=== PATIENT | male | born 1950 | race Caucasian/White ===

== ENCOUNTER 2021-08-17 13:42 | Inpatient (IN) | payer BC, MEDICARE ==
[2021-08-17] MEDS ORDERED: SODIUM CHLORIDE 0.9% 1,000 ML IV STA (14:05)
[2021-08-17 14:36] LABS: Anisocytosis Slight; Basophils % (A) 0 %; Eosinophils # (A) 0.1 k/uL (0-0.7); Eosinophils % (A) 0 %; HCT 33.4 % (39.0-53.0); Hypochromasia Marked; Lymphocytes # (A) 0.6 k/uL (1.0-4.8); Lymphocytes % (A) 4 %; MCH 29.4 pg (25.0-35.0); MCHC 29.9 g/dL (31.0-37.0); MCV 98.3 fL (80.0-100.0); Macrocytosis Slight; Monocytes # (A) 0.6 k/uL (0-1.0); Monocytes % (A) 3 %; Neutrophils # (A) 16.4 k/uL (1.3-7.7); Neutrophils % (A) 92 %; Platelet Count 285 k/uL (150-450); RBC 3.39 m/uL (4.30-5.90); RDW 18.2 % (11.5-15.5); WBC 17.7 k/uL (3.8-10.6)
[2021-08-17 14:46] LABS: ALT 25 U/L (4-49); AST 18 U/L (17-59); African American GFR (CKD) >90 (>60 ml/min/1.73 sqM); Albumin 2.9 g/dL (3.5-5.0); Alkaline Phosphatase 53 U/L (38-126); Anion Gap 7 mmol/L; Blood Urea Nitrogen 32 mg/dL (9-20); Calcium 8.5 mg/dL (8.4-10.2); Carbon Dioxide 27 mmol/L (22-30); Chloride 110 mmol/L (98-107); Glucose 54 mg/dL (74-99); Magnesium 1.8 mg/dL (1.6-2.3); Non-African American GFR(CKD) >90 (>60 ml/min/1.73 sqM); Potassium 5.1 mmol/L (3.5-5.1); Sodium 144 mmol/L (137-145); Total Bilirubin 0.5 mg/dL (0.2-1.3); Total Protein 5.6 g/dL (6.3-8.2)
[2021-08-17 14:53] LABS: INR 0.9 (<1.2); Prothrombin Time 10.2 sec (9.0-12.0)
[2021-08-17 14:56] LABS: Appearance,Urine Clear (Clear); Bacteria,Urine Rare /hpf; Bilirubin,Urine Negative (Negative); Blood,Urine Negative (Negative); Color,Urine Yellow; Glucose,Urine (UA) Negative (Negative); Ketones,Urine Trace (Negative); Leukocyte Esterase,Urine Negative (Negative); Nitrite,Urine Negative (Negative); PH, Urine 5.5 (5.0-8.0); Protein,Urine 1+ (Negative); RBC,Urine 1 /hpf (0-5); Specific Gravity,Urine 1.016 (1.001-1.035); Urobilinogen,Urine <2.0 mg/dL (<2.0); WBC,Urine 1 /hpf (0-5)
--- NOTE | 2021-08-17 14:57 | XR ---
EXAMINATION TYPE: XR chest 2V DATE OF EXAM: 08/17/2021 COMPARISON: 11/01/2013 INDICATION: Weakness TECHNIQUE: Frontal and lateral views of the chest are obtained. FINDINGS: The heart size is normal. The pulmonary vasculature is normal. Hyperinflation flattening the diaphragms compatible with COPD. Posterior pleural effusions are presen t. Minimal subsegmental atelectasis likely present at the left base. IMPRESSION: 1. Small bilateral pleural effusions with minimal subsegmental atelectasis left base.
[2021-08-17 14:58] LABS: Partial Thromboplastin Time 19.5 sec (22.0-30.0)
[2021-08-17 15:19] LABS: Glucose,Whole Blood 57 mg/dL (75-99)
[2021-08-17] MEDS ORDERED: cefTRIAXone IN SWFI 1,000 MG/10 ML SYRINGE IVP STA (15:19)
[2021-08-17] MEDS ORDERED: methylPREDNISolone SOD SUCCI 125 MG/2 ML VIAL IV STA (15:19)
[2021-08-17] MEDS: IPRATROPIUM-ALBUTEROL 3 ML NEB INHALATION STA (15:33)
[2021-08-17 15:36] LABS: Glucose,Whole Blood 81 mg/dL (75-99)
--- NOTE | 2021-08-17 15:43 | ED ---
General Adult HPI - General Chief complaint: Weakness Stated complaint: Weakness Time Seen by Provider: 08/17/21 13:45 Source: patient, EMS, RN notes reviewed, old records reviewed Mode of arrival: EMS Limitations: altered mental status - History of Present Illness Initial comments: This is a 71-year-old male who presents emergency Department from a retirement. Patient was sent in because of weakness and fatigue. According to EMS when they gave him a little bit of fluid he did seem to become more awake. Patient himself tells me he came in because he was having chest pain this morning and though the chest pain is currently gone it was pretty significant earlier today. Patient is a COPD as it is on oxygen at the retirement. Patient denies any recent fever chills. There is no report of any fever chills. Patient denies any abdominal pain. Patient denies any other complaints and at this time there is no further history available secondary to the fact that there is no family or caregiver with the patient - Related Data Home Medications Medication Instructions Recorded Confirmed Acetaminophen Tab [Tylenol] 650 mg PO Q4H PRN 08/17/21 08/17/21 Albuterol Inhaler [Ventolin Hfa 2 puff INHALATION RT-Q6H PRN 08/17/21 08/17/21 Inhaler] Budesonide [Pulmicort] 0.5 mg INHALATION RT-BID 08/17/21 08/17/21 Cephalexin [Keflex] 500 mg PO QID 08/17/21 08/17/21 Levothyroxine Sodium [Synthroid] 50 mcg PO DAILY@0500 08/17/21 08/17/21 Metoprolol Tartrate [Lopressor] 25 mg PO TID@0700,1300,1900 08/17/21 08/17/21 amLODIPine [Norvasc] 10 mg PO DAILY 08/17/21 08/17/21 hydrALAZINE HCL [Apresoline] 100 mg PO TID@0500,1300,2100 08/17/21 08/17/21 traMADol HCL 50 mg PO Q6H PRN 08/17/21 08/17/21 Allergies Allergy/AdvReac Type Severity Reaction Status Date / Time No Known Allergies Allergy Verified 08/17/21 14:21 Review of Systems ROS Statement: Those systems with pertinent positive or pertinent negative responses have been documented in the HPI. ROS Other: All systems not noted in ROS Statement are negative. Past Medical History Past Medical History: COPD, Hypertension History of Any Multi-Drug Resistant Organisms: None Reported Past Surgical History: No Surgical Hx Reported Additional Past Surgical History / Comment(s): colonoscopy Past Anesthesia/Blood Transfusion Reactions: No Reported Reaction Past Psychological History: No Psychological Hx Reported Smoking Status: Former smoker Past Alcohol Use History: Occasional Past Drug Use History: None Reported General Exam - General Exam Comments Initial Comments: GENERAL: Patient is well-developed and well-nourished. Patient is nontoxic and well- hydrated and is in mild distress. ENT: Neck is soft and supple. No significant lymphadenopathy is noted. Oropharynx is clear. Moist mucous membranes. Neck has full range of motion without eliciting any pain. EYES: The sclera were anicteric and conjunctiva were pink and moist. Extraocular movements were intact and pupils were equal round and reactive to light. Eyelids were unremarkable. PULMONARY: Unlabored respirations. Good breath sounds bilaterally. No audible rales rhonchi or wheezing was noted. CARDIOVASCULAR: There is a regular rate and rhythm without any murmurs gallops or rubs. ABDOMEN: Soft and nontender with normal bowel sounds. SKIN: Skin is clear with no lesions or rashes and otherwise unremarkable. NEUROLOGIC: Patient is alert and oriented 2. Cranial nerves II through XII are grossly intact. Motor and sensory are also intact. Normal speech, volume and content. Symmetrical smile. MUSCULOSKELETAL: Normal extremities with adequate strength and full range of motion. LYMPHATICS: No significant lymphadenopathy is noted PSYCHIATRIC: Normal psychiatric evaluation. Limitations: altered mental status Course Vital Signs 08/17/21 08/17/21 08/17/21 13:47 15:33 15:42 Temperature 98.4 F Pulse Rate 84 82 84 Respiratory 20 Rate Blood Pressure 141/64 O2 Sat by Pulse 97 Oximetry Medical Decision Making - Medical Decision Making Patient's chest x-ray shows no acute normalities. Patient received antibiotics in the emergency department a breathing treatment as well as steroids. EKG shows sinus rhythm at 87 bpm [place] interval is on a 48 QRS is 94 QT interval 342 QTC is 387. Patient's EKG shows no ST segment elevation or depression. - Lab Data Result diagrams: 08/17/21 14:19 08/17/21 14:19 Lab Results 08/17/21 08/17/21 08/17/21 Range/Units 14:19 14:19 14:19 WBC 17.7 H (3.8-10.6) k/uL RBC 3.39 L (4.30-5.90) m/uL Hgb 10.0 L (13.0-17.5) gm/dL Hct 33.4 L (39.0-53.0) % MCV 98.3 (80.0-100.0) fL MCH 29.4 (25.0-35.0) pg MCHC 29.9 L (31.0-37.0) g/dL RDW 18.2 H (11.5-15.5) % Plt Count 285 (150-450) k/uL MPV 10.0 Neutrophils % 92 % Lymphocytes % 4 % Monocytes % 3 % Eosinophils % 0 % Basophils % 0 % Neutrophils # 16.4 H (1.3-7.7) k/uL Lymphocytes # 0.6 L (1.0-4.8) k/uL Monocytes # 0.6 (0-1.0) k/uL Eosinophils # 0.1 (0-0.7) k/uL Basophils # 0.0 (0-0.2) k/uL Hypochromasia Marked Anisocytosis Slight Macrocytosis Slight PT 10.2 (9.0-12.0) sec INR 0.9 (<1.2) APTT 19.5 L (22.0-30.0) sec Sodium (137-145) mmol/L Potassium (3.5-5.1) mmol/L Chloride (98-107) mmol/L Carbon Dioxide (22-30) mmol/L Anion Gap mmol/L BUN (9-20) mg/dL Creatinine (0.66-1.25) mg/dL Est GFR (CKD-EPI)AfAm (>60 ml/min/1.73 sqM) Est GFR (CKD-EPI)NonAf (>60 ml/min/1.73 sqM) Glucose (74-99) mg/dL POC Glucose (mg/dL) (75-99) mg/dL POC Glu Electrical Panel Builder ID Plasma Lactic Acid Samir (0.7-2.0) mmol/L Calcium (8.4-10.2) mg/dL Magnesium (1.6-2.3) mg/dL Total Bilirubin (0.2-1.3) mg/dL AST (17-59) U/L ALT (4-49) U/L Alkaline Phosphatase (38-126) U/L Troponin I (0.000-0.034) ng/mL Total Protein (6.3-8.2) g/dL Albumin (3.5-5.0) g/dL Urine Color Yellow Urine Appearance Clear (Clear) Urine pH 5.5 (5.0-8.0) Ur Specific [place] 1.016 (1.001-1.035) Urine Protein 1+ H (Negative) Urine Glucose (UA) Negative (Negative) Urine Ketones Trace H (Negative) Urine Blood Negative (Negative) Urine Nitrite Negative (Negative) Urine Bilirubin Negative (Negative) Urine Urobilinogen <2.0 (<2.0) mg/dL Ur Leukocyte Esterase Negative (Negative) Urine RBC 1 (0-5) /hpf Urine WBC 1 (0-5) /hpf Urine Bacteria Rare H (None) /hpf 08/17/21 08/17/21 08/17/21 Range/Units 14:19 14:19 14:19 WBC (3.8-10.6) k/uL RBC (4.30-5.90) m/uL Hgb (13.0-17.5) gm/dL Hct (39.0-53.0) % MCV (80.0-100.0) fL MCH (25.0-35.0) pg MCHC (31.0-37.0) g/dL RDW (11.5-15.5) % Plt Count (150-450) k/uL MPV Neutrophils % % Lymphocytes % % Monocytes % % Eosinophils % % Basophils % % Neutrophils # (1.3-7.7) k/uL Lymphocytes # (1.0-4.8) k/uL Monocytes # (0-1.0) k/uL Eosinophils # (0-0.7) k/uL Basophils # (0-0.2) k/uL Hypochromasia Anisocytosis Macrocytosis PT (9.0-12.0) sec INR (<1.2) APTT (22.0-30.0) sec Sodium 144 (137-145) mmol/L Potassium 5.1 (3.5-5.1) mmol/L Chloride 110 H (98-107) mmol/L Carbon Dioxide 27 (22-30) mmol/L Anion Gap 7 mmol/L BUN 32 H (9-20) mg/dL Creatinine 0.69 (0.66-1.25) mg/dL Est GFR (CKD-EPI)AfAm >90 (>60 ml/min/1.73 sqM) Est GFR (CKD-EPI)NonAf >90 (>60 ml/min/1.73 sqM) Glucose 54 L (74-99) mg/dL POC Glucose (mg/dL) (75-99) mg/dL POC Glu Electrical Panel Builder ID Plasma Lactic Acid Samir 1.0 (0.7-2.0) mmol/L Calcium 8.5 (8.4-10.2) mg/dL Magnesium 1.8 (1.6-2.3) mg/dL Total Bilirubin 0.5 (0.2-1.3) mg/dL AST 18 (17-59) U/L ALT 25 (4-49) U/L Alkaline Phosphatase 53 (38-126) U/L Troponin I 0.020 (0.000-0.034) ng/mL Total Protein 5.6 L (6.3-8.2) g/dL Albumin 2.9 L (3.5-5.0) g/dL Urine Color Urine Appearance (Clear) Urine pH (5.0-8.0) Ur Specific [place] (1.001-1.035) Urine Protein (Negative) Urine Glucose (UA) (Negative) Urine Ketones (Negative) Urine Blood (Negative) Urine Nitrite (Negative) Urine Bilirubin (Negative) Urine Urobilinogen (<2.0) mg/dL Ur Leukocyte Esterase (Negative) Urine RBC (0-5) /hpf Urine WBC (0-5) /hpf Urine Bacteria (None) /hpf 08/17/21 08/17/21 Range/Units 15:09 15:34 WBC (3.8-10.6) k/uL RBC (4.30-5.90) m/uL Hgb (13.0-17.5) gm/dL Hct (39.0-53.0) % MCV (80.0-100.0) fL MCH (25.0-35.0) pg MCHC (31.0-37.0) g/dL RDW (11.5-15.5) % Plt Count (150-450) k/uL MPV Neutrophils % % Lymphocytes % % Monocytes % % Eosinophils % % Basophils % % Neutrophils # (1.3-7.7) k/uL Lymphocytes # (1.0-4.8) k/uL Monocytes # (0-1.0) k/uL Eosinophils # (0-0.7) k/uL Basophils # (0-0.2) k/uL Hypochromasia Anisocytosis Macrocytosis PT (9.0-12.0) sec INR (<1.2) APTT (22.0-30.0) sec Sodium (137-145) mmol/L Potassium (3.5-5.1) mmol/L Chloride (98-107) mmol/L Carbon Dioxide (22-30) mmol/L Anion Gap mmol/L BUN (9-20) mg/dL Creatinine (0.66-1.25) mg/dL Est GFR (CKD-EPI)AfAm (>60 ml/min/1.73 sqM) Est GFR (CKD-EPI)NonAf (>60 ml/min/1.73 sqM) Glucose (74-99) mg/dL POC Glucose (mg/dL) 57 L 81 (75-99) mg/dL POC Glu Electrical Panel Builder ID Jin, Ivis Jin, Ivis Plasma Lactic Acid Samir (0.7-2.0) mmol/L Calcium (8.4-10.2) mg/dL Magnesium (1.6-2.3) mg/dL Total Bilirubin (0.2-1.3) mg/dL AST (17-59) U/L ALT (4-49) U/L Alkaline Phosphatase (38-126) U/L Troponin I (0.000-0.034) ng/mL Total Protein (6.3-8.2) g/dL Albumin (3.5-5.0) g/dL Urine Color Urine Appearance (Clear) Urine pH (5.0-8.0) Ur Specific [place] (1.001-1.035) Urine Protein (Negative) Urine Glucose (UA) (Negative) Urine Ketones (Negative) Urine Blood (Negative) Urine Nitrite (Negative) Urine Bilirubin (Negative) Urine Urobilinogen (<2.0) mg/dL Ur Leukocyte Esterase (Negative) Urine RBC (0-5) /hpf Urine WBC (0-5) /hpf Urine Bacteria (None) /hpf Disposition Clinical Impression: COPD exacerbation, Weakness, Chest pain, Pneumonia Disposition: ADMITTED IP TO THIS HOSP Referrals: Nonstaff,Physician [Primary Care Provider] - 1-2 days Time of Disposition: 15:44
[2021-08-17] MEDS ORDERED: IPRATROPIUM-ALBUTEROL 3 ML NEB INHALATION PRN (16:55)
[2021-08-17] MEDS ORDERED: ALBUTEROL HFA INHALER INHALATION PRN (17:59)
[2021-08-17] MEDS ORDERED: METOPROLOL TARTRATE 25 MG TAB PO SCH (19:00)
[2021-08-17] MEDS: methylPREDNISolone SOD SUCCI 125 MG/2 ML VIAL IV SCH (19:42)
[2021-08-17] MEDS: BUDESONIDE 0.5 MG/2 ML NEBU INHALATION SCH ×2 (20:26→20:29)
[2021-08-17] MEDS ORDERED: CEFDINIR 300 MG CAP PO SCH (21:00)
[2021-08-17] MEDS ORDERED: HEPARIN SODIUM,PORCINE/PF 5,000 UNIT/0.5 ML SYRINGE SQ SCH (21:00)
[2021-08-17] MEDS ORDERED: FAMOTIDINE 20 MG/2 ML VIAL IV SCH (21:00)
[2021-08-17] MEDS ORDERED: METOPROLOL TARTRATE 25 MG TAB PO STA (23:26)
[2021-08-17] MEDS ORDERED: SODIUM CHLORIDE 0.9% 500 ML 500 ML IV ONE (23:27)
[2021-08-18] MEDS: methylPREDNISolone SOD SUCCI 125 MG/2 ML VIAL IV SCH ×4 (00:09→17:22)
[2021-08-18] MEDS ORDERED: DILTIAZEM DRIP BOLUS FROM BAG 1 MG SOLN IV ONE (02:28)
[2021-08-18] MEDS ORDERED: DILTIAZEM 125 MG in SODIUM CHLORIDE 0.9% 100 ML IV SCH (02:30)
[2021-08-18 02:54] LABS: Glucose,Whole Blood 191 mg/dL (75-99)
[2021-08-18] MEDS ORDERED: DEXTROSE 5% IN WATER 100 ML with AMIODARONE 150 MG IV ONE (04:00)
[2021-08-18] MEDS ORDERED: ENOXAPARIN 40 MG/0.4 ML SYRINGE SQ SCH (04:00)
[2021-08-18] MEDS ORDERED: AMIODARONE 450 MG in DEXTROSE 5% IN WATER 250 ML IV SCH ×2 (04:09)
[2021-08-18] MEDS ORDERED: AMIODARONE 360 MG in DEXTROSE 5% IN WATER 200 ML IV ONE ×2 (04:10)
[2021-08-18 06:11] LABS: Glucose,Whole Blood 201 mg/dL (75-99)
[2021-08-18] MEDS: INSULIN ASPART (NovoLOG) 100 UNIT/ML VIAL SQ SCH ×4 (06:41→20:52)
[2021-08-18] MEDS: LEVOTHYROXINE 50 MCG TAB PO SCH (06:47)
[2021-08-18] MEDS ORDERED: SODIUM CHLORIDE 0.9% 500 ML 500 ML IV ONE (07:04)
[2021-08-18] MEDS: BUDESONIDE 0.5 MG/2 ML NEBU INHALATION SCH ×2 (07:20→20:20)
--- NOTE | 2021-08-18 07:56 | CT ---
EXAMINATION TYPE: CT brain wo con DATE OF EXAM: 08/18/2021 HISTORY: Confusion, High D-dimer CT DLP: 1158.4 mGycm. Automated Exposure Control for Dose Reduction was Utilized. TECHNIQUE: CT scan of the head is performed without contrast. COMPARISON: None. FINDINGS: There is no acute intracranial hemorrhage or midline shift identified. There is mild diff use ventricular and sulcal prominence consistent with diffuse age-related cerebral atrophy. There is more severe low-attenuation in the deep and periventricular white matter, nonspecific finding favore d product of proximal vessel ischemic change in patient of this age. Dependent opacification suspecte d fluid in the left sphenoid sinus and maxillary sinus. IMPRESSION: No acute intracranial hemorrhage or midline shift. There is mild diffuse cerebral atrop hy and severe nonspecific white matter changes favored product of chronic small vessel ischemic carmona e in patient of this age.
--- NOTE | 2021-08-18 08:01 | CT ---
EXAMINATION TYPE: CT chest angio for PE DATE OF EXAM: 08/18/2021 COMPARISON: Chest CT June 05, 2013. Chest x-ray earlier today HISTORY: Shortness of breath, High D-dimer CT DLP: 255.6 mGycm. Automated Exposure Control for Dose Reduction was Utilized. CONTRAST: CTA scan of the thorax is performed without and with IV Contrast, patient injected with 100 ml mL of Isovue 370, pulmonary embolism protocol. MIP Images are created on CT scanner and reviewed. FINDINGS: LUNGS: Moderate underlying emphysematous changes present. There are small right greater than left ple ural effusions confirmed with associated compressive atelectasis. There is central peribronchial wall thickening bilaterally. There is additional 3.3 x 1.4 cm posterior right upper lung scar or less lik dinesh spiculated nodule axial image 24 extending towards right superhilar level with linear scarring th ought present. MEDIASTINUM: There is satisfactory enhancement of the pulmonary artery and its branches, there is no CT evidence for pulmonary embolism. Enlarged main pulmonary artery consistent with underlying pulmona ry artery hypertension . There are no greater than 1 cm hilar or mediastinal lymph nodes. No cardio megaly or pericardial effusion is seen. Moderate mixed plaque in the thoracic aorta without aneurysm or dissection. OTHER: Slight scoliotic curvature or positioning. IMPRESSION: No CT evidence for acute pulmonary embolism. Moderate emphysematous change with small siz e right greater than left pleural effusions. Focal scarring versus spiculated nodule posterior right upper lobe new from [address] follow-up to further evaluate.
--- NOTE | 2021-08-18 08:44 | P.HPIM ---
History of Present Illness This is a pleasant 71 years old male with past medical history of COPD, Hyperlipidemia, Hypertension, Osteoarthritis , Metabolic Encaphalopathy, Acute kidney failure with tubular necrosis, Cachexia, Chronic non-pressure ulcer of back, Rhabdomylosis was sent from [facility] with increased weakness and lethargy over the last 2-3days Patient is poor historian but as per staff with his he has been a retirement for the last 1-2 months and his been confused. pt looks cachectic and very frail, he is oriented to time ,place and person , but has no denture, his voice is muffled because of that he is been complaining from dyspnea and chest pain which is mild in the middle nonradiating and associated with very little cough. He says his shortness of breath was worse over the last 1 day and a half. Denies any abdominal pain or vomiting or diarrhea but he has low appetite. He denies any choking or swallow problem but he has no denture so we'll check for swallow evaluation Patient looks tachypneic with bilateral chest with some limited air entry but no ricardo wheezing. Patient states that he quit smoking about 10 years ago, used to smoke for more than 10 years. No alcohol or illicit drugs. He has multiple pressure ulcers he has one large pressure ulcers on the right leg laterally with drying scab Or any dressing . Also has multiple pressure ulcers with black eschar on both heels and left foot. The surrounding skin looks intact with no redness or swelling. On admission he was slightly tachypneic on 20, afebrile and heart rate was 84 and blood pressure 141/64, however overnight his blood pressure dropped with systolic 90s to 100, currently his blood pressure 104/68, also became tachycardic with heart rate 04/17/2049. He was saturating 9920% on 2-3 L oxygen via nasal cannula. He is mildly hypothermic at 97.2 His WBC is elevated at 17.7. Hemoglobin is 10.0. Platelet count 258. INR 0.9. BUN is 32 and creatinine 0.9. Troponin is 0.02 and less than 0.01. Glucose was on the low side 57 on admission and currently is 201. Urinalysis showed 1+ protein with no evidence of infection. Patient started on steroids and got a breathing treatment, IV fluids and started on amiodarone drips and Lovenox in the emergency room. D-dimer was elevated, therefore CTA of the chest was done which showed negative for pulmonary embolism, emphysematous changes with small pleural effusion. Also there is focal scattered versus speculated nodule in the right upper lobe we ordered stat CT of the brain and CT of the chest to rule out pulmonary embolism given his hypotension, tachycardia and tachypnea with elevated d-dimer. Also with mild hypoxia suspected. However patient confused per staff when he came in and could not be started on heparin drip before we rule out intracranial bleed before CT of the brain is also ordered with CT of the chest. Both tests came back negative Review of Systems CONSTITUTIONAL: No fever, no malaise, no fatigue. HEENT: No recent visual problems or hearing problems. Denied any sore throat. CARDIOVASCULAR: No orthopnea, PND, no palpitations, no syncope. PULMONARY: No shortness of breath, no cough, no hemoptysis. GASTROINTESTINAL: No diarrhea, no nausea, no vomiting, no abdominal pain. Normoactive bowel sounds. NEUROLOGICAL: No headaches, no weakness, no numbness. HEMATOLOGICAL: Denies any bleeding or petechiae. GENITOURINARY: Denies any burning micturition, frequency, or urgency. MUSCULOSKELETAL/RHEUMATOLOGICAL: Denies any joint pain, swelling, or any muscle pain. ENDOCRINE: Denies any polyuria or polydipsia. Past Medical History Past Medical History: COPD, Hyperlipidemia, Hypertension, Osteoarthritis (OA) Additional Past Medical History / Comment(s): Anemia, Metabolic Encaphalopathy, Acute kidney failure with tubular necrosis, Cachexia, Chronic non-pressure ulcer of back, Rhabdomylosis, History of Any Multi-Drug Resistant Organisms: None Reported Past Surgical History: No Surgical Hx Reported Additional Past Surgical History / Comment(s): colonoscopy Past Anesthesia/Blood Transfusion Reactions: No Reported Reaction Past Psychological History: No Psychological Hx Reported Smoking Status: Former smoker Past Alcohol Use History: Unable to Obtain Past Drug Use History: None Reported Medications and Allergies Home Medications Medication Instructions Recorded Confirmed Type Acetaminophen Tab [Tylenol] 650 mg PO Q4H PRN 08/17/21 08/17/21 History Albuterol Inhaler [Ventolin Hfa 2 puff INHALATION RT-Q6H PRN 08/17/21 08/17/21 History Inhaler] Budesonide [Pulmicort] 0.5 mg INHALATION RT-BID 08/17/21 08/17/21 History Cephalexin [Keflex] 500 mg PO QID 08/17/21 08/17/21 History Levothyroxine Sodium [Synthroid] 50 mcg PO DAILY@0500 08/17/21 08/17/21 History Metoprolol Tartrate [Lopressor] 25 mg PO TID@0700,1300,1900 08/17/21 08/17/21 History amLODIPine [Norvasc] 10 mg PO DAILY 08/17/21 08/17/21 History hydrALAZINE HCL [Apresoline] 100 mg PO TID@0500,1300,2100 08/17/21 08/17/21 History traMADol HCL 50 mg PO Q6H PRN 08/17/21 08/17/21 History Allergies Allergy/AdvReac Type Severity Reaction Status Date / Time No Known Allergies Allergy Verified 08/17/21 14:21 Physical Exam Vitals: Vital Signs Temp Pulse Pulse Resp BP BP Pulse Ox 08/18/21 04:26 138 H 28 H 102/64 100 08/18/21 03:57 146 H 32 H 100/61 100 08/18/21 03:23 147 H 30 H 95/63 99 08/18/21 01:01 97.2 F L 150 H 17 111/71 100 08/17/21 22:42 153 H 18 97/66 98 08/17/21 20:33 08/17/21 19:33 97.8 F 121 H 18 115/62 98 08/17/21 18:10 98.6 F 78 18 121/64 95 08/17/21 17:42 84 18 131/69 99 08/17/21 16:00 76 18 135/64 99 08/17/21 15:42 84 08/17/21 15:33 82 08/17/21 13:47 98.4 F 84 20 141/64 97 FiO2 08/18/21 04:26 08/18/21 03:57 08/18/21 03:23 08/18/21 01:01 08/17/21 22:42 08/17/21 20:33 3 08/17/21 19:33 08/17/21 18:10 08/17/21 17:42 08/17/21 16:00 08/17/21 15:42 08/17/21 15:33 08/17/21 13:47 Intake and Output 08/17/21 08/17/21 08/18/21 14:59 22:59 06:59 Intake Total 1.125 Output Total 200 600 Balance -200 -598.875 Intake: Intake, IV Titration 1.125 Amount Diltiazem 125 mg In 1.125 Sodium Chloride 0.9% 100 ml @ 7.5 MG/HR 7.5 mls/hr IV .[id number] [facility] Rx#: [id number] Output: Urine 200 600 Other: Voiding Method Indwelling Catheter # Bowel Movements 0 Weight 54.431 kg 54.431 kg GENERAL: The patient is alert and oriented x3, not in any acute distress. Cachectic HEENT: Pupils are round and equally reacting to light. EOMI. No scleral icterus. No conjunctival pallor. Normocephalic, atraumatic. No pharyngeal erythema. No thyromegaly. CARDIOVASCULAR: S1 and S2 present. No murmurs, rubs, or gallops. -PULMONARY: Chest is clear to auscultation, no wheezing or crackles. Barrel chest with limited air entry ABDOMEN: Soft, nontender, nondistended, normoactive bowel sounds. No palpable organomegaly. MUSCULOSKELETAL: No joint swelling or deformity. -EXTREMITIES: No cyanosis, clubbing, or pedal edema. multiple leg wounds , including both heels and large one on the right leg laterally with right area on the top of the wound NEUROLOGICAL: Gross neurological examination did not reveal any focal deficits. SKIN: No rashes. No petechiae Results CBC & Chem 7: 08/17/21 14:19 08/17/21 14:19 Labs: Abnormal Lab Results - Last 24 Hours (Table) 08/17/21 08/17/21 08/17/21 Range/Units 14:19 14:19 14:19 WBC 17.7 H (3.8-10.6) k/uL RBC 3.39 L (4.30-5.90) m/uL Hgb 10.0 L (13.0-17.5) gm/dL Hct 33.4 L (39.0-53.0) % MCHC 29.9 L (31.0-37.0) g/dL RDW 18.2 H (11.5-15.5) % Neutrophils # 16.4 H (1.3-7.7) k/uL Lymphocytes # 0.6 L (1.0-4.8) k/uL APTT 19.5 L (22.0-30.0) sec D-Dimer (<0.60) mg/L FEU Chloride (98-107) mmol/L BUN (9-20) mg/dL Glucose (74-99) mg/dL POC Glucose (mg/dL) (75-99) mg/dL Total Protein (6.3-8.2) g/dL Albumin (3.5-5.0) g/dL Urine Protein 1+ H (Negative) Urine Ketones Trace H (Negative) Urine Bacteria Rare H (None) /hpf 08/17/21 08/17/21 08/18/21 Range/Units 14:19 15:09 02:52 WBC (3.8-10.6) k/uL RBC (4.30-5.90) m/uL Hgb (13.0-17.5) gm/dL Hct (39.0-53.0) % MCHC (31.0-37.0) g/dL RDW (11.5-15.5) % Neutrophils # (1.3-7.7) k/uL Lymphocytes # (1.0-4.8) k/uL APTT (22.0-30.0) sec D-Dimer (<0.60) mg/L FEU Chloride 110 H (98-107) mmol/L BUN 32 H (9-20) mg/dL Glucose 54 L (74-99) mg/dL POC Glucose (mg/dL) 57 L 191 H (75-99) mg/dL Total Protein 5.6 L (6.3-8.2) g/dL Albumin 2.9 L (3.5-5.0) g/dL Urine Protein (Negative) Urine Ketones (Negative) Urine Bacteria (None) /hpf 08/18/21 08/18/21 Range/Units 06:02 06:05 WBC (3.8-10.6) k/uL RBC (4.30-5.90) m/uL Hgb (13.0-17.5) gm/dL Hct (39.0-53.0) % MCHC (31.0-37.0) g/dL RDW (11.5-15.5) % Neutrophils # (1.3-7.7) k/uL Lymphocytes # (1.0-4.8) k/uL APTT (22.0-30.0) sec D-Dimer 0.97 H (<0.60) mg/L FEU Chloride (98-107) mmol/L BUN (9-20) mg/dL Glucose (74-99) mg/dL POC Glucose (mg/dL) 201 H (75-99) mg/dL Total Protein (6.3-8.2) g/dL Albumin (3.5-5.0) g/dL Urine Protein (Negative) Urine Ketones (Negative) Urine Bacteria (None) /hpf Thrombosis Risk Factor Assmnt - Choose All That Apply Any of the Below Risk Factors Present?: Yes Each Factor Represents 1 point: Abnormal pulmonary function (COPD) Other Risk Factors: Yes Each Risk Factor Represents 2 Points: Age 61-74 years Thrombosis Risk Factor Assessment Total Risk Factor Score: 3 Thrombosis Risk Factor Assessment Level: Moderate Risk Assessment and Plan Assessment: Multiple pressure ulcers with suspected infection Possible Severe sepsis COPD with exacerbation Hypotension and tachycardia Moderate to severe calories and protein malnutrition multiple leg wounds elevated d-dimer, rule out PE ruled out focal scattered versus speculated nodule in the right upper lobe History of hypertension, currently he is hypotensive Hyperlipidemia Dehydration Chronic altered mental status with some elements of acute related to metabolic encephalopathy. Possible dementia History of osteoarthritis History of chronic nonpressure ulcer of the back Plan: This is a pleasant 71 years old male who presents with COPD and possible infect ed pressure ulcers and hypotension Continue with steroids Continue with antibiotics . We will start the patient on clindamycin Continue with normal saline hydration check pro-calcitonin and infectious disease consult Check thyroid function, hemoglobin A1c and potential started the nursery. cardiology consult for the chest pain and tachycardia Pulmonary consult for COPD check leg ultrasound to rule out DVT in view of elevated d-dimer and leg wounds Labs and medication were reviewed.. Continue same treatment. Continue with symptomatic treatment. Resume home medication. Monitor lytes and vitals. DVT and GI prophylaxis. Further recommendations depends on the clinical course of the patient DVT prophylaxis: Subcutaneous LovenoxGI Prophylaxis: Pepcid PT/OT: Pending Prognosis is guarded CODE STATUS Full code per per staff
[2021-08-18 09:14] LABS: African American GFR (CKD) 87.4 (60.0-200.0); Calcium 8.6 mg/dL (8.7-10.3); Carbon Dioxide 23.2 mmol/L (20.0-27.5); Chloride 107 mmol/L (96-109); Glucose 197 mg/dL (70-110); Non-African American GFR(CKD) 75.4 (60.0-200.0); Potassium 5.6 mmol/L (3.5-5.5); Sodium 143 mmol/L (135-145)
[2021-08-18 09:55] LABS: Basophils # (A) 0 X 10*3/uL (0.00-0.10); Basophils % (A) 0 %; Eosinophils # (A) 0.07 X 10*3/uL (0.04-0.35); Eosinophils % (A) 0.7 %; HCT 28.2 % (39.6-50.0); HGB 8.4 g/dL (13.0-17.0); Immature Grans, Automated 0.5 %; Lymphocytes # (A) 0.35 X 10*3/uL (0.90-5.00); Lymphocytes % (A) 3.4 %; MCH 28.8 pg (27.0-32.0); MCHC 29.8 g/dL (32.0-37.0); MCV 96.6 fL (80.0-97.0); Monocytes # (A) 0.07 X 10*3/uL (0.20-1.00); Monocytes % (A) 0.7 %; NRBC Per 100 WBC 0.2 /100 WBCS (0.0-0.0); Neutrophils # (A) 9.69 X 10*3/uL (1.80-7.70); Neutrophils % (A) 94.7 %; Platelet Count 240 X 10*3/uL (140-440); RBC 2.92 X 10*6/uL (4.40-5.60); RDW 21.4 % (11.5-14.5); WBC 10.23 X 10*3/uL (4.50-10.00)
[2021-08-18] MEDS: CLINDAMYCIN 300 MG in DEXTROSE 5% IN WATER 50 ML IVPB SCH ×4 (10:00→17:52)
[2021-08-18] MEDS: FAMOTIDINE 20 MG TAB PO SCH ×2 (10:00→21:10)
[2021-08-18] MEDS: SODIUM CHLORIDE 0.9% 1,000 ML IV SCH ×2 (10:03→21:09)
[2021-08-18] MEDS: METOPROLOL TARTRATE 25 MG TAB PO SCH ×2 (10:04→21:10)
--- NOTE | 2021-08-18 11:13 | P.CRDCN ---
History of Present Illness History of present illness: HISTORY OF PRESENTING ILLNESS This is a pleasant 71-year-old male past medical history significant for COPD, former smoker, hypertension, hyperlipidemia, hypothyroidism, pressure ulcers. He does not follow with a pump technician. We have been asked to see in consultation for SVT. Patient presents from a long-term with generalized weakness, cough, shortness of breath. He states he had some chest discomfort across his anterior chest. Non-radiating. Non-exertional, it has resolved. Patient is alert, oriented to person and knows he is in the hospital. He denies any chest pain. He does endorse some shortness of breath. He denies any fever, chills, lightheadedness, dizziness, syncope. He denies any history of LA, Stroke, Diabetes, or CAD. He does have multiple wounds on bilateral lower extremities. On admission, he initially was in sinus rhythm. However, went into SVT vs atrial flutter with rapid ventricular response, HR 150s. Patient hypotensive. Started on IV amiodarone and IV fluids DIAGNOSTICS EKG on admission, Sinus rhythm heart rate 87, minimal ST depression in inferior leads, T wave inversion in lead aVL, LVH. Prior EKG in 2013 with similar findings Repeat EKG SVT vs Aflutter with RVR HR 150s-160s Telemetry tracings indicate atrial flutter with HR 130s-140s Chest xray COPD, small bilateral pleural effusions CTA- no PE, moderate emphysematous change with small right greater than left pleural effusion. Focal scarring vs nodule posterior right upper lobe CT Brain- no acute intracranial abnormality, mild diffuse cerebral atrophy, severe non-specific white matter changes Laboratory reviewed, WBC 17.7, hemoglobin 10, platelets 285, sodium 144, potassium 5.1, BUN 32, serum creatinine 0.6, troponin negative 2. Current home medications include hydralazine 100 mg 3 times a day, amlodipine 10 mg daily, metoprolol titrate 25 mg 3 times a day REVIEW OF SYSTEMS At the time of my exam: CONSTITUTIONAL: Denies fever or chills. CARDIOVASCULAR: Denies chest pain, Reports shortness of breath, Denies orthopnea, PND or palpitations. RESPIRATORY: Denies cough. GASTROINTESTINAL: Denies abdominal pain, diarrhea, constipation, nausea or vomiting. MUSCULOSKELETAL: Denies myalgias. NEUROLOGIC: Denies numbness, tingling, headache or weakness. ENDOCRINE: Denies fatigue, weight change, polydipsia or polyurina. GENITOURINARY: Denies burning, hematuria or urgency with micturation. HEMATOLOGIC: +history of anemia Denies bleeding. PHYSICAL EXAMINATION VItals reviewed CONSTITUTIONAL: No apparent distress. HEENT: Head is normocephalic. Pupils are equal, round. Sclerae anicteric. Mucous membranes of the mouth are dry. No JVD. No carotid bruit. CHEST EXAMINATION: Lungs are diminished bilaterally to auscultation. No chest wall tenderness is noted on palpation or with deep breathing. HEART EXAMINATION: Regular tachycardic rate and rhythm. S1, S2 heard. Systolic murmur noted at apex and base. ABDOMEN: Soft, nontender. Positive bowel sounds. EXTREMITIES: 1+ dorsal pedis peripheral pulses, no lower extremity edema and no calf tenderness. SKIN: multiple pressure ulcer wounds on bilateral lower extremities NEUROLOGIC EXAMINATION: Patient is awake, alert and oriented x2 ASSESSMENT SVT vs atypical atrial flutter with RVR COPD Hypotension Leukocytosis Anemia History of hypertension History of dyslipidemia Anemia PLAN Continue IV amiodarone Metoprolol tartrate 25mg BID Hold hydralazine Continue Lovenox at this time Obtain 2D echocardiogram and doppler study to assess cardiac structure and function. Check TSH Prognosis guarded Further recommendations based on clinical course Thank you kindly for this consultation. Nurse practitioner note has been reviewed by physician. Signing provider agrees with the documented findings, assessment, and plan of care. Past Medical History Past Medical History: COPD, Hyperlipidemia, Hypertension, Osteoarthritis (OA) Additional Past Medical History / Comment(s): Anemia, Metabolic Encaphalopathy, Acute kidney failure with tubular necrosis, Cachexia, Chronic non-pressure ulcer of back, Rhabdomylosis, History of Any Multi-Drug Resistant Organisms: None Reported Past Surgical History: No Surgical Hx Reported Additional Past Surgical History / Comment(s): colonoscopy Past Anesthesia/Blood Transfusion Reactions: No Reported Reaction Past Psychological History: No Psychological Hx Reported Smoking Status: Former smoker Past Alcohol Use History: Unable to Obtain Past Drug Use History: None Reported Medications and Allergies Home Medications Medication Instructions Recorded Confirmed Type Acetaminophen Tab [Tylenol] 650 mg PO Q4H PRN 08/17/21 08/17/21 History Albuterol Inhaler [Ventolin Hfa 2 puff INHALATION RT-Q6H PRN 08/17/21 08/17/21 History Inhaler] Budesonide [Pulmicort] 0.5 mg INHALATION RT-BID 08/17/21 08/17/21 History Cephalexin [Keflex] 500 mg PO QID 08/17/21 08/17/21 History Levothyroxine Sodium [Synthroid] 50 mcg PO DAILY@0500 08/17/21 08/17/21 History Metoprolol Tartrate [Lopressor] 25 mg PO TID@0700,1300,1900 08/17/21 08/17/21 History amLODIPine [Norvasc] 10 mg PO DAILY 08/17/21 08/17/21 History hydrALAZINE HCL [Apresoline] 100 mg PO TID@0500,1300,2100 08/17/21 08/17/21 History traMADol HCL 50 mg PO Q6H PRN 08/17/21 08/17/21 History Allergies Allergy/AdvReac Type Severity Reaction Status Date / Time No Known Allergies Allergy Verified 08/17/21 14:21 Physical Exam Vitals: Vital Signs Temp Pulse Pulse Resp BP BP Pulse Ox 08/18/21 04:26 138 H 28 H 102/64 100 08/18/21 03:57 146 H 32 H 100/61 100 08/18/21 03:23 147 H 30 H 95/63 99 08/18/21 01:01 97.2 F L 150 H 17 111/71 100 08/17/21 22:42 153 H 18 97/66 98 08/17/21 20:33 08/17/21 19:33 97.8 F 121 H 18 115/62 98 08/17/21 18:10 98.6 F 78 18 121/64 95 08/17/21 17:42 84 18 131/69 99 08/17/21 16:00 76 18 135/64 99 08/17/21 15:42 84 08/17/21 15:33 82 08/17/21 13:47 98.4 F 84 20 141/64 97 FiO2 08/18/21 04:26 08/18/21 03:57 08/18/21 03:23 08/18/21 01:01 08/17/21 22:42 08/17/21 20:33 3 08/17/21 19:33 08/17/21 18:10 08/17/21 17:42 08/17/21 16:00 08/17/21 15:42 08/17/21 15:33 08/17/21 13:47 Intake and Output 08/17/21 08/18/21 08/18/21 22:59 06:59 14:59 Intake Total 1.125 Output Total 200 600 Balance -200 -598.875 Intake: Intake, IV Titration 1.125 Amount Diltiazem 125 mg In 1.125 Sodium Chloride 0.9% 100 ml @ 7.5 MG/HR 7.5 mls/hr IV .[id number] [facility] Rx#: [id number] Output: Urine 200 600 Other: Voiding Method Indwelling Catheter # Bowel Movements 0 Weight 54.431 kg Results 08/18/21 06:04 08/18/21 06:04 Cardiac Enzymes 08/17/21 08/17/21 08/18/21 Range/Units 14:19 14:19 06:04 AST 18 (17-59) U/L Troponin I 0.020 <0.012 (0.000-0.034) ng/mL Coagulation 08/17/21 Range/Units 14:19 PT 10.2 (9.0-12.0) sec APTT 19.5 L (22.0-30.0) sec CBC 08/17/21 Range/Units 14:19 WBC 17.7 H (3.8-10.6) k/uL RBC 3.39 L (4.30-5.90) m/uL Hgb 10.0 L (13.0-17.5) gm/dL Hct 33.4 L (39.0-53.0) % Plt Count 285 (150-450) k/uL Comprehensive Metabolic Panel 08/17/21 Range/Units 14:19 Sodium 144 (137-145) mmol/L Potassium 5.1 (3.5-5.1) mmol/L Chloride 110 H (98-107) mmol/L Carbon Dioxide 27 (22-30) mmol/L BUN 32 H (9-20) mg/dL Creatinine 0.69 (0.66-1.25) mg/dL Glucose 54 L (74-99) mg/dL Calcium 8.5 (8.4-10.2) mg/dL AST 18 (17-59) U/L ALT 25 (4-49) U/L Alkaline Phosphatase 53 (38-126) U/L Total Protein 5.6 L (6.3-8.2) g/dL Albumin 2.9 L (3.5-5.0) g/dL Current Medications Generic Name Dose Route Start Last Admin Trade Name Freq PRN Reason Stop Dose Admin Acetaminophen 650 mg 08/17/21 17:59 Acetaminophen Tab 325 Mg Tab PO Q4H PRN Pain or Fever > 100.5 Albuterol/Ipratropium 3 ml 08/17/21 16:55 Ipratropium-Albuterol 3 Ml Neb INHALATION RT-Q4H PRN Shortness Of Breath Or Wheezing Budesonide 0.5 mg 08/17/21 20:00 08/18/21 07:20 Budesonide 0.5 Mg/2 Ml Nebu INHALATION Not Given RT-BID GRACIE Cefdinir 300 mg 08/17/21 21:00 08/17/21 21:31 Cefdinir 300 Mg Cap PO 08/27/21 21:01 300 mg BID GRACIE Administration Protocol Enoxaparin Sodium 40 mg 08/18/21 04:00 08/18/21 03:54 Enoxaparin 40 Mg/0.4 Ml Syringe SQ 40 mg Q12H GRACIE Administration Famotidine 20 mg 08/18/21 09:00 Famotidine 20 Mg Tab PO BID GRACIE Amiodarone HCl 360 mg/ 200 mls @ 33.333 mls/hr 08/18/21 04:10 08/18/21 04:16 Dextrose/Water IV 08/18/21 10:09 1 mg/min .Q6H ONE 33.333 mls/hr Administration Protocol 1 MG/MIN Amiodarone HCl 450 mg/ 250 mls @ 16.667 mls/hr 08/18/21 10:09 Dextrose/Water IV 08/19/21 04:08 .Q15H GRACIE Protocol 0.5 MG/MIN Sodium Chloride 1,000 mls @ 100 mls/hr 08/18/21 07:15 Saline 0.9% IV .Q10H GRACIE Sodium Chloride 500 mls @ 999 mls/hr 08/18/21 07:04 Saline 0.9% IV 08/18/21 07:34 .Q31M ONE Insulin Aspart 0 unit 08/18/21 07:30 08/18/21 06:41 Insulin Aspart (Novolog) 100 Unit/Ml Vial SQ 2 unit ACHS GRACIE Administration Protocol Levothyroxine Sodium 50 mcg 08/18/21 05:00 08/18/21 06:47 Levothyroxine 50 Mcg Tab PO 50 mcg DAILY@0500 GRACIE Administration Methylprednisolone Sodium Succinate 60 mg 08/17/21 18:00 08/18/21 06:46 Methylprednisolone Sod Succi 125 Mg/2 Ml Vial IV 60 mg Q6HR GRACIE Administration Tramadol HCl 50 mg 08/17/21 17:59 Tramadol 50 Mg Tab PO Q6H PRN Pain Intake and Output 08/17/21 08/18/21 08/18/21 22:59 06:59 14:59 Intake Total 1.125 Output Total 200 600 Balance -200 -598.875 Intake: Intake, IV Titration 1.125 Amount Diltiazem 125 mg In 1.125 Sodium Chloride 0.9% 100 ml @ 7.5 MG/HR 7.5 mls/hr IV .[id number] [facility] Rx#: [id number] Output: Urine 200 600 Other: Voiding Method Indwelling Catheter # Bowel Movements 0 Weight 54.431 kg 08/17/21 14:19 08/17/21 14:19
[2021-08-18 12:08] LABS: Glucose,Whole Blood 154 mg/dL (75-99)
--- NOTE | 2021-08-18 12:26 | CA ---
Transthoracic Echo Report Name: Dani Jimenes Age: 71 Gender: M : 1950 Exam Date: 08/18/2021 11:30 Exam Location: [facility] Ht (in): 66 Wt (lb): 120 Ordering Physician: Lucille Decker Attending/Referring Phys: Plate Washer Nkechi Cueva RDCS Procedure CPT: Indications: atrial flutter Cardiac Hx: Technical Quality: Fair Contrast 1: Total Dose (mL): Contrast 2: Total Dose (mL): MEASUREMENTS (Male / Female) Normal Values 2D ECHO LV Diastolic Diameter PLAX 3.9 cm 4.2 - 5.9 / 3.9 - 5.3 cm LV Systolic Diameter PLAX 2.3 cm IVS Diastolic Thickness 0.9 cm 0.6 - 1.0 / 0.6 - 0.9 cm LVPW Diastolic Thickness 1.1 cm 0.6 - 1.0 / 0.6 - 0.9 cm LV Relative Wall Thickness 0.5 LA Volume 105.1 cm??? 18 - 58 / 22 - 52 cm??? DOPPLER AV Peak Velocity 350.8 cm/s AV Peak Gradient 49.2 mmHg AV Mean Velocity 262.0 cm/s AV Mean Gradient 30.1 mmHg AV Velocity Time Integral 86.7 cm AI Peak Velocity 452.4 cm/s AI Peak Gradient 81.8 mmHg AI Pressure Half Time 270.2 ms LVOT Peak Velocity 82.3 cm/s LVOT Peak Gradient 2.7 mmHg MV Area PHT 5.3 cm??? Mitral E Point Velocity 135.4 cm/s Mitral A Point Velocity 69.4 cm/s Mitral E to A Ratio 2.0 MV Deceleration Time 144.2 ms TR Peak Velocity 306.3 cm/s TR Peak Gradient 37.5 mmHg Right Ventricular Systolic Press 42.4 mmHg FINDINGS Left Ventricle Left ventricular cavity size normal. Left ventricular wall thickness normal. No obvious regional wall motion abnormalities. Left ventricular ejection fraction is estimated at 50 %. Abnormal left ventricular diastolic filling pattern. Right Ventricle Mild pulmonary hypertension. Normal right ventricular size. Right Atrium Normal right atrial size. Left Atrium Severely increased left atrial volume. No evidence for an atrial septal defect. Mitral Valve Mild mitral annular calcification. Moderate mitral regurgitation. Aortic Valve Moderate aortic stenosis with a peak gradient of 49 mmHg and a mean gradient of 30 mmHg. [id number] aortic regurgitation. Tricuspid Valve Mild tricuspid regurgitation. Pulmonic Valve Pulmonic valve not well visualized. Pericardium No pericardial effusion. Aorta Normal size aortic root and proximal ascending aorta. CONCLUSIONS Left ventricular ejection fraction borderline at 50% Severely dilated left atrium Moderate mitral regurgitation Moderate aortic stenosis with mean gradient of 30 mmHg Mild to moderate aortic regurgitation Mild tricuspid regurgitation Previewed by: Dr. Alex Corbett DO (Electronically Signed) Final Date: 18 August 2021 12:25
--- NOTE | 2021-08-18 12:27 | P.CNPUL ---
History of Present Illness Consult date: 08/18/21 Requesting physician: Kenny Acuna Reason for consult: dyspnea Chief complaint: Shortness of breath History of present illness: 71-year-old male patient with known history of severe end-stage COPD, with a baseline FEV1 of 0.67 L or 25% predicted as November 2020 PFT, on home oxygen patient usually wears 3 L of oxygen on a regular basis, ex-smoker, chronic dyspnea, hypertension, hyperlipidemia, osteoarthritis, cachexia, chronic nonhealing ulcers involving bilateral feet. Patient was recently required hospitalization in the last several weeks at the [facility] when he required mechanical ventilator support. Patient follows with Dr. Hall in the pulmonary clinic. On 08/17/2021 patient presents to the emergency department from a assisted because of weakness and fatigue. Patient was also complaining of some chest discomfort in the morning, and shortness of breath. Denied any recent fever or chills. No worsening cough wheezing or phlegm production. No hemoptysis. Chest x-ray showed small bilateral pleural effusions with minimal subsegmental atelectasis at the left base. EKG showed sinus rhythm, with minimal ST depression in inferior leads, and T-wave inversion in aVL and LVH. Laboratory evaluation showed elevated white count of 17.7, hemoglobin of 10.0, platelet count of 285, d-dimer was mildly elevated to 0.97, sodium is 144, potassium is 5.1, BUN of 32, creatinine 0.69, 2 sets of troponins were negative at 0.020, less than 0.012, pro-calcitonin level was elevated to 0.50, TSH was within normal limits, LFTs were within normal limits, plasma lact ic acid was 1.3 urinalysis without sign of infection. CT angiogram of the chest showed no evidence of acute pulmonary embolism, and moderate emphysematous change with small size right greater than left pleural effusions. There was focal scarring versus spiculated nodule in the posterior right upper lobe which is new from 2014 study with recommendation of follow-up PET scan. Patient is currently on 3 L of oxygen pulse ox is 99%, he is very short of breath at rest, but appears to be in no acute distress, he is able to answer some simple questions, but he does have conversational dyspnea as well. Afebrile, he is tachycardic, cardiology has been consulted for SVT. Patient is on amiodarone i nfusion at 1 mg/m for rate control, he is on empiric antibiotics and breathing treatments and IV steroids. Review of Systems All systems: negative Constitutional: Denies chills, Denies fever Eyes: denies blurred vision, denies pain Ears, nose, mouth and throat: Denies headache, Denies sore throat Cardiovascular: Reports chest pain, Denies shortness of breath Respiratory: Reports dyspnea, Denies cough Gastrointestinal: Denies abdominal pain, Denies diarrhea, Denies nausea, Denies vomiting Musculoskeletal: Denies myalgias Integumentary: Denies pruritus, Denies rash Neurological: Denies numbness, Denies weakness Psychiatric: Denies anxiety, Denies depression Endocrine: Denies fatigue, Denies weight change Past Medical History Past Medical History: COPD, Hyperlipidemia, Hypertension, Osteoarthritis (OA) Additional Past Medical History / Comment(s): Anemia, Metabolic Encaphalopathy, Acute kidney failure with tubular necrosis, Cachexia, Chronic non-pressure ulcer of back, Rhabdomylosis, History of Any Multi-Drug Resistant Organisms: None Reported Past Surgical History: No Surgical Hx Reported Additional Past Surgical History / Comment(s): colonoscopy Past Anesthesia/Blood Transfusion Reactions: No Reported Reaction Past Psychological History: No Psychological Hx Reported Smoking Status: Former smoker Past Alcohol Use History: Unable to Obtain Past Drug Use History: None Reported Medications and Allergies Home Medications Medication Instructions Recorded Confirmed Type Acetaminophen Tab [Tylenol] 650 mg PO Q4H PRN 08/17/21 08/17/21 History Albuterol Inhaler [Ventolin Hfa 2 puff INHALATION RT-Q6H PRN 08/17/21 08/17/21 History Inhaler] Budesonide [Pulmicort] 0.5 mg INHALATION RT-BID 08/17/21 08/17/21 History Cephalexin [Keflex] 500 mg PO QID 08/17/21 08/17/21 History Levothyroxine Sodium [Synthroid] 50 mcg PO DAILY@0500 08/17/21 08/17/21 History Metoprolol Tartrate [Lopressor] 25 mg PO TID@0700,1300,1900 08/17/21 08/17/21 History amLODIPine [Norvasc] 10 mg PO DAILY 08/17/21 08/17/21 History hydrALAZINE HCL [Apresoline] 100 mg PO TID@0500,1300,2100 08/17/21 08/17/21 History traMADol HCL 50 mg PO Q6H PRN 08/17/21 08/17/21 History Allergies Allergy/AdvReac Type Severity Reaction Status Date / Time No Known Allergies Allergy Verified 08/17/21 14:21 Physical Exam Vitals: Vital Signs Temp Pulse Pulse Resp BP BP Pulse Ox 08/18/21 08:00 97.7 F 138 H 22 110/65 99 08/18/21 04:26 138 H 28 H 102/64 100 08/18/21 03:57 146 H 32 H 100/61 100 08/18/21 03:23 147 H 30 H 95/63 99 08/18/21 01:01 97.2 F L 150 H 17 111/71 100 08/17/21 22:42 153 H 18 97/66 98 08/17/21 20:33 08/17/21 19:33 97.8 F 121 H 18 115/62 98 08/17/21 18:10 98.6 F 78 18 121/64 95 08/17/21 17:42 84 18 131/69 99 08/17/21 16:00 76 18 135/64 99 08/17/21 15:42 84 08/17/21 15:33 82 08/17/21 13:47 98.4 F 84 20 141/64 97 FiO2 08/18/21 08:00 08/18/21 04:26 08/18/21 03:57 08/18/21 03:23 08/18/21 01:01 08/17/21 22:42 08/17/21 20:33 3 08/17/21 19:33 08/17/21 18:10 08/17/21 17:42 08/17/21 16:00 08/17/21 15:42 08/17/21 15:33 08/17/21 13:47 Intake and Output 08/17/21 08/18/21 08/18/21 22:59 06:59 14:59 Intake Total 1.125 Output Total 200 600 Balance -200 -598.875 Intake: Intake, IV Titration 1.125 Amount Diltiazem 125 mg In 1.125 Sodium Chloride 0.9% 100 ml @ 7.5 MG/HR 7.5 mls/hr IV .[id number] [facility] Rx#: [id number] Output: Urine 200 600 Other: Voiding Method Indwelling Catheter Indwelling Catheter # Bowel Movements 0 Weight 54.431 kg GENERAL EXAM: Alert, pleasant, cachectic-looking 71-year-old white male, on 3 L of oxygen pulse ox is 99%, comfortable in no apparent distress. HEAD: Normocephalic/atraumatic. EYES: Normal reaction of pupils, equal size. Conjunctiva pink, sclera white. NOSE: Clear with pink turbinates. THROAT: No erythema or exudates. NECK: No masses, no JVD, no thyroid enlargement, no adenopathy. CHEST: No chest wall deformity. Symmetrical expansion. LUNGS: Equal air entry with diffuse crackles, diminished breath sounds CVS: Regular rate and rhythm, normal S1 and S2, no gallops, no murmurs, no rubs ABDOMEN: Soft, nontender. No hepatosplenomegaly, normal bowel sounds, no guarding or rigidity. EXTREMITIES: No clubbing, no edema, no cyanosis, 2+ pulses and upper and lower extremities. MUSCULOSKELETAL: Muscle strength and tone normal. SPINE: No scoliosis or deformity SKIN: No rashes CENTRAL NERVOUS SYSTEM: Alert and oriented -3. No focal deficits, tone is normal in all 4 extremities. PSYCHIATRIC: Alert and oriented -3. Appropriate affect. Intact judgment and insight. Results - Laboratory Findings CBC and BMP: 08/18/21 06:04 08/18/21 06:04 PT/INR, D-dimer PT 10.2 sec (9.0-12.0) 08/17/21 14:19 INR 0.9 (<1.2) 08/17/21 14:19 D-Dimer 0.97 mg/L FEU (<0.60) H 08/18/21 06:05 Abnormal lab findings: Abnormal Labs 08/17/21 08/17/21 08/17/21 14:19 14:19 14:19 WBC 17.7 H RBC 3.39 L Hgb 10.0 L Hct 33.4 L MCHC 29.9 L RDW 18.2 H MPV Absolute Nucleated RBC Immature Gran # Neutrophils # 16.4 H Lymphocytes # 0.6 L Monocytes # NRBC/100 WBC Diff APTT 19.5 L D-Dimer Potassium Chloride BUN BUN/Creatinine Ratio Glucose POC Glucose (mg/dL) Calcium Total Protein Albumin Procalcitonin Urine Protein 1+ H Urine Ketones Trace H Urine Bacteria Rare H 08/17/21 08/17/21 08/18/21 14:19 15:09 02:52 WBC RBC Hgb Hct MCHC RDW MPV Absolute Nucleated RBC Immature Gran # Neutrophils # Lymphocytes # Monocytes # NRBC/100 WBC Diff APTT D-Dimer Potassium Chloride 110 H BUN 32 H BUN/Creatinine Ratio Glucose 54 L POC Glucose (mg/dL) 57 L 191 H Calcium Total Protein 5.6 L Albumin 2.9 L Procalcitonin Urine Protein Urine Ketones Urine Bacteria 08/18/21 08/18/21 08/18/21 06:02 06:04 06:04 WBC 10.23 H RBC 2.92 L Hgb 8.4 L Hct 28.2 L MCHC 29.8 L RDW 21.4 H MPV 13.0 H Absolute Nucleated RBC 0.02 H Immature Gran # 0.05 H Neutrophils # 9.69 H Lymphocytes # 0.35 L Monocytes # 0.07 L NRBC/100 WBC Diff 0.2 H APTT D-Dimer Potassium Chloride BUN BUN/Creatinine Ratio Glucose POC Glucose (mg/dL) 201 H Calcium Total Protein Albumin Procalcitonin 0.50 H Urine Protein Urine Ketones Urine Bacteria 08/18/21 08/18/21 06:04 06:05 WBC RBC Hgb Hct MCHC RDW MPV Absolute Nucleated RBC Immature Gran # Neutrophils # Lymphocytes # Monocytes # NRBC/100 WBC Diff APTT D-Dimer 0.97 H Potassium 5.6 H Chloride BUN 32.0 H BUN/Creatinine Ratio 32.00 H Glucose 197 H POC Glucose (mg/dL) Calcium 8.6 L Total Protein Albumin Procalcitonin Urine Protein Urine Ketones Urine Bacteria - Diagnostic Findings Chest x-ray: report reviewed, image reviewed CT scan - chest: report reviewed, image reviewed Assessment and Plan Plan: Assessment: #1. Acute exacerbation of COPD #2. A flutter with RVR, currently on amiodarone infusion #3. History of severe end-stage COPD with baseline FEV1 of 0.5% of predicted #4. Chronic hypoxic respiratory failure related to the above #5. Former smoker #6. Nonhealing bilateral lower extremity ulcers #7. Elevated pro-calcitonin level, rule out possibility of infection #8. Mildly elevated d-dimer, with no CT evidence of pulmonary embolism #9. Focal scarring versus spiculated nodule in the right upper lobe, will need outpatient follow-up, and possible PET scan #10. Chronic cachexia #11. Hypertension #12. Hyperlipidemia #13. Hypothyroidism #14. Osteoarthritis Plan: Continue IV steroids Continue nebulized bronchodilators Continue antibiotics Obtain blood cultures Rate control and anticoagulation per cardiology We'll continue to follow I have personally seen and examined the patient, performed the documentation and the assessment and plan as written. Number of minutes spent on the visit: 15 Time with Patient: Greater than 30
[2021-08-18] MEDS: AMIODARONE 450 MG in DEXTROSE 5% IN WATER 250 ML IV SCH ×2 (12:28)
--- NOTE | 2021-08-18 12:31 | US ---
EXAMINATION TYPE: US venous doppler duplex LE DATE OF EXAM: 08/18/2021 12:09 PM COMPARISON: NONE CLINICAL HISTORY: 71-year-old male Leg swelling. SIDE PERFORMED: Bilateral TECHNIQUE: The lower extremity deep venous system is examined utilizing real time linear array sonog jeremie with graded compression, doppler sonography and color-flow sonography. VESSELS IMAGED: Common Femoral Vein Deep Femoral Vein Greater Saphenous Vein * Femoral Vein Popliteal Vein Small Saphenous Vein * Proximal Calf Veins (* superficial vessels) Dice Dealer notes: Limited due to edema and patient positioning. Right Leg: Color flow seen in all veins imaged. Vein coats appear thick. CFV and prox femoral vein a ppear to compress incompletely. Possible chronic internal echoes along wall. Unable to visualize calf veins at the ankle. Left Leg: Color flow seen in all veins imaged. Vein coats appear thick. CFV and popliteal vein appea r to compress incompletely. Possible chronic internal echoes along wall. Unable to visualize calf vei ns at the ankle. IMPRESSION: 1. No occlusive, acute lower extreme DVT seen on either side. Very limited exam due to soft tissue ed agustin and patient positioning. 2. However, there is incomplete compressibility on the right of the CFV and upper femoral vein. Incom plete compressibility on the left of the CFV and popliteal vein. There is also venous wall thickening and some peripheral echoes. Some underlying chronic mural-based DVT is suggested.
[2021-08-18 16:30] LABS: Estimated Average Glucose UNC
[2021-08-18 16:37] LABS: Glucose,Whole Blood 112 mg/dL (75-99)
[2021-08-18] MEDS: FORMOTEROL FUMARATE 20 MCG/2 ML NEBU INHALATION SCH (20:20)
[2021-08-18] MEDS: BUDESONIDE 1 MG/2 ML NEBU INHALATION SCH (20:31)
[2021-08-18 20:38] LABS: Glucose,Whole Blood 130 mg/dL (75-99)
[2021-08-18] MEDS: ENOXAPARIN 60 MG/0.6 ML SYRINGE SQ SCH (21:10)
--- NOTE | 2021-08-18 22:19 | P.CONS ---
History of Present Illness - Reason for Consult Consult date: 08/18/21 Leg wounds Requesting physician: Bubba E Sheet - Chief Complaint Weakness x days - History of Present Illness Patient is a 71-year-old male with past medical he significant for COPD hypertension hyperlipidemia recurrent aspiration pneumonia, a recent multiple admission at [facility] for aspiration pneumonia at the patient also have a multiple pressure ulcer patient was subsequently transferred to the local shelter patient has been brought to the ER from the shelter with concern for weakness and fatigue, patient was complaining of some shortness of breath mild chest but no vomiting patient on presentation to the hospital was afebrile and no fever have been recorded subsequently patient did have a white count of 17 which came down to 10.23 D-dimer was mildly elevated creatinine was normal procalcitonin was mildly elevated patient did have a chest x-ray small bilateral effusion with minimal subsegmental atelectasis left base patient did have a CT angiogram of the chest that was negative for PE did shows emphysematous changes and some evidence of fluid overload did not mention any consolidation, the patient was started on clindamycin the patient did have multiple pressure ulcers of the lower extremity infectious disease was consulted for further management of antibiotic most information has been reviewed from review the chart and talking nursing staff as the patient himself not a very good historian Review of Systems Positive point has been mentioned in the HPI rest of the systems are negative Past Medical History Past Medical History: COPD, Hyperlipidemia, Hypertension, Osteoarthritis (OA) Additional Past Medical History / Comment(s): Anemia, Metabolic Encaphalopathy, Acute kidney failure with tubular necrosis, Cachexia, Chronic non-pressure ulcer of back, Rhabdomylosis, History of Any Multi-Drug Resistant Organisms: None Reported Past Surgical History: No Surgical Hx Reported Additional Past Surgical History / Comment(s): colonoscopy Past Anesthesia/Blood Transfusion Reactions: No Reported Reaction Past Psychological History: No Psychological Hx Reported Smoking Status: Former smoker Past Alcohol Use History: Unable to Obtain Past Drug Use History: None Reported Medications and Allergies Home Medications Medication Instructions Recorded Confirmed Type Acetaminophen Tab [Tylenol] 650 mg PO Q4H PRN 08/17/21 08/17/21 History Albuterol Inhaler [Ventolin Hfa 2 puff INHALATION RT-Q6H PRN 08/17/21 08/17/21 History Inhaler] Budesonide [Pulmicort] 0.5 mg INHALATION RT-BID 08/17/21 08/17/21 History Levothyroxine Sodium [Synthroid] 50 mcg PO DAILY@0500 08/17/21 08/17/21 History amLODIPine [Norvasc] 10 mg PO DAILY 08/17/21 08/17/21 History Amiodarone [Cordarone] 200 mg PO BID tab 09/07/21 Rx Docusate [Colace] 100 mg PO BID PRN cap 09/07/21 Rx Famotidine [Pepcid] 20 mg PO DAILY tab 09/07/21 Rx Ipratropium-Albuterol Nebulize 3 ml INHALATION RT-Q4H PRN each 09/07/21 Rx [Duoneb 0.5 mg-3 mg/3 ml Soln] Metoprolol Tartrate [Lopressor] 100 mg PO BID tab 09/07/21 Rx predniSONE 10 mg PO DIRECTED #25 tab 09/07/21 Rx Allergies Allergy/AdvReac Type Severity Reaction Status Date / Time No Known Allergies Allergy Verified 08/17/21 14:21 Physical Exam Vitals: Vital Signs Temp Pulse Pulse Resp BP BP Pulse Ox 08/18/21 13:14 97.3 F L 77 19 134/68 97 08/18/21 08:00 97.7 F 138 H 22 110/65 99 08/18/21 04:26 138 H 28 H 102/64 100 08/18/21 03:57 146 H 32 H 100/61 100 08/18/21 03:23 147 H 30 H 95/63 99 08/18/21 01:01 97.2 F L 150 H 17 111/71 100 08/17/21 22:42 153 H 18 97/66 98 08/17/21 20:33 08/17/21 19:33 97.8 F 121 H 18 115/62 98 08/17/21 18:10 98.6 F 78 18 121/64 95 08/17/21 17:42 84 18 131/69 99 08/17/21 16:00 76 18 135/64 99 08/17/21 15:42 84 08/17/21 15:33 82 08/17/21 13:47 98.4 F 84 20 141/64 97 FiO2 08/18/21 13:14 08/18/21 08:00 08/18/21 04:26 08/18/21 03:57 08/18/21 03:23 08/18/21 01:01 08/17/21 22:42 08/17/21 20:33 3 08/17/21 19:33 08/17/21 18:10 08/17/21 17:42 08/17/21 16:00 08/17/21 15:42 08/17/21 15:33 08/17/21 13:47 Intake and Output 08/17/21 08/18/21 08/18/21 22:59 06:59 14:59 Intake Total 1.125 Output Total 200 600 Balance -200 -598.875 Intake: Intake, IV Titration 1.125 Amount Diltiazem 125 mg In 1.125 Sodium Chloride 0.9% 100 ml @ 7.5 MG/HR 7.5 mls/hr IV .[id number] [facility] Rx#: [id number] Output: Urine 200 600 Other: Voiding Method Indwelling Catheter Indwelling Catheter # Bowel Movements 0 Weight 54.431 kg GENERAL DESCRIPTION: Elderly male lying in bed, no distress. No tachypnea or accessory muscle of respiration use. HEENT: Shows Pallor , no scleral icterus. Oral mucous membrane is dry. No pharyngeal erythema or thrush NECK: Trachea central, no thyromegaly. LUNGS: Unlabored breathing. Decreased breath sound the bases No wheeze or crackle. HEART: S1, S2, regular rate and rhythm. No loud murmur ABDOMEN: Soft, no tenderness , guarding or rigidity, no organomegaly EXTREMITIES: No edema of feet. SKIN: Multiple wounds which are drying out with some slough tissue to the left thigh wound no surrounding redness. NEUROLOGICAL: The patient is awake, alert, oriented x3, mood and affect normal. Results CBC & Chem 7: 09/05/21 08:16 09/05/21 08:16 Labs: Abnormal Lab Results - Last 24 Hours (Table) 08/17/21 08/17/21 08/17/21 Range/Units 14:19 14:19 14:19 WBC 17.7 H (3.8-10.6) k/uL RBC 3.39 L (4.30-5.90) m/uL Hgb 10.0 L (13.0-17.5) gm/dL Hct 33.4 L (39.0-53.0) % MCHC 29.9 L (31.0-37.0) g/dL RDW 18.2 H (11.5-15.5) % MPV (9.5-12.2) fL Absolute Nucleated RBC (0.00-0.00) X 10*3/uL Immature Gran # (0.00-0.04) X 10*3/uL Neutrophils # 16.4 H (1.3-7.7) k/uL Lymphocytes # 0.6 L (1.0-4.8) k/uL Monocytes # (0.20-1.00) X 10*3/uL NRBC/100 WBC Diff (0.0-0.0) /100 WBCS APTT 19.5 L (22.0-30.0) sec D-Dimer (<0.60) mg/L FEU Potassium (3.5-5.5) mmol/L Chloride (98-107) mmol/L BUN (9-20) mg/dL BUN/Creatinine Ratio (12.00-20.00) Ratio Glucose (74-99) mg/dL POC Glucose (mg/dL) (75-99) mg/dL Calcium (8.7-10.3) mg/dL Total Protein (6.3-8.2) g/dL Albumin (3.5-5.0) g/dL Procalcitonin (0.02-0.09) ng/mL Urine Protein 1+ H (Negative) Urine Ketones Trace H (Negative) Urine Bacteria Rare H (None) /hpf 08/17/21 08/17/21 08/18/21 Range/Units 14:19 15:09 02:52 WBC (3.8-10.6) k/uL RBC (4.30-5.90) m/uL Hgb (13.0-17.5) gm/dL Hct (39.0-53.0) % MCHC (31.0-37.0) g/dL RDW (11.5-15.5) % MPV (9.5-12.2) fL Absolute Nucleated RBC (0.00-0.00) X 10*3/uL Immature Gran # (0.00-0.04) X 10*3/uL Neutrophils # (1.3-7.7) k/uL Lymphocytes # (1.0-4.8) k/uL Monocytes # (0.20-1.00) X 10*3/uL NRBC/100 WBC Diff (0.0-0.0) /100 WBCS APTT (22.0-30.0) sec D-Dimer (<0.60) mg/L FEU Potassium (3.5-5.5) mmol/L Chloride 110 H (98-107) mmol/L BUN 32 H (9-20) mg/dL BUN/Creatinine Ratio (12.00-20.00) Ratio Glucose 54 L (74-99) mg/dL POC Glucose (mg/dL) 57 L 191 H (75-99) mg/dL Calcium (8.7-10.3) mg/dL Total Protein 5.6 L (6.3-8.2) g/dL Albumin 2.9 L (3.5-5.0) g/dL Procalcitonin (0.02-0.09) ng/mL Urine Protein (Negative) Urine Ketones (Negative) Urine Bacteria (None) /hpf 08/18/21 08/18/21 08/18/21 Range/Units 06:02 06:04 06:04 WBC 10.23 H (3.8-10.6) k/uL RBC 2.92 L (4.30-5.90) m/uL Hgb 8.4 L (13.0-17.5) gm/dL Hct 28.2 L (39.0-53.0) % MCHC 29.8 L (31.0-37.0) g/dL RDW 21.4 H (11.5-15.5) % MPV 13.0 H (9.5-12.2) fL Absolute Nucleated RBC 0.02 H (0.00-0.00) X 10*3/uL Immature Gran # 0.05 H (0.00-0.04) X 10*3/uL Neutrophils # 9.69 H (1.3-7.7) k/uL Lymphocytes # 0.35 L (1.0-4.8) k/uL Monocytes # 0.07 L (0.20-1.00) X 10*3/uL NRBC/100 WBC Diff 0.2 H (0.0-0.0) /100 WBCS APTT (22.0-30.0) sec D-Dimer (<0.60) mg/L FEU Potassium (3.5-5.5) mmol/L Chloride (98-107) mmol/L BUN (9-20) mg/dL BUN/Creatinine Ratio (12.00-20.00) Ratio Glucose (74-99) mg/dL POC Glucose (mg/dL) 201 H (75-99) mg/dL Calcium (8.7-10.3) mg/dL Total Protein (6.3-8.2) g/dL Albumin (3.5-5.0) g/dL Procalcitonin 0.50 H (0.02-0.09) ng/mL Urine Protein (Negative) Urine Ketones (Negative) Urine Bacteria (None) /hpf 08/18/21 08/18/21 08/18/21 Range/Units 06:04 06:05 12:06 WBC (3.8-10.6) k/uL RBC (4.30-5.90) m/uL Hgb (13.0-17.5) gm/dL Hct (39.0-53.0) % MCHC (31.0-37.0) g/dL RDW (11.5-15.5) % MPV (9.5-12.2) fL Absolute Nucleated RBC (0.00-0.00) X 10*3/uL Immature Gran # (0.00-0.04) X 10*3/uL Neutrophils # (1.3-7.7) k/uL Lymphocytes # (1.0-4.8) k/uL Monocytes # (0.20-1.00) X 10*3/uL NRBC/100 WBC Diff (0.0-0.0) /100 WBCS APTT (22.0-30.0) sec D-Dimer 0.97 H (<0.60) mg/L FEU Potassium 5.6 H (3.5-5.5) mmol/L Chloride (98-107) mmol/L BUN 32.0 H (9-20) mg/dL BUN/Creatinine Ratio 32.00 H (12.00-20.00) Ratio Glucose 197 H (74-99) mg/dL POC Glucose (mg/dL) 154 H (75-99) mg/dL Calcium 8.6 L (8.7-10.3) mg/dL Total Protein (6.3-8.2) g/dL Albumin (3.5-5.0) g/dL Procalcitonin (0.02-0.09) ng/mL Urine Protein (Negative) Urine Ketones (Negative) Urine Bacteria (None) /hpf Assessment and Plan (1) Weakness Status: Acute Code(s): R53.1 - WEAKNESS SNOMED Code(s): 06100230 Plan: 1patient presented to hospital with increasing shortness of breath could be related to her underlying cardiac etiology there was evidence of bilateral effusion and no mention of any consolidation patient did have a elevated white count admission but has been more likely reactive with subsequently has nor malized and patient has no fever. 2patient did have multiple necrotic lesion to bilateral lower extremity but no evidence of any surrounding cellulitis clinically not behaving as infected wound. 3discontinue clindamycin. 4short course of oral Augmentin. 5Medihoney to the left thigh wound with a slough rest of the wound with a dry necrotic area to keep them dry and of the pressure. We will follow on clinical condition and cultures to further adjust medication if needed Thank you for this consultation will follow this patient along with you Time with Patient: Greater than 30
[2021-08-19] MEDS: CLINDAMYCIN 300 MG in DEXTROSE 5% IN WATER 50 ML IVPB SCH ×2 (00:06)
[2021-08-19] MEDS: methylPREDNISolone SOD SUCCI 125 MG/2 ML VIAL IV SCH ×5 (00:06→23:48)
[2021-08-19] MEDS ORDERED: AMIODARONE 200 MG TAB PO SCH (05:00)
[2021-08-19] MEDS: LEVOTHYROXINE 50 MCG TAB PO SCH ×2 (06:25→07:03)
[2021-08-19 06:32] LABS: Glucose,Whole Blood 164 mg/dL (75-99)
[2021-08-19] MEDS: INSULIN ASPART (NovoLOG) 100 UNIT/ML VIAL SQ SCH ×3 (06:38→18:28)
[2021-08-19] MEDS: SODIUM CHLORIDE 0.9% 1,000 ML IV SCH (07:58)
[2021-08-19] MEDS: AMIODARONE 450 MG in DEXTROSE 5% IN WATER 250 ML IV SCH ×4 (07:58→12:01)
--- NOTE | 2021-08-19 08:20 | XR ---
EXAMINATION TYPE: XR chest 1V portable DATE OF EXAM: 08/19/2021 CLINICAL HISTORY: Difficulty breathing progress study. TECHNIQUE: Single AP portable upright view of the chest is obtained. COMPARISON: Chest x-ray from 2 days earlier. CTA chest from yesterday. FINDINGS: Background chronic emphysematous change with more prominent small bilateral pleural effusi ons and bibasilar opacities. Cardiac silhouette size is stable and within normal limits with atherosc lerotic thoracic aorta. Osseous structures remain demineralized. IMPRESSION: Increasing small bilateral pleural effusions. Worsening bilateral lower lung infiltrates on background chronic emphysematous change.
[2021-08-19] MEDS ORDERED: AMOXIC-POT CLAV 875-125MG 1 EACH TAB PO SCH (09:00)
[2021-08-19] MEDS ORDERED: MORPHINE SULFATE 4 MG/ML SYRINGE ONE (09:26)
[2021-08-19] MEDS ORDERED: MIDAZOLAM 2 MG/2 ML VIAL ONE (09:26)
[2021-08-19] MEDS ORDERED: SUCCINYLCHOLINE CHLORIDE VIAL 200 MG/10 ML VIAL IV ONE (09:26)
[2021-08-19] MEDS ORDERED: CISATRACURIUM 2 MG/ML 5 ML VIAL IV ONE ×2 (09:28→09:29)
[2021-08-19] MEDS ORDERED: MORPHINE SULFATE 4 MG/ML SYRINGE IVP STA (09:28)
[2021-08-19] MEDS ORDERED: propofoL 100 ML IV ONE (09:29)
[2021-08-19] MEDS: BUDESONIDE 1 MG/2 ML NEBU INHALATION SCH ×2 (09:41→19:07)
[2021-08-19] MEDS: FORMOTEROL FUMARATE 20 MCG/2 ML NEBU INHALATION SCH ×2 (09:41→19:07)
[2021-08-19] MEDS ORDERED: NALOXONE 0.4 MG/ML 1 ML VIAL IV PRN (09:46)
[2021-08-19 09:49] LABS: Glucose,Whole Blood 142 mg/dL (75-99)
--- NOTE | 2021-08-19 10:25 | XR ---
EXAMINATION TYPE: XR chest 1V portable DATE OF EXAM: 08/19/2021 CLINICAL HISTORY: Central line placement. TECHNIQUE: Single AP portable semiupright view of the chest is obtained. COMPARISON: Chest x-ray from earlier today and older studies FINDINGS: New left subclavian central venous catheter terminates the cavoatrial junction. New Endotracheal tube terminates the superior aortic knob level approximately 3 to 4 cm above the josette. New Orogastric tube projects below diaphragm. Background chronic emphysematous change with increasing left lung opacity and persistence multiple ti ny bilateral pleural effusions. Somewhat improved right basilar opacity. Cardiac silhouette size is s table and within normal limits with atherosclerotic thoracic aorta. Osseous structures remain deminer alized. Patient more rotated to the left on current study. IMPRESSION: 1. No pneumothorax after central line placement. 2. Satisfactory positioning of endotracheal and orogastric tubes. 3. Worsening left lung edema and/or infiltrates. Some improvement in small bilateral pleural effusion s. Improved aeration right lung base.
[2021-08-19 10:42] LABS: ABG Base Excess -3.5 mmol/L; ABG HCO3 25 mmol/L (21-25); ABG PCO2 65 mmHg (35-45); ABG PO2 124 mmHg (83-108); ABG TCO2 27 mmol/L (19-24); Allen Test Performed? Yes
[2021-08-19 10:44] LABS: ABG PH 7.19 (7.35-7.45)
[2021-08-19 11:16] LABS: Albumin 2.8 g/dL (3.5-5.0); Bilirubin,Unconjugated 0.1 mg/dL (0.0-1.1); Calcium 7.9 mg/dL (8.4-10.2); Potassium 4.9 mmol/L (3.5-5.1); Total Bilirubin 0.1 mg/dL (0.2-1.3); Total Protein 5.3 g/dL (6.3-8.2)
[2021-08-19 11:20] LABS: Anisocytosis Slight; Basophils % (A) 0 %; Eosinophils % (A) 0 %; HCT 28.8 % (39.0-53.0); HGB 8.6 gm/dL (13.0-17.5); Hypochromasia Marked; Lymphocytes # (A) 0.3 k/uL (1.0-4.8); Lymphocytes % (A) 3 %; MCH 30.2 pg (25.0-35.0); MCHC 29.9 g/dL (31.0-37.0); MCV 100.9 fL (80.0-100.0); Macrocytosis Moderate; Mean Platelet Volume 10.2; Monocytes # (A) 0.3 k/uL (0-1.0); Monocytes % (A) 2 %; Neutrophils % (A) 95 %; Platelet Count 256 k/uL (150-450); RBC 2.86 m/uL (4.30-5.90); RDW 18.5 % (11.5-15.5); WBC 11.6 k/uL (3.8-10.6)
[2021-08-19] MEDS ORDERED: SODIUM CHLORIDE 0.9% 1,000 ML IV ONE (11:30)
--- NOTE | 2021-08-19 11:30 | PCN ---
PROCEDURE NOTE PROCEDURE: Right radial art line. PREOP DIAGNOSES: Frequent blood draws and blood gas monitoring, hypotension and sepsis. POSTOP DIAGNOSES: Frequent blood draws and blood gas monitoring, hypotension and sepsis. OPERATORS: Dr. Orantes and Dr. Ruiz. There was informed consent. ARTERIAL LINE PLACEMENT: Indications: Hemodynamic monitoring. A time-out was completed verifying correct patient, procedure, site, positioning, and implant(s) or special equipment if applicable. Shad's test was performed to ensure adequate perfusion. The patient's right wrist was prepped and draped in sterile fashion. 1% Lidocaine was used to anesthetize the area. An 18G Arrow arterial line was introduced into the radial artery. The catheter was threaded over the guide wire and the needle was removed with appropriate pulsatile blood return. Blood loss was minimal. The catheter was then sutured in place to the skin and a sterile dressing applied. Perfusion to the extremity distal to the point of catheter insertion was checked and found to be adequate. The patient tolerated the procedure well and there were no complications. There was good waveform and blood pressure reading. The catheter was sutured in place. A sterile dressing was applied by the nurse. There was no immediate complication. MMODL / IJN: [id number] /
--- NOTE | 2021-08-19 11:38 | PCN ---
PROCEDURE NOTE PROCEDURE: Left subclavian triple-lumen catheter. PREOP DIAGNOSIS: Administration of fluids, pressors, sepsis and hypotension. POSTOP DIAGNOSIS: Administration of fluids, pressors, sepsis and hypotension. OPERATORS: Dr. Orantes and Dr. Ruiz There was informed consent and universal timeout. TRIPLE LUMEN CATHETER PLACEMENT: Indication: Hemodynamic monitoring/Intravenous access. A time-out was completed verifying correct patient, procedure, site, positioning, and implant(s) or special equipment if applicable. The patient was placed in a dependent position appropriate for triple lumen catheter placement based on the vein to be cannulated. The patient's left shoulder was prepped and draped in sterile fashion. 1% Lidocaine was used to anesthetize the surrounding skin area. A triple lumen 9F Cordis catheter was introduced into the subclavian vein using Seldinger technique. The catheter was threaded smoothly over the guide wire and appropriate blood return was obtained. Each lumen of the catheter was evacuated of air and flushed with sterile saline. The catheter was then sutured in place to the skin and a sterile dressing applied. Perfusion to the extremity distal to the point of catheter insertion was checked and found to be adequate. We used the left subclavian site. There was good blood return from all 3 ports. The patient tolerated the procedure well. The catheter was sutured in place. Sterile dressing was applied by the nurse. There was no immediate complication. The tip of the catheter was seen at the junction of the right atrium and superior vena cava. There was no pneumothorax. MMODL / IJN: [id number] /
--- NOTE | 2021-08-19 11:38 | PCN ---
PROCEDURE NOTE PROCEDURE: Emergent intubation. PREOP DIAGNOSES: Impending respiratory failure, hypoxemic hypoxemia, pneumonia. POSTOP DIAGNOSES: Impending respiratory failure, hypoxemic hypoxemia, pneumonia. OPERATORS: Dr. Orantes and Dr. Ruiz. There was informed consent and universal timeout. DESCRIPTION OF PROCEDURE: We used a #8 endotracheal tube. The GlideScope was used to assist in the intubation. Once the patient was properly sedated with 2 mg of Versed, 4 mg of morphine, the patient had the endotracheal tube inserted through the glottic opening into the trachea. It was done under direct visualization. There was good color change on the CO2 monitor. There was good bilateral breath sounds. A #8 endotracheal tube was used. There was no immediate complication. Tube position was confirmed by x-ray. Again the patient tolerated the procedure well without any difficulty. MMODL / IJN: [id number] /
--- NOTE | 2021-08-19 11:48 | P.PN ---
Subjective Progress Note Date: 08/19/21 71-year-old male patient with known history of severe end-stage COPD, with a baseline FEV1 of 0.67 L or 25% predicted as November 2020 PFT, on home oxygen patient usually wears 3 L of oxygen on a regular basis, ex-smoker, chronic dyspnea, hypertension, hyperlipidemia, osteoarthritis, cachexia, chronic n onhealing ulcers involving bilateral feet. Patient was recently required hospitalization in the last several weeks at the [facility] when he required mechanical ventilator support. Patient follows with Dr. Hall in the pulmonary clinic. On 08/17/2021 patient presents to the emergency department from a longterm because of weakness and fatigue. Patient was also complaining of some chest discomfort in the morning, and shortness of breath. Denied any recent fever or chills. No worsening cough wheezing or phlegm production. No hemoptysis. Chest x-ray showed small bilateral pleural effusions with minimal subsegmental atelectasis at the left base. EKG showed sinus rhythm, with minimal ST depression in inferior leads, and T-wave inversion in aVL and LVH. Laboratory evaluation showed elevated white count of 17.7, hemoglobin of 10.0, platelet count of 285, d-dimer was mildly elevated to 0.97, sodium is 144, potassium is 5.1, BUN of 32, creatinine 0.69, 2 sets of troponins were negative at 0.020, less than 0.012, pro-calcitonin level was elevated to 0.50, TSH was within normal limits, LFTs were within normal limits, plasma lactic acid was 1.3 urinalysis without sign of infection. CT angiogram of the chest showed no evidence of acute pulmonary embolism, and moderate emphysematous change with small size right greater than left pleural effusions. There was focal scarring versus spiculated nodule in the posterior right upper lobe which is new from 2014 study with recommendation of follow-up PET scan. Patient is currently on 3 L of oxygen pulse ox is 99%, he is very short of breath at rest, but appears to be in no acute distress, he is able to answer some simple questions, but he does have conversational dyspnea as well. Afebrile, he is tachycardic, cardiology has been consulted for SVT. Patient is on amiodarone infusion at 1 mg/m for rate control, he is on empiric antibiotics and breathing treatments and IV steroids. The patient is seen today 08/19/2021 in follow-up on the selective care unit. Upon arrival the patient was quite obtunded and unarousable and breathing shallow. He was immediately transferred to the intensive care unit requiring emergent intubation and placed on the mechanical ventilator. Initial settings included assist control mode with a rate of 20, tidal volume 350, FiO2 100% and a PEEP of 5. Left subclavian triple-lumen catheter place. Right radial arterial line placed. Arterial blood gases revealed a PaO2 of 124, pCO2 of 65 and a pH of 7.19. His respiratory rate was increased to 28. PEEP increased to 8. Plans to titrate down the FiO2. White count 11.6. Hemoglobin 8.6. Platelets 256. Sodium 143. Potassium 4.9. Chloride 113. BUN 44. Creatinine 1.42. Glucose 134. AST 42. ALT 195. Albumin 2.8. He is currently sedated on propofol at 50 mcg/kg/m. To be given 1-2 L of fluid resuscitation. Chest x-ray reveals no evidence of pneumothorax, satisfactory positioning of the endotracheal and orogastric tubes. There is worsening left lung edema/infiltrates. Improved aeration of the right lung base. Augmentin discontinued. Initiated on Zosyn. Pro-calcitonin pending. Culture revealing no growth to date. He was initially in atrial fibrillation requiring amiodarone. He is continued on bronchodilators, IV Solu-Medrol. He remains in a positive balance. Objective - Vital Signs Vital signs: Vital Signs Temp 97.7 F 08/19/21 00:00 Pulse 74 08/19/21 09:00 Resp 18 08/19/21 04:00 BP 147/64 08/19/21 04:00 Pulse Ox 75 L 08/19/21 09:00 FiO2 90 08/19/21 10:56 Intake & Output 08/18/21 08/19/21 08/19/21 18:59 06:59 18:59 Intake Total 1049.6 1200 Output Total 325 610 Balance 724.6 590 Weight 54.3 kg 54.3 kg Intake: Intake, IV Titration 1049.6 1200 Amount Amiodarone 360 mg In 133.2 Dextrose 5% in Water 200 ml @ 1 MG/MIN 33.333 mls/ hr IV .Q6H ONE Rx#: [id number] Amiodarone 450 mg In 66.4 Dextrose 5% in Water 250 ml @ 0.5 MG/MIN 16.667 mls/hr IV .Q15H GRACIE Rx#: [id number] Clindamycin 300 mg In 50 Dextrose 5% in Water 50 ml @ 50 mls/hr IVPB Q8HR GRACIE Rx#:[id number] Sodium Chloride 0.9% 1, 800 1200 000 ml @ 100 mls/hr IV . Q10H GRACIE Rx#:[id number] Output: Urine 325 610 Other: Voiding Method Indwelling Catheter Indwelling Catheter - Exam GENERAL EXAM: Obtunded, shallow respirations in a cachectic-looking 71-year-old male, on 2 L of oxygen pulse ox is 75%. HEAD: Normocephalic/atraumatic. EYES: Normal reaction of pupils, equal size. Conjunctiva pink, sclera white. NOSE: Clear with pink turbinates. THROAT: No erythema or exudates. NECK: No masses, no JVD, no thyroid enlargement, no adenopathy. CHEST: No chest wall deformity. Symmetrical expansion. LUNGS: Equal air entry with diffuse crackles, diminished breath sounds CVS: Regular rate and rhythm, normal S1 and S2, no gallops, no murmurs, no rubs ABDOMEN: Soft, nontender. No hepatosplenomegaly, normal bowel sounds, no guarding or rigidity. EXTREMITIES: No clubbing, no edema, no cyanosis, 2+ pulses and upper and lower extremities. MUSCULOSKELETAL: Muscle strength and tone normal. SPINE: No scoliosis or deformity SKIN: No rashes CENTRAL NERVOUS SYSTEM: Obtunded, unarousable Tone is normal in all 4 extremities. PSYCHIATRIC: Unable to assess - Labs CBC & Chem 7: 08/19/21 10:37 08/19/21 10:37 Labs: Abnormal Lab Results - Last 24 Hours (Table) 08/18/21 08/18/21 08/18/21 Range/Units 12:06 16:34 20:25 WBC (3.8-10.6) k/uL RBC (4.30-5.90) m/uL Hgb (13.0-17.5) gm/dL Hct (39.0-53.0) % MCV (80.0-100.0) fL MCHC (31.0-37.0) g/dL RDW (11.5-15.5) % Neutrophils # (1.3-7.7) k/uL Lymphocytes # (1.0-4.8) k/uL ABG pH (7.35-7.45) ABG pCO2 (35-45) mmHg ABG pO2 (83-108) mmHg ABG Total CO2 (19-24) mmol/L ABG O2 Saturation (94-97) % Chloride (98-107) mmol/L BUN (9-20) mg/dL Creatinine (0.66-1.25) mg/dL Glucose (74-99) mg/dL POC Glucose (mg/dL) 154 H 112 H 130 H (75-99) mg/dL Calcium (8.4-10.2) mg/dL Total Bilirubin (0.2-1.3) mg/dL ALT (4-49) U/L Total Protein (6.3-8.2) g/dL Albumin (3.5-5.0) g/dL 08/19/21 08/19/21 08/19/21 Range/Units 06:28 09:48 10:37 WBC 11.6 H (3.8-10.6) k/uL RBC 2.86 L (4.30-5.90) m/uL Hgb 8.6 L (13.0-17.5) gm/dL Hct 28.8 L (39.0-53.0) % MCV 100.9 H (80.0-100.0) fL MCHC 29.9 L (31.0-37.0) g/dL RDW 18.5 H (11.5-15.5) % Neutrophils # 11.0 H (1.3-7.7) k/uL Lymphocytes # 0.3 L (1.0-4.8) k/uL ABG pH (7.35-7.45) ABG pCO2 (35-45) mmHg ABG pO2 (83-108) mmHg ABG Total CO2 (19-24) mmol/L ABG O2 Saturation (94-97) % Chloride (98-107) mmol/L BUN (9-20) mg/dL Creatinine (0.66-1.25) mg/dL Glucose (74-99) mg/dL POC Glucose (mg/dL) 164 H 142 H (75-99) mg/dL Calcium (8.4-10.2) mg/dL Total Bilirubin (0.2-1.3) mg/dL ALT (4-49) U/L Total Protein (6.3-8.2) g/dL Albumin (3.5-5.0) g/dL 08/19/21 08/19/21 Range/Units 10:37 10:38 WBC (3.8-10.6) k/uL RBC (4.30-5.90) m/uL Hgb (13.0-17.5) gm/dL Hct (39.0-53.0) % MCV (80.0-100.0) fL MCHC (31.0-37.0) g/dL RDW (11.5-15.5) % Neutrophils # (1.3-7.7) k/uL Lymphocytes # (1.0-4.8) k/uL ABG pH 7.19 L* (7.35-7.45) ABG pCO2 65 H (35-45) mmHg ABG pO2 124 H (83-108) mmHg ABG Total CO2 27 H (19-24) mmol/L ABG O2 Saturation 99.0 H (94-97) % Chloride 113 H (98-107) mmol/L BUN 44 H (9-20) mg/dL Creatinine 1.42 H (0.66-1.25) mg/dL Glucose 134 H (74-99) mg/dL POC Glucose (mg/dL) (75-99) mg/dL Calcium 7.9 L (8.4-10.2) mg/dL Total Bilirubin 0.1 L (0.2-1.3) mg/dL ALT 195 H (4-49) U/L Total Protein 5.3 L (6.3-8.2) g/dL Albumin 2.8 L (3.5-5.0) g/dL Microbiology - Last 24 Hours (Table) 08/18/21 06:04 Blood Culture - Preliminary Blood No Growth after 24 hours Assessment and Plan Assessment: 1 Acute exacerbation of COPD with acute hypoxemic respiratory failure requiring intubation mechanical ventilation on 08/19/2021 2 A flutter with RVR, currently on amiodarone 3 History of severe end-stage COPD with baseline FEV1 of 25% of predicted 4 Chronic hypoxic respiratory failure related to the above 5 Former smoker 6 Nonhealing bilateral lower extremity ulcers 7 Elevated pro-calcitonin level, rule out possibility of infection, currently on Zosyn 8 Mildly elevated d-dimer, with no CT evidence of pulmonary embolism 9 Focal scarring versus spiculated nodule in the right upper lobe, will need outpatient follow-up, and possible PET scan 10 Chronic cachexia 11 Hypertension 12 Hyperlipidemia 13 Hypothyroidism 14 Osteoarthritis Plan: The patient was seen and evaluated Emergently intubated this morning Left subclavian triple-lumen catheter placed Right radial arterial line placed Nasogastric tube inserted, initiate tube feedings Chest x-ray, ABGs, labs and medications reviewed Increased respiratory rate 28, increase PEEP to 8 Titrate the FiO2 as tolerated Sedated on propofol currently at 50 mics per kilogram per minute We'll give normal saline liter bolus Discontinue Augmentin, initiate Zosyn Progress calcitonin pending DuoNeb inhalations every 4 hours Continue Pulmicort and Perforomist inhalations, IV Solu-Medrol Dilaudid for pain control Overall prognosis remains quite guarded Follow-up chest x-ray, ABGs and labs in the a.m. We will continue to follow and make further recommendations based on his clinical status I have personally seen and examined the patient, performed the documentation and the assessment and plan as written. Number of minutes spent on the visit: 15. Not including procedures.
[2021-08-19 11:59] LABS: Glucose,Whole Blood 121 mg/dL (75-99)
[2021-08-19] MEDS: IPRATROPIUM-ALBUTEROL 3 ML NEB INHALATION SCH ×4 (12:10→23:56)
[2021-08-19] MEDS: HYDROmorphone 1 MG/ML 1 ML SYRINGE IVP PRN (12:21)
[2021-08-19] MEDS: FAMOTIDINE 20 MG TAB PO SCH (12:22)
[2021-08-19] MEDS: ENOXAPARIN 60 MG/0.6 ML SYRINGE SQ SCH ×2 (13:15→20:49)
[2021-08-19] MEDS: METOPROLOL TARTRATE 25 MG TAB PO SCH ×2 (13:15→20:49)
--- NOTE | 2021-08-19 14:38 | CDI ---
Documentation Clarification Form Date: 08/19/2021 02:03:39 PM From: Laxmi Schmitt RN CCDS Admit Date: 08/17/2021 04:55:00 PM Patient Name: Dani Jimenes Visit Number: [id number] Discharge Date: ATTENTION: The Clinical Documentation Specialists (CDI) and [facility] Coding Staff appreciate your assistance in clarifying documentation. Please respond to the clarification below the line at the bottom and electronically sign. The CDI & [facility] Coding staff will review the response and follow-up if needed. Please note: Queries are made part of the Legal Health Record. If you have any questions, please contact the author of this message via ITS. Dr. Edward Mitchell A Right heel, unstageable pressure ulcer is documented 08/18, Nursing pressure injury assessment. Additional clarification regarding the stage of the pressure ulcer is requested. History/Risk Factors: 71-year-old male presents to the ED via EMS from [facility] for weakness, shortness of breath, lethargy over 2-3 days and confusion. Medical history: COPD, HTN and Anemia. H&P, 08/19. Clinical Indicators: Location: Right heel Wound description: Unstageable, with eschar, dry and intact. Treatment: Optifoam gentle liquitrap, turn 2q hours, absorbant underpad; 08/19 Tube feeding Please clarify the stage of pressure ulcer Right heel, if known: [ x] Unstageable Pressure ulcer right heel [ ] Other condition, please specify [ ] Unable to determine Clinical Definitions: Stage 1 Pressure Ulcer: intact skin, non-blanching redness of local area Stage 2 Pressure Ulcer: Partial thickness, loss of dermis, pink wound bed Stage 3 Pressure Ulcer: Full thickness tissue loss Stage 4 Pressure Ulcer: Full thickness tissue loss with exposed bone, tendon, or muscle. Unstageable pressure ulcer: Full thickness tissue loss in which the base of the ulcer is covered by slough (yellow, le, riggs, green or brown) and/or eschar (le, brown or black) in the wound bed. (Template Last Revised: May 2020) MANUEL
--- NOTE | 2021-08-19 14:53 | CDI ---
Documentation Clarification Form Date: 08/19/2021 02:35:02 PM From: Laxmi Schmitt RN CCDS Admit Date: 08/17/2021 04:55:00 PM Patient Name: Dani Jimenes Visit Number: [id number] Discharge Date: ATTENTION: The Clinical Documentation Specialists (CDI) and [facility] Coding Staff appreciate your assistance in clarifying documentation. Please respond to the clarification below the line at the bottom and electronically sign. The CDI & [facility] Coding staff will review the response and follow-up if needed. Please note: Queries are made part of the Legal Health Record. If you have any questions, please contact the author of this message via ITS. Dr. Wagner Medrano A Bilateral buttock, stage I pressure ulcers is documented 08/18, Nursing pressure injury assessment. Based on this information and the findings below, is there an additional diagnosis that is clinically appropriate for this patient? History/Risk Factors: 71-year-old male presents to the ED via EMS from [facility] for weakness, shortness of breath, lethargy over 2-3 days and confusion. Medical history: COPD, HTN and Anemia. H&P, 08/19. Clinical Indicators: Location: Bilateral Buttock Wound description: Stage 1; open to air, no drainage. Treatment: Turn 2q hours, absorbant underpad; 08/19 Tube feeding. Is there an additional diagnosis that is clinically appropriate for this patient? [ x ] Bilateral buttock Pressure Ulcers Stage 1 [ ] Other condition, please specify [ ] Unable to determine Clinical Definitions: Stage 1 Pressure Ulcer: intact skin, non-blanching redness of local area Stage 2 Pressure Ulcer: Partial thickness, loss of dermis, pink wound bed Stage 3 Pressure Ulcer: Full thickness tissue loss Stage 4 Pressure Ulcer: Full thickness tissue loss with exposed bone, tendon, or muscle. Unstageable pressure ulcer: Full thickness tissue loss in which the base of the ulcer is covered by slough (yellow, le, riggs, green or brown) and/or eschar (le, brown or black) in the wound bed. (Template Last Revised: May 2020) MANUEL
--- NOTE | 2021-08-19 14:59 | CDI ---
Documentation Clarification Form Date: 08/19/2021 02:35:02 PM From: Laxmi Schmitt RN CCDS Admit Date: 08/17/2021 04:55:00 PM Patient Name: Dani Jimenes Visit Number: [id number] Discharge Date: ATTENTION: The Clinical Documentation Specialists (CDI) and [facility] Coding Staff appreciate your assistance in clarifying documentation. Please respond to the clarification below the line at the bottom and electronically sign. The CDI & [facility] Coding staff will review the response and follow-up if needed. Please note: Queries are made part of the Legal Health Record. If you have any questions, please contact the author of this message via ITS. Dr. Wagner Medrano A Right willis, unstageable pressure ulcer is documented 08/18, Nursing pressure injury assessment. Based on this information and the findings below, is there an additional diagnosis that is clinically appropriate for this patient? History/Risk Factors: 71-year-old male presents to the ED via EMS from [facility] for weakness, shortness of breath, lethargy over 2-3 days and confusion. Medical history: COPD, HTN and Anemia. H&P, 08/19. Clinical Indicators: Location: Right willis Wound description: Unstageable, Escar, no drainage Treatment: Optifoam gentle liquitrap, turn 2q hours, absorbant underpad; 08/19 Tube feeding. Is there an additional diagnosis that is clinically appropriate for this patient? [ x ] Right willis Pressure Ulcer unstageable [ ] Other condition, please specify [ ] Unable to determine Clinical Definitions: Stage 1 Pressure Ulcer: intact skin, non-blanching redness of local area Stage 2 Pressure Ulcer: Partial thickness, loss of dermis, pink wound bed Stage 3 Pressure Ulcer: Full thickness tissue loss Stage 4 Pressure Ulcer: Full thickness tissue loss with exposed bone, tendon, or muscle. Unstageable pressure ulcer: Full thickness tissue loss in which the base of the ulcer is covered by slough (yellow, le, riggs, green or brown) and/or eschar (le, brown or black) in the wound bed. (Template Last Revised: May 2020) MANUEL
--- NOTE | 2021-08-19 15:09 | CDI ---
Documentation Clarification Form Date: 08/19/2021 02:35:02 PM From: Laxmi Schmitt RN CCDS Admit Date: 08/17/2021 04:55:00 PM Patient Name: Dani Jimenes Visit Number: [id number] Discharge Date: ATTENTION: The Clinical Documentation Specialists (CDI) and [facility] Coding Staff appreciate your assistance in clarifying documentation. Please respond to the clarification below the line at the bottom and electronically sign. The CDI & [facility] Coding staff will review the response and follow-up if needed. Please note: Queries are made part of the Legal Health Record. If you have any questions, please contact the author of this message via ITS. Dr. Edward Mitchell A Right great toe, unstageable pressure ulcer is documented 08/18, Nursing pressure injury assessment. Based on this information and the findings below, is there an additional diagnosis that is clinically appropriate for this patient? History/Risk Factors: 71-year-old male presents to the ED via EMS from [facility] for weakness, shortness of breath, lethargy over 2-3 days and confusion. Medical history: COPD, HTN and Anemia. H&P, 08/19. Clinical Indicators: Location: Right great toe Wound description: Unstageable, no drainage dry and intact Treatment: Optifoam gentle liquitrap, turn 2q hours, absorbant underpad; 08/19 Tube feeding. Is there an additional diagnosis that is clinically appropriate for this patient? [ x ] Right great toe Pressure Ulcer unstageable [ ] Other condition, please specify [ ] Unable to determine Clinical Definitions: Stage 1 Pressure Ulcer: intact skin, non-blanching redness of local area Stage 2 Pressure Ulcer: Partial thickness, loss of dermis, pink wound bed Stage 3 Pressure Ulcer: Full thickness tissue loss Stage 4 Pressure Ulcer: Full thickness tissue loss with exposed bone, tendon, or muscle. Unstageable pressure ulcer: Full thickness tissue loss in which the base of the ulcer is covered by slough (yellow, le, riggs, green or brown) and/or eschar (le, brown or black) in the wound bed. (Template Last Revised: May 2020) MANUEL
--- NOTE | 2021-08-19 15:18 | CDI ---
Documentation Clarification Form Date: 08/19/2021 02:35:02 PM From: Laxmi Schmitt RN CCDS Admit Date: 08/17/2021 04:55:00 PM Patient Name: Dani Jimenes Visit Number: [id number] Discharge Date: ATTENTION: The Clinical Documentation Specialists (CDI) and [facility] Coding Staff appreciate your assistance in clarifying documentation. Please respond to the clarification below the line at the bottom and electronically sign. The CDI & [facility] Coding staff will review the response and follow-up if needed. Please note: Queries are made part of the Legal Health Record. If you have any questions, please contact the author of this message via ITS. Dr. Wagner Medrano A Left heel, unstageable pressure ulcer is documented 08/18, Nursing pressure injury assessment. Based on this information and the findings below, is there an additional diagnosis that is clinically appropriate for this patient? History/Risk Factors: 71-year-old male presents to the ED via EMS from [facility] for weakness, shortness of breath, lethargy over 2-3 days and confusion. Medical history: COPD, HTN and Anemia. H&P, 08/19. Clinical Indicators: Location: Left heel Wound description: No drainage, dry and intact Treatment: Optifoam gentle liquitrap, turn 2q hours, absorbant underpad; 08/19 Tube feeding. Is there an additional diagnosis that is clinically appropriate for this patient? [ x ] Left heel Pressure Ulcer unstageable [ ] Other condition, please specify [ ] Unable to determine Clinical Definitions: Stage 1 Pressure Ulcer: intact skin, non-blanching redness of local area Stage 2 Pressure Ulcer: Partial thickness, loss of dermis, pink wound bed Stage 3 Pressure Ulcer: Full thickness tissue loss Stage 4 Pressure Ulcer: Full thickness tissue loss with exposed bone, tendon, or muscle. Unstageable pressure ulcer: Full thickness tissue loss in which the base of the ulcer is covered by slough (yellow, le, riggs, green or brown) and/or eschar (le, brown or black) in the wound bed. (Template Last Revised: May 2020) MANUEL
--- NOTE | 2021-08-19 17:08 | PN ---
PROGRESS NOTE This gentleman was in atrial flutter with a rapid rate and he also has history of severe COPD, was recently hospitalized at [facility] and also intubated. This patient apparently was quite unresponsive this morning and was initially in respiratory distress. He was then intubated and transferred to the ICU. He has end-stage severe COPD. He is back in sinus rhythm from atrial fibrillation. Overall prognosis is poor. He is under the care of critical care physician Dr. Orantes. I am recommending that we leave him on amiodarone IV 0.5 mg drip for the next 24 hours, then switch him to oral amiodarone or through the NG tube. Prognosis remains poor overall. Further management by Dr. Orantes. MMODL / PINKYN: [id number] /
--- NOTE | 2021-08-19 17:59 | P.PN ---
Subjective This is a pleasant 71 years old male with past medical history of COPD, Hyperlipidemia, Hypertension, Osteoarthritis , Metabolic Encaphalopathy, Acute kidney failure with tubular necrosis, Cachexia, Chronic non-pressure ulcer of back, Rhabdomylosis was sent from [facility] with increased weakness and lethargy over the last 2-3days Patient is poor historian but as per staff with his he has been a residential for the last 1-2 months and his been confused. pt looks cachectic and very frail, he is oriented to time ,place and person , but has no denture, his voice is muffled because of that he is been complaining from dyspnea and chest pain which is mild in the middle nonradiating and associated with very little cough. He says his shortness of breath was worse over the last 1 day and a half. Denies any abdominal pain or vomiting or diarrhea but he has low appetite. He denies any choking or swallow problem but he has no denture so we'll check for swallow evaluation Patient looks tachypneic with bilateral chest with some limited air entry but no ricardo wheezing. Patient states that he quit smoking about 10 years ago, used to smoke for more than 10 years. No alcohol or illicit drugs. He has multiple pressure ulcers he has one large pressure ulcers on the right leg laterally with drying scab Or any dressing . Also has multiple pressure ulcers with black eschar on both heels and left foot. The surrounding skin looks intact with no redness or swelling. On admission he was slightly tachypneic on 20, afebrile and heart rate was 84 and blood pressure 141/64, however overnight his blood pressure dropped with sys tolic 90s to 100, currently his blood pressure 104/68, also became tachycardic with heart rate 04/17/2049. He was saturating 9920% on 2-3 L oxygen via nasal cannula. He is mildly hypothermic at 97.2 His WBC is elevated at 17.7. Hemoglobin is 10.0. Platelet count 258. INR 0.9. BUN is 32 and creatinine 0.9. Troponin is 0.02 and less than 0.01. Glucose was on the low side 57 on admission and currently is 201. Urinalysis showed 1+ protein with no evidence of infection. Patient started on steroids and got a breathing treatment, IV fluids and started on amiodarone drips and Lovenox in the emergency room. D-dimer was elevated, therefore CTA of the chest was done which showed negative for pulmonary embolism, emphysematous changes with small pleural effusion. Also there is focal scattered versus speculated nodule in the right upper lobe we ordered stat CT of the brain and CT of the chest to rule out pulmonary embolism given his hypotension, tachycardia and tachypnea with elevated d-dimer. Also with mild hypoxia suspected. However patient confused per staff when he came in and could not be started on heparin drip before we rule out intracranial bleed before CT of the brain is also ordered with CT of the chest. Both tests came back negative 08/19/2021 Patient today during morning rounds found obtunded and responsive and unarousable with impending respiratory failure and he was transferred to the intensive care unit he got intubated and placed on mechanical ventilation with pulmonary/critical care team following closely and held with and management. His WBCs 11.6, hemoglobin 8.6, creatinine 1.4. chest x-ray sewn bilateral worsening infiltrates especially in the lower zones mood versus worsening infection His continued counseling atrial 60 mg, antibiotic form of Zosyn and amiodarone drip for developing A. fib and RVR. High-dose tenderness on hold review of system: N/a Active Medications Generic Name Dose Route Start Last Admin Trade Name Freq PRN Reason Stop Dose Admin Acetaminophen 650 mg 08/17/21 17:59 Acetaminophen Tab 325 Mg Tab PO Q4H PRN Pain or Fever > 100.5 Albuterol/Ipratropium 3 ml 08/17/21 16:55 Ipratropium-Albuterol 3 Ml Neb INHALATION RT-Q4H PRN Shortness Of Breath Or Wheezing Albuterol/Ipratropium 3 ml 08/19/21 12:00 08/19/21 16:10 Ipratropium-Albuterol 3 Ml Neb INHALATION 3 ml RT-Q4H [facility] Administration Amiodarone HCl 200 mg 08/20/21 09:00 Amiodarone 200 Mg Tab PO BID [facility] Budesonide 1 mg 08/18/21 20:00 08/19/21 09:41 Budesonide 1 Mg/2 Ml Nebu INHALATION Not Given RT-BID [facility] Chlorhexidine Gluconate 15 ml 08/19/21 21:00 Chlorhexidine Gluconate 15 Ml Cup MUCOUS MEM BID [facility] Enoxaparin Sodium 50 mg 08/18/21 21:00 08/19/21 13:15 Enoxaparin 60 Mg/0.6 Ml Syringe SQ 50 mg Q12HR [facility] Administration Famotidine 20 mg 08/20/21 09:00 Famotidine 20 Mg Tab PO DAILY [facility] Formoterol Fumarate 20 mcg 08/18/21 20:00 08/19/21 09:41 Formoterol Fumarate 20 Mcg/2 Ml Nebu INHALATION Not Given RT-BID [facility] Hydromorphone HCl 1 mg 08/19/21 11:30 08/19/21 12:21 Hydromorphone 1 Mg/Ml 1 Ml Syringe IVP 1 mg Q2HR PRN Administration Pain Propofol 1,000 mg/ IV Solution 100 mls @ 1.629 mls/hr 08/19/21 09:45 08/19/21 16:50 IV 45 mcg/kg/min .Q24H [facility] 14.661 mls/hr Titration Protocol 5 MCG/KG/MIN Piperacillin Sod/Tazobactam 100 mls @ 25 mls/hr 08/19/21 16:00 Sod 3.375 gm/ Sodium Chloride IVPB Q8HR [facility] Protocol Amiodarone HCl 450 mg/ 250 mls @ 16.667 mls/hr 08/19/21 11:45 08/19/21 12:01 Dextrose/Water IV 08/20/21 05:44 0.5 mg/min .Q15H [facility] 16.667 mls/hr Administration Protocol 0.5 MG/MIN Insulin Aspart 0 unit 08/18/21 07:30 08/19/21 12:09 Insulin Aspart (Novolog) 100 Unit/Ml Vial SQ Not Given ACHS [facility] Protocol Levothyroxine Sodium 50 mcg 08/18/21 05:00 08/19/21 07:03 Levothyroxine 50 Mcg Tab PO Not Given DAILY@0500 [facility] Methylprednisolone Sodium Succinate 60 mg 08/17/21 18:00 08/19/21 12:21 Methylprednisolone Sod Succi 125 Mg/2 Ml Vial IV 60 mg Q6HR [facility] Administration Metoprolol Tartrate 25 mg 08/18/21 09:45 08/19/21 13:15 Metoprolol Tartrate 25 Mg Tab PO Not Given BID [facility] Naloxone HCl 0.2 mg 08/19/21 09:46 Naloxone 0.4 Mg/Ml 1 Ml Vial IV Q2M PRN Opioid Reversal Tramadol HCl 50 mg 08/17/21 17:59 Tramadol 50 Mg Tab PO Q6H PRN Pain Objective - Vital Signs Vital signs: Vital Signs Temp 97.7 F 08/19/21 00:00 Pulse 81 08/19/21 12:19 Resp 18 08/19/21 04:00 BP 147/64 08/19/21 04:00 Pulse Ox 75 L 08/19/21 09:00 FiO2 80 08/19/21 11:50 Intake & Output 08/18/21 08/19/21 08/19/21 18:59 06:59 18:59 Intake Total 1049.6 1200 Output Total 325 610 Balance 724.6 590 Weight 54.3 kg 54.3 kg Intake: Intake, IV Titration 1049.6 1200 Amount Amiodarone 360 mg In 133.2 Dextrose 5% in Water 200 ml @ 1 MG/MIN 33.333 mls/ hr IV .Q6H [facility] Rx#: [id number] Amiodarone 450 mg In 66.4 Dextrose 5% in Water 250 ml @ 0.5 MG/MIN 16.667 mls/hr IV .Q15H [facility] Rx#: [id number] Clindamycin 300 mg In 50 Dextrose 5% in Water 50 ml @ 50 mls/hr IVPB Q8HR [facility] Rx#:[id number] Sodium Chloride 0.9% 1, 800 1200 000 ml @ 100 mls/hr IV . Q10H [facility] Rx#:[id number] Output: Urine 325 610 Other: Voiding Method Indwelling Catheter Indwelling Catheter - Exam GENERAL: The patient is intubated and sedated HEENT: Pupils are round and equally reacting to light. EOMI. No scleral icterus. No conjunctival pallor. Normocephalic, atraumatic. No pharyngeal erythema. No t hyromegaly. CARDIOVASCULAR: S1 and S2 present. No murmurs, rubs, or gallops. -PULMONARY: Chest is clear to auscultation, Decreased air entry with scattered wheezing and bilateral crepitation ABDOMEN: Soft, nontender, nondistended, normoactive bowel sounds. No palpable organomegaly. MUSCULOSKELETAL: No joint swelling or deformity. -EXTREMITIES: No cyanosis, clubbing, or pedal edema. Multiple bilateral leg ulcers including both heels and right lateral leg. No evidence of overt surrounding cellulitis NEUROLOGICAL: Gross neurological examination did not reveal any focal deficits. SKIN: No rashes. no petechiae. - Labs CBC & Chem 7: 08/19/21 10:37 08/19/21 10:37 Labs: Abnormal Lab Results - Last 24 Hours (Table) 08/18/21 08/18/21 08/19/21 Range/Units 16:34 20:25 06:28 WBC (3.8-10.6) k/uL RBC (4.30-5.90) m/uL Hgb (13.0-17.5) gm/dL Hct (39.0-53.0) % MCV (80.0-100.0) fL MCHC (31.0-37.0) g/dL RDW (11.5-15.5) % Neutrophils # (1.3-7.7) k/uL Lymphocytes # (1.0-4.8) k/uL ABG pH (7.35-7.45) ABG pCO2 (35-45) mmHg ABG pO2 (83-108) mmHg ABG Total CO2 (19-24) mmol/L ABG O2 Saturation (94-97) % Chloride (98-107) mmol/L BUN (9-20) mg/dL Creatinine (0.66-1.25) mg/dL Glucose (74-99) mg/dL POC Glucose (mg/dL) 112 H 130 H 164 H (75-99) mg/dL Calcium (8.4-10.2) mg/dL Total Bilirubin (0.2-1.3) mg/dL ALT (4-49) U/L Total Protein (6.3-8.2) g/dL Albumin (3.5-5.0) g/dL 08/19/21 08/19/21 08/19/21 Range/Units 09:48 10:37 10:37 WBC 11.6 H (3.8-10.6) k/uL RBC 2.86 L (4.30-5.90) m/uL Hgb 8.6 L (13.0-17.5) gm/dL Hct 28.8 L (39.0-53.0) % MCV 100.9 H (80.0-100.0) fL MCHC 29.9 L (31.0-37.0) g/dL RDW 18.5 H (11.5-15.5) % Neutrophils # 11.0 H (1.3-7.7) k/uL Lymphocytes # 0.3 L (1.0-4.8) k/uL ABG pH (7.35-7.45) ABG pCO2 (35-45) mmHg ABG pO2 (83-108) mmHg ABG Total CO2 (19-24) mmol/L ABG O2 Saturation (94-97) % Chloride 113 H (98-107) mmol/L BUN 44 H (9-20) mg/dL Creatinine 1.42 H (0.66-1.25) mg/dL Glucose 134 H (74-99) mg/dL POC Glucose (mg/dL) 142 H (75-99) mg/dL Calcium 7.9 L (8.4-10.2) mg/dL Total Bilirubin 0.1 L (0.2-1.3) mg/dL ALT 195 H (4-49) U/L Total Protein 5.3 L (6.3-8.2) g/dL Albumin 2.8 L (3.5-5.0) g/dL 08/19/21 08/19/21 Range/Units 10:38 11:58 WBC (3.8-10.6) k/uL RBC (4.30-5.90) m/uL Hgb (13.0-17.5) gm/dL Hct (39.0-53.0) % MCV (80.0-100.0) fL MCHC (31.0-37.0) g/dL RDW (11.5-15.5) % Neutrophils # (1.3-7.7) k/uL Lymphocytes # (1.0-4.8) k/uL ABG pH 7.19 L* (7.35-7.45) ABG pCO2 65 H (35-45) mmHg ABG pO2 124 H (83-108) mmHg ABG Total CO2 27 H (19-24) mmol/L ABG O2 Saturation 99.0 H (94-97) % Chloride (98-107) mmol/L BUN (9-20) mg/dL Creatinine (0.66-1.25) mg/dL Glucose (74-99) mg/dL POC Glucose (mg/dL) 121 H (75-99) mg/dL Calcium (8.4-10.2) mg/dL Total Bilirubin (0.2-1.3) mg/dL ALT (4-49) U/L Total Protein (6.3-8.2) g/dL Albumin (3.5-5.0) g/dL Microbiology - Last 24 Hours (Table) 08/18/21 06:04 Blood Culture - Preliminary Blood No Growth after 24 hours Assessment and Plan Assessment: Acute hypoxic respiratory failure requiring intubation and mechanical ventilation COPD with exacerbation Multiple pressure ulcers with suspected infection Moderate to severe calories and protein malnutrition multiple leg wounds focal scar versus speculated nodule in the right upper lobe History of hypertension, currently he is hypotensive Hyperlipidemia Dehydration Chronic altered mental status with some elements of acute related to metabolic encephalopathy. Possible dementia History of osteoarthritis History of chronic nonpressure ulcer of the back Plan: This is a pleasant 71 years old male who presents with COPD and possible infected pressure ulcers and hypotension Continue with steroids IV Solu-Medrol 60 MG Continue with intubation and mechanical ventilation as per pulmonary/critical care team Continue with antibiotics Zosyn Continue with amiodarone per cushion sewer Check thyroid function, hemoglobin A1c and potential started the nursery. cardiology consult Pulmonary chronic left DVTLabs and medication were reviewed.. Continue same treatment. Continue with symptomatic treatment. Resume home medication. Monitor lytes and vitals. DVT and GI prophylaxis. Further recommendations depends on the clinical course of the patient DVT prophylaxis: Subcutaneous LovenoxGI Prophylaxis: Pepcid PT/OT: Pending Prognosis is guarded CODE STATUS Full code per per staff
[2021-08-19 18:22] LABS: Glucose,Whole Blood 114 mg/dL (75-99)
[2021-08-19] MEDS: PIPERACILLIN-TAZOBACTAM 3.375 GM in SODIUM CHLORIDE 0.9% 100 ML IVPB SCH ×2 (18:27→23:48)
[2021-08-19] MEDS: CHLORHEXIDINE GLUCONATE 15 ML CUP MUCOUS MEM SCH (20:49)
--- NOTE | 2021-08-19 21:31 | XR ---
EXAMINATION TYPE: XR chest 1V DATE OF EXAM: 08/19/2021 9:20 PM COMPARISON: Chest radiographs from 08/19/2021 TECHNIQUE: XR chest 1V Portable AP radiograph of the chest. CLINICAL INDICATION:Male, 71 years old with history of Rule out pneumothorax; FINDINGS: Lungs/Pleura: Trace bilateral pleural effusions are present. There is airspace opacities most pronoun petra along the left lung which are improved from prior. Relative increased lucency seen within the rig ht upper lobe. There is no evidence of pneumothorax. Pulmonary vascularity: Unremarkable. Heart/mediastinum: Cardiomediastinal silhouette is unremarkable. Musculoskeletal: No acute osseous pathology. Left central venous catheter with tip at the superior cavoatrial junction. Endotracheal tube with distal tip 5.6 cm above the josette. Nasogastric tube with distal tip and side port terminating in the diaphragm. IMPRESSION: 1. No evidence of pneumothorax. 2. Persistent airspace opacities with improved aeration within the left lung which could be due to r espiratory effort. 3. Trace bilateral pleural effusions. 4. Superimposed COPD changes.
[2021-08-20 00:02] LABS: Glucose,Whole Blood 152 mg/dL (75-99)
[2021-08-20] MEDS: INSULIN ASPART (NovoLOG) 100 UNIT/ML VIAL SQ SCH ×5 (00:03→23:39)
[2021-08-20] MEDS: AMIODARONE 450 MG in DEXTROSE 5% IN WATER 250 ML IV SCH ×2 (03:25)
[2021-08-20] MEDS: IPRATROPIUM-ALBUTEROL 3 ML NEB INHALATION SCH ×5 (04:18→21:07)
[2021-08-20 05:54] LABS: Glucose,Whole Blood 182 mg/dL (75-99)
[2021-08-20] MEDS: methylPREDNISolone SOD SUCCI 125 MG/2 ML VIAL IV SCH ×4 (06:04→23:40)
[2021-08-20] MEDS: LEVOTHYROXINE 50 MCG TAB PO SCH (06:04)
[2021-08-20 06:13] LABS: ABG Base Excess -4.6 mmol/L; ABG HCO3 22 mmol/L (21-25); ABG Oxygen Saturation 99.2 % (94-97); ABG PCO2 42 mmHg (35-45); ABG PH 7.32 (7.35-7.45); ABG PO2 113 mmHg (83-108); ABG TCO2 23 mmol/L (19-24); Allen Test Performed? Yes
[2021-08-20 06:44] LABS: Anisocytosis Slight; Basophils % (A) 0 %; Eosinophils % (A) 0 %; HCT 24.2 % (39.0-53.0); Hypochromasia Marked; Lymphocytes # (A) 0.2 k/uL (1.0-4.8); Lymphocytes % (A) 3 %; MCH 29.4 pg (25.0-35.0); MCHC 29.2 g/dL (31.0-37.0); MCV 100.7 fL (80.0-100.0); Macrocytosis Moderate; Mean Platelet Volume 10.2; Monocytes # (A) 0.2 k/uL (0-1.0); Monocytes % (A) 3 %; Neutrophils # (A) 7.8 k/uL (1.3-7.7); Neutrophils % (A) 94 %; Platelet Count 188 k/uL (150-450); RBC 2.41 m/uL (4.30-5.90); RDW 18.5 % (11.5-15.5); WBC 8.3 k/uL (3.8-10.6)
[2021-08-20 06:49] LABS: HGB 7.1 gm/dL (13.0-17.5)
[2021-08-20 06:59] LABS: Calcium 7.3 mg/dL (8.4-10.2); Potassium 4.8 mmol/L (3.5-5.1)
--- NOTE | 2021-08-20 07:04 | XR ---
EXAMINATION TYPE: XR chest 1V portable DATE OF EXAM: 08/20/2021 5:06 AM COMPARISON: Chest radiograph from one day prior. TECHNIQUE: XR chest 1V portable Portable AP radiograph of the chest.. CLINICAL INDICATION:Male, 71 years old with history of Tube placement; FINDINGS: Lungs/Pleura: Similar small left and trace right pleural effusions. Similar airspace opacities most p ronounced on the left which may be better aerated on today's exam. There is increased lucency in the lung apices with finding the diaphragm. Pulmonary vascularity: Unremarkable. Heart/mediastinum: Cardiomediastinal silhouette is unremarkable. Atherosclerotic calcifications are seen in the aorta. Musculoskeletal: No acute osseous pathology. Lines/Tubes: Endotracheal tube with distal tip 5.4 cm above the josette Nasogastric tube with its distal tip and side-port projecting under the diaphragm. Left internal jugular central venous catheter with distal tip at the cavoatrial junction. IMPRESSION: 1. Endotracheal, nasogastric tubes and left central venous catheter in appropriate position. 2. Mildly improved aeration of the left lung with persistent multifocal airspace opacities. 3. Similar bilateral pleural effusions, left greater than right. 4. COPD changes.
[2021-08-20] MEDS: FORMOTEROL FUMARATE 20 MCG/2 ML NEBU INHALATION SCH ×2 (07:49→21:07)
[2021-08-20] MEDS: BUDESONIDE 1 MG/2 ML NEBU INHALATION SCH ×2 (07:49→21:07)
[2021-08-20] MEDS: SODIUM CHLORIDE 0.9% 1,000 ML IV SCH ×2 (08:00→17:44)
[2021-08-20] MEDS: PIPERACILLIN-TAZOBACTAM 3.375 GM in SODIUM CHLORIDE 0.9% 100 ML IVPB SCH ×3 (08:03→23:42)
[2021-08-20] MEDS: AMIODARONE 200 MG TAB PO SCH ×2 (08:03→20:24)
[2021-08-20] MEDS: METOPROLOL TARTRATE 25 MG TAB PO SCH ×2 (08:04→20:26)
[2021-08-20] MEDS: FAMOTIDINE 20 MG TAB PO SCH (08:04)
[2021-08-20] MEDS: ENOXAPARIN 60 MG/0.6 ML SYRINGE SQ SCH ×2 (08:04→20:26)
[2021-08-20] MEDS: CHLORHEXIDINE GLUCONATE 15 ML CUP MUCOUS MEM SCH ×2 (08:04→20:24)
--- NOTE | 2021-08-20 10:23 | P.PN ---
Subjective Progress Note Date: 08/20/21 This patient with history of severe COPD who was transferred to intensive care unit because of respiratory failure requiring intubation. Cardiac consult was requested because of atrial fibrillation and flutter. Patient was initiated on IV amiodarone. Patient converted back to sinus rhythm and has been maintaining. Patient is still intubated and sedated. No other cardiac issues at this time. Recent echocardiogram showed an ejection fraction of 50% is moderate mitral regurgitation and also mild to moderate gradient across the aortic valve. Objective - Vital Signs Vital signs: Vital Signs Temp 98.4 F 08/20/21 08:00 Pulse 76 08/20/21 10:00 Resp 25 H 08/20/21 10:00 BP 123/58 08/20/21 10:00 Pulse Ox 97 08/20/21 10:00 FiO2 35 08/20/21 10:17 Intake & Output 08/19/21 08/20/21 08/20/21 18:59 06:59 18:59 Intake Total 7996.615 5217.967 748.147 Output Total 410 495 155 Balance 1671.623 5571.967 593.147 Weight 54.3 kg Intake: IV 1700 1200 400 Sodium Chloride 0.9% 1, 700 1200 300 000 ml @ 100 mls/hr IV . Q10H [facility] Rx#:[id number] Sodium Chloride 0.9% 1, 1000 000 ml @ 999 mls/hr IV . Q1H1M [facility] Rx#:[id number] ns 100 Intake, IV Titration 104.745 497.967 198.147 Amount Amiodarone 450 mg In 250 Dextrose 5% in Water 250 ml @ 0.5 MG/MIN 16.667 mls/hr IV .Q15H [facility] Rx#: [id number] Piperacillin-Tazobactam 3 100 .375 gm In Sodium Chloride 0.9% 100 ml @ 25 mls/hr IVPB Q8HR [facility] Rx# :[id number] propofoL 1,000 mg In 104.745 247.967 98.147 Empty Bag 1 bag @ 5 MCG/ KG/MIN 1.629 mls/hr IV . Q24H [facility] Rx#:[id number] Tube Feeding 60 Other 90 Output: Urine 410 495 155 Other: Voiding Method Indwelling Catheter Indwelling Catheter Indwelling Catheter ABP, PAP, CO, CI - Last Documented Arterial Blood Pressure 114/47 - Exam GENERAL EXAM: Patient is intubated and sedated HEENT: Normocephalic. Normal reaction of pupils, equal size, normal range of extraocular motion. No erythema or exudates in the throat. NECK: No masses, no nuchal rigidity. CHEST: No chest wall deformity. LUNGS: Diminished breath sounds HEART: [Distant heart sounds ABDOMEN: No hepatosplenomegaly, normal bowel sounds, no guarding or rigidity. SKIN: No rashes CENTRAL NERVOUS SYSTEM: Deferred EXTREMITIES: [No cyanosis, clubbing or edema.] - Labs CBC & Chem 7: 08/20/21 05:45 08/20/21 05:45 Labs: Abnormal Lab Results - Last 24 Hours (Table) 08/19/21 08/19/21 08/19/21 Range/Units 10:37 10:37 10:37 WBC 11.6 H (3.8-10.6) k/uL RBC 2.86 L (4.30-5.90) m/uL Hgb 8.6 L (13.0-17.5) gm/dL Hct 28.8 L (39.0-53.0) % MCV 100.9 H (80.0-100.0) fL MCHC 29.9 L (31.0-37.0) g/dL RDW 18.5 H (11.5-15.5) % Neutrophils # 11.0 H (1.3-7.7) k/uL Lymphocytes # 0.3 L (1.0-4.8) k/uL ABG pH (7.35-7.45) ABG pCO2 (35-45) mmHg ABG pO2 (83-108) mmHg ABG Total CO2 (19-24) mmol/L ABG O2 Saturation (94-97) % Chloride 113 H (98-107) mmol/L Carbon Dioxide (22-30) mmol/L BUN 44 H (9-20) mg/dL Creatinine 1.42 H (0.66-1.25) mg/dL Glucose 134 H (74-99) mg/dL POC Glucose (mg/dL) (75-99) mg/dL Calcium 7.9 L (8.4-10.2) mg/dL Total Bilirubin 0.1 L (0.2-1.3) mg/dL ALT 195 H (4-49) U/L Total Protein 5.3 L (6.3-8.2) g/dL Albumin 2.8 L (3.5-5.0) g/dL Procalcitonin 0.41 H (0.02-0.09) ng/mL 08/19/21 08/19/21 08/19/21 Range/Units 10:38 11:58 18:20 WBC (3.8-10.6) k/uL RBC (4.30-5.90) m/uL Hgb (13.0-17.5) gm/dL Hct (39.0-53.0) % MCV (80.0-100.0) fL MCHC (31.0-37.0) g/dL RDW (11.5-15.5) % Neutrophils # (1.3-7.7) k/uL Lymphocytes # (1.0-4.8) k/uL ABG pH 7.19 L* (7.35-7.45) ABG pCO2 65 H (35-45) mmHg ABG pO2 124 H (83-108) mmHg ABG Total CO2 27 H (19-24) mmol/L ABG O2 Saturation 99.0 H (94-97) % Chloride (98-107) mmol/L Carbon Dioxide (22-30) mmol/L BUN (9-20) mg/dL Creatinine (0.66-1.25) mg/dL Glucose (74-99) mg/dL POC Glucose (mg/dL) 121 H 114 H (75-99) mg/dL Calcium (8.4-10.2) mg/dL Total Bilirubin (0.2-1.3) mg/dL ALT (4-49) U/L Total Protein (6.3-8.2) g/dL Albumin (3.5-5.0) g/dL Procalcitonin (0.02-0.09) ng/mL 08/20/21 08/20/21 08/20/21 Range/Units 00:00 05:45 05:45 WBC (3.8-10.6) k/uL RBC 2.41 L (4.30-5.90) m/uL Hgb 7.1 L D (13.0-17.5) gm/dL Hct 24.2 L (39.0-53.0) % MCV 100.7 H (80.0-100.0) fL MCHC 29.2 L (31.0-37.0) g/dL RDW 18.5 H (11.5-15.5) % Neutrophils # 7.8 H (1.3-7.7) k/uL Lymphocytes # 0.2 L (1.0-4.8) k/uL ABG pH (7.35-7.45) ABG pCO2 (35-45) mmHg ABG pO2 (83-108) mmHg ABG Total CO2 (19-24) mmol/L ABG O2 Saturation (94-97) % Chloride 116 H (98-107) mmol/L Carbon Dioxide 21 L (22-30) mmol/L BUN 44 H (9-20) mg/dL Creatinine 1.44 H (0.66-1.25) mg/dL Glucose 156 H (74-99) mg/dL POC Glucose (mg/dL) 152 H (75-99) mg/dL Calcium 7.3 L (8.4-10.2) mg/dL Total Bilirubin (0.2-1.3) mg/dL ALT (4-49) U/L Total Protein (6.3-8.2) g/dL Albumin (3.5-5.0) g/dL Procalcitonin (0.02-0.09) ng/mL 08/20/21 08/20/21 Range/Units 05:51 06:09 WBC (3.8-10.6) k/uL RBC (4.30-5.90) m/uL Hgb (13.0-17.5) gm/dL Hct (39.0-53.0) % MCV (80.0-100.0) fL MCHC (31.0-37.0) g/dL RDW (11.5-15.5) % Neutrophils # (1.3-7.7) k/uL Lymphocytes # (1.0-4.8) k/uL ABG pH 7.32 L (7.35-7.45) ABG pCO2 (35-45) mmHg ABG pO2 113 H (83-108) mmHg ABG Total CO2 (19-24) mmol/L ABG O2 Saturation 99.2 H (94-97) % Chloride (98-107) mmol/L Carbon Dioxide (22-30) mmol/L BUN (9-20) mg/dL Creatinine (0.66-1.25) mg/dL Glucose (74-99) mg/dL POC Glucose (mg/dL) 182 H (75-99) mg/dL Calcium (8.4-10.2) mg/dL Total Bilirubin (0.2-1.3) mg/dL ALT (4-49) U/L Total Protein (6.3-8.2) g/dL Albumin (3.5-5.0) g/dL Procalcitonin (0.02-0.09) ng/mL Microbiology - Last 24 Hours (Table) 08/19/21 12:06 Gram Stain - Preliminary Sputum Sputum Culture - Preliminary 08/18/21 06:04 Blood Culture - Preliminary Blood No Growth after 48 hours Assessment and Plan (1) Atrial flutter Current Visit: Yes Status: Acute Code(s): I48.92 - UNSPECIFIED ATRIAL FLUTTER SNOMED Code(s): 0431412 (2) COPD exacerbation Current Visit: Yes Status: Acute Code(s): J44.1 - CHRONIC OBSTRUCTIVE PULMONARY DISEASE W (ACUTE) EXACERBATION SNOMED Code(s): 269478620 Plan: Patient is back in sinus rhythm. Continue current medical therapy. We'll follow
--- NOTE | 2021-08-20 11:20 | P.PN ---
Subjective Progress Note Date: 08/20/21 71-year-old male patient with known history of severe end-stage COPD, with a baseline FEV1 of 0.67 L or 25% predicted as November 2020 PFT, on home oxygen patient usually wears 3 L of oxygen on a regular basis, ex-smoker, chronic dyspnea, hypertension, hyperlipidemia, osteoarthritis, cachexia, chronic n onhealing ulcers involving bilateral feet. Patient was recently required hospitalization in the last several weeks at the [facility] when he required mechanical ventilator support. Patient follows with Dr. Hall in the pulmonary clinic. On 08/17/2021 patient presents to the emergency department from a senior care because of weakness and fatigue. Patient was also complaining of some chest discomfort in the morning, and shortness of breath. Denied any recent fever or chills. No worsening cough wheezing or phlegm production. No hemoptysis. Chest x-ray showed small bilateral pleural effusions with minimal subsegmental atelectasis at the left base. EKG showed sinus rhythm, with minimal ST depression in inferior leads, and T-wave inversion in aVL and LVH. Laboratory evaluation showed elevated white count of 17.7, hemoglobin of 10.0, platelet count of 285, d-dimer was mildly elevated to 0.97, sodium is 144, potassium is 5.1, BUN of 32, creatinine 0.69, 2 sets of troponins were negative at 0.020, less than 0.012, pro-calcitonin level was elevated to 0.50, TSH was within normal limits, LFTs were within normal limits, plasma lactic acid was 1.3 urinalysis without sign of infection. CT angiogram of the chest showed no evidence of acute pulmonary embolism, and moderate emphysematous change with small size right greater than left pleural effusions. There was focal scarring versus spiculated nodule in the posterior right upper lobe which is new from 2014 study with recommendation of follow-up PET scan. Patient is currently on 3 L of oxygen pulse ox is 99%, he is very short of breath at rest, but appears to be in no acute distress, he is able to answer some simple questions, but he does have conversational dyspnea as well. Afebrile, he is tachycardic, cardiology has been consulted for SVT. Patient is on amiodarone infusion at 1 mg/m for rate control, he is on empiric antibiotics and breathing treatments and IV steroids. The patient is seen today 08/19/2021 in follow-up on the selective care unit. Upon arrival the patient was quite obtunded and unarousable and breathing shallow. He was immediately transferred to the intensive care unit requiring emergent intubation and placed on the mechanical ventilator. Initial settings included assist control mode with a rate of 20, tidal volume 350, FiO2 100% and a PEEP of 5. Left subclavian triple-lumen catheter place. Right radial arterial line placed. Arterial blood gases revealed a PaO2 of 124, pCO2 of 65 and a pH of 7.19. His respiratory rate was increased to 28. PEEP increased to 8. Plans to titrate down the FiO2. White count 11.6. Hemoglobin 8.6. Platelets 256. Sodium 143. Potassium 4.9. Chloride 113. BUN 44. Creatinine 1.42. Glucose 134. AST 42. ALT 195. Albumin 2.8. He is currently sedated on propofol at 50 mcg/kg/m. To be given 1-2 L of fluid resuscitation. Chest x-ray reveals no evidence of pneumothorax, satisfactory positioning of the endotracheal and orogastric tubes. There is worsening left lung edema/infiltrates. Improved aeration of the right lung base. Augmentin discontinued. Initiated on Zosyn. Pro-calcitonin pending. Culture revealing no growth to date. He was initially in atrial fibrillation requiring amiodarone. He is continued on bronchodilators, IV Solu-Medrol. He remains in a positive balance. The patient is seen today 08/20/2021 in follow-up in the intensive care unit. He remains intubated on mechanical ventilator. Still notices control mode with a rate of 28, attentive on 350, FiO2 40% and a PEEP of 8. Morning blood gases revealed a PaO2 of 113, pCO2 42, pH 7.32. He remains sedated on propofol at 75 mcg/kg/m. He has normal saline running at 100 ML's per hour. He is being nourished with vital HPI at 20 ML's per hour with a goal of 36. He is on antibiotics in the form of Zosyn. He is continued on DuoNeb inhalations, Pulmicort and Perforomist inhalations, IV Solu-Medrol. Chest x-ray continues to show mildly improved aeration in the left lung with persistent multifocal airspace opacities. Small bilateral effusions left greater than right. Evidence of COPD. Endotracheal, nasogastric tubes and left central venous catheter all in appropriate position. Blood culture reveals no growth to date. Sputum cultures pending. White count 8.3. Hemoglobin 7.1. Platelets 188. Sodium 143. Potassium 4.8. Chloride 116. Bicarb 21. BUN 44. Creatinine 1.44. Glucose 156. Currently in a +2.5 L. Currently in sinus rhythm. He remains on oral amiodarone. Lovenox for DVT prophylaxis. Objective - Vital Signs Vital signs: Vital Signs Temp 98.4 F 08/20/21 08:00 Pulse 74 08/20/21 11:00 Resp 28 H 08/20/21 11:00 BP 123/61 08/20/21 11:00 Pulse Ox 97 08/20/21 11:00 FiO2 35 08/20/21 10:17 Intake & Output 08/19/21 08/20/21 08/20/21 18:59 06:59 18:59 Intake Total 1122.991 7969.967 748.147 Output Total 410 495 155 Balance 6992.429 2482.967 593.147 Weight 54.3 kg Intake: IV 1700 1200 400 Sodium Chloride 0.9% 1, 700 1200 300 000 ml @ 100 mls/hr IV . Q10H [facility] Rx#:[id number] Sodium Chloride 0.9% 1, 1000 000 ml @ 999 mls/hr IV . Q1H1M [facility] Rx#:[id number] ns 100 Intake, IV Titration 104.745 497.967 198.147 Amount Amiodarone 450 mg In 250 Dextrose 5% in Water 250 ml @ 0.5 MG/MIN 16.667 mls/hr IV .Q15H [facility] Rx#: [id number] Piperacillin-Tazobactam 3 100 .375 gm In Sodium Chloride 0.9% 100 ml @ 25 mls/hr IVPB Q8HR [facility] Rx# :[id number] propofoL 1,000 mg In 104.745 247.967 98.147 Empty Bag 1 bag @ 5 MCG/ KG/MIN 1.629 mls/hr IV . Q24H [facility] Rx#:[id number] Tube Feeding 60 Other 90 Output: Urine 410 495 155 Other: Voiding Method Indwelling Catheter Indwelling Catheter Indwelling Catheter ABP, PAP, CO, CI - Last Documented Arterial Blood Pressure 111/51 - Exam GENERAL EXAM: Intubated, sedated cachectic-looking 71-year-old male. HEAD: Normocephalic/atraumatic. EYES: Normal reaction of pupils, equal size. Conjunctiva pink, sclera white. NOSE: Clear with pink turbinates. THROAT: No erythema or exudates. NECK: No masses, no JVD, no thyroid enlargement, no adenopathy. CHEST: No chest wall deformity. Symmetrical expansion. LUNGS: Equal air entry with diffuse crackles, diminished breath sounds CVS: Regular rate and rhythm, normal S1 and S2, no gallops, no murmurs, no rubs ABDOMEN: Soft, nontender. No hepatosplenomegaly, normal bowel sounds, no guarding or rigidity. EXTREMITIES: No clubbing, no edema, no cyanosis, 2+ pulses and upper and lower extremities. MUSCULOSKELETAL: Muscle strength and tone normal. SPINE: No scoliosis or deformity SKIN: No rashes CENTRAL NERVOUS SYSTEM: Sedated. Tone is normal in all 4 extremities. PSYCHIATRIC: Unable to assess - Labs CBC & Chem 7: 08/20/21 05:45 08/20/21 05:45 Labs: Abnormal Lab Results - Last 24 Hours (Table) 08/19/21 08/19/21 08/19/21 Range/Units 10:37 10:37 10:37 WBC 11.6 H (3.8-10.6) k/uL RBC 2.86 L (4.30-5.90) m/uL Hgb 8.6 L (13.0-17.5) gm/dL Hct 28.8 L (39.0-53.0) % MCV 100.9 H (80.0-100.0) fL MCHC 29.9 L (31.0-37.0) g/dL RDW 18.5 H (11.5-15.5) % Neutrophils # 11.0 H (1.3-7.7) k/uL Lymphocytes # 0.3 L (1.0-4.8) k/uL ABG pH (7.35-7.45) ABG pO2 (83-108) mmHg ABG O2 Saturation (94-97) % Chloride 113 H (98-107) mmol/L Carbon Dioxide (22-30) mmol/L BUN 44 H (9-20) mg/dL Creatinine 1.42 H (0.66-1.25) mg/dL Glucose 134 H (74-99) mg/dL POC Glucose (mg/dL) (75-99) mg/dL Calcium 7.9 L (8.4-10.2) mg/dL Total Bilirubin 0.1 L (0.2-1.3) mg/dL ALT 195 H (4-49) U/L Total Protein 5.3 L (6.3-8.2) g/dL Albumin 2.8 L (3.5-5.0) g/dL Procalcitonin 0.41 H (0.02-0.09) ng/mL 08/19/21 08/19/21 08/20/21 Range/Units 11:58 18:20 00:00 WBC (3.8-10.6) k/uL RBC (4.30-5.90) m/uL Hgb (13.0-17.5) gm/dL Hct (39.0-53.0) % MCV (80.0-100.0) fL MCHC (31.0-37.0) g/dL RDW (11.5-15.5) % Neutrophils # (1.3-7.7) k/uL Lymphocytes # (1.0-4.8) k/uL ABG pH (7.35-7.45) ABG pO2 (83-108) mmHg ABG O2 Saturation (94-97) % Chloride (98-107) mmol/L Carbon Dioxide (22-30) mmol/L BUN (9-20) mg/dL Creatinine (0.66-1.25) mg/dL Glucose (74-99) mg/dL POC Glucose (mg/dL) 121 H 114 H 152 H (75-99) mg/dL Calcium (8.4-10.2) mg/dL Total Bilirubin (0.2-1.3) mg/dL ALT (4-49) U/L Total Protein (6.3-8.2) g/dL Albumin (3.5-5.0) g/dL Procalcitonin (0.02-0.09) ng/mL 08/20/21 08/20/21 08/20/21 Range/Units 05:45 05:45 05:51 WBC (3.8-10.6) k/uL RBC 2.41 L (4.30-5.90) m/uL Hgb 7.1 L D (13.0-17.5) gm/dL Hct 24.2 L (39.0-53.0) % MCV 100.7 H (80.0-100.0) fL MCHC 29.2 L (31.0-37.0) g/dL RDW 18.5 H (11.5-15.5) % Neutrophils # 7.8 H (1.3-7.7) k/uL Lymphocytes # 0.2 L (1.0-4.8) k/uL ABG pH (7.35-7.45) ABG pO2 (83-108) mmHg ABG O2 Saturation (94-97) % Chloride 116 H (98-107) mmol/L Carbon Dioxide 21 L (22-30) mmol/L BUN 44 H (9-20) mg/dL Creatinine 1.44 H (0.66-1.25) mg/dL Glucose 156 H (74-99) mg/dL POC Glucose (mg/dL) 182 H (75-99) mg/dL Calcium 7.3 L (8.4-10.2) mg/dL Total Bilirubin (0.2-1.3) mg/dL ALT (4-49) U/L Total Protein (6.3-8.2) g/dL Albumin (3.5-5.0) g/dL Procalcitonin (0.02-0.09) ng/mL 08/20/21 Range/Units 06:09 WBC (3.8-10.6) k/uL RBC (4.30-5.90) m/uL Hgb (13.0-17.5) gm/dL Hct (39.0-53.0) % MCV (80.0-100.0) fL MCHC (31.0-37.0) g/dL RDW (11.5-15.5) % Neutrophils # (1.3-7.7) k/uL Lymphocytes # (1.0-4.8) k/uL ABG pH 7.32 L (7.35-7.45) ABG pO2 113 H (83-108) mmHg ABG O2 Saturation 99.2 H (94-97) % Chloride (98-107) mmol/L Carbon Dioxide (22-30) mmol/L BUN (9-20) mg/dL Creatinine (0.66-1.25) mg/dL Glucose (74-99) mg/dL POC Glucose (mg/dL) (75-99) mg/dL Calcium (8.4-10.2) mg/dL Total Bilirubin (0.2-1.3) mg/dL ALT (4-49) U/L Total Protein (6.3-8.2) g/dL Albumin (3.5-5.0) g/dL Procalcitonin (0.02-0.09) ng/mL Microbiology - Last 24 Hours (Table) 08/19/21 12:06 Gram Stain - Preliminary Sputum Sputum Culture - Preliminary 08/18/21 06:04 Blood Culture - Preliminary Blood No Growth after 48 hours Assessment and Plan Assessment: 1 Acute exacerbation of COPD with acute hypoxemic respiratory failure requiring intubation and mechanical ventilation on 08/19/2021 2 A flutter with RVR, currently in sinus rhythm, on oral amiodarone 3 History of severe end-stage COPD with baseline FEV1 of 25% of predicted 4 Chronic hypoxic respiratory failure related to the above 5 Former smoker 6 Nonhealing bilateral lower extremity ulcers 7 Elevated pro-calcitonin level, rule out possibility of infection, currently on Zosyn 8 Mildly elevated d-dimer, with no CT evidence of pulmonary embolism 9 Focal scarring versus spiculated nodule in the right upper lobe, will need outpatient follow-up, and possible PET scan 10 Chronic cachexia 11 Hypertension 12 Hyperlipidemia 13 Hypothyroidism 14 Osteoarthritis Plan: The patient was seen and evaluated Chest x-ray, ABGs, labs and medications reviewed Decreased FiO2 to 35% Titrate the FiO2 as tolerated Remains on Zosyn DuoNeb inhalations every 4 hours Continue Pulmicort and Perforomist inhalations, IV Solu-Medrol Overall prognosis remains quite guarded Follow-up chest x-ray, ABGs and labs in the a.m. We will continue to follow I have personally seen and examined the patient, performed the documentation and the assessment and plan as written. Number of minutes spent on the visit: 10.
[2021-08-20 11:40] LABS: Glucose,Whole Blood 137 mg/dL (75-99)
[2021-08-20] MEDS: HYDROmorphone 1 MG/ML 1 ML SYRINGE IVP PRN (13:40)
--- NOTE | 2021-08-20 17:15 | P.PN ---
Subjective This is a pleasant 71 years old male with past medical history of COPD, Hyperlipidemia, Hypertension, Osteoarthritis , Metabolic Encaphalopathy, Acute kidney failure with tubular necrosis, Cachexia, Chronic non-pressure ulcer of back, Rhabdomylosis was sent from [facility] with increased weakness and lethargy over the last 2-3days Patient is poor historian but as per staff with his he has been a long term for the last 1-2 months and his been confused. pt looks cachectic and very frail, he is oriented to time ,place and person , but has no denture, his voice is muffled because of that he is been complaining from dyspnea and chest pain which is mild in the middle nonradiating and associated with very little cough. He says his shortness of breath was worse over the last 1 day and a half. Denies any abdominal pain or vomiting or diarrhea but he has low appetite. He denies any choking or swallow problem but he has no denture so we'll check for swallow evaluation Patient looks tachypneic with bilateral chest with some limited air entry but no ricardo wheezing. Patient states that he quit smoking about 10 years ago, used to smoke for more than 10 years. No alcohol or illicit drugs. He has multiple pressure ulcers he has one large pressure ulcers on the right leg laterally with drying scab Or any dressing . Also has multiple pressure ulcers with black eschar on both heels and left foot. The surrounding skin looks intact with no redness or swelling. On admission he was slightly tachypneic on 20, afebrile and heart rate was 84 and blood pressure 141/64, however overnight his blood pressure dropped with sys tolic 90s to 100, currently his blood pressure 104/68, also became tachycardic with heart rate 04/17/2049. He was saturating 9920% on 2-3 L oxygen via nasal cannula. He is mildly hypothermic at 97.2 His WBC is elevated at 17.7. Hemoglobin is 10.0. Platelet count 258. INR 0.9. BUN is 32 and creatinine 0.9. Troponin is 0.02 and less than 0.01. Glucose was on the low side 57 on admission and currently is 201. Urinalysis showed 1+ protein with no evidence of infection. Patient started on steroids and got a breathing treatment, IV fluids and started on amiodarone drips and Lovenox in the emergency room. D-dimer was elevated, therefore CTA of the chest was done which showed negative for pulmonary embolism, emphysematous changes with small pleural effusion. Also there is focal scattered versus speculated nodule in the right upper lobe we ordered stat CT of the brain and CT of the chest to rule out pulmonary embolism given his hypotension, tachycardia and tachypnea with elevated d-dimer. Also with mild hypoxia suspected. However patient confused per staff when he came in and could not be started on heparin drip before we rule out intracranial bleed before CT of the brain is also ordered with CT of the chest. Both tests came back negative 08/19/2021 Patient today during morning rounds found obtunded and responsive and unarousable with impending respiratory failure and he was transferred to the intensive care unit he got intubated and placed on mechanical ventilation with pulmonary/critical care team following closely and held with and management. His WBCs 11.6, hemoglobin 8.6, creatinine 1.4. chest x-ray sewn bilateral worsening infiltrates especially in the lower zones mood versus worsening infection His continued counseling atrial 60 mg, antibiotic form of Zosyn and amiodarone drip for developing A. fib and RVR. High-dose tenderness on hold 08/20/2021 Patient remains in the ICU intubated and sedated, he still tachypneic with respiratory rate of 28, his PEEP of 8.0 today. His hemoglobin is 7.1, creatinine 1.4. Remains on IV Solu-Medrol and Zosyn. Also is on amiodarone drip, and normal saline at 100 mL per hour. He still has bilateral leg ulceration with dried surface. Ultrasound showing evidence of chronic left DVT, currently he is on Lovenox 50 mg twice daily review of system: N/a Active Medications Generic Name Dose Route Start Last Admin Trade Name Freq PRN Reason Stop Dose Admin Acetaminophen 650 mg 08/17/21 17:59 Acetaminophen Tab 325 Mg Tab PO Q4H PRN Pain or Fever > 100.5 Albuterol/Ipratropium 3 ml 08/17/21 16:55 Ipratropium-Albuterol 3 Ml Neb INHALATION RT-Q4H PRN Shortness Of Breath Or Wheezing Albuterol/Ipratropium 3 ml 08/19/21 12:00 08/20/21 16:07 Ipratropium-Albuterol 3 Ml Neb INHALATION 3 ml RT-Q4H [facility] Administration Amiodarone HCl 200 mg 08/20/21 09:00 08/20/21 08:03 Amiodarone 200 Mg Tab PO 200 mg BID [facility] Administration Budesonide 1 mg 08/18/21 20:00 08/20/21 07:49 Budesonide 1 Mg/2 Ml Nebu INHALATION 1 mg RT-BID [facility] Administration Chlorhexidine Gluconate 15 ml 08/19/21 21:00 08/20/21 08:04 Chlorhexidine Gluconate 15 Ml Cup MUCOUS MEM 15 ml BID [facility] Administration Enoxaparin Sodium 50 mg 08/18/21 21:00 08/20/21 08:04 Enoxaparin 60 Mg/0.6 Ml Syringe SQ 50 mg Q12HR [facility] Administration Famotidine 20 mg 08/20/21 09:00 08/20/21 08:04 Famotidine 20 Mg Tab PO 20 mg DAILY [facility] Administration Formoterol Fumarate 20 mcg 08/18/21 20:00 08/20/21 07:49 Formoterol Fumarate 20 Mcg/2 Ml Nebu INHALATION 20 mcg RT-BID [facility] Administration Hydromorphone HCl 1 mg 08/19/21 11:30 08/20/21 13:40 Hydromorphone 1 Mg/Ml 1 Ml Syringe IVP 1 mg Q2HR PRN Administration Pain Propofol 1,000 mg/ IV Solution 100 mls @ 1.629 mls/hr 08/19/21 09:45 08/20/21 16:37 IV 75 mcg/kg/min .Q24H [facility] 24.435 mls/hr Administration Protocol 5 MCG/KG/MIN Piperacillin Sod/Tazobactam 100 mls @ 25 mls/hr 08/19/21 16:00 08/20/21 15:46 Sod 3.375 gm/ Sodium Chloride IVPB 25 mls/hr Q8HR [facility] Administration Protocol Sodium Chloride 1,000 mls @ 100 mls/hr 08/20/21 08:00 08/20/21 08:00 Saline 0.9% IV 100 mls/hr .Q10H [facility] Administration Insulin Aspart 0 unit 08/20/21 00:00 08/20/21 11:49 Insulin Aspart (Novolog) 100 Unit/Ml Vial SQ 1 unit Q6HR [facility] Administration Protocol Levothyroxine Sodium 50 mcg 08/18/21 05:00 08/20/21 06:04 Levothyroxine 50 Mcg Tab PO 50 mcg DAILY@0500 [facility] Administration Methylprednisolone Sodium Succinate 60 mg 08/17/21 18:00 08/20/21 11:49 Methylprednisolone Sod Succi 125 Mg/2 Ml Vial IV 60 mg Q6HR [facility] Administration Metoprolol Tartrate 25 mg 08/18/21 09:45 08/20/21 08:04 Metoprolol Tartrate 25 Mg Tab PO 25 mg BID [facility] Administration Naloxone HCl 0.2 mg 08/19/21 09:46 Naloxone 0.4 Mg/Ml 1 Ml Vial IV Q2M PRN Opioid Reversal Tramadol HCl 50 mg 08/17/21 17:59 Tramadol 50 Mg Tab PO Q6H PRN Pain Objective - Vital Signs Vital signs: Vital Signs Temp 98.4 F 08/20/21 08:00 Pulse 76 08/20/21 10:00 Resp 25 H 08/20/21 10:00 BP 123/58 08/20/21 10:00 Pulse Ox 97 08/20/21 10:00 FiO2 40 08/20/21 08:00 Intake & Output 08/19/21 08/20/21 08/20/21 18:59 06:59 18:59 Intake Total 8086.025 7212.967 748.147 Output Total 410 495 155 Balance 9343.249 4381.967 593.147 Weight 54.3 kg Intake: IV 1700 1200 400 Sodium Chloride 0.9% 1, 700 1200 300 000 ml @ 100 mls/hr IV . Q10H [facility] Rx#:[id number] Sodium Chloride 0.9% 1, 1000 000 ml @ 999 mls/hr IV . Q1H1M [facility] Rx#:[id number] ns 100 Intake, IV Titration 104.745 497.967 198.147 Amount Amiodarone 450 mg In 250 Dextrose 5% in Water 250 ml @ 0.5 MG/MIN 16.667 mls/hr IV .Q15H [facility] Rx#: [id number] Piperacillin-Tazobactam 3 100 .375 gm In Sodium Chloride 0.9% 100 ml @ 25 mls/hr IVPB Q8HR [facility] Rx# :[id number] propofoL 1,000 mg In 104.745 247.967 98.147 Empty Bag 1 bag @ 5 MCG/ KG/MIN 1.629 mls/hr IV . Q24H [facility] Rx#:[id number] Tube Feeding 60 Other 90 Output: Urine 410 495 155 Other: Voiding Method Indwelling Catheter Indwelling Catheter Indwelling Catheter ABP, PAP, CO, CI - Last Documented Arterial Blood Pressure 114/47 - Exam GENERAL: The patient is intubated and sedated HEENT: Pupils are round and equally reacting to light. EOMI. No scleral icterus. No conjunctival pallor. Normocephalic, atraumatic. No pharyngeal erythema. No thyromegaly. CARDIOVASCULAR: S1 and S2 present. No murmurs, rubs, or gallops. -PULMONARY: Chest is clear to auscultation, Decreased air entry with scattered wheezing and bilateral crepitation ABDOMEN: Soft, nontender, nondistended, normoactive bowel sounds. No palpable organomegaly. MUSCULOSKELETAL: No joint swelling or deformity. -EXTREMITIES: No cyanosis, clubbing, or pedal edema. Multiple bilateral leg ulcers including both heels and right lateral leg. No evidence of overt surrounding cellulitis NEUROLOGICAL: Gross neurological examination did not reveal any focal deficits. SKIN: No rashes. no petechiae. - Labs CBC & Chem 7: 08/20/21 05:45 08/20/21 05:45 Labs: Abnormal Lab Results - Last 24 Hours (Table) 08/19/21 08/19/21 08/19/21 Range/Units 10:37 10:37 10:37 WBC 11.6 H (3.8-10.6) k/uL RBC 2.86 L (4.30-5.90) m/uL Hgb 8.6 L (13.0-17.5) gm/dL Hct 28.8 L (39.0-53.0) % MCV 100.9 H (80.0-100.0) fL MCHC 29.9 L (31.0-37.0) g/dL RDW 18.5 H (11.5-15.5) % Neutrophils # 11.0 H (1.3-7.7) k/uL Lymphocytes # 0.3 L (1.0-4.8) k/uL ABG pH (7.35-7.45) ABG pCO2 (35-45) mmHg ABG pO2 (83-108) mmHg ABG Total CO2 (19-24) mmol/L ABG O2 Saturation (94-97) % Chloride 113 H (98-107) mmol/L Carbon Dioxide (22-30) mmol/L BUN 44 H (9-20) mg/dL Creatinine 1.42 H (0.66-1.25) mg/dL Glucose 134 H (74-99) mg/dL POC Glucose (mg/dL) (75-99) mg/dL Calcium 7.9 L (8.4-10.2) mg/dL Total Bilirubin 0.1 L (0.2-1.3) mg/dL ALT 195 H (4-49) U/L Total Protein 5.3 L (6.3-8.2) g/dL Albumin 2.8 L (3.5-5.0) g/dL Procalcitonin 0.41 H (0.02-0.09) ng/mL 08/19/21 08/19/21 08/19/21 Range/Units 10:38 11:58 18:20 WBC (3.8-10.6) k/uL RBC (4.30-5.90) m/uL Hgb (13.0-17.5) gm/dL Hct (39.0-53.0) % MCV (80.0-100.0) fL MCHC (31.0-37.0) g/dL RDW (11.5-15.5) % Neutrophils # (1.3-7.7) k/uL Lymphocytes # (1.0-4.8) k/uL ABG pH 7.19 L* (7.35-7.45) ABG pCO2 65 H (35-45) mmHg ABG pO2 124 H (83-108) mmHg ABG Total CO2 27 H (19-24) mmol/L ABG O2 Saturation 99.0 H (94-97) % Chloride (98-107) mmol/L Carbon Dioxide (22-30) mmol/L BUN (9-20) mg/dL Creatinine (0.66-1.25) mg/dL Glucose (74-99) mg/dL POC Glucose (mg/dL) 121 H 114 H (75-99) mg/dL Calcium (8.4-10.2) mg/dL Total Bilirubin (0.2-1.3) mg/dL ALT (4-49) U/L Total Protein (6.3-8.2) g/dL Albumin (3.5-5.0) g/dL Procalcitonin (0.02-0.09) ng/mL 08/20/21 08/20/21 08/20/21 Range/Units 00:00 05:45 05:45 WBC (3.8-10.6) k/uL RBC 2.41 L (4.30-5.90) m/uL Hgb 7.1 L D (13.0-17.5) gm/dL Hct 24.2 L (39.0-53.0) % MCV 100.7 H (80.0-100.0) fL MCHC 29.2 L (31.0-37.0) g/dL RDW 18.5 H (11.5-15.5) % Neutrophils # 7.8 H (1.3-7.7) k/uL Lymphocytes # 0.2 L (1.0-4.8) k/uL ABG pH (7.35-7.45) ABG pCO2 (35-45) mmHg ABG pO2 (83-108) mmHg ABG Total CO2 (19-24) mmol/L ABG O2 Saturation (94-97) % Chloride 116 H (98-107) mmol/L Carbon Dioxide 21 L (22-30) mmol/L BUN 44 H (9-20) mg/dL Creatinine 1.44 H (0.66-1.25) mg/dL Glucose 156 H (74-99) mg/dL POC Glucose (mg/dL) 152 H (75-99) mg/dL Calcium 7.3 L (8.4-10.2) mg/dL Total Bilirubin (0.2-1.3) mg/dL ALT (4-49) U/L Total Protein (6.3-8.2) g/dL Albumin (3.5-5.0) g/dL Procalcitonin (0.02-0.09) ng/mL 08/20/21 08/20/21 Range/Units 05:51 06:09 WBC (3.8-10.6) k/uL RBC (4.30-5.90) m/uL Hgb (13.0-17.5) gm/dL Hct (39.0-53.0) % MCV (80.0-100.0) fL MCHC (31.0-37.0) g/dL RDW (11.5-15.5) % Neutrophils # (1.3-7.7) k/uL Lymphocytes # (1.0-4.8) k/uL ABG pH 7.32 L (7.35-7.45) ABG pCO2 (35-45) mmHg ABG pO2 113 H (83-108) mmHg ABG Total CO2 (19-24) mmol/L ABG O2 Saturation 99.2 H (94-97) % Chloride (98-107) mmol/L Carbon Dioxide (22-30) mmol/L BUN (9-20) mg/dL Creatinine (0.66-1.25) mg/dL Glucose (74-99) mg/dL POC Glucose (mg/dL) 182 H (75-99) mg/dL Calcium (8.4-10.2) mg/dL Total Bilirubin (0.2-1.3) mg/dL ALT (4-49) U/L Total Protein (6.3-8.2) g/dL Albumin (3.5-5.0) g/dL Procalcitonin (0.02-0.09) ng/mL Microbiology - Last 24 Hours (Table) 08/19/21 12:06 Gram Stain - Preliminary Sputum Sputum Culture - Preliminary 08/18/21 06:04 Blood Culture - Preliminary Blood No Growth after 48 hours Assessment and Plan Assessment: Acute hypoxic respiratory failure requiring intubation and mechanical ventilation COPD with exacerbation Multiple pressure ulcers with suspected infection Moderate to severe calories and protein malnutrition multiple leg wounds focal scar versus speculated nodule in the right upper lobe History of hypertension, currently he is hypotensive Hyperlipidemia Dehydration Chronic altered mental status with some elements of acute related to metabolic encephalopathy. 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 cardiology consult Pulmonary chronic left DVTLabs and medication were reviewed.. Continue same treatment. Continue with symptomatic treatment. Resume home medication. Monitor lytes and vitals. DVT and GI prophylaxis. Further recommendations d epends on the clinical course of the patient DVT prophylaxis: Subcutaneous LovenoxGI Prophylaxis: Pepcid PT/OT: Pending Prognosis is guarded CODE STATUS Full code per per staff
[2021-08-20 17:32] LABS: Glucose,Whole Blood 125 mg/dL (75-99)
--- NOTE | 2021-08-20 19:54 | P.PN ---
Subjective Progress Note Date: 08/19/21 Principal diagnosis: Possible aspiration pneumonia and multiple pressure ulcers She is a 71-year-old male with a past medical history significant for end-stage COPD admitted to the hospital with weakness and some shortness of breath patient did have worsening of his respiratory status requiring intubation and admission to the ICU, patient also have multiple pressure ulcers. On today's evaluation 08/19/2021, the patient is afebrile, patient is hemodynamically stable, patient is currently on 60% FiO2, no significant purulent secretion through the ET, no vomiting no diarrhea or any other changes reported by the nursing staff Objective - Vital Signs Vital signs: Vital Signs Temp 97.7 F 08/19/21 00:00 Pulse 81 08/19/21 12:19 Resp 18 08/19/21 04:00 BP 147/64 08/19/21 04:00 Pulse Ox 75 L 08/19/21 09:00 FiO2 80 08/19/21 11:50 Intake & Output 08/18/21 08/19/21 08/19/21 18:59 06:59 18:59 Intake Total 1049.6 1200 1205.104 Output Total 325 610 280 Balance 724.6 590 925.104 Weight 54.3 kg 54.3 kg Intake: IV 1200 Sodium Chloride 0.9% 1, 200 000 ml @ 100 mls/hr IV . Q10H [facility] Rx#:[id number] Sodium Chloride 0.9% 1, 1000 000 ml @ 999 mls/hr IV . Q1H1M [facility] Rx#:[id number] Intake, IV Titration 1049.6 1200 5.104 Amount Amiodarone 360 mg In 133.2 Dextrose 5% in Water 200 ml @ 1 MG/MIN 33.333 mls/ hr IV .Q6H [facility] Rx#: [id number] Amiodarone 450 mg In 66.4 Dextrose 5% in Water 250 ml @ 0.5 MG/MIN 16.667 mls/hr IV .Q15H [facility] Rx#: [id number] Clindamycin 300 mg In 50 Dextrose 5% in Water 50 ml @ 50 mls/hr IVPB Q8HR [facility] Rx#:[id number] Sodium Chloride 0.9% 1, 800 1200 000 ml @ 100 mls/hr IV . Q10H [facility] Rx#:[id number] propofoL 1,000 mg In 5.104 Empty Bag 1 bag @ 5 MCG/ KG/MIN 1.629 mls/hr IV . Q24H [facility] Rx#:[id number] Output: Urine 325 610 280 Other: Voiding Method Indwelling Catheter Indwelling Catheter - Exam GENERAL DESCRIPTION: An elderly male intubated on the vent RESPIRATORY SYSTEM: Unlabored breathing , decreased breath sounds at bases HEART: S1 S2 regular rate and rhythm , ABDOMEN: Soft , no tenderness EXTREMITIES: No edema feet - Labs CBC & Chem 7: 08/20/21 05:45 08/20/21 05:45 Labs: Abnormal Lab Results - Last 24 Hours (Table) 08/18/21 08/18/21 08/19/21 Range/Units 16:34 20:25 06:28 WBC (3.8-10.6) k/uL RBC (4.30-5.90) m/uL Hgb (13.0-17.5) gm/dL Hct (39.0-53.0) % MCV (80.0-100.0) fL MCHC (31.0-37.0) g/dL RDW (11.5-15.5) % Neutrophils # (1.3-7.7) k/uL Lymphocytes # (1.0-4.8) k/uL ABG pH (7.35-7.45) ABG pCO2 (35-45) mmHg ABG pO2 (83-108) mmHg ABG Total CO2 (19-24) mmol/L ABG O2 Saturation (94-97) % Chloride (98-107) mmol/L BUN (9-20) mg/dL Creatinine (0.66-1.25) mg/dL Glucose (74-99) mg/dL POC Glucose (mg/dL) 112 H 130 H 164 H (75-99) mg/dL Calcium (8.4-10.2) mg/dL Total Bilirubin (0.2-1.3) mg/dL ALT (4-49) U/L Total Protein (6.3-8.2) g/dL Albumin (3.5-5.0) g/dL 08/19/21 08/19/21 08/19/21 Range/Units 09:48 10:37 10:37 WBC 11.6 H (3.8-10.6) k/uL RBC 2.86 L (4.30-5.90) m/uL Hgb 8.6 L (13.0-17.5) gm/dL Hct 28.8 L (39.0-53.0) % MCV 100.9 H (80.0-100.0) fL MCHC 29.9 L (31.0-37.0) g/dL RDW 18.5 H (11.5-15.5) % Neutrophils # 11.0 H (1.3-7.7) k/uL Lymphocytes # 0.3 L (1.0-4.8) k/uL ABG pH (7.35-7.45) ABG pCO2 (35-45) mmHg ABG pO2 (83-108) mmHg ABG Total CO2 (19-24) mmol/L ABG O2 Saturation (94-97) % Chloride 113 H (98-107) mmol/L BUN 44 H (9-20) mg/dL Creatinine 1.42 H (0.66-1.25) mg/dL Glucose 134 H (74-99) mg/dL POC Glucose (mg/dL) 142 H (75-99) mg/dL Calcium 7.9 L (8.4-10.2) mg/dL Total Bilirubin 0.1 L (0.2-1.3) mg/dL ALT 195 H (4-49) U/L Total Protein 5.3 L (6.3-8.2) g/dL Albumin 2.8 L (3.5-5.0) g/dL 08/19/21 08/19/21 Range/Units 10:38 11:58 WBC (3.8-10.6) k/uL RBC (4.30-5.90) m/uL Hgb (13.0-17.5) gm/dL Hct (39.0-53.0) % MCV (80.0-100.0) fL MCHC (31.0-37.0) g/dL RDW (11.5-15.5) % Neutrophils # (1.3-7.7) k/uL Lymphocytes # (1.0-4.8) k/uL ABG pH 7.19 L* (7.35-7.45) ABG pCO2 65 H (35-45) mmHg ABG pO2 124 H (83-108) mmHg ABG Total CO2 27 H (19-24) mmol/L ABG O2 Saturation 99.0 H (94-97) % Chloride (98-107) mmol/L BUN (9-20) mg/dL Creatinine (0.66-1.25) mg/dL Glucose (74-99) mg/dL POC Glucose (mg/dL) 121 H (75-99) mg/dL Calcium (8.4-10.2) mg/dL Total Bilirubin (0.2-1.3) mg/dL ALT (4-49) U/L Total Protein (6.3-8.2) g/dL Albumin (3.5-5.0) g/dL Microbiology - Last 24 Hours (Table) 08/18/21 06:04 Blood Culture - Preliminary Blood No Growth after 24 hours Assessment and Plan (1) Pneumonia Current Visit: Yes Status: Acute Code(s): J18.9 - PNEUMONIA, UNSPECIFIED ORGANISM SNOMED Code(s): 679401486 Plan: 1patient presented to hospital with increasing shortness of breath could be related to her underlying cardiac etiology, patient subsequently did have worsening of his respiratory status requiring intubation and concern for possible aspiration. 2sputum culture has been obtained those will be followed . 3patient continue Zosyn antibiotic will be adjusted further on the basis of culture and clinical response 4-Medihoney to the left thigh wound with a slough rest of the wound with a dry necrotic area to keep them dry and of the pressure. Time with Patient: Less than 30
--- NOTE | 2021-08-20 19:55 | P.PN ---
Subjective Progress Note Date: 08/20/21 Principal diagnosis: Possible aspiration pneumonia and multiple pressure ulcers She is a 71-year-old male with a past medical history significant for end-stage COPD admitted to the hospital with weakness and some shortness of breath patient did have worsening of his respiratory status requiring intubation and admission to the ICU, patient also have multiple pressure ulcers. On today's evaluation 08/20/2021, the patient remains to be afebrile, patient is hemodynamically stable, patient is down to 40 % FiO2, no significant purulent secretion through the ET, no diarrhea or any other changes reported by the nursing staff Objective - Vital Signs Vital signs: Vital Signs Temp 98.2 F 08/20/21 12:00 Pulse 78 08/20/21 16:13 Resp 28 H 08/20/21 15:00 BP 103/51 08/20/21 15:00 Pulse Ox 98 08/20/21 15:00 FiO2 35 08/20/21 16:08 Intake & Output 08/19/21 08/20/21 08/20/21 18:59 06:59 18:59 Intake Total 1100.226 4767.967 1378.147 Output Total 410 495 325 Balance 6024.239 6276.967 1053.147 Weight 54.3 kg Intake: IV 1700 1200 700 Sodium Chloride 0.9% 1, 700 1200 300 000 ml @ 100 mls/hr IV . Q10H [facility] Rx#:[id number] Sodium Chloride 0.9% 1, 1000 000 ml @ 999 mls/hr IV . Q1H1M [facility] Rx#:[id number] ns 400 Intake, IV Titration 104.745 497.967 398.147 Amount Amiodarone 450 mg In 250 Dextrose 5% in Water 250 ml @ 0.5 MG/MIN 16.667 mls/hr IV .Q15H [facility] Rx#: [id number] Piperacillin-Tazobactam 3 100 .375 gm In Sodium Chloride 0.9% 100 ml @ 25 mls/hr IVPB Q8HR [facility] Rx# :[id number] Sodium Chloride 0.9% 1, 100 000 ml @ 100 mls/hr IV . Q10H [facility] Rx#:[id number] propofoL 1,000 mg In 104.745 247.967 198.147 Empty Bag 1 bag @ 5 MCG/ KG/MIN 1.629 mls/hr IV . Q24H [facility] Rx#:[id number] Tube Feeding 160 Other 120 Output: Urine 410 495 325 Other: Voiding Method Indwelling Catheter Indwelling Catheter Indwelling Catheter ABP, PAP, CO, CI - Last Documented Arterial Blood Pressure 113/68 - Exam GENERAL DESCRIPTION: An elderly male intubated on the vent RESPIRATORY SYSTEM: Unlabored breathing , decreased breath sounds at bases HEART: S1 S2 regular rate and rhythm , ABDOMEN: Soft , no tenderness EXTREMITIES: No edema feet - Labs CBC & Chem 7: 08/20/21 05:45 08/20/21 05:45 Labs: Abnormal Lab Results - Last 24 Hours (Table) 08/19/21 08/19/21 08/20/21 Range/Units 10:37 18:20 00:00 RBC (4.30-5.90) m/uL Hgb (13.0-17.5) gm/dL Hct (39.0-53.0) % MCV (80.0-100.0) fL MCHC (31.0-37.0) g/dL RDW (11.5-15.5) % Neutrophils # (1.3-7.7) k/uL Lymphocytes # (1.0-4.8) k/uL ABG pH (7.35-7.45) ABG pO2 (83-108) mmHg ABG O2 Saturation (94-97) % Chloride (98-107) mmol/L Carbon Dioxide (22-30) mmol/L BUN (9-20) mg/dL Creatinine (0.66-1.25) mg/dL Glucose (74-99) mg/dL POC Glucose (mg/dL) 114 H 152 H (75-99) mg/dL Calcium (8.4-10.2) mg/dL Procalcitonin 0.41 H (0.02-0.09) ng/mL 08/20/21 08/20/21 08/20/21 Range/Units 05:45 05:45 05:51 RBC 2.41 L (4.30-5.90) m/uL Hgb 7.1 L D (13.0-17.5) gm/dL Hct 24.2 L (39.0-53.0) % MCV 100.7 H (80.0-100.0) fL MCHC 29.2 L (31.0-37.0) g/dL RDW 18.5 H (11.5-15.5) % Neutrophils # 7.8 H (1.3-7.7) k/uL Lymphocytes # 0.2 L (1.0-4.8) k/uL ABG pH (7.35-7.45) ABG pO2 (83-108) mmHg ABG O2 Saturation (94-97) % Chloride 116 H (98-107) mmol/L Carbon Dioxide 21 L (22-30) mmol/L BUN 44 H (9-20) mg/dL Creatinine 1.44 H (0.66-1.25) mg/dL Glucose 156 H (74-99) mg/dL POC Glucose (mg/dL) 182 H (75-99) mg/dL Calcium 7.3 L (8.4-10.2) mg/dL Procalcitonin (0.02-0.09) ng/mL 08/20/21 08/20/21 Range/Units 06:09 11:38 RBC (4.30-5.90) m/uL Hgb (13.0-17.5) gm/dL Hct (39.0-53.0) % MCV (80.0-100.0) fL MCHC (31.0-37.0) g/dL RDW (11.5-15.5) % Neutrophils # (1.3-7.7) k/uL Lymphocytes # (1.0-4.8) k/uL ABG pH 7.32 L (7.35-7.45) ABG pO2 113 H (83-108) mmHg ABG O2 Saturation 99.2 H (94-97) % Chloride (98-107) mmol/L Carbon Dioxide (22-30) mmol/L BUN (9-20) mg/dL Creatinine (0.66-1.25) mg/dL Glucose (74-99) mg/dL POC Glucose (mg/dL) 137 H (75-99) mg/dL Calcium (8.4-10.2) mg/dL Procalcitonin (0.02-0.09) ng/mL Microbiology - Last 24 Hours (Table) 08/19/21 12:06 Gram Stain - Preliminary Sputum Sputum Culture - Preliminary 08/18/21 06:04 Blood Culture - Preliminary Blood No Growth after 48 hours Assessment and Plan (1) Pneumonia Current Visit: Yes Status: Acute Code(s): J18.9 - PNEUMONIA, UNSPECIFIED ORGANISM SNOMED Code(s): 290125481 Plan: 1patient presented to hospital with increasing shortness of breath could be related to her underlying cardiac etiology, patient subsequently did have worsening of his respiratory status requiring intubation and concern for possible aspiration. 2sputum culture has been obtained which are currently pending 3patient to continue Zosyn while waiting for the culture to be finalized 4-Medihoney to the left thigh wound with a slough rest of the wound with a dry necrotic area to keep them dry and of the pressure. Time with Patient: Less than 30
[2021-08-20 23:44] LABS: Glucose,Whole Blood 167 mg/dL (75-99)
[2021-08-21] MEDS: SODIUM CHLORIDE 0.9% 1,000 ML IV SCH ×2 (00:52→11:37)
[2021-08-21] MEDS: IPRATROPIUM-ALBUTEROL 3 ML NEB INHALATION SCH ×6 (01:30→20:17)
[2021-08-21] MEDS: HYDROmorphone 1 MG/ML 1 ML SYRINGE IVP PRN ×3 (04:31→20:32)
[2021-08-21 05:00] LABS: Anisocytosis Slight; Basophils % (A) 0 %; Eosinophils % (A) 0 %; HCT 25.5 % (39.0-53.0); HGB 7.5 gm/dL (13.0-17.5); Hypochromasia Marked; Lymphocytes # (A) 0.2 k/uL (1.0-4.8); Lymphocytes % (A) 3 %; MCH 29.3 pg (25.0-35.0); MCHC 29.5 g/dL (31.0-37.0); MCV 99.3 fL (80.0-100.0); Macrocytosis Slight; Monocytes # (A) 0.2 k/uL (0-1.0); Monocytes % (A) 3 %; Neutrophils # (A) 6.2 k/uL (1.3-7.7); Neutrophils % (A) 94 %; Platelet Count 163 k/uL (150-450); RBC 2.57 m/uL (4.30-5.90); RDW 18.7 % (11.5-15.5); WBC 6.6 k/uL (3.8-10.6)
[2021-08-21 05:37] LABS: Calcium 7.3 mg/dL (8.4-10.2); Potassium 4.2 mmol/L (3.5-5.1)
[2021-08-21 05:51] LABS: ABG Base Excess -5.1 mmol/L; ABG HCO3 21 mmol/L (21-25); ABG Oxygen Saturation 98.5 % (94-97); ABG PCO2 42 mmHg (35-45); ABG PH 7.31 (7.35-7.45); ABG PO2 108 mmHg (83-108); ABG TCO2 23 mmol/L (19-24); Allen Test Performed? Yes
[2021-08-21 06:12] LABS: Glucose,Whole Blood 202 mg/dL (75-99)
[2021-08-21] MEDS: INSULIN ASPART (NovoLOG) 100 UNIT/ML VIAL SQ SCH ×3 (06:15→17:36)
[2021-08-21] MEDS: methylPREDNISolone SOD SUCCI 125 MG/2 ML VIAL IV SCH ×3 (06:16→17:36)
[2021-08-21] MEDS: LEVOTHYROXINE 50 MCG TAB PO SCH (06:18)
--- NOTE | 2021-08-21 06:57 | XR ---
EXAMINATION TYPE: XR chest 1V portable DATE OF EXAM: 08/21/2021 COMPARISON: 08/20/2021 HISTORY: Tube placement TECHNIQUE: Single frontal view of the chest is obtained. FINDINGS: ET tube is 6.3 cm above the josette. There is an NG tube within the stomach. No change in t he central venous catheter tip in the SVC/R junction. There is COPD with hyperinflation lungs and flattening the diaphragms. There are small bilateral pleu ral effusions unchanged compared to previous. There is no pneumothorax. There is a small focal opacity left lung base possibly representing a small pneumonic infiltrate. The osseous structures are intact IMPRESSION: ET tube 6.3 cm above the josette. Otherwise no significant interval change.
[2021-08-21] MEDS: FORMOTEROL FUMARATE 20 MCG/2 ML NEBU INHALATION SCH ×2 (07:44→20:17)
[2021-08-21] MEDS: BUDESONIDE 1 MG/2 ML NEBU INHALATION SCH ×2 (07:44→20:17)
[2021-08-21] MEDS: PIPERACILLIN-TAZOBACTAM 3.375 GM in SODIUM CHLORIDE 0.9% 100 ML IVPB SCH ×2 (08:21→17:35)
[2021-08-21] MEDS: FAMOTIDINE 20 MG TAB PO SCH (08:22)
[2021-08-21] MEDS: CHLORHEXIDINE GLUCONATE 15 ML CUP MUCOUS MEM SCH ×2 (08:22→20:15)
[2021-08-21] MEDS: ENOXAPARIN 60 MG/0.6 ML SYRINGE SQ SCH ×2 (08:22→20:15)
[2021-08-21] MEDS: AMIODARONE 200 MG TAB PO SCH ×2 (08:22→20:15)
[2021-08-21] MEDS: METOPROLOL TARTRATE 25 MG TAB PO SCH ×2 (08:22→20:15)
[2021-08-21 11:22] LABS: Glucose,Whole Blood 147 mg/dL (75-99)
--- NOTE | 2021-08-21 12:35 | P.PN ---
Subjective Progress Note Date: 08/21/21 This patient with history of severe COPD who was transferred to intensive care unit because of respiratory failure requiring intubation. Cardiac consult was requested because of atrial fibrillation and flutter. Patient was initiated on IV amiodarone. Patient converted back to sinus rhythm and has been maintaining. Patient is still intubated and sedated. No other cardiac issues at this time. Recent echocardiogram showed an ejection fraction of 50% is moderate mitral regurgitation and also mild to moderate gradient across the aortic valve. 08/21/2021: This patient is in intensive care unit for exacerbation of COPD intubated and sedated. Patient is back in sinus rhythm. Patient was in atrial fibrillation. He is on by mouth amiodarone along with metoprolol 25 mg by mouth twice a day. His blood pressure is well maintained. We'll continue current medical therapy. Rest of the management as for the assistance coordinator Objective - Vital Signs Vital signs: Vital Signs Temp 98.4 F 08/21/21 12:00 Pulse 82 08/21/21 12:00 Resp 28 H 08/21/21 12:00 BP 142/63 08/21/21 12:00 Pulse Ox 98 08/21/21 12:00 FiO2 35 08/21/21 12:00 Intake & Output 08/20/21 08/21/21 08/21/21 18:59 06:59 18:59 Intake Total 2093.851 2147.720 1078.606 Output Total 445 550 405 Balance 6198.211 8098.720 673.606 Weight 56.5 kg Intake: IV 700 600 Piperacillin-Tazobactam 3 100 .375 gm In Sodium Chloride 0.9% 100 ml @ 25 mls/hr IVPB Q8HR [facility] Rx# :[id number] Sodium Chloride 0.9% 1, 300 000 ml @ 100 mls/hr IV . Q10H [facility] Rx#:[id number] Sodium Chloride 0.9% 1, 500 000 ml @ 100 mls/hr IV . Q10H [facility] Rx#:[id number] ns 400 Intake, IV Titration 202.448 8088.720 202.606 Amount Piperacillin-Tazobactam 3 200 100 .375 gm In Sodium Chloride 0.9% 100 ml @ 25 mls/hr IVPB Q8HR [facility] Rx# :[id number] Sodium Chloride 0.9% 1, 500 1200 100 000 ml @ 100 mls/hr IV . Q10H [facility] Rx#:[id number] propofoL 1,000 mg In 293.851 343.720 102.606 Empty Bag 1 bag @ 5 MCG/ KG/MIN 1.629 mls/hr IV . Q24H [facility] Rx#:[id number] Tube Feeding 280 444 216 Other 120 60 60 Output: Urine 445 550 405 Other: Voiding Method Indwelling Catheter Indwelling Catheter Indwelling Catheter ABP, PAP, CO, CI - Last Documented Arterial Blood Pressure 152/47 - Exam GENERAL EXAM: Patient is intubated and sedated HEENT: Normocephalic. Normal reaction of pupils, equal size, normal range of extraocular motion. No erythema or exudates in the throat. NECK: No masses, no nuchal rigidity. CHEST: No chest wall deformity. LUNGS: Diminished breath sounds HEART: [Distant heart sounds ABDOMEN: No hepatosplenomegaly, normal bowel sounds, no guarding or rigidity. SKIN: No rashes CENTRAL NERVOUS SYSTEM: Deferred EXTREMITIES: [No cyanosis, clubbing or edema.] - Labs CBC & Chem 7: 08/21/21 04:27 08/21/21 04:27 Labs: Abnormal Lab Results - Last 24 Hours (Table) 08/20/21 08/20/21 08/21/21 Range/Units 17:30 23:32 04:27 RBC 2.57 L (4.30-5.90) m/uL Hgb 7.5 L (13.0-17.5) gm/dL Hct 25.5 L (39.0-53.0) % MCHC 29.5 L (31.0-37.0) g/dL RDW 18.7 H (11.5-15.5) % Lymphocytes # 0.2 L (1.0-4.8) k/uL ABG pH (7.35-7.45) ABG O2 Saturation (94-97) % Chloride (98-107) mmol/L Carbon Dioxide (22-30) mmol/L BUN (9-20) mg/dL Creatinine (0.66-1.25) mg/dL Glucose (74-99) mg/dL POC Glucose (mg/dL) 125 H 167 H (75-99) mg/dL Calcium (8.4-10.2) mg/dL 08/21/21 08/21/21 08/21/21 Range/Units 04:27 05:46 06:06 RBC (4.30-5.90) m/uL Hgb (13.0-17.5) gm/dL Hct (39.0-53.0) % MCHC (31.0-37.0) g/dL RDW (11.5-15.5) % Lymphocytes # (1.0-4.8) k/uL ABG pH 7.31 L (7.35-7.45) ABG O2 Saturation 98.5 H (94-97) % Chloride 117 H (98-107) mmol/L Carbon Dioxide 21 L (22-30) mmol/L BUN 39 H (9-20) mg/dL Creatinine 1.26 H (0.66-1.25) mg/dL Glucose 202 H (74-99) mg/dL POC Glucose (mg/dL) 202 H (75-99) mg/dL Calcium 7.3 L (8.4-10.2) mg/dL 08/21/21 Range/Units 11:20 RBC (4.30-5.90) m/uL Hgb (13.0-17.5) gm/dL Hct (39.0-53.0) % MCHC (31.0-37.0) g/dL RDW (11.5-15.5) % Lymphocytes # (1.0-4.8) k/uL ABG pH (7.35-7.45) ABG O2 Saturation (94-97) % Chloride (98-107) mmol/L Carbon Dioxide (22-30) mmol/L BUN (9-20) mg/dL Creatinine (0.66-1.25) mg/dL Glucose (74-99) mg/dL POC Glucose (mg/dL) 147 H (75-99) mg/dL Calcium (8.4-10.2) mg/dL Microbiology - Last 24 Hours (Table) 08/18/21 06:04 Blood Culture - Preliminary Blood No Growth after 72 hours 08/19/21 12:06 Gram Stain - Preliminary Sputum Sputum Culture - Preliminary Assessment and Plan (1) Atrial flutter Current Visit: Yes Status: Acute Code(s): I48.92 - UNSPECIFIED ATRIAL FLU TTER SNOMED Code(s): 4626943 (2) COPD exacerbation Current Visit: Yes Status: Acute Code(s): J44.1 - CHRONIC OBSTRUCTIVE PULMONARY DISEASE W (ACUTE) EXACERBATION SNOMED Code(s): 828321906 Plan: Patient is maintaining sinus rhythm. Currently on amiodarone 200 mg by mouth twice a day and metoprolol 25 mg by mouth twice a day. Continue current medical therapy. After 4 days, the dose of the amiodarone could be cut back to once daily. Will follow.
--- NOTE | 2021-08-21 12:51 | P.PN ---
Subjective Progress Note Date: 08/21/21 71-year-old male patient with known history of severe end-stage COPD, with a baseline FEV1 of 0.67 L or 25% predicted as November 2020 PFT, on home oxygen patient usually wears 3 L of oxygen on a regular basis, ex-smoker, chronic dyspnea, hypertension, hyperlipidemia, osteoarthritis, cachexia, chronic n onhealing ulcers involving bilateral feet. Patient was recently required hospitalization in the last several weeks at the [facility] when he required mechanical ventilator support. Patient follows with Dr. Hall in the pulmonary clinic. On 08/17/2021 patient [facility] because of weakness and fatigue. Patient was also complaining of some chest discomfort in the morning, and shortness of breath. Denied any recent fever or chills. No worsening cough wheezing or phlegm production. No hemoptysis. Chest x-ray showed small bilateral pleural effusions with minimal subsegmental atelectasis at the left base. EKG showed sinus rhythm, with minimal ST depression in inferior leads, and T-wave inversion in aVL and LVH. Laboratory evaluation showed elevated white count of 17.7, hemoglobin of 10.0, platelet count of 285, d-dimer was mildly elevated to 0.97, sodium is 144, potassium is 5.1, BUN of 32, creatinine 0.69, 2 sets of troponins were negative at 0.020, less than 0.012, pro-calcitonin level was elevated to 0.50, TSH was within normal limits, LFTs were within normal limits, plasma lactic acid was 1.3 urinalysis without sign of infection. CT angiogram of the chest showed no evidence of acute pulmonary embolism, and moderate emphysematous change with small size right greater than left pleural effusions. There was focal scarring versus spiculated nodule in the posterior right upper lobe which is new from 2014 study with recommendation of follow-up PET scan. Patient is currently on 3 L of oxygen pulse ox is 99%, he is very short of breath at rest, but appears to be in no acute distress, he is able to answer some simple questions, but he does have conversational dyspnea as well. Afebrile, he is tachycardic, cardiology has been consulted for SVT. Patient is on amiodarone infusion at 1 mg/m for rate control, he is on empiric antibiotics and breathing treatments and IV steroids. The patient is seen today 08/19/2021 in follow-up on the selective care unit. Upon arrival the patient was quite obtunded and unarousable and breathing shallow. He was immediately transferred to the intensive care unit requiring emergent intubation and placed on the mechanical ventilator. Initial settings included assist control mode with a rate of 20, tidal volume 350, FiO2 100% and a PEEP of 5. Left subclavian triple-lumen catheter place. Right radial arterial line placed. Arterial blood gases revealed a PaO2 of 124, pCO2 of 65 and a pH of 7.19. His respiratory rate was increased to 28. PEEP increased to 8. Plans to titrate down the FiO2. White count 11.6. Hemoglobin 8.6. Platelets 256. Sodium 143. Potassium 4.9. Chloride 113. BUN 44. Creatinine 1.42. Glucose 134. AST 42. ALT 195. Albumin 2.8. He is currently sedated on propofol at 50 mcg/kg/m. To be given 1-2 L of fluid resuscitation. Chest x-ray reveals no evidence of pneumothorax, satisfactory positioning of the endotracheal and orogastric tubes. There is worsening left lung edema/infiltrates. Improved aeration of the right lung base. Augmentin discontinued. Initiated on Zosyn. Pro-calcitonin pending. Culture revealing no growth to date. He was initially in atrial fibrillation requiring amiodarone. He is continued on bronchodilators, IV Solu-Medrol. He remains in a positive balance. The patient is seen today 08/20/2021 in follow-up in the intensive care unit. He remains intubated on mechanical ventilator. Still notices control mode with a rate of 28, attentive on 350, FiO2 40% and a PEEP of 8. Morning blood gases revealed a PaO2 of 113, pCO2 42, pH 7.32. He remains sedated on propofol at 75 mcg/kg/m. He has normal saline running at 100 ML's per hour. He is being nourished with vital HPI at 20 ML's per hour with a goal of 36. He is on antibiotics in the form of Zosyn. He is continued on DuoNeb inhalations, Pulmicort and Perforomist inhalations, IV Solu-Medrol. Chest x-ray continues to show mildly improved aeration in the left lung with persistent multifocal airspace opacities. Small bilateral effusions left greater than right. Evidence of COPD. Endotracheal, nasogastric tubes and left central venous catheter all in appropriate position. Blood culture reveals no growth to date. Sputum cultures pending. White count 8.3. Hemoglobin 7.1. Platelets 188. Sodium 143. Potassium 4.8. Chloride 116. Bicarb 21. BUN 44. Creatinine 1.44. Glucose 156. Currently in a +2.5 L. Currently in sinus rhythm. He remains on oral amiodarone. Lovenox for DVT prophylaxis. The patient is seen today 08/21/2021 in follow-up in the intensive care unit. He remains intubated on mechanical ventilator. Currently an assist-control mode. Rate of 28, tidal volume 350, FiO2 35% and a PEEP of 8. Morning blood gases revealed a PaO2 of 108, pCO2 42 and a pH of 7.31. He remains sedated on propofol at 75 mcg/kg/m. He has normal saline at 100 ML's per hour. He is being nourished with vital HPI at 36 ML's per hour. Chest x-ray can continues to show some improvement in the left lower lung. He remains on Zosyn. Endotracheal tube to be advanced 2 cm. Pro-calcitonin was 0.41. Blood culture reveals no growth. Sputum culture pending. White count 6.6. Hemoglobin 7.5. Platelets 163. Sodium 142. Potassium 4.2. Bicarb 21. BUN 39. Creatinine 1.26. Glucose 202. He is currently in a +3.2 L balance. He remains on DuoNeb inhalations, Pulmicort and Perforomist inhalations, IV Solu-Medrol. Antibiotics in the form of Zosyn. Lovenox for DVT prophylaxis. He remains hemodynamically stable. Objective - Vital Signs Vital signs: Vital Signs Temp 98.4 F 08/21/21 12:00 Pulse 82 08/21/21 12:42 Resp 28 H 08/21/21 12:00 BP 142/63 08/21/21 12:00 Pulse Ox 98 08/21/21 12:00 FiO2 35 08/21/21 12:39 Intake & Output 08/20/21 08/21/21 08/21/21 18:59 06:59 18:59 Intake Total 2093.851 2147.720 1082.406 Output Total 445 550 405 Balance 0084.821 5525.720 677.406 Weight 56.5 kg Intake: IV 700 600 Piperacillin-Tazobactam 3 100 .375 gm In Sodium Chloride 0.9% 100 ml @ 25 mls/hr IVPB Q8HR [facility] Rx# :[id number] Sodium Chloride 0.9% 1, 300 000 ml @ 100 mls/hr IV . Q10H [facility] Rx#:[id number] Sodium Chloride 0.9% 1, 500 000 ml @ 100 mls/hr IV . Q10H [facility] Rx#:[id number] ns 400 Intake, IV Titration 877.549 1045.720 206.406 Amount Piperacillin-Tazobactam 3 200 100 .375 gm In Sodium Chloride 0.9% 100 ml @ 25 mls/hr IVPB Q8HR [facility] Rx# :[id number] Sodium Chloride 0.9% 1, 500 1200 100 000 ml @ 100 mls/hr IV . Q10H [facility] Rx#:[id number] propofoL 1,000 mg In 293.851 343.720 106.406 Empty Bag 1 bag @ 5 MCG/ KG/MIN 1.629 mls/hr IV . Q24H [facility] Rx#:[id number] Tube Feeding 280 444 216 Other 120 60 60 Output: Urine 445 550 405 Other: Voiding Method Indwelling Catheter Indwelling Catheter Indwelling Catheter ABP, PAP, CO, CI - Last Documented Arterial Blood Pressure 152/47 - Exam GENERAL EXAM: Intubated, sedated cachectic-looking 71-year-old male. HEAD: Normocephalic/atraumatic. EYES: Normal reaction of pupils, equal size. Conjunctiva pink, sclera white. NOSE: Clear with pink turbinates. THROAT: No erythema or exudates. NECK: No masses, no JVD, no thyroid enlargement, no adenopathy. CHEST: No chest wall deformity. Symmetrical expansion. LUNGS: Equal air entry with diffuse crackles, diminished breath sounds CVS: Regular rate and rhythm, normal S1 and S2, no gallops, no murmurs, no rubs ABDOMEN: Soft, nontender. No hepatosplenomegaly, normal bowel sounds, no guarding or rigidity. EXTREMITIES: No clubbing, no edema, no cyanosis, 2+ pulses and upper and lower extremities. MUSCULOSKELETAL: Muscle strength and tone normal. SPINE: No scoliosis or deformity SKIN: No rashes CENTRAL NERVOUS SYSTEM: Sedated. Tone is normal in all 4 extremities. PSYCHIATRIC: Unable to assess - Labs CBC & Chem 7: 08/21/21 04:27 08/21/21 04:27 Labs: Abnormal Lab Results - Last 24 Hours (Table) 08/20/21 08/20/21 08/21/21 Range/Units 17:30 23:32 04:27 RBC 2.57 L (4.30-5.90) m/uL Hgb 7.5 L (13.0-17.5) gm/dL Hct 25.5 L (39.0-53.0) % MCHC 29.5 L (31.0-37.0) g/dL RDW 18.7 H (11.5-15.5) % Lymphocytes # 0.2 L (1.0-4.8) k/uL ABG pH (7.35-7.45) ABG O2 Saturation (94-97) % Chloride (98-107) mmol/L Carbon Dioxide (22-30) mmol/L BUN (9-20) mg/dL Creatinine (0.66-1.25) mg/dL Glucose (74-99) mg/dL POC Glucose (mg/dL) 125 H 167 H (75-99) mg/dL Calcium (8.4-10.2) mg/dL 08/21/21 08/21/21 08/21/21 Range/Units 04:27 05:46 06:06 RBC (4.30-5.90) m/uL Hgb (13.0-17.5) gm/dL Hct (39.0-53.0) % MCHC (31.0-37.0) g/dL RDW (11.5-15.5) % Lymphocytes # (1.0-4.8) k/uL ABG pH 7.31 L (7.35-7.45) ABG O2 Saturation 98.5 H (94-97) % Chloride 117 H (98-107) mmol/L Carbon Dioxide 21 L (22-30) mmol/L BUN 39 H (9-20) mg/dL Creatinine 1.26 H (0.66-1.25) mg/dL Glucose 202 H (74-99) mg/dL POC Glucose (mg/dL) 202 H (75-99) mg/dL Calcium 7.3 L (8.4-10.2) mg/dL 08/21/21 Range/Units 11:20 RBC (4.30-5.90) m/uL Hgb (13.0-17.5) gm/dL Hct (39.0-53.0) % MCHC (31.0-37.0) g/dL RDW (11.5-15.5) % Lymphocytes # (1.0-4.8) k/uL ABG pH (7.35-7.45) ABG O2 Saturation (94-97) % Chloride (98-107) mmol/L Carbon Dioxide (22-30) mmol/L BUN (9-20) mg/dL Creatinine (0.66-1.25) mg/dL Glucose (74-99) mg/dL POC Glucose (mg/dL) 147 H (75-99) mg/dL Calcium (8.4-10.2) mg/dL Microbiology - Last 24 Hours (Table) 08/18/21 06:04 Blood Culture - Preliminary Blood No Growth after 72 hours 08/19/21 12:06 Gram Stain - Preliminary Sputum Sputum Culture - Preliminary Assessment and Plan Assessment: 1 Acute exacerbation of COPD with acute hypoxemic respiratory failure requiring intubation and mechanical ventilation on 08/19/2021 2 A flutter with RVR, currently in sinus rhythm, on oral amiodarone, Lovenox 3 History of severe end-stage COPD with baseline FEV1 of 25% of predicted 4 Chronic hypoxic respiratory failure related to the above 5 Former smoker 6 Nonhealing bilateral lower extremity ulcers 7 Elevated pro-calcitonin level, rule out possibility of infection, currently on Zosyn 8 Mildly elevated d-dimer, with no CT evidence of pulmonary embolism 9 Focal scarring versus spiculated nodule in the right upper lobe, will need outpatient follow-up, and possible PET scan 10 Chronic cachexia 11 Hypertension 12 Hyperlipidemia 13 Hypothyroidism 14 Osteoarthritis Plan: The patient was seen and evaluated Chest x-ray, ABGs, labs and medications reviewed Decrease normal saline to 50 ML's per hour Remains on Zosyn, DuoNeb inhalations Continue Pulmicort and Perforomist inhalations, IV Solu-Medrol Continue with daily interruption of sedation Overall prognosis remains quite guarded Follow-up chest x-ray, ABGs and labs in the a.m. We will continue to follow I have personally seen and examined the patient, performed the documentation and the assessment and plan as written. Number of minutes spent on the visit: 10.
[2021-08-21 17:31] LABS: Glucose,Whole Blood 138 mg/dL (75-99)
[2021-08-21 23:34] LABS: Glucose,Whole Blood 125 mg/dL (75-99)
[2021-08-22] MEDS: INSULIN ASPART (NovoLOG) 100 UNIT/ML VIAL SQ SCH ×4 (00:12→18:28)
[2021-08-22] MEDS: PIPERACILLIN-TAZOBACTAM 3.375 GM in SODIUM CHLORIDE 0.9% 100 ML IVPB SCH ×3 (00:17→16:11)
[2021-08-22] MEDS: methylPREDNISolone SOD SUCCI 125 MG/2 ML VIAL IV SCH ×4 (00:18→18:29)
[2021-08-22] MEDS: HYDROmorphone 1 MG/ML 1 ML SYRINGE IVP PRN ×5 (00:47→20:07)
[2021-08-22] MEDS: IPRATROPIUM-ALBUTEROL 3 ML NEB INHALATION SCH ×6 (00:59→20:27)
[2021-08-22 05:09] LABS: Anisocytosis Slight; HCT 23.8 % (39.0-53.0); HGB 7.2 gm/dL (13.0-17.5); Hypochromasia Marked; MCH 29.8 pg (25.0-35.0); MCHC 30.4 g/dL (31.0-37.0); MCV 98.1 fL (80.0-100.0); Macrocytosis Slight; Mean Platelet Volume 11.7; Platelet Count 141 k/uL (150-450); RBC 2.42 m/uL (4.30-5.90); RDW 19.5 % (11.5-15.5)
[2021-08-22 05:10] LABS: Glucose,Whole Blood 153 mg/dL (75-99)
[2021-08-22] MEDS: LEVOTHYROXINE 50 MCG TAB PO SCH (05:12)
[2021-08-22 05:25] LABS: African American GFR (CKD) >90 (>60 ml/min/1.73 sqM); Anion Gap 6 mmol/L; Blood Urea Nitrogen 38 mg/dL (9-20); Calcium 7.2 mg/dL (8.4-10.2); Carbon Dioxide 20 mmol/L (22-30); Chloride 120 mmol/L (98-107); Glucose 127 mg/dL (74-99); Non-African American GFR(CKD) 83 (>60 ml/min/1.73 sqM); Potassium 3.7 mmol/L (3.5-5.1); Sodium 146 mmol/L (137-145)
[2021-08-22 06:12] LABS: ABG Base Excess -6.4 mmol/L; ABG HCO3 20 mmol/L (21-25); ABG Oxygen Saturation 98.9 % (94-97); ABG PCO2 40 mmHg (35-45); ABG PO2 116 mmHg (83-108); ABG TCO2 21 mmol/L (19-24); Allen Test Performed? Yes
--- NOTE | 2021-08-22 07:40 | P.PN ---
Subjective This is a pleasant 71 years old male with past medical history of COPD, Hyperlipidemia, Hypertension, Osteoarthritis , Metabolic Encaphalopathy, Acute kidney failure with tubular necrosis, Cachexia, Chronic non-pressure ulcer of back, Rhabdomylosis was sent from [facility] with increased weakness and lethargy over the last 2-3days Patient is poor historian but as per staff with his he has been a intermediate for the last 1-2 months and his been confused. pt looks cachectic and very frail, he is oriented to time ,place and person , but has no denture, his voice is muffled because of that he is been complaining from dyspnea and chest pain which is mild in the middle nonradiating and associated with very little cough. He says his shortness of breath was worse over the last 1 day and a half. Denies any abdominal pain or vomiting or diarrhea but he has low appetite. He denies any choking or swallow problem but he has no denture so we'll check for swallow evaluation Patient looks tachypneic with bilateral chest with some limited air entry but no ricardo wheezing. Patient states that he quit smoking about 10 years ago, used to smoke for more than 10 years. No alcohol or illicit drugs. He has multiple pressure ulcers he has one large pressure ulcers on the right leg laterally with drying scab Or any dressing . Also has multiple pressure ulcers with black eschar on both heels and left foot. The surrounding skin looks intact with no redness or swelling. On admission he was slightly tachypneic on 20, afebrile and heart rate was 84 and blood pressure 141/64, however overnight his blood pressure dropped with sys tolic 90s to 100, currently his blood pressure 104/68, also became tachycardic with heart rate 04/17/2049. He was saturating 9920% on 2-3 L oxygen via nasal cannula. He is mildly hypothermic at 97.2 His WBC is elevated at 17.7. Hemoglobin is 10.0. Platelet count 258. INR 0.9. BUN is 32 and creatinine 0.9. Troponin is 0.02 and less than 0.01. Glucose was on the low side 57 on admission and currently is 201. Urinalysis showed 1+ protein with no evidence of infection. Patient started on steroids and got a breathing treatment, IV fluids and started on amiodarone drips and Lovenox in the emergency room. D-dimer was elevated, therefore CTA of the chest was done which showed negative for pulmonary embolism, emphysematous changes with small pleural effusion. Also there is focal scattered versus speculated nodule in the right upper lobe we ordered stat CT of the brain and CT of the chest to rule out pulmonary embolism given his hypotension, tachycardia and tachypnea with elevated d-dimer. Also with mild hypoxia suspected. However patient confused per staff when he came in and could not be started on heparin drip before we rule out intracranial bleed before CT of the brain is also ordered with CT of the chest. Both tests came back negative 08/19/2021 Patient today during morning rounds found obtunded and responsive and unarousable with impending respiratory failure and he was transferred to the intensive care unit he got intubated and placed on mechanical ventilation with pulmonary/critical care team following closely and held with and management. His WBCs 11.6, hemoglobin 8.6, creatinine 1.4. chest x-ray sewn bilateral worsening infiltrates especially in the lower zones mood versus worsening infection His continued counseling atrial 60 mg, antibiotic form of Zosyn and amiodarone drip for developing A. fib and RVR. High-dose tenderness on hold 08/20/2021 Patient remains in the ICU intubated and sedated, he still tachypneic with respiratory rate of 28, his PEEP of 8.0 today. His hemoglobin is 7.1, creatinine 1.4. Remains on IV Solu-Medrol and Zosyn. Also is on amiodarone drip, and normal saline at 100 mL per hour. He still has bilateral leg ulceration with dried surface. 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 He is still on high PEEP relatively at 8 and FiO2 of 35%. He is tachypneic and tachycardic WBC 6.6, hemoglobin 7.5, creatinine improvement 1.2, chest x-ray showing no change. He remains on Zosyn, IV Solu-Medrol and normal saline Objective - Vital Signs Vital signs: Vital Signs Temp 99.0 F 08/21/21 08:00 Pulse 81 08/21/21 11:00 Resp 28 H 08/21/21 11:00 BP 134/63 08/21/21 11:00 Pulse Ox 99 08/21/21 11:00 FiO2 35 08/21/21 08:00 Intake & Output 08/20/21 08/21/21 08/21/21 18:59 06:59 18:59 Intake Total 2093.851 2147.720 588 Output Total 445 550 215 Balance 9877.594 2652.720 373 Weight 56.5 kg Intake: IV 700 250 Piperacillin-Tazobactam 3 50 .375 gm In Sodium Chloride 0.9% 100 ml @ 25 mls/hr IVPB Q8HR [facility] Rx# :[id number] Sodium Chloride 0.9% 1, 300 000 ml @ 100 mls/hr IV . Q10H [facility] Rx#:[id number] Sodium Chloride 0.9% 1, 200 000 ml @ 100 mls/hr IV . Q10H [facility] Rx#:[id number] ns 400 Intake, IV Titration 369.903 2975.720 200 Amount Piperacillin-Tazobactam 3 200 100 .375 gm In Sodium Chloride 0.9% 100 ml @ 25 mls/hr IVPB Q8HR [facility] Rx# :[id number] Sodium Chloride 0.9% 1, 500 1200 100 000 ml @ 100 mls/hr IV . Q10H [facility] Rx#:[id number] propofoL 1,000 mg In 293.851 343.720 100 Empty Bag 1 bag @ 5 MCG/ KG/MIN 1.629 mls/hr IV . Q24H [facility] Rx#:[id number] Tube Feeding 280 444 108 Other 120 60 30 Output: Urine 445 550 215 Other: Voiding Method Indwelling Catheter Indwelling Catheter Indwelling Catheter ABP, PAP, CO, CI - Last Documented Arterial Blood Pressure 144/77 - Exam GENERAL: The patient is intubated and sedated HEENT: Pupils are round and equally reacting to light. EOMI. No scleral icterus. No conjunctival pallor. Normocephalic, atraumatic. No pharyngeal erythema. No thyromegaly. CARDIOVASCULAR: S1 and S2 present. No murmurs, rubs, or gallops. -PULMONARY: Chest is clear to auscultation, Decreased air entry with scattered wheezing and bilateral crepitation ABDOMEN: Soft, nontender, nondistended, normoactive bowel sounds. No palpable organomegaly. MUSCULOSKELETAL: No joint swelling or deformity. -EXTREMITIES: No cyanosis, clubbing, or pedal edema. Multiple bilateral leg ulcers including both heels and right lateral leg. No evidence of overt surroun ding cellulitis NEUROLOGICAL: Gross neurological examination did not reveal any focal deficits. SKIN: No rashes. no petechiae. - Labs CBC & Chem 7: 08/22/21 04:45 08/22/21 04:45 Labs: Abnormal Lab Results - Last 24 Hours (Table) 08/20/21 08/20/21 08/20/21 Range/Units 11:38 17:30 23:32 RBC (4.30-5.90) m/uL Hgb (13.0-17.5) gm/dL Hct (39.0-53.0) % MCHC (31.0-37.0) g/dL RDW (11.5-15.5) % Lymphocytes # (1.0-4.8) k/uL ABG pH (7.35-7.45) ABG O2 Saturation (94-97) % Chloride (98-107) mmol/L Carbon Dioxide (22-30) mmol/L BUN (9-20) mg/dL Creatinine (0.66-1.25) mg/dL Glucose (74-99) mg/dL POC Glucose (mg/dL) 137 H 125 H 167 H (75-99) mg/dL Calcium (8.4-10.2) mg/dL 08/21/21 08/21/21 08/21/21 Range/Units 04:27 04:27 05:46 RBC 2.57 L (4.30-5.90) m/uL Hgb 7.5 L (13.0-17.5) gm/dL Hct 25.5 L (39.0-53.0) % MCHC 29.5 L (31.0-37.0) g/dL RDW 18.7 H (11.5-15.5) % Lymphocytes # 0.2 L (1.0-4.8) k/uL ABG pH 7.31 L (7.35-7.45) ABG O2 Saturation 98.5 H (94-97) % Chloride 117 H (98-107) mmol/L Carbon Dioxide 21 L (22-30) mmol/L BUN 39 H (9-20) mg/dL Creatinine 1.26 H (0.66-1.25) mg/dL Glucose 202 H (74-99) mg/dL POC Glucose (mg/dL) (75-99) mg/dL Calcium 7.3 L (8.4-10.2) mg/dL 08/21/21 08/21/21 Range/Units 06:06 11:20 RBC (4.30-5.90) m/uL Hgb (13.0-17.5) gm/dL Hct (39.0-53.0) % MCHC (31.0-37.0) g/dL RDW (11.5-15.5) % Lymphocytes # (1.0-4.8) k/uL ABG pH (7.35-7.45) ABG O2 Saturation (94-97) % Chloride (98-107) mmol/L Carbon Dioxide (22-30) mmol/L BUN (9-20) mg/dL Creatinine (0.66-1.25) mg/dL Glucose (74-99) mg/dL POC Glucose (mg/dL) 202 H 147 H (75-99) mg/dL Calcium (8.4-10.2) mg/dL Microbiology - Last 24 Hours (Table) 08/18/21 06:04 Blood Culture - Preliminary Blood No Growth after 72 hours 08/19/21 12:06 Gram Stain - Preliminary Sputum Sputum Culture - Preliminary Assessment and Plan Assessment: Acute hypoxic respiratory failure requiring intubation and mechanical ventilation COPD with exacerbation Multiple pressure ulcers with suspected infection Moderate to severe calories and protein malnutrition multiple leg wounds focal scar versus speculated nodule in the right upper lobe History of hypertension, currently he is hypotensive Hyperlipidemia Dehydration Chronic altered mental status with some elements of acute related to metabolic encephalopathy. 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 cardiology consult Pulmonary chronic left DVTLabs and medication were reviewed.. Continue same treatment. Continue with symptomatic treatment. Resume home medication. Monitor lytes and vitals. DVT and GI prophylaxis. Further recommendations depends on the clinical course of the patient DVT prophylaxis: Subcutaneous LovenoxGI Prophylaxis: Pepcid PT/OT: Pending Prognosis is guarded CODE STATUS Full code per per staff
--- NOTE | 2021-08-22 07:51 | P.PN ---
Subjective Progress Note Date: 08/21/21 Principal diagnosis: Possible aspiration pneumonia and multiple pressure ulcers She is a 71-year-old male with a past medical history significant for end-stage COPD admitted to the hospital with weakness and some shortness of breath patient did have worsening of his respiratory status requiring intubation and admission to the ICU, patient also have multiple pressure ulcers. On today's evaluation 08/21/2021, the patient continues to be afebrile, patient is hemodynamically stable, patient is stable at 40 % FiO2, no significant purulent secretion through the ET, no diarrhea or any other changes reported by the nursing staff Objective - Vital Signs Vital signs: Vital Signs Temp 98.4 F 08/21/21 12:00 Pulse 81 08/21/21 13:00 Resp 28 H 08/21/21 13:00 BP 142/63 08/21/21 13:00 Pulse Ox 97 08/21/21 13:00 FiO2 35 08/21/21 12:39 Intake & Output 08/20/21 08/21/21 08/21/21 18:59 06:59 18:59 Intake Total 2093.851 2147.720 1087.564 Output Total 445 550 405 Balance 7303.910 1371.720 682.564 Weight 56.5 kg Intake: IV 700 600 Piperacillin-Tazobactam 3 100 .375 gm In Sodium Chloride 0.9% 100 ml @ 25 mls/hr IVPB Q8HR [facility] Rx# :[id number] Sodium Chloride 0.9% 1, 300 000 ml @ 100 mls/hr IV . Q10H [facility] Rx#:[id number] Sodium Chloride 0.9% 1, 500 000 ml @ 100 mls/hr IV . Q10H [facility] Rx#:[id number] ns 400 Intake, IV Titration 428.466 5542.720 211.564 Amount Piperacillin-Tazobactam 3 200 100 .375 gm In Sodium Chloride 0.9% 100 ml @ 25 mls/hr IVPB Q8HR [facility] Rx# :[id number] Sodium Chloride 0.9% 1, 500 1200 100 000 ml @ 100 mls/hr IV . Q10H [facility] Rx#:[id number] propofoL 1,000 mg In 293.851 343.720 111.564 Empty Bag 1 bag @ 5 MCG/ KG/MIN 1.629 mls/hr IV . Q24H [facility] Rx#:[id number] Tube Feeding 280 444 216 Other 120 60 60 Output: Urine 445 550 405 Other: Voiding Method Indwelling Catheter Indwelling Catheter Indwelling Catheter ABP, PAP, CO, CI - Last Documented Arterial Blood Pressure 146/47 - Exam GENERAL DESCRIPTION: An elderly male intubated on the vent RESPIRATORY SYSTEM: Unlabored breathing , decreased breath sounds at bases HEART: S1 S2 regular rate and rhythm , ABDOMEN: Soft , no tenderness EXTREMITIES: No edema feet - Labs CBC & Chem 7: 08/22/21 04:45 08/22/21 04:45 Labs: Abnormal Lab Results - Last 24 Hours (Table) 08/20/21 08/20/21 08/21/21 Range/Units 17:30 23:32 04:27 RBC 2.57 L (4.30-5.90) m/uL Hgb 7.5 L (13.0-17.5) gm/dL Hct 25.5 L (39.0-53.0) % MCHC 29.5 L (31.0-37.0) g/dL RDW 18.7 H (11.5-15.5) % Lymphocytes # 0.2 L (1.0-4.8) k/uL ABG pH (7.35-7.45) ABG O2 Saturation (94-97) % Chloride (98-107) mmol/L Carbon Dioxide (22-30) mmol/L BUN (9-20) mg/dL Creatinine (0.66-1.25) mg/dL Glucose (74-99) mg/dL POC Glucose (mg/dL) 125 H 167 H (75-99) mg/dL Calcium (8.4-10.2) mg/dL 08/21/21 08/21/21 08/21/21 Range/Units 04:27 05:46 06:06 RBC (4.30-5.90) m/uL Hgb (13.0-17.5) gm/dL Hct (39.0-53.0) % MCHC (31.0-37.0) g/dL RDW (11.5-15.5) % Lymphocytes # (1.0-4.8) k/uL ABG pH 7.31 L (7.35-7.45) ABG O2 Saturation 98.5 H (94-97) % Chloride 117 H (98-107) mmol/L Carbon Dioxide 21 L (22-30) mmol/L BUN 39 H (9-20) mg/dL Creatinine 1.26 H (0.66-1.25) mg/dL Glucose 202 H (74-99) mg/dL POC Glucose (mg/dL) 202 H (75-99) mg/dL Calcium 7.3 L (8.4-10.2) mg/dL 08/21/21 Range/Units 11:20 RBC (4.30-5.90) m/uL Hgb (13.0-17.5) gm/dL Hct (39.0-53.0) % MCHC (31.0-37.0) g/dL RDW (11.5-15.5) % Lymphocytes # (1.0-4.8) k/uL ABG pH (7.35-7.45) ABG O2 Saturation (94-97) % Chloride (98-107) mmol/L Carbon Dioxide (22-30) mmol/L BUN (9-20) mg/dL Creatinine (0.66-1.25) mg/dL Glucose (74-99) mg/dL POC Glucose (mg/dL) 147 H (75-99) mg/dL Calcium (8.4-10.2) mg/dL Microbiology - Last 24 Hours (Table) 08/18/21 06:04 Blood Culture - Preliminary Blood No Growth after 72 hours Assessment and Plan (1) Pneumonia Current Visit: Yes Status: Acute Code(s): J18.9 - PNEUMONIA, UNSPECIFIED OR GANISM SNOMED Code(s): 012104456 Plan: 1patient presented to hospital with increasing shortness of breath could be related to her underlying cardiac etiology, patient subsequently did have worsening of his respiratory status requiring intubation and concern for possible aspiration. 2sputum culture has been obtained which are currently pending 3patient Seems to have shown some clinical improvement and will to continue Zosyn while waiting for the culture to be finalized 4-Medihoney to the left thigh wound with a slough rest of the wound with a dry necrotic area to keep them dry and of the pressure. at the bedside questions were answered Time with Patient: Less than 30
[2021-08-22] MEDS: BUDESONIDE 1 MG/2 ML NEBU INHALATION SCH ×2 (07:57→20:27)
[2021-08-22] MEDS: FORMOTEROL FUMARATE 20 MCG/2 ML NEBU INHALATION SCH ×2 (07:57→20:27)
--- NOTE | 2021-08-22 08:33 | XR ---
EXAMINATION TYPE: XR chest 1V portable DATE OF EXAM: 08/22/2021 COMPARISON: X-ray dated 08/21/2021 HISTORY: Tube placement TECHNIQUE: Single frontal view of the chest is obtained. FINDINGS: The tip of endotracheal tube is about 5.9 cm proximal to the josette. NG tube is seen with the tip is inferior to the diaphragm. Left subclavian line with the tip is at the atriocaval junction. Suspected small pleural effusions, stable. Unchanged lungs otherwise. No gross cardiomegaly. Aortic a therosclerotic calcifications. Unchanged bony thoracic cage. IMPRESSION: No significant interval changes.
--- NOTE | 2021-08-22 08:50 | P.PN ---
Subjective Progress Note Date: 08/22/21 The patient is 71-year-old male who is currently admitted to the hospital with hypoxic respiratory failure secondary to COPD exacerbation. Cardiology was consulted for atrial fibrillation. The patient received IV bolus of amiodarone and is currently on 400 mg oral. Echocardiogram revealed LV function of 50% with moderate aortic stenosis, moderate aortic insufficiency, and moderate mitral regurgitation. The patient was examined in the ICU. The patient is currently mechanically ventilated and sedated on propofol. He remains in atrial fibrillation with heart rates in the 1 teens to 120s. GENERAL: Ill-appearing, sedated. NECK: Supple without JVD or thyromegaly. LUNGS: Breath sounds diminished to auscultation bilaterally. Respiration equal and unlabored. No wheezes, rales or rhonchi. HEART: Irregular rate and rhythm. Systolic ejection murmur. No rubs or gallops. S1 and S2 heard. EXTREMITIES: Limited range of motion, generalized edema. No clubbing or cyanosis. Peripheral pulses intact and strong. VITALS: Blood pressure 115/73, respiratory rate 28, pulse 115, SpO2 97% on current ventilator settings TELEMETRY: Persistent atrial fibrillation LABS: WBC 9.0, hemoglobin 7.2, platelet 141, sodium 146, potassium 3.7, BUN 38, creatinine 0.93 IMPRESSION: Atrial flutter/Atrial fibrillation, rate control Valvular heart disease COPD exacerbation Anemia PLAN: Increase metoprolol to 50 mg twice daily Continue oral amiodarone. Decisions regarding long-term oral antiarrhythmic to be determined based upon clinical course. Continue Lovenox for anticoagulation. Transition to novel agent once extubated. Further recommendations to be based on clinical course. I am dictating on behalf of Dr John Hutchison's history/physical and assessment/plan. Objective - Vital Signs Vital signs: Vital Signs Temp 98.3 F 08/22/21 04:00 Pulse 114 H 08/22/21 08:18 Resp 28 H 08/22/21 07:00 BP 115/73 08/22/21 07:00 Pulse Ox 97 08/22/21 07:00 FiO2 30 08/22/21 07:24 Intake & Output 08/21/21 08/22/21 08/22/21 18:59 06:59 18:59 Intake Total 1973.906 2695.482 86 Output Total 750 690 60 Balance 1071.692 578.482 26 Weight 59.3 kg Intake: IV 1000 650 50 Piperacillin-Tazobactam 3 100 100 .375 gm In Sodium Chloride 0.9% 100 ml @ 25 mls/hr IVPB Q8HR [facility] Rx# :[id number] Sodium Chloride 0.9% 1, 900 550 50 000 ml @ 50 mls/hr IV . Q20H [facility] Rx#:[id number] Intake, IV Titration 263.692 194.482 Amount Sodium Chloride 0.9% 1, 100 000 ml @ 50 mls/hr IV . Q20H [facility] Rx#:[id number] propofoL 1,000 mg In 163.692 194.482 Empty Bag 1 bag @ 5 MCG/ KG/MIN 1.629 mls/hr IV . Q24H [facility] Rx#:[id number] Tube Feeding 468 324 36 Other 90 100 Output: Urine 750 690 60 Other: Voiding Method Indwelling Catheter Indwelling Catheter ABP, PAP, CO, CI - Last Documented Arterial Blood Pressure 139/51 - Labs CBC & Chem 7: 08/22/21 04:45 08/22/21 04:45 Labs: Abnormal Lab Results - Last 24 Hours (Table) 08/21/21 08/21/21 08/21/21 Range/Units 11:20 17:29 23:33 RBC (4.30-5.90) m/uL Hgb (13.0-17.5) gm/dL Hct (39.0-53.0) % MCHC (31.0-37.0) g/dL RDW (11.5-15.5) % Plt Count (150-450) k/uL ABG pH (7.35-7.45) ABG pO2 (83-108) mmHg ABG HCO3 (21-25) mmol/L ABG O2 Saturation (94-97) % Sodium (137-145) mmol/L Chloride (98-107) mmol/L Carbon Dioxide (22-30) mmol/L BUN (9-20) mg/dL Glucose (74-99) mg/dL POC Glucose (mg/dL) 147 H 138 H 125 H (75-99) mg/dL Calcium (8.4-10.2) mg/dL 08/22/21 08/22/21 08/22/21 Range/Units 04:45 04:45 05:09 RBC 2.42 L (4.30-5.90) m/uL Hgb 7.2 L (13.0-17.5) gm/dL Hct 23.8 L (39.0-53.0) % MCHC 30.4 L (31.0-37.0) g/dL RDW 19.5 H (11.5-15.5) % Plt Count 141 L (150-450) k/uL ABG pH (7.35-7.45) ABG pO2 (83-108) mmHg ABG HCO3 (21-25) mmol/L ABG O2 Saturation (94-97) % Sodium 146 H (137-145) mmol/L Chloride 120 H (98-107) mmol/L Carbon Dioxide 20 L (22-30) mmol/L BUN 38 H (9-20) mg/dL Glucose 127 H (74-99) mg/dL POC Glucose (mg/dL) 153 H (75-99) mg/dL Calcium 7.2 L (8.4-10.2) mg/dL 08/22/21 Range/Units 05:38 RBC (4.30-5.90) m/uL Hgb (13.0-17.5) gm/dL Hct (39.0-53.0) % MCHC (31.0-37.0) g/dL RDW (11.5-15.5) % Plt Count (150-450) k/uL ABG pH 7.30 L (7.35-7.45) ABG pO2 116 H (83-108) mmHg ABG HCO3 20 L (21-25) mmol/L ABG O2 Saturation 98.9 H (94-97) % Sodium (137-145) mmol/L Chloride (98-107) mmol/L Carbon Dioxide (22-30) mmol/L BUN (9-20) mg/dL Glucose (74-99) mg/dL POC Glucose (mg/dL) (75-99) mg/dL Calcium (8.4-10.2) mg/dL Microbiology - Last 24 Hours (Table) 08/18/21 06:04 Blood Culture - Preliminary Blood No Growth after 96 hours 08/19/21 12:06 Gram Stain - Final Sputum Sputum Culture - Final Corynebacterium striatum
[2021-08-22] MEDS ORDERED: POTASSIUM BICARBONATE/CIT AC 20 MEQ TABLET.EFF NG-TUBE SCH (09:00)
[2021-08-22] MEDS: ENOXAPARIN 60 MG/0.6 ML SYRINGE SQ SCH ×2 (09:29→20:08)
[2021-08-22] MEDS: AMIODARONE 200 MG TAB PO SCH ×2 (09:29→20:07)
[2021-08-22] MEDS: METOPROLOL TARTRATE 50 MG TAB PO SCH ×2 (09:29→20:07)
[2021-08-22] MEDS: CHLORHEXIDINE GLUCONATE 15 ML CUP MUCOUS MEM SCH ×2 (09:29→20:07)
[2021-08-22] MEDS: FAMOTIDINE 20 MG TAB PO SCH (09:29)
[2021-08-22] MEDS: SODIUM CHLORIDE 0.9% 1,000 ML IV SCH (09:39)
--- NOTE | 2021-08-22 10:45 | P.PN ---
Subjective Progress Note Date: 08/22/21 71-year-old male patient with known history of severe end-stage COPD, with a baseline FEV1 of 0.67 L or 25% predicted as November 2020 PFT, on home oxygen patient usually wears 3 L of oxygen on a regular basis, ex-smoker, chronic dyspnea, hypertension, hyperlipidemia, osteoarthritis, cachexia, chronic nonhealing ulcers involving bilateral feet. Patient was recently required hospitalization in the last several weeks at the [facility] when he required mechanical ventilator support. Patient follows with Dr. Hall in the pulmonary clinic. On 08/17/2021 patient presents to the emergency department from a retirement because of weakness and fatigue. Patient was also complaining of some chest discomfort in the morning, and shortness of breath. Denied any recent fever or chills. No worsening cough wheezing or phlegm production. No hemoptysis. Chest x-ray showed small bilateral pleural effusions with minimal subsegmental atelectasis at the left base. EKG showed sinus rhythm, with minimal ST depression in inferior leads, and T-wave inversion in aVL and LVH. Laboratory evaluation showed elevated white count of 17.7, hemoglobin of 10.0, platelet count of 285, d-dimer was mildly elevated to 0.97, sodium is 144, potassium is 5.1, BUN of 32, creatinine 0.69, 2 sets of troponins were negative at 0.020, less than 0.012, pro-calcitonin level was elevated to 0.50, TSH was within normal limits, LFTs were within normal limits, plasma lactic acid was 1.3 urinalysis without sign of infection. CT angiogram of the chest showed no evidence of acute pulmonary embolism, and moderate emphysematous change with small size right greater than left pleural effusions. There was foc al scarring versus spiculated nodule in the posterior right upper lobe which is new from 2014 study with recommendation of follow-up PET scan. Patient is currently on 3 L of oxygen pulse ox is 99%, he is very short of breath at rest, but appears to be in no acute distress, he is able to answer some simple questions, but he does have conversational dyspnea as well. Afebrile, he is tachycardic, cardiology has been consulted for SVT. Patient is on amiodarone infusion at 1 mg/m for rate control, he is on empiric antibiotics and breathing treatments and IV steroids. The patient is seen today 08/19/2021 in follow-up on the selective care unit. Upon arrival the patient was quite obtunded and unarousable and breathing shallow. He was immediately transferred to the intensive care unit requiring emergent intubation and placed on the mechanical ventilator. Initial settings included assist control mode with a rate of 20, tidal volume 350, FiO2 100% and a PEEP of 5. Left subclavian triple-lumen catheter place. Right radial arterial line placed. Arterial blood gases revealed a PaO2 of 124, pCO2 of 65 and a pH of 7.19. His respiratory rate was increased to 28. PEEP increased to 8. Plans to titrate down the FiO2. White count 11.6. Hemoglobin 8.6. Platelets 256. Sodium 143. Potassium 4.9. Chloride 113. BUN 44. Creatinine 1.42. Glucose 134. AST 42. ALT 195. Albumin 2.8. He is currently sedated on propofol at 50 mcg/kg/m. To be given 1-2 L of fluid resuscitation. Chest x-ray reveals no evidence of pneumothorax, satisfactory positioning of the endotracheal and orogastric tubes. There is worsening left lung edema/infiltrates. Improved aeration of the right lung base. Augmentin discontinued. Initiated on Zosyn. Pro-calcitonin pending. Culture revealing no growth to date. He was initially in atrial fibrillation requiring amiodarone . He is continued on bronchodilators, IV Solu-Medrol. He remains in a positive balance. The patient is seen today 08/20/2021 in follow-up in the intensive care unit. He remains intubated on mechanical ventilator. Still notices control mode with a rate of 28, attentive on 350, FiO2 40% and a PEEP of 8. Morning blood gases revealed a PaO2 of 113, pCO2 42, pH 7.32. He remains sedated on propofol at 75 mcg/kg/m. He has normal saline running at 100 ML's per hour. He is being nourished with vital HPI at 20 ML's per hour with a goal of 36. He is on antibiotics in the form of Zosyn. He is continued on DuoNeb inhalations, Pulmicort and Perforomist inhalations, IV Solu-Medrol. Chest x-ray continues to show mildly improved aeration in the left lung with persistent multifocal airspace opacities. Small bilateral effusions left greater than right. Evidence of COPD. Endotracheal, nasogastric tubes and left central venous catheter all in appropriate position. Blood culture reveals no growth to date. Sputum cultures pending. White count 8.3. Hemoglobin 7.1. Platelets 188. Sodium 143. Potassium 4.8. Chloride 116. Bicarb 21. BUN 44. Creatinine 1.44. Glucose 156. Currently in a +2.5 L. Currently in sinus rhythm. He remains on oral amiodarone. Lovenox for DVT prophylaxis. The patient is seen today 08/21/2021 in follow-up in the intensive care unit. He remains intubated on mechanical ventilator. Currently an assist-control mode. Rate of 28, tidal volume 350, FiO2 35% and a PEEP of 8. Morning blood gases revealed a PaO2 of 108, pCO2 42 and a pH of 7.31. He remains sedated on propofol at 75 mcg/kg/m. He has normal saline at 100 ML's per hour. He is being nourished with vital HPI at 36 ML's per hour. Chest x-ray can continues to show some improvement in the left lower lung. He remains on Zosyn. Endotracheal tube to be advanced 2 cm. Pro-calcitonin was 0.41. Blood culture reveals no growth. Sputum culture pending. White count 6.6. Hemoglobin 7.5. Platelets 163. Sodium 142. Potassium 4.2. Bicarb 21. BUN 39. Creatinine 1.26. Glucose 202. He is currently in a +3.2 L balance. He remains on DuoNeb inhalations, Pulmicort and Perforomist inhalations, IV Solu-Medrol. Antibiotics in the form of Zosyn. Lovenox for DVT prophylaxis. He remains hemodynamically stable. 08/22/2021, the patient is being seen for a follow-up. As mentioned, a 71-year-old male patient with advanced COPD with an FEV1 of 0.67 L benefit 1 of around 25% of predicted, with known history of chronic hypoxic respiratory failure maintained on oxygen at 3 L and currently the patient intubated on a mechanical ventilator. He is on propofol running at [place] micrograms per kilogram per minute. The patient is an assist-control mode of mechanical ventilation at the rate of 28 with a tidal volume of 350 and FiO2 of 30% with a PEEP of 8. Peak airway pressure is around 26-30. The patient has an auto PEEP which is in the order of 3 cm of water. The blood gases from today shows a pH of 7.30 with a pCO2 of 40 and pO2 of 116. His serum bicarbonate is at 20, and the patient could have been potentially a CO2 retainer with chronic metabolic alkalosis and this can be relative acidosis. The rest of the blood work shows a sodium level of 146, potassium of 3.7, BUN of 38 with a creatinine of 0.9. The white cell count is at 9 with a hemoglobin of 7.2. The patient is currently covered empirically with IV Zosyn. The chest x-ray from today is showing adequate positioning of the ET tube. The patient has bilateral lower lobe small pleural effusions. No major interval change compared to yesterday. He remains on DuoNeb nebulized treatments around the clock. Remains on IV Solu-Medrol and remains on IV Zosyn. The pro-calcitonin level was at 0.631 at a time of admission. Lactic acid level was nonelevated the time of admission. The patient has a flutter rhythm and currently is on oral amiodarone. He is also on anticoagulation with Lovenox 50 mg subcu every 12 hours under the recommendations of cardiology. Note that the patient also has chronic once and the wounds are multiple involving the right forearm where he is a skin tear, right calf ulcer, right willis, left thigh, left foot and left elbow and he also has a sacral wound stage II. None of these wounds are draining. The one on his right willis is covered with a rather thick scab which is extending in the area under his knee to the mid the patient is also on goal enteral feeding and the pa tient is currently on vital high protein right running at the rate of 36. Objective - Vital Signs Vital signs: Vital Signs Temp 98.6 F 08/22/21 08:00 Pulse 116 H 08/22/21 10:00 Resp 28 H 08/22/21 10:00 BP 120/70 08/22/21 10:00 Pulse Ox 96 08/22/21 10:00 FiO2 30 08/22/21 10:00 Intake & Output 08/21/21 08/22/21 08/22/21 18:59 06:59 18:59 Intake Total 2660.895 6598.482 540.437 Output Total 750 690 270 Balance 1071.692 578.482 270.437 Weight 59.3 kg Intake: IV 1000 650 300 Piperacillin-Tazobactam 3 100 100 100 .375 gm In Sodium Chloride 0.9% 100 ml @ 25 mls/hr IVPB Q8HR [facility] Rx# :[id number] Sodium Chloride 0.9% 1, 900 550 200 000 ml @ 50 mls/hr IV . Q20H [facility] Rx#:[id number] Intake, IV Titration 263.692 194.482 96.437 Amount Sodium Chloride 0.9% 1, 100 000 ml @ 50 mls/hr IV . Q20H [facility] Rx#:[id number] propofoL 1,000 mg In 163.692 194.482 96.437 Empty Bag 1 bag @ 5 MCG/ KG/MIN 1.629 mls/hr IV . Q24H [facility] Rx#:[id number] Tube Feeding 468 324 144 Other 90 100 Output: Urine 750 690 270 Other: Voiding Method Indwelling Catheter Indwelling Catheter Indwelling Catheter ABP, PAP, CO, CI - Last Documented Arterial Blood Pressure 139/51 - Exam GENERAL EXAM: Intubated, sedated cachectic-looking 71-year-old male. Patient has been riding the mechanical ventilator at the rate of 28 which is the citrate with the mechanical ventilator. HEAD: Normocephalic/atraumatic. EYES: Normal reaction of pupils, equal size. Conjunctiva pink, sclera white. NOSE: Clear with pink turbinates. THROAT: No erythema or exudates. NECK: No masses, no JVD, no thyroid enlargement, no adenopathy. CHEST: No chest wall deformity. Symmetrical expansion. LUNGS: Equal air entry with diffuse crackles, diminished breath sounds CVS: Regular rate and rhythm, normal S1 and S2, no gallops, no murmurs, no rubs ABDOMEN: Soft, nontender. No hepatosplenomegaly, normal bowel sounds, no guarding or rigidity. EXTREMITIES: No clubbing, no edema, no cyanosis, 2+ pulses and upper and lower extremities. MUSCULOSKELETAL: Muscle strength and tone normal. SPINE: No scoliosis or deformity SKIN: No rashes CENTRAL NERVOUS SYSTEM: Sedated. Tone is normal in all 4 extremities. PSYCHIATRIC: Unable to assess - Labs CBC & Chem 7: 08/22/21 04:45 08/22/21 04:45 Labs: Abnormal Lab Results - Last 24 Hours (Table) 08/21/21 08/21/21 08/21/21 Range/Units 11:20 17:29 23:33 RBC (4.30-5.90) m/uL Hgb (13.0-17.5) gm/dL Hct (39.0-53.0) % MCHC (31.0-37.0) g/dL RDW (11.5-15.5) % Plt Count (150-450) k/uL ABG pH (7.35-7.45) ABG pO2 (83-108) mmHg ABG HCO3 (21-25) mmol/L ABG O2 Saturation (94-97) % Sodium (137-145) mmol/L Chloride (98-107) mmol/L Carbon Dioxide (22-30) mmol/L BUN (9-20) mg/dL Glucose (74-99) mg/dL POC Glucose (mg/dL) 147 H 138 H 125 H (75-99) mg/dL Calcium (8.4-10.2) mg/dL 08/22/21 08/22/21 08/22/21 Range/Units 04:45 04:45 05:09 RBC 2.42 L (4.30-5.90) m/uL Hgb 7.2 L (13.0-17.5) gm/dL Hct 23.8 L (39.0-53.0) % MCHC 30.4 L (31.0-37.0) g/dL RDW 19.5 H (11.5-15.5) % Plt Count 141 L (150-450) k/uL ABG pH (7.35-7.45) ABG pO2 (83-108) mmHg ABG HCO3 (21-25) mmol/L ABG O2 Saturation (94-97) % Sodium 146 H (137-145) mmol/L Chloride 120 H (98-107) mmol/L Carbon Dioxide 20 L (22-30) mmol/L BUN 38 H (9-20) mg/dL Glucose 127 H (74-99) mg/dL POC Glucose (mg/dL) 153 H (75-99) mg/dL Calcium 7.2 L (8.4-10.2) mg/dL 08/22/21 Range/Units 05:38 RBC (4.30-5.90) m/uL Hgb (13.0-17.5) gm/dL Hct (39.0-53.0) % MCHC (31.0-37.0) g/dL RDW (11.5-15.5) % Plt Count (150-450) k/uL ABG pH 7.30 L (7.35-7.45) ABG pO2 116 H (83-108) mmHg ABG HCO3 20 L (21-25) mmol/L ABG O2 Saturation 98.9 H (94-97) % Sodium (137-145) mmol/L Chloride (98-107) mmol/L Carbon Dioxide (22-30) mmol/L BUN (9-20) mg/dL Glucose (74-99) mg/dL POC Glucose (mg/dL) (75-99) mg/dL Calcium (8.4-10.2) mg/dL Microbiology - Last 24 Hours (Table) 08/18/21 06:04 Blood Culture - Preliminary Blood No Growth after 96 hours 08/19/21 12:06 Gram Stain - Final Sputum Sputum Culture - Final Corynebacterium striatum Assessment and Plan Plan: 1 Acute exacerbation of COPD with acute hypoxemic respiratory failure requiring intubation and mechanical ventilation on 08/19/2021 chest x-ray showing bilateral lower lobe infiltrates/effusions. The blood gas is showing a component of metabolic acidosis which could be a relative metabolic acidosis that the patient needs to be relatively and metabolic alkalosis. The patient's is probably also a CO2 retainer. Her blood baseline blood. Is not available at this point in time. 2 A flutter with RVR, currently in sinus rhythm, on oral amiodarone, Lovenox 3 History of severe end-stage COPD with baseline FEV1 of 25% of predicted 4 Chronic hypoxic respiratory failure related to the above 5 Former smoker 6 Nonhealing bilateral lower extremity ulcers 7 Elevated pro-calcitonin level, rule out possibility of infection, currently on Zosyn 8 Mildly elevated d-dimer, with no CT evidence of pulmonary embolism 9 Focal scarring versus spiculated nodule in the right upper lobe, will need outpatient follow-up, and possible PET scan 10 Chronic cachexia 11 Hypertension 12 Hyperlipidemia 13 Hypothyroidism 14 Osteoarthritis Plan: Keep the patient on sedation Dropped a respiratory rate down to 14, dropped the PEEP down to 6 Repeated blood. No Known Time to Reevaluate His Acid Base Status This will be a very difficult extubation based on his advanced COPD and comorbidities. He is extremely cachectic and emaciated. I would like to have a discussion with his family in touch base and explained to them the critical nature of the problem and his poor prognosis. He is a retirement resident and is been essentially debilitated over this past several years. Change IV fluids to KVO Remains on Zosyn, DuoNeb inhalations Continue Pulmicort and Perforomist inhalations, IV Solu-Medrol Continue with daily interruption of sedation Overall prognosis remains quite guarded Continue enteral feeding for nutritional support Continue thyroid hormone replacement Continue amiodarone continue Lovenox Condition is critical. We'll continue to follow. No plans for extubation her weaning. Critically care evaluation was done and more than 30 minutes. Time with Patient: Greater than 30
[2021-08-22 11:15] LABS: Glucose,Whole Blood 192 mg/dL (75-99)
[2021-08-22 13:40] LABS: ABG Base Excess -4.2 mmol/L; ABG HCO3 22 mmol/L (21-25); ABG Oxygen Saturation 98.6 % (94-97); ABG PCO2 42 mmHg (35-45); ABG PH 7.32 (7.35-7.45); ABG PO2 91 mmHg (83-108); ABG TCO2 23 mmol/L (19-24); Allen Test Performed? Yes
--- NOTE | 2021-08-22 16:19 | P.PCN ---
Date of Procedure: 08/22/21 Preoperative Diagnosis: COPD exacerbation with respiratory failure Postoperative Diagnosis: COPD exacerbation with respiratory failure Procedure(s) Performed: Arterial line insertion Anesthesia: local Estimated Blood Loss (ml): 0 Pathology: none sent Disposition: ICU Operative Findings: Insertion of an arterial line Indication: Hemodynamic monitoring. A time-out was completed verifying correct patient, procedure, site, positioning, and implant(s) or special equipment if applicable. Allens test was performed to ensure adequate perfusion. The patients left wrist was prepped and draped in sterile fashion. 1% Lidocaine was used to anesthetize the area. An 18G [place] arterial line was introduced into the radial artery. The catheter was threaded over the guide wire and the needle was removed with appropriate pulsatile blood return. Blood loss was minimal. The catheter was then sutured in place to the skin and a sterile dressing applied. Perfusion to the extremity distal to the point of catheter insertion was checked and found to be adequate. The patient tolerated the procedure well and there were no complications.
[2021-08-22 17:40] LABS: Glucose,Whole Blood 174 mg/dL (75-99)
--- NOTE | 2021-08-22 19:09 | P.PN ---
Subjective Progress Note Date: 08/22/21 This is a pleasant 71 years old male with past medical history of COPD, Hyperlipidemia, Hypertension, Osteoarthritis , Metabolic Encaphalopathy, Acute kidney failure with tubular necrosis, Cachexia, Chronic non-pressure ulcer of back, Rhabdomylosis was sent from [facility] with increased weakness and lethargy over the last 2-3days Patient is poor historian but as per staff with . his he has been a [facility] for the last 1-2 months and his been confused. pt looks cachectic and very frail, he is oriented to time ,place and person , but has no denture, his voice is muffled because of that he is been complaining from dyspnea and chest pain which is mild in the middle nonradiating and associated with very little cough. He says his shortness of breath was worse over the last 1 day and a half. Denies any abdominal pain or vomiting or diarrhea but he has low appetite. He denies any choking or swallow problem but he has no denture so we'll check for swallow evaluation Patient looks tachypneic with bilateral chest with some limited air entry but no ricardo wheezing. Patient states that he quit smoking about 10 years ago, used to smoke for more than 10 years. No alcohol or illicit drugs. He has multiple pressure ulcers he has one large pressure ulcers on the right leg laterally with drying scab Or any dressing . Also has multiple pressure ulcers with black eschar on both heels and left foot. The surrounding skin looks intact with no redness or swelling. On admission he was slightly tachypneic on 20, afebrile and heart rate was 84 and blood pressure 141/64, however overnight his blood pressure dropped with systolic 90s to 100, currently his blood pressure 104/68, also became tachycardic with heart rate 04/17/2049. He was saturating 9920% on 2-3 L oxygen via nasal cannula. He is mildly hypothermic at 97.2 His WBC is elevated at 17.7. Hemoglobin is 10.0. Platelet count 258. INR 0.9. BUN is 32 and creatinine 0.9. Troponin is 0.02 and less than 0.01. Glucose was on the low side 57 on admission and currently is 201. Urinalysis showed 1+ protein with no evidence of infection. Patient started on steroids and got a breathing treatment, IV fluids and started on amiodarone drips and Lovenox in the emergency room. D-dimer was elevated, therefore CTA of the chest was done which showed negative for pulmonary embolism, emphysematous changes with small pleural effusion. Also there is focal scattered versus speculated nodule in the right upper lobe we ordered stat CT of the brain and CT of the chest to rule out pulmonary embolism given his hypotension, tachycardia and tachypnea with elevated d-dimer. Also with mild hypoxia suspected. However patient confused per staff when he came in and could not be started on heparin drip before we rule out intracranial bleed before CT of the brain is also ordered with CT of the chest. Both tests came back negative 08/19/2021 Patient today during morning rounds found obtunded and responsive and unarousable with impending respiratory failure and he was transferred to the intensive care unit he got intubated and placed on mechanical ventilation with pulmonary/critical care team following closely and held with and management. His WBCs 11.6, hemoglobin 8.6, creatinine 1.4. chest x-ray sewn bilateral worsening infiltrates especially in the lower zones mood versus worsening infection His continued counseling atrial 60 mg, antibiotic form of Zosyn and amiodarone drip for developing A. fib and RVR. High-dose tenderness on hold 08/20/2021 Patient remains in the ICU intubated and sedated, he still tachypneic with respiratory rate of 28, his PEEP of 8.0 today. His hemoglobin is 7.1, creatinine 1.4. Remains on IV Solu-Medrol and Zosyn. Also is on amiodarone drip, and normal saline at 100 mL per hour. He still has bilateral leg ulceration with dried surface. Ultrasound showing evidence of chronic left DVT, currently he is on Lovenox 50 mg twice daily 08/21/2021 patient remains in the ICU sedated and intubated with pulmonary/critical care team following him closely and help with vent management . He is still on high PEEP relatively at 8 and FiO2 of 35%. He is tachypneic and tachycardic WBC 6.6, hemoglobin 7.5, creatinine improvement 1.2, chest x-ray showing no change. He remains on Zosyn, IV Solu-Medrol and normal saline 08/22/2021 Patient continues to be in the MICU with multiple medical consultations following. Pulmonary intensivists following and patient is maintained on IV steroids, duonebs, and IV antibiotics and will continue. Patient continues on vent with an FI02 of 30% and peep being weaned somewhat from 8 to 6 today. Chest xray is similar to previous day with no real improvement. Patient is afebrile. Patient overall prognosis is extremely poor and guarded and code status to be addressed. Cardiology following as well and have increased the metoprolol and continues on amiodarone. Review of systems: unable to obtain as patient is sedated and on mechanical vent. Active Medications Acetaminophen (Acetaminophen Tab 325 Mg Tab) 650 mg PO Q4H PRN PRN Reason: Pain or Fever > 100.5 Albuterol/Ipratropium (Ipratropium-Albuterol 3 Ml Neb) 3 ml INHALATION RT-Q4H PRN PRN Reason: Shortness Of Breath Or Wheezing Albuterol/Ipratropium (Ipratropium-Albuterol 3 Ml Neb) 3 ml INHALATION RT-Q4H [facility] Last Admin: 08/22/21 17:08 Dose: 3 ml Amiodarone HCl (Amiodarone 200 Mg Tab) 200 mg PO BID [facility] Last Admin: 08/22/21 09:29 Dose: 200 mg Budesonide (Budesonide 1 Mg/2 Ml Nebu) 1 mg INHALATION RT-BID [facility] Last Admin: 08/22/21 07:57 Dose: 1 mg Chlorhexidine Gluconate (Chlorhexidine Gluconate 15 Ml Cup) 15 ml MUCOUS MEM BID [facility] Last Admin: 08/22/21 09:29 Dose: 15 ml Enoxaparin Sodium (Enoxaparin 60 Mg/0.6 Ml Syringe) 50 mg SQ Q12HR [facility] Last Admin: 08/22/21 09:29 Dose: 50 mg Famotidine (Famotidine 20 Mg Tab) 20 mg PO DAILY [facility] Last Admin: 08/22/21 09:29 Dose: 20 mg Formoterol Fumarate (Formoterol Fumarate 20 Mcg/2 Ml Nebu) 20 mcg INHALATION RT-BID [facility] Last Admin: 08/22/21 07:57 Dose: 20 mcg Hydromorphone HCl (Hydromorphone 1 Mg/Ml 1 Ml Syringe) 1 mg IVP Q2HR PRN PRN Reason: Pain Last Admin: 08/22/21 17:00 Dose: 1 mg Propofol 1,000 mg/ IV Solution 100 mls @ 1.629 mls/hr IV .Q24H [facility]; Protocol Last Admin: 08/22/21 16:11 Dose: 60 mcg/kg/min, 19.548 mls/hr Piperacillin Sod/Tazobactam (Sod 3.375 gm/ Sodium Chloride) 100 mls @ 25 mls/hr IVPB Q8HR [facility]; Protocol Last Admin: 08/22/21 16:11 Dose: 25 mls/hr Sodium Chloride (Saline 0.9%) 1,000 mls @ 20 mls/hr IV .Q24H [facility] Last Admin: 08/22/21 09:39 Dose: 50 mls/hr Insulin Aspart (Insulin Aspart (Novolog) 100 Unit/Ml Vial) 0 unit SQ Q6HR [facility]; Protocol Last Admin: 08/22/21 18:28 Dose: 2 unit Levothyroxine Sodium (Levothyroxine 50 Mcg Tab) 50 mcg PO DAILY@0500 [facility] Last Admin: 08/22/21 05:12 Dose: 50 mcg Methylprednisolone Sodium Succinate (Methylprednisolone Sod Succi 125 Mg/2 Ml Vial) 60 mg IV Q6HR [facility] Last Admin: 08/22/21 18:29 Dose: 60 mg Metoprolol Tartrate (Metoprolol Tartrate 50 Mg Tab) 50 mg PO BID [facility] Last Admin: 08/22/21 09:29 Dose: 50 mg Naloxone HCl (Naloxone 0.4 Mg/Ml 1 Ml Vial) 0.2 mg IV Q2M PRN PRN Reason: Opioid Reversal Tramadol HCl (Tramadol 50 Mg Tab) 50 mg PO Q6H PRN PRN Reason: Pain Physical Exam: GENERAL: The patient is intubated and sedated HEENT: Pupils are round and equally reacting to light. EOMI. No scleral icterus. No conjunctival pallor. Normocephalic, atraumatic. No pharyngeal erythema. No thyromegaly. CARDIOVASCULAR: S1 and S2 present. No murmurs, rubs, or gallops. PULMONARY: Decreased air entry with scattered wheezing and bilateral crepitation ABDOMEN: Soft, nontender, nondistended, normoactive bowel sounds. No palpable organomegaly. MUSCULOSKELETAL: No joint swelling or deformity. EXTREMITIES: No cyanosis, clubbing, or pedal edema. Multiple bilateral leg ulc ers including both heels and right lateral willis with large scabbing noted over entire surface of the wound. No drainage or surrounding redness or erythema noted. No evidence of overt surrounding cellulitis NEUROLOGICAL: Gross neurological examination did not reveal any focal deficits. Unable to assess as patient is on sedation SKIN: No rashes. no petechiae. Assessment: Acute hypoxic respiratory failure requiring intubation and mechanical ventilation COPD with exacerbation Multiple pressure ulcers with suspected infection Aflutter with RVR Moderate calorie malnutrition with a BMI of 21.1 multiple leg wounds focal scar versus speculated nodule in the right upper lobe, will need outpatie nt PET scan History of hypertension, currently he is hypotensive Hyperlipidemia Dehydration Chronic altered mental status with some elements of acute related to metabolic encephalopathy. Possible dementia History of osteoarthritis History of chronic nonpressure ulcer of the back DVT prophylaxis: Subcutaneous Lovenox GI Prophylaxis: Pepcid Full code Plan: This is a pleasant 71 years old male who presents with COPD acute exacerbation and respiratory status declined and patient brought to the ICU and placed on mechanical ventilator and sedated. Currently remains on 30% FI02 and peep being adjusted from 8 down to 6. No plans for weaning at this time. 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 Further recommendations depends on the clinical course of the patient Overall Prognosis is extremely poor and guarded CODE STATUS Full code per per staff The impression and plan of care has been dictated by Lucy Reyes, Nurse Practitioner as directed. Dr. Bharat MD I have performed a history and examination and MDM of this patient, discussed the same with the dictator, and agree with the dictator's assessment and plan as written ,documented as a scribe. Based on total visit time, I have performed more than 50% of the visit. Objective - Vital Signs Vital signs: Vital Signs Temp 98.3 F 08/22/21 04:00 Pulse 114 H 08/22/21 08:18 Resp 28 H 08/22/21 07:00 BP 115/73 08/22/21 07:00 Pulse Ox 97 08/22/21 07:00 FiO2 30 08/22/21 07:24 Intake & Output 08/21/21 08/22/21 08/22/21 18:59 06:59 18:59 Intake Total 4200.675 5355.482 86 Output Total 750 690 60 Balance 1071.692 578.482 26 Weight 59.3 kg Intake: IV 1000 650 50 Piperacillin-Tazobactam 3 100 100 .375 gm In Sodium Chloride 0.9% 100 ml @ 25 mls/hr IVPB Q8HR [facility] Rx# :[id number] Sodium Chloride 0.9% 1, 900 550 50 000 ml @ 50 mls/hr IV . Q20H [facility] Rx#:[id number] Intake, IV Titration 263.692 194.482 Amount Sodium Chloride 0.9% 1, 100 000 ml @ 50 mls/hr IV . Q20H [facility] Rx#:[id number] propofoL 1,000 mg In 163.692 194.482 Empty Bag 1 bag @ 5 MCG/ KG/MIN 1.629 mls/hr IV . Q24H [facility] Rx#:[id number] Tube Feeding 468 324 36 Other 90 100 Output: Urine 750 690 60 Other: Voiding Method Indwelling Catheter Indwelling Catheter ABP, PAP, CO, CI - Last Documented Arterial Blood Pressure 139/51 - Labs CBC & Chem 7: 08/22/21 04:45 08/22/21 04:45 Labs: Abnormal Lab Results - Last 24 Hours (Table) 08/21/21 08/21/21 08/21/21 Range/Units 11:20 17:29 23:33 RBC (4.30-5.90) m/uL Hgb (13.0-17.5) gm/dL Hct (39.0-53.0) % MCHC (31.0-37.0) g/dL RDW (11.5-15.5) % Plt Count (150-450) k/uL ABG pH (7.35-7.45) ABG pO2 (83-108) mmHg ABG HCO3 (21-25) mmol/L ABG O2 Saturation (94-97) % Sodium (137-145) mmol/L Chloride (98-107) mmol/L Carbon Dioxide (22-30) mmol/L BUN (9-20) mg/dL Glucose (74-99) mg/dL POC Glucose (mg/dL) 147 H 138 H 125 H (75-99) mg/dL Calcium (8.4-10.2) mg/dL 08/22/21 08/22/2122 Range/Units 04:45 04:45 05:09 RBC 2.42 L (4.30-5.90) m/uL Hgb 7.2 L (13.0-17.5) gm/dL Hct 23.8 L (39.0-53.0) % MCHC 30.4 L (31.0-37.0) g/dL RDW 19.5 H (11.5-15.5) % Plt Count 141 L (150-450) k/uL ABG pH (7.35-7.45) ABG pO2 (83-108) mmHg ABG HCO3 (21-25) mmol/L ABG O2 Saturation (94-97) % Sodium 146 H (137-145) mmol/L Chloride 120 H (98-107) mmol/L Carbon Dioxide 20 L (22-30) mmol/L BUN 38 H (9-20) mg/dL Glucose 127 H (74-99) mg/dL POC Glucose (mg/dL) 153 H (75-99) mg/dL Calcium 7.2 L (8.4-10.2) mg/dL 08/22/21 Range/Units 05:38 RBC (4.30-5.90) m/uL Hgb (13.0-17.5) gm/dL Hct (39.0-53.0) % MCHC (31.0-37.0) g/dL RDW (11.5-15.5) % Plt Count (150-450) k/uL ABG pH 7.30 L (7.35-7.45) ABG pO2 116 H (83-108) mmHg ABG HCO3 20 L (21-25) mmol/L ABG O2 Saturation 98.9 H (94-97) % Sodium (137-145) mmol/L Chloride (98-107) mmol/L Carbon Dioxide (22-30) mmol/L BUN (9-20) mg/dL Glucose (74-99) mg/dL POC Glucose (mg/dL) (75-99) mg/dL Calcium (8.4-10.2) mg/dL Microbiology - Last 24 Hours (Table) 08/18/21 06:04 Blood Culture - Preliminary Blood No Growth after 96 hours 08/19/21 12:06 Gram Stain - Final Sputum Sputum Culture - Final Corynebacterium striatum
[2021-08-23 00:02] LABS: Glucose,Whole Blood 165 mg/dL (75-99)
[2021-08-23] MEDS: PIPERACILLIN-TAZOBACTAM 3.375 GM in SODIUM CHLORIDE 0.9% 100 ML IVPB SCH ×3 (00:10→16:06)
[2021-08-23] MEDS: INSULIN ASPART (NovoLOG) 100 UNIT/ML VIAL SQ SCH ×4 (00:10→18:25)
[2021-08-23] MEDS: methylPREDNISolone SOD SUCCI 125 MG/2 ML VIAL IV SCH ×4 (00:10→17:24)
[2021-08-23] MEDS: IPRATROPIUM-ALBUTEROL 3 ML NEB INHALATION SCH ×7 (00:11→23:58)
[2021-08-23] MEDS: HYDROmorphone 1 MG/ML 1 ML SYRINGE IVP PRN ×6 (00:30→21:23)
[2021-08-23 05:14] LABS: African American GFR (CKD) >90 (>60 ml/min/1.73 sqM); Anion Gap 4 mmol/L; Blood Urea Nitrogen 40 mg/dL (9-20); Calcium 7.5 mg/dL (8.4-10.2); Carbon Dioxide 22 mmol/L (22-30); Chloride 121 mmol/L (98-107); Glucose 153 mg/dL (74-99); Non-African American GFR(CKD) 79 (>60 ml/min/1.73 sqM); Sodium 147 mmol/L (137-145)
[2021-08-23 05:48] LABS: Anisocytosis Slight; Basophils % (A) 0 %; Eosinophils % (A) 0 %; HCT 24.2 % (39.0-53.0); HGB 7.3 gm/dL (13.0-17.5); Hypochromasia Marked; Lymphocytes # (A) 0.3 k/uL (1.0-4.8); Lymphocytes % (A) 2 %; MCH 29.6 pg (25.0-35.0); MCHC 30.3 g/dL (31.0-37.0); MCV 97.8 fL (80.0-100.0); Macrocytosis Slight; Mean Platelet Volume 11.4; Monocytes # (A) 0.2 k/uL (0-1.0); Monocytes % (A) 2 %; Neutrophils % (A) 96 %; Platelet Count 160 k/uL (150-450); RBC 2.47 m/uL (4.30-5.90); RDW 19.8 % (11.5-15.5); WBC 12.6 k/uL (3.8-10.6)
[2021-08-23 05:53] LABS: Glucose,Whole Blood 147 mg/dL (75-99)
[2021-08-23 06:00] LABS: ABG Base Excess -3.8 mmol/L; ABG HCO3 22 mmol/L (21-25); ABG Oxygen Saturation 98.1 % (94-97); ABG PCO2 43 mmHg (35-45); ABG PH 7.32 (7.35-7.45); ABG PO2 92 mmHg (83-108); ABG TCO2 24 mmol/L (19-24)
[2021-08-23 06:04] LABS: Allen Test Performed? No
[2021-08-23] MEDS: LEVOTHYROXINE 50 MCG TAB PO SCH (06:21)
[2021-08-23] MEDS: ENOXAPARIN 60 MG/0.6 ML SYRINGE SQ SCH ×2 (08:13→20:22)
[2021-08-23] MEDS: FAMOTIDINE 20 MG TAB PO SCH (08:16)
[2021-08-23] MEDS: METOPROLOL TARTRATE 50 MG TAB PO SCH ×2 (08:16→20:22)
[2021-08-23] MEDS: CHLORHEXIDINE GLUCONATE 15 ML CUP MUCOUS MEM SCH ×2 (08:16→20:22)
[2021-08-23] MEDS: AMIODARONE 200 MG TAB PO SCH ×2 (08:16→20:22)
--- NOTE | 2021-08-23 08:27 | XR ---
EXAMINATION TYPE: XR chest 1V portable DATE OF EXAM: 08/23/2021 COMPARISON: X-ray dated 08/22/2021 HISTORY: Tube placement TECHNIQUE: Single frontal view of the chest is obtained. FINDINGS: The tip of the endotracheal tube is about 3.2 cm proximal to the josette. Good position of the NG tube and left subclavian line. Slightly more prominent left lower lung zone patchy opacity with newly seen small opacity in the righ t lower lung zone. Infection cannot be excluded, please correlate clinically. Suspected small pleural effusions. Unchanged cardiomediastinal silhouette, aortic atherosclerotic diomedes cifications and bony thoracic cage. IMPRESSION: Mild interval changes as described above.
--- NOTE | 2021-08-23 08:59 | P.PN ---
Subjective Progress Note Date: 08/23/21 The patient is 71-year-old male who is currently admitted to the hospital with hypoxic respiratory failure secondary to COPD exacerbation. Cardiology was consulted for atrial fibrillation. The patient received IV bolus of amiodarone and is currently on 400 mg oral. Echocardiogram revealed LV function of 50% with moderate aortic stenosis, moderate aortic insufficiency, and moderate mitral regurgitation. The patient was examined in the ICU. The patient is currently mechanically ventilated and sedated on propofol. He converted back to sinus rhythm overnight. GENERAL: Ill-appearing, sedated. NECK: Supple without JVD or thyromegaly. LUNGS: Breath sounds diminished to auscultation bilaterally. Respiration equal and unlabored. No wheezes, rales or rhonchi. HEART: Irregular rate and rhythm. Systolic ejection murmur. No rubs or gallops. S1 and S2 heard. EXTREMITIES: Limited range of motion, generalized edema. Wound noted on right lateral lower extremity. No clubbing or cyanosis. Peripheral pulses intact and strong. VITALS: Blood pressure 154/45, pulse 75, respiratory rate 24, temperature 98.4F, SpO2 96% on mechanical ventilation TELEMETRY: Sinus rhythm in the 70s LABS: WBC 12.6, hemoglobin 7.3, hematocrit 24.2, platelet 160, sodium 147, potassium 4.0, BUN 40, creatinine 0.97 IMPRESSION: Atrial flutter/Atrial fibrillation, converted back to sinus rhythm on amiodarone Hypertension, uncontrolled overnight, start amlodipine 5 mg daily Valvular heart disease COPD exacerbation Anemia PLAN: Start amlodipine 5 mg daily for hypertension Continue oral amiodarone. Decisions regarding long-term oral antiarrhythmic to be determined based upon clinical course. Continue Lovenox for anticoagulation. Transition to novel agent once extubated. Further recommendations to be based on clinical course. I am dictating on behalf of Dr John Hutchison's history/physical and assessment/plan. Objective - Vital Signs Vital signs: Vital Signs Temp 98.4 F 08/23/21 08:00 Pulse 75 08/23/21 08:00 Resp 24 08/23/21 08:00 BP 101/62 08/22/21 23:55 Pulse Ox 96 08/23/21 08:00 FiO2 30 08/23/21 08:00 Intake & Output 08/22/21 08/23/21 08/23/21 18:59 06:59 18:59 Intake Total 9144.969 7800.082 366.785 Output Total 650 865 140 Balance 438.437 168.082 226.785 Weight 59.3 kg 59.8 kg Intake: IV 460 320 140 Piperacillin-Tazobactam 3 100 100 100 .375 gm In Sodium Chloride 0.9% 100 ml @ 25 mls/hr IVPB Q8HR [facility] Rx# :[id number] Sodium Chloride 0.9% 1, 360 220 40 000 ml @ 20 mls/hr IV . Q24H [facility] Rx#:[id number] Intake, IV Titration 196.437 227.082 95.785 Amount propofoL 1,000 mg In 196.437 227.082 95.785 Empty Bag 1 bag @ 5 MCG/ KG/MIN 1.629 mls/hr IV . Q24H [facility] Rx#:[id number] Tube Feeding 402 396 71 Other 30 90 60 Output: Urine 650 865 140 Other: Voiding Method Indwelling Catheter Indwelling Catheter Indwelling Catheter ABP, PAP, CO, CI - Last Documented Arterial Blood Pressure 154/45 - Labs CBC & Chem 7: 08/23/21 04:39 08/23/21 04:39 Labs: Abnormal Lab Results - Last 24 Hours (Table) 08/22/21 08/22/21 08/22/21 Range/Units 11:13 13:38 17:39 WBC (3.8-10.6) k/uL RBC (4.30-5.90) m/uL Hgb (13.0-17.5) gm/dL Hct (39.0-53.0) % MCHC (31.0-37.0) g/dL RDW (11.5-15.5) % Neutrophils # (1.3-7.7) k/uL Lymphocytes # (1.0-4.8) k/uL ABG pH 7.32 L (7.35-7.45) ABG O2 Saturation 98.6 H (94-97) % Sodium (137-145) mmol/L Chloride (98-107) mmol/L BUN (9-20) mg/dL Glucose (74-99) mg/dL POC Glucose (mg/dL) 192 H 174 H (75-99) mg/dL Calcium (8.4-10.2) mg/dL 08/23/21 08/23/21 08/23/21 Range/Units 00:01 04:39 04:39 WBC 12.6 H (3.8-10.6) k/uL RBC 2.47 L (4.30-5.90) m/uL Hgb 7.3 L (13.0-17.5) gm/dL Hct 24.2 L (39.0-53.0) % MCHC 30.3 L (31.0-37.0) g/dL RDW 19.8 H (11.5-15.5) % Neutrophils # 12.0 H (1.3-7.7) k/uL Lymphocytes # 0.3 L (1.0-4.8) k/uL ABG pH (7.35-7.45) ABG O2 Saturation (94-97) % Sodium 147 H (137-145) mmol/L Chloride 121 H (98-107) mmol/L BUN 40 H (9-20) mg/dL Glucose 153 H (74-99) mg/dL POC Glucose (mg/dL) 165 H (75-99) mg/dL Calcium 7.5 L (8.4-10.2) mg/dL 08/23/21 08/23/21 Range/Units 05:46 05:51 WBC (3.8-10.6) k/uL RBC (4.30-5.90) m/uL Hgb (13.0-17.5) gm/dL Hct (39.0-53.0) % MCHC (31.0-37.0) g/dL RDW (11.5-15.5) % Neutrophils # (1.3-7.7) k/uL Lymphocytes # (1.0-4.8) k/uL ABG pH 7.32 L (7.35-7.45) ABG O2 Saturation 98.1 H (94-97) % Sodium (137-145) mmol/L Chloride (98-107) mmol/L BUN (9-20) mg/dL Glucose (74-99) mg/dL POC Glucose (mg/dL) 147 H (75-99) mg/dL Calcium (8.4-10.2) mg/dL Microbiology - Last 24 Hours (Table) 08/18/21 06:04 Blood Culture - Preliminary Blood No Growth after 120 hours
[2021-08-23] MEDS ORDERED: amLODIPine 5 MG TAB PO SCH (09:00)
[2021-08-23] MEDS: FORMOTEROL FUMARATE 20 MCG/2 ML NEBU INHALATION SCH ×2 (09:04→20:02)
[2021-08-23] MEDS: BUDESONIDE 1 MG/2 ML NEBU INHALATION SCH ×2 (09:04→19:52)
--- NOTE | 2021-08-23 10:06 | P.PN ---
Subjective Progress Note Date: 08/23/21 71-year-old male patient with known history of severe end-stage COPD, with a baseline FEV1 of 0.67 L or 25% predicted as November 2020 PFT, on home oxygen patient usually wears 3 L of oxygen on a regular basis, ex-smoker, chronic dyspnea, hypertension, hyperlipidemia, osteoarthritis, cachexia, chronic nonhealing ulcers involving bilateral feet. Patient was recently required hospitalization in the last several weeks at the [facility] when he required mechanical ventilator support. Patient follows with Dr. Hall in the pulmonary clinic. On 08/17/2021 patient presents to the emergency department from a [place] [facility] because of weakness and fatigue. Patient was also complaining of some chest discomfort in the morning, and shortness of breath. Denied any recent fever or chills. No worsening cough wheezing or phlegm production. No hemoptysis. Chest x-ray showed small bilateral pleural effusions with minimal subsegmental atelectasis at the left base. EKG showed sinus rhythm, with minimal ST depression in inferior leads, and T-wave inversion in aVL and LVH. Laboratory evaluation showed elevated white count of 17.7, hemoglobin of 10.0, platelet count of 285, d-dimer was mildly elevated to 0.97, sodium is 144, potassium is 5.1, BUN of 32, creatinine 0.69, 2 sets of troponins were negative at 0.020, less than 0.012, pro-calcitonin level was elevated to 0.50, TSH was within normal limits, LFTs were within normal limits, plasma lactic acid was 1.3 urinalysis without sign of infection. CT angiogram of the chest showed no evidence of acute pulmonary embolism, and moderate emphysematous change with small size right greater than left pleural effusions. There was foc al scarring versus spiculated nodule in the posterior right upper lobe which is new from 2014 study with recommendation of follow-up PET scan. Patient is currently on 3 L of oxygen pulse ox is 99%, he is very short of breath at rest, but appears to be in no acute distress, he is able to answer some simple questions, but he does have conversational dyspnea as well. Afebrile, he is tachycardic, cardiology has been consulted for SVT. Patient is on amiodarone infusion at 1 mg/m for rate control, he is on empiric antibiotics and breathing treatments and IV steroids. The patient is seen today 08/19/2021 in follow-up on the selective care unit. Upon arrival the patient was quite obtunded and unarousable and breathing shallow. He was immediately transferred to the intensive care unit requiring emergent intubation and placed on the mechanical ventilator. Initial settings included assist control mode with a rate of 20, tidal volume 350, FiO2 100% and a PEEP of 5. Left subclavian triple-lumen catheter place. Right radial arterial line placed. Arterial blood gases revealed a PaO2 of 124, pCO2 of 65 and a pH of 7.19. His respiratory rate was increased to 28. PEEP increased to 8. Plans to titrate down the FiO2. White count 11.6. Hemoglobin 8.6. Platelets 256. Sodium 143. Potassium 4.9. Chloride 113. BUN 44. Creatinine 1.42. Glucose 134. AST 42. ALT 195. Albumin 2.8. He is currently sedated on propofol at 50 mcg/kg/m. To be given 1-2 L of fluid resuscitation. Chest x-ray reveals no evidence of pneumothorax, satisfactory positioning of the endotracheal and orogastric tubes. There is worsening left lung edema/infiltrates. Improved aeration of the right lung base. Augmentin discontinued. Initiated on Zosyn. Pro-calcitonin pending. Culture revealing no growth to date. He was initially in atrial fibrillation requiring amiodarone . He is continued on bronchodilators, IV Solu-Medrol. He remains in a positive balance. The patient is seen today 08/20/2021 in follow-up in the intensive care unit. He remains intubated on mechanical ventilator. Still notices control mode with a rate of 28, attentive on 350, FiO2 40% and a PEEP of 8. Morning blood gases revealed a PaO2 of 113, pCO2 42, pH 7.32. He remains sedated on propofol at 75 mcg/kg/m. He has normal saline running at 100 ML's per hour. He is being nourished with vital HPI at 20 ML's per hour with a goal of 36. He is on antibiotics in the form of Zosyn. He is continued on DuoNeb inhalations, Pulmicort and Perforomist inhalations, IV Solu-Medrol. Chest x-ray continues to show mildly improved aeration in the left lung with persistent multifocal airspace opacities. Small bilateral effusions left greater than right. Evidence of COPD. Endotracheal, nasogastric tubes and left central venous catheter all in appropriate position. Blood culture reveals no growth to date. Sputum cultures pending. White count 8.3. Hemoglobin 7.1. Platelets 188. Sodium 143. Potassium 4.8. Chloride 116. Bicarb 21. BUN 44. Creatinine 1.44. Glucose 156. Currently in a +2.5 L. Currently in sinus rhythm. He remains on oral amiodarone. Lovenox for DVT prophylaxis. The patient is seen today 08/21/2021 in follow-up in the intensive care unit. He remains intubated on mechanical ventilator. Currently an assist-control mode. Rate of 28, tidal volume 350, FiO2 35% and a PEEP of 8. Morning blood gases revealed a PaO2 of 108, pCO2 42 and a pH of 7.31. He remains sedated on propofol at 75 mcg/kg/m. He has normal saline at 100 ML's per hour. He is being nourished with vital HPI at 36 ML's per hour. Chest x-ray can continues to show some improvement in the left lower lung. He remains on Zosyn. Endotracheal tube to be advanced 2 cm. Pro-calcitonin was 0.41. Blood culture reveals no growth. Sputum culture pending. White count 6.6. Hemoglobin 7.5. Platelets 163. Sodium 142. Potassium 4.2. Bicarb 21. BUN 39. Creatinine 1.26. Glucose 202. He is currently in a +3.2 L balance. He remains on DuoNeb inhalations, Pulmicort and Perforomist inhalations, IV Solu-Medrol. Antibiotics in the form of Zosyn. Lovenox for DVT prophylaxis. He remains hemodynamically stable. 08/22/2021, the patient is being seen for a follow-up. As mentioned, a 71-year-old male patient with advanced COPD with an FEV1 of 0.67 L benefit 1 of around 25% of predicted, with known history of chronic hypoxic respiratory failure maintained on oxygen at 3 L and currently the patient intubated on a mechanical ventilator. He is on propofol running at [place] micrograms per kilogram per minute. The patient is an assist-control mode of mechanical ventilation at the rate of 28 with a tidal volume of 350 and FiO2 of 30% with a PEEP of 8. Peak airway pressure is around 26-30. The patient has an auto PEEP which is in the order of 3 cm of water. The blood gases from today shows a pH of 7.30 with a pCO2 of 40 and pO2 of 116. His serum bicarbonate is at 20, and the patient could have been potentially a CO2 retainer with chronic metabolic alkalosis and this can be relative acidosis. The rest of the blood work shows a sodium level of 146, potassium of 3.7, BUN of 38 with a creatinine of 0.9. The white cell count is at 9 with a hemoglobin of 7.2. The patient is currently covered empirically with IV Zosyn. The chest x-ray from today is showing adequate positioning of the ET tube. The patient has bilateral lower lobe small pleural effusions. No major interval change compared to yesterday. He remains on DuoNeb nebulized treatments around the clock. Remains on IV Solu-Medrol and remains on IV Zosyn. The pro-calcitonin level was at 0.631 at a time of admission. Lactic acid level was nonelevated the time of admission. The patient has a flutter rhythm and currently is on oral amiodarone. He is also on anticoagulation with Lovenox 50 mg subcu every 12 hours under the recommendations of cardiology. Note that the patient also has chronic once and the wounds are multiple involving the right forearm where he is a skin tear, right calf ulcer, right willis, left thigh, left foot and left elbow and he also has a sacral wound stage II. None of these wounds are draining. The one on his right willis is covered with a rather thick scab which is extending in the area under his knee to the mid the patient is also on goal enteral feeding and the pa tient is currently on vital high protein right running at the rate of 36. Neck 2021, the patient remains intubated on a mechanical ventilator. This morning, he remains on propofol running at 60 mcg/kg per minute. The patient is quite sensitive a mechanical ventilator. He remains on assist control mode at the rate of 40 with a tidal volume of 325 with an FiO2 of 30% and a PEEP of 6. Peak airway pressures around 25. His I:E ratio is 1-6. No significant rest or secretions. Blood gases showed a pH of 7.32 with a pCO2 of 43 and pO2 of 92. The patient remains on assist control mode of mechanical ventilation, volume cycle. The chest x-ray is not showing any acute abnormalities. ET tube is in a good location. There is hyperinflation consistent with COPD. There is also increased haziness in lung bases bilaterally compared to yesterday chest x-ray, possibly some effusion/pulmonary vessel congestion.. Note that the patient remains on IV Zosyn. His pro-calcitonin level at the time of admission was 0.631. His lactic acid level was nonelevated. He remains in atrial flutter rhythm with a controlled rate. No major changes in his condition since yesterday. He is receiving enteral feeding for nutritional support and currently he is on [employer] running good today shows 36. The patient is afebrile. The patient is hemodynamically stable. The patient is on no pressors for now. In terms of his cardiac status, the patient remains on oral amiodarone and Lopressor and the patient is also on Lovenox 50 mg subcu every 12 hours per cardiology as an anticoagulant. He does have multiple wounds throughout his lower extremity and upper extremity and the sacrum. He is extensively debilitated. His blood work from today showing a sodium level of 147, potassium of 4 Cardizem 121 with a BUN of 40 and a creatinine of 0.9. Blood sugar is 153. The white cell count is currently at 12.6 with a hemoglobin of 7.3 and a platelet count of 160s . Upon further inspection, the right leg wounds which has a large eschar is draining some purulent material and this needs to be further debrided. Objective - Vital Signs Vital signs: Vital Signs Temp 98.4 F 08/23/21 08:00 Pulse 67 08/23/21 09:16 Resp 14 08/23/21 09:16 BP 101/62 08/22/21 23:55 Pulse Ox 96 08/23/21 08:00 FiO2 30 08/23/21 08:00 Intake & Output 08/22/21 08/23/21 08/23/21 18:59 06:59 18:59 Intake Total 3289.340 2759.082 366.785 Output Total 650 865 140 Balance 438.437 168.082 226.785 Weight 59.3 kg 59.8 kg Intake: IV 460 320 140 Piperacillin-Tazobactam 3 100 100 100 .375 gm In Sodium Chloride 0.9% 100 ml @ 25 mls/hr IVPB Q8HR [facility] Rx# :[id number] Sodium Chloride 0.9% 1, 360 220 40 000 ml @ 20 mls/hr IV . Q24H [facility] Rx#:[id number] Intake, IV Titration 196.437 227.082 95.785 Amount propofoL 1,000 mg In 196.437 227.082 95.785 Empty Bag 1 bag @ 5 MCG/ KG/MIN 1.629 mls/hr IV . Q24H [facility] Rx#:[id number] Tube Feeding 402 396 71 Other 30 90 60 Output: Urine 650 865 140 Other: Voiding Method Indwelling Catheter Indwelling Catheter Indwelling Catheter ABP, PAP, CO, CI - Last Documented Arterial Blood Pressure 154/45 - Exam GENERAL EXAM: Intubated, sedated cachectic-looking 71-year-old male. HEAD: Normocephalic/atraumatic. EYES: Normal reaction of pupils, equal size. Conjunctiva pink, sclera white. NOSE: Clear with pink turbinates. THROAT: No erythema or exudates. NECK: No masses, no JVD, no thyroid enlargement, no adenopathy. CHEST: No chest wall deformity. Symmetrical expansion. LUNGS: Equal air entry with diffuse crackles, diminished breath sounds CVS: Regular rate and rhythm, normal S1 and S2, no gallops, no murmurs, no rubs ABDOMEN: Soft, nontender. No hepatosplenomegaly, normal bowel sounds, no guarding or rigidity. EXTREMITIES: No clubbing, no edema, no cyanosis, 2+ pulses and upper and lower extremities. MUSCULOSKELETAL: Muscle strength and tone normal. SPINE: No scoliosis or deformity SKIN: No rashes CENTRAL NERVOUS SYSTEM: Sedated. Tone is normal in all 4 extremities. PSYCHIATRIC: Unable to assess - Labs CBC & Chem 7: 08/23/21 04:39 08/23/21 04:39 Labs: Abnormal Lab Results - Last 24 Hours (Table) 08/22/21 08/22/21 08/22/21 Range/Units 11:13 13:38 17:39 WBC (3.8-10.6) k/uL RBC (4.30-5.90) m/uL Hgb (13.0-17.5) gm/dL Hct (39.0-53.0) % MCHC (31.0-37.0) g/dL RDW (11.5-15.5) % Neutrophils # (1.3-7.7) k/uL Lymphocytes # (1.0-4.8) k/uL ABG pH 7.32 L (7.35-7.45) ABG O2 Saturation 98.6 H (94-97) % Sodium (137-145) mmol/L Chloride (98-107) mmol/L BUN (9-20) mg/dL Glucose (74-99) mg/dL POC Glucose (mg/dL) 192 H 174 H (75-99) mg/dL Calcium (8.4-10.2) mg/dL 08/23/21 08/23/21 08/23/21 Range/Units 00:01 04:39 04:39 WBC 12.6 H (3.8-10.6) k/uL RBC 2.47 L (4.30-5.90) m/uL Hgb 7.3 L (13.0-17.5) gm/dL Hct 24.2 L (39.0-53.0) % MCHC 30.3 L (31.0-37.0) g/dL RDW 19.8 H (11.5-15.5) % Neutrophils # 12.0 H (1.3-7.7) k/uL Lymphocytes # 0.3 L (1.0-4.8) k/uL ABG pH (7.35-7.45) ABG O2 Saturation (94-97) % Sodium 147 H (137-145) mmol/L Chloride 121 H (98-107) mmol/L BUN 40 H (9-20) mg/dL Glucose 153 H (74-99) mg/dL POC Glucose (mg/dL) 165 H (75-99) mg/dL Calcium 7.5 L (8.4-10.2) mg/dL 08/23/21 08/23/21 Range/Units 05:46 05:51 WBC (3.8-10.6) k/uL RBC (4.30-5.90) m/uL Hgb (13.0-17.5) gm/dL Hct (39.0-53.0) % MCHC (31.0-37.0) g/dL RDW (11.5-15.5) % Neutrophils # (1.3-7.7) k/uL Lymphocytes # (1.0-4.8) k/uL ABG pH 7.32 L (7.35-7.45) ABG O2 Saturation 98.1 H (94-97) % Sodium (137-145) mmol/L Chloride (98-107) mmol/L BUN (9-20) mg/dL Glucose (74-99) mg/dL POC Glucose (mg/dL) 147 H (75-99) mg/dL Calcium (8.4-10.2) mg/dL Microbiology - Last 24 Hours (Table) 08/18/21 06:04 Blood Culture - Preliminary Blood No Growth after 120 hours Assessment and Plan Plan: 1 Acute exacerbation of COPD with acute hypoxemic respiratory failure requiring intubation and mechanical ventilation on 08/19/2021 chest x-ray showing bilateral lower lobe infiltrates/effusions. The blood gas and a chest x-ray was noted. The necessity ventilator changes were done. 2 A flutter with RVR, currently in sinus rhythm, on oral amiodarone, Lovenox 3 History of severe end-stage COPD with baseline FEV1 of 25% of predicted 4 Chronic hypoxic respiratory failure related to the above 5 Former smoker 6 Nonhealing bilateral lower extremity ulcers 7 Elevated pro-calcitonin level, rule out possibility of infection, currently on Zosyn 8 Mildly elevated d-dimer, with no CT evidence of pulmonary embolism 9 Focal scarring versus spiculated nodule in the right upper lobe, will need outpatient follow-up, and possible PET scan 10 Chronic cachexia 11 Hypertension 12 Hyperlipidemia 13 Hypothyroidism 14 Osteoarthritis 15 hyperchloremic hypernatremia, mild Plan: Keep the patient on sedation Keep the rate of 14 and increase the tidal volume of 375 Sedation holiday Assessment weaning parameters This will be a very difficult extubation based on his advanced COPD and comorbidities. He is extremely cachectic and emaciated. I would like to have a discussion with his family in touch base and explained to them the critical nature of the problem and his poor prognosis. He is a [place] [facility] resident and is been essentially debilitated over this past several years. Change IV fluids I water at the rate of 100 mL an hour which Remains on Zosyn, DuoNeb inhalations Continue Pulmicort and Perforomist inhalations, IV Solu-Medrol Continue with daily interruption of sedation Overall prognosis remains quite guarded Continue enteral feeding for nutritional support Continue thyroid hormone replacement Continue amiodarone continue Lovenox Condition is critical. We'll continue to follow. No plans for extubation her weaning. [facility] general surgery for wound debridement Critically care evaluation was done and more than 30 minutes. Time with Patient: Greater than 30
[2021-08-23] MEDS: DEXTROSE 5% IN WATER 1,000 ML IV SCH ×2 (10:24→20:23)
[2021-08-23 11:30] LABS: Glucose,Whole Blood 165 mg/dL (75-99)
--- NOTE | 2021-08-23 13:35 | P.GSCN ---
History of Present Illness Consult date: 08/23/21 History of present illness: CHIEF COMPLAINT: Weakness Reason for consult: Right leg wound with possible debridement HISTORY OF PRESENT ILLNESS: This is a 71-year-old male who presented to the hospital with complaints of weakness and fatigue. Patient had evidence of COPD exacerbation with respiratory failure requiring to be intubated and on mechanical ventilation since 08/19/2021. Also concerns for possible aspiration pneumonia. Patient also has atrial flutter and is on Lovenox 50 mg subcu every 12 hours. Patient recent hospitalization at [facility] for an aspiration pneumonia. Patient remains in the ICU. He has a significant pressure ulcer on the lateral aspect of the right leg. Surgical service was consulted for debridement of the right leg wound. Patient seen and examined with Dr. corbin PAST MEDICAL HISTORY: COPD, hypertension, hyperlipidemia, osteoarthritis, cachexia, chronic nonhealing ulcers bilateral feet. PAST SURGICAL HISTORY: See list. MEDICATIONS: See list. ALLERGIES: See list. SOCIAL HISTORY: No illicit drug use. REVIEW OF SYSTEMS: CONSTITUTIONAL: Denies fever or chills. HEENT: Denies blurred vision, vision changes, or eye pain. Denies hemoptysis CARDIOVASCULAR: Denies chest pain or pressure. RESPIRATORY: No shortness of breath. GASTROINTESTINAL: See HPI for pertinent findings HEMATOLOGIC: Denies bleeding disorders. GENITOURINARY: Denies any blood in urine or increased urinary frequency. SKIN: Denies pruitis. Denies rash. PHYSICAL EXAM: VITAL SIGNS: Reviewed GENERAL: No acute distress HEENT: No sclera icterus. Extraocular movements grossly intact. Moist buccal mucosa. Head is atraumatic, normocephalic. No nasal drainage. ABDOMEN: Soft. Nondistended. Nontender NEUROLOGIC: intubated and sedated Extremities: Lateral aspect of the right lower leg has a 10 cm pressure wound. Large scab. There is some purulent drainage noted. LABORATORY DATA: WBC is 12.6 Hgb 7.3 platelets 160 Na 147 potassium 4.0 creatinine 0.97 IMAGING: ASSESSMENT: 1. Right lower leg pressure ulcer PLAN: -Patient scheduled for debridement of right lower leg pressure ulcer tomorrow, 08/24/[address] 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 Signing provider agrees with the documented findings, assessment, and plan of care. Past Medical History Past Medical History: COPD, Hyperlipidemia, Hypertension, Osteoarthritis (OA) Additional Past Medical History / Comment(s): Anemia, Metabolic Encaphalopathy, Acute kidney failure with tubular necrosis, Cachexia, Chronic non-pressure ulcer of back, Rhabdomylosis, History of Any Multi-Drug Resistant Organisms: None Reported Past Surgical History: No Surgical Hx Reported Additional Past Surgical History / Comment(s): colonoscopy Past Anesthesia/Blood Transfusion Reactions: No Reported Reaction Past Psychological History: No Psychological Hx Reported Smoking Status: Former smoker Past Alcohol Use History: Unable to Obtain Past Drug Use History: None Reported Medications and Allergies Home Medications Medication Instructions Recorded Confirmed Type Acetaminophen Tab [Tylenol] 650 mg PO Q4H PRN 08/17/21 08/17/21 History Albuterol Inhaler [Ventolin Hfa 2 puff INHALATION RT-Q6H PRN 08/17/21 08/17/21 History Inhaler] Budesonide [Pulmicort] 0.5 mg INHALATION RT-BID 08/17/21 08/17/21 History Cephalexin [Keflex] 500 mg PO QID 08/17/21 08/17/21 History Levothyroxine Sodium [Synthroid] 50 mcg PO DAILY@0500 08/17/21 08/17/21 History Metoprolol Tartrate [Lopressor] 25 mg PO TID@0700,1300,1900 08/17/21 08/17/21 History amLODIPine [Norvasc] 10 mg PO DAILY 08/17/21 08/17/21 History hydrALAZINE HCL [Apresoline] 100 mg PO TID@0500,1300,2100 08/17/21 08/17/21 History traMADol HCL 50 mg PO Q6H PRN 08/17/21 08/17/21 History Allergies Allergy/AdvReac Type Severity Reaction Status Date / Time No Known Allergies Allergy Verified 08/17/21 14:21 Surgical - Exam Vital Signs Temp Pulse Resp BP Pulse Ox 98.4 F 84 20 141/64 97 08/17/21 13:47 08/17/21 13:47 08/17/21 13:47 08/17/21 13:47 08/17/21 13:47 Results - Labs 08/23/21 04:39 08/23/21 04:39 Abnormal Lab Results - Last 24 Hours (Table) 08/22/21 08/22/21 08/23/21 Range/Units 13:38 17:39 00:01 WBC (3.8-10.6) k/uL RBC (4.30-5.90) m/uL Hgb (13.0-17.5) gm/dL Hct (39.0-53.0) % MCHC (31.0-37.0) g/dL RDW (11.5-15.5) % Neutrophils # (1.3-7.7) k/uL Lymphocytes # (1.0-4.8) k/uL ABG pH 7.32 L (7.35-7.45) ABG O2 Saturation 98.6 H (94-97) % Sodium (137-145) mmol/L Chloride (98-107) mmol/L BUN (9-20) mg/dL Glucose (74-99) mg/dL POC Glucose (mg/dL) 174 H 165 H (75-99) mg/dL Calcium (8.4-10.2) mg/dL 08/23/21 08/23/21 08/23/21 Range/Units 04:39 04:39 05:46 WBC 12.6 H (3.8-10.6) k/uL RBC 2.47 L (4.30-5.90) m/uL Hgb 7.3 L (13.0-17.5) gm/dL Hct 24.2 L (39.0-53.0) % MCHC 30.3 L (31.0-37.0) g/dL RDW 19.8 H (11.5-15.5) % Neutrophils # 12.0 H (1.3-7.7) k/uL Lymphocytes # 0.3 L (1.0-4.8) k/uL ABG pH 7.32 L (7.35-7.45) ABG O2 Saturation 98.1 H (94-97) % Sodium 147 H (137-145) mmol/L Chloride 121 H (98-107) mmol/L BUN 40 H (9-20) mg/dL Glucose 153 H (74-99) mg/dL POC Glucose (mg/dL) (75-99) mg/dL Calcium 7.5 L (8.4-10.2) mg/dL 08/23/21 Range/Units 05:51 WBC (3.8-10.6) k/uL RBC (4.30-5.90) m/uL Hgb (13.0-17.5) gm/dL Hct (39.0-53.0) % MCHC (31.0-37.0) g/dL RDW (11.5-15.5) % Neutrophils # (1.3-7.7) k/uL Lymphocytes # (1.0-4.8) k/uL ABG pH (7.35-7.45) ABG O2 Saturation (94-97) % Sodium (137-145) mmol/L Chloride (98-107) mmol/L BUN (9-20) mg/dL Glucose (74-99) mg/dL POC Glucose (mg/dL) 147 H (75-99) mg/dL Calcium (8.4-10.2) mg/dL Microbiology - Last 24 Hours (Table) 08/18/21 06:04 Blood Culture - Preliminary Blood No Growth after 120 hours Diabetes panel 08/23/21 Range/Units 04:39 Sodium 147 H (137-145) mmol/L Potassium 4.0 (3.5-5.1) mmol/L Chloride 121 H (98-107) mmol/L Carbon Dioxide 22 (22-30) mmol/L BUN 40 H (9-20) mg/dL Creatinine 0.97 (0.66-1.25) mg/dL Glucose 153 H (74-99) mg/dL Calcium 7.5 L (8.4-10.2) mg/dL Calcium panel 08/23/21 Range/Units 04:39 Calcium 7.5 L (8.4-10.2) mg/dL Pituitary panel 08/23/21 Range/Units 04:39 Sodium 147 H (137-145) mmol/L Potassium 4.0 (3.5-5.1) mmol/L Chloride 121 H (98-107) mmol/L Carbon Dioxide 22 (22-30) mmol/L BUN 40 H (9-20) mg/dL Creatinine 0.97 (0.66-1.25) mg/dL Glucose 153 H (74-99) mg/dL Calcium 7.5 L (8.4-10.2) mg/dL Adrenal panel 08/23/21 Range/Units 04:39 Sodium 147 H (137-145) mmol/L Potassium 4.0 (3.5-5.1) mmol/L Chloride 121 H (98-107) mmol/L Carbon Dioxide 22 (22-30) mmol/L BUN 40 H (9-20) mg/dL Creatinine 0.97 (0.66-1.25) mg/dL Glucose 153 H (74-99) mg/dL Calcium 7.5 L (8.4-10.2) mg/dL
[2021-08-23] MEDS ORDERED: METOPROLOL TARTRATE 50 MG TAB PO ONE (17:53)
[2021-08-23 18:05] LABS: Glucose,Whole Blood 196 mg/dL (75-99)
--- NOTE | 2021-08-23 21:05 | P.PN ---
Subjective Progress Note Date: 08/23/21 This is a pleasant 71 years old male with past medical history of COPD, Hyperlipidemia, Hypertension, Osteoarthritis , Metabolic Encaphalopathy, Acute kidney failure with tubular necrosis, Cachexia, Chronic non-pressure ulcer of back, Rhabdomylosis was sent from [facility] with increased weakness and lethargy over the last 2-3days Patient is poor historian but as per staff with . his he has been a [facility] for the last 1-2 months and his been confused. pt looks cachectic and very frail, he is oriented to time ,place and person , but has no denture, his voice is muffled because of that he is been complaining from dyspnea and chest pain which is mild in the middle nonradiating and associated with very little cough. He says his shortness of breath was worse over the last 1 day and a half. Denies any abdominal pain or vomiting or diarrhea but he has low appetite. He denies any choking or swallow problem but he has no denture so we'll check for swallow evaluation Patient looks tachypneic with bilateral chest with some limited air entry but no ricardo wheezing. Patient states that he quit smoking about 10 years ago, used to smoke for more than 10 years. No alcohol or illicit drugs. He has multiple pressure ulcers he has one large pressure ulcers on the right leg laterally with drying scab Or any dressing . Also has multiple pressure ulcers with black eschar on both heels and left foot. The surrounding skin looks intact with no redness or swelling. On admission he was slightly tachypneic on 20, afebrile and heart rate was 84 and blood pressure 141/64, however overnight his blood pressure dropped with systolic 90s to 100, currently his blood pressure 104/68, also became tachycardic with heart rate 04/17/2049. He was saturating 9920% on 2-3 L oxygen via nasal cannula. He is mildly hypothermic at 97.2 His WBC is elevated at 17.7. Hemoglobin is 10.0. Platelet count 258. INR 0.9. BUN is 32 and creatinine 0.9. Troponin is 0.02 and less than 0.01. Glucose was on the low side 57 on admission and currently is 201. Urinalysis showed 1+ protein with no evidence of infection. Patient started on steroids and got a breathing treatment, IV fluids and started on amiodarone drips and Lovenox in the emergency room. D-dimer was elevated, therefore CTA of the chest was done which showed negative for pulmonary embolism, emphysematous changes with small pleural effusion. Also there is focal scattered versus speculated nodule in the right upper lobe we ordered stat CT of the brain and CT of the chest to rule out pulmonary embolism given his hypotension, tachycardia and tachypnea with elevated d-dimer. Also with mild hypoxia suspected. However patient confused per staff when he came in and could not be started on heparin drip before we rule out intracranial bleed before CT of the brain is also ordered with CT of the chest. Both tests came back negative 08/19/2021 Patient today during morning rounds found obtunded and responsive and unarousable with impending respiratory failure and he was transferred to the intensive care unit he got intubated and placed on mechanical ventilation with pulmonary/critical care team following closely and held with and management. His WBCs 11.6, hemoglobin 8.6, creatinine 1.4. chest x-ray sewn bilateral worsening infiltrates especially in the lower zones mood versus worsening infection His continued counseling atrial 60 mg, antibiotic form of Zosyn and amiodarone drip for developing A. fib and RVR. High-dose tenderness on hold 08/20/2021 Patient remains in the ICU intubated and sedated, he still tachypneic with respiratory rate of 28, his PEEP of 8.0 today. His hemoglobin is 7.1, creatinine 1.4. Remains on IV Solu-Medrol and Zosyn. Also is on amiodarone drip, and normal saline at 100 mL per hour. He still has bilateral leg ulceration with dried surface. Ultrasound showing evidence of chronic left DVT, currently he is on Lovenox 50 mg twice daily 08/21/2021 patient remains in the ICU sedated and intubated with pulmonary/critical care team following him closely and help with vent management . He is still on high PEEP relatively at 8 and FiO2 of 35%. He is tachypneic and tachycardic WBC 6.6, hemoglobin 7.5, creatinine improvement 1.2, chest x-ray showing no change. He remains on Zosyn, IV Solu-Medrol and normal saline 08/22/2021 Patient continues to be in the MICU with multiple medical consultations following. Pulmonary intensivists following and patient is maintained on IV steroids, duonebs, and IV antibiotics and will continue. Patient continues on vent with an FI02 of 30% and peep being weaned somewhat from 8 to 6 today. Chest xray is similar to previous day with no real improvement. Patient is afebrile. Patient overall prognosis is extremely poor and guarded and code status to be addressed. Cardiology following as well and have increased the metoprolol and continues on amiodarone. 08/23/2021 Patient continues to be in the ICU on mechanical vent with an FI02 of 30% and p eep is 6. Patient on sedation with holidays being conducted. Not tolerating and no plan for extubation at this time. General surgery consulted for right willis ulcer that has a large scab over it and apparently now some purulent drainage is noted. Possible debridement of the wound and recommend obtaining cultures. Patient is afebrile and sodium is elevated and IV fluids being transitioned to D5 in Water. Recommend repeat labs. Review of systems: unable to obtain as patient is sedated and on mechanical vent. Active Medications Acetaminophen (Acetaminophen Tab 325 Mg Tab) 650 mg PO Q4H PRN PRN Reason: Pain or Fever > 100.5 Albuterol/Ipratropium (Ipratropium-Albuterol 3 Ml Neb) 3 ml INHALATION RT-Q4H PRN PRN Reason: Shortness Of Breath Or Wheezing Albuterol/Ipratropium (Ipratropium-Albuterol 3 Ml Neb) 3 ml INHALATION RT-Q4H [facility] Last Admin: 08/23/21 19:52 Dose: 3 ml Amiodarone HCl (Amiodarone 200 Mg Tab) 200 mg PO BID [facility] Last Admin: 08/23/21 20:22 Dose: 200 mg Amlodipine Besylate (Amlodipine 5 Mg Tab) 5 mg PO DAILY [facility] Last Admin: 08/23/21 08:28 Dose: 5 mg Budesonide (Budesonide 1 Mg/2 Ml Nebu) 1 mg INHALATION RT-BID [facility] Last Admin: 08/23/21 19:52 Dose: 1 mg Chlorhexidine Gluconate (Chlorhexidine Gluconate 15 Ml Cup) 15 ml MUCOUS MEM BID [facility] Last Admin: 08/23/21 20:22 Dose: 15 ml Enoxaparin Sodium (Enoxaparin 60 Mg/0.6 Ml Syringe) 50 mg SQ Q12HR [facility] Last Admin: 08/23/21 20:22 Dose: 50 mg Famotidine (Famotidine 20 Mg Tab) 20 mg PO DAILY [facility] Last Admin: 08/23/21 08:16 Dose: 20 mg Formoterol Fumarate (Formoterol Fumarate 20 Mcg/2 Ml Nebu) 20 mcg INHALATION RT-BID [facility] Last Admin: 08/23/21 20:02 Dose: 20 mcg Hydromorphone HCl (Hydromorphone 1 Mg/Ml 1 Ml Syringe) 1 mg IVP Q2HR PRN PRN Reason: Pain Last Admin: 08/23/21 17:24 Dose: 1 mg Propofol 1,000 mg/ IV Solution 100 mls @ 1.629 mls/hr IV .Q24H [facility]; Protocol Last Admin: 08/23/21 17:57 Dose: 40 mcg/kg/min, 13.032 mls/hr Piperacillin Sod/Tazobactam (Sod 3.375 gm/ Sodium Chloride) 100 mls @ 25 mls/hr IVPB Q8HR [facility]; Protocol Last Admin: 08/23/21 16:06 Dose: 25 mls/hr Dextrose/Water (Dextrose 5%-Water Iv Soln) 1,000 mls @ 100 mls/hr IV .Q10H [facility] Last Admin: 08/23/21 20:23 Dose: 100 mls/hr Insulin Aspart (Insulin Aspart (Novolog) 100 Unit/Ml Vial) 0 unit SQ Q6HR [facility]; Protocol Last Admin: 08/23/21 18:25 Dose: 2 unit Levothyroxine Sodium (Levothyroxine 50 Mcg Tab) 50 mcg PO DAILY@0500 [facility] Last Admin: 08/23/21 06:21 Dose: 50 mcg Methylprednisolone Sodium Succinate (Methylprednisolone Sod Succi 125 Mg/2 Ml Vial) 60 mg IV Q6HR [facility] Last Admin: 08/23/21 17:24 Dose: 60 mg Metoprolol Tartrate (Metoprolol Tartrate 50 Mg Tab) 100 mg PO BID [facility] Last Admin: 08/23/21 20:22 Dose: 100 mg Naloxone HCl (Naloxone 0.4 Mg/Ml 1 Ml Vial) 0.2 mg IV Q2M PRN PRN Reason: Opioid Reversal Tramadol HCl (Tramadol 50 Mg Tab) 50 mg PO Q6H PRN PRN Reason: Pain Physical Exam: GENERAL: The patient is intubated and sedated HEENT: Pupils are round and equally reacting to light. EOMI. No scleral icterus. No conjunctival pallor. Normocephalic, atraumatic. No pharyngeal erythema. No thyromegaly. CARDIOVASCULAR: S1 and S2 present. No murmurs, rubs, or gallops. PULMONARY: Decreased air entry with scattered wheezing and bilateral crepitation ABDOMEN: Soft, nontender, nondistended, normoactive bowel sounds. No palpable organomegaly. MUSCULOSKELETAL: No joint swelling or deformity. EXTREMITIES: No cyanosis, clubbing, or pedal edema. Multiple bilateral leg ulcers including both heels and right lateral willis with large scabbing noted over entire surface of the wound. No surrounding redness or erythema noted although there is now some purulent drainage noted from the willis. No evidence of overt surrounding cellulitis NEUROLOGICAL: Gross neurological examination did not reveal any focal deficits. Unable to assess as patient is on sedation SKIN: No rashes. no petechiae. Assessment: Acute hypoxic respiratory failure requiring intubation and mechanical ventilation COPD with exacerbation Multiple pressure ulcers with suspected infection Aflutter with RVR Moderate calorie malnutrition with a BMI of 21.1 multiple leg wounds focal scar versus speculated nodule in the right upper lobe, will need outpatient PET scan History of hypertension, currently he is hypotensive Hyperlipidemia Dehydration Chronic altered mental status with some elements of acute related to metabolic encephalopathy. Possible dementia History of osteoarthritis History of chronic nonpressure ulcer of the back DVT prophylaxis: Subcutaneous Lovenox GI Prophylaxis: Pepcid Full code Plan: This is a pleasant 71 years old male who presented with COPD acute exacerbation and respiratory status declined and patient brought to the ICU and is continued on mechanical ventilator and sedated. Currently remains on 30% FI02 and peep is 6. No plans for weaning at this time. Sedation holidays ongoing Continue with steroids IV Solu-Medrol, duo nebs and IV zosyn Continue with oral amiodarone and metoprolol radio interference investigator following Large right willis ulcer with large scab covering the entire surface of the wound and now with purulent drainage noted and general surgery following and plan is for debridement in the am. HOld lovenox and tube feeding at midnight and NPO. Recommend obtaining deep cultures. DVT and GI prophylaxis. Further recommendations depends on the clinical course of the patient Overall Prognosis is extremely poor and guarded CODE STATUS Full code per per staff The impression and plan of care has been dictated by Lucy Reyes, Nurse Practitioner as directed. Dr. Bharat MD I have performed a history and examination and MDM of this patient, discussed the same with the dictator, and agree with the dictator's assessment and plan as written ,documented as a scribe. Based on total visit time, I have performed more than 50% of the visit. Objective - Vital Signs Vital signs: Vital Signs Temp 98.4 F 08/23/21 08:00 Pulse 70 08/23/21 09:04 Resp 14 08/23/21 09:04 BP 101/62 08/22/21 23:55 Pulse Ox 96 08/23/21 08:00 FiO2 30 08/23/21 08:00 Intake & Output 08/22/21 08/23/21 08/23/21 18:59 06:59 18:59 Intake Total 0710.492 2100.082 366.785 Output Total 650 865 140 Balance 438.437 168.082 226.785 Weight 59.3 kg 59.8 kg Intake: IV 460 320 140 Piperacillin-Tazobactam 3 100 100 100 .375 gm In Sodium Chloride 0.9% 100 ml @ 25 mls/hr IVPB Q8HR [facility] Rx# :[id number] Sodium Chloride 0.9% 1, 360 220 40 000 ml @ 20 mls/hr IV . Q24H [facility] Rx#:[id number] Intake, IV Titration 196.437 227.082 95.785 Amount propofoL 1,000 mg In 196.437 227.082 95.785 Empty Bag 1 bag @ 5 MCG/ KG/MIN 1.629 mls/hr IV . Q24H [facility] Rx#:[id number] Tube Feeding 402 396 71 Other 30 90 60 Output: Urine 650 865 140 Other: Voiding Method Indwelling Catheter Indwelling Catheter Indwelling Catheter ABP, PAP, CO, CI - Last Documented Arterial Blood Pressure 154/45 - Labs CBC & Chem 7: 08/23/21 04:39 08/23/21 04:39 Labs: Abnormal Lab Results - Last 24 Hours (Table) 08/22/21 08/22/21 08/22/21 Range/Units 11:13 13:38 17:39 WBC (3.8-10.6) k/uL RBC (4.30-5.90) m/uL Hgb (13.0-17.5) gm/dL Hct (39.0-53.0) % MCHC (31.0-37.0) g/dL RDW (11.5-15.5) % Neutrophils # (1.3-7.7) k/uL Lymphocytes # (1.0-4.8) k/uL ABG pH 7.32 L (7.35-7.45) ABG O2 Saturation 98.6 H (94-97) % Sodium (137-145) mmol/L Chloride (98-107) mmol/L BUN (9-20) mg/dL Glucose (74-99) mg/dL POC Glucose (mg/dL) 192 H 174 H (75-99) mg/dL Calcium (8.4-10.2) mg/dL 08/23/21 08/23/21 08/23/21 Range/Units 00:01 04:39 04:39 WBC 12.6 H (3.8-10.6) k/uL RBC 2.47 L (4.30-5.90) m/uL Hgb 7.3 L (13.0-17.5) gm/dL Hct 24.2 L (39.0-53.0) % MCHC 30.3 L (31.0-37.0) g/dL RDW 19.8 H (11.5-15.5) % Neutrophils # 12.0 H (1.3-7.7) k/uL Lymphocytes # 0.3 L (1.0-4.8) k/uL ABG pH (7.35-7.45) ABG O2 Saturation (94-97) % Sodium 147 H (137-145) mmol/L Chloride 121 H (98-107) mmol/L BUN 40 H (9-20) mg/dL Glucose 153 H (74-99) mg/dL POC Glucose (mg/dL) 165 H (75-99) mg/dL Calcium 7.5 L (8.4-10.2) mg/dL 08/23/21 08/23/21 Range/Units 05:46 05:51 WBC (3.8-10.6) k/uL RBC (4.30-5.90) m/uL Hgb (13.0-17.5) gm/dL Hct (39.0-53.0) % MCHC (31.0-37.0) g/dL RDW (11.5-15.5) % Neutrophils # (1.3-7.7) k/uL Lymphocytes # (1.0-4.8) k/uL ABG pH 7.32 L (7.35-7.45) ABG O2 Saturation 98.1 H (94-97) % Sodium (137-145) mmol/L Chloride (98-107) mmol/L BUN (9-20) mg/dL Glucose (74-99) mg/dL POC Glucose (mg/dL) 147 H (75-99) mg/dL Calcium (8.4-10.2) mg/dL Microbiology - Last 24 Hours (Table) 08/18/21 06:04 Blood Culture - Preliminary Blood No Growth after 120 hours
[2021-08-23 23:54] LABS: Glucose,Whole Blood 197 mg/dL (75-99)
[2021-08-24] MEDS: methylPREDNISolone SOD SUCCI 125 MG/2 ML VIAL IV SCH ×4 (00:19→18:04)
[2021-08-24] MEDS: HYDROmorphone 1 MG/ML 1 ML SYRINGE IVP PRN ×7 (00:20→22:20)
[2021-08-24] MEDS: INSULIN ASPART (NovoLOG) 100 UNIT/ML VIAL SQ SCH ×5 (00:20→23:35)
[2021-08-24] MEDS: PIPERACILLIN-TAZOBACTAM 3.375 GM in SODIUM CHLORIDE 0.9% 100 ML IVPB SCH ×4 (00:21→23:35)
[2021-08-24] MEDS: IPRATROPIUM-ALBUTEROL 3 ML NEB INHALATION SCH ×5 (03:43→21:20)
[2021-08-24] MEDS: LEVOTHYROXINE 50 MCG TAB PO SCH ×2 (04:49→07:33)
[2021-08-24 04:51] LABS: African American GFR (CKD) >90 (>60 ml/min/1.73 sqM); Anion Gap 0 mmol/L; Blood Urea Nitrogen 41 mg/dL (9-20); Calcium 7.2 mg/dL (8.4-10.2); Carbon Dioxide 24 mmol/L (22-30); Chloride 118 mmol/L (98-107); Glucose 130 mg/dL (74-99); Non-African American GFR(CKD) 87 (>60 ml/min/1.73 sqM); Potassium 3.9 mmol/L (3.5-5.1); Sodium 142 mmol/L (137-145)
[2021-08-24 05:23] LABS: Anisocytosis Moderate; Basophils % (A) 0 %; Eosinophils % (A) 0 %; HCT 24.5 % (39.0-53.0); HGB 7.4 gm/dL (13.0-17.5); Hypochromasia Marked; Lymphocytes # (A) 0.3 k/uL (1.0-4.8); Lymphocytes % (A) 2 %; MCH 29.7 pg (25.0-35.0); MCHC 30.1 g/dL (31.0-37.0); MCV 98.9 fL (80.0-100.0); Macrocytosis Slight; Mean Platelet Volume 11.6; Monocytes # (A) 0.3 k/uL (0-1.0); Monocytes % (A) 2 %; Neutrophils # (A) 14.1 k/uL (1.3-7.7); Neutrophils % (A) 95 %; Platelet Count 158 k/uL (150-450); RBC 2.48 m/uL (4.30-5.90); RDW 20.1 % (11.5-15.5); WBC 14.8 k/uL (3.8-10.6)
[2021-08-24 05:42] LABS: ABG Base Excess -3.5 mmol/L; ABG HCO3 23 mmol/L (21-25); ABG Oxygen Saturation 98.6 % (94-97); ABG PCO2 44 mmHg (35-45); ABG PH 7.32 (7.35-7.45); ABG PO2 108 mmHg (83-108); ABG TCO2 24 mmol/L (19-24)
[2021-08-24 05:52] LABS: Allen Test Performed? No
[2021-08-24 05:58] LABS: Glucose,Whole Blood 144 mg/dL (75-99)
[2021-08-24] MEDS: DEXTROSE 5% IN WATER 1,000 ML IV SCH (05:59)
--- NOTE | 2021-08-24 07:04 | P.PN ---
Subjective Progress Note Date: 08/22/21 Principal diagnosis: Possible aspiration pneumonia and multiple pressure ulcers She is a 71-year-old male with a past medical history significant for end-stage COPD admitted to the hospital with weakness and some shortness of breath patient did have worsening of his respiratory status requiring intubation and admission to the ICU, patient also have multiple pressure ulcers. On today's evaluation 08/22/2021, the patient remains to be afebrile, patient is hemodynamically stable not requiring pressor support, patient is down to 30 % FiO2, no significant purulent secretion through the ET, no diarrhea or any other changes reported by the nursing staff Objective - Vital Signs Vital signs: Vital Signs Temp 98.6 F 08/22/21 08:00 Pulse 115 H 08/22/21 12:00 Resp 28 H 08/22/21 10:00 BP 120/70 08/22/21 10:00 Pulse Ox 96 08/22/21 10:00 FiO2 30 08/22/21 10:53 Intake & Output 08/21/21 08/22/21 08/22/21 18:59 06:59 18:59 Intake Total 2834.171 4446.482 540.437 Output Total 750 690 270 Balance 1071.692 578.482 270.437 Weight 59.3 kg 59.3 kg Intake: IV 1000 650 300 Piperacillin-Tazobactam 3 100 100 100 .375 gm In Sodium Chloride 0.9% 100 ml @ 25 mls/hr IVPB Q8HR [facility] Rx# :[id number] Sodium Chloride 0.9% 1, 900 550 200 000 ml @ 50 mls/hr IV . Q20H [facility] Rx#:[id number] Intake, IV Titration 263.692 194.482 96.437 Amount Sodium Chloride 0.9% 1, 100 000 ml @ 50 mls/hr IV . Q20H [facility] Rx#:[id number] propofoL 1,000 mg In 163.692 194.482 96.437 Empty Bag 1 bag @ 5 MCG/ KG/MIN 1.629 mls/hr IV . Q24H [facility] Rx#:[id number] Tube Feeding 468 324 144 Other 90 100 Output: Urine 750 690 270 Other: Voiding Method Indwelling Catheter Indwelling Catheter Indwelling Catheter ABP, PAP, CO, CI - Last Documented Arterial Blood Pressure 139/51 - Exam GENERAL DESCRIPTION: An elderly male intubated on the vent RESPIRATORY SYSTEM: Unlabored breathing , decreased breath sounds at bases HEART: S1 S2 regular rate and rhythm , ABDOMEN: Soft , no tenderness EXTREMITIES: No edema feet - Labs CBC & Chem 7: 08/24/21 04:30 08/24/21 04:30 Labs: Abnormal Lab Results - Last 24 Hours (Table) 08/21/21 08/21/21 08/22/21 Range/Units 17:29 23:33 04:45 RBC 2.42 L (4.30-5.90) m/uL Hgb 7.2 L (13.0-17.5) gm/dL Hct 23.8 L (39.0-53.0) % MCHC 30.4 L (31.0-37.0) g/dL RDW 19.5 H (11.5-15.5) % Plt Count 141 L (150-450) k/uL ABG pH (7.35-7.45) ABG pO2 (83-108) mmHg ABG HCO3 (21-25) mmol/L ABG O2 Saturation (94-97) % Sodium (137-145) mmol/L Chloride (98-107) mmol/L Carbon Dioxide (22-30) mmol/L BUN (9-20) mg/dL Glucose (74-99) mg/dL POC Glucose (mg/dL) 138 H 125 H (75-99) mg/dL Calcium (8.4-10.2) mg/dL 08/22/21 08/22/21 08/22/21 Range/Units 04:45 05:09 05:38 RBC (4.30-5.90) m/uL Hgb (13.0-17.5) gm/dL Hct (39.0-53.0) % MCHC (31.0-37.0) g/dL RDW (11.5-15.5) % Plt Count (150-450) k/uL ABG pH 7.30 L (7.35-7.45) ABG pO2 116 H (83-108) mmHg ABG HCO3 20 L (21-25) mmol/L ABG O2 Saturation 98.9 H (94-97) % Sodium 146 H (137-145) mmol/L Chloride 120 H (98-107) mmol/L Carbon Dioxide 20 L (22-30) mmol/L BUN 38 H (9-20) mg/dL Glucose 127 H (74-99) mg/dL POC Glucose (mg/dL) 153 H (75-99) mg/dL Calcium 7.2 L (8.4-10.2) mg/dL 08/22/21 Range/Units 11:13 RBC (4.30-5.90) m/uL Hgb (13.0-17.5) gm/dL Hct (39.0-53.0) % MCHC (31.0-37.0) g/dL RDW (11.5-15.5) % Plt Count (150-450) k/uL ABG pH (7.35-7.45) ABG pO2 (83-108) mmHg ABG HCO3 (21-25) mmol/L ABG O2 Saturation (94-97) % Sodium (137-145) mmol/L Chloride (98-107) mmol/L Carbon Dioxide (22-30) mmol/L BUN (9-20) mg/dL Glucose (74-99) mg/dL POC Glucose (mg/dL) 192 H (75-99) mg/dL Calcium (8.4-10.2) mg/dL Microbiology - Last 24 Hours (Table) 08/18/21 06:04 Blood Culture - Preliminary Blood No Growth after 96 hours 08/19/21 12:06 Gram Stain - Final Sputum Sputum Culture - Final Corynebacterium striatum Assessment and Plan (1) Pneumonia Current Visit: Yes Status: Acute Code(s): J18.9 - PNEUMONIA, UNSPECIFIED ORGANISM SNOMED Code(s): 894009170 Plan: 1patient presented to hospital with increasing shortness of breath could be re lated to her underlying cardiac etiology, patient subsequently did have worsening of his respiratory status requiring intubation and concern for possible aspiration. 2sputum culture has been obtained which are negative so far 3Medihoney to the left thigh wound with a slough rest of the wound with a dry necrotic area to keep them dry and of the pressure. 4-patient Seems to have shown some clinical improvement and will to continue Zosyn while waiting for the culture to be finalized Time with Patient: Less than 30
--- NOTE | 2021-08-24 07:06 | P.PN ---
Subjective Progress Note Date: 08/23/21 Principal diagnosis: Possible aspiration pneumonia and multiple pressure ulcers She is a 71-year-old male with a past medical history significant for end-stage COPD admitted to the hospital with weakness and some shortness of breath patient did have worsening of his respiratory status requiring intubation and admission to the ICU, patient also have multiple pressure ulcers. On today's evaluation 08/23/2021, the patient is afebrile, patient is hemodynamically stable not requiring pressor support, patient is stable at 30 % FiO2, no purulent secretion through the ET reported, patient is tolerating his tube feeds and no diarrhea or any other changes reported by the nursing staff Objective - Vital Signs Vital signs: Vital Signs Temp 98.2 F 08/23/21 12:00 Pulse 73 08/23/21 12:24 Resp 16 08/23/21 12:24 BP 101/62 08/22/21 23:55 Pulse Ox 96 08/23/21 12:00 FiO2 30 08/23/21 12:00 Intake & Output 08/22/21 08/23/21 08/23/21 18:59 06:59 18:59 Intake Total 9079.654 1800.082 896.081 Output Total 650 865 350 Balance 438.437 168.082 546.081 Weight 59.3 kg 59.8 kg Intake: IV 460 320 200 Piperacillin-Tazobactam 3 100 100 100 .375 gm In Sodium Chloride 0.9% 100 ml @ 25 mls/hr IVPB Q8HR [facility] Rx# :[id number] Sodium Chloride 0.9% 1, 360 220 100 000 ml @ 20 mls/hr IV . Q24H [facility] Rx#:[id number] Intake, IV Titration 196.437 227.082 355.081 Amount Dextrose 5% in Water 1, 200 000 ml @ 100 mls/hr IV . Q10H [facility] Rx#:[id number] propofoL 1,000 mg In 196.437 227.082 155.081 Empty Bag 1 bag @ 5 MCG/ KG/MIN 1.629 mls/hr IV . Q24H [facility] Rx#:[id number] Tube Feeding 402 396 251 Other 30 90 90 Output: Urine 650 865 350 Other: Voiding Method Indwelling Catheter Indwelling Catheter Indwelling Catheter ABP, PAP, CO, CI - Last Documented Arterial Blood Pressure 164/46 - Exam GENERAL DESCRIPTION: An elderly male intubated on the vent RESPIRATORY SYSTEM: Unlabored breathing , decreased breath sounds at bases HEART: S1 S2 regular rate and rhythm , ABDOMEN: Soft , no tenderness EXTREMITIES: No edema feet - Labs CBC & Chem 7: 08/24/21 04:30 08/24/21 04:30 Labs: Abnormal Lab Results - Last 24 Hours (Table) 08/22/21 08/22/21 08/23/21 Range/Units 13:38 17:39 00:01 WBC (3.8-10.6) k/uL RBC (4.30-5.90) m/uL Hgb (13.0-17.5) gm/dL Hct (39.0-53.0) % MCHC (31.0-37.0) g/dL RDW (11.5-15.5) % Neutrophils # (1.3-7.7) k/uL Lymphocytes # (1.0-4.8) k/uL ABG pH 7.32 L (7.35-7.45) ABG O2 Saturation 98.6 H (94-97) % Sodium (137-145) mmol/L Chloride (98-107) mmol/L BUN (9-20) mg/dL Glucose (74-99) mg/dL POC Glucose (mg/dL) 174 H 165 H (75-99) mg/dL Calcium (8.4-10.2) mg/dL 08/23/21 08/23/21 08/23/21 Range/Units 04:39 04:39 05:46 WBC 12.6 H (3.8-10.6) k/uL RBC 2.47 L (4.30-5.90) m/uL Hgb 7.3 L (13.0-17.5) gm/dL Hct 24.2 L (39.0-53.0) % MCHC 30.3 L (31.0-37.0) g/dL RDW 19.8 H (11.5-15.5) % Neutrophils # 12.0 H (1.3-7.7) k/uL Lymphocytes # 0.3 L (1.0-4.8) k/uL ABG pH 7.32 L (7.35-7.45) ABG O2 Saturation 98.1 H (94-97) % Sodium 147 H (137-145) mmol/L Chloride 121 H (98-107) mmol/L BUN 40 H (9-20) mg/dL Glucose 153 H (74-99) mg/dL POC Glucose (mg/dL) (75-99) mg/dL Calcium 7.5 L (8.4-10.2) mg/dL 08/23/21 08/23/21 Range/Units 05:51 11:28 WBC (3.8-10.6) k/uL RBC (4.30-5.90) m/uL Hgb (13.0-17.5) gm/dL Hct (39.0-53.0) % MCHC (31.0-37.0) g/dL RDW (11.5-15.5) % Neutrophils # (1.3-7.7) k/uL Lymphocytes # (1.0-4.8) k/uL ABG pH (7.35-7.45) ABG O2 Saturation (94-97) % Sodium (137-145) mmol/L Chloride (98-107) mmol/L BUN (9-20) mg/dL Glucose (74-99) mg/dL POC Glucose (mg/dL) 147 H 165 H (75-99) mg/dL Calcium (8.4-10.2) mg/dL Microbiology - Last 24 Hours (Table) 08/18/21 06:04 Blood Culture - Preliminary Blood No Growth after 120 hours Assessment and Plan (1) Pneumonia Current Visit: Yes Status: Acute Code(s): J18.9 - PNEUMONIA, UNSPECIFIED ORGANISM SNOMED Code(s): 176130780 Plan: 1patient presented to hospital with increasing shortness of breath could be related to her underlying cardiac etiology, patient subsequently did have worsening of his respiratory status requiring intubation and concern for possible aspiration. 2sputum culture has been obtained which are negative so far 3patient to continue local wound care with Medihoney to the left thigh wound with a slough rest of the wound with a dry necrotic area to keep them dry and of the pressure. 4-patient slowly clinically improving and will continue with the [facility] monitor clinical course closelyd Time with Patient: Less than 30
[2021-08-24] MEDS: ENOXAPARIN 60 MG/0.6 ML SYRINGE SQ SCH ×3 (07:17→20:31)
[2021-08-24] MEDS: METOPROLOL TARTRATE 50 MG TAB PO SCH ×2 (08:00→20:23)
[2021-08-24] MEDS: amLODIPine 10 MG TAB PO SCH (08:00)
[2021-08-24] MEDS: AMIODARONE 200 MG TAB PO SCH ×2 (08:00→20:23)
[2021-08-24] MEDS: FAMOTIDINE 20 MG TAB PO SCH (08:00)
[2021-08-24] MEDS: CHLORHEXIDINE GLUCONATE 15 ML CUP MUCOUS MEM SCH ×2 (08:01→20:24)
[2021-08-24] MEDS: FORMOTEROL FUMARATE 20 MCG/2 ML NEBU INHALATION SCH ×2 (08:20→21:20)
[2021-08-24] MEDS: BUDESONIDE 1 MG/2 ML NEBU INHALATION SCH ×2 (08:21→21:20)
--- NOTE | 2021-08-24 08:23 | XR ---
EXAMINATION TYPE: XR chest 1V portable DATE OF EXAM: 08/24/2021 COMPARISON: X-ray dated 08/23/2021 HISTORY: Tube placement TECHNIQUE: Single frontal view of the chest is obtained. FINDINGS: The tip of the endotracheal tube is about 3.6 cm proximal to the josette. Unchanged positio n of the left subclavian line. NG tube is seen with the tip is probably at the inferior aspect of the esophagus or at the gastroesophageal junction. Further introduction into the stomach is advised. Persistent patchy opacity in the left mid and lower lung zone, slightly more prominent today. No prog ressive right pulmonary consolidation. Unchanged cardiomediastinal silhouette and aortic atherosclero tic calcifications. Grossly stable pleural effusions. IMPRESSION: Kindly check the position of the NG tube as discussed above.
--- NOTE | 2021-08-24 09:50 | P.PN ---
Subjective Progress Note Date: 08/24/21 This is a pleasant 71 years old male with past medical history of COPD, Hyperlipidemia, Hypertension, Osteoarthritis , Metabolic Encaphalopathy, Acute kidney failure with tubular necrosis, Cachexia, Chronic non-pressure ulcer of back, Rhabdomylosis was sent from [facility] with increased weakness and lethargy over the last 2-3days Patient is poor historian but as per staff with . his he has been a long-term for the last 1-2 months and his been confused. pt looks cachectic and very frail, he is oriented to time ,place and person , but has no denture, his voice is muffled because of that he is been complaining from dyspnea and chest pain which is mild in the middle nonradiating and associated with very little cough. He says his shortness of breath was worse over the last 1 day and a half. Denies any abdominal pain or vomiting or diarrhea but he has low appetite. He denies any choking or swallow problem but he has no denture so we'll check for swallow evaluation Patient looks tachypneic with bilateral chest with some limited air entry but no ricardo wheezing. Patient states that he quit smoking about 10 years ago, used to smoke for more than 10 years. No alcohol or illicit drugs. He has multiple pressure ulcers he has one large pressure ulcers on the right leg laterally with drying scab Or any dressing . Also has multiple pressure ulcers with black eschar on both heels and left foot. The surrounding skin looks intact with no redness or swelling. On admission he was slightly tachypneic on 20, afebrile and heart rate was 84 and blood pressure 141/64, however overnight his blood pressure dropped with systolic 90s to 100, currently his blood pressure 104/68, also became tachycardic with heart rate 04/17/2049. He was saturating 9920% on 2-3 L oxygen via nasal cannula. He is mildly hypothermic at 97.2 His WBC is elevated at 17.7. Hemoglobin is 10.0. Platelet count 258. INR 0.9. BUN is 32 and creatinine 0.9. Troponin is 0.02 and less than 0.01. Glucose was on the low side 57 on admission and currently is 201. Urinalysis showed 1+ protein with no evidence of infection. Patient started on steroids and got a breathing treatment, IV fluids and started on amiodarone drips and Lovenox in the emergency room. D-dimer was elevated, therefore CTA of the chest was done which showed negative for pulmonary embolism, emphysematous changes with small pleural effusion. Also there is focal scattered versus speculated nodule in the right upper lobe we ordered stat CT of the brain and CT of the chest to rule out pulmonary embolism given his hypotension, tachycardia and tachypnea with elevated d-dimer. Also with mild hypoxia suspected. However patient confused per staff when he came in and could not be started on heparin drip before we rule out intracranial bleed before CT of the brain is also ordered with CT of the chest. Both tests came back negative 08/19/2021 Patient today during morning rounds found obtunded and responsive and unarousable with impending respiratory failure and he was transferred to the intensive care unit he got intubated and placed on mechanical ventilation with pulmonary/critical care team following closely and held with and management. His WBCs 11.6, hemoglobin 8.6, creatinine 1.4. chest x-ray sewn bilateral worsening infiltrates especially in the lower zones mood versus worsening infection His continued counseling atrial 60 mg, antibiotic form of Zosyn and amiodarone drip for developing A. fib and RVR. High-dose tenderness on hold 08/20/2021 Patient remains in the ICU intubated and sedated, he still tachypneic with respiratory rate of 28, his PEEP of 8.0 today. His hemoglobin is 7.1, creatinine 1.4. Remains on IV Solu-Medrol and Zosyn. Also is on amiodarone drip, and normal saline at 100 mL per hour. He still has bilateral leg ulceration with dried surface. Ultrasound showing evidence of chronic left DVT, currently he is on Lovenox 50 mg twice daily 08/21/2021 patient remains in the ICU sedated and intubated with pulmonary/critical care team following him closely and help with vent management . He is still on high PEEP relatively at 8 and FiO2 of 35%. He is tachypneic and tachycardic WBC 6.6, hemoglobin 7.5, creatinine improvement 1.2, chest x-ray showing no change. He remains on Zosyn, IV Solu-Medrol and normal saline 08/22/2021 Patient continues to be in the MICU with multiple medical consultations following. Pulmonary intensivists following and patient is maintained on IV steroids, duonebs, and IV antibiotics and will continue. Patient continues on vent with an FI02 of 30% and peep being weaned somewhat from 8 to 6 today. Chest xray is similar to previous day with no real improvement. Patient is afebrile. Patient overall prognosis is extremely poor and guarded and code status to be addressed. Cardiology following as well and have increased the metoprolol and continues on amiodarone. 08/23/2021 Patient continues to be in the ICU on mechanical vent with an FI02 of 30% and p eep is 6. Patient on sedation with holidays being conducted. Not tolerating and no plan for extubation at this time. General surgery consulted for right willis ulcer that has a large scab over it and apparently now some purulent drainage is noted. Possible debridement of the wound and recommend obtaining cultures. Patient is afebrile and sodium is elevated and IV fluids being transitioned to D5 in Water. Recommend repeat labs. 08/24/2021 Patient continues to be closely monitored in the medical ICU and maintained on mechanical vent. Chest x-ray shows persistent patchy opacification the left mid and lower lung zone slightly more prominent today with no progressive right pulmonary consolidation and grossly stable pleural effusions and also incidental finding of NG tube that needs further advancing into the stomach. Patient is continued on enteral nutrition via NG. Patient remains on mechanical vent with an FiO2 of 30% and PEEP is 6. Patient also continues on D5 in water and sodium is 142 today with a potassium of 3.9, creatinine is 0.87. Hemoglobin is 7.4 and WBC is 14.8 which is on an upward trend. Patient is afebrile. Patient continues on breathing inhalational treatments along with IV steroids 60 every 6 and IV Zosyn and is sedated with propofol at this time. Patient is tentatively scheduled for debridement of the right willis today. Review of systems: unable to obtain as patient is sedated and on mechanical vent. Active Medications Acetaminophen (Acetaminophen Tab 325 Mg Tab) 650 mg PO Q4H PRN PRN Reason: Pain or Fever > 100.5 Albuterol/Ipratropium (Ipratropium-Albuterol 3 Ml Neb) 3 ml INHALATION RT-Q4H PRN PRN Reason: Shortness Of Breath Or Wheezing Albuterol/Ipratropium (Ipratropium-Albuterol 3 Ml Neb) 3 ml INHALATION RT-Q4H S Last Admin: 08/24/21 08:21 Dose: 3 ml Amiodarone HCl (Amiodarone 200 Mg Tab) 200 mg PO BID [facility] Last Admin: 08/24/21 08:00 Dose: 200 mg Amlodipine Besylate (Amlodipine 10 Mg Tab) 10 mg PO DAILY [facility] Last Admin: 08/24/21 08:00 Dose: 10 mg Budesonide (Budesonide 1 Mg/2 Ml Nebu) 1 mg INHALATION RT-BID [facility] Last Admin: 08/24/21 08:21 Dose: 1 mg Chlorhexidine Gluconate (Chlorhexidine Gluconate 15 Ml Cup) 15 ml MUCOUS MEM BID [facility] Last Admin: 08/24/21 08:01 Dose: 15 ml Enoxaparin Sodium (Enoxaparin 60 Mg/0.6 Ml Syringe) 50 mg SQ Q12HR [facility] Last Admin: 08/24/21 08:01 Dose: 50 mg Famotidine (Famotidine 20 Mg Tab) 20 mg PO DAILY [facility] Last Admin: 08/24/21 08:00 Dose: 20 mg Formoterol Fumarate (Formoterol Fumarate 20 Mcg/2 Ml Nebu) 20 mcg INHALATION RT-BID [facility] Last Admin: 08/24/21 08:20 Dose: 20 mcg Hydromorphone HCl (Hydromorphone 1 Mg/Ml 1 Ml Syringe) 1 mg IVP Q2HR PRN PRN Reason: Pain Last Admin: 08/24/21 08:52 Dose: 1 mg Propofol 1,000 mg/ IV Solution 100 mls @ 1.629 mls/hr IV .Q24H [facility]; Protocol Last Titration: 08/24/21 09:40 Dose: 10 mcg/kg/min, 3.258 mls/hr Piperacillin Sod/Tazobactam (Sod 3.375 gm/ Sodium Chloride) 100 mls @ 25 mls/hr IVPB Q8HR [facility]; Protocol Last Admin: 08/24/21 08:00 Dose: 25 mls/hr Dextrose/Water (Dextrose 5%-Water Iv Soln) 1,000 mls @ 100 mls/hr IV .Q10H [facility] Last Admin: 08/24/21 05:59 Dose: 100 mls/hr Insulin Aspart (Insulin Aspart (Novolog) 100 Unit/Ml Vial) 0 unit SQ Q6HR [facility]; Protocol Last Admin: 08/24/21 05:57 Dose: 1 unit Levothyroxine Sodium (Levothyroxine 50 Mcg Tab) 50 mcg PO DAILY@0500 [facility] Last Admin: 08/24/21 07:33 Dose: 50 mcg Methylprednisolone Sodium Succinate (Methylprednisolone Sod Succi 125 Mg/2 Ml Vial) 60 mg IV Q6HR [facility] Last Admin: 08/24/21 05:58 Dose: 60 mg Metoprolol Tartrate (Metoprolol Tartrate 50 Mg Tab) 100 mg PO BID [facility] Last Admin: 08/24/21 08:00 Dose: 100 mg Naloxone HCl (Naloxone 0.4 Mg/Ml 1 Ml Vial) 0.2 mg IV Q2M PRN PRN Reason: Opioid Reversal Tramadol HCl (Tramadol 50 Mg Tab) 50 mg PO Q6H PRN PRN Reason: Pain Physical Exam: GENERAL: The patient is intubated and sedated HEENT: Pupils are round and equally reacting to light. EOMI. No scleral icterus. No conjunctival pallor. Normocephalic, atraumatic. No pharyngeal erythema. No thyromegaly. CARDIOVASCULAR: S1 and S2 present. No murmurs, rubs, or gallops. PULMONARY: Decreased air entry with scattered wheezing and bilateral crepitation ABDOMEN: Soft, nontender, nondistended, normoactive bowel sounds. No palpable organomegaly. MUSCULOSKELETAL: No joint swelling or deformity. EXTREMITIES: No cyanosis, clubbing, or pedal edema. Multiple bilateral leg ulcers including both heels and right lateral willis with large scabbing noted over entire surface of the wound. No surrounding redness or erythema noted although there is now some purulent drainage noted from the willis. No evidence of overt surrounding cellulitis NEUROLOGICAL: Gross neurological examination did not reveal any focal deficits. Unable to assess as patient is on sedation SKIN: No rashes. no petechiae. Assessment: Acute hypoxic respiratory failure requiring intubation and mechanical ventilation COPD with exacerbation Multiple pressure ulcers with suspected infection Aflutter with RVR Moderate calorie malnutrition with a BMI of 21.1 multiple leg wounds focal scar versus speculated nodule in the right upper lobe, will need outpatient PET scan History of hypertension, currently he is hypotensive Hyperlipidemia Dehydration Chronic altered mental status with some elements of acute related to metabolic encephalopathy. Possible dementia History of osteoarthritis History of chronic nonpressure ulcer of the back DVT prophylaxis: Subcutaneous Lovenox GI Prophylaxis: Pepcid Full code Plan: Recommend continue on antibiotics and infectious disease is following. General surgery also consulted and following and plan is for debridement of the right willis today and will await cultures Recommend continue on IV steroids along with breathing inhalational treatments. Patient is continued on mechanical vent with an FiO2 of 30% and PEEP is 6 with frequent sedation holidays to assess mentation and possible weaning with no plans for weaning at this time Recommend continue on D5 in water and follow-up with recommended labs Recommend follow-up chest x-ray in the morning Pulmonary and cardiology following Overall Prognosis is extremely poor and guarded CODE STATUS Full code per per staff The impression and plan of care has been dictated by Lucy Reyes, Nurse Practitioner as directed. Dr. Bharat MD I have performed a history and examination and MDM of this patient, discussed the same with the dictator, and agree with the dictator's assessment and plan as written ,documented as a scribe. Based on total visit time, I have performed more than 50% of the visit. Objective - Vital Signs Vital signs: Vital Signs Temp 98.4 F 08/24/21 04:00 Pulse 71 08/24/21 08:21 Resp 13 08/24/21 07:00 BP 101/62 08/22/21 23:55 Pulse Ox 97 08/24/21 07:00 FiO2 30 08/24/21 07:29 Intake & Output 08/23/21 08/24/21 08/24/21 18:59 06:59 18:59 Intake Total 2044.785 1691.109 113 Output Total 795 735 80 Balance 1249.785 956.109 33 Weight 62.8 kg Intake: IV 360 1350 113 Dextrose 5% in Water 1, 1200 100 000 ml @ 100 mls/hr IV . Q10H [facility] Rx#:[id number] Piperacillin-Tazobactam 3 200 .375 gm In Sodium Chloride 0.9% 100 ml @ 25 mls/hr IVPB Q8HR [facility] Rx# :[id number] Sodium Chloride 0.9% 1, 160 120 10 000 ml @ 20 mls/hr IV . Q24H [facility] Rx#:[id number] pressure bag 30 3 Intake, IV Titration 995.785 161.109 Amount Dextrose 5% in Water 1, 800 000 ml @ 100 mls/hr IV . Q10H [facility] Rx#:[id number] propofoL 1,000 mg In 195.785 161.109 Empty Bag 1 bag @ 5 MCG/ KG/MIN 1.629 mls/hr IV . Q24H [facility] Rx#:[id number] Tube Feeding 539 180 Other 150 0 Output: Urine 795 735 80 Other: Voiding Method Indwelling Catheter Indwelling Catheter # Bowel Movements 1 ABP, PAP, CO, CI - Last Documented Arterial Blood Pressure 179/42 - Labs CBC & Chem 7: 08/24/21 04:30 08/24/21 04:30 Labs: Abnormal Lab Results - Last 24 Hours (Table) 08/23/21 08/23/21 08/23/21 Range/Units 11:28 18:02 23:52 WBC (3.8-10.6) k/uL RBC (4.30-5.90) m/uL Hgb (13.0-17.5) gm/dL Hct (39.0-53.0) % MCHC (31.0-37.0) g/dL RDW (11.5-15.5) % Neutrophils # (1.3-7.7) k/uL Lymphocytes # (1.0-4.8) k/uL ABG pH (7.35-7.45) ABG O2 Saturation (94-97) % Chloride (98-107) mmol/L BUN (9-20) mg/dL Glucose (74-99) mg/dL POC Glucose (mg/dL) 165 H 196 H 197 H (75-99) mg/dL Calcium (8.4-10.2) mg/dL 08/24/21 08/24/21 08/24/21 Range/Units 04:30 04:30 05:22 WBC 14.8 H (3.8-10.6) k/uL RBC 2.48 L (4.30-5.90) m/uL Hgb 7.4 L (13.0-17.5) gm/dL Hct 24.5 L (39.0-53.0) % MCHC 30.1 L (31.0-37.0) g/dL RDW 20.1 H (11.5-15.5) % Neutrophils # 14.1 H (1.3-7.7) k/uL Lymphocytes # 0.3 L (1.0-4.8) k/uL ABG pH 7.32 L (7.35-7.45) ABG O2 Saturation 98.6 H (94-97) % Chloride 118 H (98-107) mmol/L BUN 41 H (9-20) mg/dL Glucose 130 H (74-99) mg/dL POC Glucose (mg/dL) (75-99) mg/dL Calcium 7.2 L (8.4-10.2) mg/dL 08/24/21 Range/Units 05:55 WBC (3.8-10.6) k/uL RBC (4.30-5.90) m/uL Hgb (13.0-17.5) gm/dL Hct (39.0-53.0) % MCHC (31.0-37.0) g/dL RDW (11.5-15.5) % Neutrophils # (1.3-7.7) k/uL Lymphocytes # (1.0-4.8) k/uL ABG pH (7.35-7.45) ABG O2 Saturation (94-97) % Chloride (98-107) mmol/L BUN (9-20) mg/dL Glucose (74-99) mg/dL POC Glucose (mg/dL) 144 H (75-99) mg/dL Calcium (8.4-10.2) mg/dL Microbiology - Last 24 Hours (Table) 08/18/21 06:04 Blood Culture - Final Blood No Growth after 144 hours
--- NOTE | 2021-08-24 10:22 | P.PN ---
Subjective Progress Note Date: 08/24/21 71-year-old male patient with known history of severe end-stage COPD, with a baseline FEV1 of 0.67 L or 25% predicted as November 2020 PFT, on home oxygen patient usually wears 3 L of oxygen on a regular basis, ex-smoker, chronic dyspnea, hypertension, hyperlipidemia, osteoarthritis, cachexia, chronic nonhealing ulcers involving bilateral feet. Patient was recently required hospitalization in the last several weeks at the [facility] when he required mechanical ventilator support. Patient follows with Dr. Hall in the pulmonary clinic. On 08/17/2021 patient presents to the emergency department from a group home because of weakness and fatigue. Patient was also complaining of some chest discomfort in the morning, and shortness of breath. Denied any recent fever or chills. No worsening cough wheezing or phlegm production. No hemoptysis. Chest x-ray showed small bilateral pleural effusions with minimal subsegmental atelectasis at the left base. EKG showed sinus rhythm, with minimal ST depression in inferior leads, and T-wave inversion in aVL and LVH. Laboratory evaluation showed elevated white count of 17.7, hemoglobin of 10.0, platelet count of 285, d-dimer was mildly elevated to 0.97, sodium is 144, potassium is 5.1, BUN of 32, creatinine 0.69, 2 sets of troponins were negative at 0.020, less than 0.012, pro-calcitonin level was elevated to 0.50, TSH was within normal limits, LFTs were within normal limits, plasma lactic acid was 1.3 urinalysis without sign of infection. CT angiogram of the chest showed no evidence of acute pulmonary embolism, and moderate emphysematous change with small size right greater than left pleural effusions. There was foc al scarring versus spiculated nodule in the posterior right upper lobe which is new from 2014 study with recommendation of follow-up PET scan. Patient is currently on 3 L of oxygen pulse ox is 99%, he is very short of breath at rest, but appears to be in no acute distress, he is able to answer some simple questions, but he does have conversational dyspnea as well. Afebrile, he is tachycardic, cardiology has been consulted for SVT. Patient is on amiodarone infusion at 1 mg/m for rate control, he is on empiric antibiotics and breathing treatments and IV steroids. The patient is seen today 08/19/2021 in follow-up on the selective care unit. Upon arrival the patient was quite obtunded and unarousable and breathing shallow. He was immediately transferred to the intensive care unit requiring emergent intubation and placed on the mechanical ventilator. Initial settings included assist control mode with a rate of 20, tidal volume 350, FiO2 100% and a PEEP of 5. Left subclavian triple-lumen catheter place. Right radial arterial line placed. Arterial blood gases revealed a PaO2 of 124, pCO2 of 65 and a pH of 7.19. His respiratory rate was increased to 28. PEEP increased to 8. Plans to titrate down the FiO2. White count 11.6. Hemoglobin 8.6. Platelets 256. Sodium 143. Potassium 4.9. Chloride 113. BUN 44. Creatinine 1.42. Glucose 134. AST 42. ALT 195. Albumin 2.8. He is currently sedated on propofol at 50 mcg/kg/m. To be given 1-2 L of fluid resuscitation. Chest x-ray reveals no evidence of pneumothorax, satisfactory positioning of the endotracheal and orogastric tubes. There is worsening left lung edema/infiltrates. Improved aeration of the right lung base. Augmentin discontinued. Initiated on Zosyn. Pro-calcitonin pending. Culture revealing no growth to date. He was initially in atrial fibrillation requiring amiodarone . He is continued on bronchodilators, IV Solu-Medrol. He remains in a positive balance. The patient is seen today 08/20/2021 in follow-up in the intensive care unit. He remains intubated on mechanical ventilator. Still notices control mode with a rate of 28, attentive on 350, FiO2 40% and a PEEP of 8. Morning blood gases revealed a PaO2 of 113, pCO2 42, pH 7.32. He remains sedated on propofol at 75 mcg/kg/m. He has normal saline running at 100 ML's per hour. He is being nourished with vital HPI at 20 ML's per hour with a goal of 36. He is on antibiotics in the form of Zosyn. He is continued on DuoNeb inhalations, Pulmicort and Perforomist inhalations, IV Solu-Medrol. Chest x-ray continues to show mildly improved aeration in the left lung with persistent multifocal airspace opacities. Small bilateral effusions left greater than right. Evidence of COPD. Endotracheal, nasogastric tubes and left central venous catheter all in appropriate position. Blood culture reveals no growth to date. Sputum cultures pending. White count 8.3. Hemoglobin 7.1. Platelets 188. Sodium 143. Potassium 4.8. Chloride 116. Bicarb 21. BUN 44. Creatinine 1.44. Glucose 156. Currently in a +2.5 L. Currently in sinus rhythm. He remains on oral amiodarone. Lovenox for DVT prophylaxis. The patient is seen today 08/21/2021 in follow-up in the intensive care unit. He remains intubated on mechanical ventilator. Currently an assist-control mode. Rate of 28, tidal volume 350, FiO2 35% and a PEEP of 8. Morning blood gases revealed a PaO2 of 108, pCO2 42 and a pH of 7.31. He remains sedated on propofol at 75 mcg/kg/m. He has normal saline at 100 ML's per hour. He is being nourished with vital HPI at 36 ML's per hour. Chest x-ray can continues to show some improvement in the left lower lung. He remains on Zosyn. Endotracheal tube to be advanced 2 cm. Pro-calcitonin was 0.41. Blood culture reveals no growth. Sputum culture pending. White count 6.6. Hemoglobin 7.5. Platelets 163. Sodium 142. Potassium 4.2. Bicarb 21. BUN 39. Creatinine 1.26. Glucose 202. He is currently in a +3.2 L balance. He remains on DuoNeb inhalations, Pulmicort and Perforomist inhalations, IV Solu-Medrol. Antibiotics in the form of Zosyn. Lovenox for DVT prophylaxis. He remains hemodynamically stable. 08/22/2021, the patient is being seen for a follow-up. As mentioned, a 71-year-old male patient with advanced COPD with an FEV1 of 0.67 L benefit 1 of around 25% of predicted, with known history of chronic hypoxic respiratory failure maintained on oxygen at 3 L and currently the patient intubated on a mechanical ventilator. He is on propofol running at [place] micrograms per kilogram per minute. The patient is an assist-control mode of mechanical ventilation at the rate of 28 with a tidal volume of 350 and FiO2 of 30% with a PEEP of 8. Peak airway pressure is around 26-30. The patient has an auto PEEP which is in the order of 3 cm of water. The blood gases from today shows a pH of 7.30 with a pCO2 of 40 and pO2 of 116. His serum bicarbonate is at 20, and the patient could have been potentially a CO2 retainer with chronic metabolic alkalosis and this can be relative acidosis. The rest of the blood work shows a sodium level of 146, potassium of 3.7, BUN of 38 with a creatinine of 0.9. The white cell count is at 9 with a hemoglobin of 7.2. The patient is currently covered empirically with IV Zosyn. The chest x-ray from today is showing adequate positioning of the ET tube. The patient has bilateral lower lobe small pleural effusions. No major interval change compared to yesterday. He remains on DuoNeb nebulized treatments around the clock. Remains on IV Solu-Medrol and remains on IV Zosyn. The pro-calcitonin level was at 0.631 at a time of admission. Lactic acid level was nonelevated the time of admission. The patient has a flutter rhythm and currently is on oral amiodarone. He is also on anticoagulation with Lovenox 50 mg subcu every 12 hours under the recommendations of cardiology. Note that the patient also has chronic once and the wounds are multiple involving the right forearm where he is a skin tear, right calf ulcer, right willis, left thigh, left foot and left elbow and he also has a sacral wound stage II. None of these wounds are draining. The one on his right willis is covered with a rather thick scab which is extending in the area under his knee to the mid the patient is also on goal enteral feeding and the pa tient is currently on vital high protein right running at the rate of 36. 08/23 2021, the patient remains intubated on a mechanical ventilator. This morning, he remains on propofol running at 60 mcg/kg per minute. The patient is quite sensitive a mechanical ventilator. He remains on assist control mode at the rate of 40 with a tidal volume of 325 with an FiO2 of 30% and a PEEP of 6. Peak airway pressures around 25. His I:E ratio is 1-6. No significant rest or secretions. Blood gases showed a pH of 7.32 with a pCO2 of 43 and pO2 of 92. The patient remains on assist control mode of mechanical ventilation, volume cycle. The chest x-ray is not showing any acute abnormalities. ET tube is in a good location. There is hyperinflation consistent with COPD. There is also increased haziness in lung bases bilaterally compared to yesterday chest x-ray, possibly some effusion/pulmonary vessel congestion.. Note that the patient remains on IV Zosyn. His pro-calcitonin level at the time of admission was 0.631. His lactic acid level was nonelevated. He remains in atrial flutter rhythm with a controlled rate. No major changes in his condition since yesterday. He is receiving enteral feeding for nutritional support and currently he is on [place] running good today shows 36. The patient is afebrile. The patient is hemodynamically stable. The patient is on no pressors for now. In terms of his cardiac status, the patient remains on oral amiodarone and Lopressor and the patient is also on Lovenox 50 mg subcu every 12 hours per cardiology as an anticoagulant. He does have multiple wounds throughout his lower extremity and upper extremity and the sacrum. He is extensively debilitated. His blood work from today showing a sodium level of 147, potassium of 4 Cardizem 121 with a BUN of 40 and a creatinine of 0.9. Blood sugar is 153. The white cell count is currently at 12.6 with a hemoglobin of 7.3 and a platelet count of 160s . Upon further inspection, the right leg wounds which has a large eschar is draining some purulent material and this needs to be further debrided. 08/24/2021, the patient remains on a mechanical ventilator. He received a sed at holiday yesterday. He went on for a total of 2.5 half hours. He open up his eyes and he was not following any commands and at that point, he was having some autonomic reactions and he was started back on sedation. This morning, he was on propofol at 50 mcg/kg per minute. He is in the process of getting another sedation holiday. He is off sedation for around half an hour. His opening up his eyes. His grimacing to painful stimulation. He is not following any commands. Does not move and is quite debilitated and extremely weak at this point in time. The patient remains on a mechanical ventilator on assist control mode at the rate of 14 with a tidal volume of 375 and FiO2 of 30% with a PEEP of 6. Peak airway pressures 27. Blood gases from today show a pH of 7.32 with a pCO2 of 44 and pO2 of 108. Chest x-ray from today is showing no significant interval change. ET tube remains in a good location. The patient has no evidence of any pneumothorax. There is hyperinflation regarding his underlying COPD. There is increased haziness in the lung bases bilaterally and a component of mild pulmonary vascular congestion. The tip of the orotracheal tube is around 3.5 cm above the josette. There is persistent patchy opacity in the left mid and lower lung hawk slightly more prominent on today's evaluation. Meanwhile, the patient's has a white cell count of 14.8. Hemoglobin is at 7.4. He had is a 41 with a creatinine of 0.8 and a sodium level of 142. He is afebrile for now. His pro-calcitonin level from 08/19/2021 was 0.41. His fluid balance over the past 24 hours is +2.2 L and the patient is currently on D5W at the rate of 100 mL an hour and the patient is receiving enteral feeding for nutritional support and he is receiving vital high protein at the rate of 29 mL an hour. Note that the patient's that have a component of hyponatremia yesterday and for that reason he was started on free water supplements. Gen. surgery was also consulted on this patient regarding his wounds and the large eschar over the right lower extremity and this needs to be debrided a later stage. My concern is that the patient is extremely debilitated and he may not be a good candidate for weaning and he may not reach a successful weaning off the mechanical ventilator. I have were discussed this with his . Objective - Vital Signs Vital signs: Vital Signs Temp 97.8 F 08/24/21 08:00 Pulse 63 08/24/21 09:00 Resp 20 08/24/21 09:00 BP 101/62 08/22/21 23:55 Pulse Ox 93 L 08/24/21 09:00 FiO2 30 08/24/21 08:00 Intake & Output 08/23/21 08/24/21 08/24/21 18:59 06:59 18:59 Intake Total 2044.785 1691.109 545.065 Output Total 795 735 215 Balance 1249.785 956.109 330.065 Weight 62.8 kg 62.8 kg Intake: IV 360 1350 339 Dextrose 5% in Water 1, 1200 300 000 ml @ 100 mls/hr IV . Q10H [facility] Rx#:[id number] Piperacillin-Tazobactam 3 200 .375 gm In Sodium Chloride 0.9% 100 ml @ 25 mls/hr IVPB Q8HR GRACIE Rx# :[id number] Sodium Chloride 0.9% 1, 160 120 30 000 ml @ 20 mls/hr IV . Q24H GRACIE Rx#:[id number] pressure bag 30 9 Intake, IV Titration 995.785 161.109 74.065 Amount Dextrose 5% in Water 1, 800 000 ml @ 100 mls/hr IV . Q10H GRACIE Rx#:[id number] propofoL 1,000 mg In 195.785 161.109 74.065 Empty Bag 1 bag @ 5 MCG/ KG/MIN 1.629 mls/hr IV . Q24H GRACIE Rx#:[id number] Tube Feeding 539 180 72 Other 150 0 60 Output: Urine 795 735 215 Other: Voiding Method Indwelling Catheter Indwelling Catheter Indwelling Catheter # Bowel Movements 1 1 ABP, PAP, CO, CI - Last Documented Arterial Blood Pressure 186/46 - Exam GENERAL EXAM: Intubated, sedated cachectic-looking 71-year-old male. , The patient grimaces deep painful stimulation. Currently is receiving a sedation holiday. He remains intubated and orotracheal and orogastric tube are both in place. HEAD: Normocephalic/atraumatic. EYES: Normal reaction of pupils, equal size. Conjunctiva pink, sclera white. NOSE: Clear with pink turbinates. THROAT: No erythema or exudates. NECK: No masses, no JVD, no thyroid enlargement, no adenopathy. CHEST: No chest wall deformity. Symmetrical expansion. LUNGS: Equal air entry with diffuse crackles, diminished breath sounds CVS: Regular rate and rhythm, normal S1 and S2, no gallops, no murmurs, no rubs ABDOMEN: Soft, nontender. No hepatosplenomegaly, normal bowel sounds, no guarding or rigidity. EXTREMITIES: No clubbing, there is edema in his upper extremities bilaterally, no cyanosis, 2+ pulses and upper and lower extremities. MUSCULOSKELETAL: Muscle strength and tone normal. SPINE: No scoliosis or deformity SKIN: No rashes, the patient has an large-sized eschar over the right lower extremity wound edges draining some purulent material, he also has all kinds of wounds and skin tears on his heels, and forearms and legs. Nevertheless, the dominant one is his right lower extremity and his coccyx which is a stage II. CENTRAL NERVOUS SYSTEM: Sedated. Tone is normal in all 4 extremities. PSYCHIATRIC: Unable to assess - Labs CBC & Chem 7: 08/24/21 04:30 08/24/21 04:30 Labs: Abnormal Lab Results - Last 24 Hours (Table) 08/23/21 08/23/21 08/23/21 Range/Units 11:28 18:02 23:52 WBC (3.8-10.6) k/uL RBC (4.30-5.90) m/uL Hgb (13.0-17.5) gm/dL Hct (39.0-53.0) % MCHC (31.0-37.0) g/dL RDW (11.5-15.5) % Neutrophils # (1.3-7.7) k/uL Lymphocytes # (1.0-4.8) k/uL ABG pH (7.35-7.45) ABG O2 Saturation (94-97) % Chloride (98-107) mmol/L BUN (9-20) mg/dL Glucose (74-99) mg/dL POC Glucose (mg/dL) 165 H 196 H 197 H (75-99) mg/dL Calcium (8.4-10.2) mg/dL 08/24/21 08/24/21 08/24/21 Range/Units 04:30 04:30 05:22 WBC 14.8 H (3.8-10.6) k/uL RBC 2.48 L (4.30-5.90) m/uL Hgb 7.4 L (13.0-17.5) gm/dL Hct 24.5 L (39.0-53.0) % MCHC 30.1 L (31.0-37.0) g/dL RDW 20.1 H (11.5-15.5) % Neutrophils # 14.1 H (1.3-7.7) k/uL Lymphocytes # 0.3 L (1.0-4.8) k/uL ABG pH 7.32 L (7.35-7.45) ABG O2 Saturation 98.6 H (94-97) % Chloride 118 H (98-107) mmol/L BUN 41 H (9-20) mg/dL Glucose 130 H (74-99) mg/dL POC Glucose (mg/dL) (75-99) mg/dL Calcium 7.2 L (8.4-10.2) mg/dL 08/24/21 Range/Units 05:55 WBC (3.8-10.6) k/uL RBC (4.30-5.90) m/uL Hgb (13.0-17.5) gm/dL Hct (39.0-53.0) % MCHC (31.0-37.0) g/dL RDW (11.5-15.5) % Neutrophils # (1.3-7.7) k/uL Lymphocytes # (1.0-4.8) k/uL ABG pH (7.35-7.45) ABG O2 Saturation (94-97) % Chloride (98-107) mmol/L BUN (9-20) mg/dL Glucose (74-99) mg/dL POC Glucose (mg/dL) 144 H (75-99) mg/dL Calcium (8.4-10.2) mg/dL Microbiology - Last 24 Hours (Table) 08/18/21 06:04 Blood Culture - Final Blood No Growth after 144 hours Assessment and Plan Plan: 1 Acute exacerbation of COPD with acute hypoxemic respiratory failure requiring intubation and mechanical ventilation on 08/19/2021 chest x-ray showing bilateral lower lobe infiltrates/effusions, in addition to left perihilar pulmonary infiltrate. Patient is afebrile. The patient is hemodynamically st able. The patient is currently covered with antibiotics and is currently being IV Zosyn. Cultures are all negative thus far. The pro-calcitonin LEVEL WAS NONELEVATED.. The blood gas and a chest x-ray was noted. ' 2 A flutter with RVR, currently in sinus rhythm, on oral amiodarone, Lovenox 3 History of severe end-stage COPD with baseline FEV1 of 25% of predicted 4 Chronic hypoxic respiratory failure related to the above 5 Former smoker 6 Nonhealing bilateral lower extremity ulcers 7 Elevated pro-calcitonin level, rule out possibility of infection, currently on Zosyn 8 Mildly elevated d-dimer, with no CT evidence of pulmonary embolism 9 Focal scarring versus spiculated nodule in the right upper lobe, will need outpatient follow-up, and possible PET scan 10 Chronic cachexia 11 Hypertension 12 Hyperlipidemia 13 Hypothyroidism 14 Osteoarthritis 15 hyperchloremic hypernatremia, mild, improved with free water supplements 15 multiple wounds with a large eschar over the right lower extremity and the patient has very stages of skin wounds throughout his body in addition to skin tears and a coccygeal wound stage II Plan: No ventilator changes for today Sedation holiday Check weaning parameters This will be a very difficult extubation based on his advanced COPD and comorbidities. He is extremely cachectic and emaciated. I would like to have a discussion with his family in touch base and explained to them the critical nature of the problem and his poor prognosis. He is a group home resident and is been essentially debilitated over this past several years. DC D5 water for now Given a dose of Lasix 40 mg IV push Keep the IV fluids at KVO Remains on Zosyn, DuoNeb inhalations Continue Pulmicort and Perforomist inhalations, IV Solu-Medrol Overall prognosis remains quite guarded Continue enteral feeding for nutritional support Continue thyroid hormone replacement Continue amiodarone continue Lovenox Condition is critical. Confidence hold and the patient was weaned off the mechanical ventilator. His recovery from sedation is been suboptimal and the patient is not showing adequate signs of neurologic recovery once off sedation. He is extremely weak. He is also extremely debilitated. If the family is interested in ongoing treatment, I may propose a tracheostomy and a PEG tube insertion of a later stage. General surgery for wound debridement Critically care evaluation was done and more than 30 minutes. Time with Patient: Greater than 30
[2021-08-24] MEDS ORDERED: FUROSEMIDE 10 MG/ML 4 ML VIAL IV STA (10:24)
[2021-08-24] MEDS: SODIUM CHLORIDE 0.9% 1,000 ML IV SCH (10:48)
--- NOTE | 2021-08-24 10:54 | P.PN ---
Subjective Patient remains intubated Today he is in sinus rhythm Elevated blood pressure readings Last night he was in atrial fibrillation/atrial tachycardia for about 2 The dose of metoprolol was increased 200 mg twice daily History we are also started amlodipine 5 g daily for hypertension On examination reduced breath sounds bilaterally Heart sounds S1 and S2 are soft Blood pressure 80/45 mmHg, pulse rate in the 60s Abdomen soft Impression Hypertension Atrial fibrillation, currently in sinus rhythm, short recurrences yesterday Plan Continue oral amiodarone 200 mg twice daily for a limited one month only Increase amlodipine to 10 mg by mouth daily Continue the higher dose of beta blockers Objective - Vital Signs Vital signs: Vital Signs Temp 97.8 F 08/24/21 08:00 Pulse 66 08/24/21 10:00 Resp 17 08/24/21 10:00 BP 101/62 08/22/21 23:55 Pulse Ox 96 08/24/21 10:00 FiO2 30 08/24/21 08:00 Intake & Output 08/23/21 08/24/21 08/24/21 18:59 06:59 18:59 Intake Total 2044.785 1691.109 687.065 Output Total 795 735 265 Balance 1249.785 956.109 422.065 Weight 62.8 kg 62.8 kg Intake: IV 360 1350 452 Dextrose 5% in Water 1, 1200 400 000 ml @ 100 mls/hr IV . Q10H [facility] Rx#:[id number] Piperacillin-Tazobactam 3 200 .375 gm In Sodium Chloride 0.9% 100 ml @ 25 mls/hr IVPB Q8HR [facility] Rx# :[id number] Sodium Chloride 0.9% 1, 160 120 40 000 ml @ 20 mls/hr IV . Q24H [facility] Rx#:[id number] pressure bag 30 12 Intake, IV Titration 995.785 161.109 74.065 Amount Dextrose 5% in Water 1, 800 000 ml @ 100 mls/hr IV . Q10H [facility] Rx#:[id number] propofoL 1,000 mg In 195.785 161.109 74.065 Empty Bag 1 bag @ 5 MCG/ KG/MIN 1.629 mls/hr IV . Q24H [facility] Rx#:[id number] Tube Feeding 539 180 101 Other 150 0 60 Output: Urine 795 735 265 Other: Voiding Method Indwelling Catheter Indwelling Catheter Indwelling Catheter # Bowel Movements 1 1 ABP, PAP, CO, CI - Last Documented Arterial Blood Pressure 180/45 - Labs CBC & Chem 7: 08/24/21 04:30 08/24/21 04:30 Labs: Abnormal Lab Results - Last 24 Hours (Table) 08/23/21 08/23/21 08/23/21 Range/Units 11:28 18:02 23:52 WBC (3.8-10.6) k/uL RBC (4.30-5.90) m/uL Hgb (13.0-17.5) gm/dL Hct (39.0-53.0) % MCHC (31.0-37.0) g/dL RDW (11.5-15.5) % Neutrophils # (1.3-7.7) k/uL Lymphocytes # (1.0-4.8) k/uL ABG pH (7.35-7.45) ABG O2 Saturation (94-97) % Chloride (98-107) mmol/L BUN (9-20) mg/dL Glucose (74-99) mg/dL POC Glucose (mg/dL) 165 H 196 H 197 H (75-99) mg/dL Calcium (8.4-10.2) mg/dL 08/24/21 08/24/21 08/24/21 Range/Units 04:30 04:30 05:22 WBC 14.8 H (3.8-10.6) k/uL RBC 2.48 L (4.30-5.90) m/uL Hgb 7.4 L (13.0-17.5) gm/dL Hct 24.5 L (39.0-53.0) % MCHC 30.1 L (31.0-37.0) g/dL RDW 20.1 H (11.5-15.5) % Neutrophils # 14.1 H (1.3-7.7) k/uL Lymphocytes # 0.3 L (1.0-4.8) k/uL ABG pH 7.32 L (7.35-7.45) ABG O2 Saturation 98.6 H (94-97) % Chloride 118 H (98-107) mmol/L BUN 41 H (9-20) mg/dL Glucose 130 H (74-99) mg/dL POC Glucose (mg/dL) (75-99) mg/dL Calcium 7.2 L (8.4-10.2) mg/dL 08/24/21 Range/Units 05:55 WBC (3.8-10.6) k/uL RBC (4.30-5.90) m/uL Hgb (13.0-17.5) gm/dL Hct (39.0-53.0) % MCHC (31.0-37.0) g/dL RDW (11.5-15.5) % Neutrophils # (1.3-7.7) k/uL Lymphocytes # (1.0-4.8) k/uL ABG pH (7.35-7.45) ABG O2 Saturation (94-97) % Chloride (98-107) mmol/L BUN (9-20) mg/dL Glucose (74-99) mg/dL POC Glucose (mg/dL) 144 H (75-99) mg/dL Calcium (8.4-10.2) mg/dL Microbiology - Last 24 Hours (Table) 08/18/21 06:04 Blood Culture - Final Blood No Growth after 144 hours
[2021-08-24 11:19] LABS: Glucose,Whole Blood 172 mg/dL (75-99)
[2021-08-24] MEDS ORDERED: Magnesium Replacement Protocol 1 EACH MISC MISCELLANE PRN (13:54)
[2021-08-24] MEDS: MAGNESIUM SULFATE-D5W PMX 1 GM in DEXTROSE/WATER 1 100ML.BAG IVPB SCH ×2 (14:00→15:47)
[2021-08-24] MEDS ORDERED: Potassium Replacement Protocol 1 EACH MISC MISCELLANE PRN (14:37)
--- NOTE | 2021-08-24 14:38 | P.PN ---
Subjective Progress Note Date: 08/24/21 CHIEF COMPLAINT: Right leg wound HISTORY OF PRESENT ILLNESS: Patient remains in the ICU and intubated. He remains on sedation. Surgical service is following in regards to his right leg pressure ulcer. Due to scheduling conflict in the OR patient's debridement will be postponed until Sunday this week. Patient is receiving tube feeds through NG tube for nutrition support. Afebrile. Heart rate 115 WBC trending up from 12.6-14.8 hemoglobin 7.4 sodium 142 potassium is 3.5 creatinine 0.87 Patient seen and examined with Dr. Corbin PHYSICAL EXAM: VITAL SIGNS: Reviewed. ABDOMEN: Soft. Nondistended. NEUROLOGIC: Intubated and sedated Extremities right lower leg pressure ulceration with large scab ASSESSMENT: 1. Right lower leg pressure ulcer PLAN: -Patient scheduled for debridement of right lower leg pressure ulcer on 08/26/[address] corbin -Resume tube feedings no surgery planned for today -Continue ICU management -Continue supportive care Physician Telephone Interviewer note has been reviewed by physician. Signing provider agrees with the documented findings, assessment, and plan of care. Objective - Vital Signs Vital signs: Vital Signs Temp 97.9 F 08/24/21 12:00 Pulse 108 H 08/24/21 13:00 Resp 20 08/24/21 13:00 BP 101/62 08/22/21 23:55 Pulse Ox 97 08/24/21 13:00 FiO2 30 08/24/21 12:00 Intake & Output 08/23/21 08/24/21 08/24/21 18:59 06:59 18:59 Intake Total 2044.785 1691.109 962.065 Output Total 034 519 9826 Balance 1249.785 956.109 -427.935 Weight 62.8 kg 62.8 kg Intake: IV 360 1350 521 Dextrose 5% in Water 1, 1200 400 000 ml @ 100 mls/hr IV . Q10H [facility] Rx#:[id number] Piperacillin-Tazobactam 3 200 .375 gm In Sodium Chloride 0.9% 100 ml @ 25 mls/hr IVPB Q8HR [facility] Rx# :[id number] Sodium Chloride 0.9% 1, 160 120 100 000 ml @ 20 mls/hr IV . Q24H [facility] Rx#:[id number] pressure bag 30 21 Intake, IV Titration 995.785 161.109 74.065 Amount Dextrose 5% in Water 1, 800 000 ml @ 100 mls/hr IV . Q10H [facility] Rx#:[id number] propofoL 1,000 mg In 195.785 161.109 74.065 Empty Bag 1 bag @ 5 MCG/ KG/MIN 1.629 mls/hr IV . Q24H [facility] Rx#:[id number] Tube Feeding 539 180 277 Other 150 0 90 Output: Urine 960 911 8584 Other: Voiding Method Indwelling Catheter Indwelling Catheter Indwelling Catheter # Bowel Movements 1 1 ABP, PAP, CO, CI - Last Documented Arterial Blood Pressure 166/51 - Labs CBC & Chem 7: 08/24/21 04:30 08/24/21 14:00 Labs: Abnormal Lab Results - Last 24 Hours (Table) 08/23/21 08/23/21 08/24/21 Range/Units 18:02 23:52 04:30 WBC 14.8 H (3.8-10.6) k/uL RBC 2.48 L (4.30-5.90) m/uL Hgb 7.4 L (13.0-17.5) gm/dL Hct 24.5 L (39.0-53.0) % MCHC 30.1 L (31.0-37.0) g/dL RDW 20.1 H (11.5-15.5) % Neutrophils # 14.1 H (1.3-7.7) k/uL Lymphocytes # 0.3 L (1.0-4.8) k/uL ABG pH (7.35-7.45) ABG O2 Saturation (94-97) % Chloride (98-107) mmol/L BUN (9-20) mg/dL Glucose (74-99) mg/dL POC Glucose (mg/dL) 196 H 197 H (75-99) mg/dL Calcium (8.4-10.2) mg/dL 08/24/21 08/24/21 08/24/21 Range/Units 04:30 05:22 05:55 WBC (3.8-10.6) k/uL RBC (4.30-5.90) m/uL Hgb (13.0-17.5) gm/dL Hct (39.0-53.0) % MCHC (31.0-37.0) g/dL RDW (11.5-15.5) % Neutrophils # (1.3-7.7) k/uL Lymphocytes # (1.0-4.8) k/uL ABG pH 7.32 L (7.35-7.45) ABG O2 Saturation 98.6 H (94-97) % Chloride 118 H (98-107) mmol/L BUN 41 H (9-20) mg/dL Glucose 130 H (74-99) mg/dL POC Glucose (mg/dL) 144 H (75-99) mg/dL Calcium 7.2 L (8.4-10.2) mg/dL 08/24/21 Range/Units 11:18 WBC (3.8-10.6) k/uL RBC (4.30-5.90) m/uL Hgb (13.0-17.5) gm/dL Hct (39.0-53.0) % MCHC (31.0-37.0) g/dL RDW (11.5-15.5) % Neutrophils # (1.3-7.7) k/uL Lymphocytes # (1.0-4.8) k/uL ABG pH (7.35-7.45) ABG O2 Saturation (94-97) % Chloride (98-107) mmol/L BUN (9-20) mg/dL Glucose (74-99) mg/dL POC Glucose (mg/dL) 172 H (75-99) mg/dL Calcium (8.4-10.2) mg/dL Microbiology - Last 24 Hours (Table) 08/18/21 06:04 Blood Culture - Final Blood No Growth after 144 hours
[2021-08-24] MEDS: POTASSIUM BICARBONATE/CIT AC 20 MEQ TABLET.EFF NG-TUBE SCH ×2 (14:53→16:20)
[2021-08-24 17:45] LABS: Glucose,Whole Blood 177 mg/dL (75-99)
[2021-08-24] MEDS: DEXMEDETOMIDINE/0.9% NACL(PMX) 400 MCG in EMPTY BAG 1 BAG IV SCH (21:28)
[2021-08-24 23:32] LABS: Glucose,Whole Blood 141 mg/dL (75-99)
[2021-08-25] MEDS: traMADol 50 MG TAB PO PRN ×2 (00:07→20:18)
[2021-08-25] MEDS: methylPREDNISolone SOD SUCCI 125 MG/2 ML VIAL IV SCH ×5 (00:11→23:34)
[2021-08-25] MEDS: IPRATROPIUM-ALBUTEROL 3 ML NEB INHALATION SCH ×7 (00:43→23:41)
[2021-08-25] MEDS: HYDROmorphone 1 MG/ML 1 ML SYRINGE IVP PRN ×4 (01:55→22:12)
[2021-08-25 05:39] LABS: Glucose,Whole Blood 166 mg/dL (75-99)
[2021-08-25] MEDS: LEVOTHYROXINE 50 MCG TAB PO SCH (05:42)
[2021-08-25] MEDS: INSULIN ASPART (NovoLOG) 100 UNIT/ML VIAL SQ SCH ×4 (05:42→23:33)
[2021-08-25 06:18] LABS: Allen Test Performed? Yes
[2021-08-25 06:19] LABS: ABG Base Excess -1.2 mmol/L; ABG HCO3 25 mmol/L (21-25); ABG PCO2 48 mmHg (35-45); ABG PH 7.32 (7.35-7.45); ABG PO2 79 mmHg (83-108); ABG TCO2 26 mmol/L (19-24)
[2021-08-25 06:42] LABS: Anisocytosis Slight; HCT 25.9 % (39.0-53.0); HGB 7.8 gm/dL (13.0-17.5); Hypochromasia Marked; MCH 29.4 pg (25.0-35.0); MCHC 29.9 g/dL (31.0-37.0); MCV 98.4 fL (80.0-100.0); Macrocytosis Slight; Mean Platelet Volume 10.9; Platelet Count 201 k/uL (150-450); RBC 2.64 m/uL (4.30-5.90); RDW 19.7 % (11.5-15.5); WBC 15.2 k/uL (3.8-10.6)
[2021-08-25 07:14] LABS: ALT 37 U/L (4-49); AST 10 U/L (17-59); African American GFR (CKD) >90 (>60 ml/min/1.73 sqM); Albumin 2.2 g/dL (3.5-5.0); Alkaline Phosphatase 56 U/L (38-126); Anion Gap 4 mmol/L; Blood Urea Nitrogen 49 mg/dL (9-20); Calcium 7.3 mg/dL (8.4-10.2); Carbon Dioxide 24 mmol/L (22-30); Chloride 114 mmol/L (98-107); Glucose 180 mg/dL (74-99); Magnesium 2.3 mg/dL (1.6-2.3); Non-African American GFR(CKD) 82 (>60 ml/min/1.73 sqM); Potassium 4.1 mmol/L (3.5-5.1); Sodium 142 mmol/L (137-145); Total Bilirubin 0.3 mg/dL (0.2-1.3); Total Protein 4.3 g/dL (6.3-8.2)
--- NOTE | 2021-08-25 08:55 | P.PN ---
Subjective Progress Note Date: 08/25/21 The patient is 71-year-old male who is currently admitted to the hospital with hypoxic respiratory failure secondary to COPD exacerbation. Cardiology was consulted for atrial fibrillation. The patient received IV bolus of amiodarone and is currently on 400 mg oral. Echocardiogram revealed LV function of 50% with moderate aortic stenosis, moderate aortic insufficiency, and moderate mitral regurgitation. The patient was examined in the ICU. The patient is currently mechanically ventilated. He is more alert today as he is now on Precedex. GENERAL: Ill-appearing. Alert with eye tracking. NECK: Supple without JVD or thyromegaly. LUNGS: Breath sounds diminished to auscultation bilaterally. Respiration equal and unlabored. No wheezes, rales or rhonchi. HEART: regular rate and rhythm. Systolic ejection murmur. No rubs or gallops. S1 and S2 heard. EXTREMITIES: Limited range of motion, generalized edema. Wound noted on right lateral lower extremity. No clubbing or cyanosis. Peripheral pulses intact. VITALS: Blood pressure 163/45, pulse 72, respiratory rate 15, SpO2 97% on current vent settings TELEMETRY: Sinus rhythm in the 70s paroxysms of atrial fibrillation LABS: WBC 15.2, hemoglobin 7.8, hematocrit 25.9, platelet 201, sodium 142, potassium 4.1, BUN 49, creatinine 0.94, AST 10, ALT 37 IMPRESSION: Atrial flutter/Atrial fibrillation, brief paroxysms despite high-dose beta bloc ker and oral amiodarone Hypertension, uncontrolled overnight, start amlodipine 5 mg daily Valvular heart disease COPD exacerbation Anemia PLAN: Continue current medication regimen. No additional antihypertensives recommended at this time to avoid hypotension once extubated. Continue Lovenox for anticoagulation. Transition to novel agent once extubated. Further recommendations to be based on clinical course. I am dictating on behalf of Dr John Hutchison's history/physical and assessment/plan. Objective - Vital Signs Vital signs: Vital Signs Temp 98.2 F 08/25/21 04:00 Pulse 72 08/25/21 07:00 Resp 15 08/25/21 07:00 BP 160/44 08/24/21 19:00 Pulse Ox 97 08/25/21 07:00 FiO2 40 08/25/21 04:55 Intake & Output 06/08/22 06/09/22 06/09/22 18:59 06:59 18:59 Intake Total 0683.690 4940.842 90 Output Total 2170 610 160 Balance -422.935 425.842 -70 Weight 62.8 kg 57.3 kg Intake: IV 636 276 46 Dextrose 5% in Water 1, 400 000 ml @ 100 mls/hr IV . Q10H [facility] Rx#:[id number] Sodium Chloride 0.9% 1, 200 240 40 000 ml @ 20 mls/hr IV . Q24H [facility] Rx#:[id number] pressure bag 36 36 6 Intake, IV Titration 374.065 127.842 Amount Dexmedetomidine/0.9% NaCl 27.842 (Pmx) 400 mcg In Empty Bag 1 bag @ 0.2 MCG/KG/HR 3.14 mls/hr IV .Q24H [facility] Rx#:[id number] Magnesium Sulfate-D5w Pmx 200 1 gm In Dextrose/Water 1 100ml.bag @ 100 mls/hr IVPB Q1H [facility] Rx#: [id number] Piperacillin-Tazobactam 3 100 100 .375 gm In Sodium Chloride 0.9% 100 ml @ 25 mls/hr IVPB Q8HR [facility] Rx# :[id number] propofoL 1,000 mg In 74.065 Empty Bag 1 bag @ 5 MCG/ KG/MIN 1.629 mls/hr IV . Q24H [facility] Rx#:[id number] Tube Feeding 497 572 44 Other 240 60 Output: Urine 2170 610 160 Other: Voiding Method Indwelling Catheter Indwelling Catheter # Bowel Movements 1 ABP, PAP, CO, CI - Last Documented Arterial Blood Pressure 163/45 - Labs CBC & Chem 7: 08/25/21 04:30 08/25/21 04:30 Labs: Abnormal Lab Results - Last 24 Hours (Table) 08/24/21 08/24/21 08/24/21 Range/Units 11:18 17:43 23:30 WBC (3.8-10.6) k/uL RBC (4.30-5.90) m/uL Hgb (13.0-17.5) gm/dL Hct (39.0-53.0) % MCHC (31.0-37.0) g/dL RDW (11.5-15.5) % ABG pH (7.35-7.45) ABG pCO2 (35-45) mmHg ABG pO2 (83-108) mmHg ABG Total CO2 (19-24) mmol/L Chloride (98-107) mmol/L BUN (9-20) mg/dL Glucose (74-99) mg/dL POC Glucose (mg/dL) 172 H 177 H 141 H (75-99) mg/dL Calcium (8.4-10.2) mg/dL AST (17-59) U/L Total Protein (6.3-8.2) g/dL Albumin (3.5-5.0) g/dL 08/25/21 08/25/21 08/25/21 Range/Units 04:30 04:30 05:36 WBC 15.2 H (3.8-10.6) k/uL RBC 2.64 L (4.30-5.90) m/uL Hgb 7.8 L (13.0-17.5) gm/dL Hct 25.9 L (39.0-53.0) % MCHC 29.9 L (31.0-37.0) g/dL RDW 19.7 H (11.5-15.5) % ABG pH (7.35-7.45) ABG pCO2 (35-45) mmHg ABG pO2 (83-108) mmHg ABG Total CO2 (19-24) mmol/L Chloride 114 H (98-107) mmol/L BUN 49 H (9-20) mg/dL Glucose 180 H (74-99) mg/dL POC Glucose (mg/dL) 166 H (75-99) mg/dL Calcium 7.3 L (8.4-10.2) mg/dL AST 10 L (17-59) U/L Total Protein 4.3 L (6.3-8.2) g/dL Albumin 2.2 L (3.5-5.0) g/dL 08/25/21 Range/Units 06:14 WBC (3.8-10.6) k/uL RBC (4.30-5.90) m/uL Hgb (13.0-17.5) gm/dL Hct (39.0-53.0) % MCHC (31.0-37.0) g/dL RDW (11.5-15.5) % ABG pH 7.32 L (7.35-7.45) ABG pCO2 48 H (35-45) mmHg ABG pO2 79 L (83-108) mmHg ABG Total CO2 26 H (19-24) mmol/L Chloride (98-107) mmol/L BUN (9-20) mg/dL Glucose (74-99) mg/dL POC Glucose (mg/dL) (75-99) mg/dL Calcium (8.4-10.2) mg/dL AST (17-59) U/L Total Protein (6.3-8.2) g/dL Albumin (3.5-5.0) g/dL Microbiology - Last 24 Hours (Table) 08/18/21 06:04 Blood Culture - Final Blood No Growth after 144 hours
--- NOTE | 2021-08-25 08:57 | XR ---
EXAMINATION TYPE: XR chest 1V portable DATE OF EXAM: 08/25/2021 COMPARISON: X-ray dated 08/24/2021 HISTORY: Tube placement TECHNIQUE: Single frontal view of the chest is obtained. FINDINGS: Good position of the endotracheal tube, NG tube and left subclavian line. Less prominent infiltration in the left lower lung zone. Unchanged remainder of the lungs, cardiomediastinal silhouette and bony thoracic cage. IMPRESSION: As above.
[2021-08-25] MEDS ORDERED: FUROSEMIDE 10 MG/ML 4 ML VIAL IV STA (09:10)
--- NOTE | 2021-08-25 09:16 | P.PN ---
Subjective Progress Note Date: 08/25/21 71-year-old male patient with known history of severe end-stage COPD, with a baseline FEV1 of 0.67 L or 25% predicted as November 2020 PFT, on home oxygen patient usually wears 3 L of oxygen on a regular basis, ex-smoker, chronic dyspnea, hypertension, hyperlipidemia, osteoarthritis, cachexia, chronic nonhealing ulcers involving bilateral feet. Patient was recently required hospitalization in the last several weeks at the [facility] when he required mechanical ventilator support. Patient follows with Dr. Hall in the pulmonary clinic. On 08/17/2021 patient presents to the emergency department from a correction because of weakness and fatigue. Patient was also complaining of some chest discomfort in the morning, and shortness of breath. Denied any recent fever or chills. No worsening cough wheezing or phlegm production. No hemoptysis. Chest x-ray showed small bilateral pleural effusions with minimal subsegmental atelectasis at the left base. EKG showed sinus rhythm, with minimal ST depression in inferior leads, and T-wave inversion in aVL and LVH. Laboratory evaluation showed elevated white count of 17.7, hemoglobin of 10.0, platelet count of 285, d-dimer was mildly elevated to 0.97, sodium is 144, potassium is 5.1, BUN of 32, creatinine 0.69, 2 sets of troponins were negative at 0.020, less than 0.012, pro-calcitonin level was elevated to 0.50, TSH was within normal limits, LFTs were within normal limits, plasma lactic acid was 1.3 urinalysis without sign of infection. CT angiogram of the chest showed no evidence of acute pulmonary embolism, and moderate emphysematous change with small size right greater than left pleural effusions. There was foc al scarring versus spiculated nodule in the posterior right upper lobe which is new from 2014 study with recommendation of follow-up PET scan. Patient is currently on 3 L of oxygen pulse ox is 99%, he is very short of breath at rest, but appears to be in no acute distress, he is able to answer some simple questions, but he does have conversational dyspnea as well. Afebrile, he is tachycardic, cardiology has been consulted for SVT. Patient is on amiodarone infusion at 1 mg/m for rate control, he is on empiric antibiotics and breathing treatments and IV steroids. The patient is seen today 08/19/2021 in follow-up on the selective care unit. Upon arrival the patient was quite obtunded and unarousable and breathing shallow. He was immediately transferred to the intensive care unit requiring emergent intubation and placed on the mechanical ventilator. Initial settings included assist control mode with a rate of 20, tidal volume 350, FiO2 100% and a PEEP of 5. Left subclavian triple-lumen catheter place. Right radial arterial line placed. Arterial blood gases revealed a PaO2 of 124, pCO2 of 65 and a pH of 7.19. His respiratory rate was increased to 28. PEEP increased to 8. Plans to titrate down the FiO2. White count 11.6. Hemoglobin 8.6. Platelets 256. Sodium 143. Potassium 4.9. Chloride 113. BUN 44. Creatinine 1.42. Glucose 134. AST 42. ALT 195. Albumin 2.8. He is currently sedated on propofol at 50 mcg/kg/m. To be given 1-2 L of fluid resuscitation. Chest x-ray reveals no evidence of pneumothorax, satisfactory positioning of the endotracheal and orogastric tubes. There is worsening left lung edema/infiltrates. Improved aeration of the right lung base. Augmentin discontinued. Initiated on Zosyn. Pro-calcitonin pending. Culture revealing no growth to date. He was initially in atrial fibrillation requiring amiodarone . He is continued on bronchodilators, IV Solu-Medrol. He remains in a positive balance. The patient is seen today 08/20/2021 in follow-up in the intensive care unit. He remains intubated on mechanical ventilator. Still notices control mode with a rate of 28, attentive on 350, FiO2 40% and a PEEP of 8. Morning blood gases revealed a PaO2 of 113, pCO2 42, pH 7.32. He remains sedated on propofol at 75 mcg/kg/m. He has normal saline running at 100 ML's per hour. He is being nourished with vital HPI at 20 ML's per hour with a goal of 36. He is on antibiotics in the form of Zosyn. He is continued on DuoNeb inhalations, Pulmicort and Perforomist inhalations, IV Solu-Medrol. Chest x-ray continues to show mildly improved aeration in the left lung with persistent multifocal airspace opacities. Small bilateral effusions left greater than right. Evidence of COPD. Endotracheal, nasogastric tubes and left central venous catheter all in appropriate position. Blood culture reveals no growth to date. Sputum cultures pending. White count 8.3. Hemoglobin 7.1. Platelets 188. Sodium 143. Potassium 4.8. Chloride 116. Bicarb 21. BUN 44. Creatinine 1.44. Glucose 156. Currently in a +2.5 L. Currently in sinus rhythm. He remains on oral amiodarone. Lovenox for DVT prophylaxis. The patient is seen today 08/21/2021 in follow-up in the intensive care unit. He remains intubated on mechanical ventilator. Currently an assist-control mode. Rate of 28, tidal volume 350, FiO2 35% and a PEEP of 8. Morning blood gases revealed a PaO2 of 108, pCO2 42 and a pH of 7.31. He remains sedated on propofol at 75 mcg/kg/m. He has normal saline at 100 ML's per hour. He is being nourished with vital HPI at 36 ML's per hour. Chest x-ray can continues to show some improvement in the left lower lung. He remains on Zosyn. Endotracheal tube to be advanced 2 cm. Pro-calcitonin was 0.41. Blood culture reveals no growth. Sputum culture pending. White count 6.6. Hemoglobin 7.5. Platelets 163. Sodium 142. Potassium 4.2. Bicarb 21. BUN 39. Creatinine 1.26. Glucose 202. He is currently in a +3.2 L balance. He remains on DuoNeb inhalations, Pulmicort and Perforomist inhalations, IV Solu-Medrol. Antibiotics in the form of Zosyn. Lovenox for DVT prophylaxis. He remains hemodynamically stable. 08/22/2021, the patient is being seen for a follow-up. As mentioned, a 71-year-old male patient with advanced COPD with an FEV1 of 0.67 L benefit 1 of around 25% of predicted, with known history of chronic hypoxic respiratory failure maintained on oxygen at 3 L and currently the patient intubated on a mechanical ventilator. He is on propofol running at [place] micrograms per kilogram per minute. The patient is an assist-control mode of mechanical ventilation at the rate of 28 with a tidal volume of 350 and FiO2 of 30% with a PEEP of 8. Peak airway pressure is around 26-30. The patient has an auto PEEP which is in the order of 3 cm of water. The blood gases from today shows a pH of 7.30 with a pCO2 of 40 and pO2 of 116. His serum bicarbonate is at 20, and the patient could have been potentially a CO2 retainer with chronic metabolic alkalosis and this can be relative acidosis. The rest of the blood work shows a sodium level of 146, potassium of 3.7, BUN of 38 with a creatinine of 0.9. The white cell count is at 9 with a hemoglobin of 7.2. The patient is currently covered empirically with IV Zosyn. The chest x-ray from today is showing adequate positioning of the ET tube. The patient has bilateral lower lobe small pleural effusions. No major interval change compared to yesterday. He remains on DuoNeb nebulized treatments around the clock. Remains on IV Solu-Medrol and remains on IV Zosyn. The pro-calcitonin level was at 0.631 at a time of admission. Lactic acid level was nonelevated the time of admission. The patient has a flutter rhythm and currently is on oral amiodarone. He is also on anticoagulation with Lovenox 50 mg subcu every 12 hours under the recommendations of cardiology. Note that the patient also has chronic once and the wounds are multiple involving the right forearm where he is a skin tear, right calf ulcer, right willis, left thigh, left foot and left elbow and he also has a sacral wound stage II. None of these wounds are draining. The one on his right willis is covered with a rather thick scab which is extending in the area under his knee to the mid the patient is also on goal enteral feeding and the pa tient is currently on vital high protein right running at the rate of 36. 08/23 2021, the patient remains intubated on a mechanical ventilator. This morning, he remains on propofol running at 60 mcg/kg per minute. The patient is quite sensitive a mechanical ventilator. He remains on assist control mode at the rate of 40 with a tidal volume of 325 with an FiO2 of 30% and a PEEP of 6. Peak airway pressures around 25. His I:E ratio is 1-6. No significant rest or secretions. Blood gases showed a pH of 7.32 with a pCO2 of 43 and pO2 of 92. The patient remains on assist control mode of mechanical ventilation, volume cycle. The chest x-ray is not showing any acute abnormalities. ET tube is in a good location. There is hyperinflation consistent with COPD. There is also increased haziness in lung bases bilaterally compared to yesterday chest x-ray, possibly some effusion/pulmonary vessel congestion.. Note that the patient remains on IV Zosyn. His pro-calcitonin level at the time of admission was 0.631. His lactic acid level was nonelevated. He remains in atrial flutter rhythm with a controlled rate. No major changes in his condition since yesterday. He is receiving enteral feeding for nutritional support and currently he is on [place] running good today shows 36. The patient is afebrile. The patient is hemodynamically stable. The patient is on no pressors for now. In terms of his cardiac status, the patient remains on oral amiodarone and Lopressor and the patient is also on Lovenox 50 mg subcu every 12 hours per cardiology as an anticoagulant. He does have multiple wounds throughout his lower extremity and upper extremity and the sacrum. He is extensively debilitated. His blood work from today showing a sodium level of 147, potassium of 4 Cardizem 121 with a BUN of 40 and a creatinine of 0.9. Blood sugar is 153. The white cell count is currently at 12.6 with a hemoglobin of 7.3 and a platelet count of 160s . Upon further inspection, the right leg wounds which has a large eschar is draining some purulent material and this needs to be further debrided. 08/24/2021, the patient remains on a mechanical ventilator. He received a sed at holiday yesterday. He went on for a total of 2.5 half hours. He open up his eyes and he was not following any commands and at that point, he was having some autonomic reactions and he was started back on sedation. This morning, he was on propofol at 50 mcg/kg per minute. He is in the process of getting another sedation holiday. He is off sedation for around half an hour. His opening up his eyes. His grimacing to painful stimulation. He is not following any commands. Does not move and is quite debilitated and extremely weak at this point in time. The patient remains on a mechanical ventilator on assist control mode at the rate of 14 with a tidal volume of 375 and FiO2 of 30% with a PEEP of 6. Peak airway pressures 27. Blood gases from today show a pH of 7.32 with a pCO2 of 44 and pO2 of 108. Chest x-ray from today is showing no significant interval change. ET tube remains in a good location. The patient has no evidence of any pneumothorax. There is hyperinflation regarding his underlying COPD. There is increased haziness in the lung bases bilaterally and a component of mild pulmonary vascular congestion. The tip of the orotracheal tube is around 3.5 cm above the josette. There is persistent patchy opacity in the left mid and lower lung hawk slightly more prominent on today's evaluation. Meanwhile, the patient's has a white cell count of 14.8. Hemoglobin is at 7.4. He had is a 41 with a creatinine of 0.8 and a sodium level of 142. He is afebrile for now. His pro-calcitonin level from 08/19/2021 was 0.41. His fluid balance over the past 24 hours is +2.2 L and the patient is currently on D5W at the rate of 100 mL an hour and the patient is receiving enteral feeding for nutritional support and he is receiving vital high protein at the rate of 29 mL an hour. Note that the patient's that have a component of hyponatremia yesterday and for that reason he was started on free water supplements. Gen. surgery was also consulted on this patient regarding his wounds and the large eschar over the right lower extremity and this needs to be debrided a later stage. My concern is that the patient is extremely debilitated and he may not be a good candidate for weaning and he may not reach a successful weaning off the mechanical ventilator. I have were discussed this with his . 08/25/2021, the patient is currently off propofol and the patient is currently on Precedex and this is being gradually weaned off as the patient is quite comfortable on a mechanical ventilator while being on Precedex. Precedex is currently running at a dose of 0.3 mcg/kg per minute and the patient seems to be sections a mechanical ventilator. On today's evaluation, he opens up his eyes. He does not follow any commands. He is not checking at this point in time. Note that he is on a low-dose of Precedex. He is on a mechanical ventilator on assist control mode at the rate of 14 with a tidal volume of 375 and FiO2 of 40% with a PEEP of 6. The blood gas showed pH of 7.32 with a pCO2 of 48 and pO2 of 79. The peak airway pressures nonelevated and the patient has equal and symmetrical breath sounds. The repeat chest x-ray was done today that showed i mprovement in the left sided perihilar pulmonary infiltrates. His improvement in the volume status. The infiltrate on the left his left prominent specially in the left lower lobe. ET tube remains in a good location. No significant orotracheal secretions. The patient remains on IV Zosyn for now. The cultures are essentially negative other than josette bacterium in the sputum which is probably a colonizer. He is afebrile. He is hemodynamically stable. Affect is slightly hypertensive. He is receiving enteral feeding for nutritional support without any major difficulties and he is on vital high protein at the rate of 44 mL an hour. In terms of his fluid balance, I put him on D5 water to yesterday regarding his hypernatremia. He was also started on free water supplements. The sodium level today is at 142 and he is currently on 0.9 at 20 mL an hour and the free water has been discontinued and the patient was given a dose of Lasix yesterday. Overall fluid balance since yesterday has been in the order of +2.2 L. He is afebrile. Hemodynamically stable. Pro-calcitonin level was 0.41. Of concern is his profound weakness and the patient is still not following commands despite having some degree of alertness and he opens up his eyes and looks around without any purpose. He does grimace to painful stimulation and withdraws to painful stimulation in all 4 extremities. The large wound over the right lower extremity is covered with a dry eschar. The edges of the wounds are draining purulent material. he has multiple unstageable wounds on his buttocks on multiple areas. Objective - Vital Signs Vital signs: Vital Signs Temp 98.2 F 08/25/21 04:00 Pulse 72 08/25/21 07:00 Resp 15 08/25/21 07:00 BP 160/44 08/24/21 19:00 Pulse Ox 97 08/25/21 07:00 FiO2 40 08/25/21 04:55 Intake & Output 08/24/21 08/25/21 08/25/21 18:59 06:59 18:59 Intake Total 7976.101 0518.842 90 Output Total 2170 610 160 Balance -422.935 425.842 -70 Weight 62.8 kg 57.3 kg Intake: IV 636 276 46 Dextrose 5% in Water 1, 400 000 ml @ 100 mls/hr IV . Q10H GRACIE Rx#:[id number] Sodium Chloride 0.9% 1, 200 240 40 000 ml @ 20 mls/hr IV . Q24H GRACIE Rx#:[id number] pressure bag 36 36 6 Intake, IV Titration 374.065 127.842 Amount Dexmedetomidine/0.9% NaCl 27.842 (Pmx) 400 mcg In Empty Bag 1 bag @ 0.2 MCG/KG/HR 3.14 mls/hr IV .Q24H [facility]ACIE Rx#:[id number] Magnesium Sulfate-D5w Pmx 200 1 gm In Dextrose/Water 1 100ml.bag @ 100 mls/hr IVPB Q1H [facility] Rx#: [id number] Piperacillin-Tazobactam 3 100 100 .375 gm In Sodium Chloride 0.9% 100 ml @ 25 mls/hr IVPB Q8HR [facility] Rx# :[id number] propofoL 1,000 mg In 74.065 Empty Bag 1 bag @ 5 MCG/ KG/MIN 1.629 mls/hr IV . Q24H [facility]ACIE Rx#:[id number] Tube Feeding 497 572 44 Other 240 60 Output: Urine 2170 610 160 Other: Voiding Method Indwelling Catheter Indwelling Catheter # Bowel Movements 1 ABP, PAP, CO, CI - Last Documented Arterial Blood Pressure 163/45 - Exam GENERAL EXAM: Intubated, sedated cachectic-looking 71-year-old male. , The patient grimaces deep painful stimulation. Currently is on precedex. He remains intubated and orotracheal and orogastric tube are both in place. HEAD: Normocephalic/atraumatic. EYES: Normal reaction of pupils, equal size. Conjunctiva pink, sclera white. NOSE: Clear with pink turbinates. THROAT: No erythema or exudates. NECK: No masses, no JVD, no thyroid enlargement, no adenopathy. CHEST: No chest wall deformity. Symmetrical expansion. LUNGS: Equal air entry with diffuse crackles, diminished breath sounds CVS: Regular rate and rhythm, normal S1 and S2, no gallops, no murmurs, no rubs ABDOMEN: Soft, nontender. No hepatosplenomegaly, normal bowel sounds, no guarding or rigidity. EXTREMITIES: No clubbing, there is edema in his upper extremities bilaterally, no cyanosis, 2+ pulses and upper and lower extremities. MUSCULOSKELETAL: Muscle strength and tone normal. SPINE: No scoliosis or deformity SKIN: No rashes, the patient has an large-sized eschar over the right lower extremity wound edges draining some purulent material, he also has all kinds of wounds and skin tears on his heels, and forearms and legs. Nevertheless, the dominant one is his right lower extremity and his coccyx which is unstageable at this point in time. CENTRAL NERVOUS SYSTEM: Sedated. Tone is normal in all 4 extremities. PSYCHIATRIC: Unable to assess - Labs CBC & Chem 7: 08/25/21 04:30 08/25/21 04:30 Labs: Abnormal Lab Results - Last 24 Hours (Table) 08/24/21 08/24/21 08/24/21 Range/Units 11:18 17:43 23:30 WBC (3.8-10.6) k/uL RBC (4.30-5.90) m/uL Hgb (13.0-17.5) gm/dL Hct (39.0-53.0) % MCHC (31.0-37.0) g/dL RDW (11.5-15.5) % ABG pH (7.35-7.45) ABG pCO2 (35-45) mmHg ABG pO2 (83-108) mmHg ABG Total CO2 (19-24) mmol/L Chloride (98-107) mmol/L BUN (9-20) mg/dL Glucose (74-99) mg/dL POC Glucose (mg/dL) 172 H 177 H 141 H (75-99) mg/dL Calcium (8.4-10.2) mg/dL AST (17-59) U/L Total Protein (6.3-8.2) g/dL Albumin (3.5-5.0) g/dL 08/25/21 08/25/21 08/25/21 Range/Units 04:30 04:30 05:36 WBC 15.2 H (3.8-10.6) k/uL RBC 2.64 L (4.30-5.90) m/uL Hgb 7.8 L (13.0-17.5) gm/dL Hct 25.9 L (39.0-53.0) % MCHC 29.9 L (31.0-37.0) g/dL RDW 19.7 H (11.5-15.5) % ABG pH (7.35-7.45) ABG pCO2 (35-45) mmHg ABG pO2 (83-108) mmHg ABG Total CO2 (19-24) mmol/L Chloride 114 H (98-107) mmol/L BUN 49 H (9-20) mg/dL Glucose 180 H (74-99) mg/dL POC Glucose (mg/dL) 166 H (75-99) mg/dL Calcium 7.3 L (8.4-10.2) mg/dL AST 10 L (17-59) U/L Total Protein 4.3 L (6.3-8.2) g/dL Albumin 2.2 L (3.5-5.0) g/dL 08/25/21 Range/Units 06:14 WBC (3.8-10.6) k/uL RBC (4.30-5.90) m/uL Hgb (13.0-17.5) gm/dL Hct (39.0-53.0) % MCHC (31.0-37.0) g/dL RDW (11.5-15.5) % ABG pH 7.32 L (7.35-7.45) ABG pCO2 48 H (35-45) mmHg ABG pO2 79 L (83-108) mmHg ABG Total CO2 26 H (19-24) mmol/L Chloride (98-107) mmol/L BUN (9-20) mg/dL Glucose (74-99) mg/dL POC Glucose (mg/dL) (75-99) mg/dL Calcium (8.4-10.2) mg/dL AST (17-59) U/L Total Protein (6.3-8.2) g/dL Albumin (3.5-5.0) g/dL Microbiology - Last 24 Hours (Table) 08/18/21 06:04 Blood Culture - Final Blood No Growth after 144 hours Assessment and Plan Plan: 1 Acute exacerbation of COPD with acute hypoxemic respiratory failure requiring intubation and mechanical ventilation on 08/19/2021 chest x-ray showing bilateral lower lobe infiltrates/effusions, in addition to left perihilar pulmonary infiltrate. Patient is afebrile. The patient is hemodynamically stable. The chest x-ray from today shows interval improvement in the left-sided pulmonary infiltrate and the patient was given Lasix yesterday. The patient is currently on IV fluids at KVO. He remains on IV Zosyn. He is stable for now and we'll check his weaning parameters and we'll try to give him a spot has breathing trial. Nevertheless, based on his overall condition and comorbidities status, the patient is not ready for extubation. He is extremely weak. He has a sister secretions. I doubt he will be able to handle his secretions and it same time the patient has profound weakness in all 4 extremities. The same time is on low-dose of Precedex and is not following commands despite and opening up his eyes and showing some improvement in his level of alertness. 2 A flutter with RVR, currently in sinus rhythm, on oral amiodarone, Lovenox 3 History of severe end-stage COPD with baseline FEV1 of 25% of predicted 4 Chronic hypoxic respiratory failure related to the above 5 Former smoker 6 Nonhealing bilateral lower extremity ulcers 7 Elevated pro-calcitonin level, rule out possibility of infection, currently on Zosyn 8 Mildly elevated d-dimer, with no CT evidence of pulmonary embolism 9 Focal scarring versus spiculated nodule in the right upper lobe, will need outpatient follow-up, and possible PET scan 10 Chronic cachexia 11 Hypertension 12 Hyperlipidemia 13 Hypothyroidism 14 Osteoarthritis 15 hyperchloremic hypernatremia, mild, improved with free water supplements 15 multiple wounds with a large eschar over the right lower extremity and the patient has very stages of skin wounds throughout his body in addition to skin tears and a coccygeal wound , unstageable Plan: Wean off Precedex Check weaning parameters Give a trial with a pressure support of 5 with a PEEP of 5 Obtain a blood gas in 1 hour Not super excited for extubation for the above-mentioned reasons. I think the patient may extubate for short period of time yet subsequently will fail because of his extensive comorbidities and inability to have a respiratory secretions. Furthermore, he will need further surgical debridement and operating room and he may need on and off respiratory support. Ventilator. As such, I'm not going to extubate the patient unless I established goal of treatment with the surgeon and with the family. For now, he remains on a full CODE STATUS. I would recommend at least a tracheostomy tube insertion if the family insists on proceeding with care to its full extent. Given a dose of Lasix 40 mg IV push Keep the IV fluids at KVO Remains on Zosyn, DuoNeb inhalations Continue Pulmicort and Perforomist inhalations, IV Solu-Medrol Overall prognosis remains quite guarded Continue enteral feeding for nutritional support Continue thyroid hormone replacement Continue amiodarone continue Lovenox Condition is critical. General surgery for wound debridement Critically care evaluation was done and more than 30 minutes. Time with Patient: Greater than 30
[2021-08-25] MEDS: PIPERACILLIN-TAZOBACTAM 3.375 GM in SODIUM CHLORIDE 0.9% 100 ML IVPB SCH ×3 (09:30→23:34)
[2021-08-25] MEDS: FAMOTIDINE 20 MG TAB PO SCH (09:30)
[2021-08-25] MEDS: amLODIPine 10 MG TAB PO SCH (09:31)
[2021-08-25] MEDS: ENOXAPARIN 60 MG/0.6 ML SYRINGE SQ SCH ×2 (09:31→20:18)
[2021-08-25] MEDS: METOPROLOL TARTRATE 50 MG TAB PO SCH ×2 (09:31→20:18)
[2021-08-25] MEDS: AMIODARONE 200 MG TAB PO SCH ×2 (09:31→20:18)
[2021-08-25] MEDS: CHLORHEXIDINE GLUCONATE 15 ML CUP MUCOUS MEM SCH ×2 (09:32→20:18)
[2021-08-25 10:22] LABS: ABG Base Excess -0.2 mmol/L; ABG HCO3 26 mmol/L (21-25); ABG Oxygen Saturation 97.9 % (94-97); ABG PCO2 48 mmHg (35-45); ABG PH 7.33 (7.35-7.45); ABG PO2 91 mmHg (83-108); ABG TCO2 27 mmol/L (19-24)
[2021-08-25] MEDS: BUDESONIDE 1 MG/2 ML NEBU INHALATION SCH ×2 (10:29→20:57)
[2021-08-25] MEDS: FORMOTEROL FUMARATE 20 MCG/2 ML NEBU INHALATION SCH ×2 (10:29→20:57)
[2021-08-25 11:40] LABS: Glucose,Whole Blood 198 mg/dL (75-99)
--- NOTE | 2021-08-25 13:06 | P.PN ---
Subjective Progress Note Date: 08/25/21 CHIEF COMPLAINT: Right leg wound HISTORY OF PRESENT ILLNESS: Patient remains in the ICU and intubated. Patient currently undergoing CPAP trial. He is on Precedex for sedation. Surgical service is following in regards to his right leg pressure ulcer. Afebrile. WBC 15.2 hemoglobin 7.8 platelets 201. Per nurse patient also has wounds on the buttocks which she will evaluate later today. PHYSICAL EXAM: VITAL SIGNS: Reviewed. ABDOMEN: Soft. Nondistended. NEUROLOGIC: Intubated and sedated Extremities right lower leg pressure ulceration with large scab and minimal drainage ASSESSMENT: 1. Right lower leg pressure ulcer PLAN: -Patient scheduled for debridement of right lower leg ulcer tomorrow, 08/26/[address] corbin -Hold tube feedings after midnight -Hold a.m. dose of Lovenox -Continue ICU management -Continue supportive care Physician Artificial Teeth Inspector note has been reviewed by physician. Signing provider agrees with the documented findings, assessment, and plan of care. Objective - Vital Signs Vital signs: Vital Signs Temp 97.6 F 08/25/21 12:00 Pulse 86 08/25/21 12:52 Resp 22 08/25/21 12:52 BP 160/44 08/24/21 19:00 Pulse Ox 96 08/25/21 12:00 FiO2 30 08/25/21 12:42 Intake & Output 08/24/21 08/25/21 08/25/21 18:59 06:59 18:59 Intake Total 7952.922 0049.842 182 Output Total 2170 610 1160 Balance -422.935 425.842 -978 Weight 62.8 kg 57.3 kg Intake: IV 636 276 138 Dextrose 5% in Water 1, 400 000 ml @ 100 mls/hr IV . Q10H [facility] Rx#:[id number] Sodium Chloride 0.9% 1, 200 240 120 000 ml @ 20 mls/hr IV . Q24H [facility] Rx#:[id number] pressure bag 36 36 18 Intake, IV Titration 374.065 127.842 Amount Dexmedetomidine/0.9% NaCl 27.842 (Pmx) 400 mcg In Empty Bag 1 bag @ 0.2 MCG/KG/HR 3.14 mls/hr IV .Q24H [facility] Rx#:[id number] Magnesium Sulfate-D5w Pmx 200 1 gm In Dextrose/Water 1 100ml.bag @ 100 mls/hr IVPB Q1H [facility] Rx#: [id number] Piperacillin-Tazobactam 3 100 100 .375 gm In Sodium Chloride 0.9% 100 ml @ 25 mls/hr IVPB Q8HR [facility] Rx# :[id number] propofoL 1,000 mg In 74.065 Empty Bag 1 bag @ 5 MCG/ KG/MIN 1.629 mls/hr IV . Q24H [facility] Rx#:[id number] Tube Feeding 497 572 44 Other 240 60 Output: Urine 2170 610 1160 Other: Voiding Method Indwelling Catheter Indwelling Catheter Indwelling Catheter # Bowel Movements 1 ABP, PAP, CO, CI - Last Documented Arterial Blood Pressure 137/39 - Labs CBC & Chem 7: 08/25/21 04:30 08/25/21 04:30 Labs: Abnormal Lab Results - Last 24 Hours (Table) 08/24/21 08/24/21 08/25/21 Range/Units 17:43 23:30 04:30 WBC (3.8-10.6) k/uL RBC (4.30-5.90) m/uL Hgb (13.0-17.5) gm/dL Hct (39.0-53.0) % MCHC (31.0-37.0) g/dL RDW (11.5-15.5) % ABG pH (7.35-7.45) ABG pCO2 (35-45) mmHg ABG pO2 (83-108) mmHg ABG HCO3 (21-25) mmol/L ABG Total CO2 (19-24) mmol/L ABG O2 Saturation (94-97) % Chloride 114 H (98-107) mmol/L BUN 49 H (9-20) mg/dL Glucose 180 H (74-99) mg/dL POC Glucose (mg/dL) 177 H 141 H (75-99) mg/dL Calcium 7.3 L (8.4-10.2) mg/dL AST 10 L (17-59) U/L Total Protein 4.3 L (6.3-8.2) g/dL Albumin 2.2 L (3.5-5.0) g/dL 06/09/22 06/09/22 06/09/22 Range/Units 04:30 05:36 06:14 WBC 15.2 H (3.8-10.6) k/uL RBC 2.64 L (4.30-5.90) m/uL Hgb 7.8 L (13.0-17.5) gm/dL Hct 25.9 L (39.0-53.0) % MCHC 29.9 L (31.0-37.0) g/dL RDW 19.7 H (11.5-15.5) % ABG pH 7.32 L (7.35-7.45) ABG pCO2 48 H (35-45) mmHg ABG pO2 79 L (83-108) mmHg ABG HCO3 (21-25) mmol/L ABG Total CO2 26 H (19-24) mmol/L ABG O2 Saturation (94-97) % Chloride (98-107) mmol/L BUN (9-20) mg/dL Glucose (74-99) mg/dL POC Glucose (mg/dL) 166 H (75-99) mg/dL Calcium (8.4-10.2) mg/dL AST (17-59) U/L Total Protein (6.3-8.2) g/dL Albumin (3.5-5.0) g/dL 22 08/25/21 Range/Units 10:15 11:37 WBC (3.8-10.6) k/uL RBC (4.30-5.90) m/uL Hgb (13.0-17.5) gm/dL Hct (39.0-53.0) % MCHC (31.0-37.0) g/dL RDW (11.5-15.5) % ABG pH 7.33 L (7.35-7.45) ABG pCO2 48 H (35-45) mmHg ABG pO2 (83-108) mmHg ABG HCO3 26 H (21-25) mmol/L ABG Total CO2 27 H (19-24) mmol/L ABG O2 Saturation 97.9 H (94-97) % Chloride (98-107) mmol/L BUN (9-20) mg/dL Glucose (74-99) mg/dL POC Glucose (mg/dL) 198 H (75-99) mg/dL Calcium (8.4-10.2) mg/dL AST (17-59) U/L Total Protein (6.3-8.2) g/dL Albumin (3.5-5.0) g/dL
--- NOTE | 2021-08-25 14:53 | P.PN ---
Subjective Progress Note Date: 08/25/21 This is a pleasant 71 years old male with past medical history of COPD, Hyperlipidemia, Hypertension, Osteoarthritis , Metabolic Encaphalopathy, Acute kidney failure with tubular necrosis, Cachexia, Chronic non-pressure ulcer of back, Rhabdomylosis was sent from [facility] with increased weakness and lethargy over the last 2-3days Patient is poor historian but as per staff with . his he has been a custodial for the last 1-2 months and his been confused. pt looks cachectic and very frail, he is oriented to time ,place and person , but has no denture, his voice is muffled because of that he is been complaining from dyspnea and chest pain which is mild in the middle nonradiating and associated with very little cough. He says his shortness of breath was worse over the last 1 day and a half. Denies any abdominal pain or vomiting or diarrhea but he has low appetite. He denies any choking or swallow problem but he has no denture so we'll check for swallow evaluation Patient looks tachypneic with bilateral chest with some limited air entry but no ricardo wheezing. Patient states that he quit smoking about 10 years ago, used to smoke for more than 10 years. No alcohol or illicit drugs. He has multiple pressure ulcers he has one large pressure ulcers on the right leg laterally with drying scab Or any dressing . Also has multiple pressure ulcers with black eschar on both heels and left foot. The surrounding skin looks intact with no redness or swelling. On admission he was slightly tachypneic on 20, afebrile and heart rate was 84 and blood pressure 141/64, however overnight his blood pressure dropped with systolic 90s to 100, currently his blood pressure 104/68, also became tachycardic with heart rate 04/17/2049. He was saturating 9920% on 2-3 L oxygen via nasal cannula. He is mildly hypothermic at 97.2 His WBC is elevated at 17.7. Hemoglobin is 10.0. Platelet count 258. INR 0.9. BUN is 32 and creatinine 0.9. Troponin is 0.02 and less than 0.01. Glucose was on the low side 57 on admission and currently is 201. Urinalysis showed 1+ protein with no evidence of infection. Patient started on steroids and got a breathing treatment, IV fluids and started on amiodarone drips and Lovenox in the emergency room. D-dimer was elevated, therefore CTA of the chest was done which showed negative for pulmonary embolism, emphysematous changes with small pleural effusion. Also there is focal scattered versus speculated nodule in the right upper lobe we ordered stat CT of the brain and CT of the chest to rule out pulmonary embolism given his hypotension, tachycardia and tachypnea with elevated d-dimer. Also with mild hypoxia suspected. However patient confused per staff when he came in and could not be started on heparin drip before we rule out intracranial bleed before CT of the brain is also ordered with CT of the chest. Both tests came back negative 08/19/2021 Patient today during morning rounds found obtunded and responsive and unarousable with impending respiratory failure and he was transferred to the intensive care unit he got intubated and placed on mechanical ventilation with pulmonary/critical care team following closely and held with and management. His WBCs 11.6, hemoglobin 8.6, creatinine 1.4. chest x-ray sewn bilateral worsening infiltrates especially in the lower zones mood versus worsening infection His continued counseling atrial 60 mg, antibiotic form of Zosyn and amiodarone drip for developing A. fib and RVR. High-dose tenderness on hold 08/20/2021 Patient remains in the ICU intubated and sedated, he still tachypneic with respiratory rate of 28, his PEEP of 8.0 today. His hemoglobin is 7.1, creatinine 1.4. Remains on IV Solu-Medrol and Zosyn. Also is on amiodarone drip, and normal saline at 100 mL per hour. He still has bilateral leg ulceration with dried surface. Ultrasound showing evidence of chronic left DVT, currently he is on Lovenox 50 mg twice daily 08/21/2021 patient remains in the ICU sedated and intubated with pulmonary/critical care team following him closely and help with vent management . He is still on high PEEP relatively at 8 and FiO2 of 35%. He is tachypneic and tachycardic WBC 6.6, hemoglobin 7.5, creatinine improvement 1.2, chest x-ray showing no change. He remains on Zosyn, IV Solu-Medrol and normal saline 08/22/2021 Patient continues to be in the MICU with multiple medical consultations following. Pulmonary intensivists following and patient is maintained on IV steroids, duonebs, and IV antibiotics and will continue. Patient continues on vent with an FI02 of 30% and peep being weaned somewhat from 8 to 6 today. Chest xray is similar to previous day with no real improvement. Patient is afebrile. Patient overall prognosis is extremely poor and guarded and code status to be addressed. Cardiology following as well and have increased the metoprolol and continues on amiodarone. 08/23/2021 Patient continues to be in the ICU on mechanical vent with an FI02 of 30% and p eep is 6. Patient on sedation with holidays being conducted. Not tolerating and no plan for extubation at this time. General surgery consulted for right willis ulcer that has a large scab over it and apparently now some purulent drainage is noted. Possible debridement of the wound and recommend obtaining cultures. Patient is afebrile and sodium is elevated and IV fluids being transitioned to D5 in Water. Recommend repeat labs. 08/24/2021 Patient continues to be closely monitored in the medical ICU and maintained on mechanical vent. Chest x-ray shows persistent patchy opacification the left mid and lower lung zone slightly more prominent today with no progressive right pulmonary consolidation and grossly stable pleural effusions and also incidental finding of NG tube that needs further advancing into the stomach. Patient is continued on enteral nutrition via NG. Patient remains on mechanical vent with an FiO2 of 30% and PEEP is 6. Patient also continues on D5 in water and sodium is 142 today with a potassium of 3.9, creatinine is 0.87. Hemoglobin is 7.4 and WBC is 14.8 which is on an upward trend. Patient is afebrile. Patient continues on breathing inhalational treatments along with IV steroids 60 every 6 and IV Zosyn and is sedated with propofol at this time. Patient is tentatively scheduled for debridement of the right willis today. 08/25/2021 Patient is seen in follow-up in the ICU with multiple medical consultations following. Patient continues on mechanical vent with an FiO2 of 30% and PEEP is 6. Patient is currently off sedation and on Precedex low-dose. Attempting CPAP trials per pulmonary. Contemplating possible tracheostomy family continues to wish for the patient to remain full code. Patient is high risk for remaining on mechanical ventilation given his extensive comorbidities. Per nursing staff patient was not following commands although on exam right are asked patient to nod head yes or no is having any pain and patient nodded had no. Will then look around the room and stare off at the coats. Patient is extremely cachectic and ill-appearing and lethargic. Pulmonary following along with general surgery and plan is for possible debridement of that right willis in the a.m. Chest x-ray shows less prominent infiltration the left lower lung zone and unchanged remainder of the lungs. Patient also continues on breathing inhalational loyda tments along with IV steroids and IV Zosyn. Recommend electrolyte replacement per protocol and were within normal limits today. WBC mildly elevated and trending upward at 15.2, hemoglobin is 7.8. Patient is afebrile. Review of systems: unable to obtain as patient is sedated and on mechanical shantel t. Active Medications Acetaminophen (Acetaminophen Tab 325 Mg Tab) 650 mg PO Q4H PRN PRN Reason: Pain or Fever > 100.5 Albuterol/Ipratropium (Ipratropium-Albuterol 3 Ml Neb) 3 ml INHALATION RT-Q4H PRN PRN Reason: Shortness Of Breath Or Wheezing Albuterol/Ipratropium (Ipratropium-Albuterol 3 Ml Neb) 3 ml INHALATION RT-Q4H [facility] Last Admin: 08/25/21 12:43 Dose: 3 ml Amiodarone HCl (Amiodarone 200 Mg Tab) 200 mg PO BID [facility] Last Admin: 08/25/21 09:31 Dose: 200 mg Amlodipine Besylate (Amlodipine 10 Mg Tab) 10 mg PO DAILY [facility] Last Admin: 08/25/21 09:31 Dose: 10 mg Budesonide (Budesonide 1 Mg/2 Ml Nebu) 1 mg INHALATION RT-BID [facility] Last Admin: 08/25/21 10:29 Dose: 1 mg Chlorhexidine Gluconate (Chlorhexidine Gluconate 15 Ml Cup) 15 ml MUCOUS MEM BID [facility] Last Admin: 08/25/21 09:32 Dose: 15 ml Enoxaparin Sodium (Enoxaparin 60 Mg/0.6 Ml Syringe) 50 mg SQ Q12HR [facility] Last Admin: 08/25/21 09:31 Dose: 50 mg Famotidine (Famotidine 20 Mg Tab) 20 mg PO DAILY [facility] Last Admin: 08/25/21 09:30 Dose: 20 mg Formoterol Fumarate (Formoterol Fumarate 20 Mcg/2 Ml Nebu) 20 mcg INHALATION RT-BID [facility] Last Admin: 08/25/21 10:29 Dose: 20 mcg Hydromorphone HCl (Hydromorphone 1 Mg/Ml 1 Ml Syringe) 1 mg IVP Q2HR PRN PRN Reason: Pain Last Admin: 08/25/21 06:17 Dose: 1 mg Piperacillin Sod/Tazobactam (Sod 3.375 gm/ Sodium Chloride) 100 mls @ 25 mls/hr IVPB Q8HR [facility]; Protocol Last Admin: 08/25/21 09:30 Dose: 25 mls/hr Sodium Chloride (Saline 0.9%) 1,000 mls @ 20 mls/hr IV .Q24H [facility] Last Admin: 08/24/21 10:48 Dose: 20 mls/hr Dexmedetomidine HCl 400 mcg/ (IV Solution) 100 mls @ 3.14 mls/hr IV .Q24H [facility]; Protocol Last Titration: 08/25/21 06:50 Dose: 0.3 mcg/kg/hr, 4.71 mls/hr Insulin Aspart (Insulin Aspart (Novolog) 100 Unit/Ml Vial) 0 unit SQ Q6HR [facility]; Protocol Last Admin: 08/25/21 11:53 Dose: 2 unit Levothyroxine Sodium (Levothyroxine 50 Mcg Tab) 50 mcg PO DAILY@0500 [facility] Last Admin: 08/25/21 05:42 Dose: 50 mcg Methylprednisolone Sodium Succinate (Methylprednisolone Sod Succi 125 Mg/2 Ml Vial) 60 mg IV Q6HR [facility] Last Admin: 08/25/21 11:53 Dose: 60 mg Metoprolol Tartrate (Metoprolol Tartrate 50 Mg Tab) 100 mg PO BID [facility] Last Admin: 08/25/21 09:31 Dose: 100 mg Miscellaneous Information (Magnesium Replacement Protocol 1 Each Misc) 1 each MISCELLANE DAILY PRN; Protocol PRN Reason: Per Protocol Miscellaneous Information (Potassium Replacement Protocol 1 Each Misc) 1 each MISCELLANE DAILY PRN; Protocol PRN Reason: Per Protocol Naloxone HCl (Naloxone 0.4 Mg/Ml 1 Ml Vial) 0.2 mg IV Q2M PRN PRN Reason: Opioid Reversal Tramadol HCl (Tramadol 50 Mg Tab) 50 mg PO Q6H PRN PRN Reason: Pain Last Admin: 08/25/21 00:07 Dose: 50 mg Physical Exam: GENERAL: The patient is intubated and mildly sedated with Precedex, off propofol HEENT: Pupils are round and equally reacting to light. EOMI. No scleral icterus. No conjunctival pallor. Normocephalic, atraumatic. No pharyngeal erythema. No thyromegaly. CARDIOVASCULAR: S1 and S2 present. No murmurs, rubs, or gallops. PULMONARY: Decreased air entry with scattered wheezing and bilateral crepitation ABDOMEN: Soft, nontender, nondistended, normoactive bowel sounds. No palpable organomegaly. MUSCULOSKELETAL: No joint swelling or deformity. EXTREMITIES: No cyanosis, clubbing, or pedal edema. Multiple bilateral leg ulcers including both heels and right lateral willis with large scabbing noted over entire surface of the wound. No surrounding redness or erythema noted although there is now some purulent drainage noted from the willis. No evidence of overt surrounding cellulitis NEUROLOGICAL: Gross neurological examination did not reveal any focal deficits. Unable to assess as patient continues to be extremely lethargic and not followin g all commands although asked patient to nod yes or no if in pain and patient nodded no twice on 2 separate occasions of asking this SKIN: No rashes. no petechiae. Assessment: Acute hypoxic respiratory failure requiring intubation and mechanical ventilation COPD with exacerbation Multiple pressure ulcers with suspected infection Aflutter with RVR, currently rate controlled Moderate calorie malnutrition with a BMI of 21.1 multiple leg wounds focal scar versus speculated nodule in the right upper lobe, will need outpatient PET scan History of hypertension, currently he is hypotensive Hyperlipidemia Dehydration Chronic altered mental status with some elements of acute related to metabolic encephalopathy. Possible dementia History of osteoarthritis History of chronic nonpressure ulcer of the back DVT prophylaxis: Subcutaneous Lovenox GI Prophylaxis: Pepcid Full code Plan: Recommend continue on antibiotics and infectious disease is following. General surgery following and plan is for debridement of the right willis tomorrow on 08/26/2021 and will await cultures Recommend continue on IV steroids along with breathing inhalational treatments. Patient is continued on mechanical vent with an FiO2 of 30% and PEEP is 6 and off propofol on low-dose Precedex Recommend continue on D5 in water and follow-up with recommended labs Recommend follow-up chest x-ray in the morning Pulmonary and cardiology following Overall Prognosis is extremely poor and guarded CODE STATUS Full code per per staff, needs to be addressed again given patient's complexity of medical conditions and multiple comorbidities. possible discussion of PEG and trach placement in the near future The impression and plan of care has been dictated by Lucy Reyes, Nurse Practitioner as directed. Dr. Bharat MD I have performed a history and examination and MDM of this patient, discussed th e same with the dictator, and agree with the dictator's assessment and plan as written ,documented as a scribe. Based on total visit time, I have performed more than 50% of the visit. Objective - Vital Signs Vital signs: Vital Signs Temp 98.2 F 08/25/21 04:00 Pulse 72 08/25/21 07:00 Resp 15 08/25/21 07:00 BP 160/44 08/24/21 19:00 Pulse Ox 97 08/25/21 07:00 FiO2 40 08/25/21 04:55 Intake & Output 08/24/21 08/25/21 08/25/21 18:59 06:59 18:59 Intake Total 5060.959 2100.842 90 Output Total 2170 610 160 Balance -422.935 425.842 -70 Weight 62.8 kg 57.3 kg Intake: IV 636 276 46 Dextrose 5% in Water 1, 400 000 ml @ 100 mls/hr IV . Q10H [facility] Rx#:[id number] Sodium Chloride 0.9% 1, 200 240 40 000 ml @ 20 mls/hr IV . Q24H [facility] Rx#:[id number] pressure bag 36 36 6 Intake, IV Titration 374.065 127.842 Amount Dexmedetomidine/0.9% NaCl 27.842 (Pmx) 400 mcg In Empty Bag 1 bag @ 0.2 MCG/KG/HR 3.14 mls/hr IV .Q24H [facility] Rx#:[id number] Magnesium Sulfate-D5w Pmx 200 1 gm In Dextrose/Water 1 100ml.bag @ 100 mls/hr IVPB Q1H [facility] Rx#: [id number] Piperacillin-Tazobactam 3 100 100 .375 gm In Sodium Chloride 0.9% 100 ml @ 25 mls/hr IVPB Q8HR [facility] Rx# :[id number] propofoL 1,000 mg In 74.065 Empty Bag 1 bag @ 5 MCG/ KG/MIN 1.629 mls/hr IV . Q24H [facility] Rx#:[id number] Tube Feeding 497 572 44 Other 240 60 Output: Urine 2170 610 160 Other: Voiding Method Indwelling Catheter Indwelling Catheter # Bowel Movements 1 ABP, PAP, CO, CI - Last Documented Arterial Blood Pressure 163/45 - Labs CBC & Chem 7: 08/25/21 04:30 08/25/21 04:30 Labs: Abnormal Lab Results - Last 24 Hours (Table) 08/24/21 08/24/21 08/24/21 Range/Units 11:18 17:43 23:30 WBC (3.8-10.6) k/uL RBC (4.30-5.90) m/uL Hgb (13.0-17.5) gm/dL Hct (39.0-53.0) % MCHC (31.0-37.0) g/dL RDW (11.5-15.5) % ABG pH (7.35-7.45) ABG pCO2 (35-45) mmHg ABG pO2 (83-108) mmHg ABG Total CO2 (19-24) mmol/L Chloride (98-107) mmol/L BUN (9-20) mg/dL Glucose (74-99) mg/dL POC Glucose (mg/dL) 172 H 177 H 141 H (75-99) mg/dL Calcium (8.4-10.2) mg/dL AST (17-59) U/L Total Protein (6.3-8.2) g/dL Albumin (3.5-5.0) g/dL 08/25/21 08/25/21 08/25/21 Range/Units 04:30 04:30 05:36 WBC 15.2 H (3.8-10.6) k/uL RBC 2.64 L (4.30-5.90) m/uL Hgb 7.8 L (13.0-17.5) gm/dL Hct 25.9 L (39.0-53.0) % MCHC 29.9 L (31.0-37.0) g/dL RDW 19.7 H (11.5-15.5) % ABG pH (7.35-7.45) ABG pCO2 (35-45) mmHg ABG pO2 (83-108) mmHg ABG Total CO2 (19-24) mmol/L Chloride 114 H (98-107) mmol/L BUN 49 H (9-20) mg/dL Glucose 180 H (74-99) mg/dL POC Glucose (mg/dL) 166 H (75-99) mg/dL Calcium 7.3 L (8.4-10.2) mg/dL AST 10 L (17-59) U/L Total Protein 4.3 L (6.3-8.2) g/dL Albumin 2.2 L (3.5-5.0) g/dL 08/25/21 Range/Units 06:14 WBC (3.8-10.6) k/uL RBC (4.30-5.90) m/uL Hgb (13.0-17.5) gm/dL Hct (39.0-53.0) % MCHC (31.0-37.0) g/dL RDW (11.5-15.5) % ABG pH 7.32 L (7.35-7.45) ABG pCO2 48 H (35-45) mmHg ABG pO2 79 L (83-108) mmHg ABG Total CO2 26 H (19-24) mmol/L Chloride (98-107) mmol/L BUN (9-20) mg/dL Glucose (74-99) mg/dL POC Glucose (mg/dL) (75-99) mg/dL Calcium (8.4-10.2) mg/dL AST (17-59) U/L Total Protein (6.3-8.2) g/dL Albumin (3.5-5.0) g/dL Microbiology - Last 24 Hours (Table) 08/18/21 06:04 Blood Culture - Final Blood No Growth after 144 hours
[2021-08-25 17:57] LABS: Glucose,Whole Blood 180 mg/dL (75-99)
[2021-08-25] MEDS: SODIUM CHLORIDE 0.9% 1,000 ML IV SCH (20:19)
[2021-08-25] MEDS: DEXMEDETOMIDINE/0.9% NACL(PMX) 400 MCG in EMPTY BAG 1 BAG IV SCH (21:02)
--- NOTE | 2021-08-25 22:38 | P.PN ---
Subjective Progress Note Date: 08/24/21 Principal diagnosis: Possible aspiration pneumonia and multiple pressure ulcers She is a 71-year-old male with a past medical history significant for end-stage COPD admitted to the hospital with weakness and some shortness of breath patient did have worsening of his respiratory status requiring intubation and admission to the ICU, patient also have multiple pressure ulcers. On today's evaluation 08/24/2021, the patient remains to be afebrile, patient is hemodynamically stable not requiring pressor support, patient is stable at 30 % FiO2, no purulent secretion through the ET reported, patient is tolerating his tube feeds and no diarrhea reported by the nursing staff Objective - Vital Signs Vital signs: Vital Signs Temp 97.9 F 08/24/21 12:00 Pulse 115 H 08/24/21 14:00 Resp 22 08/24/21 14:00 BP 101/62 08/22/21 23:55 Pulse Ox 98 08/24/21 14:00 FiO2 30 08/24/21 12:00 Intake & Output 08/23/21 08/24/21 08/24/21 18:59 06:59 18:59 Intake Total 2044.785 2779.089 2172.065 Output Total 339 006 9389 Balance 1249.785 956.109 -485.935 Weight 62.8 kg 62.8 kg Intake: IV 360 1350 544 Dextrose 5% in Water 1, 1200 400 000 ml @ 100 mls/hr IV . Q10H [facility] Rx#:[id number] Piperacillin-Tazobactam 3 200 .375 gm In Sodium Chloride 0.9% 100 ml @ 25 mls/hr IVPB Q8HR [facility] Rx# :[id number] Sodium Chloride 0.9% 1, 160 120 120 000 ml @ 20 mls/hr IV . Q24H [facility] Rx#:[id number] pressure bag 30 24 Intake, IV Titration 995.785 161.109 174.065 Amount Dextrose 5% in Water 1, 800 000 ml @ 100 mls/hr IV . Q10H [facility] Rx#:[id number] Magnesium Sulfate-D5w Pmx 100 1 gm In Dextrose/Water 1 100ml.bag @ 100 mls/hr IVPB Q1H [facility] Rx#: [id number] propofoL 1,000 mg In 195.785 161.109 74.065 Empty Bag 1 bag @ 5 MCG/ KG/MIN 1.629 mls/hr IV . Q24H COUNTS INCLUDE 234 BEDS AT THE [facility] Rx#:[id number] Tube Feeding 539 180 321 Other 150 0 90 Output: Urine 817 665 4317 Other: Voiding Method Indwelling Catheter Indwelling Catheter Indwelling Catheter # Bowel Movements 1 1 ABP, PAP, CO, CI - Last Documented Arterial Blood Pressure 158/56 - Exam GENERAL DESCRIPTION: An elderly male intubated on the vent RESPIRATORY SYSTEM: Unlabored breathing , decreased breath sounds at bases HEART: S1 S2 regular rate and rhythm , ABDOMEN: Soft , no tenderness EXTREMITIES: No edema feet - Labs CBC & Chem 7: 08/25/21 04:30 08/25/21 04:30 Labs: Abnormal Lab Results - Last 24 Hours (Table) 08/23/21 08/23/21 08/24/21 Range/Units 18:02 23:52 04:30 WBC 14.8 H (3.8-10.6) k/uL RBC 2.48 L (4.30-5.90) m/uL Hgb 7.4 L (13.0-17.5) gm/dL Hct 24.5 L (39.0-53.0) % MCHC 30.1 L (31.0-37.0) g/dL RDW 20.1 H (11.5-15.5) % Neutrophils # 14.1 H (1.3-7.7) k/uL Lymphocytes # 0.3 L (1.0-4.8) k/uL ABG pH (7.35-7.45) ABG O2 Saturation (94-97) % Chloride (98-107) mmol/L BUN (9-20) mg/dL Glucose (74-99) mg/dL POC Glucose (mg/dL) 196 H 197 H (75-99) mg/dL Calcium (8.4-10.2) mg/dL 08/24/21 08/24/21 08/24/21 Range/Units 04:30 05:22 05:55 WBC (3.8-10.6) k/uL RBC (4.30-5.90) m/uL Hgb (13.0-17.5) gm/dL Hct (39.0-53.0) % MCHC (31.0-37.0) g/dL RDW (11.5-15.5) % Neutrophils # (1.3-7.7) k/uL Lymphocytes # (1.0-4.8) k/uL ABG pH 7.32 L (7.35-7.45) ABG O2 Saturation 98.6 H (94-97) % Chloride 118 H (98-107) mmol/L BUN 41 H (9-20) mg/dL Glucose 130 H (74-99) mg/dL POC Glucose (mg/dL) 144 H (75-99) mg/dL Calcium 7.2 L (8.4-10.2) mg/dL 08/24/21 Range/Units 11:18 WBC (3.8-10.6) k/uL RBC (4.30-5.90) m/uL Hgb (13.0-17.5) gm/dL Hct (39.0-53.0) % MCHC (31.0-37.0) g/dL RDW (11.5-15.5) % Neutrophils # (1.3-7.7) k/uL Lymphocytes # (1.0-4.8) k/uL ABG pH (7.35-7.45) ABG O2 Saturation (94-97) % Chloride (98-107) mmol/L BUN (9-20) mg/dL Glucose (74-99) mg/dL POC Glucose (mg/dL) 172 H (75-99) mg/dL Calcium (8.4-10.2) mg/dL Microbiology - Last 24 Hours (Table) 08/18/21 06:04 Blood Culture - Final Blood No Growth after 144 hours Assessment and Plan (1) Pneumonia Current Visit: Yes Status: Acute Code(s): J18.9 - PNEUMONIA, UNSPECIFIED ORGANISM SNOMED Code(s): 886904791 Plan: 1patient presented to hospital with increasing shortness of breath could be related to her underlying cardiac etiology, patient subsequently did have worsening of his respiratory status requiring intubation and concern for possible aspiration. 2sputum culture has been obtained which are negative so far 3patient to continue local wound care with Medihoney to the left thigh wound with a slough rest of the wound with a dry necrotic area to keep them dry and of the pressure. 4-patient respiratory status with no worsening and will continue with the Zosyn monitor clinical course closelyd Time with Patient: Less than 30
--- NOTE | 2021-08-25 22:39 | P.PN ---
Subjective Progress Note Date: 08/25/21 Principal diagnosis: Possible aspiration pneumonia and multiple pressure ulcers She is a 71-year-old male with a past medical history significant for end-stage COPD admitted to the hospital with weakness and some shortness of breath patient did have worsening of his respiratory status requiring intubation and admission to the ICU, patient also have multiple pressure ulcers. On today's evaluation 08/25/2021, the patient continues to be afebrile, patient is hemodynamically stable not requiring pressor support, patient is stable at 30 % FiO2, no purulent secretion through the ET or diarrhea reported by the nursing staff Objective - Vital Signs Vital signs: Vital Signs Temp 97.6 F 08/25/21 12:00 Pulse 68 08/25/21 13:02 Resp 18 08/25/21 13:02 BP 160/44 08/24/21 19:00 Pulse Ox 96 08/25/21 12:00 FiO2 30 08/25/21 12:42 Intake & Output 08/24/21 08/25/21 08/25/21 18:59 06:59 18:59 Intake Total 4265.096 4602.842 182 Output Total 2170 610 1160 Balance -422.935 425.842 -978 Weight 62.8 kg 57.3 kg Intake: IV 636 276 138 Dextrose 5% in Water 1, 400 000 ml @ 100 mls/hr IV . Q10H [facility] Rx#:[id number] Sodium Chloride 0.9% 1, 200 240 120 000 ml @ 20 mls/hr IV . Q24H [facility] Rx#:[id number] pressure bag 36 36 18 Intake, IV Titration 374.065 127.842 Amount Dexmedetomidine/0.9% NaCl 27.842 (Pmx) 400 mcg In Empty Bag 1 bag @ 0.2 MCG/KG/HR 3.14 mls/hr IV .Q24H [facility] Rx#:[id number] Magnesium Sulfate-D5w Pmx 200 1 gm In Dextrose/Water 1 100ml.bag @ 100 mls/hr IVPB Q1H [facility] Rx#: [id number] Piperacillin-Tazobactam 3 100 100 .375 gm In Sodium Chloride 0.9% 100 ml @ 25 mls/hr IVPB Q8HR [facility] Rx# :[id number] propofoL 1,000 mg In 74.065 Empty Bag 1 bag @ 5 MCG/ KG/MIN 1.629 mls/hr IV . Q24H [facility] Rx#:[id number] Tube Feeding 497 572 44 Other 240 60 Output: Urine 2170 610 1160 Other: Voiding Method Indwelling Catheter Indwelling Catheter Indwelling Catheter # Bowel Movements 1 ABP, PAP, CO, CI - Last Documented Arterial Blood Pressure 137/39 - Exam GENERAL DESCRIPTION: An elderly male intubated on the vent RESPIRATORY SYSTEM: Unlabored breathing , decreased breath sounds at bases HEART: S1 S2 regular rate and rhythm , ABDOMEN: Soft , no tenderness EXTREMITIES: No edema feet - Labs CBC & Chem 7: 08/25/21 04:30 08/25/21 04:30 Labs: Abnormal Lab Results - Last 24 Hours (Table) 08/24/21 08/24/21 08/25/21 Range/Units 17:43 23:30 04:30 WBC (3.8-10.6) k/uL RBC (4.30-5.90) m/uL Hgb (13.0-17.5) gm/dL Hct (39.0-53.0) % MCHC (31.0-37.0) g/dL RDW (11.5-15.5) % ABG pH (7.35-7.45) ABG pCO2 (35-45) mmHg ABG pO2 (83-108) mmHg ABG HCO3 (21-25) mmol/L ABG Total CO2 (19-24) mmol/L ABG O2 Saturation (94-97) % Chloride 114 H (98-107) mmol/L BUN 49 H (9-20) mg/dL Glucose 180 H (74-99) mg/dL POC Glucose (mg/dL) 177 H 141 H (75-99) mg/dL Calcium 7.3 L (8.4-10.2) mg/dL AST 10 L (17-59) U/L Total Protein 4.3 L (6.3-8.2) g/dL Albumin 2.2 L (3.5-5.0) g/dL 08/25/21 08/25/21 08/25/21 Range/Units 04:30 05:36 06:14 WBC 15.2 H (3.8-10.6) k/uL RBC 2.64 L (4.30-5.90) m/uL Hgb 7.8 L (13.0-17.5) gm/dL Hct 25.9 L (39.0-53.0) % MCHC 29.9 L (31.0-37.0) g/dL RDW 19.7 H (11.5-15.5) % ABG pH 7.32 L (7.35-7.45) ABG pCO2 48 H (35-45) mmHg ABG pO2 79 L (83-108) mmHg ABG HCO3 (21-25) mmol/L ABG Total CO2 26 H (19-24) mmol/L ABG O2 Saturation (94-97) % Chloride (98-107) mmol/L BUN (9-20) mg/dL Glucose (74-99) mg/dL POC Glucose (mg/dL) 166 H (75-99) mg/dL Calcium (8.4-10.2) mg/dL AST (17-59) U/L Total Protein (6.3-8.2) g/dL Albumin (3.5-5.0) g/dL 08/25/21/12/08 Range/Units 10:15 11:37 WBC (3.8-10.6) k/uL RBC (4.30-5.90) m/uL Hgb (13.0-17.5) gm/dL Hct (39.0-53.0) % MCHC (31.0-37.0) g/dL RDW (11.5-15.5) % ABG pH 7.33 L (7.35-7.45) ABG pCO2 48 H (35-45) mmHg ABG pO2 (83-108) mmHg ABG HCO3 26 H (21-25) mmol/L ABG Total CO2 27 H (19-24) mmol/L ABG O2 Saturation 97.9 H (94-97) % Chloride (98-107) mmol/L BUN (9-20) mg/dL Glucose (74-99) mg/dL POC Glucose (mg/dL) 198 H (75-99) mg/dL Calcium (8.4-10.2) mg/dL AST (17-59) U/L Total Protein (6.3-8.2) g/dL Albumin (3.5-5.0) g/dL Assessment and Plan (1) Pneumonia Current Visit: Yes Status: Acute Code(s): J18.9 - PNEUMONIA, UNSPECIFIED ORGANISM SNOMED Code(s): 495725791 Plan: 1patient presented to hospital with increasing shortness of breath could be related to her underlying cardiac etiology, patient subsequently did have worsening of his respiratory status requiring intubation and concern for possible aspiration. 2sputum culture has been obtained which are negative so far 3patient to continue local wound care with Medihoney to the left thigh wound with a slough rest of the wound with a dry necrotic area to keep them dry and of the pressure. 4-patient respiratory status with no worsening and will continue with the Zosyn monitor clinical course closely 5-patient with elevated white count and more likely steroid effect patient wound currently does not look infected and culture should be avoided, will recheck his inflammatory markers Time with Patient: Less than 30
[2021-08-25 23:28] LABS: Glucose,Whole Blood 165 mg/dL (75-99)
[2021-08-26] MEDS: HYDROmorphone 1 MG/ML 1 ML SYRINGE IVP PRN ×5 (01:51→22:55)
[2021-08-26] MEDS: IPRATROPIUM-ALBUTEROL 3 ML NEB INHALATION SCH ×6 (03:43→23:22)
[2021-08-26 04:59] LABS: Anisocytosis Moderate; Basophils % (A) 0 %; Eosinophils % (A) 0 %; HCT 24.2 % (39.0-53.0); HGB 7.5 gm/dL (13.0-17.5); Hypochromasia Moderate; Lymphocytes # (A) 0.3 k/uL (1.0-4.8); Lymphocytes % (A) 2 %; MCH 29.9 pg (25.0-35.0); MCHC 30.9 g/dL (31.0-37.0); MCV 96.9 fL (80.0-100.0); Macrocytosis Slight; Mean Platelet Volume 10.9; Monocytes # (A) 0.3 k/uL (0-1.0); Monocytes % (A) 2 %; Neutrophils # (A) 13.1 k/uL (1.3-7.7); Neutrophils % (A) 95 %; Platelet Count 211 k/uL (150-450); RDW 20.7 % (11.5-15.5); WBC 13.8 k/uL (3.8-10.6)
[2021-08-26 05:23] LABS: African American GFR (CKD) >90 (>60 ml/min/1.73 sqM); Anion Gap 0 mmol/L; Blood Urea Nitrogen 52 mg/dL (9-20); C Reactive Protein 0.5 mg/dL (<1.0); Calcium 7.5 mg/dL (8.4-10.2); Carbon Dioxide 28 mmol/L (22-30); Chloride 117 mmol/L (98-107); Glucose 102 mg/dL (74-99); Non-African American GFR(CKD) 84 (>60 ml/min/1.73 sqM); Potassium 4.1 mmol/L (3.5-5.1); Sodium 145 mmol/L (137-145)
[2021-08-26 05:51] LABS: Glucose,Whole Blood 154 mg/dL (75-99)
[2021-08-26 05:52] LABS: ABG Base Excess 1.8 mmol/L; ABG HCO3 27 mmol/L (21-25); ABG Oxygen Saturation 97.3 % (94-97); ABG PCO2 43 mmHg (35-45); ABG PO2 81 mmHg (83-108); ABG TCO2 28 mmol/L (19-24); Allen Test Performed? Yes
[2021-08-26] MEDS: methylPREDNISolone SOD SUCCI 125 MG/2 ML VIAL IV SCH ×3 (06:04→18:03)
[2021-08-26] MEDS: LEVOTHYROXINE 50 MCG TAB PO SCH (06:04)
[2021-08-26] MEDS: INSULIN ASPART (NovoLOG) 100 UNIT/ML VIAL SQ SCH ×3 (06:04→18:03)
[2021-08-26] MEDS: PIPERACILLIN-TAZOBACTAM 3.375 GM in SODIUM CHLORIDE 0.9% 100 ML IVPB SCH ×2 (08:33→16:16)
[2021-08-26] MEDS: amLODIPine 10 MG TAB PO SCH (08:34)
[2021-08-26] MEDS: AMIODARONE 200 MG TAB PO SCH ×2 (08:34→20:41)
[2021-08-26] MEDS: FAMOTIDINE 20 MG TAB PO SCH (08:34)
[2021-08-26] MEDS: METOPROLOL TARTRATE 50 MG TAB PO SCH ×2 (08:34→20:41)
[2021-08-26] MEDS: ENOXAPARIN 60 MG/0.6 ML SYRINGE SQ SCH ×2 (08:34→20:42)
[2021-08-26] MEDS: CHLORHEXIDINE GLUCONATE 15 ML CUP MUCOUS MEM SCH ×2 (08:34→20:41)
[2021-08-26] MEDS: FORMOTEROL FUMARATE 20 MCG/2 ML NEBU INHALATION SCH ×2 (09:26→19:20)
[2021-08-26] MEDS: BUDESONIDE 1 MG/2 ML NEBU INHALATION SCH ×2 (09:27→19:20)
[2021-08-26] MEDS: DEXMEDETOMIDINE/0.9% NACL(PMX) 400 MCG in EMPTY BAG 1 BAG IV SCH (10:21)
--- NOTE | 2021-08-26 10:57 | P.PN ---
Subjective Progress Note Date: 08/26/21 71-year-old male patient with known history of severe end-stage COPD, with a baseline FEV1 of 0.67 L or 25% predicted as November 2020 PFT, on home oxygen patient usually wears 3 L of oxygen on a regular basis, ex-smoker, chronic dyspnea, hypertension, hyperlipidemia, osteoarthritis, cachexia, chronic nonhealing ulcers involving bilateral feet. Patient was recently required hospitalization in the last several weeks at the [facility] when he required mechanical ventilator support. Patient follows with Dr. Hall in the pulmonary clinic. On 08/17/2021 patient presents to the emergency department from a senior care because of weakness and fatigue. Patient was also complaining of some chest discomfort in the morning, and shortness of breath. Denied any recent fever or chills. No worsening cough wheezing or phlegm production. No hemoptysis. Chest x-ray showed small bilateral pleural effusions with minimal subsegmental atelectasis at the left base. EKG showed sinus rhythm, with minimal ST depression in inferior leads, and T-wave inversion in aVL and LVH. Laboratory evaluation showed elevated white count of 17.7, hemoglobin of 10.0, platelet count of 285, d-dimer was mildly elevated to 0.97, sodium is 144, potassium is 5.1, BUN of 32, creatinine 0.69, 2 sets of troponins were negative at 0.020, less than 0.012, pro-calcitonin level was elevated to 0.50, TSH was within normal limits, LFTs were within normal limits, plasma lactic acid was 1.3 urinalysis without sign of infection. CT angiogram of the chest showed no evidence of acute pulmonary embolism, and moderate emphysematous change with small size right greater than left pleural effusions. There was foc al scarring versus spiculated nodule in the posterior right upper lobe which is new from 2014 study with recommendation of follow-up PET scan. Patient is currently on 3 L of oxygen pulse ox is 99%, he is very short of breath at rest, but appears to be in no acute distress, he is able to answer some simple questions, but he does have conversational dyspnea as well. Afebrile, he is tachycardic, cardiology has been consulted for SVT. Patient is on amiodarone infusion at 1 mg/m for rate control, he is on empiric antibiotics and breathing treatments and IV steroids. The patient is seen today 08/19/2021 in follow-up on the selective care unit. Upon arrival the patient was quite obtunded and unarousable and breathing shallow. He was immediately transferred to the intensive care unit requiring emergent intubation and placed on the mechanical ventilator. Initial settings included assist control mode with a rate of 20, tidal volume 350, FiO2 100% and a PEEP of 5. Left subclavian triple-lumen catheter place. Right radial arterial line placed. Arterial blood gases revealed a PaO2 of 124, pCO2 of 65 and a pH of 7.19. His respiratory rate was increased to 28. PEEP increased to 8. Plans to titrate down the FiO2. White count 11.6. Hemoglobin 8.6. Platelets 256. Sodium 143. Potassium 4.9. Chloride 113. BUN 44. Creatinine 1.42. Glucose 134. AST 42. ALT 195. Albumin 2.8. He is currently sedated on propofol at 50 mcg/kg/m. To be given 1-2 L of fluid resuscitation. Chest x-ray reveals no evidence of pneumothorax, satisfactory positioning of the endotracheal and orogastric tubes. There is worsening left lung edema/infiltrates. Improved aeration of the right lung base. Augmentin discontinued. Initiated on Zosyn. Pro-calcitonin pending. Culture revealing no growth to date. He was initially in atrial fibrillation requiring amiodarone . He is continued on bronchodilators, IV Solu-Medrol. He remains in a positive balance. The patient is seen today 08/20/2021 in follow-up in the intensive care unit. He remains intubated on mechanical ventilator. Still notices control mode with a rate of 28, attentive on 350, FiO2 40% and a PEEP of 8. Morning blood gases revealed a PaO2 of 113, pCO2 42, pH 7.32. He remains sedated on propofol at 75 mcg/kg/m. He has normal saline running at 100 ML's per hour. He is being nourished with vital HPI at 20 ML's per hour with a goal of 36. He is on antibiotics in the form of Zosyn. He is continued on DuoNeb inhalations, Pulmicort and Perforomist inhalations, IV Solu-Medrol. Chest x-ray continues to show mildly improved aeration in the left lung with persistent multifocal airspace opacities. Small bilateral effusions left greater than right. Evidence of COPD. Endotracheal, nasogastric tubes and left central venous catheter all in appropriate position. Blood culture reveals no growth to date. Sputum cultures pending. White count 8.3. Hemoglobin 7.1. Platelets 188. Sodium 143. Potassium 4.8. Chloride 116. Bicarb 21. BUN 44. Creatinine 1.44. Glucose 156. Currently in a +2.5 L. Currently in sinus rhythm. He remains on oral amiodarone. Lovenox for DVT prophylaxis. The patient is seen today 08/21/2021 in follow-up in the intensive care unit. He remains intubated on mechanical ventilator. Currently an assist-control mode. Rate of 28, tidal volume 350, FiO2 35% and a PEEP of 8. Morning blood gases revealed a PaO2 of 108, pCO2 42 and a pH of 7.31. He remains sedated on propofol at 75 mcg/kg/m. He has normal saline at 100 ML's per hour. He is being nourished with vital HPI at 36 ML's per hour. Chest x-ray can continues to show some improvement in the left lower lung. He remains on Zosyn. Endotracheal tube to be advanced 2 cm. Pro-calcitonin was 0.41. Blood culture reveals no growth. Sputum culture pending. White count 6.6. Hemoglobin 7.5. Platelets 163. Sodium 142. Potassium 4.2. Bicarb 21. BUN 39. Creatinine 1.26. Glucose 202. He is currently in a +3.2 L balance. He remains on DuoNeb inhalations, Pulmicort and Perforomist inhalations, IV Solu-Medrol. Antibiotics in the form of Zosyn. Lovenox for DVT prophylaxis. He remains hemodynamically stable. 08/22/2021, the patient is being seen for a follow-up. As mentioned, a 71-year-old male patient with advanced COPD with an FEV1 of 0.67 L benefit 1 of around 25% of predicted, with known history of chronic hypoxic respiratory failure maintained on oxygen at 3 L and currently the patient intubated on a mechanical ventilator. He is on propofol running at [place] micrograms per kilogram per minute. The patient is an assist-control mode of mechanical ventilation at the rate of 28 with a tidal volume of 350 and FiO2 of 30% with a PEEP of 8. Peak airway pressure is around 26-30. The patient has an auto PEEP which is in the order of 3 cm of water. The blood gases from today shows a pH of 7.30 with a pCO2 of 40 and pO2 of 116. His serum bicarbonate is at 20, and the patient could have been potentially a CO2 retainer with chronic metabolic alkalosis and this can be relative acidosis. The rest of the blood work shows a sodium level of 146, potassium of 3.7, BUN of 38 with a creatinine of 0.9. The white cell count is at 9 with a hemoglobin of 7.2. The patient is currently covered empirically with IV Zosyn. The chest x-ray from today is showing adequate positioning of the ET tube. The patient has bilateral lower lobe small pleural effusions. No major interval change compared to yesterday. He remains on DuoNeb nebulized treatments around the clock. Remains on IV Solu-Medrol and remains on IV Zosyn. The pro-calcitonin level was at 0.631 at a time of admission. Lactic acid level was nonelevated the time of admission. The patient has a flutter rhythm and currently is on oral amiodarone. He is also on anticoagulation with Lovenox 50 mg subcu every 12 hours under the recommendations of cardiology. Note that the patient also has chronic once and the wounds are multiple involving the right forearm where he is a skin tear, right calf ulcer, right willis, left thigh, left foot and left elbow and he also has a sacral wound stage II. None of these wounds are draining. The one on his right willis is covered with a rather thick scab which is extending in the area under his knee to the mid the patient is also on goal enteral feeding and the pa tient is currently on vital high protein right running at the rate of 36. 08/23 2021, the patient remains intubated on a mechanical ventilator. This morning, he remains on propofol running at 60 mcg/kg per minute. The patient is quite sensitive a mechanical ventilator. He remains on assist control mode at the rate of 40 with a tidal volume of 325 with an FiO2 of 30% and a PEEP of 6. Peak airway pressures around 25. His I:E ratio is 1-6. No significant rest or secretions. Blood gases showed a pH of 7.32 with a pCO2 of 43 and pO2 of 92. The patient remains on assist control mode of mechanical ventilation, volume cycle. The chest x-ray is not showing any acute abnormalities. ET tube is in a good location. There is hyperinflation consistent with COPD. There is also increased haziness in lung bases bilaterally compared to yesterday chest x-ray, possibly some effusion/pulmonary vessel congestion.. Note that the patient remains on IV Zosyn. His pro-calcitonin level at the time of admission was 0.631. His lactic acid level was nonelevated. He remains in atrial flutter rhythm with a controlled rate. No major changes in his condition since yesterday. He is receiving enteral feeding for nutritional support and currently he is on [place] running good today shows 36. The patient is afebrile. The patient is hemodynamically stable. The patient is on no pressors for now. In terms of his cardiac status, the patient remains on oral amiodarone and Lopressor and the patient is also on Lovenox 50 mg subcu every 12 hours per cardiology as an anticoagulant. He does have multiple wounds throughout his lower extremity and upper extremity and the sacrum. He is extensively debilitated. His blood work from today showing a sodium level of 147, potassium of 4 Cardizem 121 with a BUN of 40 and a creatinine of 0.9. Blood sugar is 153. The white cell count is currently at 12.6 with a hemoglobin of 7.3 and a platelet count of 160s . Upon further inspection, the right leg wounds which has a large eschar is draining some purulent material and this needs to be further debrided. 08/24/2021, the patient remains on a mechanical ventilator. He received a sed at holiday yesterday. He went on for a total of 2.5 half hours. He open up his eyes and he was not following any commands and at that point, he was having some autonomic reactions and he was started back on sedation. This morning, he was on propofol at 50 mcg/kg per minute. He is in the process of getting another sedation holiday. He is off sedation for around half an hour. His opening up his eyes. His grimacing to painful stimulation. He is not following any commands. Does not move and is quite debilitated and extremely weak at this point in time. The patient remains on a mechanical ventilator on assist control mode at the rate of 14 with a tidal volume of 375 and FiO2 of 30% with a PEEP of 6. Peak airway pressures 27. Blood gases from today show a pH of 7.32 with a pCO2 of 44 and pO2 of 108. Chest x-ray from today is showing no significant interval change. ET tube remains in a good location. The patient has no evidence of any pneumothorax. There is hyperinflation regarding his underlying COPD. There is increased haziness in the lung bases bilaterally and a component of mild pulmonary vascular congestion. The tip of the orotracheal tube is around 3.5 cm above the josette. There is persistent patchy opacity in the left mid and lower lung hawk slightly more prominent on today's evaluation. Meanwhile, the patient's has a white cell count of 14.8. Hemoglobin is at 7.4. He had is a 41 with a creatinine of 0.8 and a sodium level of 142. He is afebrile for now. His pro-calcitonin level from 08/19/2021 was 0.41. His fluid balance over the past 24 hours is +2.2 L and the patient is currently on D5W at the rate of 100 mL an hour and the patient is receiving enteral feeding for nutritional support and he is receiving vital high protein at the rate of 29 mL an hour. Note that the patient's that have a component of hyponatremia yesterday and for that reason he was started on free water supplements. Gen. surgery was also consulted on this patient regarding his wounds and the large eschar over the right lower extremity and this needs to be debrided a later stage. My concern is that the patient is extremely debilitated and he may not be a good candidate for weaning and he may not reach a successful weaning off the mechanical ventilator. I have were discussed this with his . 08/25/2021, the patient is currently off propofol and the patient is currently on Precedex and this is being gradually weaned off as the patient is quite comfortable on a mechanical ventilator while being on Precedex. Precedex is currently running at a dose of 0.3 mcg/kg per minute and the patient seems to be sections a mechanical ventilator. On today's evaluation, he opens up his eyes. He does not follow any commands. He is not checking at this point in time. Note that he is on a low-dose of Precedex. He is on a mechanical ventilator on assist control mode at the rate of 14 with a tidal volume of 375 and FiO2 of 40% with a PEEP of 6. The blood gas showed pH of 7.32 with a pCO2 of 48 and pO2 of 79. The peak airway pressures nonelevated and the patient has equal and symmetrical breath sounds. The repeat chest x-ray was done today that showed i mprovement in the left sided perihilar pulmonary infiltrates. His improvement in the volume status. The infiltrate on the left his left prominent specially in the left lower lobe. ET tube remains in a good location. No significant orotracheal secretions. The patient remains on IV Zosyn for now. The cultures are essentially negative other than josette bacterium in the sputum which is probably a colonizer. He is afebrile. He is hemodynamically stable. Affect is slightly hypertensive. He is receiving enteral feeding for nutritional support without any major difficulties and he is on vital high protein at the rate of 44 mL an hour. In terms of his fluid balance, I put him on D5 water to yesterday regarding his hypernatremia. He was also started on free water supplements. The sodium level today is at 142 and he is currently on 0.9 at 20 mL an hour and the free water has been discontinued and the patient was given a dose of Lasix yesterday. Overall fluid balance since yesterday has been in the order of +2.2 L. He is afebrile. Hemodynamically stable. Pro-calcitonin level was 0.41. Of concern is his profound weakness and the patient is still not following commands despite having some degree of alertness and he opens up his eyes and looks around without any purpose. He does grimace to painful stimulation and withdraws to painful stimulation in all 4 extremities. The large wound over the right lower extremity is covered with a dry eschar. The edges of the wounds are draining purulent material. he has multiple unstageable wounds on his buttocks on multiple areas. 08/26/2021, the patient is on Precedex which is running at a dose of 0.5 mcg/kg per minute. He is more arousable compared to yesterday. His tract in and he did may be use his hands to grab upon demand. His eyes are open. He follows no commands at this point in time. He is breathing comfortably on a mechanical ventilator. He is hemodynamically stable. Is an assist-control mode at the rat e of 14 with a tidal volume of 375 mL with an FiO2 of 30% and a PEEP of 6. The blood gases from today showed a pH of 7.39 with a pCO2 of 43 and pO2 of 80. The patient had no chest x-ray done today. His blood work shows a stable white cell count of 15.8 with a hemoglobin of 7.5 and a platelet count of 211. Sodium is at 145. Bicarb is a 28 with a BUN of 52 and a creatinine of 0.9. The overall fluid balance over the past 24 hours has been had it hours a negative fluid balance. The patient is afebrile. The patient is hemodynamically stable. The patient is on no pressors. The patient is receiving enteral feeding for nutritional support and the patient is currently on vital high protein at the rate of 44 mL an hour. As mentioned, the patient has multiple wounds largest being his right lower extremity and another unstageable wounds in his buttocks. We have not debrided wounds yet and the procedure was canceled upon the family's request. Furthermore, the family opted to change his CODE STATUS to DO NOT RESUSCITATE DO NOT INTUBATE. No other significant events overnight. His car diac rhythm is sinus. He remains on bronchodilators. He remains on steroids. He remains on an empiric antibiotic coverage with IV Zosyn. Objective - Vital Signs Vital signs: Vital Signs Temp 97.7 F 08/26/21 08:00 Pulse 59 L 08/26/21 10:00 Resp 25 H 08/26/21 10:00 BP 134/52 08/26/21 07:00 Pulse Ox 99 08/26/21 10:00 FiO2 30 08/26/21 09:07 Intake & Output 08/25/21 08/26/21 08/26/21 18:59 06:59 18:59 Intake Total 341 1112.679 404.803 Output Total 1755 810 170 Balance -1414 302.679 234.803 Weight 59.8 kg Intake: IV 253 299 69 Sodium Chloride 0.9% 1, 220 260 60 000 ml @ 20 mls/hr IV . Q24H [facility] Rx#:[id number] pressure bag 33 39 9 Intake, IV Titration 225.679 143.803 Amount Dexmedetomidine/0.9% NaCl 125.679 43.803 (Pmx) 400 mcg In Empty Bag 1 bag @ 0.2 MCG/KG/HR 3.14 mls/hr IV .Q24H [facility] Rx#:[id number] Piperacillin-Tazobactam 3 100 100 .375 gm In Sodium Chloride 0.9% 100 ml @ 25 mls/hr IVPB Q8HR [facility] Rx# :[id number] Tube Feeding 88 528 132 Other 60 60 Output: Urine 1755 810 170 Other: Voiding Method Indwelling Catheter Indwelling Catheter Indwelling Catheter # Bowel Movements 1 ABP, PAP, CO, CI - Last Documented Arterial Blood Pressure 172/45 - Exam GENERAL EXAM: Intubated, sedated cachectic-looking 71-year-old male. , The patient grimaces deep painful stimulation. Currently is on precedex. He re romain intubated and orotracheal and orogastric tube are both in place. HEAD: Normocephalic/atraumatic. EYES: Normal reaction of pupils, equal size. Conjunctiva pink, sclera white. NOSE: Clear with pink turbinates. THROAT: No erythema or exudates. NECK: No masses, no JVD, no thyroid enlargement, no adenopathy. CHEST: No chest wall deformity. Symmetrical expansion. LUNGS: Equal air entry with diffuse crackles, diminished breath sounds CVS: Regular rate and rhythm, normal S1 and S2, no gallops, no murmurs, no rubs ABDOMEN: Soft, nontender. No hepatosplenomegaly, normal bowel sounds, no guardi ng or rigidity. EXTREMITIES: No clubbing, there is edema in his upper extremities bilaterally, no cyanosis, 2+ pulses and upper and lower extremities. MUSCULOSKELETAL: Muscle strength and tone normal. SPINE: No scoliosis or deformity SKIN: No rashes, the patient has an large-sized eschar over the right lower extremity wound edges draining some purulent material, he also has all kinds of wounds and skin tears on his heels, and forearms and legs. Nevertheless, the dominant one is his right lower extremity and his coccyx which is unstageable at this point in time. CENTRAL NERVOUS SYSTEM: Sedated. Tone is normal in all 4 extremities. Opens up his eyes spontaneously and tracks. Does not follow commands. Pupils are equal and reactive to light. Grimaces to painful stimulation in all 4 extremities. Sharp PSYCHIATRIC: Unable to assess - Labs CBC & Chem 7: 08/26/21 04:05 08/26/21 04:05 Labs: Abnormal Lab Results - Last 24 Hours (Table) 08/25/21 08/25/21 08/25/21 Range/Units 11:37 17:55 23:26 WBC (3.8-10.6) k/uL RBC (4.30-5.90) m/uL Hgb (13.0-17.5) gm/dL Hct (39.0-53.0) % MCHC (31.0-37.0) g/dL RDW (11.5-15.5) % Neutrophils # (1.3-7.7) k/uL Lymphocytes # (1.0-4.8) k/uL ABG pO2 (83-108) mmHg ABG HCO3 (21-25) mmol/L ABG Total CO2 (19-24) mmol/L ABG O2 Saturation (94-97) % Chloride (98-107) mmol/L BUN (9-20) mg/dL Glucose (74-99) mg/dL POC Glucose (mg/dL) 198 H 180 H 165 H (75-99) mg/dL Calcium (8.4-10.2) mg/dL 08/26/21 08/26/21 08/26/21 Range/Units 04:05 04:05 05:48 WBC 13.8 H (3.8-10.6) k/uL RBC 2.50 L (4.30-5.90) m/uL Hgb 7.5 L (13.0-17.5) gm/dL Hct 24.2 L (39.0-53.0) % MCHC 30.9 L (31.0-37.0) g/dL RDW 20.7 H (11.5-15.5) % Neutrophils # 13.1 H (1.3-7.7) k/uL Lymphocytes # 0.3 L (1.0-4.8) k/uL ABG pO2 81 L (83-108) mmHg ABG HCO3 27 H (21-25) mmol/L ABG Total CO2 28 H (19-24) mmol/L ABG O2 Saturation 97.3 H (94-97) % Chloride 117 H (98-107) mmol/L BUN 52 H (9-20) mg/dL Glucose 102 H (74-99) mg/dL POC Glucose (mg/dL) (75-99) mg/dL Calcium 7.5 L (8.4-10.2) mg/dL 08/26/21 Range/Units 05:49 WBC (3.8-10.6) k/uL RBC (4.30-5.90) m/uL Hgb (13.0-17.5) gm/dL Hct (39.0-53.0) % MCHC (31.0-37.0) g/dL RDW (11.5-15.5) % Neutrophils # (1.3-7.7) k/uL Lymphocytes # (1.0-4.8) k/uL ABG pO2 (83-108) mmHg ABG HCO3 (21-25) mmol/L ABG Total CO2 (19-24) mmol/L ABG O2 Saturation (94-97) % Chloride (98-107) mmol/L BUN (9-20) mg/dL Glucose (74-99) mg/dL POC Glucose (mg/dL) 154 H (75-99) mg/dL Calcium (8.4-10.2) mg/dL Assessment and Plan Plan: 1 Acute exacerbation of COPD with acute hypoxemic respiratory failure requiring intubation and mechanical ventilation on 08/19/2021 chest x-ray showing b ilateral lower lobe infiltrates/effusions, in addition to left perihilar pulmonary infiltrate. Patient is afebrile. The patient is hemodynamically stable. The chest x-ray from today shows interval improvement in the left-sided pulmonary infiltrate and the patient was given Lasix yesterday. The patient is currently on IV fluids at O. He remains on IV Zosyn. He is stable for now and we'll check his weaning parameters and we'll try to give him a spot has breathing trial. Nevertheless, based on his overall condition and comorbidities status, the patient is not ready for extubation. He is extremely weak. The patient is extremely debilitated. There is been some limited improvement in his level of alertness while being on Precedex. On today's evaluation, check his weaning parameters and put the patient on a pressure support of 5 and a PEEP of 5 and with repeated blood has been one hour. I may potentially extubated the patient with the understanding that the patient is a DNR/DNI CODE STATUS and that'll be no reintubation if the patient fails. The patient's family was agreeable to that. 2 A flutter with RVR, currently in sinus rhythm, on oral amiodarone, Lovenox 3 History of severe end-stage COPD with baseline FEV1 of 25% of predicted 4 Chronic hypoxic respiratory failure related to the above 5 Former smoker 6 Nonhealing bilateral lower extremity ulcers 7 Elevated pro-calcitonin level, rule out possibility of infection, currently on Zosyn 8 Mildly elevated d-dimer, with no CT evidence of pulmonary embolism 9 Focal scarring versus spiculated nodule in the right upper lobe, will need outpatient follow-up, and possible PET scan 10 Chronic cachexia 11 Hypertension 12 Hyperlipidemia 13 Hypothyroidism 14 Osteoarthritis 15 hyperchloremic hypernatremia, mild, improved with free water supplements 15 multiple wounds with a large eschar over the right lower extremity and the patient has very stages of skin wounds throughout his body in addition to skin tears and a coccygeal wound , unstageable Plan: Wean off Precedex trial with a pressure support of 5 with a PEEP of 5 not possible extubation today with a DNR/DNI CODE STATUS and no intentions for reintubation upon the 's wishes. I think that's very reasonable taken account the patient's extreme debilitated condition. Obtain a blood gas in 1 hour Given another dose of Lasix 40 mg IV push Keep the IV fluids at KVO Remains on Zosyn, DuoNeb inhalations Continue Pulmicort and Perforomist inhalations, IV Solu-Medrol Overall prognosis remains quite guarded Continue enteral feeding for nutritional support Continue thyroid hormone replacement Continue amiodarone continue Lovenox Condition is critical. Prognosis poor. The patient likely will not survive extubation as the patient has been extremely weak and debilitated with no abilities to maintain airway patency and the high risk for respiratory insufficiency, failure of a later stage. His CODE STATUS is DNR/DNI. No plans to be intubated should the patient fail extubation trial. No plans to do any wound debridement. She will be essentially supportive at this point in time. I did have a lengthy discussion with the at the bedside and she was agreeable to this plan. Critically care evaluation was done and more than 30 minutes. Time with Patient: Greater than 30
[2021-08-26] MEDS ORDERED: FUROSEMIDE 10 MG/ML 4 ML VIAL IV STA (11:24)
[2021-08-26 11:47] LABS: Glucose,Whole Blood 177 mg/dL (75-99)
[2021-08-26 12:12] LABS: ABG Base Excess 0.7 mmol/L; ABG HCO3 27 mmol/L (21-25); ABG Oxygen Saturation 96.3 % (94-97); ABG PCO2 52 mmHg (35-45); ABG PH 7.32 (7.35-7.45); ABG PO2 81 mmHg (83-108); ABG TCO2 28 mmol/L (19-24)
[2021-08-26] MEDS: SODIUM CHLORIDE 0.9% 1,000 ML IV SCH (15:00)
--- NOTE | 2021-08-26 15:31 | P.PN ---
Subjective Progress Note Date: 08/26/21 CHIEF COMPLAINT: Right leg wound HISTORY OF PRESENT ILLNESS: Patient remains in the ICU and on mechanical ventilation. Patient currently undergoing CPAP trial. Patient initially scheduled for leg debridement today. However, family has declined surgical debridement at this time. They like to see if patient is able to extubate prior to proceeding with any surgical intervention per nursing staff. He is on Precedex for sedation. Surgical service is following in regards to his right leg pressure ulcer. Afebrile. WBC 15.2 down to 13.8 Hgb 7.5 platelets 211 sodium 145 potassium 4.1 and creatinine 0.92 PHYSICAL EXAM: VITAL SIGNS: Reviewed. ABDOMEN: Soft. Nondistended. NEUROLOGIC: Intubated and sedated Extremities right lower leg pressure ulceration with large scab and minimal drainage ASSESSMENT: 1. Right lower leg pressure ulcer PLAN: -Continue to observe. We'll hold off on leg debridement per family request at this time. -Continue ICU management -Continue supportive care Physician Environmental Engineering Technician note has been reviewed by physician. Signing provider agrees with the documented findings, assessment, and plan of care. Objective - Vital Signs Vital signs: Vital Signs Temp 97.7 F 08/26/21 08:00 Pulse 70 08/26/21 14:00 Resp 22 08/26/21 14:00 BP 129/57 08/26/21 14:00 Pulse Ox 99 08/26/21 14:00 FiO2 30 08/26/21 12:37 Intake & Output 08/25/21 08/26/21 08/26/21 18:59 06:59 18:59 Intake Total 341 1112.679 754.391 Output Total 6375 291 0427 Balance -1414 302.679 -590.609 Weight 59.8 kg 59.8 kg Intake: IV 253 299 158 Sodium Chloride 0.9% 1, 220 260 140 000 ml @ 20 mls/hr IV . Q24H [facility] Rx#:[id number] pressure bag 33 39 18 Intake, IV Titration 225.679 151.391 Amount Dexmedetomidine/0.9% NaCl 125.679 51.391 (Pmx) 400 mcg In Empty Bag 1 bag @ 0.2 MCG/KG/HR 3.14 mls/hr IV .Q24H [facility] Rx#:[id number] Piperacillin-Tazobactam 3 100 100 .375 gm In Sodium Chloride 0.9% 100 ml @ 25 mls/hr IVPB Q8HR [facility] Rx# :[id number] Tube Feeding 88 528 352 Lipid 3 pressure bag 3 Other 60 90 Output: Urine 1531 687 4970 Other: Voiding Method Indwelling Catheter Indwelling Catheter Indwelling Catheter # Bowel Movements 1 ABP, PAP, CO, CI - Last Documented Arterial Blood Pressure 165/44 - Labs CBC & Chem 7: 08/26/21 04:05 08/26/21 04:05 Labs: Abnormal Lab Results - Last 24 Hours (Table) 08/25/21 08/25/21 08/26/21 Range/Units 17:55 23:26 04:05 WBC 13.8 H (3.8-10.6) k/uL RBC 2.50 L (4.30-5.90) m/uL Hgb 7.5 L (13.0-17.5) gm/dL Hct 24.2 L (39.0-53.0) % MCHC 30.9 L (31.0-37.0) g/dL RDW 20.7 H (11.5-15.5) % Neutrophils # 13.1 H (1.3-7.7) k/uL Lymphocytes # 0.3 L (1.0-4.8) k/uL ABG pH (7.35-7.45) ABG pCO2 (35-45) mmHg ABG pO2 (83-108) mmHg ABG HCO3 (21-25) mmol/L ABG Total CO2 (19-24) mmol/L ABG O2 Saturation (94-97) % Chloride (98-107) mmol/L BUN (9-20) mg/dL Glucose (74-99) mg/dL POC Glucose (mg/dL) 180 H 165 H (75-99) mg/dL Calcium (8.4-10.2) mg/dL 08/26/21 08/26/21 08/26/21 Range/Units 04:05 05:48 05:49 WBC (3.8-10.6) k/uL RBC (4.30-5.90) m/uL Hgb (13.0-17.5) gm/dL Hct (39.0-53.0) % MCHC (31.0-37.0) g/dL RDW (11.5-15.5) % Neutrophils # (1.3-7.7) k/uL Lymphocytes # (1.0-4.8) k/uL ABG pH (7.35-7.45) ABG pCO2 (35-45) mmHg ABG pO2 81 L (83-108) mmHg ABG HCO3 27 H (21-25) mmol/L ABG Total CO2 28 H (19-24) mmol/L ABG O2 Saturation 97.3 H (94-97) % Chloride 117 H (98-107) mmol/L BUN 52 H (9-20) mg/dL Glucose 102 H (74-99) mg/dL POC Glucose (mg/dL) 154 H (75-99) mg/dL Calcium 7.5 L (8.4-10.2) mg/dL 08/26/21 08/26/21 Range/Units 11:46 12:10 WBC (3.8-10.6) k/uL RBC (4.30-5.90) m/uL Hgb (13.0-17.5) gm/dL Hct (39.0-53.0) % MCHC (31.0-37.0) g/dL RDW (11.5-15.5) % Neutrophils # (1.3-7.7) k/uL Lymphocytes # (1.0-4.8) k/uL ABG pH 7.32 L (7.35-7.45) ABG pCO2 52 H (35-45) mmHg ABG pO2 81 L (83-108) mmHg ABG HCO3 27 H (21-25) mmol/L ABG Total CO2 28 H (19-24) mmol/L ABG O2 Saturation (94-97) % Chloride (98-107) mmol/L BUN (9-20) mg/dL Glucose (74-99) mg/dL POC Glucose (mg/dL) 177 H (75-99) mg/dL Calcium (8.4-10.2) mg/dL
[2021-08-26 17:30] LABS: Glucose,Whole Blood 155 mg/dL (75-99)
--- NOTE | 2021-08-26 19:51 | P.PN ---
Subjective Progress Note Date: 08/26/21 Principal diagnosis: Possible aspiration pneumonia and multiple pressure ulcers She is a 71-year-old male with a past medical history significant for end-stage COPD admitted to the hospital with weakness and some shortness of breath patient did have worsening of his respiratory status requiring intubation and admission to the ICU, patient also have multiple pressure ulcers. On today's evaluation 08/26/2021, the patient remains to be afebrile, patient is hemodynamically stable not requiring pressor support, patient FiO2 is stable at 30 %, no purulent secretion through the ET or diarrhea or any changes reported by the nursing staff Objective - Vital Signs Vital signs: Vital Signs Temp 97.7 F 08/26/21 08:00 Pulse 61 08/26/21 12:00 Resp 25 H 08/26/21 12:00 BP 134/52 08/26/21 07:00 Pulse Ox 98 08/26/21 12:00 FiO2 30 08/26/21 09:07 Intake & Output 08/25/21 08/26/21 08/26/21 18:59 06:59 18:59 Intake Total 341 1112.679 576.391 Output Total 1755 810 320 Balance -1414 302.679 256.391 Weight 59.8 kg Intake: IV 253 299 112 Sodium Chloride 0.9% 1, 220 260 100 000 ml @ 20 mls/hr IV . Q24H [facility] Rx#:[id number] pressure bag 33 39 12 Intake, IV Titration 225.679 151.391 Amount Dexmedetomidine/0.9% NaCl 125.679 51.391 (Pmx) 400 mcg In Empty Bag 1 bag @ 0.2 MCG/KG/HR 3.14 mls/hr IV .Q24H [facility] Rx#:[id number] Piperacillin-Tazobactam 3 100 100 .375 gm In Sodium Chloride 0.9% 100 ml @ 25 mls/hr IVPB Q8HR [facility] Rx# :[id number] Tube Feeding 88 528 220 Lipid 3 pressure bag 3 Other 60 90 Output: Urine 1755 810 320 Other: Voiding Method Indwelling Catheter Indwelling Catheter Indwelling Catheter # Bowel Movements 1 ABP, PAP, CO, CI - Last Documented Arterial Blood Pressure 166/42 - Exam GENERAL DESCRIPTION: An elderly male intubated on the vent RESPIRATORY SYSTEM: Unlabored breathing , decreased breath sounds at bases HEART: S1 S2 regular rate and rhythm , ABDOMEN: Soft , no tenderness EXTREMITIES: No edema feet - Labs CBC & Chem 7: 08/26/21 04:05 08/26/21 04:05 Labs: Abnormal Lab Results - Last 24 Hours (Table) 08/25/21 08/25/21 08/26/21 Range/Units 17:55 23:26 04:05 WBC 13.8 H (3.8-10.6) k/uL RBC 2.50 L (4.30-5.90) m/uL Hgb 7.5 L (13.0-17.5) gm/dL Hct 24.2 L (39.0-53.0) % MCHC 30.9 L (31.0-37.0) g/dL RDW 20.7 H (11.5-15.5) % Neutrophils # 13.1 H (1.3-7.7) k/uL Lymphocytes # 0.3 L (1.0-4.8) k/uL ABG pH (7.35-7.45) ABG pCO2 (35-45) mmHg ABG pO2 (83-108) mmHg ABG HCO3 (21-25) mmol/L ABG Total CO2 (19-24) mmol/L ABG O2 Saturation (94-97) % Chloride (98-107) mmol/L BUN (9-20) mg/dL Glucose (74-99) mg/dL POC Glucose (mg/dL) 180 H 165 H (75-99) mg/dL Calcium (8.4-10.2) mg/dL 08/26/21 08/26/21 08/26/21 Range/Units 04:05 05:48 05:49 WBC (3.8-10.6) k/uL RBC (4.30-5.90) m/uL Hgb (13.0-17.5) gm/dL Hct (39.0-53.0) % MCHC (31.0-37.0) g/dL RDW (11.5-15.5) % Neutrophils # (1.3-7.7) k/uL Lymphocytes # (1.0-4.8) k/uL ABG pH (7.35-7.45) ABG pCO2 (35-45) mmHg ABG pO2 81 L (83-108) mmHg ABG HCO3 27 H (21-25) mmol/L ABG Total CO2 28 H (19-24) mmol/L ABG O2 Saturation 97.3 H (94-97) % Chloride 117 H (98-107) mmol/L BUN 52 H (9-20) mg/dL Glucose 102 H (74-99) mg/dL POC Glucose (mg/dL) 154 H (75-99) mg/dL Calcium 7.5 L (8.4-10.2) mg/dL 08/26/21 08/26/21 Range/Units 11:46 12:10 WBC (3.8-10.6) k/uL RBC (4.30-5.90) m/uL Hgb (13.0-17.5) gm/dL Hct (39.0-53.0) % MCHC (31.0-37.0) g/dL RDW (11.5-15.5) % Neutrophils # (1.3-7.7) k/uL Lymphocytes # (1.0-4.8) k/uL ABG pH 7.32 L (7.35-7.45) ABG pCO2 52 H (35-45) mmHg ABG pO2 81 L (83-108) mmHg ABG HCO3 27 H (21-25) mmol/L ABG Total CO2 28 H (19-24) mmol/L ABG O2 Saturation (94-97) % Chloride (98-107) mmol/L BUN (9-20) mg/dL Glucose (74-99) mg/dL POC Glucose (mg/dL) 177 H (75-99) mg/dL Calcium (8.4-10.2) mg/dL Assessment and Plan (1) Pneumonia Current Visit: Yes Status: Acute Code(s): J18.9 - PNEUMONIA, UNSPECIFIED ORG ANISM SNOMED Code(s): 105437576 Plan: 1patient presented to hospital with increasing shortness of breath could be related to her underlying cardiac etiology, patient subsequently did have worsening of his respiratory status requiring intubation and concern for possible aspiration. 2sputum culture grew Corynebacterium more likely colonization 3patient to continue local wound care with Medihoney to the left thigh wound with a slough rest of the wound with a dry necrotic area to keep them dry and of the pressure. 4-patient respiratory status with no worsening and will continue with the Zosyn monitor clinical course closely Time with Patient: Less than 30
--- NOTE | 2021-08-26 20:35 | P.PN ---
Subjective Progress Note Date: 08/26/21 This is a pleasant 71 years old male with past medical history of COPD, Hyperlipidemia, Hypertension, Osteoarthritis , Metabolic Encaphalopathy, Acute kidney failure with tubular necrosis, Cachexia, Chronic non-pressure ulcer of back, Rhabdomylosis was sent from [facility] with increased weakness and lethargy over the last 2-3days Patient is poor historian but as per staff with . his he has been a [facility] for the last 1-2 months and his been confused. pt looks cachectic and very frail, he is oriented to time ,place and person , but has no denture, his voice is muffled because of that he is been complaining from dyspnea and chest pain which is mild in the middle nonradiating and associated with very little cough. He says his shortness of breath was worse over the last 1 day and a half. Denies any abdominal pain or vomiting or diarrhea but he has low appetite. He denies any choking or swallow problem but he has no denture so we'll check for swallow evaluation Patient looks tachypneic with bilateral chest with some limited air entry but no ricardo wheezing. Patient states that he quit smoking about 10 years ago, used to smoke for more than 10 years. No alcohol or illicit drugs. He has multiple pressure ulcers he has one large pressure ulcers on the right leg laterally with drying scab Or any dressing . Also has multiple pressure ulcers with black eschar on both heels and left foot. The surrounding skin looks intact with no redness or swelling. On admission he was slightly tachypneic on 20, afebrile and heart rate was 84 and blood pressure 141/64, however overnight his blood pressure dropped with systolic 90s to 100, currently his blood pressure 104/68, also became tachycardic with heart rate 04/17/2049. He was saturating 9920% on 2-3 L oxygen via nasal cannula. He is mildly hypothermic at 97.2 His WBC is elevated at 17.7. Hemoglobin is 10.0. Platelet count 258. INR 0.9. BUN is 32 and creatinine 0.9. Troponin is 0.02 and less than 0.01. Glucose was on the low side 57 on admission and currently is 201. Urinalysis showed 1+ protein with no evidence of infection. Patient started on steroids and got a breathing treatment, IV fluids and started on amiodarone drips and Lovenox in the emergency room. D-dimer was elevated, therefore CTA of the chest was done which showed negative for pulmonary embolism, emphysematous changes with small pleural effusion. Also there is focal scattered versus speculated nodule in the right upper lobe we ordered stat CT of the brain and CT of the chest to rule out pulmonary embolism given his hypotension, tachycardia and tachypnea with elevated d-dimer. Also with mild hypoxia suspected. However patient confused per staff when he came in and could not be started on heparin drip before we rule out intracranial bleed before CT of the brain is also ordered with CT of the chest. Both tests came back negative 08/19/2021 Patient today during morning rounds found obtunded and responsive and unarousable with impending respiratory failure and he was transferred to the intensive care unit he got intubated and placed on mechanical ventilation with pulmonary/critical care team following closely and held with and management. His WBCs 11.6, hemoglobin 8.6, creatinine 1.4. chest x-ray sewn bilateral worsening infiltrates especially in the lower zones mood versus worsening infection His continued counseling atrial 60 mg, antibiotic form of Zosyn and amiodarone drip for developing A. fib and RVR. High-dose tenderness on hold 08/20/2021 Patient remains in the ICU intubated and sedated, he still tachypneic with respiratory rate of 28, his PEEP of 8.0 today. His hemoglobin is 7.1, creatinine 1.4. Remains on IV Solu-Medrol and Zosyn. Also is on amiodarone drip, and normal saline at 100 mL per hour. He still has bilateral leg ulceration with dried surface. Ultrasound showing evidence of chronic left DVT, currently he is on Lovenox 50 mg twice daily 08/21/2021 patient remains in the ICU sedated and intubated with pulmonary/critical care team following him closely and help with vent management . He is still on high PEEP relatively at 8 and FiO2 of 35%. He is tachypneic and tachycardic WBC 6.6, hemoglobin 7.5, creatinine improvement 1.2, chest x-ray showing no change. He remains on Zosyn, IV Solu-Medrol and normal saline 08/22/2021 Patient continues to be in the MICU with multiple medical consultations following. Pulmonary intensivists following and patient is maintained on IV steroids, duonebs, and IV antibiotics and will continue. Patient continues on vent with an FI02 of 30% and peep being weaned somewhat from 8 to 6 today. Chest xray is similar to previous day with no real improvement. Patient is afebrile. Patient overall prognosis is extremely poor and guarded and code status to be addressed. Cardiology following as well and have increased the metoprolol and continues on amiodarone. 08/23/2021 Patient continues to be in the ICU on mechanical vent with an FI02 of 30% and p eep is 6. Patient on sedation with holidays being conducted. Not tolerating and no plan for extubation at this time. General surgery consulted for right willis ulcer that has a large scab over it and apparently now some purulent drainage is noted. Possible debridement of the wound and recommend obtaining cultures. Patient is afebrile and sodium is elevated and IV fluids being transitioned to D5 in Water. Recommend repeat labs. 08/24/2021 Patient continues to be closely monitored in the medical ICU and maintained on mechanical vent. Chest x-ray shows persistent patchy opacification the left mid and lower lung zone slightly more prominent today with no progressive right pulmonary consolidation and grossly stable pleural effusions and also incidental finding of NG tube that needs further advancing into the stomach. Patient is continued on enteral nutrition via NG. Patient remains on mechanical vent with an FiO2 of 30% and PEEP is 6. Patient also continues on D5 in water and sodium is 142 today with a potassium of 3.9, creatinine is 0.87. Hemoglobin is 7.4 and WBC is 14.8 which is on an upward trend. Patient is afebrile. Patient continues on breathing inhalational treatments along with IV steroids 60 every 6 and IV Zosyn and is sedated with propofol at this time. Patient is tentatively scheduled for debridement of the right willis today. 08/25/2021 Patient is seen in follow-up in the ICU with multiple medical consultations following. Patient continues on mechanical vent with an FiO2 of 30% and PEEP is 6. Patient is currently off sedation and on Precedex low-dose. Attempting CPAP trials per pulmonary. Contemplating possible tracheostomy family continues to wish for the patient to remain full code. Patient is high risk for remaining on mechanical ventilation given his extensive comorbidities. Per nursing staff patient was not following commands although on exam right are asked patient to nod head yes or no is having any pain and patient nodded had no. Will then look around the room and stare off at the coats. Patient is extremely cachectic and ill-appearing and lethargic. Pulmonary following along with general surgery and plan is for possible debridement of that right willis in the a.m. Chest x-ray shows less prominent infiltration the left lower lung zone and unchanged remainder of the lungs. Patient also continues on breathing inhalational loyda tments along with IV steroids and IV Zosyn. Recommend electrolyte replacement per protocol and were within normal limits today. WBC mildly elevated and trending upward at 15.2, hemoglobin is 7.8. Patient is afebrile. 08/26/2021 Patient continues in the ICU and currently off pressor support. Patient is on low dose precedex and assessing for weaning parameters and currently maintained on cpap assist mode with 5/5 settings. When on vent Fio2 is 30% with a peep of 6. Patient family has made the patient no code and has cancelled the debridement of the right willis wound with general surgery. Possible extubation in the near future and no plans for reintubation. Patient WBC trending down and proc alcitonin is 0.07 and maintained on IV abx with ID following. Sputum likely colonization. Overall prognosis is poor and guarded. Patient is afebrile Review of systems: unable to obtain as patient is sedated and on mechanical vent. Active Medications Acetaminophen (Acetaminophen Tab 325 Mg Tab) 650 mg PO Q4H PRN PRN Reason: Pain or Fever > 100.5 Albuterol/Ipratropium (Ipratropium-Albuterol 3 Ml Neb) 3 ml INHALATION RT-Q4H PRN PRN Reason: Shortness Of Breath Or Wheezing Albuterol/Ipratropium (Ipratropium-Albuterol 3 Ml Neb) 3 ml INHALATION RT-Q4H [facility] Last Admin: 08/26/21 19:20 Dose: 3 ml Amiodarone HCl (Amiodarone 200 Mg Tab) 200 mg PO BID GRACIE Last Admin: 08/26/21 08:34 Dose: 200 mg Amlodipine Besylate (Amlodipine 10 Mg Tab) 10 mg PO DAILY [facility] Last Admin: 08/26/21 08:34 Dose: 10 mg Budesonide (Budesonide 1 Mg/2 Ml Nebu) 1 mg INHALATION RT-BID GRACIE Last Admin: 08/26/21 19:20 Dose: 1 mg Chlorhexidine Gluconate (Chlorhexidine Gluconate 15 Ml Cup) 15 ml MUCOUS MEM BID [facility] Last Admin: 08/26/21 08:34 Dose: 15 ml Enoxaparin Sodium (Enoxaparin 60 Mg/0.6 Ml Syringe) 50 mg SQ Q12HR [facility] Last Admin: 08/26/21 08:34 Dose: 50 mg Famotidine (Famotidine 20 Mg Tab) 20 mg PO DAILY [facility] Last Admin: 08/26/21 08:34 Dose: 20 mg Formoterol Fumarate (Formoterol Fumarate 20 Mcg/2 Ml Nebu) 20 mcg INHALATION RT-BID [facility] Last Admin: 08/26/21 19:20 Dose: 20 mcg Hydromorphone HCl (Hydromorphone 1 Mg/Ml 1 Ml Syringe) 1 mg IVP Q2HR PRN PRN Reason: Pain Last Admin: 08/26/21 11:19 Dose: 1 mg Sodium Chloride (Saline 0.9%) 1,000 mls @ 20 mls/hr IV .Q24H [facility] Last Admin: 08/26/21 15:00 Dose: Not Given Dexmedetomidine HCl 400 mcg/ (IV Solution) 100 mls @ 3.14 mls/hr IV .Q24H [facility]; Protocol Last Titration: 08/26/21 11:50 Dose: 0.3 mcg/kg/hr, 4.71 mls/hr Insulin Aspart (Insulin Aspart (Novolog) 100 Unit/Ml Vial) 0 unit SQ Q6HR [facility]; Protocol Last Admin: 08/26/21 18:03 Dose: 1 unit Levothyroxine Sodium (Levothyroxine 50 Mcg Tab) 50 mcg PO DAILY@0500 [facility] Last Admin: 08/26/21 06:04 Dose: 50 mcg Methylprednisolone Sodium Succinate (Methylprednisolone Sod Succi 125 Mg/2 Ml Vial) 60 mg IV Q6HR [facility] Last Admin: 08/26/21 18:03 Dose: 60 mg Metoprolol Tartrate (Metoprolol Tartrate 50 Mg Tab) 100 mg PO BID [facility] Last Admin: 08/26/21 08:34 Dose: 100 mg Miscellaneous Information (Magnesium Replacement Protocol 1 Each Misc) 1 each MISCELLANE DAILY PRN; Protocol PRN Reason: Per Protocol Miscellaneous Information (Potassium Replacement Protocol 1 Each Misc) 1 each MISCELLANE DAILY PRN; Protocol PRN Reason: Per Protocol Naloxone HCl (Naloxone 0.4 Mg/Ml 1 Ml Vial) 0.2 mg IV Q2M PRN PRN Reason: Opioid Reversal Tramadol HCl (Tramadol 50 Mg Tab) 50 mg PO Q6H PRN PRN Reason: Pain Last Admin: 08/25/21 20:18 Dose: 50 mg Physical Exam: GENERAL: The patient is intubated currently on assist mode trials 5/5 and on vent is 30% FI02 and peep is 6. and mildly sedated with Precedex, off propofol. more awake today HEENT: Pupils are round and equally reacting to light. EOMI. No scleral icterus. No conjunctival pallor. Normocephalic, atraumatic. No pharyngeal erythema. No thyromegaly. CARDIOVASCULAR: S1 and S2 present. No murmurs, rubs, or gallops. PULMONARY: Decreased air entry with scattered diffuse wheezing with course rhonchi ABDOMEN: Soft, nontender, nondistended, normoactive bowel sounds. No palpable organomegaly. MUSCULOSKELETAL: No joint swelling or deformity. EXTREMITIES: No cyanosis, clubbing, or pedal edema. Multiple bilateral leg ulcers including both heels and right lateral willis with large scabbing noted over entire surface of the wound. some surrounding redness noted and continued purulent drainage noted from the willis. No evidence of overt surrounding cellulitis NEUROLOGICAL: Gross neurological examination did not reveal any focal deficits. Unable to completely assess as patient continues to be lethargic and on precedex and not following all commands although asked patient to nod yes or no if in pain and patient nodded no twice on 2 separate occasions of asking this SKIN: No rashes. no petechiae. Assessment: Acute hypoxic respiratory failure requiring intubation and mechanical ventilation secondary to End stage COPD COPD with exacerbation Multiple pressure ulcers with suspected infection Aflutter with RVR, currently rate controlled Moderate calorie malnutrition with a BMI of 21.1 multiple leg wounds focal scar versus speculated nodule in the right upper lobe, will need outpatient PET scan History of hypertension, currently he is hypotensive Hyperlipidemia Dehydration Chronic altered mental status with some elements of acute related to metabolic encephalopathy. Possible dementia History of osteoarthritis History of chronic nonpressure ulcer of the back DVT prophylaxis: Subcutaneous Lovenox GI Prophylaxis: Pepcid No code Plan: Recommend continue on antibiotics and infectious disease is following. General surgery planned on debridement of the right willis, but family cancelled and changed code status to no code. Recommend continue on IV steroids along with breathing inhalational treatments. Patient is continued on mechanical vent with an FiO2 of 30% and PEEP is 6 and on low-dose Precedex,pulmonary assessing on assist mode and also assessing for weaning parameters, not yet today as there will be no reintubation per family and patient is high risk for not surviving extubation given his severe end stage COPD and medical debilities. Recommend follow-up with am labs Recommend follow-up chest x-ray in the morning Pulmonary and cardiology following Overall Prognosis is extremely poor and guarded CODE STATUS changed to no code per The impression and plan of care has been dictated by Lucy Reyes, Nurse Pract itioner as directed. Dr. Navi MD I have performed a history and examination and MDM of this patient, discussed the same with the dictator, and agree with the dictator's assessment and plan as written ,documented as a scribe. Based on total visit time, I have performed more than 50% of the visit. Objective - Vital Signs Vital signs: Vital Signs Temp 97.7 F 08/26/21 08:00 Pulse 63 08/26/21 09:27 Resp 21 08/26/21 09:27 BP 134/52 08/26/21 07:00 Pulse Ox 100 08/26/21 08:00 FiO2 30 08/26/21 09:07 Intake & Output 08/25/21 08/26/21 08/26/21 18:59 06:59 18:59 Intake Total 341 1112.679 294 Output Total 1755 810 110 Balance -1414 302.679 184 Weight 59.8 kg Intake: IV 253 299 46 Sodium Chloride 0.9% 1, 220 260 40 000 ml @ 20 mls/hr IV . Q24H GRACIE Rx#:[id number] pressure bag 33 39 6 Intake, IV Titration 225.679 100 Amount Dexmedetomidine/0.9% NaCl 125.679 (Pmx) 400 mcg In Empty Bag 1 bag @ 0.2 MCG/KG/HR 3.14 mls/hr IV .Q24H GRACIE Rx#:[id number] Piperacillin-Tazobactam 3 100 100 .375 gm In Sodium Chloride 0.9% 100 ml @ 25 mls/hr IVPB Q8HR GRACIE Rx# :[id number] Tube Feeding 88 528 88 Other 60 60 Output: Urine 1755 810 110 Other: Voiding Method Indwelling Catheter Indwelling Catheter Indwelling Catheter # Bowel Movements 1 ABP, PAP, CO, CI - Last Documented Arterial Blood Pressure 171/41 - Labs CBC & Chem 7: 08/26/21 04:05 08/26/21 04:05 Labs: Abnormal Lab Results - Last 24 Hours (Table) 08/25/21 08/25/21 08/25/21 Range/Units 10:15 11:37 17:55 WBC (3.8-10.6) k/uL RBC (4.30-5.90) m/uL Hgb (13.0-17.5) gm/dL Hct (39.0-53.0) % MCHC (31.0-37.0) g/dL RDW (11.5-15.5) % Neutrophils # (1.3-7.7) k/uL Lymphocytes # (1.0-4.8) k/uL ABG pH 7.33 L (7.35-7.45) ABG pCO2 48 H (35-45) mmHg ABG pO2 (83-108) mmHg ABG HCO3 26 H (21-25) mmol/L ABG Total CO2 27 H (19-24) mmol/L ABG O2 Saturation 97.9 H (94-97) % Chloride (98-107) mmol/L BUN (9-20) mg/dL Glucose (74-99) mg/dL POC Glucose (mg/dL) 198 H 180 H (75-99) mg/dL Calcium (8.4-10.2) mg/dL 08/25/21 08/26/21 08/26/21 Range/Units 23:26 04:05 04:05 WBC 13.8 H (3.8-10.6) k/uL RBC 2.50 L (4.30-5.90) m/uL Hgb 7.5 L (13.0-17.5) gm/dL Hct 24.2 L (39.0-53.0) % MCHC 30.9 L (31.0-37.0) g/dL RDW 20.7 H (11.5-15.5) % Neutrophils # 13.1 H (1.3-7.7) k/uL Lymphocytes # 0.3 L (1.0-4.8) k/uL ABG pH (7.35-7.45) ABG pCO2 (35-45) mmHg ABG pO2 (83-108) mmHg ABG HCO3 (21-25) mmol/L ABG Total CO2 (19-24) mmol/L ABG O2 Saturation (94-97) % Chloride 117 H (98-107) mmol/L BUN 52 H (9-20) mg/dL Glucose 102 H (74-99) mg/dL POC Glucose (mg/dL) 165 H (75-99) mg/dL Calcium 7.5 L (8.4-10.2) mg/dL 08/26/21 08/26/21 Range/Units 05:48 05:49 WBC (3.8-10.6) k/uL RBC (4.30-5.90) m/uL Hgb (13.0-17.5) gm/dL Hct (39.0-53.0) % MCHC (31.0-37.0) g/dL RDW (11.5-15.5) % Neutrophils # (1.3-7.7) k/uL Lymphocytes # (1.0-4.8) k/uL ABG pH (7.35-7.45) ABG pCO2 (35-45) mmHg ABG pO2 81 L (83-108) mmHg ABG HCO3 27 H (21-25) mmol/L ABG Total CO2 28 H (19-24) mmol/L ABG O2 Saturation 97.3 H (94-97) % Chloride (98-107) mmol/L BUN (9-20) mg/dL Glucose (74-99) mg/dL POC Glucose (mg/dL) 154 H (75-99) mg/dL Calcium (8.4-10.2) mg/dL
[2021-08-27 00:32] LABS: Glucose,Whole Blood 164 mg/dL (75-99)
[2021-08-27] MEDS: methylPREDNISolone SOD SUCCI 125 MG/2 ML VIAL IV SCH ×5 (00:40→23:50)
[2021-08-27] MEDS: INSULIN ASPART (NovoLOG) 100 UNIT/ML VIAL SQ SCH ×5 (00:40→23:45)
[2021-08-27] MEDS: HYDROmorphone 1 MG/ML 1 ML SYRINGE IVP PRN (01:43)
[2021-08-27] MEDS: DEXMEDETOMIDINE/0.9% NACL(PMX) 400 MCG in EMPTY BAG 1 BAG IV SCH ×2 (01:43→18:48)
[2021-08-27] MEDS: IPRATROPIUM-ALBUTEROL 3 ML NEB INHALATION SCH ×6 (02:55→23:33)
[2021-08-27 05:53] LABS: ABG Base Excess 3.2 mmol/L; ABG HCO3 29 mmol/L (21-25); ABG PCO2 50 mmHg (35-45); ABG PH 7.37 (7.35-7.45); ABG PO2 170 mmHg (83-108); ABG TCO2 30 mmol/L (19-24)
[2021-08-27 06:02] LABS: ABG Oxygen Saturation 99.7 % (94-97); Allen Test Performed? No
--- NOTE | 2021-08-27 06:54 | XR ---
EXAMINATION TYPE: XR chest 1V DATE OF EXAM: 08/27/2021 COMPARISON: 08/25/2021 HISTORY: Mechanical ventilation TECHNIQUE: Single frontal view of the chest is obtained. FINDINGS: There is an ET tube 4 cm above the josette. There is an NG tube within the stomach. There i s a left central venous catheter tip in the SVC/R junction. There is hyperinflation lungs and flattening the diaphragms consistent with COPD. There is a small left pleural effusion. There is no pneumothorax. The lungs are clear. The osseous structures are intact IMPRESSION: 1. ET tube 4 cm above the josette. 2. COPD 3 small left pleural effusion 4. Mild interval improvement in the degree of pleural fluid
[2021-08-27 06:58] LABS: Glucose,Whole Blood 284 mg/dL (75-99)
[2021-08-27] MEDS: LEVOTHYROXINE 50 MCG TAB PO SCH (07:01)
[2021-08-27 08:16] LABS: Anisocytosis Moderate; HGB 7.2 gm/dL (13.0-17.5); Hypochromasia Marked; MCHC 31.4 g/dL (31.0-37.0); MCV 98.8 fL (80.0-100.0); Macrocytosis Moderate; Mean Platelet Volume 11.3; Platelet Count 225 k/uL (150-450); RBC 2.32 m/uL (4.30-5.90); RDW 21.6 % (11.5-15.5); WBC 15.8 k/uL (3.8-10.6)
[2021-08-27] MEDS: CHLORHEXIDINE GLUCONATE 15 ML CUP MUCOUS MEM SCH (08:17)
[2021-08-27] MEDS: METOPROLOL TARTRATE 50 MG TAB PO SCH ×2 (08:17→20:46)
[2021-08-27] MEDS: amLODIPine 10 MG TAB PO SCH (08:18)
[2021-08-27] MEDS: AMIODARONE 200 MG TAB PO SCH ×2 (08:19→20:46)
[2021-08-27] MEDS: ENOXAPARIN 60 MG/0.6 ML SYRINGE SQ SCH ×3 (08:19→21:12)
[2021-08-27] MEDS: FAMOTIDINE 20 MG TAB PO SCH (08:19)
[2021-08-27] MEDS: BUDESONIDE 1 MG/2 ML NEBU INHALATION SCH ×2 (08:29→19:08)
[2021-08-27] MEDS: FORMOTEROL FUMARATE 20 MCG/2 ML NEBU INHALATION SCH ×2 (08:29→19:07)
[2021-08-27 08:40] LABS: ALT 31 U/L (4-49); AST 9 U/L (17-59); African American GFR (CKD) >90 (>60 ml/min/1.73 sqM); Albumin 2.3 g/dL (3.5-5.0); Alkaline Phosphatase 51 U/L (38-126); Anion Gap 5 mmol/L; Blood Urea Nitrogen 59 mg/dL (9-20); Calcium 7.6 mg/dL (8.4-10.2); Carbon Dioxide 28 mmol/L (22-30); Chloride 116 mmol/L (98-107); Glucose 267 mg/dL (74-99); Non-African American GFR(CKD) 87 (>60 ml/min/1.73 sqM); Potassium 3.4 mmol/L (3.5-5.1); Sodium 149 mmol/L (137-145); Total Bilirubin 0.3 mg/dL (0.2-1.3); Total Protein 4.3 g/dL (6.3-8.2)
[2021-08-27] MEDS ORDERED: FUROSEMIDE 10 MG/ML 4 ML VIAL IV STA (09:39)
--- NOTE | 2021-08-27 09:39 | P.PN ---
Subjective Progress Note Date: 08/27/21 71-year-old male patient with known history of severe end-stage COPD, with a baseline FEV1 of 0.67 L or 25% predicted as November 2020 PFT, on home oxygen patient usually wears 3 L of oxygen on a regular basis, ex-smoker, chronic dyspnea, hypertension, hyperlipidemia, osteoarthritis, cachexia, chronic nonhealing ulcers involving bilateral feet. Patient was recently required hospitalization in the last several weeks at the [facility] when he required mechanical ventilator support. Patient follows with Dr. Hall in the pulmonary clinic. On 08/17/2021 patient presents to the emergency department from a assisted because of weakness and fatigue. Patient was also complaining of some chest discomfort in the morning, and shortness of breath. Denied any recent fever or chills. No worsening cough wheezing or phlegm production. No hemoptysis. Chest x-ray showed small bilateral pleural effusions with minimal subsegmental atelectasis at the left base. EKG showed sinus rhythm, with minimal ST depression in inferior leads, and T-wave inversion in aVL and LVH. Laboratory evaluation showed elevated white count of 17.7, hemoglobin of 10.0, platelet count of 285, d-dimer was mildly elevated to 0.97, sodium is 144, potassium is 5.1, BUN of 32, creatinine 0.69, 2 sets of troponins were negative at 0.020, less than 0.012, pro-calcitonin level was elevated to 0.50, TSH was within normal limits, LFTs were within normal limits, plasma lactic acid was 1.3 urinalysis without sign of infection. CT angiogram of the chest showed no evidence of acute pulmonary embolism, and moderate emphysematous change with small size right greater than left pleural effusions. There was foc al scarring versus spiculated nodule in the posterior right upper lobe which is new from 2014 study with recommendation of follow-up PET scan. Patient is currently on 3 L of oxygen pulse ox is 99%, he is very short of breath at rest, but appears to be in no acute distress, he is able to answer some simple questions, but he does have conversational dyspnea as well. Afebrile, he is tachycardic, cardiology has been consulted for SVT. Patient is on amiodarone infusion at 1 mg/m for rate control, he is on empiric antibiotics and breathing treatments and IV steroids. The patient is seen today 08/19/2021 in follow-up on the selective care unit. Upon arrival the patient was quite obtunded and unarousable and breathing shallow. He was immediately transferred to the intensive care unit requiring emergent intubation and placed on the mechanical ventilator. Initial settings included assist control mode with a rate of 20, tidal volume 350, FiO2 100% and a PEEP of 5. Left subclavian triple-lumen catheter place. Right radial arterial line placed. Arterial blood gases revealed a PaO2 of 124, pCO2 of 65 and a pH of 7.19. His respiratory rate was increased to 28. PEEP increased to 8. Plans to titrate down the FiO2. White count 11.6. Hemoglobin 8.6. Platelets 256. Sodium 143. Potassium 4.9. Chloride 113. BUN 44. Creatinine 1.42. Glucose 134. AST 42. ALT 195. Albumin 2.8. He is currently sedated on propofol at 50 mcg/kg/m. To be given 1-2 L of fluid resuscitation. Chest x-ray reveals no evidence of pneumothorax, satisfactory positioning of the endotracheal and orogastric tubes. There is worsening left lung edema/infiltrates. Improved aeration of the right lung base. Augmentin discontinued. Initiated on Zosyn. Pro-calcitonin pending. Culture revealing no growth to date. He was initially in atrial fibrillation requiring amiodarone . He is continued on bronchodilators, IV Solu-Medrol. He remains in a positive balance. The patient is seen today 08/20/2021 in follow-up in the intensive care unit. He remains intubated on mechanical ventilator. Still notices control mode with a rate of 28, attentive on 350, FiO2 40% and a PEEP of 8. Morning blood gases revealed a PaO2 of 113, pCO2 42, pH 7.32. He remains sedated on propofol at 75 mcg/kg/m. He has normal saline running at 100 ML's per hour. He is being nourished with vital HPI at 20 ML's per hour with a goal of 36. He is on antibiotics in the form of Zosyn. He is continued on DuoNeb inhalations, Pulmicort and Perforomist inhalations, IV Solu-Medrol. Chest x-ray continues to show mildly improved aeration in the left lung with persistent multifocal airspace opacities. Small bilateral effusions left greater than right. Evidence of COPD. Endotracheal, nasogastric tubes and left central venous catheter all in appropriate position. Blood culture reveals no growth to date. Sputum cultures pending. White count 8.3. Hemoglobin 7.1. Platelets 188. Sodium 143. Potassium 4.8. Chloride 116. Bicarb 21. BUN 44. Creatinine 1.44. Glucose 156. Currently in a +2.5 L. Currently in sinus rhythm. He remains on oral amiodarone. Lovenox for DVT prophylaxis. The patient is seen today 08/21/2021 in follow-up in the intensive care unit. He remains intubated on mechanical ventilator. Currently an assist-control mode. Rate of 28, tidal volume 350, FiO2 35% and a PEEP of 8. Morning blood gases revealed a PaO2 of 108, pCO2 42 and a pH of 7.31. He remains sedated on propofol at 75 mcg/kg/m. He has normal saline at 100 ML's per hour. He is being nourished with vital HPI at 36 ML's per hour. Chest x-ray can continues to show some improvement in the left lower lung. He remains on Zosyn. Endotracheal tube to be advanced 2 cm. Pro-calcitonin was 0.41. Blood culture reveals no growth. Sputum culture pending. White count 6.6. Hemoglobin 7.5. Platelets 163. Sodium 142. Potassium 4.2. Bicarb 21. BUN 39. Creatinine 1.26. Glucose 202. He is currently in a +3.2 L balance. He remains on DuoNeb inhalations, Pulmicort and Perforomist inhalations, IV Solu-Medrol. Antibiotics in the form of Zosyn. Lovenox for DVT prophylaxis. He remains hemodynamically stable. 08/22/2021, the patient is being seen for a follow-up. As mentioned, a 71-year-old male patient with advanced COPD with an FEV1 of 0.67 L benefit 1 of around 25% of predicted, with known history of chronic hypoxic respiratory failure maintained on oxygen at 3 L and currently the patient intubated on a mechanical ventilator. He is on propofol running at [place] micrograms per kilogram per minute. The patient is an assist-control mode of mechanical ventilation at the rate of 28 with a tidal volume of 350 and FiO2 of 30% with a PEEP of 8. Peak airway pressure is around 26-30. The patient has an auto PEEP which is in the order of 3 cm of water. The blood gases from today shows a pH of 7.30 with a pCO2 of 40 and pO2 of 116. His serum bicarbonate is at 20, and the patient could have been potentially a CO2 retainer with chronic metabolic alkalosis and this can be relative acidosis. The rest of the blood work shows a sodium level of 146, potassium of 3.7, BUN of 38 with a creatinine of 0.9. The white cell count is at 9 with a hemoglobin of 7.2. The patient is currently covered empirically with IV Zosyn. The chest x-ray from today is showing adequate positioning of the ET tube. The patient has bilateral lower lobe small pleural effusions. No major interval change compared to yesterday. He remains on DuoNeb nebulized treatments around the clock. Remains on IV Solu-Medrol and remains on IV Zosyn. The pro-calcitonin level was at 0.631 at a time of admission. Lactic acid level was nonelevated the time of admission. The patient has a flutter rhythm and currently is on oral amiodarone. He is also on anticoagulation with Lovenox 50 mg subcu every 12 hours under the recommendations of cardiology. Note that the patient also has chronic once and the wounds are multiple involving the right forearm where he is a skin tear, right calf ulcer, right willis, left thigh, left foot and left elbow and he also has a sacral wound stage II. None of these wounds are draining. The one on his right willis is covered with a rather thick scab which is extending in the area under his knee to the mid the patient is also on goal enteral feeding and the pa tient is currently on vital high protein right running at the rate of 36. 08/23 2021, the patient remains intubated on a mechanical ventilator. This morning, he remains on propofol running at 60 mcg/kg per minute. The patient is quite sensitive a mechanical ventilator. He remains on assist control mode at the rate of 40 with a tidal volume of 325 with an FiO2 of 30% and a PEEP of 6. Peak airway pressures around 25. His I:E ratio is 1-6. No significant rest or secretions. Blood gases showed a pH of 7.32 with a pCO2 of 43 and pO2 of 92. The patient remains on assist control mode of mechanical ventilation, volume cycle. The chest x-ray is not showing any acute abnormalities. ET tube is in a good location. There is hyperinflation consistent with COPD. There is also increased haziness in lung bases bilaterally compared to yesterday chest x-ray, possibly some effusion/pulmonary vessel congestion.. Note that the patient remains on IV Zosyn. His pro-calcitonin level at the time of admission was 0.631. His lactic acid level was nonelevated. He remains in atrial flutter rhythm with a controlled rate. No major changes in his condition since yesterday. He is receiving enteral feeding for nutritional support and currently he is on Gigoptix running good today shows 36. The patient is afebrile. The patient is hemodynamically stable. The patient is on no pressors for now. In terms of his cardiac status, the patient remains on oral amiodarone and Lopressor and the patient is also on Lovenox 50 mg subcu every 12 hours per cardiology as an anticoagulant. He does have multiple wounds throughout his lower extremity and upper extremity and the sacrum. He is extensively debilitated. His blood work from today showing a sodium level of 147, potassium of 4 Cardizem 121 with a BUN of 40 and a creatinine of 0.9. Blood sugar is 153. The white cell count is currently at 12.6 with a hemoglobin of 7.3 and a platelet count of 160s . Upon further inspection, the right leg wounds which has a large eschar is draining some purulent material and this needs to be further debrided. 08/24/2021, the patient remains on a mechanical ventilator. He received a sed at holiday yesterday. He went on for a total of 2.5 half hours. He open up his eyes and he was not following any commands and at that point, he was having some autonomic reactions and he was started back on sedation. This morning, he was on propofol at 50 mcg/kg per minute. He is in the process of getting another sedation holiday. He is off sedation for around half an hour. His opening up his eyes. His grimacing to painful stimulation. He is not following any commands. Does not move and is quite debilitated and extremely weak at this point in time. The patient remains on a mechanical ventilator on assist control mode at the rate of 14 with a tidal volume of 375 and FiO2 of 30% with a PEEP of 6. Peak airway pressures 27. Blood gases from today show a pH of 7.32 with a pCO2 of 44 and pO2 of 108. Chest x-ray from today is showing no significant interval change. ET tube remains in a good location. The patient has no evidence of any pneumothorax. There is hyperinflation regarding his underlying COPD. There is increased haziness in the lung bases bilaterally and a component of mild pulmonary vascular congestion. The tip of the orotracheal tube is around 3.5 cm above the josette. There is persistent patchy opacity in the left mid and lower lung hawk slightly more prominent on today's evaluation. Meanwhile, the patient's has a white cell count of 14.8. Hemoglobin is at 7.4. He had is a 41 with a creatinine of 0.8 and a sodium level of 142. He is afebrile for now. His pro-calcitonin level from 08/19/2021 was 0.41. His fluid balance over the past 24 hours is +2.2 L and the patient is currently on D5W at the rate of 100 mL an hour and the patient is receiving enteral feeding for nutritional support and he is receiving vital high protein at the rate of 29 mL an hour. Note that the patient's that have a component of hyponatremia yesterday and for that reason he was started on free water supplements. Gen. surgery was also consulted on this patient regarding his wounds and the large eschar over the right lower extremity and this needs to be debrided a later stage. My concern is that the patient is extremely debilitated and he may not be a good candidate for weaning and he may not reach a successful weaning off the mechanical ventilator. I have were discussed this with his . 08/25/2021, the patient is currently off propofol and the patient is currently on Precedex and this is being gradually weaned off as the patient is quite comfortable on a mechanical ventilator while being on Precedex. Precedex is currently running at a dose of 0.3 mcg/kg per minute and the patient seems to be sections a mechanical ventilator. On today's evaluation, he opens up his eyes. He does not follow any commands. He is not checking at this point in time. Note that he is on a low-dose of Precedex. He is on a mechanical ventilator on assist control mode at the rate of 14 with a tidal volume of 375 and FiO2 of 40% with a PEEP of 6. The blood gas showed pH of 7.32 with a pCO2 of 48 and pO2 of 79. The peak airway pressures nonelevated and the patient has equal and symmetrical breath sounds. The repeat chest x-ray was done today that showed i mprovement in the left sided perihilar pulmonary infiltrates. His improvement in the volume status. The infiltrate on the left his left prominent specially in the left lower lobe. ET tube remains in a good location. No significant orotracheal secretions. The patient remains on IV Zosyn for now. The cultures are essentially negative other than josette bacterium in the sputum which is probably a colonizer. He is afebrile. He is hemodynamically stable. Affect is slightly hypertensive. He is receiving enteral feeding for nutritional support without any major difficulties and he is on vital high protein at the rate of 44 mL an hour. In terms of his fluid balance, I put him on D5 water to yesterday regarding his hypernatremia. He was also started on free water supplements. The sodium level today is at 142 and he is currently on 0.9 at 20 mL an hour and the free water has been discontinued and the patient was given a dose of Lasix yesterday. Overall fluid balance since yesterday has been in the order of +2.2 L. He is afebrile. Hemodynamically stable. Pro-calcitonin level was 0.41. Of concern is his profound weakness and the patient is still not following commands despite having some degree of alertness and he opens up his eyes and looks around without any purpose. He does grimace to painful stimulation and withdraws to painful stimulation in all 4 extremities. The large wound over the right lower extremity is covered with a dry eschar. The edges of the wounds are draining purulent material. he has multiple unstageable wounds on his buttocks on multiple areas. 08/26/2021, the patient is on Precedex which is running at a dose of 0.5 mcg/kg per minute. He is more arousable compared to yesterday. His tract in and he did may be use his hands to grab upon demand. His eyes are open. He follows no commands at this point in time. He is breathing comfortably on a mechanical ventilator. He is hemodynamically stable. Is an assist-control mode at the rat e of 14 with a tidal volume of 375 mL with an FiO2 of 30% and a PEEP of 6. The blood gases from today showed a pH of 7.39 with a pCO2 of 43 and pO2 of 80. The patient had no chest x-ray done today. His blood work shows a stable white cell count of 15.8 with a hemoglobin of 7.5 and a platelet count of 211. Sodium is at 145. Bicarb is a 28 with a BUN of 52 and a creatinine of 0.9. The overall fluid balance over the past 24 hours has been had it hours a negative fluid balance. The patient is afebrile. The patient is hemodynamically stable. The patient is on no pressors. The patient is receiving enteral feeding for nutritional support and the patient is currently on vital high protein at the rate of 44 mL an hour. As mentioned, the patient has multiple wounds largest being his right lower extremity and another unstageable wounds in his buttocks. We have not debrided wounds yet and the procedure was canceled upon the family's request. Furthermore, the family opted to change his CODE STATUS to DO NOT RESUSCITATE DO NOT INTUBATE. No other significant events overnight. His car diac rhythm is sinus. He remains on bronchodilators. He remains on steroids. He remains on an empiric antibiotic coverage with IV Zosyn. 08/27/2021, the patient is being seen for a follow-up. He is awake. He is following some simple commands. He is not thing with his had an upon questioning, he stated that he wanted the tube out. He is on Precedex running at 0.5 mcg/kg/h. He is nicely sedated and is calm and comfortable. He has remained on a pressure support mode of mechanical ventilation throughout the day yesterday. He is currently on a pressure support of 5 and a PEEP of 6. The chest x-ray from today showing a hyperinflation and left basilar pleural effusion which is essentially small. ET tube remains in a good location. No other new acute abnormalities have been noted. The patient does not have any major respiratory secretions. Blood. This from today showed a pH of 7.37 with a pCO2 of 50 and pO2 of 170. Hemodynamically stable. He is on no pressors. His white cell count of 15 with a hemoglobin of 7.2. Same time, the patient has developed some mild hyperchloremic hypernatremia and this is despite his third spacing. His sodium level is up to 149. Cortisone and 16. BUN is 59 with a creatinine of 0.8. He is afebrile. He has multiple wounds as stated. He has become more edematous in all 4 extremities. He remains on bronchodilators, steroids, and is also on IV Zosyn. Overall fluid balance is -1.1 L over the past 24 hours. Examination of his wound revealed that the patient is developing a hematoma-like blisters in the medial aspect of his right thigh. The dry scabbed wounds over the lateral aspect of the right lower extremity is unchanged although it has become more wet as the patient is becoming edematous in all 4 extremities. Objective - Vital Signs Vital signs: Vital Signs Temp 98.4 F 08/27/21 08:00 Pulse 73 08/27/21 09:00 Resp 26 H 08/27/21 09:00 BP 143/59 08/27/21 09:00 Pulse Ox 99 08/27/21 09:00 FiO2 30 08/27/21 08:28 Intake & Output 08/26/21 08/27/21 08/27/21 18:59 06:59 18:59 Intake Total 0599.753 4313.462 249 Output Total 1970 785 300 Balance -747.609 345.462 -51 Weight 59.8 kg 59.6 kg Intake: IV 250 276 69 Sodium Chloride 0.9% 1, 220 240 60 000 ml @ 20 mls/hr IV . Q24H GRACIE Rx#:[id number] pressure bag 30 36 9 Intake, IV Titration 251.391 80.462 Amount Dexmedetomidine/0.9% NaCl 51.391 80.462 (Pmx) 400 mcg In Empty Bag 1 bag @ 0.2 MCG/KG/HR 3.14 mls/hr IV .Q24H GRACIE Rx#:[id number] Piperacillin-Tazobactam 3 200 .375 gm In Sodium Chloride 0.9% 100 ml @ 25 mls/hr IVPB Q8HR GRACIE Rx# :[id number] Tube Feeding 568 714 180 Lipid 3 pressure bag 3 Other 150 60 Output: Urine 1969 785 300 Other: Voiding Method Indwelling Catheter Indwelling Catheter # Bowel Movements 1 ABP, PAP, CO, CI - Last Documented Arterial Blood Pressure 175/48 - Exam GENERAL EXAM: Intubated, sedated cachectic-looking 71-year-old male. , The patient grimaces deep painful stimulation. Currently is on precedex. He remains intubated and orotracheal and orogastric tube are both in place. HEAD: Normocephalic/atraumatic. EYES: Normal reaction of pupils, equal size. Conjunctiva pink, sclera white. NOSE: Clear with pink turbinates. THROAT: No erythema or exudates. NECK: No masses, no JVD, no thyroid enlargement, no adenopathy. CHEST: No chest wall deformity. Symmetrical expansion. LUNGS: Equal air entry with diffuse crackles, diminished breath sounds CVS: Regular rate and rhythm, normal S1 and S2, no gallops, no murmurs, no rubs ABDOMEN: Soft, nontender. No hepatosplenomegaly, normal bowel sounds, no guarding or rigidity. EXTREMITIES: No clubbing, there is edema in his upper extremities bilaterally, no cyanosis, 2+ pulses and upper and lower extremities. MUSCULOSKELETAL: Muscle strength and tone normal. SPINE: No scoliosis or deformity SKIN: No rashes, the patient has an large-sized eschar over the right lower extremity wound edges draining some purulent material, he also has all kinds of wounds and skin tears on his heels, and forearms and legs. Nevertheless, the dominant one is his right lower extremity and his coccyx which is unstageable at this point in time. CENTRAL NERVOUS SYSTEM: Sedated. Tone is normal in all 4 extremities. Opens up his eyes spontaneously and tracks. Does not follow commands. Pupils are equal and reactive to light. Grimaces to painful stimulation in all 4 extremities. Sharp PSYCHIATRIC: Unable to assess - Labs CBC & Chem 7: 08/27/21 07:54 08/27/21 07:54 Labs: Abnormal Lab Results - Last 24 Hours (Table) 08/26/21 08/26/21 08/26/21 Range/Units 11:46 12:10 17:29 WBC (3.8-10.6) k/uL RBC (4.30-5.90) m/uL Hgb (13.0-17.5) gm/dL Hct (39.0-53.0) % RDW (11.5-15.5) % ABG pH 7.32 L (7.35-7.45) ABG pCO2 52 H (35-45) mmHg ABG pO2 81 L (83-108) mmHg ABG HCO3 27 H (21-25) mmol/L ABG Total CO2 28 H (19-24) mmol/L ABG O2 Saturation (94-97) % Sodium (137-145) mmol/L Potassium (3.5-5.1) mmol/L Chloride (98-107) mmol/L BUN (9-20) mg/dL Glucose (74-99) mg/dL POC Glucose (mg/dL) 177 H 155 H (75-99) mg/dL Calcium (8.4-10.2) mg/dL AST (17-59) U/L Total Protein (6.3-8.2) g/dL Albumin (3.5-5.0) g/dL 08/27/21 08/27/21 08/27/21 Range/Units 00:30 05:18 06:55 WBC (3.8-10.6) k/uL RBC (4.30-5.90) m/uL Hgb (13.0-17.5) gm/dL Hct (39.0-53.0) % RDW (11.5-15.5) % ABG pH (7.35-7.45) ABG pCO2 50 H (35-45) mmHg ABG pO2 170 H (83-108) mmHg ABG HCO3 29 H (21-25) mmol/L ABG Total CO2 30 H (19-24) mmol/L ABG O2 Saturation 99.7 H (94-97) % Sodium (137-145) mmol/L Potassium (3.5-5.1) mmol/L Chloride (98-107) mmol/L BUN (9-20) mg/dL Glucose (74-99) mg/dL POC Glucose (mg/dL) 164 H 284 H (75-99) mg/dL Calcium (8.4-10.2) mg/dL AST (17-59) U/L Total Protein (6.3-8.2) g/dL Albumin (3.5-5.0) g/dL 08/27/21 08/27/21 Range/Units 07:54 07:54 WBC 15.8 H (3.8-10.6) k/uL RBC 2.32 L (4.30-5.90) m/uL Hgb 7.2 L (13.0-17.5) gm/dL Hct 23.0 L (39.0-53.0) % RDW 21.6 H (11.5-15.5) % ABG pH (7.35-7.45) ABG pCO2 (35-45) mmHg ABG pO2 (83-108) mmHg ABG HCO3 (21-25) mmol/L ABG Total CO2 (19-24) mmol/L ABG O2 Saturation (94-97) % Sodium 149 H (137-145) mmol/L Potassium 3.4 L (3.5-5.1) mmol/L Chloride 116 H (98-107) mmol/L BUN 59 H (9-20) mg/dL Glucose 267 H (74-99) mg/dL POC Glucose (mg/dL) (75-99) mg/dL Calcium 7.6 L (8.4-10.2) mg/dL AST 9 L (17-59) U/L Total Protein 4.3 L (6.3-8.2) g/dL Albumin 2.3 L (3.5-5.0) g/dL Assessment and Plan Plan: 1 Acute exacerbation of COPD with acute hypoxemic respiratory failure requiring intubation and mechanical ventilation on 08/19/2021 chest x-ray showing bilateral lower lobe infiltrates/effusions, in addition to left perihilar pulmonary infiltrate. Patient is afebrile. The patient is hemodynamically stable. The chest x-ray from today shows interval improvement in the left-sided pulmona ry infiltrate and the patient was given Lasix yesterday. The patient is currently on IV fluids at [facility]. He remains on IV Zosyn. Chest x-ray in the findings are consistent with a left lower lobe effusion/infiltrate. No major interval change compared to yesterday. Nevertheless, the patient was able to tolerate a pressure support of 5 and a PEEP of 6/smoking is breathing since yesterday and since been 24 hours for now. Blood gas of adequate. I'm considering activating the patient today with understanding that he will not be reintubated should there be any respiratory failure in the future. As stated, this on his comorbid conditions, he is at high risk going to get into respiratory failure status quite debilitated, cachectic, multiple comorbidities with extensive wounds throughout his body. His baseline FEV1 is in order of 25% of predicted consistent with severe COPD. 2 A flutter with RVR, currently in sinus rhythm, on oral amiodarone, Lovenox 3 History of severe end-stage COPD with baseline FEV1 of 25% of predicted 4 Chronic hypoxic respiratory failure related to the above 5 Former smoker 6 Nonhealing bilateral lower extremity ulcers 7 Elevated pro-calcitonin level, rule out possibility of infection, currently on Zosyn 8 Mildly elevated d-dimer, with no CT evidence of pulmonary embolism 9 Focal scarring versus spiculated nodule in the right upper lobe, will need outpatient follow-up, and possible PET scan 10 Chronic cachexia 11 Hypertension 12 Hyperlipidemia 13 Hypothyroidism 14 Osteoarthritis 15 hyperchloremic hypernatremia, mild, improved with free water supplements 15 multiple wounds with a large eschar over the right lower extremity and the patient has very stages of skin wounds throughout his body in addition to skin tears and a coccygeal wound , unstageable Plan: T low-dose Precedex Keep the patient a spontaneous mode of ventilation with a pressure support of 5 and a PEEP of 6 Chest x-ray and blood gases were noted Give Lasix 40 mg IV Put the patient on D5 water at the rate of 50 We'll contact the family and would proceed with extubation to BiPAP Given another dose of Lasix 40 mg IV push Keep the IV fluids at KVO Remains on Zosyn, DuoNeb inhalations Continue Pulmicort and Perforomist inhalations, IV Solu-Medrol Overall prognosis remains quite guarded Continue enteral feeding for nutritional support Continue thyroid hormone replacement Continue amiodarone continue Lovenox Condition is critical. Prognosis poor. The patient likely will not survive extubation as the patient has been extremely weak and debilitated with no abilities to maintain airway patency and the high risk for respiratory insufficiency, failure of a later stage. His CODE STATUS is DNR/DNI. No plans to be intubated should the patient fail extubation trial. No plans to do any wound debridement. She will be essentially supportive at this point in time. Critically care evaluation was done and more than 30 minutes. Time with Patient: Greater than 30
[2021-08-27] MEDS: DEXTROSE 5% IN WATER 1,000 ML IV SCH (10:43)
--- NOTE | 2021-08-27 11:28 | P.PN ---
Progress Note - Text Progress Note Date: 08/27/21 Patient remains clinically unchanged. His leg wound is stable. We will remain on standby family consents to debridement of leg wound
[2021-08-27 11:44] LABS: Glucose,Whole Blood 237 mg/dL (75-99)
--- NOTE | 2021-08-27 13:20 | P.PN ---
Subjective Progress Note Date: 08/27/21 This is a pleasant 71 years old male with past medical history of COPD, Hyperlipidemia, Hypertension, Osteoarthritis , Metabolic Encaphalopathy, Acute kidney failure with tubular necrosis, Cachexia, Chronic non-pressure ulcer of back, Rhabdomylosis was sent from [facility] with increased weakness and lethargy over the last 2-3days Patient is poor historian but as per staff with . his he has been a detention for the last 1-2 months and his been confused. pt looks cachectic and very frail, he is oriented to time ,place and person , but has no denture, his voice is muffled because of that he is been complaining from dyspnea and chest pain which is mild in the middle nonradiating and associated with very little cough. He says his shortness of breath was worse over the last 1 day and a half. Denies any abdominal pain or vomiting or diarrhea but he has low appetite. He denies any choking or swallow problem but he has no denture so we'll check for swallow evaluation Patient looks tachypneic with bilateral chest with some limited air entry but no ricardo wheezing. Patient states that he quit smoking about 10 years ago, used to smoke for more than 10 years. No alcohol or illicit drugs. He has multiple pressure ulcers he has one large pressure ulcers on the right leg laterally with drying scab Or any dressing . Also has multiple pressure ulcers with black eschar on both heels and left foot. The surrounding skin looks intact with no redness or swelling. On admission he was slightly tachypneic on 20, afebrile and heart rate was 84 and blood pressure 141/64, however overnight his blood pressure dropped with systolic 90s to 100, currently his blood pressure 104/68, also became tachycardic with heart rate 04/17/2049. He was saturating 9920% on 2-3 L oxygen via nasal cannula. He is mildly hypothermic at 97.2 His WBC is elevated at 17.7. Hemoglobin is 10.0. Platelet count 258. INR 0.9. BUN is 32 and creatinine 0.9. Troponin is 0.02 and less than 0.01. Glucose was on the low side 57 on admission and currently is 201. Urinalysis showed 1+ protein with no evidence of infection. Patient started on steroids and got a breathing treatment, IV fluids and started on amiodarone drips and Lovenox in the emergency room. D-dimer was elevated, therefore CTA of the chest was done which showed negative for pulmonary embolism, emphysematous changes with small pleural effusion. Also there is focal scattered versus speculated nodule in the right upper lobe we ordered stat CT of the brain and CT of the chest to rule out pulmonary embolism given his hypotension, tachycardia and tachypnea with elevated d-dimer. Also with mild hypoxia suspected. However patient confused per staff when he came in and could not be started on heparin drip before we rule out intracranial bleed before CT of the brain is also ordered with CT of the chest. Both tests came back negative 08/24/2021 Patient continues to be closely monitored in the medical ICU and maintained on mechanical vent. Chest x-ray shows persistent patchy opacification the left mid and lower lung zone slightly more prominent today with no progressive right pulmonary consolidation and grossly stable pleural effusions and also incidental finding of NG tube that needs further advancing into the stomach. Patient is continued on enteral nutrition via NG. Patient remains on mechanical vent with an FiO2 of 30% and PEEP is 6. Patient also continues on D5 in water and sodium is 142 today with a potassium of 3.9, creatinine is 0.87. Hemoglobin is 7.4 and WBC is 14.8 which is on an upward trend. Patient is afebrile. Patient continues on breathing inhalational treatments along with IV steroids 60 every 6 and IV Zosyn and is sedated with propofol at this time. Patient is tentatively scheduled for debridement of the right willis today. 08/25/2021 Patient is seen in follow-up in the ICU with multiple medical consultations following. Patient continues on mechanical vent with an FiO2 of 30% and PEEP is 6. Patient is currently off sedation and on Precedex low-dose. Attempting CPAP trials per pulmonary. Contemplating possible tracheostomy family continues to wish for the patient to remain full code. Patient is high risk for remaining on mechanical ventilation given his extensive comorbidities. Per nursing staff patient was not following commands although on exam right are asked patient to nod head yes or no is having any pain and patient nodded had no. Will then look around the room and stare off at the coats. Patient is extremely cachectic and ill-appearing and lethargic. Pulmonary following along with general surgery and plan is for possible debridement of that right willis in the a.m. Chest x-ray shows less prominent infiltration the left lower lung zone and unchanged rem ainder of the lungs. Patient also continues on breathing inhalational treatments along with IV steroids and IV Zosyn. Recommend electrolyte replacement per protocol and were within normal limits today. WBC mildly elevated and trending upward at 15.2, hemoglobin is 7.8. Patient is afebrile. 08/26/2021 Patient continues in the ICU and currently off pressor support. Patient is on low dose precedex and assessing for weaning parameters and currently maintained on cpap assist mode with 5/5 settings. When on vent Fio2 is 30% with a peep of 6. Patient family has made the patient no code and has cancelled the debridement of the right willis wound with general surgery. Possible extubation in the near future and no plans for reintubation. Patient WBC trending down and procalcitonin is 0.07 and maintained on IV abx with ID following. Sputum likely colonization. Overall prognosis is poor and guarded. Patient is afebrile 08/27/2021 Patient seen on follow-up in the ICU, he is currently intubated on mechanical ventilation, pressure support of 5, PEEP of 6 ABG from today shows pH 7.37, pCO2 50, pO2 170. He is currently on Precedex, but is alert opening his eyes, however today shows his [place] [address] receiving IV hydration with D5 water. Currently hemodynamically stable, no fevers. Continues antimicrobial therapy of Zosyn as coronary bacterium growing in the sputum is continued on systemic steroids. Stable creatinine 0.87, blood sugars been running in the 200s he is on sliding scale coverage. Review of systems: unable to obtain as patient is sedated and on mechanical vent. Active Medications Acetaminophen (Acetaminophen Tab 325 Mg Tab) 650 mg PO Q4H PRN PRN Reason: Pain or Fever > 100.5 Albuterol/Ipratropium (Ipratropium-Albuterol 3 Ml Neb) 3 ml INHALATION RT-Q4H PRN PRN Reason: Shortness Of Breath Or Wheezing Albuterol/Ipratropium (Ipratropium-Albuterol 3 Ml Neb) 3 ml INHALATION RT-Q4H [facility] Last Admin: 08/26/21 19:20 Dose: 3 ml Amiodarone HCl (Amiodarone 200 Mg Tab) 200 mg PO BID [facility] Last Admin: 08/26/21 08:34 Dose: 200 mg Amlodipine Besylate (Amlodipine 10 Mg Tab) 10 mg PO DAILY [facility] Last Admin: 08/26/21 08:34 Dose: 10 mg Budesonide (Budesonide 1 Mg/2 Ml Nebu) 1 mg INHALATION RT-BID [facility] Last Admin: 08/26/21 19:20 Dose: 1 mg Chlorhexidine Gluconate (Chlorhexidine Gluconate 15 Ml Cup) 15 ml MUCOUS MEM BID [facility] Last Admin: 08/26/21 08:34 Dose: 15 ml Enoxaparin Sodium (Enoxaparin 60 Mg/0.6 Ml Syringe) 50 mg SQ Q12HR [facility] Last Admin: 08/26/21 08:34 Dose: 50 mg Famotidine (Famotidine 20 Mg Tab) 20 mg PO DAILY [facility] Last Admin: 08/26/21 08:34 Dose: 20 mg Formoterol Fumarate (Formoterol Fumarate 20 Mcg/2 Ml Nebu) 20 mcg INHALATION RT-BID [facility] Last Admin: 08/26/21 19:20 Dose: 20 mcg Hydromorphone HCl (Hydromorphone 1 Mg/Ml 1 Ml Syringe) 1 mg IVP Q2HR PRN PRN Reason: Pain Last Admin: 08/26/21 11:19 Dose: 1 mg Sodium Chloride (Saline 0.9%) 1,000 mls @ 20 mls/hr IV .Q24H [facility] Last Admin: 08/26/21 15:00 Dose: Not Given Dexmedetomidine HCl 400 mcg/ (IV Solution) 100 mls @ 3.14 mls/hr IV .Q24H [facility]; Protocol Last Titration: 08/26/21 11:50 Dose: 0.3 mcg/kg/hr, 4.71 mls/hr Insulin Aspart (Insulin Aspart (Novolog) 100 Unit/Ml Vial) 0 unit SQ Q6HR [facility]; Protocol Last Admin: 08/26/21 18:03 Dose: 1 unit Levothyroxine Sodium (Levothyroxine 50 Mcg Tab) 50 mcg PO DAILY@0500 [facility] Last Admin: 08/26/21 06:04 Dose: 50 mcg Methylprednisolone Sodium Succinate (Methylprednisolone Sod Succi 125 Mg/2 Ml Vial) 60 mg IV Q6HR [facility] Last Admin: 08/26/21 18:03 Dose: 60 mg Metoprolol Tartrate (Metoprolol Tartrate 50 Mg Tab) 100 mg PO BID [facility] Last Admin: 08/26/21 08:34 Dose: 100 mg Miscellaneous Information (Magnesium Replacement Protocol 1 Each Misc) 1 each MISCELLANE DAILY PRN; Protocol PRN Reason: Per Protocol Miscellaneous Information (Potassium Replacement Protocol 1 Each Misc) 1 each MISCELLANE DAILY PRN; Protocol PRN Reason: Per Protocol Naloxone HCl (Naloxone 0.4 Mg/Ml 1 Ml Vial) 0.2 mg IV Q2M PRN PRN Reason: Opioid Reversal Tramadol HCl (Tramadol 50 Mg Tab) 50 mg PO Q6H PRN PRN Reason: Pain Last Admin: 08/25/21 20:18 Dose: 50 mg Physical Exam: GENERAL: The patient is intubated, mildly sedated, opens his eyes, alert HEENT: Pupils are round and equally reacting to light. EOMI. No scleral icterus. No conjunctival pallor. Normocephalic, atraumatic. No pharyngeal erythema. No thyromegaly. CARDIOVASCULAR: S1 and S2 present. No murmurs, rubs, or gallops. PULMONARY: Decreased air entry with scattered diffuse wheezing with course rhonchi ABDOMEN: Soft, nontender, nondistended, normoactive bowel sounds. No palpable organomegaly. MUSCULOSKELETAL: No joint swelling or deformity. EXTREMITIES: No cyanosis, clubbing, or pedal edema. Multiple bilateral leg ulcers including both heels and right lateral willis with large scabbing noted over entire surface of the wound. some surrounding redness noted and continued purulent drainage noted from the willis. No evidence of overt surrounding cellulitis NEUROLOGICAL: On light sedation Precedex, opens eyes spontaneously Gross neurological examination did not reveal any focal deficits. Unable to completely assess as patient continues to be lethargic and on precedex and not following all commands although asked patient to nod yes or no if in pain and patient nodded no twice on 2 separate occasions of asking this SKIN: No rashes. no petechiae. Assessment: Acute hypoxic respiratory failure requiring intubation and mechanical ventilation secondary to End stage COPD COPD with exacerbation Multiple pressure ulcers with suspected infection Aflutter with RVR, currently rate controlled Moderate calorie malnutrition with a BMI of 21.1 multiple leg wounds focal scar versus speculated nodule in the right upper lobe, will need outpatient PET scan History of hypertension, currently he is hypotensive Hyperlipidemia Hypernatremia Hypokalemia Dehydration Chronic altered mental status with some elements of acute related to metabolic encephalopathy. Possible dementia History of osteoarthritis History of chronic nonpressure ulcer of the back DVT prophylaxis: Subcutaneous Lovenox GI Prophylaxis: Pepcid No code Plan: Recommend continue on antibiotics and infectious disease is following. General surgery planned on debridement of the right willis, but family cancelled a nd changed code status to no code. Recommend continue on IV Solu-Medrol, DuoNeb and Pulmicort inhalations Intubated, ventilatory support, light sedation with Precedex, possible weaning parameters today IV fluids D5W, replace potassium monitor lites and renal function High-risk extubation end-stage COPD. Recommend follow-up with am labs Dilaudid as needed for pain Recommend follow-up chest x-ray in the morning Pulmonary and cardiology following Overall Prognosis is extremely poor and guarded CODE STATUS changed to no code per The impression and plan of care has been dictated by Rios Ramirez Nurse Practitioner as directed. Dr. Navi MD I have performed a history and examination and MDM of this patient, discussed the same with the dictator, and agree with the dictator's assessment and plan as written ,documented as a scribe. Based on total visit time, I have performed more than 50% of the visit. Objective - Vital Signs Vital signs: Vital Signs Temp 97.6 F 08/27/21 12:00 Pulse 70 08/27/21 12:00 Resp 24 08/27/21 12:00 BP 138/69 08/27/21 12:00 Pulse Ox 99 08/27/21 12:00 FiO2 30 08/27/21 12:00 Intake & Output 08/26/21 08/27/21 08/27/21 18:59 06:59 18:59 Intake Total 7575.758 8107.462 488 Output Total 0898 136 1094 Balance -747.609 345.462 -712 Weight 59.8 kg 59.6 kg Intake: IV 250 276 138 Sodium Chloride 0.9% 1, 220 240 120 000 ml @ 20 mls/hr IV . Q24H [facility] Rx#:[id number] pressure bag 30 36 18 Intake, IV Titration 251.391 80.462 50 Amount Dexmedetomidine/0.9% NaCl 51.391 80.462 (Pmx) 400 mcg In Empty Bag 1 bag @ 0.2 MCG/KG/HR 3.14 mls/hr IV .Q24H [facility] Rx#:[id number] Dextrose 5% in Water 1, 50 000 ml @ 50 mls/hr IV . Q20H [facility] Rx#:[id number] Piperacillin-Tazobactam 3 200 .375 gm In Sodium Chloride 0.9% 100 ml @ 25 mls/hr IVPB Q8HR [facility] Rx# :[id number] Tube Feeding 568 714 300 Lipid 3 pressure bag 3 Other 150 60 Output: Urine 5551 835 2801 Other: Voiding Method Indwelling Catheter Indwelling Catheter Indwelling Catheter # Bowel Movements 1 1 ABP, PAP, CO, CI - Last Documented Arterial Blood Pressure 172/50 - Labs CBC & Chem 7: 08/27/21 07:54 08/27/21 07:54 Labs: Abnormal Lab Results - Last 24 Hours (Table) 08/26/21 08/27/21 08/27/21 Range/Units 17:29 00:30 05:18 WBC (3.8-10.6) k/uL RBC (4.30-5.90) m/uL Hgb (13.0-17.5) gm/dL Hct (39.0-53.0) % RDW (11.5-15.5) % ABG pCO2 50 H (35-45) mmHg ABG pO2 170 H (83-108) mmHg ABG HCO3 29 H (21-25) mmol/L ABG Total CO2 30 H (19-24) mmol/L ABG O2 Saturation 99.7 H (94-97) % Sodium (137-145) mmol/L Potassium (3.5-5.1) mmol/L Chloride (98-107) mmol/L BUN (9-20) mg/dL Glucose (74-99) mg/dL POC Glucose (mg/dL) 155 H 164 H (75-99) mg/dL Calcium (8.4-10.2) mg/dL AST (17-59) U/L Total Protein (6.3-8.2) g/dL Albumin (3.5-5.0) g/dL 08/27/21 08/27/21 08/27/21 Range/Units 06:55 07:54 07:54 WBC 15.8 H (3.8-10.6) k/uL RBC 2.32 L (4.30-5.90) m/uL Hgb 7.2 L (13.0-17.5) gm/dL Hct 23.0 L (39.0-53.0) % RDW 21.6 H (11.5-15.5) % ABG pCO2 (35-45) mmHg ABG pO2 (83-108) mmHg ABG HCO3 (21-25) mmol/L ABG Total CO2 (19-24) mmol/L ABG O2 Saturation (94-97) % Sodium 149 H (137-145) mmol/L Potassium 3.4 L (3.5-5.1) mmol/L Chloride 116 H (98-107) mmol/L BUN 59 H (9-20) mg/dL Glucose 267 H (74-99) mg/dL POC Glucose (mg/dL) 284 H (75-99) mg/dL Calcium 7.6 L (8.4-10.2) mg/dL AST 9 L (17-59) U/L Total Protein 4.3 L (6.3-8.2) g/dL Albumin 2.3 L (3.5-5.0) g/dL 08/27/21 Range/Units 11:43 WBC (3.8-10.6) k/uL RBC (4.30-5.90) m/uL Hgb (13.0-17.5) gm/dL Hct (39.0-53.0) % RDW (11.5-15.5) % ABG pCO2 (35-45) mmHg ABG pO2 (83-108) mmHg ABG HCO3 (21-25) mmol/L ABG Total CO2 (19-24) mmol/L ABG O2 Saturation (94-97) % Sodium (137-145) mmol/L Potassium (3.5-5.1) mmol/L Chloride (98-107) mmol/L BUN (9-20) mg/dL Glucose (74-99) mg/dL POC Glucose (mg/dL) 237 H (75-99) mg/dL Calcium (8.4-10.2) mg/dL AST (17-59) U/L Total Protein (6.3-8.2) g/dL Albumin (3.5-5.0) g/dL
[2021-08-27] MEDS: POTASSIUM BICARBONATE/CIT AC 20 MEQ TABLET.EFF NG-TUBE SCH ×2 (13:21→14:32)
[2021-08-27] MEDS: PIPERACILLIN-TAZOBACTAM 3.375 GM in SODIUM CHLORIDE 0.9% 100 ML IVPB SCH ×2 (16:51→23:51)
[2021-08-27 17:57] LABS: Glucose,Whole Blood 167 mg/dL (75-99)
--- NOTE | 2021-08-27 20:22 | P.PN ---
Subjective Progress Note Date: 08/27/21 Principal diagnosis: Possible aspiration pneumonia and multiple pressure ulcers She is a 71-year-old male with a past medical history significant for end-stage COPD admitted to the hospital with weakness and some shortness of breath patient did have worsening of his respiratory status requiring intubation and admission to the ICU, patient also have multiple pressure ulcers. On today's evaluation 08/27/2021, the patient continues to be afebrile, patient is hemodynamically stable not requiring pressor support, patient FiO2 is currently at 35 %, no purulent secretion through the ET or diarrhea or any changes reported by the nursing staff Objective - Vital Signs Vital signs: Vital Signs Temp 97.3 F L 08/27/21 16:00 Pulse 79 08/27/21 19:25 Resp 22 08/27/21 19:00 BP 149/69 08/27/21 19:00 Pulse Ox 98 08/27/21 19:00 FiO2 35 08/27/21 19:08 Intake & Output 08/27/21 08/27/21 08/28/21 06:59 18:59 06:59 Intake Total 3377.156 5266 73 Output Total 785 2060 75 Balance 345.462 -1034 -2 Weight 59.6 kg Intake: IV 276 276 23 Sodium Chloride 0.9% 1, 240 240 20 000 ml @ 20 mls/hr IV . Q24H [facility] Rx#:[id number] pressure bag 36 36 3 Intake, IV Titration 80.462 450 50 Amount Dexmedetomidine/0.9% NaCl 80.462 100 (Pmx) 400 mcg In Empty Bag 1 bag @ 0.2 MCG/KG/HR 3.14 mls/hr IV .Q24H [facility] Rx#:[id number] Dextrose 5% in Water 1, 350 50 000 ml @ 50 mls/hr IV . Q20H [facility] Rx#:[id number] Tube Feeding 714 300 Other 60 Output: Urine 785 2060 75 Other: Voiding Method Indwelling Catheter Indwelling Catheter # Bowel Movements 1 ABP, PAP, CO, CI - Last Documented Arterial Blood Pressure 203/56 - Exam GENERAL DESCRIPTION: An elderly male intubated on the vent RESPIRATORY SYSTEM: Unlabored breathing , decreased breath sounds at bases HEART: S1 S2 regular rate and rhythm , ABDOMEN: Soft , no tenderness EXTREMITIES: No edema feet - Labs CBC & Chem 7: 08/27/21 07:54 08/27/21 07:54 Labs: Abnormal Lab Results - Last 24 Hours (Table) 08/27/21 08/27/21 08/27/21 Range/Units 00:30 05:18 06:55 WBC (3.8-10.6) k/uL RBC (4.30-5.90) m/uL Hgb (13.0-17.5) gm/dL Hct (39.0-53.0) % RDW (11.5-15.5) % ABG pCO2 50 H (35-45) mmHg ABG pO2 170 H (83-108) mmHg ABG HCO3 29 H (21-25) mmol/L ABG Total CO2 30 H (19-24) mmol/L ABG O2 Saturation 99.7 H (94-97) % Sodium (137-145) mmol/L Potassium (3.5-5.1) mmol/L Chloride (98-107) mmol/L BUN (9-20) mg/dL Glucose (74-99) mg/dL POC Glucose (mg/dL) 164 H 284 H (75-99) mg/dL Calcium (8.4-10.2) mg/dL AST (17-59) U/L Total Protein (6.3-8.2) g/dL Albumin (3.5-5.0) g/dL 08/27/21 08/27/21 08/27/21 Range/Units 07:54 07:54 11:43 WBC 15.8 H (3.8-10.6) k/uL RBC 2.32 L (4.30-5.90) m/uL Hgb 7.2 L (13.0-17.5) gm/dL Hct 23.0 L (39.0-53.0) % RDW 21.6 H (11.5-15.5) % ABG pCO2 (35-45) mmHg ABG pO2 (83-108) mmHg ABG HCO3 (21-25) mmol/L ABG Total CO2 (19-24) mmol/L ABG O2 Saturation (94-97) % Sodium 149 H (137-145) mmol/L Potassium 3.4 L (3.5-5.1) mmol/L Chloride 116 H (98-107) mmol/L BUN 59 H (9-20) mg/dL Glucose 267 H (74-99) mg/dL POC Glucose (mg/dL) 237 H (75-99) mg/dL Calcium 7.6 L (8.4-10.2) mg/dL AST 9 L (17-59) U/L Total Protein 4.3 L (6.3-8.2) g/dL Albumin 2.3 L (3.5-5.0) g/dL 08/27/21 Range/Units 17:55 WBC (3.8-10.6) k/uL RBC (4.30-5.90) m/uL Hgb (13.0-17.5) gm/dL Hct (39.0-53.0) % RDW (11.5-15.5) % ABG pCO2 (35-45) mmHg ABG pO2 (83-108) mmHg ABG HCO3 (21-25) mmol/L ABG Total CO2 (19-24) mmol/L ABG O2 Saturation (94-97) % Sodium (137-145) mmol/L Potassium (3.5-5.1) mmol/L Chloride (98-107) mmol/L BUN (9-20) mg/dL Glucose (74-99) mg/dL POC Glucose (mg/dL) 167 H (75-99) mg/dL Calcium (8.4-10.2) mg/dL AST (17-59) U/L Total Protein (6.3-8.2) g/dL Albumin (3.5-5.0) g/dL Assessment and Plan (1) Pneumonia Current Visit: Yes Status: Acute Code(s): J18.9 - PNEUMONIA, UNSPECIFIED OR GANISM SNOMED Code(s): 018977452 Plan: 1patient presented to hospital with increasing shortness of breath could be related to her underlying cardiac etiology, patient subsequently did have worsening of his respiratory status requiring intubation and concern for possible aspiration. 2sputum culture grew Corynebacterium more likely colonization 3patient to continue local wound care with Medihoney to the left thigh wound with a slough rest of the wound with a dry necrotic area to keep them dry and of the pressure. 4-patient to continue with the Zosyn and continue supportive care Time with Patient: Less than 30
[2021-08-27 23:46] LABS: Glucose,Whole Blood 122 mg/dL (75-99)
[2021-08-28] MEDS: IPRATROPIUM-ALBUTEROL 3 ML NEB INHALATION SCH ×5 (04:02→19:54)
[2021-08-28] MEDS: DEXTROSE 5% IN WATER 1,000 ML IV SCH ×2 (05:52→20:42)
[2021-08-28 05:57] LABS: Glucose,Whole Blood 140 mg/dL (75-99)
[2021-08-28] MEDS: methylPREDNISolone SOD SUCCI 125 MG/2 ML VIAL IV SCH ×4 (05:58→23:57)
[2021-08-28] MEDS: INSULIN ASPART (NovoLOG) 100 UNIT/ML VIAL SQ SCH ×4 (05:58→23:56)
[2021-08-28 05:59] LABS: Anisocytosis Moderate; Basophils % (A) 0 %; Eosinophils % (A) 0 %; HCT 24.1 % (39.0-53.0); HGB 7.1 gm/dL (13.0-17.5); Hypochromasia Moderate; Lymphocytes # (A) 0.2 k/uL (1.0-4.8); Lymphocytes % (A) 1 %; MCH 29.4 pg (25.0-35.0); MCHC 29.6 g/dL (31.0-37.0); MCV 99.1 fL (80.0-100.0); Macrocytosis Moderate; Monocytes # (A) 0.3 k/uL (0-1.0); Monocytes % (A) 2 %; Neutrophils % (A) 96 %; Platelet Count 205 k/uL (150-450); RBC 2.43 m/uL (4.30-5.90); RDW 21.3 % (11.5-15.5); WBC 13.5 k/uL (3.8-10.6)
[2021-08-28] MEDS: LEVOTHYROXINE 50 MCG TAB PO SCH (05:59)
[2021-08-28 06:11] LABS: African American GFR (CKD) >90 (>60 ml/min/1.73 sqM); Anion Gap 3 mmol/L; Blood Urea Nitrogen 48 mg/dL (9-20); Calcium 7.6 mg/dL (8.4-10.2); Carbon Dioxide 32 mmol/L (22-30); Chloride 114 mmol/L (98-107); Glucose 140 mg/dL (74-99); Non-African American GFR(CKD) 89 (>60 ml/min/1.73 sqM); Potassium 3.6 mmol/L (3.5-5.1); Sodium 149 mmol/L (137-145)
[2021-08-28] MEDS ORDERED: Potassium Replacement Protocol 1 EACH MISC MISCELLANE PRN (06:29)
[2021-08-28] MEDS: FORMOTEROL FUMARATE 20 MCG/2 ML NEBU INHALATION SCH ×2 (08:24→19:54)
[2021-08-28] MEDS: BUDESONIDE 1 MG/2 ML NEBU INHALATION SCH ×2 (08:24→19:54)
[2021-08-28] MEDS: AMIODARONE 200 MG TAB PO SCH ×2 (08:29→20:41)
[2021-08-28] MEDS: FAMOTIDINE 20 MG TAB PO SCH (08:29)
[2021-08-28] MEDS: amLODIPine 10 MG TAB PO SCH (08:29)
[2021-08-28] MEDS: POTASSIUM CHLORIDE 10 MEQ in WATER FOR INJECTION 1 100ML.BAG IVPB SCH ×2 (08:29→09:46)
[2021-08-28] MEDS ORDERED: FUROSEMIDE 10 MG/ML 4 ML VIAL IV STA (10:58)
--- NOTE | 2021-08-28 10:58 | P.PN ---
Subjective Progress Note Date: 08/28/21 71-year-old male patient with known history of severe end-stage COPD, with a baseline FEV1 of 0.67 L or 25% predicted as November 2020 PFT, on home oxygen patient usually wears 3 L of oxygen on a regular basis, ex-smoker, chronic dyspnea, hypertension, hyperlipidemia, osteoarthritis, cachexia, chronic nonhealing ulcers involving bilateral feet. Patient was recently required hospitalization in the last several weeks at the [facility] when he required mechanical ventilator support. Patient follows with Dr. Hall in the pulmonary clinic. On 08/17/2021 patient presents to the emergency department from a care home because of weakness and fatigue. Patient was also complaining of some chest discomfort in the morning, and shortness of breath. Denied any recent fever or chills. No worsening cough wheezing or phlegm production. No hemoptysis. Chest x-ray showed small bilateral pleural effusions with minimal subsegmental atelectasis at the left base. EKG showed sinus rhythm, with minimal ST depression in inferior leads, and T-wave inversion in aVL and LVH. Laboratory evaluation showed elevated white count of 17.7, hemoglobin of 10.0, platelet count of 285, d-dimer was mildly elevated to 0.97, sodium is 144, potassium is 5.1, BUN of 32, creatinine 0.69, 2 sets of troponins were negative at 0.020, less than 0.012, pro-calcitonin level was elevated to 0.50, TSH was within normal limits, LFTs were within normal limits, plasma lactic acid was 1.3 urinalysis without sign of infection. CT angiogram of the chest showed no evidence of acute pulmonary embolism, and moderate emphysematous change with small size right greater than left pleural effusions. There was foc al scarring versus spiculated nodule in the posterior right upper lobe which is new from 2014 study with recommendation of follow-up PET scan. Patient is currently on 3 L of oxygen pulse ox is 99%, he is very short of breath at rest, but appears to be in no acute distress, he is able to answer some simple questions, but he does have conversational dyspnea as well. Afebrile, he is tachycardic, cardiology has been consulted for SVT. Patient is on amiodarone infusion at 1 mg/m for rate control, he is on empiric antibiotics and breathing treatments and IV steroids. The patient is seen today 08/19/2021 in follow-up on the selective care unit. Upon arrival the patient was quite obtunded and unarousable and breathing shallow. He was immediately transferred to the intensive care unit requiring emergent intubation and placed on the mechanical ventilator. Initial settings included assist control mode with a rate of 20, tidal volume 350, FiO2 100% and a PEEP of 5. Left subclavian triple-lumen catheter place. Right radial arterial line placed. Arterial blood gases revealed a PaO2 of 124, pCO2 of 65 and a pH of 7.19. His respiratory rate was increased to 28. PEEP increased to 8. Plans to titrate down the FiO2. White count 11.6. Hemoglobin 8.6. Platelets 256. Sodium 143. Potassium 4.9. Chloride 113. BUN 44. Creatinine 1.42. Glucose 134. AST 42. ALT 195. Albumin 2.8. He is currently sedated on propofol at 50 mcg/kg/m. To be given 1-2 L of fluid resuscitation. Chest x-ray reveals no evidence of pneumothorax, satisfactory positioning of the endotracheal and orogastric tubes. There is worsening left lung edema/infiltrates. Improved aeration of the right lung base. Augmentin discontinued. Initiated on Zosyn. Pro-calcitonin pending. Culture revealing no growth to date. He was initially in atrial fibrillation requiring amiodarone . He is continued on bronchodilators, IV Solu-Medrol. He remains in a positive balance. The patient is seen today 08/20/2021 in follow-up in the intensive care unit. He remains intubated on mechanical ventilator. Still notices control mode with a rate of 28, attentive on 350, FiO2 40% and a PEEP of 8. Morning blood gases revealed a PaO2 of 113, pCO2 42, pH 7.32. He remains sedated on propofol at 75 mcg/kg/m. He has normal saline running at 100 ML's per hour. He is being nourished with vital HPI at 20 ML's per hour with a goal of 36. He is on antibiotics in the form of Zosyn. He is continued on DuoNeb inhalations, Pulmicort and Perforomist inhalations, IV Solu-Medrol. Chest x-ray continues to show mildly improved aeration in the left lung with persistent multifocal airspace opacities. Small bilateral effusions left greater than right. Evidence of COPD. Endotracheal, nasogastric tubes and left central venous catheter all in appropriate position. Blood culture reveals no growth to date. Sputum cultures pending. White count 8.3. Hemoglobin 7.1. Platelets 188. Sodium 143. Potassium 4.8. Chloride 116. Bicarb 21. BUN 44. Creatinine 1.44. Glucose 156. Currently in a +2.5 L. Currently in sinus rhythm. He remains on oral amiodarone. Lovenox for DVT prophylaxis. The patient is seen today 08/21/2021 in follow-up in the intensive care unit. He remains intubated on mechanical ventilator. Currently an assist-control mode. Rate of 28, tidal volume 350, FiO2 35% and a PEEP of 8. Morning blood gases revealed a PaO2 of 108, pCO2 42 and a pH of 7.31. He remains sedated on propofol at 75 mcg/kg/m. He has normal saline at 100 ML's per hour. He is being nourished with vital HPI at 36 ML's per hour. Chest x-ray can continues to show some improvement in the left lower lung. He remains on Zosyn. Endotracheal tube to be advanced 2 cm. Pro-calcitonin was 0.41. Blood culture reveals no growth. Sputum culture pending. White count 6.6. Hemoglobin 7.5. Platelets 163. Sodium 142. Potassium 4.2. Bicarb 21. BUN 39. Creatinine 1.26. Glucose 202. He is currently in a +3.2 L balance. He remains on DuoNeb inhalations, Pulmicort and Perforomist inhalations, IV Solu-Medrol. Antibiotics in the form of Zosyn. Lovenox for DVT prophylaxis. He remains hemodynamically stable. 08/22/2021, the patient is being seen for a follow-up. As mentioned, a 71-year-old male patient with advanced COPD with an FEV1 of 0.67 L benefit 1 of around 25% of predicted, with known history of chronic hypoxic respiratory failure maintained on oxygen at 3 L and currently the patient intubated on a mechanical ventilator. He is on propofol running at [place] micrograms per kilogram per minute. The patient is an assist-control mode of mechanical ventilation at the rate of 28 with a tidal volume of 350 and FiO2 of 30% with a PEEP of 8. Peak airway pressure is around 26-30. The patient has an auto PEEP which is in the order of 3 cm of water. The blood gases from today shows a pH of 7.30 with a pCO2 of 40 and pO2 of 116. His serum bicarbonate is at 20, and the patient could have been potentially a CO2 retainer with chronic metabolic alkalosis and this can be relative acidosis. The rest of the blood work shows a sodium level of 146, potassium of 3.7, BUN of 38 with a creatinine of 0.9. The white cell count is at 9 with a hemoglobin of 7.2. The patient is currently covered empirically with IV Zosyn. The chest x-ray from today is showing adequate positioning of the ET tube. The patient has bilateral lower lobe small pleural effusions. No major interval change compared to yesterday. He remains on DuoNeb nebulized treatments around the clock. Remains on IV Solu-Medrol and remains on IV Zosyn. The pro-calcitonin level was at 0.631 at a time of admission. Lactic acid level was nonelevated the time of admission. The patient has a flutter rhythm and currently is on oral amiodarone. He is also on anticoagulation with Lovenox 50 mg subcu every 12 hours under the recommendations of cardiology. Note that the patient also has chronic once and the wounds are multiple involving the right forearm where he is a skin tear, right calf ulcer, right willis, left thigh, left foot and left elbow and he also has a sacral wound stage II. None of these wounds are draining. The one on his right willis is covered with a rather thick scab which is extending in the area under his knee to the mid the patient is also on goal enteral feeding and the pa tient is currently on vital high protein right running at the rate of 36. 08/23 2021, the patient remains intubated on a mechanical ventilator. This morning, he remains on propofol running at 60 mcg/kg per minute. The patient is quite sensitive a mechanical ventilator. He remains on assist control mode at the rate of 40 with a tidal volume of 325 with an FiO2 of 30% and a PEEP of 6. Peak airway pressures around 25. His I:E ratio is 1-6. No significant rest or secretions. Blood gases showed a pH of 7.32 with a pCO2 of 43 and pO2 of 92. The patient remains on assist control mode of mechanical ventilation, volume cycle. The chest x-ray is not showing any acute abnormalities. ET tube is in a good location. There is hyperinflation consistent with COPD. There is also increased haziness in lung bases bilaterally compared to yesterday chest x-ray, possibly some effusion/pulmonary vessel congestion.. Note that the patient remains on IV Zosyn. His pro-calcitonin level at the time of admission was 0.631. His lactic acid level was nonelevated. He remains in atrial flutter rhythm with a controlled rate. No major changes in his condition since yesterday. He is receiving enteral feeding for nutritional support and currently he is on Busy Moos running good today shows 36. The patient is afebrile. The patient is hemodynamically stable. The patient is on no pressors for now. In terms of his cardiac status, the patient remains on oral amiodarone and Lopressor and the patient is also on Lovenox 50 mg subcu every 12 hours per cardiology as an anticoagulant. He does have multiple wounds throughout his lower extremity and upper extremity and the sacrum. He is extensively debilitated. His blood work from today showing a sodium level of 147, potassium of 4 Cardizem 121 with a BUN of 40 and a creatinine of 0.9. Blood sugar is 153. The white cell count is currently at 12.6 with a hemoglobin of 7.3 and a platelet count of 160s . Upon further inspection, the right leg wounds which has a large eschar is draining some purulent material and this needs to be further debrided. 08/24/2021, the patient remains on a mechanical ventilator. He received a sed at holiday yesterday. He went on for a total of 2.5 half hours. He open up his eyes and he was not following any commands and at that point, he was having some autonomic reactions and he was started back on sedation. This morning, he was on propofol at 50 mcg/kg per minute. He is in the process of getting another sedation holiday. He is off sedation for around half an hour. His opening up his eyes. His grimacing to painful stimulation. He is not following any commands. Does not move and is quite debilitated and extremely weak at this point in time. The patient remains on a mechanical ventilator on assist control mode at the rate of 14 with a tidal volume of 375 and FiO2 of 30% with a PEEP of 6. Peak airway pressures 27. Blood gases from today show a pH of 7.32 with a pCO2 of 44 and pO2 of 108. Chest x-ray from today is showing no significant interval change. ET tube remains in a good location. The patient has no evidence of any pneumothorax. There is hyperinflation regarding his underlying COPD. There is increased haziness in the lung bases bilaterally and a component of mild pulmonary vascular congestion. The tip of the orotracheal tube is around 3.5 cm above the josette. There is persistent patchy opacity in the left mid and lower lung hawk slightly more prominent on today's evaluation. Meanwhile, the patient's has a white cell count of 14.8. Hemoglobin is at 7.4. He had is a 41 with a creatinine of 0.8 and a sodium level of 142. He is afebrile for now. His pro-calcitonin level from 08/19/2021 was 0.41. His fluid balance over the past 24 hours is +2.2 L and the patient is currently on D5W at the rate of 100 mL an hour and the patient is receiving enteral feeding for nutritional support and he is receiving vital high protein at the rate of 29 mL an hour. Note that the patient's that have a component of hyponatremia yesterday and for that reason he was started on free water supplements. Gen. surgery was also consulted on this patient regarding his wounds and the large eschar over the right lower extremity and this needs to be debrided a later stage. My concern is that the patient is extremely debilitated and he may not be a good candidate for weaning and he may not reach a successful weaning off the mechanical ventilator. I have were discussed this with his . 08/25/2021, the patient is currently off propofol and the patient is currently on Precedex and this is being gradually weaned off as the patient is quite comfortable on a mechanical ventilator while being on Precedex. Precedex is currently running at a dose of 0.3 mcg/kg per minute and the patient seems to be sections a mechanical ventilator. On today's evaluation, he opens up his eyes. He does not follow any commands. He is not checking at this point in time. Note that he is on a low-dose of Precedex. He is on a mechanical ventilator on assist control mode at the rate of 14 with a tidal volume of 375 and FiO2 of 40% with a PEEP of 6. The blood gas showed pH of 7.32 with a pCO2 of 48 and pO2 of 79. The peak airway pressures nonelevated and the patient has equal and symmetrical breath sounds. The repeat chest x-ray was done today that showed i mprovement in the left sided perihilar pulmonary infiltrates. His improvement in the volume status. The infiltrate on the left his left prominent specially in the left lower lobe. ET tube remains in a good location. No significant orotracheal secretions. The patient remains on IV Zosyn for now. The cultures are essentially negative other than josette bacterium in the sputum which is probably a colonizer. He is afebrile. He is hemodynamically stable. Affect is slightly hypertensive. He is receiving enteral feeding for nutritional support without any major difficulties and he is on vital high protein at the rate of 44 mL an hour. In terms of his fluid balance, I put him on D5 water to yesterday regarding his hypernatremia. He was also started on free water supplements. The sodium level today is at 142 and he is currently on 0.9 at 20 mL an hour and the free water has been discontinued and the patient was given a dose of Lasix yesterday. Overall fluid balance since yesterday has been in the order of +2.2 L. He is afebrile. Hemodynamically stable. Pro-calcitonin level was 0.41. Of concern is his profound weakness and the patient is still not following commands despite having some degree of alertness and he opens up his eyes and looks around without any purpose. He does grimace to painful stimulation and withdraws to painful stimulation in all 4 extremities. The large wound over the right lower extremity is covered with a dry eschar. The edges of the wounds are draining purulent material. he has multiple unstageable wounds on his buttocks on multiple areas. 08/26/2021, the patient is on Precedex which is running at a dose of 0.5 mcg/kg per minute. He is more arousable compared to yesterday. His tract in and he did may be use his hands to grab upon demand. His eyes are open. He follows no commands at this point in time. He is breathing comfortably on a mechanical ventilator. He is hemodynamically stable. Is an assist-control mode at the rat e of 14 with a tidal volume of 375 mL with an FiO2 of 30% and a PEEP of 6. The blood gases from today showed a pH of 7.39 with a pCO2 of 43 and pO2 of 80. The patient had no chest x-ray done today. His blood work shows a stable white cell count of 15.8 with a hemoglobin of 7.5 and a platelet count of 211. Sodium is at 145. Bicarb is a 28 with a BUN of 52 and a creatinine of 0.9. The overall fluid balance over the past 24 hours has been had it hours a negative fluid balance. The patient is afebrile. The patient is hemodynamically stable. The patient is on no pressors. The patient is receiving enteral feeding for nutritional support and the patient is currently on vital high protein at the rate of 44 mL an hour. As mentioned, the patient has multiple wounds largest being his right lower extremity and another unstageable wounds in his buttocks. We have not debrided wounds yet and the procedure was canceled upon the family's request. Furthermore, the family opted to change his CODE STATUS to DO NOT RESUSCITATE DO NOT INTUBATE. No other significant events overnight. His car diac rhythm is sinus. He remains on bronchodilators. He remains on steroids. He remains on an empiric antibiotic coverage with IV Zosyn. 08/27/2021, the patient is being seen for a follow-up. He is awake. He is following some simple commands. He is not thing with his had an upon questioning, he stated that he wanted the tube out. He is on Precedex running at 0.5 mcg/kg/h. He is nicely sedated and is calm and comfortable. He has remained on a pressure support mode of mechanical ventilation throughout the day yesterday. He is currently on a pressure support of 5 and a PEEP of 6. The chest x-ray from today showing a hyperinflation and left basilar pleural effusion which is essentially small. ET tube remains in a good location. No other new acute abnormalities have been noted. The patient does not have any major respiratory secretions. Blood. This from today showed a pH of 7.37 with a pCO2 of 50 and pO2 of 170. Hemodynamically stable. He is on no pressors. His white cell count of 15 with a hemoglobin of 7.2. Same time, the patient has developed some mild hyperchloremic hypernatremia and this is despite his third spacing. His sodium level is up to 149. Cortisone and 16. BUN is 59 with a creatinine of 0.8. He is afebrile. He has multiple wounds as stated. He has become more edematous in all 4 extremities. He remains on bronchodilators, steroids, and is also on IV Zosyn. Overall fluid balance is -1.1 L over the past 24 hours. Examination of his wound revealed that the patient is developing a hematoma-like blisters in the medial aspect of his right thigh. The dry scabbed wounds over the lateral aspect of the right lower extremity is unchanged although it has become more wet as the patient is becoming edematous in all 4 extremities. 08/28 2021, the patient is extubated. With extubation process yesterday and the patient extubated successfully to a BiPAP. Note that he was also on Precedex for agitation and the Precedex is being gradually weaned off and currently is down to 0.3 mcg/kg/h. He is unresponsive. Extremely weak, barely able to move his fingers and toes. He is talking. He is breathing comfortably and is currently on oxygen at 2 L per minute nasal cannula. His mouth is dry and is also requesting for some milk. Family were at the bedside yesterday. The plan is a DNR/DNI CODE STATUS with no intentions 40 intubation. Llanos catheter is in place. Continues to have intermittent edema in all 4 extremities. The patient seems 40 mg of Lasix yesterday and the patient has been producing adequate amount of urine output. Nevertheless, the sodium level is up to 149 and the patient's current IV fluids are in the form of D5W at the rate of 50 mL an hour. The sodium level has not changed considerably since yesterday. The white cell count at 13.5. Hemoglobin is at 7.1. Potassium level is at 3.6. BUN is at 48 with a creatinine of 0.8. The wounds are essentially unchanged. He is afebrile. He is on empiric antibiotics and he is currently on IV Zosyn. Remains on bronchodilators. He remains on steroids. Extremely debilitated. Extubated this point in time. Communicating. At times angry. Objective - Vital Signs Vital signs: Vital Signs Temp 98.0 F 08/28/21 08:00 Pulse 80 08/28/21 10:00 Resp 15 08/28/21 10:00 BP 162/61 06/12/22 10:00 Pulse Ox 97 08/28/21 10:00 FiO2 35 08/28/21 10:26 Intake & Output 08/27/21 08/28/21 08/28/21 18:59 06:59 18:59 Intake Total 1026 326 123 Output Total 0 750 80 Balance -1034 -424 43 Weight 59.1 kg Intake: IV 276 276 23 Sodium Chloride 0.9% 1, 240 240 20 000 ml @ 20 mls/hr IV . Q24H GRACIE Rx#:[id number] pressure bag 36 36 3 Intake, IV Titration 450 50 100 Amount Dexmedetomidine/0.9% NaCl 100 100 (Pmx) 400 mcg In Empty Bag 1 bag @ 0.2 MCG/KG/HR 3.14 mls/hr IV .Q24H GRACIE Rx#:[id number] Dextrose 5% in Water 1, 350 50 000 ml @ 50 mls/hr IV . Q20H GRACIE Rx#:[id number] Tube Feeding 300 Output: Urine 2059 750 80 Other: Voiding Method Indwelling Catheter Indwelling Catheter # Bowel Movements 1 1 ABP, PAP, CO, CI - Last Documented Arterial Blood Pressure 164/38 - Exam GENERAL EXAM: Intubated, sedated cachectic-looking 71-year-old male. , The patient grimaces deep painful stimulation. Currently is on precedex. Extubated and currently on oxygen at 2 L HEAD: Normocephalic/atraumatic. EYES: Normal reaction of pupils, equal size. Conjunctiva pink, sclera white. NOSE: Clear with pink turbinates. THROAT: No erythema or exudates. NECK: No masses, no JVD, no thyroid enlargement, no adenopathy. CHEST: No chest wall deformity. Symmetrical expansion. LUNGS: Equal air entry with diffuse crackles, diminished breath sounds CVS: Regular rate and rhythm, normal S1 and S2, no gallops, no murmurs, no rubs ABDOMEN: Soft, nontender. No hepatosplenomegaly, normal bowel sounds, no guarding or rigidity. EXTREMITIES: No clubbing, there is edema in his upper extremities bilaterally, no cyanosis, 2+ pulses and upper and lower extremities. MUSCULOSKELETAL: Muscle strength and tone normal. SPINE: No scoliosis or deformity SKIN: No rashes, the patient has an large-sized eschar over the right lower extremity wound edges draining some purulent material, he also has all kinds of wounds and skin tears on his heels, and forearms and legs. Nevertheless, the dominant one is his right lower extremity and his coccyx which is unstageable at this point in time. CENTRAL NERVOUS SYSTEM: On Precedex, awake and alert and communicating. Tone is normal in all 4 extremities. Opens up his eyes spontaneously and tracks. Does not follow commands. Pupils are equal and reactive to light. Grimaces to painful stimulation in all 4 extremities. Profound weakness in all 4 extremities PSYCHIATRIC: Unable to assess - Labs CBC & Chem 7: 08/28/21 05:45 08/28/21 05:45 Labs: Abnormal Lab Results - Last 24 Hours (Table) 08/27/21 08/27/21 08/27/21 Range/Units 11:43 17:55 23:44 WBC (3.8-10.6) k/uL RBC (4.30-5.90) m/uL Hgb (13.0-17.5) gm/dL Hct (39.0-53.0) % MCHC (31.0-37.0) g/dL RDW (11.5-15.5) % Neutrophils # (1.3-7.7) k/uL Lymphocytes # (1.0-4.8) k/uL Sodium (137-145) mmol/L Chloride (98-107) mmol/L Carbon Dioxide (22-30) mmol/L BUN (9-20) mg/dL Glucose (74-99) mg/dL POC Glucose (mg/dL) 237 H 167 H 122 H (75-99) mg/dL Calcium (8.4-10.2) mg/dL 08/28/21 08/28/21 08/28/21 Range/Units 05:45 05:45 05:54 WBC 13.5 H (3.8-10.6) k/uL RBC 2.43 L (4.30-5.90) m/uL Hgb 7.1 L (13.0-17.5) gm/dL Hct 24.1 L (39.0-53.0) % MCHC 29.6 L (31.0-37.0) g/dL RDW 21.3 H (11.5-15.5) % Neutrophils # 13.0 H (1.3-7.7) k/uL Lymphocytes # 0.2 L (1.0-4.8) k/uL Sodium 149 H (137-145) mmol/L Chloride 114 H (98-107) mmol/L Carbon Dioxide 32 H (22-30) mmol/L BUN 48 H (9-20) mg/dL Glucose 140 H (74-99) mg/dL POC Glucose (mg/dL) 140 H (75-99) mg/dL Calcium 7.6 L (8.4-10.2) mg/dL Assessment and Plan Plan: 1 Acute exacerbation of COPD with acute hypoxemic respiratory failure requiring intubation and mechanical ventilation on 08/19/2021 chest x-ray showing bilateral lower lobe infiltrates/effusions, in addition to left perihilar pulmonary infiltrate. The patient was extubated on 08/27/2021 and the patient was extubated initially to BiPAP and currently the patient on 2 L of O2 nasal cannula. The patient has advanced end-stage COPD with an FEV1 of 25% of predicted. Is extremely debilitated. He is profoundly weak and motivated 6 quite extensive and all 4 extremity is and the patient has advanced wounds throughout his body. CODE STATUS has been changed to DNR/DNI and there are no intentions to reintubate if the patient fails and develops any further respiratory insufficiency. Remains on IV Zosyn. The patient is on bronchodilators. The patient is on steroids. Seems to be quite comfortable and he was taken off the BiPAP and he is also on Precedex which is gradually being weaned off. Nevertheless, his performance and functional status is extremely poor. 2 A flutter with RVR, currently in sinus rhythm, on oral amiodarone, Lovenox 3 History of severe end-stage COPD with baseline FEV1 of 25% of predicted 4 Chronic hypoxic respiratory failure related to the above 5 Former smoker 6 Nonhealing bilateral lower extremity ulcers 7 Elevated pro-calcitonin level, rule out possibility of infection, currently on Zosyn 8 Mildly elevated d-dimer, with no CT evidence of pulmonary embolism 9 Focal scarring versus spiculated nodule in the right upper lobe, will need outpatient follow-up, and possible PET scan 10 Chronic cachexia 11 Hypertension 12 Hyperlipidemia 13 Hypothyroidism 14 Osteoarthritis 15 hyperchloremic hypernatremia, mild, improved with free water supplements 15 multiple wounds with a large eschar over the right lower extremity and the patient has very stages of skin wounds throughout his body in addition to skin tears and a coccygeal wound , unstageable Plan: wean Precedex BiPAP on and off and for the most part the patient's cousin oxygen on nasal cannula 2 L Chest x-ray and blood gases were noted Give Lasix 40 mg IV, any to the D5 water to 100 mL an hour Put the patient on D5 water at the rate of 50 Remains on Zosyn, DuoNeb inhalations Continue Pulmicort and Perforomist inhalations, IV Solu-Medrol Overall prognosis remains quite guarded Continue enteral feeding for nutritional support Continue thyroid hormone replacement Continue amiodarone Hold Lovenox as the patient has developed another hematoma to this wound in the medial aspect of the right thigh Condition is critical. Prognosis poor. The patient likely will not survive extubation as the patient has been extremely weak and debilitated with no abilities to maintain airway patency and the high risk for respiratory insufficiency, failure of a later stage. His CODE STATUS is DNR/DNI. No plans to be intubated should the patient fail extubation trial. No plans to do any wound debridement. She will be essentially supportive at this point in time. Critically care evaluation was done and more than 30 minutes. Time with Patient: Greater than 30
[2021-08-28] MEDS: PIPERACILLIN-TAZOBACTAM 3.375 GM in SODIUM CHLORIDE 0.9% 100 ML IVPB SCH ×2 (10:59→17:30)
[2021-08-28] MEDS: METOPROLOL TARTRATE 50 MG TAB PO SCH ×2 (10:59→20:41)
[2021-08-28 11:37] LABS: Glucose,Whole Blood 147 mg/dL (75-99)
--- NOTE | 2021-08-28 11:47 | P.PN ---
Subjective This is a pleasant 71 years old male with past medical history of COPD, Hyperlipidemia, Hypertension, Osteoarthritis , Metabolic Encaphalopathy, Acute kidney failure with tubular necrosis, Cachexia, Chronic non-pressure ulcer of back, Rhabdomylosis was sent from [facility] with increased weakness and lethargy over the last 2-3days Patient is poor historian but as per staff with his he has been a jail for the last 1-2 months and his been confused. pt looks cachectic and very frail, he is oriented to time ,place and person , but has no denture, his voice is muffled because of that he is been complaining from dyspnea and chest pain which is mild in the middle nonradiating and associated with very little cough. He says his shortness of breath was worse over the last 1 day and a half. Denies any abdominal pain or vomiting or diarrhea but he has low appetite. He denies any choking or swallow problem but he has no denture so we'll check for swallow evaluation Patient looks tachypneic with bilateral chest with some limited air entry but no ricardo wheezing. Patient states that he quit smoking about 10 years ago, used to smoke for more than 10 years. No alcohol or illicit drugs. He has multiple pressure ulcers he has one large pressure ulcers on the right leg laterally with drying scab Or any dressing . Also has multiple pressure ulcers with black eschar on both heels and left foot. The surrounding skin looks intact with no redness or swelling. On admission he was slightly tachypneic on 20, afebrile and heart rate was 84 and blood pressure 141/64, however overnight his blood pressure dropped with sy stolic 90s to 100, currently his blood pressure 104/68, also became tachycardic with heart rate 04/17/2049. He was saturating 9920% on 2-3 L oxygen via nasal cannula. He is mildly hypothermic at 97.2 His WBC is elevated at 17.7. Hemoglobin is 10.0. Platelet count 258. INR 0.9. BUN is 32 and creatinine 0.9. Troponin is 0.02 and less than 0.01. Glucose was on the low side 57 on admission and currently is 201. Urinalysis showed 1+ protein with no evidence of infection. Patient started on steroids and got a breathing treatment, IV fluids and started on amiodarone drips and Lovenox in the emergency room. D-dimer was elevated, therefore CTA of the chest was done which showed negative for pulmonary embolism, emphysematous changes with small pleural effusion. Also there is focal scattered versus speculated nodule in the right upper lobe we ordered stat CT of the brain and CT of the chest to rule out pulmonary embolism given his hypotension, tachycardia and tachypnea with elevated d-dimer. Also with mild hypoxia suspected. However patient confused per staff when he came in and could not be started on heparin drip before we rule out intracranial bleed before CT of the brain is also ordered with CT of the chest. Both tests came back negative 08/24/2021 Patient continues to be closely monitored in the medical ICU and maintained on mechanical vent. Chest x-ray shows persistent patchy opacification the left mid and lower lung zone slightly more prominent today with no progressive right pulmonary consolidation and grossly stable pleural effusions and also incidental finding of NG tube that needs further advancing into the stomach. Patient is continued on enteral nutrition via NG. Patient remains on mechanical vent with an FiO2 of 30% and PEEP is 6. Patient also continues on D5 in water and sodium is 142 today with a potassium of 3.9, creatinine is 0.87. Hemoglobin is 7.4 and WBC is 14.8 which is on an upward trend. Patient is afebrile. Patient continues on breathing inhalational treatments along with IV steroids 60 every 6 and IV Zosyn and is sedated with propofol at this time. Patient is tentatively scheduled for debridement of the right willis today. 08/25/2021 Patient is seen in follow-up in the ICU with multiple medical consultations following. Patient continues on mechanical vent with an FiO2 of 30% and PEEP is 6. Patient is currently off sedation and on Precedex low-dose. Attempting CPAP trials per pulmonary. Contemplating possible tracheostomy family continues to wish for the patient to remain full code. Patient is high risk for remaining on mechanical ventilation given his extensive comorbidities. Per nursing staff patient was not following commands although on exam right are asked patient to nod head yes or no is having any pain and patient nodded had no. Will then look around the room and stare off at the coats. Patient is extremely cachectic and ill-appearing and lethargic. Pulmonary following along with general surgery and plan is for possible debridement of that right willis in the a.m. Chest x-ray shows less prominent infiltration the left lower lung zone and unchanged remainder of the lungs. Patient also continues on breathing inhalational treatments along with IV steroids and IV Zosyn. Recommend electrolyte replacement per protocol and were within normal limits today. WBC mildly elevated and trending upward at 15.2, hemoglobin is 7.8. Patient is afebrile. 08/26/2021 Patient continues in the ICU and currently off pressor support. Patient is on low dose precedex and assessing for weaning parameters and currently maintained on cpap assist mode with 5/5 settings. When on vent Fio2 is 30% with a peep of 6. Patient family has made the patient no code and has cancelled the debridement of the right willis wound with general surgery. Possible extubation in the near future and no plans for reintubation. Patient WBC trending down and procalcitonin is 0.07 and maintained on IV abx with ID following. Sputum likely colonization. Overall prognosis is poor and guarded. Patient is afebrile 08/27/2021 Patient seen on follow-up in the ICU, he is currently intubated on mechanical ventilation, pressure support of 5, PEEP of 6 ABG from today shows pH 7.37, pCO2 50, pO2 170. He is currently on Precedex, but is alert opening his eyes, however today shows his hypernatremia[place] [address] receiving IV h ydration with D5 water. Currently hemodynamically stable, no fevers. Continues antimicrobial therapy of Zosyn as coronary bacterium growing in the sputum is continued on systemic steroids. Stable creatinine 0.87, blood sugars been running in the 200s he is on sliding scale coverage. 08/28/2021 Patient is extubated patient has diminished breath sounds but not wheezing at this time. Constitutional: Denied any fatigue denied any fever. Cardio vascular: denied any chest pain, palpitations Gastrointestinal denied any nausea vomiting Pulmonary: Denied any shortness of breath cough Neurologic denied any new focal deficits All inpatient medications were reviewed and appropriate changes in these medications as dictated in the interval history and assessment and plan. Physical Exam: GENERAL: Patient is alert and extubated HEENT: Pupils are round and equally reacting to light. EOMI. No scleral icterus. No conjunctival pallor. Normocephalic, atraumatic. No pharyngeal erythema. No thyromegaly. CARDIOVASCULAR: S1 and S2 present. No murmurs, rubs, or gallops. PULMONARY: Wheezing improved diminished air entry into bilateral lung hawk ABDOMEN: Soft, nontender, nondistended, normoactive bowel sounds. No palpable organomegaly. MUSCULOSKELETAL: No joint swelling or deformity. EXTREMITIES: No cyanosis, clubbing, or pedal edema. Multiple bilateral leg ulcers including both heels and right lateral willis with large scabbing noted over entire surface of the wound. some surrounding redness noted and continued purulent drainage noted from the willis. No evidence of overt surrounding ce llulitis NEUROLOGICAL: On light sedation Precedex, opens eyes spontaneously Gross neurological examination did not reveal any focal deficits. Unable to completely assess as patient continues to be lethargic and on precedex and not following all commands although asked patient to nod yes or no if in pain and patient nodded no twice on 2 separate occasions of asking this SKIN: No rashes. no petechiae. Assessment: Acute hypoxic respiratory failure requiring intubation and mechanical ventilatio n secondary to End stage COPD COPD with exacerbation Multiple pressure ulcers with suspected infection Hypovolemic hyponatremia: Patient is receiving D5 water at this time it 100 mL/h Aflutter with RVR, currently rate controlled Moderate calorie malnutrition with a BMI of 21.1 multiple leg wounds : surgery is following for debridement, patient is presently on Zosyn and infectious disease is following the patient wound care is following the patient focal scar versus speculated nodule in the right upper lobe, will need outpatient PET scan History of hypertension, currently he is hypotensive Hyperlipidemia Hypernatremia Hypokalemia Dehydration Possible dementia History of osteoarthritis History of chronic nonpressure ulcer of the back DVT prophylaxis: Subcutaneous Lovenox GI Prophylaxis: Pepcid No code Objective - Vital Signs Vital signs: Vital Signs Temp 98.0 F 08/28/21 08:00 Pulse 75 08/28/21 11:44 Resp 15 08/28/21 10:00 BP 162/61 08/28/21 10:00 Pulse Ox 97 08/28/21 10:00 FiO2 35 08/28/21 10:26 Intake & Output 08/27/21 08/28/21 08/28/21 18:59 06:59 18:59 Intake Total 1026 326 615 Output Total 8829 640 330 Balance -1034 -424 285 Weight 59.1 kg Intake: IV 276 212 515 Dextrose 5% in Water 1, 400 000 ml @ 100 mls/hr IV . Q10H [facility] Rx#:[id number] Sodium Chloride 0.9% 1, 240 240 100 000 ml @ 20 mls/hr IV . Q24H [facility] Rx#:[id number] pressure bag 36 36 15 Intake, IV Titration 450 50 100 Amount Dexmedetomidine/0.9% NaCl 100 100 (Pmx) 400 mcg In Empty Bag 1 bag @ 0.2 MCG/KG/HR 3.14 mls/hr IV .Q24H [facility] Rx#:[id number] Dextrose 5% in Water 1, 350 50 000 ml @ 100 mls/hr IV . Q10H [facility] Rx#:[id number] Tube Feeding 300 Output: Urine 2060 750 330 Other: Voiding Method Indwelling Catheter Indwelling Catheter # Bowel Movements 1 1 ABP, PAP, CO, CI - Last Documented Arterial Blood Pressure 164/38 - Labs CBC & Chem 7: 08/28/21 05:45 08/28/21 05:45 Labs: Abnormal Lab Results - Last 24 Hours (Table) 08/27/21 08/27/21 08/27/21 Range/Units 11:43 17:55 23:44 WBC (3.8-10.6) k/uL RBC (4.30-5.90) m/uL Hgb (13.0-17.5) gm/dL Hct (39.0-53.0) % MCHC (31.0-37.0) g/dL RDW (11.5-15.5) % Neutrophils # (1.3-7.7) k/uL Lymphocytes # (1.0-4.8) k/uL Sodium (137-145) mmol/L Chloride (98-107) mmol/L Carbon Dioxide (22-30) mmol/L BUN (9-20) mg/dL Glucose (74-99) mg/dL POC Glucose (mg/dL) 237 H 167 H 122 H (75-99) mg/dL Calcium (8.4-10.2) mg/dL 08/28/21 08/28/21 08/28/21 Range/Units 05:45 05:45 05:54 WBC 13.5 H (3.8-10.6) k/uL RBC 2.43 L (4.30-5.90) m/uL Hgb 7.1 L (13.0-17.5) gm/dL Hct 24.1 L (39.0-53.0) % MCHC 29.6 L (31.0-37.0) g/dL RDW 21.3 H (11.5-15.5) % Neutrophils # 13.0 H (1.3-7.7) k/uL Lymphocytes # 0.2 L (1.0-4.8) k/uL Sodium 149 H (137-145) mmol/L Chloride 114 H (98-107) mmol/L Carbon Dioxide 32 H (22-30) mmol/L BUN 48 H (9-20) mg/dL Glucose 140 H (74-99) mg/dL POC Glucose (mg/dL) 140 H (75-99) mg/dL Calcium 7.6 L (8.4-10.2) mg/dL 08/28/21 Range/Units 11:35 WBC (3.8-10.6) k/uL RBC (4.30-5.90) m/uL Hgb (13.0-17.5) gm/dL Hct (39.0-53.0) % MCHC (31.0-37.0) g/dL RDW (11.5-15.5) % Neutrophils # (1.3-7.7) k/uL Lymphocytes # (1.0-4.8) k/uL Sodium (137-145) mmol/L Chloride (98-107) mmol/L Carbon Dioxide (22-30) mmol/L BUN (9-20) mg/dL Glucose (74-99) mg/dL POC Glucose (mg/dL) 147 H (75-99) mg/dL Calcium (8.4-10.2) mg/dL
--- NOTE | 2021-08-28 11:53 | P.PN ---
Subjective Progress Note Date: 08/28/21 The patient is 71-year-old male who is currently admitted to the hospital with hypoxic respiratory failure secondary to COPD exacerbation. Cardiology was consulted for atrial fibrillation. The patient received IV bolus of amiodarone and is currently on 400 mg oral. Echocardiogram revealed LV function of 50% with moderate aortic stenosis, moderate aortic insufficiency, and moderate mitral regurgitation. He was extubated on August 27 on Precedex. The patient was examined sitting comfortably in the ICU bed on nasal cannula. He is following simple commands. GENERAL: Ill-appearing. Alert and oriented to self. NECK: Supple without JVD or thyromegaly. LUNGS: Breath sounds diminished to auscultation bilaterally. Respiration equal and unlabored. No wheezes, rales or rhonchi. HEART: Regular rate and rhythm. Systolic ejection murmur. No rubs or gallops. S1 and S2 heard. EXTREMITIES: Limited range of motion, generalized edema. Wound noted on right lateral lower extremity. No clubbing or cyanosis. Peripheral pulses intact. VITALS: Blood pressure 164/38, pulse 80, respiratory rate 16, SpO2 97% on 2 L nasal cannula TELEMETRY: Sinus rhythm in the 70s. LABS: WBC 13.5, hemoglobin 7.1, hematocrit 24.1, platelet 205, sodium 149, potassium 3.6, BUN 48, creatinine 0.83 IMPRESSION: Atrial flutter/Atrial fibrillation, currently on amiodarone Hypertension, uncontrolled Valvular heart disease COPD exacerbation Anemia PLAN: Start losartan 25mg for continued hypertension now that he is extubated Transition to oral anticoagulation Further recommendations to be based on clinical course. I am dictating on behalf of Dr John Hutchison's history/physical and assessment/plan. Objective - Vital Signs Vital signs: Vital Signs Temp 98.0 F 08/28/21 08:00 Pulse 75 08/28/21 11:44 Resp 15 08/28/21 10:00 BP 162/61 08/28/21 10:00 Pulse Ox 97 08/28/21 10:00 FiO2 35 08/28/21 10:26 Intake & Output 08/27/21 08/28/21 08/28/21 18:59 06:59 18:59 Intake Total 1026 326 615 Output Total 4449 509 330 Balance -1034 -424 285 Weight 59.1 kg Intake: IV 276 276 515 Dextrose 5% in Water 1, 400 000 ml @ 100 mls/hr IV . Q10H [facility] Rx#:[id number] Sodium Chloride 0.9% 1, 240 240 100 000 ml @ 20 mls/hr IV . Q24H [facility] Rx#:[id number] pressure bag 36 36 15 Intake, IV Titration 450 50 100 Amount Dexmedetomidine/0.9% NaCl 100 100 (Pmx) 400 mcg In Empty Bag 1 bag @ 0.2 MCG/KG/HR 3.14 mls/hr IV .Q24H [facility] Rx#:[id number] Dextrose 5% in Water 1, 350 50 000 ml @ 100 mls/hr IV . Q10H [facility] Rx#:[id number] Tube Feeding 300 Output: Urine 2060 750 330 Other: Voiding Method Indwelling Catheter Indwelling Catheter # Bowel Movements 1 1 ABP, PAP, CO, CI - Last Documented Arterial Blood Pressure 164/38 - Labs CBC & Chem 7: 08/28/21 05:45 08/28/21 05:45 Labs: Abnormal Lab Results - Last 24 Hours (Table) 08/27/21 08/27/21 08/28/21 Range/Units 17:55 23:44 05:45 WBC 13.5 H (3.8-10.6) k/uL RBC 2.43 L (4.30-5.90) m/uL Hgb 7.1 L (13.0-17.5) gm/dL Hct 24.1 L (39.0-53.0) % MCHC 29.6 L (31.0-37.0) g/dL RDW 21.3 H (11.5-15.5) % Neutrophils # 13.0 H (1.3-7.7) k/uL Lymphocytes # 0.2 L (1.0-4.8) k/uL Sodium (137-145) mmol/L Chloride (98-107) mmol/L Carbon Dioxide (22-30) mmol/L BUN (9-20) mg/dL Glucose (74-99) mg/dL POC Glucose (mg/dL) 167 H 122 H (75-99) mg/dL Calcium (8.4-10.2) mg/dL 08/28/21 08/28/21 08/28/21 Range/Units 05:45 05:54 11:35 WBC (3.8-10.6) k/uL RBC (4.30-5.90) m/uL Hgb (13.0-17.5) gm/dL Hct (39.0-53.0) % MCHC (31.0-37.0) g/dL RDW (11.5-15.5) % Neutrophils # (1.3-7.7) k/uL Lymphocytes # (1.0-4.8) k/uL Sodium 149 H (137-145) mmol/L Chloride 114 H (98-107) mmol/L Carbon Dioxide 32 H (22-30) mmol/L BUN 48 H (9-20) mg/dL Glucose 140 H (74-99) mg/dL POC Glucose (mg/dL) 140 H 147 H (75-99) mg/dL Calcium 7.6 L (8.4-10.2) mg/dL
[2021-08-28] MEDS: DEXMEDETOMIDINE/0.9% NACL(PMX) 400 MCG in EMPTY BAG 1 BAG IV SCH (15:21)
[2021-08-28 17:25] LABS: Glucose,Whole Blood 258 mg/dL (75-99)
[2021-08-28] MEDS ORDERED: LOSARTAN 25 MG TAB PO SCH (21:00)
[2021-08-28 23:55] LABS: Glucose,Whole Blood 210 mg/dL (75-99)
[2021-08-29] MEDS: PIPERACILLIN-TAZOBACTAM 3.375 GM in SODIUM CHLORIDE 0.9% 100 ML IVPB SCH ×4 (00:01→23:49)
[2021-08-29] MEDS: DEXTROSE 5% IN WATER 1,000 ML IV SCH ×3 (04:53→23:40)
[2021-08-29 05:53] LABS: Glucose,Whole Blood 121 mg/dL (75-99)
[2021-08-29] MEDS: INSULIN ASPART (NovoLOG) 100 UNIT/ML VIAL SQ SCH ×4 (06:11→23:42)
[2021-08-29] MEDS: methylPREDNISolone SOD SUCCI 125 MG/2 ML VIAL IV SCH ×2 (06:17→11:34)
[2021-08-29] MEDS: LEVOTHYROXINE 50 MCG TAB PO SCH (06:18)
[2021-08-29] MEDS: BUDESONIDE 1 MG/2 ML NEBU INHALATION SCH ×2 (07:12→20:51)
[2021-08-29] MEDS: IPRATROPIUM-ALBUTEROL 3 ML NEB INHALATION SCH ×4 (07:12→20:51)
[2021-08-29] MEDS: FORMOTEROL FUMARATE 20 MCG/2 ML NEBU INHALATION SCH ×2 (07:12→20:51)
[2021-08-29 07:34] LABS: Anisocytosis Moderate; Basophils % (A) 0 %; Eosinophils # (A) 0.1 k/uL (0-0.7); Eosinophils % (A) 1 %; Hypochromasia Slight; Lymphocytes # (A) 0.3 k/uL (1.0-4.8); Lymphocytes % (A) 2 %; MCHC 31.9 g/dL (31.0-37.0); Macrocytosis Moderate; Mean Platelet Volume 11.6; Monocytes # (A) 0.3 k/uL (0-1.0); Monocytes % (A) 2 %; Neutrophils # (A) 14.5 k/uL (1.3-7.7); Neutrophils % (A) 95 %; Platelet Count 246 k/uL (150-450); RBC 2.26 m/uL (4.30-5.90); RDW 22.3 % (11.5-15.5); WBC 15.2 k/uL (3.8-10.6)
[2021-08-29 08:40] LABS: African American GFR (CKD) >90 (>60 ml/min/1.73 sqM); Anion Gap 5 mmol/L; Blood Urea Nitrogen 38 mg/dL (9-20); Calcium 7.8 mg/dL (8.4-10.2); Carbon Dioxide 27 mmol/L (22-30); Chloride 112 mmol/L (98-107); Glucose 126 mg/dL (74-99); Non-African American GFR(CKD) >90 (>60 ml/min/1.73 sqM); Potassium 4.1 mmol/L (3.5-5.1); Sodium 144 mmol/L (137-145)
[2021-08-29] MEDS: METOPROLOL TARTRATE 50 MG TAB PO SCH ×2 (09:29→20:01)
[2021-08-29] MEDS: amLODIPine 10 MG TAB PO SCH (09:29)
[2021-08-29] MEDS: AMIODARONE 200 MG TAB PO SCH ×2 (09:29→20:01)
[2021-08-29] MEDS: FAMOTIDINE 20 MG TAB PO SCH (09:29)
--- NOTE | 2021-08-29 10:18 | P.PN ---
Subjective Patient is doing better. He is in sinus rhythm. On amiodarone 200 twice a day. Blood pressure is poorly controlled. I will increase the dose of losartan to 50 mg daily. Continue the Lopressor 100 twice a day Norvasc 10 daily On exam comfortable at rest heart rate is 87 bpm blood pressure is 160-60 respirators 18 O2 sat is 97% on 2 L there is a jugular venous distention chest exam reveals diminished air entry bilaterally heart exam vessel second heart sounds ejection systolic murmur in the aortic area abdomen is soft examination extremities reveals 1+ pitting edema Labs show a hemoglobin of 7 platelet count is 246 potassium is 4.1 creatinine is 0.75 Assessment and plan: Hypoxic respiratory failure secondary to COPD exacerbation Atrial fibrillation Hypertension Moderate aortic stenosis and regurgitation I will increase the dose of losartan secondary to uncontrolled hypertension continue rest of his medications Patient is not on oral anticoagulant because of concerns with anemia Objective - Vital Signs Vital signs: Vital Signs Temp 98.1 F 08/29/21 08:00 Pulse 87 08/29/21 09:00 Resp 24 08/29/21 09:00 BP 163/60 08/29/21 09:00 Pulse Ox 97 08/29/21 09:00 FiO2 35 08/28/21 10:26 Intake & Output 08/28/21 08/29/21 08/29/21 18:59 06:59 18:59 Intake Total 7427.014 8543.988 460 Output Total 2004 595 130 Balance -533.778 960.988 330 Weight 59.9 kg Intake: IV 1364 1440 360 Dextrose 5% in Water 1, 1100 1200 300 000 ml @ 100 mls/hr IV . Q10H [facility] Rx#:[id number] Sodium Chloride 0.9% 1, 240 240 60 000 ml @ 20 mls/hr IV . Q24H [facility] Rx#:[id number] pressure bag 24 Intake, IV Titration 107.222 115.988 100 Amount Dexmedetomidine/0.9% NaCl 107.222 15.988 (Pmx) 400 mcg In Empty Bag 1 bag @ 0.2 MCG/KG/HR 3.14 mls/hr IV .Q24H [facility] Rx#:[id number] Piperacillin-Tazobactam 3 100 100 .375 gm In Sodium Chloride 0.9% 100 ml @ 25 mls/hr IVPB Q8HR [facility] Rx# :[id number] Output: Urine 2004 595 130 Other: Voiding Method Indwelling Catheter Indwelling Catheter Indwelling Catheter # Bowel Movements 1 ABP, PAP, CO, CI - Last Documented Arterial Blood Pressure 174/34 - Labs CBC & Chem 7: 08/29/21 06:45 08/29/21 06:45 Labs: Abnormal Lab Results - Last 24 Hours (Table) 08/28/21 08/28/21 08/28/21 Range/Units 11:35 17:24 23:49 WBC (3.8-10.6) k/uL RBC (4.30-5.90) m/uL Hgb (13.0-17.5) gm/dL Hct (39.0-53.0) % RDW (11.5-15.5) % Neutrophils # (1.3-7.7) k/uL Lymphocytes # (1.0-4.8) k/uL Chloride (98-107) mmol/L BUN (9-20) mg/dL Glucose (74-99) mg/dL POC Glucose (mg/dL) 147 H 258 H 210 H (75-99) mg/dL Calcium (8.4-10.2) mg/dL 08/29/21 08/29/21 08/29/21 Range/Units 05:51 06:45 06:45 WBC 15.2 H (3.8-10.6) k/uL RBC 2.26 L (4.30-5.90) m/uL Hgb 7.0 L (13.0-17.5) gm/dL Hct 22.0 L (39.0-53.0) % RDW 22.3 H (11.5-15.5) % Neutrophils # 14.5 H (1.3-7.7) k/uL Lymphocytes # 0.3 L (1.0-4.8) k/uL Chloride 112 H (98-107) mmol/L BUN 38 H (9-20) mg/dL Glucose 126 H (74-99) mg/dL POC Glucose (mg/dL) 121 H (75-99) mg/dL Calcium 7.8 L (8.4-10.2) mg/dL
[2021-08-29 11:22] LABS: Glucose,Whole Blood 209 mg/dL (75-99)
[2021-08-29 11:35] LABS: Glucose,Whole Blood 203 mg/dL (75-99)
--- NOTE | 2021-08-29 11:55 | P.PN ---
Subjective Progress Note Date: 08/29/21 Principal diagnosis: Shortness of breath 71-year-old male patient with known history of severe end-stage COPD, with a baseline FEV1 of 0.67 L or 25% predicted as November 2020 PFT, on home oxygen patient usually wears 3 L of oxygen on a regular basis, ex-smoker, chronic dyspnea, hypertension, hyperlipidemia, osteoarthritis, cachexia, chronic nonhealing ulcers involving bilateral feet. Patient was recently required hospitalization in the last several weeks at the [facility] when he required mechanical ventilator support. Patient follows with Dr. Hall in the pulmonary clinic. On 08/17/2021 patient presents to the emergency department from a detention because of weakness and fatigue. Patient was also complaining of some chest discomfort in the morning, and shortness of breath. Denied any recent fever or chills. No worsening cough wheezing or phlegm production. No hemoptysis. Chest x-ray showed small bilateral pleural effusions with minimal subsegmental atelectasis at the left base. EKG showed sinus rhythm, with minimal ST depression in inferior leads, and T-wave inversion in aVL and LVH. Laboratory evaluation showed elevated white count of 17.7, hemoglobin of 10.0, platelet count of 285, d-dimer was mildly elevated to 0.97, sodium is 144, potassium is 5.1, BUN of 32, creatinine 0.69, 2 sets of troponins were negative at 0.020, less than 0.012, pro-calcitonin level was elevated to 0.50, TSH was within normal limits, LFTs were within normal limits, plasma lactic acid was 1.3 urinalysis without sign of infection. CT angiogram of the chest showed no evidence of acute pulmonary embolism, and moderate emphysematous change with small size right greater than left pleural effusions. There was focal scarring versus spiculated nodule in the posterior right upper lobe which is new from 2014 study with recommendation of follow-up PET scan. Patient is currently on 3 L of oxygen pulse ox is 99%, he is very short of breath at rest, but appears to be in no acute distress, he is able to answer some simple questions, but he does have conversational dyspnea as well. Afebrile, he is tachycardic, cardiology has been consulted for SVT. Patient is on amiodarone infusion at 1 mg/m for rate control, he is on empiric antibiotics and breathing treatments and IV steroids. The patient is seen today 08/19/2021 in follow-up on the selective care unit. Upon arrival the patient was quite obtunded and unarousable and breathing shallow. He was immediately transferred to the intensive care unit requiring emergent intubation and placed on the mechanical ventilator. Initial settings included assist control mode with a rate of 20, tidal volume 350, FiO2 100% and a PEEP of 5. Left subclavian triple-lumen catheter place. Right radial arterial line placed. Arterial blood gases revealed a PaO2 of 124, pCO2 of 65 and a pH of 7.19. His respiratory rate was increased to 28. PEEP increased to 8. Plans to titrate down the FiO2. White count 11.6. Hemoglobin 8.6. Platelets 256. Sodium 143. Potassium 4.9. Chloride 113. BUN 44. Creatinine 1.42. Glucose 134. AST 42. ALT 195. Albumin 2.8. He is currently sedated on propofol at 50 mcg/kg/m. To be given 1-2 L of fluid resuscitation. Chest x-ray reveals no evidence of pneumothorax, satisfactory positioning of the endotracheal and orogastric tubes. There is worsening left lung edema/infiltrates. Improved aeration of the right lung base. Augmentin discontinued. Initiated on Zosyn. Pro-calcitonin pending. Culture revealing no growth to date. He was initially in atrial fibrillation requiring amiodarone. He is continued on bronchodilators, IV Solu-Medrol. He remains in a positive balance. The patient is seen today 08/20/2021 in follow-up in the intensive care unit. He remains intubated on mechanical ventilator. Still notices control mode with a rate of 28, attentive on 350, FiO2 40% and a PEEP of 8. Morning blood gases revealed a PaO2 of 113, pCO2 42, pH 7.32. He remains sedated on propofol at 75 mcg/kg/m. He has normal saline running at 100 ML's per hour. He is being nourished with vital HPI at 20 ML's per hour with a goal of 36. He is on antibiotics in the form of Zosyn. He is continued on DuoNeb inhalations, Pu lmicort and Perforomist inhalations, IV Solu-Medrol. Chest x-ray continues to show mildly improved aeration in the left lung with persistent multifocal airspace opacities. Small bilateral effusions left greater than right. Evidence of COPD. Endotracheal, nasogastric tubes and left central venous catheter all in appropriate position. Blood culture reveals no growth to date. Sputum cultures pending. White count 8.3. Hemoglobin 7.1. Platelets 188. Sodium 143. Potassium 4.8. Chloride 116. Bicarb 21. BUN 44. Creatinine 1.44. Glucose 156. Currently in a +2.5 L. Currently in sinus rhythm. He remains on oral amiodarone. Lovenox for DVT prophylaxis. The patient is seen today 08/21/2021 in follow-up in the intensive care unit. He remains intubated on mechanical ventilator. Currently an assist-control mode. Rate of 28, tidal volume 350, FiO2 35% and a PEEP of 8. Morning blood gases revealed a PaO2 of 108, pCO2 42 and a pH of 7.31. He remains sedated on propofol at 75 mcg/kg/m. He has normal saline at 100 ML's per hour. He is being nourished with vital HPI at 36 ML's per hour. Chest x-ray can continues to show some improvement in the left lower lung. He remains on Zosyn. Endotracheal tube to be advanced 2 cm. Pro-calcitonin was 0.41. Blood culture reveals no growth. Sputum culture pending. White count 6.6. Hemoglobin 7.5. Platelets 163. Sodium 142. Potassium 4.2. Bicarb 21. BUN 39. Creatinine 1.26. Glucose 202. He is currently in a +3.2 L balance. He remains on DuoNeb inhalations, Pulmicort and Perforomist inhalations, IV Solu-Medrol. Antibiotics in the form of Zosyn. Lovenox for DVT prophylaxis. He remains hemodynamically stable. 08/22/2021, the patient is being seen for a follow-up. As mentioned, a 71-year-old male patient with advanced COPD with an FEV1 of 0.67 L benefit 1 of around 25% of predicted, with known history of chronic hypoxic respiratory failure maintained on oxygen at 3 L and currently the patient intubated on a mechanical ventilator. He is on propofol running at [place] micrograms per kilogram per minute. The patient is an assist-control mode of mechanical ventilation at the rate of 28 with a tidal volume of 350 and FiO2 of 30% with a PEEP of 8. Peak airway pressure is around 26-30. The patient has an auto PEEP which is in the order of 3 cm of water. The blood gases from today shows a pH of 7.30 with a pCO2 of 40 and pO2 of 116. His serum bicarbonate is at 20, and the patient could have been potentially a CO2 retainer with chronic metabolic alkalosis and this can be relative acidosis. The rest of the blood work shows a sodium level of 146, potassium of 3.7, BUN of 38 with a creatinine of 0.9. The white cell count is at 9 with a hemoglobin of 7.2. The patient is currently covered empirically with IV Zosyn. The chest x-ray from today is showing adequate positioning of the ET tube. The patient has bilateral lower lobe small pleural effusions. No major interval change compared to yesterday. He remains on DuoNeb nebulized treatments around the clock. Remains on IV Solu-Medrol and remains on IV Zosyn. The pro-calcitonin level was at 0.631 at a time of admission. Lactic acid level was nonelevated the time of admission. The patient has a flutter rhythm and currently is on oral amiodarone. He is also on anticoagulation with Lovenox 50 mg subcu every 12 hours under the recommend ations of cardiology. Note that the patient also has chronic once and the wounds are multiple involving the right forearm where he is a skin tear, right calf ulcer, right willis, left thigh, left foot and left elbow and he also has a sacral wound stage II. None of these wounds are draining. The one on his right willis is covered with a rather thick scab which is extending in the area under his knee to the mid the patient is also on goal enteral feeding and the patient is currently on vital high protein right running at the rate of 36. 08/23 2021, the patient remains intubated on a mechanical ventilator. This morning, he remains on propofol running at 60 mcg/kg per minute. The patient is quite sensitive a mechanical ventilator. He remains on assist control mode at the rate of 40 with a tidal volume of 325 with an FiO2 of 30% and a PEEP of 6. Peak airway pressures around 25. His I:E ratio is 1-6. No significant rest or secretions. Blood gases showed a pH of 7.32 with a pCO2 of 43 and pO2 of 92. The patient remains on assist control mode of mechanical ventilation, volume cycle. The chest x-ray is not showing any acute abnormalities. ET tube is in a good location. There is hyperinflation consistent with COPD. There is also increased haziness in lung bases bilaterally compared to yesterday chest x-ray, possibly some effusion/pulmonary vessel congestion.. Note that the patient remains on IV Zosyn. His pro-calcitonin level at the time of admission was 0.631. His lactic acid level was nonelevated. He remains in atrial flutter rhythm with a controlled rate. No major changes in his condition since yesterday. He is receiving enteral feeding for nutritional support and currently he is on [employer] posterior running good today shows 36. The patient is afebrile. The patient is hemodynamically stable. The patient is on no pressors for now. In terms of his cardiac status, the patient remains on oral amiodarone and Lopressor and the patient is also on Lovenox 50 mg subcu every 12 hours per cardiology as an anticoagulant. He does have multiple wounds throughout his lower extremity and upper extremity and the sacrum. He is extensively debilitated. His blood work from today showing a sodium level of 147, potassium of 4 Cardizem 121 with a BUN of 40 and a creatinine of 0.9. Blood sugar is 153. The white cell count is currently at 12.6 with a hemoglobin of 7.3 and a platelet count of 160s . Upon further inspection, the right leg wounds which has a large eschar is draining some purulent material and this needs to be further debrided. 08/24/2021, the patient remains on a mechanical ventilator. He received a sedation holiday yesterday. He went on for a total of 2.5 half hours. He open up his eyes and he was not following any commands and at that point, he was having some autonomic reactions and he was started back on sedation. This morning, he was on propofol at 50 mcg/kg per minute. He is in the process of getting another sedation holiday. He is off sedation for around half an hour. His opening up his eyes. His grimacing to painful stimulation. He is not following any commands. Does not move and is quite debilitated and extremely weak at this point in time. The patient remains on a mechanical ventilator on assist control mode at the rate of 14 with a tidal volume of 375 and FiO2 of 30% with a PEEP of 6. Peak airway pressures 27. Blood gases from today show a pH of 7.32 with a pCO2 of 44 and pO2 of 108. Chest x-ray from today is showing no significant interval change. ET tube remains in a good location. The patient has no evidence of any pneumothorax. There is hyperinflation regarding his underlying COPD. There is increased haziness in the lung bases bilaterally and a component of mild pulmonary vascular congestion. The tip of the orotracheal tube is around 3.5 cm above the josette. There is persistent patchy opacity in the left mid and lower lung hawk slightly more prominent on today's evaluation. Meanwhile, the patient's has a white cell count of 14.8. Hemoglobin is at 7.4. He had is a 41 with a creatinine of 0.8 and a sodium level of 142. He is afebrile for now. His pro-calcitonin level from 08/19/2021 was 0.41. His fluid balance over the past 24 hours is +2.2 L and the patient is currently on D5W at the rate of 100 mL an hour and the patient is receiving enteral feeding for nutritional support and he is receiving vital high protein at the rate of 29 mL an hour. Note that the patient's that have a component of hyponatremia yesterday and for that reason he was started on free water supplements. Gen. surgery was also consulted on this patient regarding his wounds and the large eschar over the right lower extremity and this needs to be debrided a later stage. My concern is that the patient is extremely debilitated and he may not be a good candidate for weaning and he may not reach a successful weaning off the mechanical ventilator. I have were discussed this with his wif e. 08/25/2021, the patient is currently off propofol and the patient is currently on Precedex and this is being gradually weaned off as the patient is quite comfortable on a mechanical ventilator while being on Precedex. Precedex is currently running at a dose of 0.3 mcg/kg per minute and the patient seems to be sections a mechanical ventilator. On today's evaluation, he opens up his eyes. He does not follow any commands. He is not checking at this point in time. Note that he is on a low-dose of Precedex. He is on a mechanical ventilator on assist control mode at the rate of 14 with a tidal volume of 375 and FiO2 of 40% with a PEEP of 6. The blood gas showed pH of 7.32 with a pCO2 of 48 and pO2 of 79. The peak airway pressures nonelevated and the patient has equal and symmetrical breath sounds. The repeat chest x-ray was done today that showed improvement in the left sided perihilar pulmonary infiltrates. His improvement in the volume status. The infiltrate on the left his left prominent specially in the left lower lobe. ET tube remains in a good location. No significant orotracheal secretions. The patient remains on IV Zosyn for now. The cultures are essentially negative other than josette bacterium in the sputum which is probably a colonizer. He is afebrile. He is hemodynamically stable. Affect is slightly hypertensive. He is receiving enteral feeding for nutritional support without any major difficulties and he is on vital high protein at the rate of 44 mL an hour. In terms of his fluid balance, I put him on D5 water to yesterday regarding his hypernatremia. He was also started on free water supplements. The sodium level today is at 142 and he is currently on 0.9 at 20 mL an hour and the free water has been discontinued and the patient was given a dose of Lasix yesterday. Overall fluid balance since yesterday has been in the order of +2.2 L. He is afebrile. Hemodynamically stable. Pro-calcitonin level was 0.41. Of concern is his profound weakness and the patient is still not following commands despite having some degree of alertness and he opens up his eyes and looks around without any purpose. He does grimace to painful stimulation and withdraws to painful stimulation in all 4 extremities. The large wound over the right lower extremity is covered with a dry eschar. The edges of the wounds are draining purulent material. he has multiple unstageable wounds on his buttocks on multiple areas. 08/26/2021, the patient is on Precedex which is running at a dose of 0.5 mcg/kg per minute. He is more arousable compared to yesterday. His tract in and he did may be use his hands to grab upon demand. His eyes are open. He follows no commands at this point in time. He is breathing comfortably on a mechanical ventilator. He is hemodynamically stable. Is an assist-control mode at the rate of 14 with a tidal volume of 375 mL with an FiO2 of 30% and a PEEP of 6. The blood gases from today showed a pH of 7.39 with a pCO2 of 43 and pO2 of 80. The patient had no chest x-ray done today. His blood work shows a stable white cell count of 15.8 with a hemoglobin of 7.5 and a platelet count of 211. Sodium is at 145. Bicarb is a 28 with a BUN of 52 and a creatinine of 0.9. The overall fluid balance over the past 24 hours has been had it hours a negative fluid balance. The patient is afebrile. The patient is hemodynamically stable. The patient is on no pressors. The patient is receiving enteral feeding for nutritional support and the patient is currently on vital high protein at the rate of 44 mL an hour. As mentioned, the patient has multiple wounds largest being his right lower extremity and another unstageable wounds in his buttocks. We have not debrided wounds yet and the procedure was canceled upon the family's request. Furthermore, the family opted to change his CODE STATUS to DO NOT RESUSCITATE DO NOT INTUBATE. No other significant events overnight. His cardiac rhythm is sinus. He remains on bronchodilators. He remains on steroids. He remains on an empiric antibiotic coverage with IV Zosyn. 08/27/2021, the patient is being seen for a follow-up. He is awake. He is following some simple commands. He is not thing with his had an upon questioning, he stated that he wanted the tube out. He is on Precedex running at 0.5 mcg/kg/h. He is nicely sedated and is calm and comfortable. He has remained on a pressure support mode of mechanical ventilation throughout the day yesterday. He is currently on a pressure support of 5 and a PEEP of 6. The chest x-ray from today showing a hyperinflation and left basilar pleural effusion which is essentially small. ET tube remains in a good location. No other new acute abnormalities have been noted. The patient does not have any major respiratory secretions. Blood. This from today showed a pH of 7.37 with a pCO2 of 50 and pO2 of 170. Hemodynamically stable. He is on no pressors. His white cell count of 15 with a hemoglobin of 7.2. Same time, the patient has developed some mild hyperchloremic hypernatremia and this is despite his third spacing. His sodium level is up to 149. Cortisone and 16. BUN is 59 with a creatinine of 0.8. He is afebrile. He has multiple wounds as stated. He has become more edematous in all 4 extremities. He remains on bronchodilators, steroids, and is also on IV Zosyn. Overall fluid balance is -1.1 L over the past 24 hours. Examination of his wound revealed that the patient is developing a hematoma-like blisters in the medial aspect of his right thigh. The dry scabbed wounds over the lateral aspect of the right lower extremity is unchanged although it has become more wet as the patient is becoming edematous in all 4 extremities. 08/28 2021, the patient is extubated. With extubation process yesterday and the patient extubated successfully to a BiPAP. Note that he was also on Precedex for agitation and the Precedex is being gradually weaned off and currently is down to 0.3 mcg/kg/h. He is unresponsive. Extremely weak, barely able to move his fingers and toes. He is talking. He is breathing comfortably and is currently on oxygen at 2 L per minute nasal cannula. His mouth is dry and is also requesting for some milk. Family were at the bedside yesterday. The plan is a DNR/DNI CODE STATUS with no intentions 40 intubation. Llanos catheter is in place. Continues to have intermittent edema in all 4 extremities. The patient seems 40 mg of Lasix yesterday and the patient has been producing adequate amount of urine output. Nevertheless, the sodium level is up to 149 and the patient's current IV fluids are in the form of D5W at the rate of 50 mL an hour. The sodium level has not changed considerably since yesterday. The white cell count at 13.5. Hemoglobin is at 7.1. Potassium level is at 3.6. BUN is at 48 with a creatinine of 0.8. The wounds are essentially unchanged. He is afebrile. He is on empiric antibiotics and he is currently on IV Zosyn. Remains on bronchodilators. He remains on steroids. Extremely debilitated. Extubated this point in time. Communicating. At times angry. On 08/29/2021 patient seen in follow-up in the intensive care unit, she was successfully weaned and extubated from mechanical ventilator on 08/26/2021 to BiPAP support. BiPAP support has been gradually weaned off, and patient is currently on 2 L of oxygen a pulse ox of 98%, breathing comfortably, BiPAP support has been off since 10:00 yesterday on 08/28/2021, patient is breathing comfortably, no worsening dyspnea, he is quite weak and debilitated, but appears to be in no acute distress. His last chest x-ray from 08/27/2021 showed small left pleural effusion, and mild interval improvement in the degree of pleural fluid. Today's labs have been reviewed, his white blood cell count is 15.2, hemoglobin is 7.0, sodium is 144, potassium is 4.1, chloride is 112, B1 is 30, creatinine 0.75. Vision has received a dose of IV Lasix yesterday 40 mg 1. To produce 2.6 L in the urine output however he still remains in positive net fluid balance. He is currently receiving D5W at a rate of 100 ML per hour, his oral intake has been poor despite encouragement and assistance with his meals. No fever or chills overnight. Patient is not requiring any vasopressor support although at times she does become hypertensive, and cardiology is following, 50 mg of losartan at bedtime has been added. Patient remains on IV steroids with Solu-Medrol 60 mg every 6 hours. Remains on Zosyn for empiric antibiotic coverage. This cultures have been negative, with exception of sputum which showed Corynebacterium stratum which is possibly related to colonization. No nausea or vomiting, no diarrhea. He is getting local wound care to his wound on his right lower extremity, and his sacral and left hip area. Objective - Vital Signs Vital signs: Vital Signs Temp 98.1 F 08/29/21 08:00 Pulse 71 08/29/21 11:34 Resp 18 08/29/21 11:00 BP 153/58 08/29/21 11:00 Pulse Ox 96 08/29/21 11:00 FiO2 35 08/28/21 10:26 Intake & Output 08/28/21 08/29/21 08/29/21 18:59 06:59 18:59 Intake Total 6098.248 0144.988 820 Output Total 2004 595 230 Balance -533.778 960.988 590 Weight 59.9 kg Intake: IV 1364 1440 720 Dextrose 5% in Water 1, 1100 1200 600 000 ml @ 100 mls/hr IV . Q10H GRACIE Rx#:[id number] Sodium Chloride 0.9% 1, 240 240 120 000 ml @ 20 mls/hr IV . Q24H GRACIE Rx#:[id number] pressure bag 24 Intake, IV Titration 107.222 115.988 100 Amount Dexmedetomidine/0.9% NaCl 107.222 15.988 (Pmx) 400 mcg In Empty Bag 1 bag @ 0.2 MCG/KG/HR 3.14 mls/hr IV .Q24H GRACIE Rx#:[id number] Piperacillin-Tazobactam 3 100 100 .375 gm In Sodium Chloride 0.9% 100 ml @ 25 mls/hr IVPB Q8HR GRACIE Rx# :[id number] Output: Urine 2004 595 230 Other: Voiding Method Indwelling Catheter Indwelling Catheter Indwelling Catheter # Bowel Movements 1 ABP, PAP, CO, CI - Last Documented Arterial Blood Pressure 174/34 - Exam GENERAL EXAM: Drowsy, but arousable, 71-year-old frail-looking white male, on 2 L of oxygen, comfortable in no apparent distress. HEAD: Normocephalic/atraumatic. EYES: Normal reaction of pupils, equal size. Conjunctiva pink, sclera white. NOSE: Clear with pink turbinates. THROAT: No erythema or exudates. NECK: No masses, no JVD, no thyroid enlargement, no adenopathy. CHEST: No chest wall deformity. Symmetrical expansion. LUNGS: Equal air entry with no crackles, wheeze, rhonchi or dullness. CVS: Regular rate and rhythm, normal S1 and S2, no gallops, no murmurs, no rubs ABDOMEN: Soft, nontender. No hepatosplenomegaly, normal bowel sounds, no guarding or rigidity. EXTREMITIES: No clubbing, no edema, no cyanosis, 2+ pulses and upper and lower extremities. MUSCULOSKELETAL: Muscle strength and tone normal. SPINE: No scoliosis or deformity SKIN: No rashes. Large-sized eschar over the right lower extremity with wound edges draining some yellow purulent material at the distal edges, and patient also has various wounds and skin tears on his heels, forearms and legs. She also has stage III sacral ulcer, and left hip ulcer. CENTRAL NERVOUS SYSTEM: Alert and oriented -1. No focal deficits, tone is normal in all 4 extremities. PSYCHIATRIC: Alert and oriented -1. Appropriate affect. Intact judgment and insight. - Labs CBC & Chem 7: 08/29/21 06:45 08/29/21 06:45 Labs: Abnormal Lab Results - Last 24 Hours (Table) 08/28/21 08/28/21 08/29/21 Range/Units 17:24 23:49 05:51 WBC (3.8-10.6) k/uL RBC (4.30-5.90) m/uL Hgb (13.0-17.5) gm/dL Hct (39.0-53.0) % RDW (11.5-15.5) % Neutrophils # (1.3-7.7) k/uL Lymphocytes # (1.0-4.8) k/uL Chloride (98-107) mmol/L BUN (9-20) mg/dL Glucose (74-99) mg/dL POC Glucose (mg/dL) 258 H 210 H 121 H (75-99) mg/dL Calcium (8.4-10.2) mg/dL 08/29/21 08/29/21 08/29/21 Range/Units 06:45 06:45 11:20 WBC 15.2 H (3.8-10.6) k/uL RBC 2.26 L (4.30-5.90) m/uL Hgb 7.0 L (13.0-17.5) gm/dL Hct 22.0 L (39.0-53.0) % RDW 22.3 H (11.5-15.5) % Neutrophils # 14.5 H (1.3-7.7) k/uL Lymphocytes # 0.3 L (1.0-4.8) k/uL Chloride 112 H (98-107) mmol/L BUN 38 H (9-20) mg/dL Glucose 126 H (74-99) mg/dL POC Glucose (mg/dL) 209 H (75-99) mg/dL Calcium 7.8 L (8.4-10.2) mg/dL 08/29/21 Range/Units 11:33 WBC (3.8-10.6) k/uL RBC (4.30-5.90) m/uL Hgb (13.0-17.5) gm/dL Hct (39.0-53.0) % RDW (11.5-15.5) % Neutrophils # (1.3-7.7) k/uL Lymphocytes # (1.0-4.8) k/uL Chloride (98-107) mmol/L BUN (9-20) mg/dL Glucose (74-99) mg/dL POC Glucose (mg/dL) 203 H (75-99) mg/dL Calcium (8.4-10.2) mg/dL Assessment and Plan Plan: Assessment: #1. Acute exacerbation of COPD, with acute hypoxic respiratory failure requiring intubation and mechanical ventilation on 08/19/2021. History is x-ray showed bilateral lower lobe infiltrates/effusions, and left perihilar pulmonary infiltrate. Patient was extubated on 08/27/2021 2 BiPAP support, which was gradually weaned off. Patient has a history of COPD, stage IV, with an FEV1 of 25% of predicted. Patient is extremely debilitated. CODE STATUS is currently DO NOT RESUSCITATE DO NOT INTUBATE. She remains on Zosyn, bronchodilators, and IV steroids, currently not requiring any BiPAP support. #2. A flutter with RVR, currently on amiodarone and Lovenox #3. History of severe end-stage COPD with baseline FEV1 of 0.5% of predicted #4. Chronic hypoxic respiratory failure related to the above #5. Former smoker #6. Nonhealing bilateral lower extremity ulcers #7. Elevated pro-calcitonin level, rule out possibility of infection #8. Mildly elevated d-dimer, with no CT evidence of pulmonary embolism #9. Focal scarring versus spiculated nodule in the right upper lobe, will need outpatient follow-up, and possible PET scan #10. Chronic cachexia #11. Hypertension #12. Hyperlipidemia #13. Hypothyroidism #14. Osteoarthritis #15. Hyperchloremic hypernatremia, mild, improved with free water supplements #16. Multiple wounds with a large eschar over the right lower extremity, and various wounds including stage III sacral wound, and left hip decubitus ulcer in addition to multiple skin tears Plan: Continue current medical treatment Continue antibiotics, breathing treatments Maintain aspiration precautions We'll cut back on the steroids to 40 mg every 8 hours Follow-up chest x-ray tomorrow Encourage oral intake Surgery to evaluate for possibility of surgical debridement of patient's right lower extremity wound CODE STATUS is DO NOT RESUSCITATE and DO NOT INTUBATE Continue supportive medical treatment Stable to transfer out of intensive care unit today to regular medical surgical floor. I have personally seen and examined the patient, performed the documentation and the assessment and plan as written. Number of minutes spent on the visit: 15 Time with Patient: Greater than 30
--- NOTE | 2021-08-29 13:52 | P.PN ---
Progress Note - Text Progress Note Date: 08/29/21 Patient remains clinically unchanged. His leg wound is still. We'll will remain on surgical standby for debridement.
--- NOTE | 2021-08-29 14:08 | P.PN ---
Subjective Progress Note Date: 08/29/21 This is a pleasant 71 years old male with past medical history of COPD, Hyperlipidemia, Hypertension, Osteoarthritis , Metabolic Encaphalopathy, Acute kidney failure with tubular necrosis, Cachexia, Chronic non-pressure ulcer of back, Rhabdomylosis was sent from [facility] with increased weakness and lethargy over the last 2-3days Patient is poor historian but as per staff with . his he has been a retirement for the last 1-2 months and his been confused. pt looks cachectic and very frail, he is oriented to time ,place and person , but has no denture, his voice is muffled because of that he is been complaining from dyspnea and chest pain which is mild in the middle nonradiating and associated with very little cough. He says his shortness of breath was worse over the last 1 day and a half. Denies any abdominal pain or vomiting or diarrhea but he has low appetite. He denies any choking or swallow problem but he has no denture so we'll check for swallow evaluation Patient looks tachypneic with bilateral chest with some limited air entry but no ricardo wheezing. Patient states that he quit smoking about 10 years ago, used to smoke for more than 10 years. No alcohol or illicit drugs. He has multiple pressure ulcers he has one large pressure ulcers on the right leg laterally with drying scab Or any dressing . Also has multiple pressure ulcers with black eschar on both heels and left foot. The surrounding skin looks intact with no redness or swelling. On admission he was slightly tachypneic on 20, afebrile and heart rate was 84 and blood pressure 141/64, however overnight his blood pressure dropped with systolic 90s to 100, currently his blood pressure 104/68, also became tachycardic with heart rate 04/17/2049. He was saturating 9920% on 2-3 L oxygen via nasal cannula. He is mildly hypothermic at 97.2 His WBC is elevated at 17.7. Hemoglobin is 10.0. Platelet count 258. INR 0.9. BUN is 32 and creatinine 0.9. Troponin is 0.02 and less than 0.01. Glucose was on the low side 57 on admission and currently is 201. Urinalysis showed 1+ protein with no evidence of infection. Patient started on steroids and got a breathing treatment, IV fluids and started on amiodarone drips and Lovenox in the emergency room. D-dimer was elevated, therefore CTA of the chest was done which showed negative for pulmonary embolism, emphysematous changes with small pleural effusion. Also there is focal scattered versus speculated nodule in the right upper lobe we ordered stat CT of the brain and CT of the chest to rule out pulmonary embolism given his hypotension, tachycardia and tachypnea with elevated d-dimer. Also with mild hypoxia suspected. However patient confused per staff when he came in and could not be started on heparin drip before we rule out intracranial bleed before CT of the brain is also ordered with CT of the chest. Both tests came back negative 08/19/2021 Patient today during morning rounds found obtunded and responsive and unarousable with impending respiratory failure and he was transferred to the intensive care unit he got intubated and placed on mechanical ventilation with pulmonary/critical care team following closely and held with and management. His WBCs 11.6, hemoglobin 8.6, creatinine 1.4. chest x-ray sewn bilateral worsening infiltrates especially in the lower zones mood versus worsening infection His continued counseling atrial 60 mg, antibiotic form of Zosyn and amiodarone drip for developing A. fib and RVR. High-dose tenderness on hold 08/20/2021 Patient remains in the ICU intubated and sedated, he still tachypneic with respiratory rate of 28, his PEEP of 8.0 today. His hemoglobin is 7.1, creatinine 1.4. Remains on IV Solu-Medrol and Zosyn. Also is on amiodarone drip, and normal saline at 100 mL per hour. He still has bilateral leg ulceration with dried surface. Ultrasound showing evidence of chronic left DVT, currently he is on Lovenox 50 mg twice daily 08/21/2021 patient remains in the ICU sedated and intubated with pulmonary/critical care team following him closely and help with vent management . He is still on high PEEP relatively at 8 and FiO2 of 35%. He is tachypneic and tachycardic WBC 6.6, hemoglobin 7.5, creatinine improvement 1.2, chest x-ray showing no change. He remains on Zosyn, IV Solu-Medrol and normal saline 08/22/2021 Patient continues to be in the MICU with multiple medical consultations following. Pulmonary intensivists following and patient is maintained on IV steroids, duonebs, and IV antibiotics and will continue. Patient continues on vent with an FI02 of 30% and peep being weaned somewhat from 8 to 6 today. Chest xray is similar to previous day with no real improvement. Patient is afebrile. Patient overall prognosis is extremely poor and guarded and code status to be addressed. Cardiology following as well and have increased the metoprolol and continues on amiodarone. 08/23/2021 Patient continues to be in the ICU on mechanical vent with an FI02 of 30% and p eep is 6. Patient on sedation with holidays being conducted. Not tolerating and no plan for extubation at this time. General surgery consulted for right willis ulcer that has a large scab over it and apparently now some purulent drainage is noted. Possible debridement of the wound and recommend obtaining cultures. Patient is afebrile and sodium is elevated and IV fluids being transitioned to D5 in Water. Recommend repeat labs. 08/24/2021 Patient continues to be closely monitored in the medical ICU and maintained on mechanical vent. Chest x-ray shows persistent patchy opacification the left mid and lower lung zone slightly more prominent today with no progressive right pulmonary consolidation and grossly stable pleural effusions and also incidental finding of NG tube that needs further advancing into the stomach. Patient is continued on enteral nutrition via NG. Patient remains on mechanical vent with an FiO2 of 30% and PEEP is 6. Patient also continues on D5 in water and sodium is 142 today with a potassium of 3.9, creatinine is 0.87. Hemoglobin is 7.4 and WBC is 14.8 which is on an upward trend. Patient is afebrile. Patient continues on breathing inhalational treatments along with IV steroids 60 every 6 and IV Zosyn and is sedated with propofol at this time. Patient is tentatively scheduled for debridement of the right willis today. 08/25/2021 Patient is seen in follow-up in the ICU with multiple medical consultations following. Patient continues on mechanical vent with an FiO2 of 30% and PEEP is 6. Patient is currently off sedation and on Precedex low-dose. Attempting CPAP trials per pulmonary. Contemplating possible tracheostomy family continues to wish for the patient to remain full code. Patient is high risk for remaining on mechanical ventilation given his extensive comorbidities. Per nursing staff patient was not following commands although on exam right are asked patient to nod head yes or no is having any pain and patient nodded had no. Will then look around the room and stare off at the coats. Patient is extremely cachectic and ill-appearing and lethargic. Pulmonary following along with general surgery and plan is for possible debridement of that right willis in the a.m. Chest x-ray shows less prominent infiltration the left lower lung zone and unchanged remainder of the lungs. Patient also continues on breathing inhalational loyda tments along with IV steroids and IV Zosyn. Recommend electrolyte replacement per protocol and were within normal limits today. WBC mildly elevated and trending upward at 15.2, hemoglobin is 7.8. Patient is afebrile. 08/26/2021 Patient continues in the ICU and currently off pressor support. Patient is on low dose precedex and assessing for weaning parameters and currently maintained on cpap assist mode with 5/5 settings. When on vent Fio2 is 30% with a peep of 6. Patient family has made the patient no code and has cancelled the debridement of the right willis wound with general surgery. Possible extubation in the near future and no plans for reintubation. Patient WBC trending down and proc alcitonin is 0.07 and maintained on IV abx with ID following. Sputum likely colonization. Overall prognosis is poor and guarded. Patient is afebrile 08/27/2021 Patient seen on follow-up in the ICU, he is currently intubated on mechanical ventilation, pressure support of 5, PEEP of 6 ABG from today shows pH 7.37, pCO2 50, pO2 170. He is currently on Precedex, but is alert opening his eyes, however today shows his [place]nat[place] [address] receiving IV hydration with D5 water. Currently hemodynamically stable, no fevers. Continues antimicrobial therapy of Zosyn as coronary bacterium growing in the sputum is continued on systemic steroids. Stable creatinine 0.87, blood sugars been running in the 200s he is on sliding scale coverage. 08/28/2021 Patient is extubated patient has diminished breath sounds but not wheezing at this time. 08/29/2021 Patient is seen in follow-up this morning awaiting transfer out of ICU as patient has been downgraded to [facility] and awaiting a bed. Patient was recently extubated and currently maintained on 2 L via nasal cannula. Patient is eating and tolerating an oral intake remains poor but is fair. Family at the bedside reports that they would like [facility] on the [place] when stabilized and discharged and social work following and working on accepting facility. Gen. surgery on standby in the event family changes their mind about debridement of the wounds. WBCs elevated at 15.2 and patient remains on IV antibiotics. Sodium elevated at 144 and will continue D5 in water and follow-up with repeat labs and also recommended chest x-ray in the morning. Patient also continues with DuoNeb treatments along with IV steroids which are being decreased by pulmonary. Will follow-up on labs tomorrow and discuss with pulmonary about discharge planning. Family at the bedside also adamant about changing providers as they are not happy with the current provider. Review of systems: Constitutional: No reports of fatigue, fever, or chills Cardiovascular: No reports of chest pain or palpitations Respiratory: No reports of shortness of breath or cough GI: No reports of nausea, vomiting, or diarrhea : No reports of dysuria or retention Neurovascular: reports of weakness All medications have been reviewed Active Medications Acetaminophen (Acetaminophen Tab 325 Mg Tab) 650 mg PO Q4H PRN PRN Reason: Pain or Fever > 100.5 Albuterol/Ipratropium (Ipratropium-Albuterol 3 Ml Neb) 3 ml INHALATION RT-Q4H PRN PRN Reason: Shortness Of Breath Or Wheezing Albuterol/Ipratropium (Ipratropium-Albuterol 3 Ml Neb) 3 ml INHALATION RT-QID [facility] Last Admin: 08/29/21 11:23 Dose: 3 ml Amiodarone HCl (Amiodarone 200 Mg Tab) 200 mg PO BID [facility] Last Admin: 08/29/21 09:29 Dose: 200 mg Amlodipine Besylate (Amlodipine 10 Mg Tab) 10 mg PO DAILY [facility] Last Admin: 08/29/21 09:29 Dose: 10 mg Budesonide (Budesonide 1 Mg/2 Ml Nebu) 1 mg INHALATION RT-BID [facility] Last Admin: 08/29/21 07:12 Dose: 1 mg Famotidine (Famotidine 20 Mg Tab) 20 mg PO DAILY [facility] Last Admin: 08/29/21 09:29 Dose: 20 mg Formoterol Fumarate (Formoterol Fumarate 20 Mcg/2 Ml Nebu) 20 mcg INHALATION RT-BID [facility] Last Admin: 08/29/21 07:12 Dose: 20 mcg Hydromorphone HCl (Hydromorphone 1 Mg/Ml 1 Ml Syringe) 1 mg IVP Q2HR PRN PRN Reason: Pain Last Admin: 08/27/21 01:43 Dose: 1 mg Dextrose/Water (Dextrose 5%-Water Iv Soln) 1,000 mls @ 100 mls/hr IV .Q10H [facility] Last Admin: 08/29/21 04:53 Dose: 100 mls/hr Piperacillin Sod/Tazobactam (Sod 3.375 gm/ Sodium Chloride) 100 mls @ 25 mls/hr IVPB Q8HR [facility]; Protocol Last Admin: 08/29/21 09:29 Dose: 25 mls/hr Insulin Aspart (Insulin Aspart (Novolog) 100 Unit/Ml Vial) 0 unit SQ Q6HR [facility]; Protocol Last Admin: 08/29/21 11:35 Dose: 3 unit Levothyroxine Sodium (Levothyroxine 50 Mcg Tab) 50 mcg PO DAILY@0500 [facility] Last Admin: 08/29/21 06:18 Dose: 50 mcg Losartan Potassium (Losartan 50 Mg Tab) 50 mg PO HS [facility] Methylprednisolone Sodium Succinate (Methylprednisolone Sod Succi 40 Mg/Ml 1 Ml Vial) 40 mg IV Q8HR [facility] Metoprolol Tartrate (Metoprolol Tartrate 50 Mg Tab) 100 mg PO BID [facility] Last Admin: 08/29/21 09:29 Dose: 100 mg Miscellaneous Information (Magnesium Replacement Protocol 1 Each Misc) 1 each MISCELLANE DAILY PRN; Protocol PRN Reason: Per Protocol Miscellaneous Information (Potassium Replacement Protocol 1 Each Misc) 1 each MISCELLANE DAILY PRN; Protocol PRN Reason: Per Protocol Miscellaneous Information (Potassium Replacement Protocol 1 Each Misc) 1 each MISCELLANE DAILY PRN; Protocol PRN Reason: Per Protocol Naloxone HCl (Naloxone 0.4 Mg/Ml 1 Ml Vial) 0.2 mg IV Q2M PRN PRN Reason: Opioid Reversal Tramadol HCl (Tramadol 50 Mg Tab) 50 mg PO Q6H PRN PRN Reason: Pain Last Admin: 08/25/21 20:18 Dose: 50 mg Physical Exam: GENERAL: The patient is alert and recently extubated currently maintained on 2 L via nasal cannula. Patient is awake and eating with family at the bedside. Thin built, ill-appearing, cachectic HEENT: Pupils are round and equally reacting to light. EOMI. No scleral icterus. No conjunctival pallor. Normocephalic, atraumatic. No pharyngeal erythema. No thyromegaly. CARDIOVASCULAR: S1 and S2 present. No murmurs, rubs, or gallops. PULMONARY: Decreased air entry with scattered diffuse wheezing with course rhonchi ABDOMEN: Soft, nontender, nondistended, normoactive bowel sounds. No palpable organomegaly. MUSCULOSKELETAL: No joint swelling or deformity. EXTREMITIES: No cyanosis, clubbing, or pedal edema. Multiple bilateral leg ulcers including both heels and right lateral willis with large scabbing noted over entire surface of the wound. some surrounding redness noted and continued purulent drainage noted from the willis. No evidence of overt surrounding cellulitis NEUROLOGICAL: Gross neurological examination did not reveal any focal deficits. Diffusely weak SKIN: No rashes. no petechiae. Assessment: Acute hypoxic respiratory failure requiring intubation and mechanical ventilation secondary to End stage COPD, extubated on 08/28/2021 COPD with exacerbation Multiple pressure ulcers with suspected infection Hypovolemic hyponatremia Aflutter with RVR, currently rate controlled Moderate calorie malnutrition with a BMI of 21.1 multiple leg wounds focal scar versus speculated nodule in the right upper lobe, will need outpatient PET scan History of hypertension, currently he is hypotensive Hyperlipidemia Dehydration Chronic altered mental status with some elements of acute related to metabolic encephalopathy. Possible dementia History of osteoarthritis History of chronic nonpressure ulcer of the back DVT prophylaxis: Subcutaneous Lovenox GI Prophylaxis: Pepcid No code Plan: Recommend continue on antibiotics and infectious disease is following. General surgery on standby for debridement of the right willis, but family cancelled and changed code status to no code. Patient was recently extubated on 08/28/2021 and currently maintained on 1 L via nasal cannula and doing relatively well. Patient is a downgrade and transfer out of the ICU once a bed becomes available Patient was at [facility] and per family at the bedside, patient will not be returning there and would like to go to [facility] on the [place] and social work following and working with liaison and reviewing the case Recommend to continue on IV steroids along with breathing inhalational treatments. IV steroids being titrated down with pulmonary following. Recommend follow-up with am labs Recommend follow-up chest x-ray in the morning Pulmonary and cardiology following Overall Prognosis is extremely poor and guarded CODE STATUS no code per The impression and plan of care has been dictated by Lucy Reyes, Nurse Practitioner as directed. Dr. Navi MD I have performed a history and examination and MDM of this patient, discussed the same with the dictator, and agree with the dictator's assessment and plan as written ,documented as a scribe. Based on total visit time, I have performed more than 50% of the visit. Objective - Vital Signs Vital signs: Vital Signs Temp 98.1 F 08/29/21 08:00 Pulse 87 08/29/21 09:00 Resp 24 08/29/21 09:00 BP 163/60 08/29/21 09:00 Pulse Ox 97 08/29/21 09:00 FiO2 35 08/28/21 10:26 Intake & Output 08/28/21 08/29/21 08/29/21 18:59 06:59 18:59 Intake Total 6352.511 4548.988 460 Output Total 2004 595 130 Balance -533.778 960.988 330 Weight 59.9 kg Intake: IV 1364 1440 360 Dextrose 5% in Water 1, 1100 1200 300 000 ml @ 100 mls/hr IV . Q10H [facility] Rx#:[id number] Sodium Chloride 0.9% 1, 240 240 60 000 ml @ 20 mls/hr IV . Q24H [facility] Rx#:[id number] pressure bag 24 Intake, IV Titration 107.222 115.988 100 Amount Dexmedetomidine/0.9% NaCl 107.222 15.988 (Pmx) 400 mcg In Empty Bag 1 bag @ 0.2 MCG/KG/HR 3.14 mls/hr IV .Q24H [facility] Rx#:[id number] Piperacillin-Tazobactam 3 100 100 .375 gm In Sodium Chloride 0.9% 100 ml @ 25 mls/hr IVPB Q8HR [facility] Rx# :[id number] Output: Urine 2004 595 130 Other: Voiding Method Indwelling Catheter Indwelling Catheter # Bowel Movements 1 ABP, PAP, CO, CI - Last Documented Arterial Blood Pressure 174/34 - Labs CBC & Chem 7: 08/29/21 06:45 08/29/21 06:45 Labs: Abnormal Lab Results - Last 24 Hours (Table) 08/28/21 08/28/21 08/28/21 Range/Units 11:35 17:24 23:49 WBC (3.8-10.6) k/uL RBC (4.30-5.90) m/uL Hgb (13.0-17.5) gm/dL Hct (39.0-53.0) % RDW (11.5-15.5) % Neutrophils # (1.3-7.7) k/uL Lymphocytes # (1.0-4.8) k/uL Chloride (98-107) mmol/L BUN (9-20) mg/dL Glucose (74-99) mg/dL POC Glucose (mg/dL) 147 H 258 H 210 H (75-99) mg/dL Calcium (8.4-10.2) mg/dL 08/29/21 08/29/21 08/29/21 Range/Units 05:51 06:45 06:45 WBC 15.2 H (3.8-10.6) k/uL RBC 2.26 L (4.30-5.90) m/uL Hgb 7.0 L (13.0-17.5) gm/dL Hct 22.0 L (39.0-53.0) % RDW 22.3 H (11.5-15.5) % Neutrophils # 14.5 H (1.3-7.7) k/uL Lymphocytes # 0.3 L (1.0-4.8) k/uL Chloride 112 H (98-107) mmol/L BUN 38 H (9-20) mg/dL Glucose 126 H (74-99) mg/dL POC Glucose (mg/dL) 121 H (75-99) mg/dL Calcium 7.8 L (8.4-10.2) mg/dL
[2021-08-29] MEDS: methylPREDNISolone SOD SUCCI 40 MG/ML 1 ML VIAL IV SCH ×2 (16:15→23:49)
[2021-08-29 17:35] LABS: Glucose,Whole Blood 179 mg/dL (75-99)
[2021-08-29] MEDS: LOSARTAN 50 MG TAB PO SCH (20:05)
[2021-08-29 23:42] LABS: Glucose,Whole Blood 92 mg/dL (75-99)
[2021-08-30 05:21] LABS: Glucose,Whole Blood 153 mg/dL (75-99)
[2021-08-30] MEDS: INSULIN ASPART (NovoLOG) 100 UNIT/ML VIAL SQ SCH ×4 (05:22→23:40)
[2021-08-30] MEDS: LEVOTHYROXINE 50 MCG TAB PO SCH (05:22)
--- NOTE | 2021-08-30 06:52 | P.PN ---
Subjective Progress Note Date: 08/28/21 Principal diagnosis: Possible aspiration pneumonia and multiple pressure ulcers She is a 71-year-old male with a past medical history significant for end-stage COPD admitted to the hospital with weakness and some shortness of breath patient did have worsening of his respiratory status requiring intubation and admission to the ICU, patient also have multiple pressure ulcers. Patient subsequently has been successfully extubated on 08/27/2021 On today's evaluation 08/28/2021, the patient remains to be afebrile, patient is hemodynamically stable not requiring pressor support, patient currently breathing comfortably on nasal cannula oxygen patient is lethargic and unable to provide any history Objective - Vital Signs Vital signs: Vital Signs Temp 97.7 F 08/28/21 16:00 Pulse 73 08/28/21 18:00 Resp 25 H 08/28/21 18:00 BP 144/55 08/28/21 18:00 Pulse Ox 99 08/28/21 18:00 FiO2 35 08/28/21 10:26 Intake & Output 08/27/21 08/28/21 08/28/21 18:59 06:59 18:59 Intake Total 2187 712 3294.222 Output Total 2060 750 1755 Balance -1034 -424 -523.778 Weight 59.1 kg Intake: IV 798 821 1274 Dextrose 5% in Water 1, 900 000 ml @ 100 mls/hr IV . Q10H [facility] Rx#:[id number] Sodium Chloride 0.9% 1, 240 240 200 000 ml @ 20 mls/hr IV . Q24H [facility] Rx#:[id number] pressure bag 36 36 24 Intake, IV Titration 450 50 107.222 Amount Dexmedetomidine/0.9% NaCl 100 107.222 (Pmx) 400 mcg In Empty Bag 1 bag @ 0.2 MCG/KG/HR 3.14 mls/hr IV .Q24H [facility] Rx#:[id number] Dextrose 5% in Water 1, 350 50 000 ml @ 100 mls/hr IV . Q10H [facility] Rx#:[id number] Tube Feeding 300 Output: Urine 2060 750 1755 Other: Voiding Method Indwelling Catheter Indwelling Catheter Indwelling Catheter # Bowel Movements 1 1 ABP, PAP, CO, CI - Last Documented Arterial Blood Pressure 174/34 - Exam GENERAL DESCRIPTION: An elderly male lying in bed in no distress RESPIRATORY SYSTEM: Unlabored breathing , decreased breath sounds at bases HEART: S1 S2 regular rate and rhythm , ABDOMEN: Soft , no tenderness EXTREMITIES: No edema feet - Labs CBC & Chem 7: 08/29/21 06:45 08/29/21 06:45 Labs: Abnormal Lab Results - Last 24 Hours (Table) 08/27/21 08/28/21 08/28/21 Range/Units 23:44 05:45 05:45 WBC 13.5 H (3.8-10.6) k/uL RBC 2.43 L (4.30-5.90) m/uL Hgb 7.1 L (13.0-17.5) gm/dL Hct 24.1 L (39.0-53.0) % MCHC 29.6 L (31.0-37.0) g/dL RDW 21.3 H (11.5-15.5) % Neutrophils # 13.0 H (1.3-7.7) k/uL Lymphocytes # 0.2 L (1.0-4.8) k/uL Sodium 149 H (137-145) mmol/L Chloride 114 H (98-107) mmol/L Carbon Dioxide 32 H (22-30) mmol/L BUN 48 H (9-20) mg/dL Glucose 140 H (74-99) mg/dL POC Glucose (mg/dL) 122 H (75-99) mg/dL Calcium 7.6 L (8.4-10.2) mg/dL 08/28/21 08/28/21 08/28/21 Range/Units 05:54 11:35 17:24 WBC (3.8-10.6) k/uL RBC (4.30-5.90) m/uL Hgb (13.0-17.5) gm/dL Hct (39.0-53.0) % MCHC (31.0-37.0) g/dL RDW (11.5-15.5) % Neutrophils # (1.3-7.7) k/uL Lymphocytes # (1.0-4.8) k/uL Sodium (137-145) mmol/L Chloride (98-107) mmol/L Carbon Dioxide (22-30) mmol/L BUN (9-20) mg/dL Glucose (74-99) mg/dL POC Glucose (mg/dL) 140 H 147 H 258 H (75-99) mg/dL Calcium (8.4-10.2) mg/dL Assessment and Plan (1) Pneumonia Current Visit: Yes Status: Acute Code(s): J18.9 - PNEUMONIA, UNSPECIFIED ORGANISM SNOMED Code(s): 961310759 Plan: 1patient presented to hospital with increasing shortness of breath could be related to her underlying cardiac etiology, patient subsequently did have worsening of his respiratory status requiring intubation and concern for possible aspiration. 2sputum culture grew Corynebacterium more likely colonization 3patient to continue local wound care with Medihoney to the left thigh wound with a slough rest of the wound with a dry necrotic area to keep them dry and of the pressure. 4-patient is currently being treated with the Zosyn for possible aspiration pneumonia and continue supportive care Time with Patient: Less than 30
--- NOTE | 2021-08-30 06:54 | P.PN ---
Subjective Progress Note Date: 08/29/21 Principal diagnosis: Possible aspiration pneumonia and multiple pressure ulcers She is a 71-year-old male with a past medical history significant for end-stage COPD admitted to the hospital with weakness and some shortness of breath patient did have worsening of his respiratory status requiring intubation and admission to the ICU, patient also have multiple pressure ulcers. Patient subsequently has been successfully extubated on 08/27/2021 On today's evaluation 08/29/2021, the patient continues to be afebrile, patient is hemodynamically stable not requiring pressor support, patient currently breathing comfortably on room air, patient is lethargic and not a good historian, no vomiting or diarrhea was reported by the nursing staff Objective - Vital Signs Vital signs: Vital Signs Temp 98.1 F 08/29/21 08:00 Pulse 71 08/29/21 11:34 Resp 18 08/29/21 11:00 BP 153/58 08/29/21 11:00 Pulse Ox 96 08/29/21 11:00 FiO2 35 08/28/21 10:26 Intake & Output 08/28/21 08/29/21 08/29/21 18:59 06:59 18:59 Intake Total 4068.043 5568.988 820 Output Total 2004 595 230 Balance -533.778 960.988 590 Weight 59.9 kg Intake: IV 1364 1440 720 Dextrose 5% in Water 1, 1100 1200 600 000 ml @ 100 mls/hr IV . Q10H [facility] Rx#:[id number] Sodium Chloride 0.9% 1, 240 240 120 000 ml @ 20 mls/hr IV . Q24H [facility] Rx#:[id number] pressure bag 24 Intake, IV Titration 107.222 115.988 100 Amount Dexmedetomidine/0.9% NaCl 107.222 15.988 (Pmx) 400 mcg In Empty Bag 1 bag @ 0.2 MCG/KG/HR 3.14 mls/hr IV .Q24H [facility] Rx#:[id number] Piperacillin-Tazobactam 3 100 100 .375 gm In Sodium Chloride 0.9% 100 ml @ 25 mls/hr IVPB Q8HR [facility] Rx# :[id number] Output: Urine 2004 595 230 Other: Voiding Method Indwelling Catheter Indwelling Catheter Indwelling Catheter # Bowel Movements 1 ABP, PAP, CO, CI - Last Documented Arterial Blood Pressure 174/34 - Exam GENERAL DESCRIPTION: An elderly male lying in bed in no distress RESPIRATORY SYSTEM: Unlabored breathing , decreased breath sounds at bases HEART: S1 S2 regular rate and rhythm , ABDOMEN: Soft , no tenderness EXTREMITIES: No edema feet - Labs CBC & Chem 7: 08/29/21 06:45 08/29/21 06:45 Labs: Abnormal Lab Results - Last 24 Hours (Table) 08/28/21 08/28/21 08/29/21 Range/Units 17:24 23:49 05:51 WBC (3.8-10.6) k/uL RBC (4.30-5.90) m/uL Hgb (13.0-17.5) gm/dL Hct (39.0-53.0) % RDW (11.5-15.5) % Neutrophils # (1.3-7.7) k/uL Lymphocytes # (1.0-4.8) k/uL Chloride (98-107) mmol/L BUN (9-20) mg/dL Glucose (74-99) mg/dL POC Glucose (mg/dL) 258 H 210 H 121 H (75-99) mg/dL Calcium (8.4-10.2) mg/dL 08/29/21 08/29/21 08/29/21 Range/Units 06:45 06:45 11:20 WBC 15.2 H (3.8-10.6) k/uL RBC 2.26 L (4.30-5.90) m/uL Hgb 7.0 L (13.0-17.5) gm/dL Hct 22.0 L (39.0-53.0) % RDW 22.3 H (11.5-15.5) % Neutrophils # 14.5 H (1.3-7.7) k/uL Lymphocytes # 0.3 L (1.0-4.8) k/uL Chloride 112 H (98-107) mmol/L BUN 38 H (9-20) mg/dL Glucose 126 H (74-99) mg/dL POC Glucose (mg/dL) 209 H (75-99) mg/dL Calcium 7.8 L (8.4-10.2) mg/dL 08/29/21 Range/Units 11:33 WBC (3.8-10.6) k/uL RBC (4.30-5.90) m/uL Hgb (13.0-17.5) gm/dL Hct (39.0-53.0) % RDW (11.5-15.5) % Neutrophils # (1.3-7.7) k/uL Lymphocytes # (1.0-4.8) k/uL Chloride (98-107) mmol/L BUN (9-20) mg/dL Glucose (74-99) mg/dL POC Glucose (mg/dL) 203 H (75-99) mg/dL Calcium (8.4-10.2) mg/dL Assessment and Plan (1) Pneumonia Current Visit: Yes Status: Acute Code(s): J18.9 - PNEUMONIA, UNSPECIFIED ORGANISM SNOMED Code(s): 342918421 Plan: 1patient presented to hospital with increasing shortness of breath could be related to her underlying cardiac etiology, patient subsequently did have worsening of his respiratory status requiring intubation and concern for possible aspiration. 2sputum culture grew Corynebacterium more likely colonization 3patient to continue local wound care with Medihoney to the left thigh wound with a slough rest of the wound with a dry necrotic area to keep them dry and of the pressure. 4-patient is slowly clinically improving and will continue with the Zosyn white count is mildly elevated and will monitor closely Time with Patient: Less than 30
[2021-08-30] MEDS: IPRATROPIUM-ALBUTEROL 3 ML NEB INHALATION SCH ×4 (07:10→20:23)
[2021-08-30] MEDS: BUDESONIDE 1 MG/2 ML NEBU INHALATION SCH ×2 (07:11→20:23)
[2021-08-30] MEDS: FORMOTEROL FUMARATE 20 MCG/2 ML NEBU INHALATION SCH ×2 (07:11→20:23)
[2021-08-30] MEDS: methylPREDNISolone SOD SUCCI 40 MG/ML 1 ML VIAL IV SCH ×3 (08:39→23:40)
[2021-08-30] MEDS: FAMOTIDINE 20 MG TAB PO SCH (08:39)
[2021-08-30] MEDS: amLODIPine 10 MG TAB PO SCH (08:39)
[2021-08-30] MEDS: AMIODARONE 200 MG TAB PO SCH ×2 (08:39→20:34)
[2021-08-30] MEDS: METOPROLOL TARTRATE 50 MG TAB PO SCH ×2 (08:39→20:34)
[2021-08-30] MEDS: PIPERACILLIN-TAZOBACTAM 3.375 GM in SODIUM CHLORIDE 0.9% 100 ML IVPB SCH ×3 (08:39→23:39)
--- NOTE | 2021-08-30 08:39 | P.PN ---
Subjective Patient remains in sinus rhythm with controlled ventricular rate. His resting comfortably in bed appears quite debilitated. Has a nonhealing ulcer over the right leg and also has a decubitus ulcer over the hip area. He denies any new symptoms. Does not have chest pain or difficulty in breathing. Labs yesterday showed a potassium of 4.1 and creatinine of 0.75 On exam heart rate is 70 bpm respirators 20 blood pressure is 120/70 chest exam reveals diminished air entry bilaterally heart exam reveals first and second heart sounds and a systolic murmur at the low flow sternal border abdomen is soft examination extremities reveals bilateral pitting edema diminished pulses chronic stasis changes and a decubitus ulcer over the lateral aspect of the left right leg Persistent atrial fibrillation Continue current medications Not an anticoagulant because of concerns about anemia Objective - Vital Signs Vital signs: Vital Signs Temp 98.3 F 08/30/21 02:00 Pulse 71 08/30/21 07:34 Resp 22 08/30/21 07:34 BP 151/53 08/30/21 02:00 Pulse Ox 97 08/30/21 07:11 FiO2 35 08/30/21 07:11 Intake & Output 08/29/21 08/30/21 08/30/21 18:59 06:59 18:59 Intake Total 1540 1320 Output Total 500 560 Balance 1040 760 Weight 59.9 kg 60.6 kg Intake: IV 1440 1320 Dextrose 5% in Water 1, 1200 1100 000 ml @ 100 mls/hr IV . Q10H [facility] Rx#:[id number] Sodium Chloride 0.9% 1, 240 220 000 ml @ 20 mls/hr IV . Q24H [facility] Rx#:[id number] Intake, IV Titration 100 Amount Piperacillin-Tazobactam 3 100 .375 gm In Sodium Chloride 0.9% 100 ml @ 25 mls/hr IVPB Q8HR [facility] Rx# :[id number] Output: Urine 500 560 Other: Voiding Method Indwelling Catheter Indwelling Catheter Indwelling Catheter # Bowel Movements 1 ABP, PAP, CO, CI - Last Documented Arterial Blood Pressure 174/34 - Labs CBC & Chem 7: 08/29/21 06:45 08/29/21 06:45 Labs: Abnormal Lab Results - Last 24 Hours (Table) 08/29/21 08/29/21 08/29/21 Range/Units 06:45 11:20 11:33 Chloride 112 H (98-107) mmol/L BUN 38 H (9-20) mg/dL Glucose 126 H (74-99) mg/dL POC Glucose (mg/dL) 209 H 203 H (75-99) mg/dL Calcium 7.8 L (8.4-10.2) mg/dL 08/29/21 08/30/21 Range/Units 17:33 05:19 Chloride (98-107) mmol/L BUN (9-20) mg/dL Glucose (74-99) mg/dL POC Glucose (mg/dL) 179 H 153 H (75-99) mg/dL Calcium (8.4-10.2) mg/dL
[2021-08-30] MEDS: DEXTROSE 5% IN WATER 1,000 ML IV SCH ×2 (08:48→23:40)
[2021-08-30] MEDS ORDERED: PIPERACILLIN-TAZOBACTAM 3.375 GM in SODIUM CHLORIDE 0.9% 100 ML IVPB STA (09:55)
[2021-08-30 11:50] LABS: ALT 26 U/L (4-49); AST 13 U/L (17-59); African American GFR (CKD) >90 (>60 ml/min/1.73 sqM); Alkaline Phosphatase 35 U/L (38-126); Anion Gap 4 mmol/L; Blood Urea Nitrogen 27 mg/dL (9-20); Calcium 7.4 mg/dL (8.4-10.2); Carbon Dioxide 28 mmol/L (22-30); Chloride 104 mmol/L (98-107); Glucose 136 mg/dL (74-99); Non-African American GFR(CKD) >90 (>60 ml/min/1.73 sqM); Sodium 136 mmol/L (137-145); Total Bilirubin 0.5 mg/dL (0.2-1.3); Total Protein 3.8 g/dL (6.3-8.2)
[2021-08-30 11:50] LABS: Glucose,Whole Blood 156 mg/dL (75-99)
[2021-08-30 12:36] LABS: Anisocytosis Moderate; Basophils % (A) 0 %; Eosinophils # (A) 0.2 k/uL (0-0.7); Eosinophils % (A) 1 %; Lymphocytes # (A) 0.2 k/uL (1.0-4.8); Lymphocytes % (A) 1 %; MCH 31.3 pg (25.0-35.0); MCHC 32.3 g/dL (31.0-37.0); Macrocytosis Moderate; Monocytes # (A) 0.4 k/uL (0-1.0); Monocytes % (A) 2 %; Neutrophils # (A) 15.8 k/uL (1.3-7.7); Neutrophils % (A) 95 %; Platelet Count 209 k/uL (150-450); RBC 2.05 m/uL (4.30-5.90); RDW 22.8 % (11.5-15.5); WBC 16.7 k/uL (3.8-10.6)
[2021-08-30 12:41] LABS: HCT 19.9 % (39.0-53.0); HGB 6.4 gm/dL (13.0-17.5)
--- NOTE | 2021-08-30 13:04 | P.PN ---
Progress Note - Text Progress Note Date: 08/30/21 The patient is extubated. At a length discussion with the patient's regarding lower extremity debridement. The patient's does not wish to have surgery performed this time. She feels the patient is to week. The patient will K receive supportive care.
--- NOTE | 2021-08-30 13:45 | P.PN ---
Subjective Progress Note Date: 08/30/21 Principal diagnosis: Acute hypoxic and hypercapnic respiratory failure secondary to acute exacerbation of COPD 08/28 2021, the patient is extubated. With extubation process yesterday and the patient extubated successfully to a BiPAP. Note that he was also on Precedex for agitation and the Precedex is being gradually weaned off and currently is down to 0.3 mcg/kg/h. He is unresponsive. Extremely weak, barely able to move his fingers and toes. He is talking. He is breathing comfortably and is currently on oxygen at 2 L per minute nasal cannula. His mouth is dry and is also requesting for some milk. Family were at the bedside yesterday. The plan is a DNR/DNI CODE STATUS with no intentions 40 intubation. Llanos catheter is in place. Continues to have intermittent edema in all 4 extremities. The patient seems 40 mg of Lasix yesterday and the patient has been producing adequate amount of urine output. Nevertheless, the sodium level is up to 149 and the patient's current IV fluids are in the form of D5W at the rate of 50 mL an hour. The sodium level has not changed considerably since yesterday. The white cell count at 13.5. Hemoglobin is at 7.1. Potassium level is at 3.6. BUN is at 48 with a creatinine of 0.8. The wounds are essentially unchanged. He is afebrile. He is on empiric antibiotics and he is currently on IV Zosyn. Remains on bronchodilators. He remains on steroids. Extremely debilitated. Extubated this point in time. Communicating. At times angry. On 08/29/2021 patient seen in follow-up in the intensive care unit, she was rollins ccessfully weaned and extubated from mechanical ventilator on 08/26/2021 to BiPAP support. BiPAP support has been gradually weaned off, and patient is currently on 2 L of oxygen a pulse ox of 98%, breathing comfortably, BiPAP support has been off since 10:00 yesterday on 08/28/2021, patient is breathing comfortably, no worsening dyspnea, he is quite weak and debilitated, but appears to be in no acute distress. His last chest x-ray from 08/27/2021 showed small left pleural effusion, and mild interval improvement in the degree of pleural fluid. Today's labs have been reviewed, his white blood cell count is 15.2, hemoglobin is 7.0, sodium is 144, potassium is 4.1, chloride is 112, B1 is 30, creatinine 0.75. Vision has received a dose of IV Lasix yesterday 40 mg 1. To produce 2.6 L in the urine output however he still remains in positive net fluid balance. He is currently receiving D5W at a rate of 100 ML per hour, his oral intake has been poor despite encouragement and assistance with his meals. No fever or chills overnight. Patient is not requiring any vasopressor support although at times she does become hypertensive, and cardiology is following, 50 mg of losartan at bedtime has been added. Patient remains on IV steroids with Solu-Medrol 60 mg every 6 hours. Remains on Zosyn for empiric antibiotic coverage. This cultures have been negative, with exception of sputum which showed Corynebacterium stratum which is possibly related to colonization. No nausea or vomiting, no diarrhea. He is getting local wound care to his wound on his right lower extremity, and his sacral and left hip area. Reevaluated today on 08/30/2021, patient remains in the ICU as an overflow. Patient was successfully extubated from mechanical ventilation on 08/26/2021, he is now on room air and his O2 saturation is 91%. Patient looks extremely frail, he has poor functional status, and apparently his surgery/debridement was canceled mostly because of the family's concern about the patient tolerating the surgery or not. And wanted to discuss this more with the surgeon. Hence debrid ement was not performed. Patient is now on overflow, waiting for a bed on the medical surgical floor. Remains on bronchodilators remains on antibiotics, IV fluid, down to 75 mL per hour. I believe the patient should be considered for possibly hospice as the patient seems to be a failure to thrive. Patient is not eating much, and to my understanding family declined a PEG tube placement WBC count today is 16.7 hemoglobin is 6.4. May consider transfusing the patient a unit of packed RBCs hemoglobin has been holding around 7 over the last 1 week. Chest x-ray last week was basically unremarkable. And he had a small tiny left pleural effusion Objective - Vital Signs Vital signs: Vital Signs Temp 98.2 F 08/30/21 08:00 Pulse 73 08/30/21 10:43 Resp 28 H 08/30/21 10:43 BP 146/53 08/30/21 08:00 Pulse Ox 91 L 08/30/21 08:00 FiO2 35 08/30/21 07:11 Intake & Output 08/29/21 08/30/21 08/30/21 18:59 06:59 18:59 Intake Total 1540 1320 600 Output Total 500 560 300 Balance 1040 760 300 Weight 59.9 kg 60.6 kg Intake: IV 1440 1320 600 Dextrose 5% in Water 1, 1200 1100 600 000 ml @ 75 mls/hr IV . [id number] [facility] Rx#:[id number] Sodium Chloride 0.9% 1, 240 220 000 ml @ 20 mls/hr IV . Q24H [facility] Rx#:[id number] Intake, IV Titration 100 Amount Piperacillin-Tazobactam 3 100 .375 gm In Sodium Chloride 0.9% 100 ml @ 25 mls/hr IVPB Q8HR [facility] Rx# :[id number] Output: Urine 500 560 300 Other: Voiding Method Indwelling Catheter Indwelling Catheter Indwelling Catheter # Bowel Movements 1 ABP, PAP, CO, CI - Last Documented Arterial Blood Pressure 174/34 - Exam Physical Exam: Revealed 71-year-old white male, frail looking, in no distress, on room air at present. Head: Atraumatic, normocephalic. HEENT:[Neck is supple.] [No neck masses.] [No thyromegaly.] [No JVD.] Dry mucous membranes noted. Chest: Symmetrical chest expansion, diminished breath sounds at the bases no crackles or rhonchi or wheezes. Cardiac Exam: [Normal S1 and S2, no S3 gallop, no murmur.] Abdomen: [Soft, nontender, no megaly, no rebound, no guarding, normal bowel sounds.] Extremities: No clubbing edema or cyanosis. Skin: No rashes. Large-sized eschar over the right lower extremity with wound edges draining some yellow purulent material at the distal edges, and patient al so has various wounds and skin tears on his heels, forearms and legs. She also has stage III sacral ulcer, and left hip ulcer. Neurological Exam: Looks frail and weak, generally weak and debilitated. Mental status seems to be intact no gross deficit except weakness Psychiatric: Depressed mood, flat affect, normal mental status - Labs CBC & Chem 7: 08/30/21 12:07 08/30/21 10:59 Labs: Abnormal Lab Results - Last 24 Hours (Table) 08/29/21 08/30/21 08/30/21 Range/Units 17:33 05:19 10:59 WBC (3.8-10.6) k/uL RBC (4.30-5.90) m/uL Hgb (13.0-17.5) gm/dL Hct (39.0-53.0) % RDW (11.5-15.5) % Neutrophils # (1.3-7.7) k/uL Lymphocytes # (1.0-4.8) k/uL Sodium 136 L (137-145) mmol/L BUN 27 H (9-20) mg/dL Glucose 136 H (74-99) mg/dL POC Glucose (mg/dL) 179 H 153 H (75-99) mg/dL Calcium 7.4 L (8.4-10.2) mg/dL AST 13 L (17-59) U/L Alkaline Phosphatase 35 L (38-126) U/L Total Protein 3.8 L (6.3-8.2) g/dL Albumin 2.0 L (3.5-5.0) g/dL 08/30/21 08/30/21 Range/Units 11:48 12:07 WBC 16.7 H (3.8-10.6) k/uL RBC 2.05 L (4.30-5.90) m/uL Hgb 6.4 L* (13.0-17.5) gm/dL Hct 19.9 L* (39.0-53.0) % RDW 22.8 H (11.5-15.5) % Neutrophils # 15.8 H (1.3-7.7) k/uL Lymphocytes # 0.2 L (1.0-4.8) k/uL Sodium (137-145) mmol/L BUN (9-20) mg/dL Glucose (74-99) mg/dL POC Glucose (mg/dL) 156 H (75-99) mg/dL Calcium (8.4-10.2) mg/dL AST (17-59) U/L Alkaline Phosphatase (38-126) U/L Total Protein (6.3-8.2) g/dL Albumin (3.5-5.0) g/dL Assessment and Plan Assessment: Impression: Acute on chronic hypoxic and hypercapnic respiratory failure requiring intubation and mechanical ventilation. Patient was extubated on 08/27, and since then his CODE STATUS was changed to DO NOT RESUSCITATE. Atrial flutter with RVR. Remains on amiodarone and Lovenox. 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 Chronic hypoxic and hypercapnic respiratory failure Former smoker. Nonhealing bilateral lower extremities ulcers Chronic cachexia and medical debility. Benign essential hypertension Dyslipidemia Hypothyroidism Multiple nonhealing wounds on the right lower extremity and stage III sacral decubitus ulcer and multiple skin tears. Recommendation: Continue present medications. Continue bronchodilators. Continue antibiotics. Continue aspiration precautions. Continue steroids presently on Solu-Medrol 40 mg IV push every 8 hours Surgery to evaluate for possible if family is agreeable Consider hospice placement I believe this would be appropriate considering the patient seems to be a failure to thrive, Continue DO NOT RESUSCITATE CODE STATUS Transfer patient out of the ICU once a medical bed is available. Time with Patient: Less than 30
[2021-08-30 17:58] LABS: Glucose,Whole Blood 153 mg/dL (75-99)
--- NOTE | 2021-08-30 19:39 | P.PN ---
Subjective Progress Note Date: 08/30/21 This is a pleasant 71 years old male with past medical history of COPD, Hyperlipidemia, Hypertension, Osteoarthritis , Metabolic Encaphalopathy, Acute kidney failure with tubular necrosis, Cachexia, Chronic non-pressure ulcer of back, Rhabdomylosis was sent from [facility] with increased weakness and lethargy over the last 2-3days Patient is poor historian but as per staff with . his he has been a shelter for the last 1-2 months and his been confused. pt looks cachectic and very frail, he is oriented to time ,place and person , but has no denture, his voice is muffled because of that he is been complaining from dyspnea and chest pain which is mild in the middle nonradiating and associated with very little cough. He says his shortness of breath was worse over the last 1 day and a half. Denies any abdominal pain or vomiting or diarrhea but he has low appetite. He denies any choking or swallow problem but he has no denture so we'll check for swallow evaluation Patient looks tachypneic with bilateral chest with some limited air entry but no ricardo wheezing. Patient states that he quit smoking about 10 years ago, used to smoke for more than 10 years. No alcohol or illicit drugs. He has multiple pressure ulcers he has one large pressure ulcers on the right leg laterally with drying scab Or any dressing . Also has multiple pressure ulcers with black eschar on both heels and left foot. The surrounding skin looks intact with no redness or swelling. On admission he was slightly tachypneic on 20, afebrile and heart rate was 84 and blood pressure 141/64, however overnight his blood pressure dropped with systolic 90s to 100, currently his blood pressure 104/68, also became tachycardic with heart rate 04/17/2049. He was saturating 9920% on 2-3 L oxygen via nasal cannula. He is mildly hypothermic at 97.2 His WBC is elevated at 17.7. Hemoglobin is 10.0. Platelet count 258. INR 0.9. BUN is 32 and creatinine 0.9. Troponin is 0.02 and less than 0.01. Glucose was on the low side 57 on admission and currently is 201. Urinalysis showed 1+ protein with no evidence of infection. Patient started on steroids and got a breathing treatment, IV fluids and started on amiodarone drips and Lovenox in the emergency room. D-dimer was elevated, therefore CTA of the chest was done which showed negative for pulmonary embolism, emphysematous changes with small pleural effusion. Also there is focal scattered versus speculated nodule in the right upper lobe we ordered stat CT of the brain and CT of the chest to rule out pulmonary embolism given his hypotension, tachycardia and tachypnea with elevated d-dimer. Also with mild hypoxia suspected. However patient confused per staff when he came in and could not be started on heparin drip before we rule out intracranial bleed before CT of the brain is also ordered with CT of the chest. Both tests came back negative 08/19/2021 Patient today during morning rounds found obtunded and responsive and unarousable with impending respiratory failure and he was transferred to the intensive care unit he got intubated and placed on mechanical ventilation with pulmonary/critical care team following closely and held with and management. His WBCs 11.6, hemoglobin 8.6, creatinine 1.4. chest x-ray sewn bilateral worsening infiltrates especially in the lower zones mood versus worsening infection His continued counseling atrial 60 mg, antibiotic form of Zosyn and amiodarone drip for developing A. fib and RVR. High-dose tenderness on hold 08/20/2021 Patient remains in the ICU intubated and sedated, he still tachypneic with respiratory rate of 28, his PEEP of 8.0 today. His hemoglobin is 7.1, creatinine 1.4. Remains on IV Solu-Medrol and Zosyn. Also is on amiodarone drip, and normal saline at 100 mL per hour. He still has bilateral leg ulceration with dried surface. Ultrasound showing evidence of chronic left DVT, currently he is on Lovenox 50 mg twice daily 08/21/2021 patient remains in the ICU sedated and intubated with pulmonary/critical care team following him closely and help with vent management . He is still on high PEEP relatively at 8 and FiO2 of 35%. He is tachypneic and tachycardic WBC 6.6, hemoglobin 7.5, creatinine improvement 1.2, chest x-ray showing no change. He remains on Zosyn, IV Solu-Medrol and normal saline 08/22/2021 Patient continues to be in the MICU with multiple medical consultations following. Pulmonary intensivists following and patient is maintained on IV steroids, duonebs, and IV antibiotics and will continue. Patient continues on vent with an FI02 of 30% and peep being weaned somewhat from 8 to 6 today. Chest xray is similar to previous day with no real improvement. Patient is afebrile. Patient overall prognosis is extremely poor and guarded and code status to be addressed. Cardiology following as well and have increased the metoprolol and continues on amiodarone. 08/23/2021 Patient continues to be in the ICU on mechanical vent with an FI02 of 30% and p eep is 6. Patient on sedation with holidays being conducted. Not tolerating and no plan for extubation at this time. General surgery consulted for right willis ulcer that has a large scab over it and apparently now some purulent drainage is noted. Possible debridement of the wound and recommend obtaining cultures. Patient is afebrile and sodium is elevated and IV fluids being transitioned to D5 in Water. Recommend repeat labs. 08/24/2021 Patient continues to be closely monitored in the medical ICU and maintained on mechanical vent. Chest x-ray shows persistent patchy opacification the left mid and lower lung zone slightly more prominent today with no progressive right pulmonary consolidation and grossly stable pleural effusions and also incidental finding of NG tube that needs further advancing into the stomach. Patient is continued on enteral nutrition via NG. Patient remains on mechanical vent with an FiO2 of 30% and PEEP is 6. Patient also continues on D5 in water and sodium is 142 today with a potassium of 3.9, creatinine is 0.87. Hemoglobin is 7.4 and WBC is 14.8 which is on an upward trend. Patient is afebrile. Patient continues on breathing inhalational treatments along with IV steroids 60 every 6 and IV Zosyn and is sedated with propofol at this time. Patient is tentatively scheduled for debridement of the right willis today. 08/25/2021 Patient is seen in follow-up in the ICU with multiple medical consultations following. Patient continues on mechanical vent with an FiO2 of 30% and PEEP is 6. Patient is currently off sedation and on Precedex low-dose. Attempting CPAP trials per pulmonary. Contemplating possible tracheostomy family continues to wish for the patient to remain full code. Patient is high risk for remaining on mechanical ventilation given his extensive comorbidities. Per nursing staff patient was not following commands although on exam right are asked patient to nod head yes or no is having any pain and patient nodded had no. Will then look around the room and stare off at the coats. Patient is extremely cachectic and ill-appearing and lethargic. Pulmonary following along with general surgery and plan is for possible debridement of that right willis in the a.m. Chest x-ray shows less prominent infiltration the left lower lung zone and unchanged remainder of the lungs. Patient also continues on breathing inhalational loyda tments along with IV steroids and IV Zosyn. Recommend electrolyte replacement per protocol and were within normal limits today. WBC mildly elevated and trending upward at 15.2, hemoglobin is 7.8. Patient is afebrile. 08/26/2021 Patient continues in the ICU and currently off pressor support. Patient is on low dose precedex and assessing for weaning parameters and currently maintained on cpap assist mode with 5/5 settings. When on vent Fio2 is 30% with a peep of 6. Patient family has made the patient no code and has cancelled the debridement of the right willis wound with general surgery. Possible extubation in the near future and no plans for reintubation. Patient WBC trending down and proc alcitonin is 0.07 and maintained on IV abx with ID following. Sputum likely colonization. Overall prognosis is poor and guarded. Patient is afebrile 08/27/2021 Patient seen on follow-up in the ICU, he is currently intubated on mechanical ventilation, pressure support of 5, PEEP of 6 ABG from today shows pH 7.37, pCO2 50, pO2 170. He is currently on Precedex, but is alert opening his eyes, however today shows his [place]nat[place] [address] receiving IV hydration with D5 water. Currently hemodynamically stable, no fevers. Continues antimicrobial therapy of Zosyn as coronary bacterium growing in the sputum is continued on systemic steroids. Stable creatinine 0.87, blood sugars been running in the 200s he is on sliding scale coverage. 08/28/2021 Patient is extubated patient has diminished breath sounds but not wheezing at this time. 08/29/2021 Patient is seen in follow-up this morning awaiting transfer out of ICU as patient has been downgraded to [facility] and awaiting a bed. Patient was recently extubated and currently maintained on 2 L via nasal cannula. Patient is eating and tolerating an oral intake remains poor but is fair. Family at the bedside reports that they would like [facility] on the [place] when stabilized and discharged and social work following and working on accepting facility. Gen. surgery on standby in the event family changes their mind about debridement of the wounds. WBCs elevated at 15.2 and patient remains on IV antibiotics. Sodium elevated at 144 and will continue D5 in water and follow-up with repeat labs and also recommended chest x-ray in the morning. Patient also continues with DuoNeb treatments along with IV steroids which are being decreased by pulmonary. Will follow-up on labs tomorrow and discuss with pulmonary about discharge planning. Family at the bedside also adamant about changing providers as they are not happy with the current provider. 08/30/2021 Patient is seen today and hemoglobin low today at 6.4and will transfuse a unit of PRBC. Family refusing any further surgical treatment of wounds at this time as they feel patient is too weak. Patient awaiting transfer out of the ICU. Patient accepted at [facility] and will discuss further with about overall poor prognosis and possible hospice care. Social work following. Patient is afebrile and currently maintained on IV abx. IV steroids being titrated down. Patient denies chest pain or worsening shortness of breath. Review of systems: Constitutional: reports of fatigue, no fever, or chills Cardiovascular: No reports of chest pain or palpitations Respiratory: No reports of worsening shortness of breath or cough GI: No reports of nausea, vomiting, or diarrhea : No reports of dysuria or retention Neurovascular: reports of weakness All medications have been reviewed Active Medications Acetaminophen (Acetaminophen Tab 325 Mg Tab) 650 mg PO Q4H PRN PRN Reason: Pain or Fever > 100.5 Albuterol/Ipratropium (Ipratropium-Albuterol 3 Ml Neb) 3 ml INHALATION RT-Q4H PRN PRN Reason: Shortness Of Breath Or Wheezing Albuterol/Ipratropium (Ipratropium-Albuterol 3 Ml Neb) 3 ml INHALATION RT-QID [facility] Last Admin: 08/30/21 16:21 Dose: 3 ml Amiodarone HCl (Amiodarone 200 Mg Tab) 200 mg PO BID [facility] Last Admin: 08/30/21 08:39 Dose: 200 mg Amlodipine Besylate (Amlodipine 10 Mg Tab) 10 mg PO DAILY [facility] Last Admin: 08/30/21 08:39 Dose: 10 mg Budesonide (Budesonide 1 Mg/2 Ml Nebu) 1 mg INHALATION RT-BID [facility] Last Admin: 08/30/21 07:11 Dose: 1 mg Famotidine (Famotidine 20 Mg Tab) 20 mg PO DAILY [facility] Last Admin: 08/30/21 08:39 Dose: 20 mg Formoterol Fumarate (Formoterol Fumarate 20 Mcg/2 Ml Nebu) 20 mcg INHALATION RT-BID [facility] Last Admin: 08/30/21 07:11 Dose: 20 mcg Hydromorphone HCl (Hydromorphone 1 Mg/Ml 1 Ml Syringe) 1 mg IVP Q2HR PRN PRN Reason: Pain Last Admin: 08/27/21 01:43 Dose: 1 mg Dextrose/Water (Dextrose 5%-Water Iv Soln) 1,000 mls @ 75 mls/hr IV .[id number] [facility] Last Admin: 08/30/21 08:48 Dose: 100 mls/hr Piperacillin Sod/Tazobactam (Sod 3.375 gm/ Sodium Chloride) 100 mls @ 25 mls/hr IVPB Q8HR [facility]; Protocol Last Admin: 08/30/21 14:44 Dose: 25 mls/hr Insulin Aspart (Insulin Aspart (Novolog) 100 Unit/Ml Vial) 0 unit SQ Q6HR [facility]; Protocol Last Admin: 08/30/21 18:37 Dose: 1 unit Levothyroxine Sodium (Levothyroxine 50 Mcg Tab) 50 mcg PO DAILY@0500 [facility] Last Admin: 08/30/21 05:22 Dose: 50 mcg Losartan Potassium (Losartan 50 Mg Tab) 50 mg PO HS [facility] Last Admin: 08/29/21 20:05 Dose: 50 mg Methylprednisolone Sodium Succinate (Methylprednisolone Sod Succi 40 Mg/Ml 1 Ml Vial) 40 mg IV Q8HR [facility] Last Admin: 08/30/21 14:44 Dose: 40 mg Metoprolol Tartrate (Metoprolol Tartrate 50 Mg Tab) 100 mg PO BID [facility] Last Admin: 08/30/21 08:39 Dose: 100 mg Miscellaneous Information (Magnesium Replacement Protocol 1 Each Misc) 1 each MISCELLANE DAILY PRN; Protocol PRN Reason: Per Protocol Miscellaneous Information (Potassium Replacement Protocol 1 Each Misc) 1 each MISCELLANE DAILY PRN; Protocol PRN Reason: Per Protocol Naloxone HCl (Naloxone 0.4 Mg/Ml 1 Ml Vial) 0.2 mg IV Q2M PRN PRN Reason: Opioid Reversal Tramadol HCl (Tramadol 50 Mg Tab) 50 mg PO Q6H PRN PRN Reason: Pain Last Admin: 08/25/21 20:18 Dose: 50 mg Physical Exam: GENERAL: The patient is alert and recently extubated currently maintained on room air today. Patient is awake. Thin built, ill-appearing, cachectic HEENT: Pupils are round and equally reacting to light. EOMI. No scleral icterus. No conjunctival pallor. Normocephalic, atraumatic. No pharyngeal erythema. No thyromegaly. CARDIOVASCULAR: S1 and S2 present. No murmurs, rubs, or gallops. PULMONARY: Decreased air entry with scattered diffuse rhonchi ABDOMEN: Soft, nontender, nondistended, normoactive bowel sounds. No palpable organomegaly. MUSCULOSKELETAL: No joint swelling or deformity. EXTREMITIES: No cyanosis, clubbing, or pedal edema. Multiple bilateral leg ulcers including both heels and right lateral willis with large scabbing noted over entire surface of the wound. some surrounding redness noted and continued purulent drainage noted from the willis. No evidence of overt surrounding cell ulitis NEUROLOGICAL: Gross neurological examination did not reveal any focal deficits. Diffusely weak SKIN: No rashes. no petechiae. Assessment: Acute hypoxic respiratory failure requiring intubation and mechanical ventilation secondary to End stage COPD, extubated on 08/28/2021 COPD with exacerbation Multiple pressure ulcers with suspected infection Chronic anemia Hypovolemic hyponatremia Aflutter with RVR, currently rate controlled Moderate calorie malnutrition with a BMI of 21.1 multiple leg wounds focal scar versus speculated nodule in the right upper lobe, will need outpatient PET scan History of hypertension, currently he is hypotensive Hyperlipidemia Dehydration Chronic altered mental status with some elements of acute related to metabolic encephalopathy. Possible dementia History of osteoarthritis History of chronic nonpressure ulcer of the back DVT prophylaxis: Subcutaneous Lovenox GI Prophylaxis: Pepcid No code Plan: Recommend to continue on antibiotics and infectious disease is following. family cancelled the debridement and feels patient is too weak and changed code status to no code. To discuss further about possible hospice care Patient was recently extubated on 08/28/2021 and currently maintained on room air and doing relatively well. Patient is a downgrade and transfer out of the ICU once a bed becomes available Patient accepted at [facility] with possible discharge in 24-48 hours. Recommend to continue on IV steroids along with breathing inhalational treatments. IV steroids titrated down with pulmonary following. Recommend follow-up with am labs as hemoglobin was 6.4 today, will give one unit of PRBC Pulmonary and cardiology following Overall Prognosis is extremely poor and guarded CODE STATUS no code per The impression and plan of care has been dictated by Lucy Reyes, Nurse Practitioner as directed. Dr. Navi MD I have performed a history and examination and MDM of this patient, discussed the same with the dictator, and agree with the dictator's assessment and plan as written ,documented as a scribe. Based on total visit time, I have performed more than 50% of the visit. Objective - Vital Signs Vital signs: Vital Signs Temp 98.2 F 08/30/21 08:00 Pulse 78 08/30/21 08:00 Resp 20 08/30/21 08:00 BP 146/53 08/30/21 08:00 Pulse Ox 91 L 08/30/21 08:00 FiO2 35 08/30/21 07:11 Intake & Output 08/29/21 08/30/21 08/30/21 18:59 06:59 18:59 Intake Total 1540 1320 100 Output Total 500 560 125 Balance 1040 760 -25 Weight 59.9 kg 60.6 kg Intake: IV 1440 1320 100 Dextrose 5% in Water 1, 1200 1100 100 000 ml @ 100 mls/hr IV . Q10H [facility] Rx#:[id number] Sodium Chloride 0.9% 1, 240 220 000 ml @ 20 mls/hr IV . Q24H [facility] Rx#:[id number] Intake, IV Titration 100 Amount Piperacillin-Tazobactam 3 100 .375 gm In Sodium Chloride 0.9% 100 ml @ 25 mls/hr IVPB Q8HR [facility] Rx# :[id number] Output: Urine 500 560 125 Other: Voiding Method Indwelling Catheter Indwelling Catheter Indwelling Catheter # Bowel Movements 1 ABP, PAP, CO, CI - Last Documented Arterial Blood Pressure 174/34 - Labs CBC & Chem 7: 08/30/21 12:07 08/30/21 10:59 Labs: Abnormal Lab Results - Last 24 Hours (Table) 08/29/21 08/29/21 08/29/21 Range/Units 11:20 11:33 17:33 POC Glucose (mg/dL) 209 H 203 H 179 H (75-99) mg/dL 08/30/21 Range/Units 05:19 POC Glucose (mg/dL) 153 H (75-99) mg/dL
[2021-08-30] MEDS: LOSARTAN 50 MG TAB PO SCH (20:34)
[2021-08-30 23:24] LABS: Glucose,Whole Blood 167 mg/dL (75-99)
[2021-08-31 05:51] LABS: Glucose,Whole Blood 137 mg/dL (75-99)
[2021-08-31] MEDS: LEVOTHYROXINE 50 MCG TAB PO SCH (05:52)
[2021-08-31] MEDS: INSULIN ASPART (NovoLOG) 100 UNIT/ML VIAL SQ SCH ×3 (05:52→18:08)
[2021-08-31] MEDS: BUDESONIDE 1 MG/2 ML NEBU INHALATION SCH ×2 (07:41→20:28)
[2021-08-31] MEDS: IPRATROPIUM-ALBUTEROL 3 ML NEB INHALATION SCH ×4 (07:42→20:27)
[2021-08-31] MEDS: FORMOTEROL FUMARATE 20 MCG/2 ML NEBU INHALATION SCH ×2 (07:42→20:27)
[2021-08-31] MEDS: PIPERACILLIN-TAZOBACTAM 3.375 GM in SODIUM CHLORIDE 0.9% 100 ML IVPB SCH ×2 (08:00→11:56)
[2021-08-31] MEDS: AMIODARONE 200 MG TAB PO SCH ×2 (08:01→20:42)
[2021-08-31] MEDS: FAMOTIDINE 20 MG TAB PO SCH (08:01)
[2021-08-31] MEDS: METOPROLOL TARTRATE 50 MG TAB PO SCH ×2 (08:01→20:41)
[2021-08-31] MEDS: amLODIPine 10 MG TAB PO SCH (08:01)
[2021-08-31] MEDS: methylPREDNISolone SOD SUCCI 40 MG/ML 1 ML VIAL IV SCH (08:01)
[2021-08-31 08:21] LABS: Anisocytosis Moderate; Basophils % (A) 0 %; Eosinophils % (A) 0 %; HCT 25.8 % (39.0-53.0); Lymphocytes # (A) 0.2 k/uL (1.0-4.8); Lymphocytes % (A) 1 %; MCH 30.4 pg (25.0-35.0); MCHC 32.7 g/dL (31.0-37.0); MCV 93.2 fL (80.0-100.0); Macrocytosis Slight; Mean Platelet Volume 11.1; Monocytes # (A) 0.2 k/uL (0-1.0); Monocytes % (A) 2 %; Neutrophils # (A) 14.9 k/uL (1.3-7.7); Neutrophils % (A) 97 %; Platelet Count 175 k/uL (150-450); Poikilocytosis Slight; RBC 2.77 m/uL (4.30-5.90); RDW 22.5 % (11.5-15.5); WBC 15.4 k/uL (3.8-10.6)
[2021-08-31 08:24] LABS: HGB 8.4 gm/dL (13.0-17.5)
[2021-08-31 08:40] LABS: ALT 27 U/L (4-49); AST 13 U/L (17-59); African American GFR (CKD) >90 (>60 ml/min/1.73 sqM); Albumin 2.1 g/dL (3.5-5.0); Alkaline Phosphatase 48 U/L (38-126); Anion Gap 0 mmol/L; Blood Urea Nitrogen 23 mg/dL (9-20); Calcium 7.4 mg/dL (8.4-10.2); Carbon Dioxide 32 mmol/L (22-30); Chloride 105 mmol/L (98-107); Glucose 131 mg/dL (74-99); Non-African American GFR(CKD) >90 (>60 ml/min/1.73 sqM); Potassium 3.2 mmol/L (3.5-5.1); Sodium 137 mmol/L (137-145); Total Bilirubin 0.9 mg/dL (0.2-1.3); Total Protein 4.1 g/dL (6.3-8.2)
[2021-08-31] MEDS: POTASSIUM CHLORIDE ER 20 MEQ TAB.ER PO SCH ×2 (09:29→11:56)
[2021-08-31 11:37] LABS: Glucose,Whole Blood 240 mg/dL (75-99)
[2021-08-31] MEDS: DEXTROSE 5% IN WATER 1,000 ML IV SCH (11:55)
--- NOTE | 2021-08-31 12:19 | PN ---
PROGRESS NOTE Dani is a 71-year-old gentleman who is in the intensive care unit, resting comfortably, has a nonhealing ulcer over the right leg and decubitus ulcer over the hip area. He is more alert and is free of symptoms. Remains in sinus rhythm. On exam, vital signs are stable. Chest exam reveals good air entry bilaterally. Heart exam reveals first and second heart sounds. No gallop. Examination of extremities reveals evidence of nonhealing ulcer. Labs show that the white cell count is elevated. Hemoglobin is 8.4. Potassium is 3.2 and creatinine is 0.8. Hemoglobin was 6.4 yesterday. ASSESSMENT: 1. Paroxysmal atrial fibrillation. 2. Hypertension. 3. Anemia. PLAN: He is not a candidate for anticoagulation. We will continue current medications. MMODL / IJN: [id number] /
--- NOTE | 2021-08-31 12:22 | P.PN ---
Subjective Progress Note Date: 08/31/21 CHIEF COMPLAINT: Right leg wound HISTORY OF PRESENT ILLNESS: Patient remains in the ICU as an overflow. Patient was extubated from mechanical limitation on 08/26/2021. He remains on room air. Patient is weak. No debridement of right leg wound due to family's concern of patient not tolerating surgery. Afebrile. WBC is 15.4 hemoglobin 6.4 up to 8.4 after blood transfusion platelets are 175 sodium 137 potassium is 3.2 creatinine 0.80 PHYSICAL EXAM: VITAL SIGNS: Reviewed. ABDOMEN: Soft. Nondistended. Extremities right lower leg pressure ulceration with large scab and minimal drainage ASSESSMENT: 1. Right lower leg pressure ulcer PLAN: -Continue to monitor. No surgical intervention planned per family's request. -Continue supportive care Physician Felt Strip Finisher note has been reviewed by physician. Signing provider agrees with the documented findings, assessment, and plan of care. Objective - Vital Signs Vital signs: Vital Signs Temp 98.3 F 08/31/21 12:00 Pulse 77 08/31/21 12:00 Resp 20 08/31/21 12:00 BP 144/53 08/31/21 12:00 Pulse Ox 96 08/31/21 12:00 FiO2 35 08/30/21 07:11 Intake & Output 08/30/21 08/31/21 08/31/21 18:59 06:59 18:59 Intake Total 1420 900 580 Output Total 640 925 200 Balance 780 -25 380 Weight 62.4 kg Intake: IV 1110 900 480 Dextrose 5% in Water 1, 1050 840 450 000 ml @ 75 mls/hr IV . [id number] [facility] Rx#:[id number] Sodium Chloride 0.9% 1, 60 60 30 000 ml @ 20 mls/hr IV . Q24H [facility] Rx#:[id number] Intake, IV Titration 100 Amount Piperacillin-Tazobactam 3 100 .375 gm In Sodium Chloride 0.9% 100 ml @ 25 mls/hr IVPB Q8HR [facility] Rx# :[id number] Blood Product 310 Rc As-1 Unit 310 [id number] Output: Urine 640 925 200 Other: Voiding Method Indwelling Catheter Indwelling Catheter Indwelling Catheter ABP, PAP, CO, CI - Last Documented Arterial Blood Pressure 174/34 - Labs CBC & Chem 7: 08/31/21 08:00 08/31/21 08:00 Labs: Abnormal Lab Results - Last 24 Hours (Table) 08/30/21 08/30/21 08/30/21 Range/Units 12:07 14:00 17:56 WBC 16.7 H (3.8-10.6) k/uL RBC 2.05 L (4.30-5.90) m/uL Hgb 6.4 L* (13.0-17.5) gm/dL Hct 19.9 L* (39.0-53.0) % RDW 22.8 H (11.5-15.5) % Neutrophils # 15.8 H (1.3-7.7) k/uL Lymphocytes # 0.2 L (1.0-4.8) k/uL Potassium (3.5-5.1) mmol/L Carbon Dioxide (22-30) mmol/L BUN (9-20) mg/dL Glucose (74-99) mg/dL POC Glucose (mg/dL) 153 H (75-99) mg/dL Calcium (8.4-10.2) mg/dL AST (17-59) U/L Total Protein (6.3-8.2) g/dL Albumin (3.5-5.0) g/dL Crossmatch See Detail 08/30/21 08/31/21 08/31/21 Range/Units 23:22 05:50 08:00 WBC 15.4 H (3.8-10.6) k/uL RBC 2.77 L (4.30-5.90) m/uL Hgb 8.4 L D (13.0-17.5) gm/dL Hct 25.8 L (39.0-53.0) % RDW 22.5 H (11.5-15.5) % Neutrophils # 14.9 H (1.3-7.7) k/uL Lymphocytes # 0.2 L (1.0-4.8) k/uL Potassium (3.5-5.1) mmol/L Carbon Dioxide (22-30) mmol/L BUN (9-20) mg/dL Glucose (74-99) mg/dL POC Glucose (mg/dL) 167 H 137 H (75-99) mg/dL Calcium (8.4-10.2) mg/dL AST (17-59) U/L Total Protein (6.3-8.2) g/dL Albumin (3.5-5.0) g/dL Crossmatch 08/31/21 08/31/21 Range/Units 08:00 11:35 WBC (3.8-10.6) k/uL RBC (4.30-5.90) m/uL Hgb (13.0-17.5) gm/dL Hct (39.0-53.0) % RDW (11.5-15.5) % Neutrophils # (1.3-7.7) k/uL Lymphocytes # (1.0-4.8) k/uL Potassium 3.2 L (3.5-5.1) mmol/L Carbon Dioxide 32 H (22-30) mmol/L BUN 23 H (9-20) mg/dL Glucose 131 H (74-99) mg/dL POC Glucose (mg/dL) 240 H (75-99) mg/dL Calcium 7.4 L (8.4-10.2) mg/dL AST 13 L (17-59) U/L Total Protein 4.1 L (6.3-8.2) g/dL Albumin 2.1 L (3.5-5.0) g/dL Crossmatch
[2021-08-31] MEDS ORDERED: POTASSIUM CHLORIDE ER 20 MEQ TAB.ER PO STA (12:23)
--- NOTE | 2021-08-31 12:29 | P.PN ---
Subjective Progress Note Date: 08/31/21 Principal diagnosis: Acute hypoxic and hypercapnic respiratory failure secondary to acute exacerbation of COPD 08/28 2021, the patient is extubated. With extubation process yesterday and the patient extubated successfully to a BiPAP. Note that he was also on Precedex for agitation and the Precedex is being gradually weaned off and currently is down to 0.3 mcg/kg/h. He is unresponsive. Extremely weak, barely able to move his fingers and toes. He is talking. He is breathing comfortably and is currently on oxygen at 2 L per minute nasal cannula. His mouth is dry and is also requesting for some milk. Family were at the bedside yesterday. The plan is a DNR/DNI CODE STATUS with no intentions 40 intubation. Llanos catheter is in place. Continues to have intermittent edema in all 4 extremities. The patient seems 40 mg of Lasix yesterday and the patient has been producing adequate amount of urine output. Nevertheless, the sodium level is up to 149 and the patient's current IV fluids are in the form of D5W at the rate of 50 mL an hour. The sodium level has not changed considerably since yesterday. The white cell count at 13.5. Hemoglobin is at 7.1. Potassium level is at 3.6. BUN is at 48 with a creatinine of 0.8. The wounds are essentially unchanged. He is afebrile. He is on empiric antibiotics and he is currently on IV Zosyn. Remains on bronchodilators. He remains on steroids. Extremely debilitated. Extubated this point in time. Communicating. At times angry. On 08/29/2021 patient seen in follow-up in the intensive care unit, she was rollins ccessfully weaned and extubated from mechanical ventilator on 08/26/2021 to BiPAP support. BiPAP support has been gradually weaned off, and patient is currently on 2 L of oxygen a pulse ox of 98%, breathing comfortably, BiPAP support has been off since 10:00 yesterday on 08/28/2021, patient is breathing comfortably, no worsening dyspnea, he is quite weak and debilitated, but appears to be in no acute distress. His last chest x-ray from 08/27/2021 showed small left pleural effusion, and mild interval improvement in the degree of pleural fluid. Today's labs have been reviewed, his white blood cell count is 15.2, hemoglobin is 7.0, sodium is 144, potassium is 4.1, chloride is 112, B1 is 30, creatinine 0.75. Vision has received a dose of IV Lasix yesterday 40 mg 1. To produce 2.6 L in the urine output however he still remains in positive net fluid balance. He is currently receiving D5W at a rate of 100 ML per hour, his oral intake has been poor despite encouragement and assistance with his meals. No fever or chills overnight. Patient is not requiring any vasopressor support although at times she does become hypertensive, and cardiology is following, 50 mg of losartan at bedtime has been added. Patient remains on IV steroids with Solu-Medrol 60 mg every 6 hours. Remains on Zosyn for empiric antibiotic coverage. This cultures have been negative, with exception of sputum which showed Corynebacterium stratum which is possibly related to colonization. No nausea or vomiting, no diarrhea. He is getting local wound care to his wound on his right lower extremity, and his sacral and left hip area. Reevaluated today on 08/30/2021, patient remains in the ICU as an overflow. Patient was successfully extubated from mechanical ventilation on 08/26/2021, he is now on room air and his O2 saturation is 91%. Patient looks extremely frail, he has poor functional status, and apparently his surgery/debridement was canceled mostly because of the family's concern about the patient tolerating the surgery or not. And wanted to discuss this more with the surgeon. Hence debrid ement was not performed. Patient is now on overflow, waiting for a bed on the medical surgical floor. Remains on bronchodilators remains on antibiotics, IV fluid, down to 75 mL per hour. I believe the patient should be considered for possibly hospice as the patient seems to be a failure to thrive. Patient is not eating much, and to my understanding family declined a PEG tube placement WBC count today is 16.7 hemoglobin is 6.4. May consider transfusing the patient a unit of packed RBCs hemoglobin has been holding around 7 over the last 1 week. Chest x-ray last week was basically unremarkable. And he had a small tiny left pleural effusion Reevaluated today on 08/31/2021, remains in the ICU, patient is an overflow, yesterday I had a long discussion with his regarding considering hospice on this patient, is undecided yet. And she does not want to go for any surgical debridement of his wounds. Today I'm recommending that we could potentially discharge patient to a halfway and considering the patient is a failure to thrive, patient will likely end up readmitted unless he is made comfort care or hospice. Clinically the patient is presently stable, but it would not be surprising to me if he continues to have these episodes of hypoxic and hypercapnic respiratory failure. WBC is 7.31 hemoglobin is 13.7. Electrolytes are normal, renal profile is normal Objective - Vital Signs Vital signs: Vital Signs Temp 98.3 F 08/31/21 12:00 Pulse 77 08/31/21 12:00 Resp 20 08/31/21 12:00 BP 144/53 08/31/21 12:00 Pulse Ox 96 08/31/21 12:00 FiO2 35 08/30/21 07:11 Intake & Output 08/30/21 08/31/21 08/31/21 18:59 06:59 18:59 Intake Total 1420 900 580 Output Total 640 925 200 Balance 780 -25 380 Weight 62.4 kg Intake: IV 1110 900 480 Dextrose 5% in Water 1, 1050 840 450 000 ml @ 75 mls/hr IV . [id number] [facility] Rx#:[id number] Sodium Chloride 0.9% 1, 60 60 30 000 ml @ 20 mls/hr IV . Q24H [facility] Rx#:[id number] Intake, IV Titration 100 Amount Piperacillin-Tazobactam 3 100 .375 gm In Sodium Chloride 0.9% 100 ml @ 25 mls/hr IVPB Q8HR [facility] Rx# :[id number] Blood Product 310 Rc As-1 Unit 310 [id number] Output: Urine 640 925 200 Other: Voiding Method Indwelling Catheter Indwelling Catheter Indwelling Catheter ABP, PAP, CO, CI - Last Documented Arterial Blood Pressure 174/34 - Exam Physical Exam: Revealed 71-year-old white male, frail looking, in no distress, on room air at present. Head: Atraumatic, normocephalic. HEENT:[Neck is supple.] [No neck masses.] [No thyromegaly.] [No JVD.] Dry mucous membranes noted. Chest: Symmetrical chest expansion, diminished breath sounds at the bases no crackles or rhonchi or wheezes. Cardiac Exam: [Normal S1 and S2, no S3 gallop, no murmur.] Abdomen: [Soft, nontender, no megaly, no rebound, no guarding, normal bowel sounds.] Extremities: No clubbing edema or cyanosis. Skin: No rashes. Large-sized eschar over the right lower extremity with wound edges draining some yellow purulent material at the distal edges, and patient also has various wounds and skin tears on his heels, forearms and legs. She also has stage III sacral ulcer, and left hip ulcer. Neurological Exam: Looks frail and weak, generally weak and debilitated. Mental status seems to be intact no gross deficit except weakness Psychiatric: Depressed mood, flat affect, normal mental status - Labs CBC & Chem 7: 08/31/21 08:00 08/31/21 08:00 Labs: Abnormal Lab Results - Last 24 Hours (Table) 08/30/21 08/30/21 08/30/21 Range/Units 12:07 14:00 17:56 WBC 16.7 H (3.8-10.6) k/uL RBC 2.05 L (4.30-5.90) m/uL Hgb 6.4 L* (13.0-17.5) gm/dL Hct 19.9 L* (39.0-53.0) % RDW 22.8 H (11.5-15.5) % Neutrophils # 15.8 H (1.3-7.7) k/uL Lymphocytes # 0.2 L (1.0-4.8) k/uL Potassium (3.5-5.1) mmol/L Carbon Dioxide (22-30) mmol/L BUN (9-20) mg/dL Glucose (74-99) mg/dL POC Glucose (mg/dL) 153 H (75-99) mg/dL Calcium (8.4-10.2) mg/dL AST (17-59) U/L Total Protein (6.3-8.2) g/dL Albumin (3.5-5.0) g/dL Crossmatch See Detail 08/30/21 08/31/21 08/31/21 Range/Units 23:22 05:50 08:00 WBC 15.4 H (3.8-10.6) k/uL RBC 2.77 L (4.30-5.90) m/uL Hgb 8.4 L D (13.0-17.5) gm/dL Hct 25.8 L (39.0-53.0) % RDW 22.5 H (11.5-15.5) % Neutrophils # 14.9 H (1.3-7.7) k/uL Lymphocytes # 0.2 L (1.0-4.8) k/uL Potassium (3.5-5.1) mmol/L Carbon Dioxide (22-30) mmol/L BUN (9-20) mg/dL Glucose (74-99) mg/dL POC Glucose (mg/dL) 167 H 137 H (75-99) mg/dL Calcium (8.4-10.2) mg/dL AST (17-59) U/L Total Protein (6.3-8.2) g/dL Albumin (3.5-5.0) g/dL Crossmatch 08/31/21 08/31/21 Range/Units 08:00 11:35 WBC (3.8-10.6) k/uL RBC (4.30-5.90) m/uL Hgb (13.0-17.5) gm/dL Hct (39.0-53.0) % RDW (11.5-15.5) % Neutrophils # (1.3-7.7) k/uL Lymphocytes # (1.0-4.8) k/uL Potassium 3.2 L (3.5-5.1) mmol/L Carbon Dioxide 32 H (22-30) mmol/L BUN 23 H (9-20) mg/dL Glucose 131 H (74-99) mg/dL POC Glucose (mg/dL) 240 H (75-99) mg/dL Calcium 7.4 L (8.4-10.2) mg/dL AST 13 L (17-59) U/L Total Protein 4.1 L (6.3-8.2) g/dL Albumin 2.1 L (3.5-5.0) g/dL Crossmatch Assessment and Plan Assessment: Impression: Acute on chronic hypoxic and hypercapnic respiratory failure requiring intubation and mechanical ventilation. Patient was extubated on 08/27, and since then his CODE STATUS was changed to DO NOT RESUSCITATE. Atrial flutter with RVR. Remains on amiodarone and Lovenox. 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 Chronic hypoxic and hypercapnic respiratory failure Former smoker. Nonhealing bilateral lower extremities ulcers Chronic cachexia and medical debility. Benign essential hypertension Dyslipidemia Hypothyroidism Multiple nonhealing wounds on the right lower extremity and stage III sacral decubitus ulcer and multiple skin tears. Recommendation: Strongly recommend hospice or comfort care measures on this patient. We'll clear the patient to be discharged to halfway. However prognosis is extremely poor. Continue present medications. Continue bronchodilators. Continue antibiotics. Continue aspiration precautions. Transition Solu-Medrol to prednisone. Consider hospice placement I believe this would be appropriate considering the patient seems to be a failure to thrive, family is undecided Continue DO NOT RESUSCITATE CODE STATUS
[2021-08-31] MEDS: traMADol 50 MG TAB PO PRN (16:06)
[2021-08-31 17:42] LABS: Glucose,Whole Blood 170 mg/dL (70-110)
[2021-08-31] MEDS: LOSARTAN 50 MG TAB PO SCH (20:42)
[2021-08-31 23:55] LABS: Glucose,Whole Blood 101 mg/dL (70-110)
[2021-09-01] MEDS: INSULIN ASPART (NovoLOG) 100 UNIT/ML VIAL SQ SCH ×5 (00:19→23:46)
[2021-09-01] MEDS: PIPERACILLIN-TAZOBACTAM 3.375 GM in SODIUM CHLORIDE 0.9% 100 ML IVPB SCH ×4 (00:21→23:26)
[2021-09-01] MEDS: DEXTROSE 5% IN WATER 1,000 ML IV SCH ×2 (02:21→15:10)
--- NOTE | 2021-09-01 04:40 | P.PN ---
Subjective Progress Note Date: 08/31/21 This is a pleasant 71 years old male with past medical history of COPD, Hyperlipidemia, Hypertension, Osteoarthritis , Metabolic Encaphalopathy, Acute kidney failure with tubular necrosis, Cachexia, Chronic non-pressure ulcer of back, Rhabdomylosis was sent from [facility] with increased weakness and lethargy over the last 2-3days Patient is poor historian but as per staff with . his he has been a [facility] for the last 1-2 months and his been confused. pt looks cachectic and very frail, he is oriented to time ,place and person , but has no denture, his voice is muffled because of that he is been complaining from dyspnea and chest pain which is mild in the middle nonradiating and associated with very little cough. He says his shortness of breath was worse over the last 1 day and a half. Denies any abdominal pain or vomiting or diarrhea but he has low appetite. He denies any choking or swallow problem but he has no denture so we'll check for swallow evaluation Patient looks tachypneic with bilateral chest with some limited air entry but no ricardo wheezing. Patient states that he quit smoking about 10 years ago, used to smoke for more than 10 years. No alcohol or illicit drugs. He has multiple pressure ulcers he has one large pressure ulcers on the right leg laterally with drying scab Or any dressing . Also has multiple pressure ulcers with black eschar on both heels and left foot. The surrounding skin looks intact with no redness or swelling. On admission he was slightly tachypneic on 20, afebrile and heart rate was 84 and blood pressure 141/64, however overnight his blood pressure dropped with systolic 90s to 100, currently his blood pressure 104/68, also became tachycardic with heart rate 04/17/2049. He was saturating 9920% on 2-3 L oxygen via nasal cannula. He is mildly hypothermic at 97.2 His WBC is elevated at 17.7. Hemoglobin is 10.0. Platelet count 258. INR 0.9. BUN is 32 and creatinine 0.9. Troponin is 0.02 and less than 0.01. Glucose was on the low side 57 on admission and currently is 201. Urinalysis showed 1+ protein with no evidence of infection. Patient started on steroids and got a breathing treatment, IV fluids and started on amiodarone drips and Lovenox in the emergency room. D-dimer was elevated, therefore CTA of the chest was done which showed negative for pulmonary embolism, emphysematous changes with small pleural effusion. Also there is focal scattered versus speculated nodule in the right upper lobe we ordered stat CT of the brain and CT of the chest to rule out pulmonary embolism given his hypotension, tachycardia and tachypnea with elevated d-dimer. Also with mild hypoxia suspected. However patient confused per staff when he came in and could not be started on heparin drip before we rule out intracranial bleed before CT of the brain is also ordered with CT of the chest. Both tests came back negative 08/19/2021 Patient today during morning rounds found obtunded and responsive and unarousable with impending respiratory failure and he was transferred to the intensive care unit he got intubated and placed on mechanical ventilation with pulmonary/critical care team following closely and held with and management. His WBCs 11.6, hemoglobin 8.6, creatinine 1.4. chest x-ray sewn bilateral worsening infiltrates especially in the lower zones mood versus worsening infection His continued counseling atrial 60 mg, antibiotic form of Zosyn and amiodarone drip for developing A. fib and RVR. High-dose tenderness on hold 08/20/2021 Patient remains in the ICU intubated and sedated, he still tachypneic with respiratory rate of 28, his PEEP of 8.0 today. His hemoglobin is 7.1, creatinine 1.4. Remains on IV Solu-Medrol and Zosyn. Also is on amiodarone drip, and normal saline at 100 mL per hour. He still has bilateral leg ulceration with dried surface. Ultrasound showing evidence of chronic left DVT, currently he is on Lovenox 50 mg twice daily 08/21/2021 patient remains in the ICU sedated and intubated with pulmonary/critical care team following him closely and help with vent management . He is still on high PEEP relatively at 8 and FiO2 of 35%. He is tachypneic and tachycardic WBC 6.6, hemoglobin 7.5, creatinine improvement 1.2, chest x-ray showing no change. He remains on Zosyn, IV Solu-Medrol and normal saline 08/22/2021 Patient continues to be in the MICU with multiple medical consultations following. Pulmonary intensivists following and patient is maintained on IV steroids, duonebs, and IV antibiotics and will continue. Patient continues on vent with an FI02 of 30% and peep being weaned somewhat from 8 to 6 today. Chest xray is similar to previous day with no real improvement. Patient is afebrile. Patient overall prognosis is extremely poor and guarded and code status to be addressed. Cardiology following as well and have increased the metoprolol and continues on amiodarone. 08/23/2021 Patient continues to be in the ICU on mechanical vent with an FI02 of 30% and p eep is 6. Patient on sedation with holidays being conducted. Not tolerating and no plan for extubation at this time. General surgery consulted for right willis ulcer that has a large scab over it and apparently now some purulent drainage is noted. Possible debridement of the wound and recommend obtaining cultures. Patient is afebrile and sodium is elevated and IV fluids being transitioned to D5 in Water. Recommend repeat labs. 08/24/2021 Patient continues to be closely monitored in the medical ICU and maintained on mechanical vent. Chest x-ray shows persistent patchy opacification the left mid and lower lung zone slightly more prominent today with no progressive right pulmonary consolidation and grossly stable pleural effusions and also incidental finding of NG tube that needs further advancing into the stomach. Patient is continued on enteral nutrition via NG. Patient remains on mechanical vent with an FiO2 of 30% and PEEP is 6. Patient also continues on D5 in water and sodium is 142 today with a potassium of 3.9, creatinine is 0.87. Hemoglobin is 7.4 and WBC is 14.8 which is on an upward trend. Patient is afebrile. Patient continues on breathing inhalational treatments along with IV steroids 60 every 6 and IV Zosyn and is sedated with propofol at this time. Patient is tentatively scheduled for debridement of the right willis today. 08/25/2021 Patient is seen in follow-up in the ICU with multiple medical consultations following. Patient continues on mechanical vent with an FiO2 of 30% and PEEP is 6. Patient is currently off sedation and on Precedex low-dose. Attempting CPAP trials per pulmonary. Contemplating possible tracheostomy family continues to wish for the patient to remain full code. Patient is high risk for remaining on mechanical ventilation given his extensive comorbidities. Per nursing staff patient was not following commands although on exam right are asked patient to nod head yes or no is having any pain and patient nodded had no. Will then look around the room and stare off at the coats. Patient is extremely cachectic and ill-appearing and lethargic. Pulmonary following along with general surgery and plan is for possible debridement of that right willis in the a.m. Chest x-ray shows less prominent infiltration the left lower lung zone and unchanged remainder of the lungs. Patient also continues on breathing inhalational loyda tments along with IV steroids and IV Zosyn. Recommend electrolyte replacement per protocol and were within normal limits today. WBC mildly elevated and trending upward at 15.2, hemoglobin is 7.8. Patient is afebrile. 08/26/2021 Patient continues in the ICU and currently off pressor support. Patient is on low dose precedex and assessing for weaning parameters and currently maintained on cpap assist mode with 5/5 settings. When on vent Fio2 is 30% with a peep of 6. Patient family has made the patient no code and has cancelled the debridement of the right willis wound with general surgery. Possible extubation in the near future and no plans for reintubation. Patient WBC trending down and proc alcitonin is 0.07 and maintained on IV abx with ID following. Sputum likely colonization. Overall prognosis is poor and guarded. Patient is afebrile 08/27/2021 Patient seen on follow-up in the ICU, he is currently intubated on mechanical ventilation, pressure support of 5, PEEP of 6 ABG from today shows pH 7.37, pCO2 50, pO2 170. He is currently on Precedex, but is alert opening his eyes, however today shows his [place]nat[place] [address] receiving IV hydration with D5 water. Currently hemodynamically stable, no fevers. Continues antimicrobial therapy of Zosyn as coronary bacterium growing in the sputum is continued on systemic steroids. Stable creatinine 0.87, blood sugars been running in the 200s he is on sliding scale coverage. 08/28/2021 Patient is extubated patient has diminished breath sounds but not wheezing at this time. 08/29/2021 Patient is seen in follow-up this morning awaiting transfer out of ICU as patient has been downgraded to [facility] and awaiting a bed. Patient was recently extubated and currently maintained on 2 L via nasal cannula. Patient is eating and tolerating an oral intake remains poor but is fair. Family at the bedside reports that they would like [facility] on the [place] when stabilized and discharged and social work following and working on accepting facility. Gen. surgery on standby in the event family changes their mind about debridement of the wounds. WBCs elevated at 15.2 and patient remains on IV antibiotics. Sodium elevated at 144 and will continue D5 in water and follow-up with repeat labs and also recommended chest x-ray in the morning. Patient also continues with DuoNeb treatments along with IV steroids which are being decreased by pulmonary. Will follow-up on labs tomorrow and discuss with pulmonary about discharge planning. Family at the bedside also adamant about changing providers as they are not happy with the current provider. 08/30/2021 Patient is seen today and hemoglobin low today at 6.4and will transfuse a unit of PRBC. Family refusing any further surgical treatment of wounds at this time as they feel patient is too weak. Patient awaiting transfer out of the ICU. Patient accepted at [facility] and will discuss further with about overall poor prognosis and possible hospice care. Social work following. Patient is afebrile and currently maintained on IV abx. IV steroids being titrated down. Patient denies chest pain or worsening shortness of breath. 08/31/2021 Patient is evaluated today and continues in the ICU. Patient is currently on room air and continued on breathing treatments. IV steroids transitioned to oral prednisone and continues on IV zosyn. Patient is afebrile. Hemoglobin improved to 8 after transfusion yesterday and no active bleeding noted. No plans for surgical intervention of the wounds at this time per family. Family undecided about hospice at this time. Overall poor prognosis. Patient denies chest pain or palpitations. Denies worsening shortness of breath. Patient is significantly weak. Review of systems: Constitutional: reports of fatigue, no fever, or chills Cardiovascular: No reports of chest pain or palpitations Respiratory: No reports of worsening shortness of breath or cough GI: No reports of nausea, vomiting, or diarrhea : No reports of dysuria or retention Neurovascular: reports of weakness All medications have been reviewed Active Medications Acetaminophen (Acetaminophen Tab 325 Mg Tab) 650 mg PO Q4H PRN PRN Reason: Pain or Fever > 100.5 Albuterol/Ipratropium (Ipratropium-Albuterol 3 Ml Neb) 3 ml INHALATION RT-Q4H PRN PRN Reason: Shortness Of Breath Or Wheezing Albuterol/Ipratropium (Ipratropium-Albuterol 3 Ml Neb) 3 ml INHALATION RT-QID [facility] Last Admin: 08/31/21 20:27 Dose: 3 ml Amiodarone HCl (Amiodarone 200 Mg Tab) 200 mg PO BID [facility] Last Admin: 08/31/21 20:42 Dose: 200 mg Amlodipine Besylate (Amlodipine 10 Mg Tab) 10 mg PO DAILY [facility] Last Admin: 08/31/21 08:01 Dose: 10 mg Budesonide (Budesonide 1 Mg/2 Ml Nebu) 1 mg INHALATION RT-BID [facility] Last Admin: 08/31/21 20:28 Dose: 1 mg Famotidine (Famotidine 20 Mg Tab) 20 mg PO DAILY [facility] Last Admin: 08/31/21 08:01 Dose: 20 mg Formoterol Fumarate (Formoterol Fumarate 20 Mcg/2 Ml Nebu) 20 mcg INHALATION RT-BID [facility] Last Admin: 08/31/21 20:27 Dose: 20 mcg Hydromorphone HCl (Hydromorphone 1 Mg/Ml 1 Ml Syringe) 1 mg IVP Q2HR PRN PRN Reason: Pain Last Admin: 08/27/21 01:43 Dose: 1 mg Dextrose/Water (Dextrose 5%-Water Iv Soln) 1,000 mls @ 75 mls/hr IV .[id number] [facility] Last Admin: 08/31/21 11:55 Dose: 75 mls/hr Piperacillin Sod/Tazobactam (Sod 3.375 gm/ Sodium Chloride) 100 mls @ 25 mls/hr IVPB Q8HR [facility]; Protocol Last Admin: 09/01/21 00:21 Dose: 25 mls/hr Insulin Aspart (Insulin Aspart (Novolog) 100 Unit/Ml Vial) 0 unit SQ Q6HR [facility]; Protocol Last Admin: 09/01/21 00:19 Dose: Not Given Levothyroxine Sodium (Levothyroxine 50 Mcg Tab) 50 mcg PO DAILY@0500 [facility] Last Admin: 08/31/21 05:52 Dose: 50 mcg Losartan Potassium (Losartan 50 Mg Tab) 50 mg PO HS [facility] Last Admin: 08/31/21 20:42 Dose: 50 mg Metoprolol Tartrate (Metoprolol Tartrate 50 Mg Tab) 100 mg PO BID [facility] Last Admin: 08/31/21 20:41 Dose: 100 mg Miscellaneous Information (Magnesium Replacement Protocol 1 Each Misc) 1 each M ISCELLANE DAILY PRN; Protocol PRN Reason: Per Protocol Miscellaneous Information (Potassium Replacement Protocol 1 Each Misc) 1 each MISCELLANE DAILY PRN; Protocol PRN Reason: Per Protocol Naloxone HCl (Naloxone 0.4 Mg/Ml 1 Ml Vial) 0.2 mg IV Q2M PRN PRN Reason: Opioid Reversal Prednisone (Prednisone 20 Mg Tab) 40 mg PO DAILY [facility] Tramadol HCl (Tramadol 50 Mg Tab) 50 mg PO Q6H PRN PRN Reason: Pain Last Admin: 08/31/21 16:06 Dose: 50 mg Physical Exam: GENERAL: The patient is alert and continues on room air today. Patient is awake. Thin built, ill-appearing, cachectic HEENT: Pupils are round and equally reacting to light. EOMI. No scleral icterus. No conjunctival pallor. Normocephalic, atraumatic. No pharyngeal erythema. No thyromegaly. CARDIOVASCULAR: S1 and S2 present. No murmurs, rubs, or gallops. PULMONARY: Decreased air entry with scattered diffuse rhonchi ABDOMEN: Soft, nontender, nondistended, normoactive bowel sounds. No palpable organomegaly. MUSCULOSKELETAL: No joint swelling or deformity. EXTREMITIES: No cyanosis, clubbing, or pedal edema. Multiple bilateral leg ulcers including both heels and right lateral willis with large scabbing noted over entire surface of the wound. continued purulent drainage noted from the willis. No evidence of overt surrounding cellulitis NEUROLOGICAL: Gross neurological examination did not reveal any focal deficits. Diffusely weak SKIN: No rashes. no petechiae. Assessment: Acute hypoxic respiratory failure requiring intubation and mechanical ventilation secondary to End stage COPD, extubated on 08/28/2021 COPD with exacerbation Multiple pressure ulcers with suspected infection Chronic anemia Hypovolemic hyponatremia Aflutter with RVR, currently rate controlled Moderate calorie malnutrition with a BMI of 21.1 multiple leg wounds focal scar versus speculated nodule in the right upper lobe, will need outp atient PET scan History of hypertension, currently he is hypotensive Hyperlipidemia Dehydration Chronic altered mental status with some elements of acute related to metabolic encephalopathy. Possible dementia History of osteoarthritis History of chronic nonpressure ulcer of the back DVT prophylaxis: Subcutaneous Lovenox GI Prophylaxis: Pepcid No code Plan: Recommend to continue on antibiotics and infectious disease is following. Patient was recently extubated on 08/28/2021 and currently maintained on room air and doing relatively well. Patient is a downgrade and transfer out of the ICU once a bed becomes available Patient accepted at [facility] with possible discharge in 24-48 hours. Family undecided about hospice at this time. Recommend to continue on breathing inhalational treatments. IV steroids transitioned to oral prednisone. Recommend follow-up with am labs and replace electrolytes per protocol. Potassium was 3.2 Pulmonary and cardiology following Overall Prognosis is extremely poor and guarded CODE STATUS no code per The impression and plan of care has been dictated by Lucy Reyes, Nurse Practitioner as directed. Dr. Navi MD I have performed a history and examination and MDM of this patient, discussed the same with the dictator, and agree with the dictator's assessment and plan as written ,documented as a scribe. Based on total visit time, I have performed more than 50% of the visit. Objective - Vital Signs Vital signs: Vital Signs Temp 98.5 F 08/31/21 08:00 Pulse 77 08/31/21 08:04 Resp 25 H 08/31/21 08:00 BP 152/56 08/31/21 08:00 Pulse Ox 99 08/31/21 08:00 FiO2 35 08/30/21 07:11 Intake & Output 08/30/21 08/31/21 08/31/21 18:59 06:59 18:59 Intake Total 1420 900 260 Output Total 640 925 60 Balance 780 -25 200 Weight 62.4 kg Intake: IV 1110 900 160 Dextrose 5% in Water 1, 1050 840 150 000 ml @ 75 mls/hr IV . [id number] [facility] Rx#:[id number] Sodium Chloride 0.9% 1, 60 60 10 000 ml @ 20 mls/hr IV . Q24H [facility] Rx#:[id number] Intake, IV Titration 100 Amount Piperacillin-Tazobactam 3 100 .375 gm In Sodium Chloride 0.9% 100 ml @ 25 mls/hr IVPB Q8HR [facility] Rx# :[id number] Blood Product 310 Rc As-1 Unit 310 [id number] Output: Urine 640 925 60 Other: Voiding Method Indwelling Catheter Indwelling Catheter Indwelling Catheter ABP, PAP, CO, CI - Last Documented Arterial Blood Pressure 174/34 - Labs CBC & Chem 7: 08/31/21 08:00 08/31/21 08:00 Labs: Abnormal Lab Results - Last 24 Hours (Table) 08/30/21 08/30/21 08/30/21 Range/Units 10:59 11:48 12:07 WBC 16.7 H (3.8-10.6) k/uL RBC 2.05 L (4.30-5.90) m/uL Hgb 6.4 L* (13.0-17.5) gm/dL Hct 19.9 L* (39.0-53.0) % RDW 22.8 H (11.5-15.5) % Neutrophils # 15.8 H (1.3-7.7) k/uL Lymphocytes # 0.2 L (1.0-4.8) k/uL Sodium 136 L (137-145) mmol/L Potassium (3.5-5.1) mmol/L Carbon Dioxide (22-30) mmol/L BUN 27 H (9-20) mg/dL Glucose 136 H (74-99) mg/dL POC Glucose (mg/dL) 156 H (75-99) mg/dL Calcium 7.4 L (8.4-10.2) mg/dL AST 13 L (17-59) U/L Alkaline Phosphatase 35 L (38-126) U/L Total Protein 3.8 L (6.3-8.2) g/dL Albumin 2.0 L (3.5-5.0) g/dL Crossmatch 08/30/21 08/30/21 08/30/21 Range/Units 14:00 17:56 23:22 WBC (3.8-10.6) k/uL RBC (4.30-5.90) m/uL Hgb (13.0-17.5) gm/dL Hct (39.0-53.0) % RDW (11.5-15.5) % Neutrophils # (1.3-7.7) k/uL Lymphocytes # (1.0-4.8) k/uL Sodium (137-145) mmol/L Potassium (3.5-5.1) mmol/L Carbon Dioxide (22-30) mmol/L BUN (9-20) mg/dL Glucose (74-99) mg/dL POC Glucose (mg/dL) 153 H 167 H (75-99) mg/dL Calcium (8.4-10.2) mg/dL AST (17-59) U/L Alkaline Phosphatase (38-126) U/L Total Protein (6.3-8.2) g/dL Albumin (3.5-5.0) g/dL Crossmatch See Detail 08/31/21 08/31/21 08/31/21 Range/Units 05:50 08:00 08:00 WBC 15.4 H (3.8-10.6) k/uL RBC 2.77 L (4.30-5.90) m/uL Hgb 8.4 L D (13.0-17.5) gm/dL Hct 25.8 L (39.0-53.0) % RDW 22.5 H (11.5-15.5) % Neutrophils # 14.9 H (1.3-7.7) k/uL Lymphocytes # 0.2 L (1.0-4.8) k/uL Sodium (137-145) mmol/L Potassium 3.2 L (3.5-5.1) mmol/L Carbon Dioxide 32 H (22-30) mmol/L BUN 23 H (9-20) mg/dL Glucose 131 H (74-99) mg/dL POC Glucose (mg/dL) 137 H (75-99) mg/dL Calcium 7.4 L (8.4-10.2) mg/dL AST 13 L (17-59) U/L Alkaline Phosphatase (38-126) U/L Total Protein 4.1 L (6.3-8.2) g/dL Albumin 2.1 L (3.5-5.0) g/dL Crossmatch
[2021-09-01] MEDS: HYDROmorphone 1 MG/ML 1 ML SYRINGE IVP PRN ×2 (04:41→15:00)
[2021-09-01] MEDS: LEVOTHYROXINE 50 MCG TAB PO SCH (04:42)
[2021-09-01 05:18] LABS: Glucose,Whole Blood 91 mg/dL (70-110)
[2021-09-01 07:23] LABS: African American GFR (CKD) >90 (>60 ml/min/1.73 sqM); Anion Gap 2 mmol/L; Blood Urea Nitrogen 18 mg/dL (9-20); Calcium 7.4 mg/dL (8.4-10.2); Carbon Dioxide 27 mmol/L (22-30); Chloride 107 mmol/L (98-107); Glucose 93 mg/dL (74-99); Non-African American GFR(CKD) >90 (>60 ml/min/1.73 sqM); Potassium 3.6 mmol/L (3.5-5.1); Sodium 136 mmol/L (137-145)
--- NOTE | 2021-09-01 07:51 | P.PN ---
Subjective Progress Note Date: 08/30/21 Principal diagnosis: Possible aspiration pneumonia and multiple pressure ulcers She is a 71-year-old male with a past medical history significant for end-stage COPD admitted to the hospital with weakness and some shortness of breath patient did have worsening of his respiratory status requiring intubation and admission to the ICU, patient also have multiple pressure ulcers. Patient subsequently has been successfully extubated on 08/27/2021 On today's evaluation 08/30/2021, the patient is afebrile, patient is currently breathing comfortably on room air, patient is lethargic and not a good historian, no vomiting or diarrhea or any changes reported by the nursing staff Objective - Vital Signs Vital signs: Vital Signs Temp 98.2 F 08/30/21 08:00 Pulse 73 08/30/21 10:43 Resp 28 H 08/30/21 10:43 BP 146/53 08/30/21 08:00 Pulse Ox 91 L 08/30/21 08:00 FiO2 35 08/30/21 07:11 Intake & Output 08/29/21 08/30/21 08/30/21 18:59 06:59 18:59 Intake Total 1540 1320 100 Output Total 500 560 125 Balance 1040 760 -25 Weight 59.9 kg 60.6 kg Intake: IV 1440 1320 100 Dextrose 5% in Water 1, 1200 1100 100 000 ml @ 100 mls/hr IV . Q10H [facility] Rx#:[id number] Sodium Chloride 0.9% 1, 240 220 000 ml @ 20 mls/hr IV . Q24H [facility] Rx#:[id number] Intake, IV Titration 100 Amount Piperacillin-Tazobactam 3 100 .375 gm In Sodium Chloride 0.9% 100 ml @ 25 mls/hr IVPB Q8HR [facility] Rx# :[id number] Output: Urine 500 560 125 Other: Voiding Method Indwelling Catheter Indwelling Catheter Indwelling Catheter # Bowel Movements 1 ABP, PAP, CO, CI - Last Documented Arterial Blood Pressure 174/34 - Exam GENERAL DESCRIPTION: An elderly male lying in bed in no distress RESPIRATORY SYSTEM: Unlabored breathing , decreased breath sounds at bases HEART: S1 S2 regular rate and rhythm , ABDOMEN: Soft , no tenderness EXTREMITIES: No edema feet - Labs CBC & Chem 7: 08/31/21 08:00 09/01/21 06:56 Labs: Abnormal Lab Results - Last 24 Hours (Table) 08/29/21 08/30/21 08/30/21 Range/Units 17:33 05:19 10:59 Sodium 136 L (137-145) mmol/L BUN 27 H (9-20) mg/dL Glucose 136 H (74-99) mg/dL POC Glucose (mg/dL) 179 H 153 H (75-99) mg/dL Calcium 7.4 L (8.4-10.2) mg/dL AST 13 L (17-59) U/L Alkaline Phosphatase 35 L (38-126) U/L Total Protein 3.8 L (6.3-8.2) g/dL Albumin 2.0 L (3.5-5.0) g/dL 08/30/21 Range/Units 11:48 Sodium (137-145) mmol/L BUN (9-20) mg/dL Glucose (74-99) mg/dL POC Glucose (mg/dL) 156 H (75-99) mg/dL Calcium (8.4-10.2) mg/dL AST (17-59) U/L Alkaline Phosphatase (38-126) U/L Total Protein (6.3-8.2) g/dL Albumin (3.5-5.0) g/dL Assessment and Plan (1) Pneumonia Current Visit: Yes Status: Acute Code(s): J18.9 - PNEUMONIA, UNSPECIFIED ORGANISM SNOMED Code(s): 904100323 Plan: 1patient presented to hospital with increasing shortness of breath could be related to her underlying cardiac etiology, patient subsequently did have worsening of his respiratory status requiring intubation and concern for possible aspiration. 2sputum culture grew Corynebacterium more likely colonization 3patient to continue local wound care with Medihoney to the left thigh wound with a slough rest of the wound with a dry necrotic area to keep them dry and of the pressure. 4-patient has some clinical improvement and will continue with the Zosyn white count is mildly elevated and will monitor closely Time with Patient: Less than 30
--- NOTE | 2021-09-01 07:53 | P.PN ---
Subjective Progress Note Date: 08/31/21 Principal diagnosis: Possible aspiration pneumonia and multiple pressure ulcers She is a 71-year-old male with a past medical history significant for end-stage COPD admitted to the hospital with weakness and some shortness of breath patient did have worsening of his respiratory status requiring intubation and admission to the ICU, patient also have multiple pressure ulcers. Patient subsequently has been successfully extubated on 08/27/2021 On today's evaluation 08/31/2021, the patient remains to be afebrile, patient is breathing comfortably on room air, patient is not a good historian, no vomiting or diarrhea or any changes reported by the nursing staff Objective - Vital Signs Vital signs: Vital Signs Temp 98.3 F 08/31/21 12:00 Pulse 77 08/31/21 12:00 Resp 20 08/31/21 12:00 BP 144/53 08/31/21 12:00 Pulse Ox 96 08/31/21 12:00 FiO2 35 08/30/21 07:11 Intake & Output 08/30/21 08/31/21 08/31/21 18:59 06:59 18:59 Intake Total 1420 900 580 Output Total 640 925 200 Balance 780 -25 380 Weight 62.4 kg Intake: IV 1110 900 480 Dextrose 5% in Water 1, 1050 840 450 000 ml @ 75 mls/hr IV . [id number] [facility] Rx#:[id number] Sodium Chloride 0.9% 1, 60 60 30 000 ml @ 20 mls/hr IV . Q24H [facility] Rx#:[id number] Intake, IV Titration 100 Amount Piperacillin-Tazobactam 3 100 .375 gm In Sodium Chloride 0.9% 100 ml @ 25 mls/hr IVPB Q8HR [facility] Rx# :[id number] Blood Product 310 Rc As-1 Unit 310 [id number] Output: Urine 640 925 200 Other: Voiding Method Indwelling Catheter Indwelling Catheter Indwelling Catheter ABP, PAP, CO, CI - Last Documented Arterial Blood Pressure 174/34 - Exam GENERAL DESCRIPTION: An elderly male lying in bed in no distress RESPIRATORY SYSTEM: Unlabored breathing , decreased breath sounds at bases HEART: S1 S2 regular rate and rhythm , ABDOMEN: Soft , no tenderness EXTREMITIES: No edema feet - Labs CBC & Chem 7: 08/31/21 08:00 09/01/21 06:56 Labs: Abnormal Lab Results - Last 24 Hours (Table) 08/30/21 08/30/21 08/30/21 Range/Units 14:00 17:56 23:22 WBC (3.8-10.6) k/uL RBC (4.30-5.90) m/uL Hgb (13.0-17.5) gm/dL Hct (39.0-53.0) % RDW (11.5-15.5) % Neutrophils # (1.3-7.7) k/uL Lymphocytes # (1.0-4.8) k/uL Potassium (3.5-5.1) mmol/L Carbon Dioxide (22-30) mmol/L BUN (9-20) mg/dL Glucose (74-99) mg/dL POC Glucose (mg/dL) 153 H 167 H (75-99) mg/dL Calcium (8.4-10.2) mg/dL AST (17-59) U/L Total Protein (6.3-8.2) g/dL Albumin (3.5-5.0) g/dL Crossmatch See Detail 08/31/21 08/31/21 08/31/21 Range/Units 05:50 08:00 08:00 WBC 15.4 H (3.8-10.6) k/uL RBC 2.77 L (4.30-5.90) m/uL Hgb 8.4 L D (13.0-17.5) gm/dL Hct 25.8 L (39.0-53.0) % RDW 22.5 H (11.5-15.5) % Neutrophils # 14.9 H (1.3-7.7) k/uL Lymphocytes # 0.2 L (1.0-4.8) k/uL Potassium 3.2 L (3.5-5.1) mmol/L Carbon Dioxide 32 H (22-30) mmol/L BUN 23 H (9-20) mg/dL Glucose 131 H (74-99) mg/dL POC Glucose (mg/dL) 137 H (75-99) mg/dL Calcium 7.4 L (8.4-10.2) mg/dL AST 13 L (17-59) U/L Total Protein 4.1 L (6.3-8.2) g/dL Albumin 2.1 L (3.5-5.0) g/dL Crossmatch 08/31/21 Range/Units 11:35 WBC (3.8-10.6) k/uL RBC (4.30-5.90) m/uL Hgb (13.0-17.5) gm/dL Hct (39.0-53.0) % RDW (11.5-15.5) % Neutrophils # (1.3-7.7) k/uL Lymphocytes # (1.0-4.8) k/uL Potassium (3.5-5.1) mmol/L Carbon Dioxide (22-30) mmol/L BUN (9-20) mg/dL Glucose (74-99) mg/dL POC Glucose (mg/dL) 240 H (75-99) mg/dL Calcium (8.4-10.2) mg/dL AST (17-59) U/L Total Protein (6.3-8.2) g/dL Albumin (3.5-5.0) g/dL Crossmatch Assessment and Plan (1) Pneumonia Current Visit: Yes Status: Acute Code(s): J18.9 - PNEUMONIA, UNSPECIFIED ORGANISM SNOMED Code(s): 057331524 Plan: 1patient presented to hospital with increasing shortness of breath could be related to her underlying cardiac etiology, patient subsequently did have worsening of his respiratory status requiring intubation and concern for possible aspiration. 2sputum culture grew Corynebacterium more likely colonization 3patient to continue local wound care with Medihoney to the left thigh wound with a slough rest of the wound with a dry necrotic area to keep them dry and of the pressure. 4-patient to continue with the Zosyn white count is mildly elevated possibly related to Solu-Medrol which has been switched to prednisone and will monitor his white count closely Time with Patient: Less than 30
[2021-09-01] MEDS: predniSONE 20 MG TAB PO SCH (08:09)
[2021-09-01] MEDS: AMIODARONE 200 MG TAB PO SCH ×2 (08:09→22:26)
[2021-09-01] MEDS: METOPROLOL TARTRATE 50 MG TAB PO SCH ×2 (08:09→22:26)
[2021-09-01] MEDS: FAMOTIDINE 20 MG TAB PO SCH (08:09)
[2021-09-01] MEDS: amLODIPine 10 MG TAB PO SCH (08:09)
[2021-09-01] MEDS: BUDESONIDE 1 MG/2 ML NEBU INHALATION SCH ×2 (08:20→19:48)
[2021-09-01] MEDS: FORMOTEROL FUMARATE 20 MCG/2 ML NEBU INHALATION SCH ×2 (08:20→19:48)
[2021-09-01] MEDS: IPRATROPIUM-ALBUTEROL 3 ML NEB INHALATION SCH ×5 (08:20→19:48)
--- NOTE | 2021-09-01 11:30 | PN ---
PROGRESS NOTE 71-year-old gentleman who is admitted to hospital with COPD exacerbation. He has nonhealing ulcers over the right leg. This morning from cardiac standpoint, he remains in sinus rhythm. He is on Cozaar 50 mg daily, Lopressor 100 b.i.d., antibiotics, amiodarone 200 b.i.d. and Norvasc 10 daily along with nebulizers. On exam, heart rate is 68 beats a minute, blood pressure is 113/57, respiratory rate 18. Chest exam reveals diminished air entry at the bases. Heart exam reveals first and second heart sounds. No gallop. Examination of extremities reveals bilateral 1+ edema. Nonhealing ulcer over the right leg. Labs show that hemoglobin is 8.4, platelet count is 175. Potassium is 3.6, creatinine is 0.76. ASSESSMENT: Paroxysmal atrial fibrillation. PLAN: I will continue the patient on current medications. It was deemed that the patient is not a candidate for anticoagulation . MMODL / IJN: [id number] /
[2021-09-01 12:16] LABS: Glucose,Whole Blood 93 mg/dL (70-110)
[2021-09-01 12:28] VITALS: BMI 21.7
--- NOTE | 2021-09-01 13:11 | P.PN ---
Subjective Progress Note Date: 09/01/21 CHIEF COMPLAINT: Right leg wound HISTORY OF PRESENT ILLNESS: Patient remains in the ICU as an overflow. Patient was extubated from mechanical limitation on 08/26/2021. He remains on room air. Patient is weak. No debridement of right leg wound due to family's concern of patient not tolerating surgery. Afebrile. Na 136 k 3.6 cr 0.76 PHYSICAL EXAM: VITAL SIGNS: Reviewed. ABDOMEN: Soft. Nondistended. Extremities right lower leg pressure ulceration with large scab and drainage. edges of scab are becoming softer ASSESSMENT: 1. Right lower leg pressure ulcer PLAN: -Continue to monitor. No surgical intervention planned per family's request. -Continue supportive care Physician Roll Up Helper note has been reviewed by physician. Signing provider agrees with the documented findings, assessment, and plan of care. Objective - Vital Signs Vital signs: Vital Signs Temp 98.3 F 09/01/21 11:22 Pulse 74 09/01/21 11:22 Resp 18 09/01/21 11:22 BP 156/70 09/01/21 11:22 Pulse Ox 95 09/01/21 11:22 FiO2 35 08/30/21 07:11 Intake & Output 08/31/21 09/01/21 09/01/21 18:59 06:59 18:59 Intake Total 1060 900 150 Output Total 580 550 200 Balance 480 350 -50 Weight 61.2 kg 61.2 kg Intake: IV 960 900 150 Dextrose 5% in Water 1, 900 900 150 000 ml @ 75 mls/hr IV . [id number] [facility] Rx#:[id number] Sodium Chloride 0.9% 1, 60 000 ml @ 20 mls/hr IV . Q24H [facility] Rx#:[id number] Intake, IV Titration 100 Amount Piperacillin-Tazobactam 3 100 .375 gm In Sodium Chloride 0.9% 100 ml @ 25 mls/hr IVPB Q8HR [facility] Rx# :[id number] Output: Urine 580 550 200 Other: Voiding Method Indwelling Catheter Indwelling Catheter Indwelling Catheter # Bowel Movements 1 ABP, PAP, CO, CI - Last Documented Arterial Blood Pressure 174/34 - Labs CBC & Chem 7: 08/31/21 08:00 09/01/21 06:56 Labs: Abnormal Lab Results - Last 24 Hours (Table) 08/31/21 09/01/21 Range/Units 17:40 06:56 Sodium 136 L (137-145) mmol/L POC Glucose (mg/dL) 170 H (70-110) mg/dL Calcium 7.4 L (8.4-10.2) mg/dL
--- NOTE | 2021-09-01 14:38 | P.PN ---
Subjective Progress Note Date: 09/01/21 Principal diagnosis: Shortness of breath 71-year-old male patient with known history of severe end-stage COPD, with a baseline FEV1 of 0.67 L or 25% predicted as November 2020 PFT, on home oxygen patient usually wears 3 L of oxygen on a regular basis, ex-smoker, chronic dyspnea, hypertension, hyperlipidemia, osteoarthritis, cachexia, chronic nonhealing ulcers involving bilateral feet. Patient was recently required hospitalization in the last several weeks at the [facility] when he required mechanical ventilator support. Patient follows with Dr. Hall in the pulmonary clinic. On 08/17/2021 patient presents to the emergency department from a long term because of weakness and fatigue. Patient was also complaining of some chest discomfort in the morning, and shortness of breath. Denied any recent fever or chills. No worsening cough wheezing or phlegm production. No hemoptysis. Chest x-ray showed small bilateral pleural effusions with minimal subsegmental atelectasis at the left base. EKG showed sinus rhythm, with minimal ST depression in inferior leads, and T-wave inversion in aVL and LVH. Laboratory evaluation showed elevated white count of 17.7, hemoglobin of 10.0, platelet count of 285, d-dimer was mildly elevated to 0.97, sodium is 144, potassium is 5.1, BUN of 32, creatinine 0.69, 2 sets of troponins were negative at 0.020, less than 0.012, pro-calcitonin level was elevated to 0.50, TSH was within normal limits, LFTs were within normal limits, plasma lactic acid was 1.3 urinalysis without sign of infection. CT angiogram of the chest showed no evidence of acute pulmonary embolism, and moderate emphysematous change with small size right greater than left pleural effusions. There was focal scarring versus spiculated nodule in the posterior right upper lobe which is new from 2014 study with recommendation of follow-up PET scan. Patient is currently on 3 L of oxygen pulse ox is 99%, he is very short of breath at rest, but appears to be in no acute distress, he is able to answer some simple questions, but he does have conversational dyspnea as well. Afebrile, he is tachycardic, cardiology has been consulted for SVT. Patient is on amiodarone infusion at 1 mg/m for rate control, he is on empiric antibiotics and breathing treatments and IV steroids. The patient is seen today 08/19/2021 in follow-up on the selective care unit. Upon arrival the patient was quite obtunded and unarousable and breathing shallow. He was immediately transferred to the intensive care unit requiring emergent intubation and placed on the mechanical ventilator. Initial settings included assist control mode with a rate of 20, tidal volume 350, FiO2 100% and a PEEP of 5. Left subclavian triple-lumen catheter place. Right radial arterial line placed. Arterial blood gases revealed a PaO2 of 124, pCO2 of 65 and a pH of 7.19. His respiratory rate was increased to 28. PEEP increased to 8. Plans to titrate down the FiO2. White count 11.6. Hemoglobin 8.6. Platelets 256. Sodium 143. Potassium 4.9. Chloride 113. BUN 44. Creatinine 1.42. Glucose 134. AST 42. ALT 195. Albumin 2.8. He is currently sedated on propofol at 50 mcg/kg/m. To be given 1-2 L of fluid resuscitation. Chest x-ray reveals no evidence of pneumothorax, satisfactory positioning of the endotracheal and orogastric tubes. There is worsening left lung edema/infiltrates. Improved aeration of the right lung base. Augmentin discontinued. Initiated on Zosyn. Pro-calcitonin pending. Culture revealing no growth to date. He was initially in atrial fibrillation requiring amiodarone. He is continued on bronchodilators, IV Solu-Medrol. He remains in a positive balance. The patient is seen today 08/20/2021 in follow-up in the intensive care unit. He remains intubated on mechanical ventilator. Still notices control mode with a rate of 28, attentive on 350, FiO2 40% and a PEEP of 8. Morning blood gases revealed a PaO2 of 113, pCO2 42, pH 7.32. He remains sedated on propofol at 75 mcg/kg/m. He has normal saline running at 100 ML's per hour. He is being nourished with vital HPI at 20 ML's per hour with a goal of 36. He is on antibiotics in the form of Zosyn. He is continued on DuoNeb inhalations, Pu lmicort and Perforomist inhalations, IV Solu-Medrol. Chest x-ray continues to show mildly improved aeration in the left lung with persistent multifocal airspace opacities. Small bilateral effusions left greater than right. Evidence of COPD. Endotracheal, nasogastric tubes and left central venous catheter all in appropriate position. Blood culture reveals no growth to date. Sputum cultures pending. White count 8.3. Hemoglobin 7.1. Platelets 188. Sodium 143. Potassium 4.8. Chloride 116. Bicarb 21. BUN 44. Creatinine 1.44. Glucose 156. Currently in a +2.5 L. Currently in sinus rhythm. He remains on oral amiodarone. Lovenox for DVT prophylaxis. The patient is seen today 08/21/2021 in follow-up in the intensive care unit. He remains intubated on mechanical ventilator. Currently an assist-control mode. Rate of 28, tidal volume 350, FiO2 35% and a PEEP of 8. Morning blood gases revealed a PaO2 of 108, pCO2 42 and a pH of 7.31. He remains sedated on propofol at 75 mcg/kg/m. He has normal saline at 100 ML's per hour. He is being nourished with vital HPI at 36 ML's per hour. Chest x-ray can continues to show some improvement in the left lower lung. He remains on Zosyn. Endotracheal tube to be advanced 2 cm. Pro-calcitonin was 0.41. Blood culture reveals no growth. Sputum culture pending. White count 6.6. Hemoglobin 7.5. Platelets 163. Sodium 142. Potassium 4.2. Bicarb 21. BUN 39. Creatinine 1.26. Glucose 202. He is currently in a +3.2 L balance. He remains on DuoNeb inhalations, Pulmicort and Perforomist inhalations, IV Solu-Medrol. Antibiotics in the form of Zosyn. Lovenox for DVT prophylaxis. He remains hemodynamically stable. 08/22/2021, the patient is being seen for a follow-up. As mentioned, a 71-year-old male patient with advanced COPD with an FEV1 of 0.67 L benefit 1 of around 25% of predicted, with known history of chronic hypoxic respiratory failure maintained on oxygen at 3 L and currently the patient intubated on a mechanical ventilator. He is on propofol running at [place] micrograms per kilogram per minute. The patient is an assist-control mode of mechanical ventilation at the rate of 28 with a tidal volume of 350 and FiO2 of 30% with a PEEP of 8. Peak airway pressure is around 26-30. The patient has an auto PEEP which is in the order of 3 cm of water. The blood gases from today shows a pH of 7.30 with a pCO2 of 40 and pO2 of 116. His serum bicarbonate is at 20, and the patient could have been potentially a CO2 retainer with chronic metabolic alkalosis and this can be relative acidosis. The rest of the blood work shows a sodium level of 146, potassium of 3.7, BUN of 38 with a creatinine of 0.9. The white cell count is at 9 with a hemoglobin of 7.2. The patient is currently covered empirically with IV Zosyn. The chest x-ray from today is showing adequate positioning of the ET tube. The patient has bilateral lower lobe small pleural effusions. No major interval change compared to yesterday. He remains on DuoNeb nebulized treatments around the clock. Remains on IV Solu-Medrol and remains on IV Zosyn. The pro-calcitonin level was at 0.631 at a time of admission. Lactic acid level was nonelevated the time of admission. The patient has a flutter rhythm and currently is on oral amiodarone. He is also on anticoagulation with Lovenox 50 mg subcu every 12 hours under the recommend ations of cardiology. Note that the patient also has chronic once and the wounds are multiple involving the right forearm where he is a skin tear, right calf ulcer, right willis, left thigh, left foot and left elbow and he also has a sacral wound stage II. None of these wounds are draining. The one on his right willis is covered with a rather thick scab which is extending in the area under his knee to the mid the patient is also on goal enteral feeding and the patient is currently on vital high protein right running at the rate of 36. 08/23 2021, the patient remains intubated on a mechanical ventilator. This morning, he remains on propofol running at 60 mcg/kg per minute. The patient is quite sensitive a mechanical ventilator. He remains on assist control mode at the rate of 40 with a tidal volume of 325 with an FiO2 of 30% and a PEEP of 6. Peak airway pressures around 25. His I:E ratio is 1-6. No significant rest or secretions. Blood gases showed a pH of 7.32 with a pCO2 of 43 and pO2 of 92. The patient remains on assist control mode of mechanical ventilation, volume cycle. The chest x-ray is not showing any acute abnormalities. ET tube is in a good location. There is hyperinflation consistent with COPD. There is also increased haziness in lung bases bilaterally compared to yesterday chest x-ray, possibly some effusion/pulmonary vessel congestion.. Note that the patient remains on IV Zosyn. His pro-calcitonin level at the time of admission was 0.631. His lactic acid level was nonelevated. He remains in atrial flutter rhythm with a controlled rate. No major changes in his condition since yesterday. He is receiving enteral feeding for nutritional support and currently he is on [employer] posterior running good today shows 36. The patient is afebrile. The patient is hemodynamically stable. The patient is on no pressors for now. In terms of his cardiac status, the patient remains on oral amiodarone and Lopressor and the patient is also on Lovenox 50 mg subcu every 12 hours per cardiology as an anticoagulant. He does have multiple wounds throughout his lower extremity and upper extremity and the sacrum. He is extensively debilitated. His blood work from today showing a sodium level of 147, potassium of 4 Cardizem 121 with a BUN of 40 and a creatinine of 0.9. Blood sugar is 153. The white cell count is currently at 12.6 with a hemoglobin of 7.3 and a platelet count of 160s . Upon further inspection, the right leg wounds which has a large eschar is draining some purulent material and this needs to be further debrided. 08/24/2021, the patient remains on a mechanical ventilator. He received a sedation holiday yesterday. He went on for a total of 2.5 half hours. He open up his eyes and he was not following any commands and at that point, he was having some autonomic reactions and he was started back on sedation. This morning, he was on propofol at 50 mcg/kg per minute. He is in the process of getting another sedation holiday. He is off sedation for around half an hour. His opening up his eyes. His grimacing to painful stimulation. He is not following any commands. Does not move and is quite debilitated and extremely weak at this point in time. The patient remains on a mechanical ventilator on assist control mode at the rate of 14 with a tidal volume of 375 and FiO2 of 30% with a PEEP of 6. Peak airway pressures 27. Blood gases from today show a pH of 7.32 with a pCO2 of 44 and pO2 of 108. Chest x-ray from today is showing no significant interval change. ET tube remains in a good location. The patient has no evidence of any pneumothorax. There is hyperinflation regarding his underlying COPD. There is increased haziness in the lung bases bilaterally and a component of mild pulmonary vascular congestion. The tip of the orotracheal tube is around 3.5 cm above the josette. There is persistent patchy opacity in the left mid and lower lung hawk slightly more prominent on today's evaluation. Meanwhile, the patient's has a white cell count of 14.8. Hemoglobin is at 7.4. He had is a 41 with a creatinine of 0.8 and a sodium level of 142. He is afebrile for now. His pro-calcitonin level from 08/19/2021 was 0.41. His fluid balance over the past 24 hours is +2.2 L and the patient is currently on D5W at the rate of 100 mL an hour and the patient is receiving enteral feeding for nutritional support and he is receiving vital high protein at the rate of 29 mL an hour. Note that the patient's that have a component of hyponatremia yesterday and for that reason he was started on free water supplements. Gen. surgery was also consulted on this patient regarding his wounds and the large eschar over the right lower extremity and this needs to be debrided a later stage. My concern is that the patient is extremely debilitated and he may not be a good candidate for weaning and he may not reach a successful weaning off the mechanical ventilator. I have were discussed this with his wif e. 08/25/2021, the patient is currently off propofol and the patient is currently on Precedex and this is being gradually weaned off as the patient is quite comfortable on a mechanical ventilator while being on Precedex. Precedex is currently running at a dose of 0.3 mcg/kg per minute and the patient seems to be sections a mechanical ventilator. On today's evaluation, he opens up his eyes. He does not follow any commands. He is not checking at this point in time. Note that he is on a low-dose of Precedex. He is on a mechanical ventilator on assist control mode at the rate of 14 with a tidal volume of 375 and FiO2 of 40% with a PEEP of 6. The blood gas showed pH of 7.32 with a pCO2 of 48 and pO2 of 79. The peak airway pressures nonelevated and the patient has equal and symmetrical breath sounds. The repeat chest x-ray was done today that showed improvement in the left sided perihilar pulmonary infiltrates. His improvement in the volume status. The infiltrate on the left his left prominent specially in the left lower lobe. ET tube remains in a good location. No significant orotracheal secretions. The patient remains on IV Zosyn for now. The cultures are essentially negative other than josette bacterium in the sputum which is probably a colonizer. He is afebrile. He is hemodynamically stable. Affect is slightly hypertensive. He is receiving enteral feeding for nutritional support without any major difficulties and he is on vital high protein at the rate of 44 mL an hour. In terms of his fluid balance, I put him on D5 water to yesterday regarding his hypernatremia. He was also started on free water supplements. The sodium level today is at 142 and he is currently on 0.9 at 20 mL an hour and the free water has been discontinued and the patient was given a dose of Lasix yesterday. Overall fluid balance since yesterday has been in the order of +2.2 L. He is afebrile. Hemodynamically stable. Pro-calcitonin level was 0.41. Of concern is his profound weakness and the patient is still not following commands despite having some degree of alertness and he opens up his eyes and looks around without any purpose. He does grimace to painful stimulation and withdraws to painful stimulation in all 4 extremities. The large wound over the right lower extremity is covered with a dry eschar. The edges of the wounds are draining purulent material. he has multiple unstageable wounds on his buttocks on multiple areas. 08/26/2021, the patient is on Precedex which is running at a dose of 0.5 mcg/kg per minute. He is more arousable compared to yesterday. His tract in and he did may be use his hands to grab upon demand. His eyes are open. He follows no commands at this point in time. He is breathing comfortably on a mechanical ventilator. He is hemodynamically stable. Is an assist-control mode at the rate of 14 with a tidal volume of 375 mL with an FiO2 of 30% and a PEEP of 6. The blood gases from today showed a pH of 7.39 with a pCO2 of 43 and pO2 of 80. The patient had no chest x-ray done today. His blood work shows a stable white cell count of 15.8 with a hemoglobin of 7.5 and a platelet count of 211. Sodium is at 145. Bicarb is a 28 with a BUN of 52 and a creatinine of 0.9. The overall fluid balance over the past 24 hours has been had it hours a negative fluid balance. The patient is afebrile. The patient is hemodynamically stable. The patient is on no pressors. The patient is receiving enteral feeding for nutritional support and the patient is currently on vital high protein at the rate of 44 mL an hour. As mentioned, the patient has multiple wounds largest being his right lower extremity and another unstageable wounds in his buttocks. We have not debrided wounds yet and the procedure was canceled upon the family's request. Furthermore, the family opted to change his CODE STATUS to DO NOT RESUSCITATE DO NOT INTUBATE. No other significant events overnight. His cardiac rhythm is sinus. He remains on bronchodilators. He remains on steroids. He remains on an empiric antibiotic coverage with IV Zosyn. 08/27/2021, the patient is being seen for a follow-up. He is awake. He is following some simple commands. He is not thing with his had an upon questioning, he stated that he wanted the tube out. He is on Precedex running at 0.5 mcg/kg/h. He is nicely sedated and is calm and comfortable. He has remained on a pressure support mode of mechanical ventilation throughout the day yesterday. He is currently on a pressure support of 5 and a PEEP of 6. The chest x-ray from today showing a hyperinflation and left basilar pleural effusion which is essentially small. ET tube remains in a good location. No other new acute abnormalities have been noted. The patient does not have any major respiratory secretions. Blood. This from today showed a pH of 7.37 with a pCO2 of 50 and pO2 of 170. Hemodynamically stable. He is on no pressors. His white cell count of 15 with a hemoglobin of 7.2. Same time, the patient has developed some mild hyperchloremic hypernatremia and this is despite his third spacing. His sodium level is up to 149. Cortisone and 16. BUN is 59 with a creatinine of 0.8. He is afebrile. He has multiple wounds as stated. He has become more edematous in all 4 extremities. He remains on bronchodilators, steroids, and is also on IV Zosyn. Overall fluid balance is -1.1 L over the past 24 hours. Examination of his wound revealed that the patient is developing a hematoma-like blisters in the medial aspect of his right thigh. The dry scabbed wounds over the lateral aspect of the right lower extremity is unchanged although it has become more wet as the patient is becoming edematous in all 4 extremities. 08/28 2021, the patient is extubated. With extubation process yesterday and the patient extubated successfully to a BiPAP. Note that he was also on Precedex for agitation and the Precedex is being gradually weaned off and currently is down to 0.3 mcg/kg/h. He is unresponsive. Extremely weak, barely able to move his fingers and toes. He is talking. He is breathing comfortably and is currently on oxygen at 2 L per minute nasal cannula. His mouth is dry and is also requesting for some milk. Family were at the bedside yesterday. The plan is a DNR/DNI CODE STATUS with no intentions 40 intubation. Llanos catheter is in place. Continues to have intermittent edema in all 4 extremities. The patient seems 40 mg of Lasix yesterday and the patient has been producing adequate amount of urine output. Nevertheless, the sodium level is up to 149 and the patient's current IV fluids are in the form of D5W at the rate of 50 mL an hour. The sodium level has not changed considerably since yesterday. The white cell count at 13.5. Hemoglobin is at 7.1. Potassium level is at 3.6. BUN is at 48 with a creatinine of 0.8. The wounds are essentially unchanged. He is afebrile. He is on empiric antibiotics and he is currently on IV Zosyn. Remains on bronchodilators. He remains on steroids. Extremely debilitated. Extubated this point in time. Communicating. At times angry. On 08/29/2021 patient seen in follow-up in the intensive care unit, she was successfully weaned and extubated from mechanical ventilator on 08/26/2021 to BiPAP support. BiPAP support has been gradually weaned off, and patient is currently on 2 L of oxygen a pulse ox of 98%, breathing comfortably, BiPAP support has been off since 10:00 yesterday on 08/28/2021, patient is breathing comfortably, no worsening dyspnea, he is quite weak and debilitated, but appears to be in no acute distress. His last chest x-ray from 08/27/2021 showed small left pleural effusion, and mild interval improvement in the degree of pleural fluid. Today's labs have been reviewed, his white blood cell count is 15.2, hemoglobin is 7.0, sodium is 144, potassium is 4.1, chloride is 112, B1 is 30, creatinine 0.75. Vision has received a dose of IV Lasix yesterday 40 mg 1. To produce 2.6 L in the urine output however he still remains in positive net fluid balance. He is currently receiving D5W at a rate of 100 ML per hour, his oral intake has been poor despite encouragement and assistance with his meals. No fever or chills overnight. Patient is not requiring any vasopressor support although at times she does become hypertensive, and cardiology is following, 50 mg of losartan at bedtime has been added. Patient remains on IV steroids with Solu-Medrol 60 mg every 6 hours. Remains on Zosyn for empiric antibiotic coverage. This cultures have been negative, with exception of sputum which showed Corynebacterium stratum which is possibly related to colonization. No nausea or vomiting, no diarrhea. He is getting local wound care to his wound on his right lower extremity, and his sacral and left hip area. On 09/01/2021 patient seen in follow-up in intensive care unit, patient is being transferred out of intensive care unit to a regular medical surgical floor. He is awake and alert, in no acute distress, he is resting comfortably in bed, he is breathing comfortably, room air pulse ox is 94%, afebrile, hemodynamically his been stable. He remains on D5 point and was seen at a rate of 75 ML per hour, remains on Zosyn for empiric antibiotic coverage, sputum culture has shown Corynebacterium stratum, blood cultures have been negative. His last chest x- ray from 08/27/2021 showed COPD, small left pleural effusion. No new repeat chest x-ray, from pulmonary perspective his breathing has been stable. He has not required supplemental oxygen or BiPAP support. Patient's family has declined surgical debridement of his right lower extremity wound. Patient's CODE STATUS is DO NOT RESUSCITATE, he is quite frail, and generally debilitated. Currently discharge planning is in progress for transfer to [facility], and at this time patient's family declined hospice Objective - Vital Signs Vital signs: Vital Signs Temp 98.3 F 09/01/21 11:22 Pulse 74 09/01/21 11:22 Resp 18 09/01/21 11:22 BP 156/70 09/01/21 11:22 Pulse Ox 95 09/01/21 11:22 FiO2 35 08/30/21 07:11 Intake & Output 08/31/21 09/01/21 09/01/21 18:59 06:59 18:59 Intake Total 1060 900 150 Output Total 580 550 200 Balance 480 350 -50 Weight 61.2 kg 61.2 kg Intake: IV 960 900 150 Dextrose 5% in Water 1, 900 900 150 000 ml @ 75 mls/hr IV . [id number] GRACIE Rx#:[id number] Sodium Chloride 0.9% 1, 60 000 ml @ 20 mls/hr IV . Q24H GRACIE Rx#:[id number] Intake, IV Titration 100 Amount Piperacillin-Tazobactam 3 100 .375 gm In Sodium Chloride 0.9% 100 ml @ 25 mls/hr IVPB Q8HR GRACIE Rx# :[id number] Output: Urine 580 550 200 Other: Voiding Method Indwelling Catheter Indwelling Catheter Indwelling Catheter # Bowel Movements 1 ABP, PAP, CO, CI - Last Documented Arterial Blood Pressure 174/34 - Exam GENERAL EXAM: Drowsy, but arousable, 71-year-old frail-looking white male, on 2 L of oxygen, comfortable in no apparent distress. HEAD: Normocephalic/atraumatic. EYES: Normal reaction of pupils, equal size. Conjunctiva pink, sclera white. NOSE: Clear with pink turbinates. THROAT: No erythema or exudates. NECK: No masses, no JVD, no thyroid enlargement, no adenopathy. CHEST: No chest wall deformity. Symmetrical expansion. LUNGS: Equal air entry with no crackles, wheeze, rhonchi or dullness. CVS: Regular rate and rhythm, normal S1 and S2, no gallops, no murmurs, no rubs ABDOMEN: Soft, nontender. No hepatosplenomegaly, normal bowel sounds, no g uarding or rigidity. EXTREMITIES: No clubbing, no edema, no cyanosis, 2+ pulses and upper and lower extremities. MUSCULOSKELETAL: Muscle strength and tone normal. SPINE: No scoliosis or deformity SKIN: No rashes. Large-sized eschar over the right lower extremity with wound edges draining some yellow purulent material at the distal edges, and patient also has various wounds and skin tears on his heels, forearms and legs. She also has stage III sacral ulcer, and left hip ulcer. CENTRAL NERVOUS SYSTEM: Alert and oriented -1. No focal deficits, tone is normal in all 4 extremities. PSYCHIATRIC: Alert and oriented -1. Appropriate affect. Intact judgment and insight. - Labs CBC & Chem 7: 08/31/21 08:00 09/01/21 06:56 Labs: Abnormal Lab Results - Last 24 Hours (Table) 08/31/21 09/01/21 Range/Units 17:40 06:56 Sodium 136 L (137-145) mmol/L POC Glucose (mg/dL) 170 H (70-110) mg/dL Calcium 7.4 L (8.4-10.2) mg/dL Assessment and Plan Plan: Assessment: #1. Acute exacerbation of COPD, with acute hypoxic respiratory failure requiring intubation and mechanical ventilation on 08/19/2021. History is x-ray showed bilateral lower lobe infiltrates/effusions, and left perihilar pulmonary infiltrate. Patient was extubated on 08/27/2021 2 BiPAP support, which was gradually weaned off. Patient has a history of COPD, stage IV, with an FEV1 of 25% of predicted. Patient is extremely debilitated. CODE STATUS is currently DO NOT RESUSCITATE DO NOT INTUBATE. he remains on Zosyn, bronchodilators, and IV steroids, currently not requiring any BiPAP support. #2. A flutter with RVR, currently on amiodarone and Lovenox #3. History of severe end-stage COPD with baseline FEV1 of 0.5% of predicted #4. Chronic hypoxic respiratory failure related to the above #5. Former smoker #6. Nonhealing bilateral lower extremity ulcers #7. Elevated pro-calcitonin level, rule out possibility of infection #8. Mildly elevated d-dimer, with no CT evidence of pulmonary embolism #9. Focal scarring versus spiculated nodule in the right upper lobe, will need outpatient follow-up, and possible PET scan #10. Chronic cachexia #11. Hypertension #12. Hyperlipidemia #13. Hypothyroidism #14. Osteoarthritis #15. Hyperchloremic hypernatremia, mild, improved with free water supplements #16. Multiple wounds with a large eschar over the right lower extremity, and various wounds including stage III sacral wound, and left hip decubitus ulcer in addition to multiple skin tears Plan: Clinical patient has remained stable No worsening dyspnea or hypoxia No fever or chills Continue breathing treatments, continue antibiotics Maintain aspiration precautions Continue current medical treatment Continue antibiotics, breathing treatments Maintain aspiration precautions Continue prednisone taper Surgical debridement of the right lower extremity wound was declined by the family They feel patient is not strong enough for surgery Currently discharge planning is in progress for transfer to ECF We recommended hospice consultation however the patient's family has declined hospice at this time From pulmonary perspective he stable for discharge to ECF, once necessary arrangements have been completed I have personally seen and examined the patient, performed the documentation and the assessment and plan as written. Number of minutes spent on the visit: 15 Time with Patient: Less than 30
--- NOTE | 2021-09-01 14:54 | P.PN ---
Subjective Progress Note Date: 09/01/21 This is a pleasant 71 years old male with past medical history of COPD, Hyperlipidemia, Hypertension, Osteoarthritis , Metabolic Encaphalopathy, Acute kidney failure with tubular necrosis, Cachexia, Chronic non-pressure ulcer of back, Rhabdomylosis was sent from [facility] with increased weakness and lethargy over the last 2-3days Patient is poor historian but as per staff with . his he has been a usp for the last 1-2 months and his been confused. pt looks cachectic and very frail, he is oriented to time ,place and person , but has no denture, his voice is muffled because of that he is been complaining from dyspnea and chest pain which is mild in the middle nonradiating and associated with very little cough. He says his shortness of breath was worse over the last 1 day and a half. Denies any abdominal pain or vomiting or diarrhea but he has low appetite. He denies any choking or swallow problem but he has no denture so we'll check for swallow evaluation Patient looks tachypneic with bilateral chest with some limited air entry but no ricardo wheezing. Patient states that he quit smoking about 10 years ago, used to smoke for more than 10 years. No alcohol or illicit drugs. He has multiple pressure ulcers he has one large pressure ulcers on the right leg laterally with drying scab Or any dressing . Also has multiple pressure ulcers with black eschar on both heels and left foot. The surrounding skin looks intact with no redness or swelling. On admission he was slightly tachypneic on 20, afebrile and heart rate was 84 and blood pressure 141/64, however overnight his blood pressure dropped with systolic 90s to 100, currently his blood pressure 104/68, also became tachycardic with heart rate 04/17/2049. He was saturating 9920% on 2-3 L oxygen via nasal cannula. He is mildly hypothermic at 97.2 His WBC is elevated at 17.7. Hemoglobin is 10.0. Platelet count 258. INR 0.9. BUN is 32 and creatinine 0.9. Troponin is 0.02 and less than 0.01. Glucose was on the low side 57 on admission and currently is 201. Urinalysis showed 1+ protein with no evidence of infection. Patient started on steroids and got a breathing treatment, IV fluids and started on amiodarone drips and Lovenox in the emergency room. D-dimer was elevated, therefore CTA of the chest was done which showed negative for pulmonary embolism, emphysematous changes with small pleural effusion. Also there is focal scattered versus speculated nodule in the right upper lobe we ordered stat CT of the brain and CT of the chest to rule out pulmonary embolism given his hypotension, tachycardia and tachypnea with elevated d-dimer. Also with mild hypoxia suspected. However patient confused per staff when he came in and could not be started on heparin drip before we rule out intracranial bleed before CT of the brain is also ordered with CT of the chest. Both tests came back negative 08/19/2021 Patient today during morning rounds found obtunded and responsive and unarousable with impending respiratory failure and he was transferred to the intensive care unit he got intubated and placed on mechanical ventilation with pulmonary/critical care team following closely and held with and management. His WBCs 11.6, hemoglobin 8.6, creatinine 1.4. chest x-ray sewn bilateral worsening infiltrates especially in the lower zones mood versus worsening infection His continued counseling atrial 60 mg, antibiotic form of Zosyn and amiodarone drip for developing A. fib and RVR. High-dose tenderness on hold 08/20/2021 Patient remains in the ICU intubated and sedated, he still tachypneic with respiratory rate of 28, his PEEP of 8.0 today. His hemoglobin is 7.1, creatinine 1.4. Remains on IV Solu-Medrol and Zosyn. Also is on amiodarone drip, and normal saline at 100 mL per hour. He still has bilateral leg ulceration with dried surface. Ultrasound showing evidence of chronic left DVT, currently he is on Lovenox 50 mg twice daily 08/21/2021 patient remains in the ICU sedated and intubated with pulmonary/critical care team following him closely and help with vent management . He is still on high PEEP relatively at 8 and FiO2 of 35%. He is tachypneic and tachycardic WBC 6.6, hemoglobin 7.5, creatinine improvement 1.2, chest x-ray showing no change. He remains on Zosyn, IV Solu-Medrol and normal saline 08/22/2021 Patient continues to be in the MICU with multiple medical consultations following. Pulmonary intensivists following and patient is maintained on IV steroids, duonebs, and IV antibiotics and will continue. Patient continues on vent with an FI02 of 30% and peep being weaned somewhat from 8 to 6 today. Chest xray is similar to previous day with no real improvement. Patient is afebrile. Patient overall prognosis is extremely poor and guarded and code status to be addressed. Cardiology following as well and have increased the metoprolol and continues on amiodarone. 08/23/2021 Patient continues to be in the ICU on mechanical vent with an FI02 of 30% and p eep is 6. Patient on sedation with holidays being conducted. Not tolerating and no plan for extubation at this time. General surgery consulted for right willis ulcer that has a large scab over it and apparently now some purulent drainage is noted. Possible debridement of the wound and recommend obtaining cultures. Patient is afebrile and sodium is elevated and IV fluids being transitioned to D5 in Water. Recommend repeat labs. 08/24/2021 Patient continues to be closely monitored in the medical ICU and maintained on mechanical vent. Chest x-ray shows persistent patchy opacification the left mid and lower lung zone slightly more prominent today with no progressive right pulmonary consolidation and grossly stable pleural effusions and also incidental finding of NG tube that needs further advancing into the stomach. Patient is continued on enteral nutrition via NG. Patient remains on mechanical vent with an FiO2 of 30% and PEEP is 6. Patient also continues on D5 in water and sodium is 142 today with a potassium of 3.9, creatinine is 0.87. Hemoglobin is 7.4 and WBC is 14.8 which is on an upward trend. Patient is afebrile. Patient continues on breathing inhalational treatments along with IV steroids 60 every 6 and IV Zosyn and is sedated with propofol at this time. Patient is tentatively scheduled for debridement of the right willis today. 08/25/2021 Patient is seen in follow-up in the ICU with multiple medical consultations following. Patient continues on mechanical vent with an FiO2 of 30% and PEEP is 6. Patient is currently off sedation and on Precedex low-dose. Attempting CPAP trials per pulmonary. Contemplating possible tracheostomy family continues to wish for the patient to remain full code. Patient is high risk for remaining on mechanical ventilation given his extensive comorbidities. Per nursing staff patient was not following commands although on exam right are asked patient to nod head yes or no is having any pain and patient nodded had no. Will then look around the room and stare off at the coats. Patient is extremely cachectic and ill-appearing and lethargic. Pulmonary following along with general surgery and plan is for possible debridement of that right willis in the a.m. Chest x-ray shows less prominent infiltration the left lower lung zone and unchanged remainder of the lungs. Patient also continues on breathing inhalational loyda tments along with IV steroids and IV Zosyn. Recommend electrolyte replacement per protocol and were within normal limits today. WBC mildly elevated and trending upward at 15.2, hemoglobin is 7.8. Patient is afebrile. 08/26/2021 Patient continues in the ICU and currently off pressor support. Patient is on low dose precedex and assessing for weaning parameters and currently maintained on cpap assist mode with 5/5 settings. When on vent Fio2 is 30% with a peep of 6. Patient family has made the patient no code and has cancelled the debridement of the right willis wound with general surgery. Possible extubation in the near future and no plans for reintubation. Patient WBC trending down and proc alcitonin is 0.07 and maintained on IV abx with ID following. Sputum likely colonization. Overall prognosis is poor and guarded. Patient is afebrile 08/27/2021 Patient seen on follow-up in the ICU, he is currently intubated on mechanical ventilation, pressure support of 5, PEEP of 6 ABG from today shows pH 7.37, pCO2 50, pO2 170. He is currently on Precedex, but is alert opening his eyes, however today shows his hypernatremia[place] [address] receiving IV hydration with D5 water. Currently hemodynamically stable, no fevers. Continues antimicrobial therapy of Zosyn as coronary bacterium growing in the sputum is continued on systemic steroids. Stable creatinine 0.87, blood sugars been running in the 200s he is on sliding scale coverage. 08/28/2021 Patient is extubated patient has diminished breath sounds but not wheezing at this time. 08/29/2021 Patient is seen in follow-up this morning awaiting transfer out of ICU as patient has been downgraded to [facility] and awaiting a bed. Patient was recently extubated and currently maintained on 2 L via nasal cannula. Patient is eating and tolerating an oral intake remains poor but is fair. Family at the bedside reports that they would like [facility] on the [place] when stabilized and discharged and social work following and working on accepting facility. Gen. surgery on standby in the event family changes their mind about debridement of the wounds. WBCs elevated at 15.2 and patient remains on IV antibiotics. Sodium elevated at 144 and will continue D5 in water and follow-up with repeat labs and also recommended chest x-ray in the morning. Patient also continues with DuoNeb treatments along with IV steroids which are being decreased by pulmonary. Will follow-up on labs tomorrow and discuss with pulmonary about discharge planning. Family at the bedside also adamant about changing providers as they are not happy with the current provider. 08/30/2021 Patient is seen today and hemoglobin low today at 6.4and will transfuse a unit of PRBC. Family refusing any further surgical treatment of wounds at this time as they feel patient is too weak. Patient awaiting transfer out of the ICU. Patient accepted at [facility] and will discuss further with about overall poor prognosis and possible hospice care. Social work following. Patient is afebrile and currently maintained on IV abx. IV steroids being titrated down. Patient denies chest pain or worsening shortness of breath. 08/31/2021 Patient is evaluated today and continues in the ICU. Patient is currently on room air and continued on breathing treatments. IV steroids transitioned to oral prednisone and continues on IV zosyn. Patient is afebrile. Hemoglobin improved to 8 after transfusion yesterday and no active bleeding noted. No plans for surgical intervention of the wounds at this time per family. Family undecided about hospice at this time. Overall poor prognosis. Patient denies chest pain or palpitations. Denies worsening shortness of breath. Patient is significantly weak. 09/01/2021 Patient was seen in follow-up this morning has been transferred out of the ICU currently stable. Patient being followed by infectious disease along with pu lmonary supervisor [facility] and currently maintained on IV antibiotics in the form of Zosyn. No plans for surgical intervention of the multiple wounds and recommending continuing with local wound care. Discussed extensively with the about treatment plan and discharge planning moving forward and patient would like him to go to [facility] on the [place] and case management following an patient may likely need authorization which will be started with possible discharge in 24 hours. Patient is continued on breathing inhalational treatments and has been transitioned to oral steroids. Patient continues with poor oral intake and needs encouragement eating and assistance with eating as patient continues to be extremely weak. Hemoglobin is improved after transfusion and currently stable at this time. Cardiology also following and maintained on oral amiodarone and Lopressor and will continue. Patient's overall prognosis is extremely poor and guarded and this was also discussed with over the phone. Patient is afebrile denies any worsening shortness of breath or chest pains. Patient currently maintained on room air at 95% oxygen saturation. Review of systems: Constitutional: reports of fatigue, no fever, or chills Cardiovascular: No reports of chest pain or palpitations Respiratory: No reports of worsening shortness of breath or cough GI: No reports of nausea, vomiting, or diarrhea : No reports of dysuria or retention Neurovascular: reports of weakness All medications have been reviewed Active Medications Acetaminophen (Acetaminophen Tab 325 Mg Tab) 650 mg PO Q4H PRN PRN Reason: Pain or Fever > 100.5 Albuterol/Ipratropium (Ipratropium-Albuterol 3 Ml Neb) 3 ml INHALATION RT-Q4H PRN PRN Reason: Shortness Of Breath Or Wheezing Albuterol/Ipratropium (Ipratropium-Albuterol 3 Ml Neb) 3 ml INHALATION RT-QID [facility] Last Admin: 09/01/21 11:49 Dose: Not Given Amiodarone HCl (Amiodarone 200 Mg Tab) 200 mg PO BID [facility] Last Admin: 09/01/21 08:09 Dose: 200 mg Amlodipine Besylate (Amlodipine 10 Mg Tab) 10 mg PO DAILY [facility] Last Admin: 09/01/21 08:09 Dose: 10 mg Budesonide (Budesonide 1 Mg/2 Ml Nebu) 1 mg INHALATION RT-BID [facility] Last Admin: 09/01/21 08:20 Dose: 1 mg Famotidine (Famotidine 20 Mg Tab) 20 mg PO DAILY [facility] Last Admin: 09/01/21 08:09 Dose: 20 mg Formoterol Fumarate (Formoterol Fumarate 20 Mcg/2 Ml Nebu) 20 mcg INHALATION RT-BID [facility] Last Admin: 09/01/21 08:20 Dose: 20 mcg Hydromorphone HCl (Hydromorphone 1 Mg/Ml 1 Ml Syringe) 1 mg IVP Q2HR PRN PRN Reason: Pain Last Admin: 09/01/21 04:41 Dose: 1 mg Dextrose/Water (Dextrose 5%-Water Iv Soln) 1,000 mls @ 75 mls/hr IV .[id number] [facility] Last Admin: 09/01/21 02:21 Dose: 75 mls/hr Piperacillin Sod/Tazobactam (Sod 3.375 gm/ Sodium Chloride) 100 mls @ 25 mls/hr IVPB Q8HR [facility]; Protocol Last Admin: 09/01/21 08:08 Dose: 25 mls/hr Insulin Aspart (Insulin Aspart (Novolog) 100 Unit/Ml Vial) 0 unit SQ Q6HR [facility]; Protocol Last Admin: 09/01/21 12:50 Dose: Not Given Levothyroxine Sodium (Levothyroxine 50 Mcg Tab) 50 mcg PO DAILY@0500 [facility] Last Admin: 09/01/21 04:42 Dose: 50 mcg Losartan Potassium (Losartan 50 Mg Tab) 50 mg PO HS [facility] Last Admin: 08/31/21 20:42 Dose: 50 mg Metoprolol Tartrate (Metoprolol Tartrate 50 Mg Tab) 100 mg PO BID [facility] Last Admin: 09/01/21 08:09 Dose: 100 mg Miscellaneous Information (Magnesium Replacement Protocol 1 Each Misc) 1 each MISCELLANE DAILY PRN; Protocol PRN Reason: Per Protocol Miscellaneous Information (Potassium Replacement Protocol 1 Each Misc) 1 each MISCELLANE DAILY PRN; Protocol PRN Reason: Per Protocol Naloxone HCl (Naloxone 0.4 Mg/Ml 1 Ml Vial) 0.2 mg IV Q2M PRN PRN Reason: Opioid Reversal Prednisone (Prednisone 20 Mg Tab) 40 mg PO DAILY [facility] Last Admin: 09/01/21 08:09 Dose: 40 mg Tramadol HCl (Tramadol 50 Mg Tab) 50 mg PO Q6H PRN PRN Reason: Pain Last Admin: 08/31/21 16:06 Dose: 50 mg Physical Exam: GENERAL: The patient is alert and continues on room air today. Patient is awake. Thin built, ill-appearing, cachectic HEENT: Pupils are round and equally reacting to light. EOMI. No scleral icterus. No conjunctival pallor. Normocephalic, atraumatic. No pharyngeal erythema. No thyromegaly. CARDIOVASCULAR: S1 and S2 present. No murmurs, rubs, or gallops. PULMONARY: Decreased air entry with scattered diffuse rhonchi ABDOMEN: Soft, nontender, nondistended, normoactive bowel sounds. No palpable organomegaly. MUSCULOSKELETAL: No joint swelling or deformity. EXTREMITIES: No cyanosis, clubbing, or pedal edema. Multiple bilateral leg ulcers including both heels and right lateral willis with large scabbing noted over entire surface of the wound. continued purulent drainage noted from the willis. No evidence of overt surrounding cellulitis NEUROLOGICAL: Gross neurological examination did not reveal any focal deficits. Diffusely weak SKIN: No rashes. no petechiae. Assessment: Acute hypoxic respiratory failure requiring intubation and mechanical ventilation secondary to End stage COPD, extubated on 08/28/2021 Sepsis, present on admission most likely secondary to multiple pressure ulcers that appear infected COPD with exacerbation Chronic anemia Hypovolemic hyponatremia, improved Aflutter with RVR, currently rate controlled Moderate calorie malnutrition with a BMI of 21.1 multiple leg wounds focal scar versus speculated nodule in the right upper lobe, will need outpatient PET scan History of hypertension, currently he is hypotensive Hyperlipidemia Dehydration Chronic altered mental status with some elements of acute related to metabolic encephalopathy. Possible dementia History of osteoarthritis History of chronic nonpressure ulcer of the back DVT prophylaxis: Subcutaneous Lovenox GI Prophylaxis: Pepcid No code Plan: Recommend to continue on antibiotics and infectious disease is following. Continue with local wound care and will continue with Zosyn for now and transition to oral Augmentin on discharge no plans for surgical intervention of debridements of the wounds Patient was recently extubated on 08/28/2021 and currently maintained on room air and doing relatively well. Patient accepted at [facility] with possible discharge in 24-48 hours. Family planning palliative care and hospice at this time. Recommend to continue on breathing inhalational treatments. Maintained on oral prednisone. Recommend follow-up with am labs and replace electrolytes per protocol. Potassium was 3.2 Pulmonary and cardiology following Overall Prognosis is extremely poor and guarded CODE STATUS no code per The impression and plan of care has been dictated by Lucy Reyes, Nurse Practitioner as directed. Dr. Navi MD I have performed a history and examination and MDM of this patient, discussed the same with the dictator, and agree with the dictator's assessment and plan as written ,documented as a scribe. Based on total visit time, I have performed more than 50% of the visit. Objective - Vital Signs Vital signs: Vital Signs Temp 97.9 F 09/01/21 04:00 Pulse 66 09/01/21 08:44 Resp 17 09/01/21 06:00 BP 135/51 09/01/21 06:00 Pulse Ox 93 L 09/01/21 06:00 FiO2 35 08/30/21 07:11 Intake & Output 08/31/21 09/01/21 09/01/21 18:59 06:59 18:59 Intake Total 1060 900 Output Total 580 550 Balance 480 350 Weight 61.2 kg Intake: IV 960 900 Dextrose 5% in Water 1, 900 900 000 ml @ 75 mls/hr IV . [id number] [facility] Rx#:[id number] Sodium Chloride 0.9% 1, 60 000 ml @ 20 mls/hr IV . Q24H [facility] Rx#:[id number] Intake, IV Titration 100 Amount Piperacillin-Tazobactam 3 100 .375 gm In Sodium Chloride 0.9% 100 ml @ 25 mls/hr IVPB Q8HR [facility] Rx# :[id number] Output: Urine 580 550 Other: Voiding Method Indwelling Catheter Indwelling Catheter # Bowel Movements 1 ABP, PAP, CO, CI - Last Documented Arterial Blood Pressure 174/34 - Labs CBC & Chem 7: 08/31/21 08:00 09/01/21 06:56 Labs: Abnormal Lab Results - Last 24 Hours (Table) 08/31/21 08/31/21 09/01/21 Range/Units 11:35 17:40 06:56 Sodium 136 L (137-145) mmol/L POC Glucose (mg/dL) 240 H 170 H (75-99) mg/dL Calcium 7.4 L (8.4-10.2) mg/dL
[2021-09-01 18:25] LABS: Glucose,Whole Blood 176 mg/dL (70-110)
[2021-09-01 20:30] LABS: Glucose,Whole Blood 107 mg/dL (70-110)
[2021-09-01] MEDS: LOSARTAN 50 MG TAB PO SCH (22:26)
[2021-09-01 23:40] LABS: Glucose,Whole Blood 123 mg/dL (70-110)
[2021-09-02] MEDS: HYDROmorphone 1 MG/ML 1 ML SYRINGE IVP PRN ×4 (02:23→20:38)
[2021-09-02] MEDS: DEXTROSE 5% IN WATER 1,000 ML IV SCH (05:32)
[2021-09-02 06:09] LABS: Glucose,Whole Blood 94 mg/dL (70-110)
[2021-09-02] MEDS: LEVOTHYROXINE 50 MCG TAB PO SCH (06:17)
[2021-09-02] MEDS: INSULIN ASPART (NovoLOG) 100 UNIT/ML VIAL SQ SCH ×3 (06:18→17:34)
--- NOTE | 2021-09-02 08:22 | XR ---
EXAMINATION TYPE: XR chest 1V portable DATE OF EXAM: 09/02/2021 Comparison: 08/27/2021 Clinical History: 71-year-old male pneumonia Findings: Interval extubation. Left subclavian CVC tip at the cavoatrial junction. Heart normal size. Hyperinfl ation. Increasing small left pleural effusion now with opacity extending to the lower third left lung . Impression: COPD with increasing small left pleural effusion and adjacent atelectasis and/or consolidation.
[2021-09-02] MEDS: IPRATROPIUM-ALBUTEROL 3 ML NEB INHALATION SCH ×4 (08:27→20:17)
[2021-09-02] MEDS: FORMOTEROL FUMARATE 20 MCG/2 ML NEBU INHALATION SCH ×2 (08:28→20:17)
[2021-09-02] MEDS: BUDESONIDE 1 MG/2 ML NEBU INHALATION SCH ×2 (08:28→20:17)
[2021-09-02] MEDS: PIPERACILLIN-TAZOBACTAM 3.375 GM in SODIUM CHLORIDE 0.9% 100 ML IVPB SCH (08:52)
[2021-09-02] MEDS: METOPROLOL TARTRATE 50 MG TAB PO SCH ×2 (08:52→20:38)
[2021-09-02] MEDS: amLODIPine 10 MG TAB PO SCH (08:52)
[2021-09-02] MEDS: predniSONE 20 MG TAB PO SCH (08:53)
[2021-09-02] MEDS: FAMOTIDINE 20 MG TAB PO SCH (08:53)
[2021-09-02] MEDS: AMIODARONE 200 MG TAB PO SCH ×2 (08:53→20:37)
[2021-09-02 11:32] LABS: Glucose,Whole Blood 120 mg/dL (70-110)
--- NOTE | 2021-09-02 13:57 | P.PN ---
Subjective Progress Note Date: 09/02/21 CHIEF COMPLAINT: Right leg wound HISTORY OF PRESENT ILLNESS: Patient is on regular medical floor. Lying in bed comfortably. Surgical service is following in regards to right leg pressure ulcer. Family had declined having the leg ulcer debrided. Social work is working on placement for patient. Patient's family has declined hospice at this time. Patient seen and examined with Dr. corbin EXAM: VITAL SIGNS: Reviewed. ABDOMEN: Soft. Nondistended. Extremities right lower leg pressure ulceration with large scab and drainage. edges of scab are becoming softer ASSESSMENT: 1. Right lower leg pressure ulcer PLAN: -No surgical intervention planned per family's request. -Continue supportive care Physician In Room Dining Server note has been reviewed by physician. Signing provider agrees with the documented findings, assessment, and plan of care. Objective - Vital Signs Vital signs: Vital Signs Temp 98.5 F 09/02/21 07:31 Pulse 88 09/02/21 11:31 Resp 16 09/02/21 07:31 BP 146/71 09/02/21 07:31 Pulse Ox 94 L 09/02/21 08:28 FiO2 35 08/30/21 07:11 Intake & Output 09/01/21 09/02/21 09/02/21 18:59 06:59 18:59 Intake Total 742 450 Output Total 1500 550 Balance -758 -100 Weight 61.2 kg Intake: IV 150 450 Dextrose 5% in Water 1, 150 450 000 ml @ 75 mls/hr IV . [id number] [facility] Rx#:[id number] Oral 592 Output: Urine 1500 550 Uretheral ([place]os) 550 Other: Voiding Method Indwelling Catheter Indwelling Catheter Indwelling Catheter ABP, PAP, CO, CI - Last Documented Arterial Blood Pressure 174/34 - Labs CBC & Chem 7: 08/31/21 08:00 09/01/21 06:56 Labs: Abnormal Lab Results - Last 24 Hours (Table) 09/01/21 09/01/21 09/02/21 Range/Units 18:24 23:37 08:08 POC Glucose (mg/dL) 176 H 123 H (70-110) mg/dL C-Reactive Protein 1.40 H (0.00-0.80) mg/dL 09/02/21 Range/Units 11:30 POC Glucose (mg/dL) 120 H (70-110) mg/dL C-Reactive Protein (0.00-0.80) mg/dL
[2021-09-02 17:01] LABS: Glucose,Whole Blood 162 mg/dL (70-110)
[2021-09-02] MEDS: LOSARTAN 50 MG TAB PO SCH (20:37)
--- NOTE | 2021-09-02 22:41 | P.PN ---
Subjective Progress Note Date: 09/01/21 Principal diagnosis: Possible aspiration pneumonia and multiple pressure ulcers She is a 71-year-old male with a past medical history significant for end-stage COPD admitted to the hospital with weakness and some shortness of breath patient did have worsening of his respiratory status requiring intubation and admission to the ICU, patient also have multiple pressure ulcers. Patient subsequently has been successfully extubated on 08/27/2021 On today's evaluation 09/01/2021, the patient continues to be afebrile, patient is breathing comfortably on room air, patient denies any chest pain did have occasional cough, no vomiting or diarrhea or any changes reported by the nursing staff, patient was noticed to have significant bruising to the right posterior thigh Objective - Vital Signs Vital signs: Vital Signs Temp 98.9 F 09/01/21 14:00 Pulse 73 09/01/21 14:00 Resp 16 09/01/21 14:00 BP 146/70 09/01/21 14:00 Pulse Ox 95 09/01/21 14:00 FiO2 35 08/30/21 07:11 Intake & Output 08/31/21 09/01/21 09/01/21 18:59 06:59 18:59 Intake Total 1060 900 446 Output Total 580 550 300 Balance 480 350 146 Weight 61.2 kg 61.2 kg Intake: IV 960 900 150 Dextrose 5% in Water 1, 900 900 150 000 ml @ 75 mls/hr IV . [id number] [facility] Rx#:[id number] Sodium Chloride 0.9% 1, 60 000 ml @ 20 mls/hr IV . Q24H [facility] Rx#:[id number] Intake, IV Titration 100 Amount Piperacillin-Tazobactam 3 100 .375 gm In Sodium Chloride 0.9% 100 ml @ 25 mls/hr IVPB Q8HR [facility] Rx# :[id number] Oral 296 Output: Urine 580 550 300 Other: Voiding Method Indwelling Catheter Indwelling Catheter Indwelling Catheter # Bowel Movements 1 ABP, PAP, CO, CI - Last Documented Arterial Blood Pressure 174/34 - Exam GENERAL DESCRIPTION: An elderly male lying in bed in no distress RESPIRATORY SYSTEM: Unlabored breathing , decreased breath sounds at bases HEART: S1 S2 regular rate and rhythm , ABDOMEN: Soft , no tenderness EXTREMITIES: Right posterior thigh any significant bruising no redness - Labs CBC & Chem 7: 08/31/21 08:00 09/01/21 06:56 Labs: Abnormal Lab Results - Last 24 Hours (Table) 08/31/21 09/01/21 Range/Units 17:40 06:56 Sodium 136 L (137-145) mmol/L POC Glucose (mg/dL) 170 H (70-110) mg/dL Calcium 7.4 L (8.4-10.2) mg/dL Assessment and Plan (1) Pneumonia Current Visit: Yes Status: Acute Code(s): J18.9 - PNEUMONIA, UNSPECIFIED OR GANISM SNOMED Code(s): 903971635 Plan: 1patient presented to hospital with increasing shortness of breath could be related to her underlying cardiac etiology, patient subsequently did have worsening of his respiratory status requiring intubation and concern for possible aspiration. 2sputum culture grew Corynebacterium more likely colonization 3patient to continue local wound care with Medihoney to the left thigh wound with a slough rest of the wound with a dry necrotic area to keep them dry and of the pressure. 4-patient to continue with the Zosyn we will recheck his pro-calcitonin if normalize we'll consider discontinuation of antibiotics. 5right posterior thigh bruising heart and has been advised to bruna the area to make sure is not getting any worse Time with Patient: Less than 30
--- NOTE | 2021-09-02 22:43 | P.PN ---
Subjective Progress Note Date: 09/02/21 Principal diagnosis: Possible aspiration pneumonia and multiple pressure ulcers She is a 71-year-old male with a past medical history significant for end-stage COPD admitted to the hospital with weakness and some shortness of breath patient did have worsening of his respiratory status requiring intubation and admission to the ICU, patient also have multiple pressure ulcers. Patient subsequently has been successfully extubated on 08/27/2021 On today's evaluation 09/02/2021, the patient remains to be afebrile, patient is breathing comfortably on room air, patient denies chest pain or any worsening cough, no vomiting or diarrhea or any changes reported by the nursing staff Objective - Vital Signs Vital signs: Vital Signs Temp 98.5 F 09/02/21 07:31 Pulse 88 09/02/21 11:31 Resp 16 09/02/21 07:31 BP 146/71 09/02/21 07:31 Pulse Ox 94 L 09/02/21 08:28 FiO2 35 08/30/21 07:11 Intake & Output 09/01/21 09/02/21 09/02/21 18:59 06:59 18:59 Intake Total 742 450 Output Total 1500 550 Balance -758 -100 Weight 61.2 kg Intake: IV 150 450 Dextrose 5% in Water 1, 150 450 000 ml @ 75 mls/hr IV . [id number] [facility] Rx#:[id number] Oral 592 Output: Urine 1500 550 Uretheral ([place]) 550 Other: Voiding Method Indwelling Catheter Indwelling Catheter Indwelling Catheter ABP, PAP, CO, CI - Last Documented Arterial Blood Pressure 174/34 - Exam GENERAL DESCRIPTION: An elderly male lying in bed in no distress RESPIRATORY SYSTEM: Unlabored breathing , decreased breath sounds at bases HEART: S1 S2 regular rate and rhythm , ABDOMEN: Soft , no tenderness EXTREMITIES: Right posterior thigh is currently covered with a complex no drainage on the dressing - Labs CBC & Chem 7: 08/31/21 08:00 09/01/21 06:56 Labs: Abnormal Lab Results - Last 24 Hours (Table) 09/01/21 09/01/21 09/02/21 Range/Units 18:24 23:37 08:08 POC Glucose (mg/dL) 176 H 123 H (70-110) mg/dL C-Reactive Protein 1.40 H (0.00-0.80) mg/dL 09/02/21 Range/Units 11:30 POC Glucose (mg/dL) 120 H (70-110) mg/dL C-Reactive Protein (0.00-0.80) mg/dL Assessment and Plan (1) Pneumonia Current Visit: Yes Status: Acute Code(s): J18.9 - PNEUMONIA, UNSPECIFIED ORGANISM SNOMED Code(s): 183787905 Plan: 1patient presented to hospital with increasing shortness of breath could be related to her underlying cardiac etiology, patient subsequently did have worsening of his respiratory status requiring intubation and concern for possible aspiration. 2sputum culture grew Corynebacterium more likely colonization 3patient to continue local wound care with Medihoney to the left thigh wound with a slough rest of the wound with a dry necrotic area to keep them dry and of the pressure. 4- right posterior thigh bruising area has been marked and continue with the current protective dressing 5patient underlying pneumonia has been adequately treated and received more than 2 weeks of antibiotic procalcitonin and is normal we'll discontinue Zosyn and monitor the patient closely off antibiotic Time with Patient: Less than 30
--- NOTE | 2021-09-02 23:47 | P.PN ---
Subjective Progress Note Date: 09/02/21 This is a pleasant 71 years old male with past medical history of COPD, Hyperlipidemia, Hypertension, Osteoarthritis , Metabolic Encaphalopathy, Acute kidney failure with tubular necrosis, Cachexia, Chronic non-pressure ulcer of back, Rhabdomylosis was sent from [facility] with increased weakness and lethargy over the last 2-3days Patient is poor historian but as per staff with . his he has been a long-term for the last 1-2 months and his been confused. pt looks cachectic and very frail, he is oriented to time ,place and person , but has no denture, his voice is muffled because of that he is been complaining from dyspnea and chest pain which is mild in the middle nonradiating and associated with very little cough. He says his shortness of breath was worse over the last 1 day and a half. Denies any abdominal pain or vomiting or diarrhea but he has low appetite. He denies any choking or swallow problem but he has no denture so we'll check for swallow evaluation Patient looks tachypneic with bilateral chest with some limited air entry but no ricardo wheezing. Patient states that he quit smoking about 10 years ago, used to smoke for more than 10 years. No alcohol or illicit drugs. He has multiple pressure ulcers he has one large pressure ulcers on the right leg laterally with drying scab Or any dressing . Also has multiple pressure ulcers with black eschar on both heels and left foot. The surrounding skin looks intact with no redness or swelling. On admission he was slightly tachypneic on 20, afebrile and heart rate was 84 and blood pressure 141/64, however overnight his blood pressure dropped with systolic 90s to 100, currently his blood pressure 104/68, also became tachycardic with heart rate 04/17/2049. He was saturating 9920% on 2-3 L oxygen via nasal cannula. He is mildly hypothermic at 97.2 His WBC is elevated at 17.7. Hemoglobin is 10.0. Platelet count 258. INR 0.9. BUN is 32 and creatinine 0.9. Troponin is 0.02 and less than 0.01. Glucose was on the low side 57 on admission and currently is 201. Urinalysis showed 1+ protein with no evidence of infection. Patient started on steroids and got a breathing treatment, IV fluids and started on amiodarone drips and Lovenox in the emergency room. D-dimer was elevated, therefore CTA of the chest was done which showed negative for pulmonary embolism, emphysematous changes with small pleural effusion. Also there is focal scattered versus speculated nodule in the right upper lobe we ordered stat CT of the brain and CT of the chest to rule out pulmonary embolism given his hypotension, tachycardia and tachypnea with elevated d-dimer. Also with mild hypoxia suspected. However patient confused per staff when he came in and could not be started on heparin drip before we rule out intracranial bleed before CT of the brain is also ordered with CT of the chest. Both tests came back negative 08/19/2021 Patient today during morning rounds found obtunded and responsive and unarousable with impending respiratory failure and he was transferred to the intensive care unit he got intubated and placed on mechanical ventilation with pulmonary/critical care team following closely and held with and management. His WBCs 11.6, hemoglobin 8.6, creatinine 1.4. chest x-ray sewn bilateral worsening infiltrates especially in the lower zones mood versus worsening infection His continued counseling atrial 60 mg, antibiotic form of Zosyn and amiodarone drip for developing A. fib and RVR. High-dose tenderness on hold 08/20/2021 Patient remains in the ICU intubated and sedated, he still tachypneic with respiratory rate of 28, his PEEP of 8.0 today. His hemoglobin is 7.1, creatinine 1.4. Remains on IV Solu-Medrol and Zosyn. Also is on amiodarone drip, and normal saline at 100 mL per hour. He still has bilateral leg ulceration with dried surface. Ultrasound showing evidence of chronic left DVT, currently he is on Lovenox 50 mg twice daily 08/21/2021 patient remains in the ICU sedated and intubated with pulmonary/critical care team following him closely and help with vent management . He is still on high PEEP relatively at 8 and FiO2 of 35%. He is tachypneic and tachycardic WBC 6.6, hemoglobin 7.5, creatinine improvement 1.2, chest x-ray showing no change. He remains on Zosyn, IV Solu-Medrol and normal saline 08/22/2021 Patient continues to be in the MICU with multiple medical consultations following. Pulmonary intensivists following and patient is maintained on IV steroids, duonebs, and IV antibiotics and will continue. Patient continues on vent with an FI02 of 30% and peep being weaned somewhat from 8 to 6 today. Chest xray is similar to previous day with no real improvement. Patient is afebrile. Patient overall prognosis is extremely poor and guarded and code status to be addressed. Cardiology following as well and have increased the metoprolol and continues on amiodarone. 08/23/2021 Patient continues to be in the ICU on mechanical vent with an FI02 of 30% and p eep is 6. Patient on sedation with holidays being conducted. Not tolerating and no plan for extubation at this time. General surgery consulted for right willis ulcer that has a large scab over it and apparently now some purulent drainage is noted. Possible debridement of the wound and recommend obtaining cultures. Patient is afebrile and sodium is elevated and IV fluids being transitioned to D5 in Water. Recommend repeat labs. 08/24/2021 Patient continues to be closely monitored in the medical ICU and maintained on mechanical vent. Chest x-ray shows persistent patchy opacification the left mid and lower lung zone slightly more prominent today with no progressive right pulmonary consolidation and grossly stable pleural effusions and also incidental finding of NG tube that needs further advancing into the stomach. Patient is continued on enteral nutrition via NG. Patient remains on mechanical vent with an FiO2 of 30% and PEEP is 6. Patient also continues on D5 in water and sodium is 142 today with a potassium of 3.9, creatinine is 0.87. Hemoglobin is 7.4 and WBC is 14.8 which is on an upward trend. Patient is afebrile. Patient continues on breathing inhalational treatments along with IV steroids 60 every 6 and IV Zosyn and is sedated with propofol at this time. Patient is tentatively scheduled for debridement of the right willis today. 08/25/2021 Patient is seen in follow-up in the ICU with multiple medical consultations following. Patient continues on mechanical vent with an FiO2 of 30% and PEEP is 6. Patient is currently off sedation and on Precedex low-dose. Attempting CPAP trials per pulmonary. Contemplating possible tracheostomy family continues to wish for the patient to remain full code. Patient is high risk for remaining on mechanical ventilation given his extensive comorbidities. Per nursing staff patient was not following commands although on exam right are asked patient to nod head yes or no is having any pain and patient nodded had no. Will then look around the room and stare off at the coats. Patient is extremely cachectic and ill-appearing and lethargic. Pulmonary following along with general surgery and plan is for possible debridement of that right willis in the a.m. Chest x-ray shows less prominent infiltration the left lower lung zone and unchanged remainder of the lungs. Patient also continues on breathing inhalational loyda tments along with IV steroids and IV Zosyn. Recommend electrolyte replacement per protocol and were within normal limits today. WBC mildly elevated and trending upward at 15.2, hemoglobin is 7.8. Patient is afebrile. 08/26/2021 Patient continues in the ICU and currently off pressor support. Patient is on low dose precedex and assessing for weaning parameters and currently maintained on cpap assist mode with 5/5 settings. When on vent Fio2 is 30% with a peep of 6. Patient family has made the patient no code and has cancelled the debridement of the right willis wound with general surgery. Possible extubation in the near future and no plans for reintubation. Patient WBC trending down and proc alcitonin is 0.07 and maintained on IV abx with ID following. Sputum likely colonization. Overall prognosis is poor and guarded. Patient is afebrile 08/27/2021 Patient seen on follow-up in the ICU, he is currently intubated on mechanical ventilation, pressure support of 5, PEEP of 6 ABG from today shows pH 7.37, pCO2 50, pO2 170. He is currently on Precedex, but is alert opening his eyes, however today shows his hypernatremia[place] [address] receiving IV hydration with D5 water. Currently hemodynamically stable, no fevers. Continues antimicrobial therapy of Zosyn as coronary bacterium growing in the sputum is continued on systemic steroids. Stable creatinine 0.87, blood sugars been running in the 200s he is on sliding scale coverage. 08/28/2021 Patient is extubated patient has diminished breath sounds but not wheezing at this time. 08/29/2021 Patient is seen in follow-up this morning awaiting transfer out of ICU as patient has been downgraded to and awaiting a bed. Patient was recently extubated and currently maintained on 2 L via nasal cannula. Patient is eating and tolerating an oral intake remains poor but is fair. Family at the bedside reports that they would like [facility] [place] when stabilized and discharged and social work following and working on accepting facility. Gen. surgery on standby in the event family changes their mind about debridement of the wounds. WBCs elevated at 15.2 and patient remains on IV antibiotics. Sodium elevated at 144 and will continue D5 in water and follow-up with repeat labs and also recommended chest x-ray in the morning. Patient also continues with DuoNeb treatments along with IV steroids which are being decreased by pulmonary. Will follow-up on labs tomorrow and discuss with pulmonary about discharge planning. Family at the bedside also adamant about changing providers as they are not happy with the current provider. 08/30/2021 Patient is seen today and hemoglobin low today at 6.4and will transfuse a unit of PRBC. Family refusing any further surgical treatment of wounds at this time as they feel patient is too weak. Patient awaiting transfer out of the ICU. Patient accepted at [facility] and will discuss further with about overall poor prognosis and possible hospice care. Social work following. Patient is afebrile and currently maintained on IV abx. IV steroids being titrated down. Patient denies chest pain or worsening shortness of breath. 08/31/2021 Patient is evaluated today and continues in the ICU. Patient is currently on room air and continued on breathing treatments. IV steroids transitioned to oral prednisone and continues on IV zosyn. Patient is afebrile. Hemoglobin improved to 8 after transfusion yesterday and no active bleeding noted. No plans for surgical intervention of the wounds at this time per family. Family undecided about hospice at this time. Overall poor prognosis. Patient denies chest pain or palpitations. Denies worsening shortness of breath. Patient is significantly weak. 09/01/2021 Patient was seen in follow-up this morning has been transferred out of the ICU currently stable. Patient being followed by infectious disease along with pu lmonary speedometer inspector and currently maintained on IV antibiotics in the form of Zosyn. No plans for surgical intervention of the multiple wounds and recommending continuing with local wound care. Discussed extensively with the about treatment plan and discharge planning moving forward and patient would like him to go to [facility] [place] and case management following an patient may likely need authorization which will be started with possible discharge in 24 hours. Patient is continued on breathing inhalational treatments and has been transitioned to oral steroids. Patient continues with poor oral intake and needs encouragement eating and assistance with eating as patient continues to be extremely weak. Hemoglobin is improved after transfusion and currently stable at this time. Cardiology also following and maintained on oral amiodarone and Lopressor and will continue. Patient's overall prognosis is extremely poor and guarded and this was also discussed with over the phone. Patient is afebrile denies any worsening shortness of breath or chest pains. Patient currently maintained on room air at 95% oxygen saturation. 09/02/2021 Patient is evaluated today and continues to have extreme weakness and extensive medical debility and is continued on IV zosyn with ID following. at the bedside today and is aware of working on discharge planning to ECF. Social work following and [facility] has now declined the patient and working on possible [facility]. Patient has extensive wounds of the lower extremities, upper right thigh, and chronic back and recommend to continue with encouraging oral intake and wound care. has cancelled possible debridement surgery as she feels he is not stable at this time to withstand and survive a surgical intervention. Discussed palliative care and hospice as well and she is not ready for that and would like for patient to go to rehab. Patient is afebrile and denies chest pain or shortness of breath. Overall prognosis is extremely guarded and poor. Encourage aspiration precautions. Review of systems: Constitutional: reports of fatigue, no fever, or chills Cardiovascular: No reports of chest pain or palpitations Respiratory: No reports of worsening shortness of breath or cough GI: No reports of nausea, vomiting, or diarrhea : No reports of dysuria or retention Neurovascular: reports of weakness All medications have been reviewed Active Medications Acetaminophen (Acetaminophen Tab 325 Mg Tab) 650 mg PO Q4H PRN PRN Reason: Pain or Fever > 100.5 Albuterol/Ipratropium (Ipratropium-Albuterol 3 Ml Neb) 3 ml INHALATION RT-Q4H PRN PRN Reason: Shortness Of Breath Or Wheezing Albuterol/Ipratropium (Ipratropium-Albuterol 3 Ml Neb) 3 ml INHALATION RT-QID [facility] Last Admin: 09/02/21 20:17 Dose: 3 ml Amiodarone HCl (Amiodarone 200 Mg Tab) 200 mg PO BID [facility] Last Admin: 09/02/21 20:37 Dose: 200 mg Amlodipine Besylate (Amlodipine 10 Mg Tab) 10 mg PO DAILY [facility] Last Admin: 09/02/21 08:52 Dose: 10 mg Budesonide (Budesonide 1 Mg/2 Ml Nebu) 1 mg INHALATION RT-BID [facility] Last Admin: 09/02/21 20:17 Dose: 1 mg Famotidine (Famotidine 20 Mg Tab) 20 mg PO DAILY [facility] Last Admin: 09/02/21 08:53 Dose: 20 mg Formoterol Fumarate (Formoterol Fumarate 20 Mcg/2 Ml Nebu) 20 mcg INHALATION RT-BID [facility] Last Admin: 09/02/21 20:17 Dose: 20 mcg Hydromorphone HCl (Hydromorphone 1 Mg/Ml 1 Ml Syringe) 1 mg IVP Q2HR PRN PRN Reason: Pain Last Admin: 09/02/21 20:38 Dose: 1 mg Insulin Aspart (Insulin Aspart (Novolog) 100 Unit/Ml Vial) 0 unit SQ Q6HR [facility]; Protocol Last Admin: 09/02/21 17:34 Dose: Not Given Levothyroxine Sodium (Levothyroxine 50 Mcg Tab) 50 mcg PO DAILY@0500 [facility] Last Admin: 09/02/21 06:17 Dose: 50 mcg Losartan Potassium (Losartan 50 Mg Tab) 50 mg PO HS [facility] Last Admin: 09/02/21 20:37 Dose: 50 mg Metoprolol Tartrate (Metoprolol Tartrate 50 Mg Tab) 100 mg PO BID [facility] Last Admin: 09/02/21 20:38 Dose: 100 mg Miscellaneous Information (Magnesium Replacement Protocol 1 Each Misc) 1 each MISCELLANE DAILY PRN; Protocol PRN Reason: Per Protocol Miscellaneous Information (Potassium Replacement Protocol 1 Each Misc) 1 each MISCELLANE DAILY PRN; Protocol PRN Reason: Per Protocol Naloxone HCl (Naloxone 0.4 Mg/Ml 1 Ml Vial) 0.2 mg IV Q2M PRN PRN Reason: Opioid Reversal Prednisone (Prednisone 20 Mg Tab) 40 mg PO DAILY [facility] Last Admin: 09/02/21 08:53 Dose: 40 mg Physical Exam: GENERAL: The patient is alert and continues on room air today. Patient is awake. Thin built, ill-appearing, cachectic, emaciated HEENT: Pupils are round and equally reacting to light. EOMI. No scleral icterus. No conjunctival pallor. Normocephalic, atraumatic. No pharyngeal erythema. No thyromegaly. CARDIOVASCULAR: S1 and S2 present. No murmurs, rubs, or gallops. PULMONARY: Decreased air entry bilaterally with scattered diffuse rhonchi ABDOMEN: Soft, nontender, nondistended, normoactive bowel sounds. No palpable organomegaly. MUSCULOSKELETAL: No joint swelling or deformity. EXTREMITIES: No cyanosis, clubbing, or pedal edema. Multiple bilateral leg ulcers including both heels and right upper thigh with oozing and drainage, right lateral willis with large scabbing noted over entire surface of the wound. continued purulent drainage noted from the willis. No evidence of overt surrounding cellulitis NEUROLOGICAL: Gross neurological examination did not reveal any focal deficits. Diffusely weak SKIN: No rashes. no petechiae. Assessment: Acute hypoxic respiratory failure requiring intubation and mechanical ventilation secondary to End stage COPD, extubated on 08/28/2021 Sepsis, present on admission most likely secondary to multiple pressure ulcers that appear infected COPD with exacerbation Chronic anemia Hypovolemic hyponatremia, improved Aflutter with RVR, currently rate controlled Moderate calorie malnutrition with a BMI of 21.1 multiple leg wounds focal scar versus speculated nodule in the right upper lobe, will need outpatient PET scan History of hypertension Hyperlipidemia Dehydration Chronic altered mental status with some elements of acute related to metabolic encephalopathy. Possible dementia History of osteoarthritis Medical debility History of chronic nonpressure ulcer of the back DVT prophylaxis: Subcutaneous Lovenox GI Prophylaxis: Pepcid No code Plan: Recommend to continue on antibiotics and infectious disease is following. Continue with local wound care and will continue with Zosyn for now and transition to oral Augmentin on discharge no plans for surgical intervention of debridements of the wounds as family has cancelled Patient was recently extubated on 08/28/2021 and currently maintained on room air and doing relatively well. Transitioned to oral prednisone and continued breathing treatments Patient awaiting accepting ECF possible [facility] as [facility] has declined. Will need insurance auth. Recommend follow-up with am labs and replace electrolytes per protocol Pulmonary and cardiology following Overall Prognosis is extremely poor and guarded CODE STATUS no code per , discussed palliative and hospice and is declining this at this time. Discussed overall extremely poor prognosis with her at length and answered her questions and concerns to the best of our ability. Working on accepting ECF. The impression and plan of care has been dictated by Lucy Reyes, Nurse Practitioner as directed. Dr. Navi MD I have performed a history and examination and MDM of this patient, discussed the same with the dictator, and agree with the dictator's assessment and plan as written ,documented as a scribe. Based on total visit time, I have performed more than 50% of the visit. Objective - Vital Signs Vital signs: Vital Signs Temp 98.5 F 09/02/21 07:31 Pulse 88 09/02/21 11:31 Resp 16 09/02/21 07:31 BP 146/71 09/02/21 07:31 Pulse Ox 94 L 09/02/21 08:28 FiO2 35 08/30/21 07:11 Intake & Output 09/01/21 09/02/21 09/02/21 18:59 06:59 18:59 Intake Total 742 450 Output Total 1500 550 Balance -758 -100 Weight 61.2 kg Intake: IV 150 450 Dextrose 5% in Water 1, 150 450 000 ml @ 75 mls/hr IV . [id number] [facility] Rx#:[id number] Oral 592 Output: Urine 1500 550 Uretheral ([place]os) 550 Other: Voiding Method Indwelling Catheter Indwelling Catheter Indwelling Catheter ABP, PAP, CO, CI - Last Documented Arterial Blood Pressure 174/34 - Labs CBC & Chem 7: 08/31/21 08:00 09/01/21 06:56 Labs: Abnormal Lab Results - Last 24 Hours (Table) 09/01/21 09/01/21 09/02/21 Range/Units 18:24 23:37 08:08 POC Glucose (mg/dL) 176 H 123 H (70-110) mg/dL C-Reactive Protein 1.40 H (0.00-0.80) mg/dL 09/02/21 Range/Units 11:30 POC Glucose (mg/dL) 120 H (70-110) mg/dL C-Reactive Protein (0.00-0.80) mg/dL
[2021-09-03 00:11] LABS: Glucose,Whole Blood 158 mg/dL (70-110)
[2021-09-03] MEDS: LEVOTHYROXINE 50 MCG TAB PO SCH (05:00)
[2021-09-03] MEDS: HYDROmorphone 1 MG/ML 1 ML SYRINGE IVP PRN ×2 (05:50→08:25)
[2021-09-03 05:57] LABS: Glucose,Whole Blood 88 mg/dL (70-110)
[2021-09-03] MEDS: INSULIN ASPART (NovoLOG) 100 UNIT/ML VIAL SQ SCH ×3 (05:57→15:37)
[2021-09-03] MEDS: FORMOTEROL FUMARATE 20 MCG/2 ML NEBU INHALATION SCH ×2 (07:48→20:08)
[2021-09-03] MEDS: BUDESONIDE 1 MG/2 ML NEBU INHALATION SCH ×2 (07:48→20:08)
[2021-09-03] MEDS: IPRATROPIUM-ALBUTEROL 3 ML NEB INHALATION SCH ×4 (07:49→20:09)
[2021-09-03] MEDS: predniSONE 20 MG TAB PO SCH (08:25)
[2021-09-03] MEDS: FAMOTIDINE 20 MG TAB PO SCH (08:26)
[2021-09-03] MEDS: METOPROLOL TARTRATE 50 MG TAB PO SCH ×2 (08:26→21:37)
[2021-09-03] MEDS: amLODIPine 10 MG TAB PO SCH (08:26)
[2021-09-03] MEDS: AMIODARONE 200 MG TAB PO SCH ×2 (08:26→21:37)
[2021-09-03 08:40] LABS: Anisocytosis Moderate; Basophils % (A) 0 %; Eosinophils # (A) 0.1 k/uL (0-0.7); Eosinophils % (A) 1 %; HCT 22.1 % (39.0-53.0); HGB 7.1 gm/dL (13.0-17.5); Hypochromasia Slight; Lymphocytes # (A) 0.8 k/uL (1.0-4.8); Lymphocytes % (A) 6 %; MCH 30.4 pg (25.0-35.0); MCHC 31.9 g/dL (31.0-37.0); MCV 95.2 fL (80.0-100.0); Macrocytosis Slight; Mean Platelet Volume 11.3; Monocytes # (A) 0.3 k/uL (0-1.0); Monocytes % (A) 3 %; Neutrophils # (A) 10.7 k/uL (1.3-7.7); Neutrophils % (A) 89 %; Platelet Count 114 k/uL (150-450); RBC 2.32 m/uL (4.30-5.90); RDW 21.4 % (11.5-15.5)
[2021-09-03 08:51] LABS: African American GFR (CKD) >90 (>60 ml/min/1.73 sqM); Anion Gap 0 mmol/L; Blood Urea Nitrogen 17 mg/dL (9-20); Calcium 7.1 mg/dL (8.4-10.2); Carbon Dioxide 26 mmol/L (22-30); Chloride 109 mmol/L (98-107); Glucose 69 mg/dL (74-99); Non-African American GFR(CKD) >90 (>60 ml/min/1.73 sqM); Sodium 135 mmol/L (137-145)
[2021-09-03 09:14] LABS: Potassium 5.4 mmol/L (3.5-5.1)
[2021-09-03 11:22] LABS: Glucose,Whole Blood 79 mg/dL (70-110)
--- NOTE | 2021-09-03 12:46 | P.PN ---
Subjective Progress Note Date: 09/03/21 Principal diagnosis: Possible aspiration pneumonia and multiple pressure ulcers She is a 71-year-old male with a past medical history significant for end-stage COPD admitted to the hospital with weakness and some shortness of breath patient did have worsening of his respiratory status requiring intubation and admission to the ICU, patient also have multiple pressure ulcers. Patient subsequently has been successfully extubated on 08/27/2021 On today's evaluation 09/03/2021, the patient is afebrile, patient is breathing comfortably on room air, patient not have any good historian and did not answer any questions no vomiting or diarrhea or any changes reported by the nursing staff Objective - Vital Signs Vital signs: Vital Signs Temp 98.8 F 09/03/21 07:53 Pulse 74 09/03/21 11:22 Resp 18 09/03/21 11:22 BP 157/77 09/03/21 07:53 Pulse Ox 96 09/03/21 07:53 FiO2 35 08/30/21 07:11 Intake & Output 09/02/21 09/03/21 09/03/21 18:59 06:59 18:59 Intake Total 300 1600 Output Total 200 650 Balance 100 950 Weight 60.9 kg Intake: Oral 300 1600 Output: Urine 200 650 Uretheral (Llanos) 200 Other: Voiding Method Indwelling Catheter Indwelling Catheter ABP, PAP, CO, CI - Last Documented Arterial Blood Pressure 174/34 - Exam GENERAL DESCRIPTION: An elderly male lying in bed in no distress RESPIRATORY SYSTEM: Unlabored breathing , decreased breath sounds at bases HEART: S1 S2 regular rate and rhythm , ABDOMEN: Soft , no tenderness EXTREMITIES: Right posterior thigh is currently covered with a complex no drainage on the dressing - Labs CBC & Chem 7: 09/03/21 08:03 09/03/21 08:03 Labs: Abnormal Lab Results - Last 24 Hours (Table) 09/02/21 09/02/21 09/03/21 Range/Units 11:30 17:00 00:09 WBC (3.8-10.6) k/uL RBC (4.30-5.90) m/uL Hgb (13.0-17.5) gm/dL Hct (39.0-53.0) % RDW (11.5-15.5) % Plt Count (150-450) k/uL Neutrophils # (1.3-7.7) k/uL Lymphocytes # (1.0-4.8) k/uL Sodium (137-145) mmol/L Potassium (3.5-5.1) mmol/L Chloride (98-107) mmol/L Glucose (74-99) mg/dL POC Glucose (mg/dL) 120 H 162 H 158 H (70-110) mg/dL Calcium (8.4-10.2) mg/dL 09/03/21 09/03/21 Range/Units 08:03 08:03 WBC 12.0 H (3.8-10.6) k/uL RBC 2.32 L (4.30-5.90) m/uL Hgb 7.1 L (13.0-17.5) gm/dL Hct 22.1 L (39.0-53.0) % RDW 21.4 H (11.5-15.5) % Plt Count 114 L (150-450) k/uL Neutrophils # 10.7 H (1.3-7.7) k/uL Lymphocytes # 0.8 L (1.0-4.8) k/uL Sodium 135 L (137-145) mmol/L Potassium 5.4 H (3.5-5.1) mmol/L Chloride 109 H (98-107) mmol/L Glucose 69 L (74-99) mg/dL POC Glucose (mg/dL) (70-110) mg/dL Calcium 7.1 L (8.4-10.2) mg/dL Assessment and Plan (1) Pneumonia Current Visit: Yes Status: Acute Code(s): J18.9 - PNEUMONIA, UNSPECIFIED ORGANISM SNOMED Code(s): 630680035 Plan: 1patient presented to hospital with increasing shortness of breath could be related to her underlying cardiac etiology, patient subsequently did have worsening of his respiratory status requiring intubation and concern for possible aspiration. 2sputum culture grew Corynebacterium more likely colonization 3patient to continue local wound care with Medihoney to the left thigh wound with a slough rest of the wound with a dry necrotic area to keep them dry and of the pressure. 4- right posterior thigh bruising area has been marked and continue with the current protective dressing 5patient underlying pneumonia has been adequately treated and received more than 2 weeks of antibiotic procalcitonin was normal, Zosyn was discontinued yesterday and will continue to monitor the patient closely off antibiotic Time with Patient: Less than 30
[2021-09-03] MEDS ORDERED: HYDROmorphone 0.5 MG/0.5 ML SYRINGE IM PRN (13:45)
--- NOTE | 2021-09-03 13:55 | P.PN ---
Subjective Progress Note Date: 09/03/21 This is a pleasant 71 years old male with past medical history of COPD, Hyperlipidemia, Hypertension, Osteoarthritis , Metabolic Encaphalopathy, Acute kidney failure with tubular necrosis, Cachexia, Chronic non-pressure ulcer of back, Rhabdomylosis was sent from [facility] with increased weakness and lethargy over the last 2-3days Patient is poor historian but as per staff with . his he has been a snf for the last 1-2 months and his been confused. pt looks cachectic and very frail, he is oriented to time ,place and person , but has no denture, his voice is muffled because of that he is been complaining from dyspnea and chest pain which is mild in the middle nonradiating and associated with very little cough. He says his shortness of breath was worse over the last 1 day and a half. Denies any abdominal pain or vomiting or diarrhea but he has low appetite. He denies any choking or swallow problem but he has no denture so we'll check for swallow evaluation Patient looks tachypneic with bilateral chest with some limited air entry but no ricardo wheezing. Patient states that he quit smoking about 10 years ago, used to smoke for more than 10 years. No alcohol or illicit drugs. He has multiple pressure ulcers he has one large pressure ulcers on the right leg laterally with drying scab Or any dressing . Also has multiple pressure ulcers with black eschar on both heels and left foot. The surrounding skin looks intact with no redness or swelling. On admission he was slightly tachypneic on 20, afebrile and heart rate was 84 and blood pressure 141/64, however overnight his blood pressure dropped with systolic 90s to 100, currently his blood pressure 104/68, also became tachycardic with heart rate 04/17/2049. He was saturating 9920% on 2-3 L oxygen via nasal cannula. He is mildly hypothermic at 97.2 His WBC is elevated at 17.7. Hemoglobin is 10.0. Platelet count 258. INR 0.9. BUN is 32 and creatinine 0.9. Troponin is 0.02 and less than 0.01. Glucose was on the low side 57 on admission and currently is 201. Urinalysis showed 1+ protein with no evidence of infection. Patient started on steroids and got a breathing treatment, IV fluids and started on amiodarone drips and Lovenox in the emergency room. D-dimer was elevated, therefore CTA of the chest was done which showed negative for pulmonary embolism, emphysematous changes with small pleural effusion. Also there is focal scattered versus speculated nodule in the right upper lobe we ordered stat CT of the brain and CT of the chest to rule out pulmonary embolism given his hypotension, tachycardia and tachypnea with elevated d-dimer. Also with mild hypoxia suspected. However patient confused per staff when he came in and could not be started on heparin drip before we rule out intracranial bleed before CT of the brain is also ordered with CT of the chest. Both tests came back negative 08/19/2021 Patient today during morning rounds found obtunded and responsive and unarousable with impending respiratory failure and he was transferred to the intensive care unit he got intubated and placed on mechanical ventilation with pulmonary/critical care team following closely and held with and management. His WBCs 11.6, hemoglobin 8.6, creatinine 1.4. chest x-ray sewn bilateral worsening infiltrates especially in the lower zones mood versus worsening infection His continued counseling atrial 60 mg, antibiotic form of Zosyn and amiodarone drip for developing A. fib and RVR. High-dose tenderness on hold 08/20/2021 Patient remains in the ICU intubated and sedated, he still tachypneic with respiratory rate of 28, his PEEP of 8.0 today. His hemoglobin is 7.1, creatinine 1.4. Remains on IV Solu-Medrol and Zosyn. Also is on amiodarone drip, and normal saline at 100 mL per hour. He still has bilateral leg ulceration with dried surface. 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 He is still on high PEEP relatively at 8 and FiO2 of 35%. He is tachypneic and tachycardic WBC 6.6, hemoglobin 7.5, creatinine improvement 1.2, chest x-ray showing no change. He remains on Zosyn, IV Solu-Medrol and normal saline 08/22/2021 Patient continues to be in the MICU with multiple medical consultations following. Pulmonary intensivists following and patient is maintained on IV steroids, duonebs, and IV antibiotics and will continue. Patient continues on vent with an FI02 of 30% and peep being weaned somewhat from 8 to 6 today. Chest xray is similar to previous day with no real improvement. Patient is afebrile. Patient overall prognosis is extremely poor and guarded and code status to be addressed. Cardiology following as well and have increased the metoprolol and continues on amiodarone. 08/23/2021 Patient continues to be in the ICU on mechanical vent with an FI02 of 30% and pe ep is 6. Patient on sedation with holidays being conducted. Not tolerating and no plan for extubation at this time. General surgery consulted for right willis ulcer that has a large scab over it and apparently now some purulent drainage is noted. Possible debridement of the wound and recommend obtaining cultures. Patient is afebrile and sodium is elevated and IV fluids being transitioned to D5 in Water. Recommend repeat labs. 08/24/2021 Patient continues to be closely monitored in the medical ICU and maintained on mechanical vent. Chest x-ray shows persistent patchy opacification the left mid and lower lung zone slightly more prominent today with no progressive right pulmonary consolidation and grossly stable pleural effusions and also incidental finding of NG tube that needs further advancing into the stomach. Patient is continued on enteral nutrition via NG. Patient remains on mechanical vent with an FiO2 of 30% and PEEP is 6. Patient also continues on D5 in water and sodium is 142 today with a potassium of 3.9, creatinine is 0.87. Hemoglobin is 7.4 and WBC is 14.8 which is on an upward trend. Patient is afebrile. Patient continues on breathing inhalational treatments along with IV steroids 60 every 6 and IV Zosyn and is sedated with propofol at this time. Patient is tentatively scheduled for debridement of the right willis today. 08/25/2021 Patient is seen in follow-up in the ICU with multiple medical consultations following. Patient continues on mechanical vent with an FiO2 of 30% and PEEP is 6. Patient is currently off sedation and on Precedex low-dose. Attempting CPAP trials per pulmonary. Contemplating possible tracheostomy family continues to wish for the patient to remain full code. Patient is high risk for remaining on mechanical ventilation given his extensive comorbidities. Per nursing staff patient was not following commands although on exam right are asked patient to nod head yes or no is having any pain and patient nodded had no. Will then look around the room and stare off at the coats. Patient is extremely cachectic and ill-appearing and lethargic. Pulmonary following along with general surgery and plan is for possible debridement of that right willis in the a.m. Chest x-ray shows less prominent infiltration the left lower lung zone and unchanged remainder of the lungs. Patient also continues on breathing inhalational treat ments along with IV steroids and IV Zosyn. Recommend electrolyte replacement per protocol and were within normal limits today. WBC mildly elevated and trending upward at 15.2, hemoglobin is 7.8. Patient is afebrile. 08/26/2021 Patient continues in the ICU and currently off pressor support. Patient is on low dose precedex and assessing for weaning parameters and currently maintained on cpap assist mode with 5/5 settings. When on vent Fio2 is 30% with a peep of 6. Patient family has made the patient no code and has cancelled the debridement of the right willis wound with general surgery. Possible extubation in the near future and no plans for reintubation. Patient WBC trending down and proca lcitonin is 0.07 and maintained on IV abx with ID following. Sputum likely colonization. Overall prognosis is poor and guarded. Patient is afebrile 08/27/2021 Patient seen on follow-up in the ICU, he is currently intubated on mechanical ventilation, pressure support of 5, PEEP of 6 ABG from today shows pH 7.37, pCO2 50, pO2 170. He is currently on Precedex, but is alert opening his eyes, however today shows his hypernatremia[place] [address] receiving IV hydration with D5 water. Currently hemodynamically stable, no fevers. Continues antimicrobial therapy of Zosyn as coronary bacterium growing in the sputum is continued on systemic steroids. Stable creatinine 0.87, blood sugars been running in the 200s he is on sliding scale coverage. 08/28/2021 Patient is extubated patient has diminished breath sounds but not wheezing at this time. 08/29/2021 Patient is seen in follow-up this morning awaiting transfer out of ICU as patient has been downgraded to [facility] and awaiting a bed. Patient was recently extubated and currently maintained on 2 L via nasal cannula. Patient is eating and tolerating an oral intake remains poor but is fair. Family at the bedside reports that they would like [facility] when stabilized and discharged and social work following and working on accepting facility. Gen. surgery on standby in the event family changes their mind about debridement of the wounds. WBCs elevated at 15.2 and patient remains on IV antibiotics. Sodium elevated at 144 and will continue D5 in water and follow-up with repeat labs and also recommended chest x-ray in the morning. Patient also continues with DuoNeb treatments along with IV steroids which are being decreased by pulmonary. Will follow-up on labs tomorrow and discuss with pulmonary about discharge planning. Family at the bedside also adamant about changing providers as they are not happy with the current provider. 08/30/2021 Patient is seen today and hemoglobin low today at 6.4and will transfuse a unit of PRBC. Family refusing any further surgical treatment of wounds at this time as they feel patient is too weak. Patient awaiting transfer out of the ICU. Patient accepted at [facility] and will discuss further with about overall poor prognosis and possible hospice care. Social work following. Patient is afebrile and currently maintained on IV abx. IV steroids being titrated down. Patient denies chest pain or worsening shortness of breath. 08/31/2021 Patient is evaluated today and continues in the ICU. Patient is currently on room air and continued on breathing treatments. IV steroids transitioned to oral prednisone and continues on IV zosyn. Patient is afebrile. Hemoglobin improved to 8 after transfusion yesterday and no active bleeding noted. No plans for surgical intervention of the wounds at this time per family. Family undecided about hospice at this time. Overall poor prognosis. Patient denies chest pain or palpitations. Denies worsening shortness of breath. Patient is significantly weak. 09/01/2021 Patient was seen in follow-up this morning has been transferred out of the ICU currently stable. 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 No plans for surgical intervention of the multiple wounds and recommending continuing with local wound care. Discussed extensively with the about treatment plan and discharge planning moving forward and patient would like him to go to [facility] on the [place] and case management following an patient may likely need authorization which will be started with possible discharge in 24 hours. Patient is continued on breathing inhalational treatments and has been transitioned to oral steroids. Patient continues with poor oral intake and needs encouragement eating and assistance with eating as patient continues to be extremely weak. Hemoglobin is improved after transfusion and currently stable at this time. Cardiology also following and maintained on oral amiodarone and Lopressor and will continue. Patient's overall prognosis is extremely poor and guarded and this was also discussed with over the phone. Patient is afebrile denies any worsening shortness of breath or chest pains. Patient currently maintained on room air at 95% oxygen saturation. 09/02/2021 Patient is evaluated today and continues to have extreme weakness and extensive medical debility and is continued on IV zosyn with ID following. at the bedside today and is aware of working on discharge planning to [facility]. Social work following and [facility] has now declined the patient and working on possible [facility]. Patient has extensive wounds of the lower extremities, upper right thigh, and chronic back and recommend to continue with encouraging oral intake and wound care. has cancelled possible debridement surgery as she feels he is not stable at this time to withstand and survive a surgical intervention. Discussed palliative care and hospice as well and she is not ready for that and would like for patient to go to rehab. Patient is afebrile and denies chest pain or shortness of breath. Overall prognosis is extremely guarded and poor. Encourage aspiration precautions. 09/03/2021 Patient evaluated today on the medical floor during dressing change. Hematoma to right inner thigh per staff is felt to be larger in size and patient is being followed by general surgery. Recommend for evaluation by general surgery who are following along regarding right lower leg pressure injury. Family at this time is refusing debridement for the lower leg pressure injury. He is also being followed by infectious disease and will continue on IV Zosyn. Patient has been receiving dilaudid for pain management recommending decreasing and begin oral pain management. Labs today are showing a white count of 12.0, hgb 7.1, platelet count of 114, sodium 135, potassium 5.4, chloride 109, CO2 26, BUN 17, creatinine is 0.70. His blood glucose is 69. Will recommend holding losartan as patient is hyperkalemic and will give a dose of lokelma today. Repeat labs tomorrow and also continue with accucheck monitoring ACHS. Plan is for discharge to rehab when stable. Review of systems: Constitutional: reports of fatigue, no fever, or chills Cardiovascular: No reports of chest pain or palpitations Respiratory: No reports of worsening shortness of breath or cough GI: No reports of nausea, vomiting, or diarrhea : No reports of dysuria or retention Neurovascular: reports of weakness All medications have been reviewed Physical Exam: GENERAL: The patient is alert and continues on room air today. Patient is awake. Thin built, ill-appearing, cachectic, emaciated HEENT: Pupils are round and equally reacting to light. EOMI. No scleral icterus. No conjunctival pallor. Normocephalic, atraumatic. No pharyngeal erythema. No thyromegaly. CARDIOVASCULAR: S1 and S2 present. No murmurs, rubs, or gallops. PULMONARY: Decreased air entry bilaterally with scattered diffuse rhonchi ABDOMEN: Soft, nontender, nondistended, normoactive bowel sounds. No palpable organomegaly. MUSCULOSKELETAL: No joint swelling or deformity. EXTREMITIES: No cyanosis, clubbing, or pedal edema. Multiple bilateral leg ulcers including both heels and right upper thigh with oozing and drainage, right lateral willis with large scabbing noted over entire surface of the wound. continued purulent drainage noted from the willis. No evidence of overt surrounding cellulitis NEUROLOGICAL: Gross neurological examination did not reveal any focal deficits. Diffusely weak SKIN: No rashes. no petechiae. Assessment: Acute hypoxic respiratory failure requiring intubation and mechanical ventilation secondary to End stage COPD, extubated on 08/28/2021 Sepsis, present on admission most likely secondary to multiple pressure ulcers that appear infected COPD with exacerbation Chronic anemia Hypovolemic hyponatremia, improved Aflutter with RVR, currently rate controlled Moderate calorie malnutrition with a BMI of 21.1 multiple leg wounds focal scar versus speculated nodule in the right upper lobe, will need outpatient PET scan History of hypertension Hyperlipidemia Dehydration Chronic altered mental status with some elements of acute related to metabolic encephalopathy. Possible dementia History of osteoarthritis Medical debility History of chronic nonpressure ulcer of the back DVT prophylaxis: Subcutaneous Lovenox GI Prophylaxis: Pepcid No code Plan: Recommend to continue on antibiotics and infectious disease is following. C ontinue with local wound care and will continue with Zosyn for now and transition to oral Augmentin on discharge no plans for surgical intervention of debridements of the wounds as family has cancelled Patient was recently extubated on 08/28/2021 and currently maintained on room air and doing relatively well. Transitioned to oral prednisone and continued breathing treatments Patient awaiting accepting ECF possible [facility] as [facility] has declined. Will need insurance auth. Recommend follow-up with am labs and replace electrolytes per protocol. Patient has received a dose of lokelma today for potassium of 5.4. Losartan has been placed on hold and will need blood pressure monitoring. Pulmonary and cardiology following Overall Prognosis is extremely poor and guarded CODE STATUS no code per , discussed palliative and hospice and is declining this at this time. Discussed overall extremely poor prognosis with her at length and answered her questions and concerns to the best of our ability. Working on accepting ECF. Objective - Vital Signs Vital signs: Vital Signs Temp 98.8 F 09/03/21 07:53 Pulse 77 09/03/21 11:31 Resp 18 09/03/21 11:31 BP 157/77 09/03/21 07:53 Pulse Ox 96 09/03/21 07:53 FiO2 35 08/30/21 07:11 Intake & Output 09/02/21 09/03/21 09/03/21 18:59 06:59 18:59 Intake Total 300 1600 Output Total 200 650 Balance 100 950 Weight 60.9 kg Intake: Oral 300 1600 Output: Urine 200 650 Uretheral (Llanos) 200 Other: Voiding Method Indwelling Catheter Indwelling Catheter ABP, PAP, CO, CI - Last Documented Arterial Blood Pressure 174/34 - Labs CBC & Chem 7: 09/03/21 08:03 09/03/21 08:03 Labs: Abnormal Lab Results - Last 24 Hours (Table) 09/02/21 09/03/21 09/03/21 Range/Units 17:00 00:09 08:03 WBC 12.0 H (3.8-10.6) k/uL RBC 2.32 L (4.30-5.90) m/uL Hgb 7.1 L (13.0-17.5) gm/dL Hct 22.1 L (39.0-53.0) % RDW 21.4 H (11.5-15.5) % Plt Count 114 L (150-450) k/uL Neutrophils # 10.7 H (1.3-7.7) k/uL Lymphocytes # 0.8 L (1.0-4.8) k/uL Sodium (137-145) mmol/L Potassium (3.5-5.1) mmol/L Chloride (98-107) mmol/L Glucose (74-99) mg/dL POC Glucose (mg/dL) 162 H 158 H (70-110) mg/dL Calcium (8.4-10.2) mg/dL 09/03/21 Range/Units 08:03 WBC (3.8-10.6) k/uL RBC (4.30-5.90) m/uL Hgb (13.0-17.5) gm/dL Hct (39.0-53.0) % RDW (11.5-15.5) % Plt Count (150-450) k/uL Neutrophils # (1.3-7.7) k/uL Lymphocytes # (1.0-4.8) k/uL Sodium 135 L (137-145) mmol/L Potassium 5.4 H (3.5-5.1) mmol/L Chloride 109 H (98-107) mmol/L Glucose 69 L (74-99) mg/dL POC Glucose (mg/dL) (70-110) mg/dL Calcium 7.1 L (8.4-10.2) mg/dL Assessment and Plan Time with Patient: Less than 30
[2021-09-03] MEDS: HYDROmorphone 0.5 MG/0.5 ML SYRINGE IVP PRN (14:19)
[2021-09-03] MEDS ORDERED: SODIUM ZIRCONIUM CYCLOSILICATE 10 GM PACKET PO ONE (14:30)
--- NOTE | 2021-09-03 15:47 | P.PN ---
Subjective Principal diagnosis: CHIEF COMPLAINT: Pressure ulcers HISTORY OF PRESENT ILLNESS: The patient is a 71-year-old male with pressure ulcer of the sacrum including skin lesions along the upper thighs and heels. Patient's is at bedside. Per request of medicine team including nursing, reassessment for wounds were requested. Present at bedside. requests no additional surgical intervention at this time. Patient also agreed. Patient tolerated 100% of his meal including beef and pasta. Also, patient being managed by infectious disease with wound care. ROS: No reports of nausea and vomiting. No fevers or chills. No new chest pain. No productive sputum PHYSICAL EXAM: VITAL SIGNS: Reviewed CONSTITUTIONAL: Well developed and in no acute distress. EYES: Conjuctivae without sclera icterus. Extraocular movements grossly intact. HEAD, EARS, NOSE, THROAT: Moist buccal mucosa. Head is atraumatic, normocephalic . Hears conversational speech. No nasal drainage. RESPIRATORY: Non-labored respirations and equal bilateral excursions. Left subclavian line present without [place] infection. CARDIOVASCULAR: Palpable 2+ radial pulses. ABDOMEN: Nontender. MUSCULOSKELETAL: No clubbing. Images of pressure ulcer along the sacrum, lesions along the upper mid thigh also reviewed. SKIN: Dry skin turgor. NEUROLOGIC: Cranial nerves II through XII grossly intact. No focal or lateralizing signs. PSYCH: Alert and oriented to person, place. CLINICAL LABS: Reviewed. WBC count 15.4-12.0. ASSESSMENT: 1. Chronic unstageable sacral ulcer 2. Chronic unstageable heel ulcer 3. Chronic unstageable proximal thigh ulcer 4. Aspiration pneumonia with sepsis PLAN: 1. Patient was seen and evaluated with his nurse Alejandra at bedside. also at bedside. Per patient and family request, no surgical intervention requested. 2. Recommend increased nutrition to high protein diet for wound healing. Objective - Vital Signs Vital signs: Vital Signs Temp 98.8 F 09/03/21 13:25 Pulse 68 09/03/21 13:25 Resp 21 09/03/21 13:25 BP 141/62 09/03/21 13:25 Pulse Ox 96 09/03/21 13:25 FiO2 35 08/30/21 07:11 Intake & Output 09/02/21 09/03/21 09/03/21 18:59 06:59 18:59 Intake Total 300 1600 180 Output Total 915 929 4107 Balance 100 950 -970 Weight 60.9 kg Intake: Oral 300 1600 180 Output: Urine 967 252 6281 Uretheral (Llanos) 200 Other: Voiding Method Indwelling Catheter Indwelling Catheter ABP, PAP, CO, CI - Last Documented Arterial Blood Pressure 174/34 - Labs CBC & Chem 7: 09/03/21 08:03 09/03/21 08:03 Labs: Abnormal Lab Results - Last 24 Hours (Table) 09/02/21 09/03/21 09/03/21 Range/Units 17:00 00:09 08:03 WBC 12.0 H (3.8-10.6) k/uL RBC 2.32 L (4.30-5.90) m/uL Hgb 7.1 L (13.0-17.5) gm/dL Hct 22.1 L (39.0-53.0) % RDW 21.4 H (11.5-15.5) % Plt Count 114 L (150-450) k/uL Neutrophils # 10.7 H (1.3-7.7) k/uL Lymphocytes # 0.8 L (1.0-4.8) k/uL Sodium (137-145) mmol/L Potassium (3.5-5.1) mmol/L Chloride (98-107) mmol/L Glucose (74-99) mg/dL POC Glucose (mg/dL) 162 H 158 H (70-110) mg/dL Calcium (8.4-10.2) mg/dL 09/03/21 Range/Units 08:03 WBC (3.8-10.6) k/uL RBC (4.30-5.90) m/uL Hgb (13.0-17.5) gm/dL Hct (39.0-53.0) % RDW (11.5-15.5) % Plt Count (150-450) k/uL Neutrophils # (1.3-7.7) k/uL Lymphocytes # (1.0-4.8) k/uL Sodium 135 L (137-145) mmol/L Potassium 5.4 H (3.5-5.1) mmol/L Chloride 109 H (98-107) mmol/L Glucose 69 L (74-99) mg/dL POC Glucose (mg/dL) (70-110) mg/dL Calcium 7.1 L (8.4-10.2) mg/dL
[2021-09-04] MEDS: LEVOTHYROXINE 50 MCG TAB PO SCH (05:43)
[2021-09-04 06:35] LABS: African American GFR (CKD) >90 (>60 ml/min/1.73 sqM); Anion Gap 1 mmol/L; Blood Urea Nitrogen 21 mg/dL (9-20); Calcium 7.6 mg/dL (8.4-10.2); Carbon Dioxide 27 mmol/L (22-30); Chloride 109 mmol/L (98-107); Glucose 89 mg/dL (74-99); Magnesium 1.7 mg/dL (1.6-2.3); Non-African American GFR(CKD) 88 (>60 ml/min/1.73 sqM); Sodium 137 mmol/L (137-145)
[2021-09-04] MEDS: FORMOTEROL FUMARATE 20 MCG/2 ML NEBU INHALATION SCH ×2 (07:14→19:39)
[2021-09-04] MEDS: BUDESONIDE 1 MG/2 ML NEBU INHALATION SCH ×2 (07:14→19:39)
[2021-09-04] MEDS: IPRATROPIUM-ALBUTEROL 3 ML NEB INHALATION SCH ×4 (07:14→19:39)
[2021-09-04] MEDS: FAMOTIDINE 20 MG TAB PO SCH (09:26)
[2021-09-04] MEDS: METOPROLOL TARTRATE 50 MG TAB PO SCH ×2 (09:26→21:45)
[2021-09-04] MEDS: AMIODARONE 200 MG TAB PO SCH ×2 (09:26→21:45)
[2021-09-04] MEDS: predniSONE 20 MG TAB PO SCH (09:26)
[2021-09-04] MEDS: amLODIPine 10 MG TAB PO SCH (09:26)
[2021-09-04 09:34] LABS: Anisocytosis Moderate; Basophils % (A) 0 %; Eosinophils # (A) 0.1 k/uL (0-0.7); Eosinophils % (A) 1 %; HCT 27.4 % (39.0-53.0); Hypochromasia Slight; Lymphocytes # (A) 0.7 k/uL (1.0-4.8); Lymphocytes % (A) 5 %; MCH 31.3 pg (25.0-35.0); MCHC 32.6 g/dL (31.0-37.0); MCV 96.1 fL (80.0-100.0); Macrocytosis Slight; Mean Platelet Volume 10.1; Monocytes # (A) 0.2 k/uL (0-1.0); Monocytes % (A) 2 %; Neutrophils # (A) 12.4 k/uL (1.3-7.7); Neutrophils % (A) 93 %; RBC 2.85 m/uL (4.30-5.90); RDW 20.8 % (11.5-15.5); WBC 13.4 k/uL (3.8-10.6)
[2021-09-04 09:38] LABS: HGB 8.9 gm/dL (13.0-17.5); Platelet Count 184 k/uL (150-450)
[2021-09-04 11:36] LABS: Glucose,Whole Blood 107 mg/dL (70-110)
--- NOTE | 2021-09-04 12:50 | P.PN ---
Subjective This is a pleasant 71 years old male with past medical history of COPD, Hyperlipidemia, Hypertension, Osteoarthritis , Metabolic Encaphalopathy, Acute kidney failure with tubular necrosis, Cachexia, Chronic non-pressure ulcer of back, Rhabdomylosis was sent from [facility] with increased weakness and lethargy over the last 2-3days Patient is poor historian but as per staff with his he has been a usp for the last 1-2 months and his been confused. pt looks cachectic and very frail, he is oriented to time ,place and person , but has no denture, his voice is muffled because of that he is been complaining from dyspnea and chest pain which is mild in the middle nonradiating and associated with very little cough. He says his shortness of breath was worse over the last 1 day and a half. Denies any abdominal pain or vomiting or diarrhea but he has low appetite. He denies any choking or swallow problem but he has no denture so we'll check for swallow evaluation Patient looks tachypneic with bilateral chest with some limited air entry but no ricardo wheezing. Patient states that he quit smoking about 10 years ago, used to smoke for more than 10 years. No alcohol or illicit drugs. He has multiple pressure ulcers he has one large pressure ulcers on the right leg laterally with drying scab Or any dressing . Also has multiple pressure ulcers with black eschar on both heels and left foot. The surrounding skin looks intact with no redness or swelling. On admission he was slightly tachypneic on 20, afebrile and heart rate was 84 and blood pressure 141/64, however overnight his blood pressure dropped with sys tolic 90s to 100, currently his blood pressure 104/68, also became tachycardic with heart rate 04/17/2049. He was saturating 9920% on 2-3 L oxygen via nasal cannula. He is mildly hypothermic at 97.2 His WBC is elevated at 17.7. Hemoglobin is 10.0. Platelet count 258. INR 0.9. BUN is 32 and creatinine 0.9. Troponin is 0.02 and less than 0.01. Glucose was on the low side 57 on admission and currently is 201. Urinalysis showed 1+ protein with no evidence of infection. Patient started on steroids and got a breathing treatment, IV fluids and started on amiodarone drips and Lovenox in the emergency room. D-dimer was elevated, therefore CTA of the chest was done which showed negative for pulmonary embolism, emphysematous changes with small pleural effusion. Also there is focal scattered versus speculated nodule in the right upper lobe we ordered stat CT of the brain and CT of the chest to rule out pulmonary embolism given his hypotension, tachycardia and tachypnea with elevated d-dimer. Also with mild hypoxia suspected. However patient confused per staff when he came in and could not be started on heparin drip before we rule out intracranial bleed before CT of the brain is also ordered with CT of the chest. Both tests came back negative 08/19/2021 Patient today during morning rounds found obtunded and responsive and unarousable with impending respiratory failure and he was transferred to the intensive care unit he got intubated and placed on mechanical ventilation with pulmonary/critical care team following closely and held with and management. His WBCs 11.6, hemoglobin 8.6, creatinine 1.4. chest x-ray sewn bilateral worsening infiltrates especially in the lower zones mood versus worsening infection His continued counseling atrial 60 mg, antibiotic form of Zosyn and amiodarone drip for developing A. fib and RVR. High-dose tenderness on hold 08/20/2021 Patient remains in the ICU intubated and sedated, he still tachypneic with respiratory rate of 28, his PEEP of 8.0 today. His hemoglobin is 7.1, creatinine 1.4. Remains on IV Solu-Medrol and Zosyn. Also is on amiodarone drip, and normal saline at 100 mL per hour. He still has bilateral leg ulceration with dried surface. 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 He is still on high PEEP relatively at 8 and FiO2 of 35%. He is tachypneic and tachycardic WBC 6.6, hemoglobin 7.5, creatinine improvement 1.2, chest x-ray showing no change. He remains on Zosyn, IV Solu-Medrol and normal saline I'm resume the care of the patient today 09/04/2021 Is currently status post extubation and was moved to the general medical floor on the room 463. He is lying in bed, mildly tachypneic, no dyspnea or respirat ory difficulty. No coughing or chest pain. No shortness of breath while at rest. He was saturating 97% on room air, breathing rate at 16-18. WBC 13.4, hemoglobin 8.9, potassium 4. Glucose controlled. Continue the prednisone 40 mg Losartan was held for hyperkalemia. Continue with Norvasc, metoprolol and amiodarone. Patient is DO NOT RESUSCITATE. Patient conference to me he does not want any surgical intervention, also he confirms to me he does not want hospice for now. Objective - Vital Signs Vital signs: Vital Signs Temp 99.0 F 09/04/21 07:47 Pulse 79 09/04/21 07:47 Resp 18 09/04/21 07:47 BP 150/84 09/04/21 07:47 Pulse Ox 97 09/04/21 07:47 FiO2 35 08/30/21 07:11 Intake & Output 09/03/21 09/04/21 09/04/21 18:59 06:59 18:59 Intake Total 180 Output Total 1150 900 Balance -970 -900 Intake: Oral 180 Output: Urine 1150 900 Other: Voiding Method Indwelling Catheter ABP, PAP, CO, CI - Last Documented Arterial Blood Pressure 174/34 - Exam GENERAL: The patient is awake and alert, feels generally weak. Thin build ENT: Pupils are round and equally reacting to light. EOMI. No scleral icterus. No conjunctival pallor. Normocephalic, atraumatic. No pharyngeal erythema. No thyromegaly. CARDIOVASCULAR: S1 and S2 present. No murmurs, rubs, or gallops. -PULMONARY: Chest is clear to auscmild wheezing. No crepitation Abdomen : Soft, nontender, nondistended, normoactive bowel sounds. No palpable organomegaly. MUSCULOSKELETAL: No joint swelling or deformity. -EXTREMITIES: No cyanosis, clubbing, or pedal edema. Multiple bilateral leg ulcers including both heels and right lateral leg. No evidence of overt s urrounding cellulitis NEUROLOGICAL: Gross neurological examination did not reveal any focal deficits. SKIN: No rashes. no petechiae. - Labs CBC & Chem 7: 09/04/21 08:58 09/04/21 05:59 Labs: Abnormal Lab Results - Last 24 Hours (Table) 09/04/21 Range/Units 05:59 Chloride 109 H (98-107) mmol/L BUN 21 H (9-20) mg/dL Calcium 7.6 L (8.4-10.2) mg/dL Assessment and Plan Assessment: Acute hypoxic respiratory failure status post extubation and S/B mechanical ventilation. Patient currently breathing easily COPD with exacerbation Multiple pressure ulcers with suspected infection Moderate to severe calories and protein malnutrition multiple leg wounds focal scar versus speculated nodule in the right upper lobe History of hypertension, currently he is hypotensive Hyperlipidemia Dehydration Chronic altered mental status with some elements of acute related to metabolic encephalopathy. Possible dementia History of osteoarthritis History of chronic nonpressure ulcer of the back Plan: This is a pleasant 71 years old male who presents with COPD and possible infected pressure ulcers and hypotension Continue with steroids currently on prednisone 40 mg Finished his course of IV antibiotics. Continue with amiodarone per manager web application Check thyroid function, hemoglobin A1c and potential started the nursery. cardiology consult evaluated the patient Labs and medication were reviewed.. Continue same treatment. Continue with symptomatic treatment. Resume home medication. Monitor lytes and vitals. DVT and GI prophylaxis. Further recommendations depends on the clinical course of the patient DVT prophylaxis:no anticoagulation for DVT prophylaxis as his hemoglobin dropped during this hospitalization down to 6.4 on GI Prophylaxis: Pepcid PT/OT: Pending Prognosis is guarded CODE STATUS DO NOT RESUSCITATE
[2021-09-05 00:12] LABS: Glucose,Whole Blood 211 mg/dL (70-110)
[2021-09-05] MEDS: HYDROmorphone 0.5 MG/0.5 ML SYRINGE IVP PRN (01:50)
[2021-09-05] MEDS: LEVOTHYROXINE 50 MCG TAB PO SCH (05:23)
[2021-09-05 06:08] LABS: Glucose,Whole Blood 131 mg/dL (70-110)
[2021-09-05] MEDS: FORMOTEROL FUMARATE 20 MCG/2 ML NEBU INHALATION SCH ×2 (07:26→19:59)
[2021-09-05] MEDS: IPRATROPIUM-ALBUTEROL 3 ML NEB INHALATION SCH ×4 (07:26→19:45)
[2021-09-05] MEDS: BUDESONIDE 1 MG/2 ML NEBU INHALATION SCH ×2 (07:27→19:44)
--- NOTE | 2021-09-05 07:34 | P.PN ---
Subjective Progress Note Date: 09/04/21 Principal diagnosis: Possible aspiration pneumonia and multiple pressure ulcers She is a 71-year-old male with a past medical history significant for end-stage COPD admitted to the hospital with weakness and some shortness of breath patient did have worsening of his respiratory status requiring intubation and admission to the ICU, patient also have multiple pressure ulcers. Patient subsequently has been successfully extubated on 08/27/2021 On today's evaluation 09/04/2021, the patient remains to be afebrile, patient is breathing comfortably on room air, patient did not answer any questions no vomiting or diarrhea or any changes reported by the nursing staff Objective - Vital Signs Vital signs: Vital Signs Temp 98.8 F 09/04/21 15:23 Pulse 52 L 09/04/21 15:23 Resp 20 09/04/21 15:23 BP 177/86 09/04/21 15:23 Pulse Ox 96 09/04/21 15:23 FiO2 35 08/30/21 07:11 Intake & Output 09/03/21 09/04/21 09/04/21 18:59 06:59 18:59 Intake Total 180 Output Total 1150 900 Balance -970 -900 Intake: Oral 180 Output: Urine 1150 900 Other: Voiding Method Indwelling Catheter Indwelling Catheter ABP, PAP, CO, CI - Last Documented Arterial Blood Pressure 174/34 - Exam GENERAL DESCRIPTION: An elderly male lying in bed in no distress RESPIRATORY SYSTEM: Unlabored breathing , decreased breath sounds at bases HEART: S1 S2 regular rate and rhythm , ABDOMEN: Soft , no tenderness EXTREMITIES: Right posterior thigh is currently covered with a complex no drainage on the dressing - Labs CBC & Chem 7: 09/04/21 08:58 09/04/21 05:59 Labs: Abnormal Lab Results - Last 24 Hours (Table) 09/04/21 09/04/21 Range/Units 05:59 08:58 WBC 13.4 H (3.8-10.6) k/uL RBC 2.85 L (4.30-5.90) m/uL Hgb 8.9 L D (13.0-17.5) gm/dL Hct 27.4 L (39.0-53.0) % RDW 20.8 H (11.5-15.5) % Neutrophils # 12.4 H (1.3-7.7) k/uL Lymphocytes # 0.7 L (1.0-4.8) k/uL Chloride 109 H (98-107) mmol/L BUN 21 H (9-20) mg/dL Calcium 7.6 L (8.4-10.2) mg/dL Assessment and Plan (1) Pneumonia Current Visit: Yes Status: Acute Code(s): J18.9 - PNEUMONIA, UNSPECIFIED ORGANISM SNOMED Code(s): 038632447 Plan: 1patient presented to hospital with increasing shortness of breath could be related to her underlying cardiac etiology, patient subsequently did have worsening of his respiratory status requiring intubation and concern for possible aspiration. 2sputum culture grew Corynebacterium more likely colonization 3patient to continue local wound care with Medihoney to the left thigh wound with a slough rest of the wound with a dry necrotic area to keep them dry and of the pressure. 4- right posterior thigh bruising area has been marked and continue with the current protective dressing 5patient underlying pneumonia has been adequately treated and received more than 2 weeks of antibiotic procalcitonin was normal, Zosyn was discontinued 6elevated white count could be related to the central line patient have is to be discontinued discussed with nursing staff and white count will monitor closely Time with Patient: Less than 30
[2021-09-05 09:01] LABS: African American GFR (CKD) >90 (>60 ml/min/1.73 sqM); Anion Gap 2 mmol/L; Blood Urea Nitrogen 18 mg/dL (9-20); Calcium 7.4 mg/dL (8.4-10.2); Carbon Dioxide 27 mmol/L (22-30); Chloride 109 mmol/L (98-107); Glucose 108 mg/dL (74-99); Magnesium 1.7 mg/dL (1.6-2.3); Non-African American GFR(CKD) >90 (>60 ml/min/1.73 sqM); Sodium 138 mmol/L (137-145)
[2021-09-05 09:06] LABS: Anisocytosis Moderate; Basophils % (A) 0 %; Eosinophils # (A) 0.1 k/uL (0-0.7); Eosinophils % (A) 1 %; HCT 27.6 % (39.0-53.0); Hypochromasia Slight; Lymphocytes # (A) 0.4 k/uL (1.0-4.8); Lymphocytes % (A) 3 %; MCHC 32.6 g/dL (31.0-37.0); Macrocytosis Slight; Mean Platelet Volume 11.1; Monocytes # (A) 0.4 k/uL (0-1.0); Monocytes % (A) 3 %; Neutrophils # (A) 10.6 k/uL (1.3-7.7); Neutrophils % (A) 93 %; Platelet Count 158 k/uL (150-450); RDW 21.1 % (11.5-15.5); WBC 11.5 k/uL (3.8-10.6)
[2021-09-05] MEDS: predniSONE 20 MG TAB PO SCH (10:05)
[2021-09-05] MEDS: amLODIPine 10 MG TAB PO SCH (10:05)
[2021-09-05] MEDS: FAMOTIDINE 20 MG TAB PO SCH (10:05)
[2021-09-05] MEDS: METOPROLOL TARTRATE 50 MG TAB PO SCH ×2 (10:05→20:11)
[2021-09-05] MEDS: AMIODARONE 200 MG TAB PO SCH ×2 (10:05→20:12)
[2021-09-05 11:16] LABS: Glucose,Whole Blood 109 mg/dL (70-110)
--- NOTE | 2021-09-05 11:54 | P.PN ---
Subjective This is a pleasant 71 years old male with past medical history of COPD, Hyperlipidemia, Hypertension, Osteoarthritis , Metabolic Encaphalopathy, Acute kidney failure with tubular necrosis, Cachexia, Chronic non-pressure ulcer of back, Rhabdomylosis was sent from [facility] with increased weakness and lethargy over the last 2-3days Patient is poor historian but as per staff with his he has been a long term for the last 1-2 months and his been confused. pt looks cachectic and very frail, he is oriented to time ,place and person , but has no denture, his voice is muffled because of that he is been complaining from dyspnea and chest pain which is mild in the middle nonradiating and associated with very little cough. He says his shortness of breath was worse over the last 1 day and a half. Denies any abdominal pain or vomiting or diarrhea but he has low appetite. He denies any choking or swallow problem but he has no denture so we'll check for swallow evaluation Patient looks tachypneic with bilateral chest with some limited air entry but no ricardo wheezing. Patient states that he quit smoking about 10 years ago, used to smoke for more than 10 years. No alcohol or illicit drugs. He has multiple pressure ulcers he has one large pressure ulcers on the right leg laterally with drying scab Or any dressing . Also has multiple pressure ulcers with black eschar on both heels and left foot. The surrounding skin looks intact with no redness or swelling. On admission he was slightly tachypneic on 20, afebrile and heart rate was 84 and blood pressure 141/64, however overnight his blood pressure dropped with sys tolic 90s to 100, currently his blood pressure 104/68, also became tachycardic with heart rate 04/17/2049. He was saturating 9920% on 2-3 L oxygen via nasal cannula. He is mildly hypothermic at 97.2 His WBC is elevated at 17.7. Hemoglobin is 10.0. Platelet count 258. INR 0.9. BUN is 32 and creatinine 0.9. Troponin is 0.02 and less than 0.01. Glucose was on the low side 57 on admission and currently is 201. Urinalysis showed 1+ protein with no evidence of infection. Patient started on steroids and got a breathing treatment, IV fluids and started on amiodarone drips and Lovenox in the emergency room. D-dimer was elevated, therefore CTA of the chest was done which showed negative for pulmonary embolism, emphysematous changes with small pleural effusion. Also there is focal scattered versus speculated nodule in the right upper lobe we ordered stat CT of the brain and CT of the chest to rule out pulmonary embolism given his hypotension, tachycardia and tachypnea with elevated d-dimer. Also with mild hypoxia suspected. However patient confused per staff when he came in and could not be started on heparin drip before we rule out intracranial bleed before CT of the brain is also ordered with CT of the chest. Both tests came back negative 08/19/2021 Patient today during morning rounds found obtunded and responsive and unarousable with impending respiratory failure and he was transferred to the intensive care unit he got intubated and placed on mechanical ventilation with pulmonary/critical care team following closely and held with and management. His WBCs 11.6, hemoglobin 8.6, creatinine 1.4. chest x-ray sewn bilateral worsening infiltrates especially in the lower zones mood versus worsening infection His continued counseling atrial 60 mg, antibiotic form of Zosyn and amiodarone drip for developing A. fib and RVR. High-dose tenderness on hold 08/20/2021 Patient remains in the ICU intubated and sedated, he still tachypneic with respiratory rate of 28, his PEEP of 8.0 today. His hemoglobin is 7.1, creatinine 1.4. Remains on IV Solu-Medrol and Zosyn. Also is on amiodarone drip, and normal saline at 100 mL per hour. He still has bilateral leg ulceration with dried surface. 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 He is still on high PEEP relatively at 8 and FiO2 of 35%. He is tachypneic and tachycardic WBC 6.6, hemoglobin 7.5, creatinine improvement 1.2, chest x-ray showing no change. He remains on Zosyn, IV Solu-Medrol and normal saline I'm resume the care of the patient today 09/04/2021 Is currently status post extubation and was moved to the general medical floor on the room 463. He is lying in bed, mildly tachypneic, no dyspnea or respirat ory difficulty. No coughing or chest pain. No shortness of breath while at rest. He was saturating 97% on room air, breathing rate at 16-18. WBC 13.4, hemoglobin 8.9, potassium 4. Glucose controlled. Continue the prednisone 40 mg Losartan was held for hyperkalemia. Continue with Norvasc, metoprolol and amiodarone. Patient is DO NOT RESUSCITATE. Patient conference to me he does not want any surgical intervention, also he confirms to me he does not want hospice for now. 09/05/2021 Patient is awake and alert, breathing easily, mildly tachypneic. Tolerates diet well. No new complaints. No chest pain, dyspnea or abdominal pain. No weakness or numbness. He is hemodynamically stable. Labs checked today including CBC and BMP on they were stable. Remains on a prednisone 40 mg. Possible discharge in remains stable Objective - Vital Signs Vital signs: Vital Signs Temp 98.2 F 09/05/21 07:25 Pulse 82 09/05/21 07:27 Resp 16 09/05/21 07:27 BP 159/65 09/05/21 07:25 Pulse Ox 95 09/05/21 07:27 FiO2 35 08/30/21 07:11 Intake & Output 09/04/21 09/05/21 09/05/21 18:59 06:59 18:59 Output Total 950 400 Balance -950 -400 Output: Urine 950 400 Other: Voiding Method Indwelling Catheter Indwelling Catheter Indwelling Catheter # Bowel Movements 1 1 ABP, PAP, CO, CI - Last Documented Arterial Blood Pressure 174/34 - Exam GENERAL: The patient is awake and alert, feels generally weak. Thin build ENT: Pupils are round and equally reacting to light. EOMI. No scleral icterus. No conjunctival pallor. Normocephalic, atraumatic. No pharyngeal erythema. No thyromegaly. CARDIOVASCULAR: S1 and S2 present. No murmurs, rubs, or gallops. -PULMONARY: Chest is clear to auscmild wheezing. No crepitation Abdomen : Soft, nontender, nondistended, normoactive bowel sounds. No palpable organomegaly. MUSCULOSKELETAL: No joint swelling or deformity. -EXTREMITIES: No cyanosis, clubbing, or pedal edema. Multiple bilateral leg ulc ers including both heels and right lateral leg. No evidence of overt surrounding cellulitis NEUROLOGICAL: Gross neurological examination did not reveal any focal deficits. SKIN: No rashes. no petechiae. - Labs CBC & Chem 7: 09/05/21 08:16 09/05/21 08:16 Labs: Abnormal Lab Results - Last 24 Hours (Table) 09/05/21 09/05/21 09/05/21 Range/Units 00:09 06:06 08:16 WBC 11.5 H (3.8-10.6) k/uL RBC 2.90 L (4.30-5.90) m/uL Hgb 9.0 L (13.0-17.5) gm/dL Hct 27.6 L (39.0-53.0) % RDW 21.1 H (11.5-15.5) % Neutrophils # 10.6 H (1.3-7.7) k/uL Lymphocytes # 0.4 L (1.0-4.8) k/uL Chloride (98-107) mmol/L Glucose (74-99) mg/dL POC Glucose (mg/dL) 211 H 131 H (70-110) mg/dL Calcium (8.4-10.2) mg/dL 09/05/21 Range/Units 08:16 WBC (3.8-10.6) k/uL RBC (4.30-5.90) m/uL Hgb (13.0-17.5) gm/dL Hct (39.0-53.0) % RDW (11.5-15.5) % Neutrophils # (1.3-7.7) k/uL Lymphocytes # (1.0-4.8) k/uL Chloride 109 H (98-107) mmol/L Glucose 108 H (74-99) mg/dL POC Glucose (mg/dL) (70-110) mg/dL Calcium 7.4 L (8.4-10.2) mg/dL Assessment and Plan Assessment: Acute hypoxic respiratory failure status post extubation and S/B mechanical ventilation. Patient currently breathing easily COPD with exacerbation Multiple pressure ulcers with suspected infection Moderate to severe calories and protein malnutrition multiple leg wounds focal scar versus speculated nodule in the right upper lobe History of hypertension, currently he is hypotensive Hyperlipidemia Dehydration Chronic altered mental status with some elements of acute related to metabolic encephalopathy. Possible dementia History of osteoarthritis History of chronic nonpressure ulcer of the back Plan: This is a pleasant 71 years old male who presents with COPD and possible infected pressure ulcers and hypotension Continue with steroids currently on prednisone 40 mg Finished his course of IV antibiotics. Continue with amiodarone per barrow worker helper Check thyroid function, hemoglobin A1c and potential started the nursery. cardiology consult evaluated the patient Labs and medication were reviewed.. Continue same treatment. Continue with symptomatic treatment. Resume home medication. Monitor lytes and vitals. DVT and GI prophylaxis. Further recommendations depends on the clinical course of the patient DVT prophylaxis:no anticoagulation for DVT prophylaxis as his hemoglobin dropped during this hospitalization down to 6.4 on GI Prophylaxis: Pepcid PT/OT: Pending Prognosis is guarded CODE STATUS DO NOT RESUSCITATE
--- NOTE | 2021-09-05 13:23 | P.PN ---
Subjective Progress Note Date: 09/05/21 CHIEF COMPLAINT: Right leg wound HISTORY OF PRESENT ILLNESS: Patient is on regular medical floor. Lying in bed comfortably. Surgical service is following in regards to right leg pressure ulcer. Family has declined debridement. Patient awaiting placement. Patient seen and examined with Dr. corbin EXAM: VITAL SIGNS: Reviewed. ABDOMEN: Soft. Nondistended. Extremities right lower leg pressure ulceration with large scab ASSESSMENT: 1. Right lower leg pressure ulcer 2. Chronic unstageable sacral ulcer 3. Chronic unstageable heel ulcer PLAN: -No surgical intervention planned per family's request. -Continue supportive care Physician Executive Meeting Manager note has been reviewed by physician. Signing provider agrees with the documented findings, assessment, and plan of care. Objective - Vital Signs Vital signs: Vital Signs Temp 98.2 F 09/05/21 07:25 Pulse 70 09/05/21 11:20 Resp 16 09/05/21 11:20 BP 159/65 09/05/21 07:25 Pulse Ox 95 09/05/21 07:27 FiO2 35 08/30/21 07:11 Intake & Output 09/04/21 09/05/21 09/05/21 18:59 06:59 18:59 Output Total 950 400 Balance -950 -400 Output: Urine 950 400 Other: Voiding Method Indwelling Catheter Indwelling Catheter Indwelling Catheter # Bowel Movements 1 1 ABP, PAP, CO, CI - Last Documented Arterial Blood Pressure 174/34 - Labs CBC & Chem 7: 09/05/21 08:16 09/05/21 08:16 Labs: Abnormal Lab Results - Last 24 Hours (Table) 09/05/21 09/05/21 09/05/21 Range/Units 00:09 06:06 08:16 WBC 11.5 H (3.8-10.6) k/uL RBC 2.90 L (4.30-5.90) m/uL Hgb 9.0 L (13.0-17.5) gm/dL Hct 27.6 L (39.0-53.0) % RDW 21.1 H (11.5-15.5) % Neutrophils # 10.6 H (1.3-7.7) k/uL Lymphocytes # 0.4 L (1.0-4.8) k/uL Chloride (98-107) mmol/L Glucose (74-99) mg/dL POC Glucose (mg/dL) 211 H 131 H (70-110) mg/dL Calcium (8.4-10.2) mg/dL 09/05/21 Range/Units 08:16 WBC (3.8-10.6) k/uL RBC (4.30-5.90) m/uL Hgb (13.0-17.5) gm/dL Hct (39.0-53.0) % RDW (11.5-15.5) % Neutrophils # (1.3-7.7) k/uL Lymphocytes # (1.0-4.8) k/uL Chloride 109 H (98-107) mmol/L Glucose 108 H (74-99) mg/dL POC Glucose (mg/dL) (70-110) mg/dL Calcium 7.4 L (8.4-10.2) mg/dL
[2021-09-05 16:33] LABS: Glucose,Whole Blood 147 mg/dL (70-110)
[2021-09-06] MEDS: LEVOTHYROXINE 50 MCG TAB PO SCH (05:29)
[2021-09-06 06:19] LABS: Glucose,Whole Blood 110 mg/dL (70-110)
[2021-09-06] MEDS: BUDESONIDE 1 MG/2 ML NEBU INHALATION SCH ×2 (07:16→20:39)
[2021-09-06] MEDS: FORMOTEROL FUMARATE 20 MCG/2 ML NEBU INHALATION SCH ×2 (07:16→20:39)
[2021-09-06] MEDS: IPRATROPIUM-ALBUTEROL 3 ML NEB INHALATION SCH ×4 (07:16→20:39)
--- NOTE | 2021-09-06 08:11 | P.PN ---
Subjective Progress Note Date: 09/05/21 Principal diagnosis: Possible aspiration pneumonia and multiple pressure ulcers She is a 71-year-old male with a past medical history significant for end-stage COPD admitted to the hospital with weakness and some shortness of breath patient did have worsening of his respiratory status requiring intubation and admission to the ICU, patient also have multiple pressure ulcers. Patient subsequently has been successfully extubated on 08/27/2021 On today's evaluation 09/05/2021, the patient continues to be afebrile, patient is breathing comfortably on room air, patient denies any chest pain or shortness of breath he did have some cough but not bringing up any sputum no abdominal pain or diarrhea Objective - Vital Signs Vital signs: Vital Signs Temp 98.2 F 09/05/21 07:25 Pulse 82 09/05/21 07:27 Resp 16 09/05/21 07:27 BP 159/65 09/05/21 07:25 Pulse Ox 95 09/05/21 07:27 FiO2 35 08/30/21 07:11 Intake & Output 09/04/21 09/05/21 09/05/21 18:59 06:59 18:59 Output Total 950 400 Balance -950 -400 Output: Urine 950 400 Other: Voiding Method Indwelling Catheter Indwelling Catheter Indwelling Catheter # Bowel Movements 1 1 ABP, PAP, CO, CI - Last Documented Arterial Blood Pressure 174/34 - Exam GENERAL DESCRIPTION: An elderly male lying in bed in no distress RESPIRATORY SYSTEM: Unlabored breathing , decreased breath sounds at bases HEART: S1 S2 regular rate and rhythm , ABDOMEN: Soft , no tenderness EXTREMITIES: Right posterior thigh is currently covered with a complex no drainage on the dressing - Labs CBC & Chem 7: 09/05/21 08:16 09/05/21 08:16 Labs: Abnormal Lab Results - Last 24 Hours (Table) 09/05/21 09/05/21 09/05/21 Range/Units 00:09 06:06 08:16 WBC 11.5 H (3.8-10.6) k/uL RBC 2.90 L (4.30-5.90) m/uL Hgb 9.0 L (13.0-17.5) gm/dL Hct 27.6 L (39.0-53.0) % RDW 21.1 H (11.5-15.5) % Neutrophils # 10.6 H (1.3-7.7) k/uL Lymphocytes # 0.4 L (1.0-4.8) k/uL Chloride (98-107) mmol/L Glucose (74-99) mg/dL POC Glucose (mg/dL) 211 H 131 H (70-110) mg/dL Calcium (8.4-10.2) mg/dL 09/05/21 Range/Units 08:16 WBC (3.8-10.6) k/uL RBC (4.30-5.90) m/uL Hgb (13.0-17.5) gm/dL Hct (39.0-53.0) % RDW (11.5-15.5) % Neutrophils # (1.3-7.7) k/uL Lymphocytes # (1.0-4.8) k/uL Chloride 109 H (98-107) mmol/L Glucose 108 H (74-99) mg/dL POC Glucose (mg/dL) (70-110) mg/dL Calcium 7.4 L (8.4-10.2) mg/dL Assessment and Plan (1) Pneumonia Current Visit: Yes Status: Acute Code(s): J18.9 - PNEUMONIA, UNSPECIFIED ORGANISM SNOMED Code(s): 093598716 Plan: 1patient presented to hospital with increasing shortness of breath could be related to her underlying cardiac etiology, patient subsequently did have worsening of his respiratory status requiring intubation and concern for possible aspiration. 2sputum culture grew Corynebacterium more likely colonization 3patient to continue local wound care with Medihoney to the left thigh wound with a slough rest of the wound with a dry necrotic area to keep them dry and of the pressure. 4- right posterior thigh bruising area has been marked and continue with the current protective dressing 5patient underlying pneumonia has been adequately treated and received more than 2 weeks of antibiotic procalcitonin was normal, patient is currently off antibiotics 6elevated white count could be related to the central line which was discontinued and the white count was down to 11.5 we'll continue to monitor closely Time with Patient: Less than 30
[2021-09-06] MEDS: AMIODARONE 200 MG TAB PO SCH ×2 (10:10→20:09)
[2021-09-06] MEDS: METOPROLOL TARTRATE 50 MG TAB PO SCH (10:10)
[2021-09-06] MEDS: FAMOTIDINE 20 MG TAB PO SCH (10:10)
[2021-09-06] MEDS: predniSONE 20 MG TAB PO SCH (10:10)
[2021-09-06] MEDS: amLODIPine 10 MG TAB PO SCH (10:10)
[2021-09-06] MEDS: HYDROmorphone 0.5 MG/0.5 ML SYRINGE IVP PRN (11:51)
[2021-09-06 12:05] LABS: Glucose,Whole Blood 78 mg/dL (70-110)
--- NOTE | 2021-09-06 13:16 | P.PN ---
Subjective Progress Note Date: 09/06/21 CHIEF COMPLAINT: Right leg wound HISTORY OF PRESENT ILLNESS: Patient is on regular medical floor. Lying in bed comfortably. Surgical service is following in regards to right leg pressure ulcer. Family has declined debridement. Afebrile. No new labs Patient seen and examined with Dr. corbin EXAM: VITAL SIGNS: Reviewed. ABDOMEN: Soft. Nondistended. Extremities right lower leg pressure ulceration with large scab ASSESSMENT: 1. Right lower leg pressure ulcer 2. Chronic unstageable sacral ulcer 3. Chronic unstageable heel ulcer PLAN: -No surgical intervention planned per family's request. -Continue supportive care Physician Casino Runner note has been reviewed by physician. Signing provider agrees with the documented findings, assessment, and plan of care. Objective - Vital Signs Vital signs: Vital Signs Temp 98.2 F 09/06/21 08:00 Pulse 66 09/06/21 11:27 Resp 16 09/06/21 11:27 BP 170/69 09/06/21 08:00 Pulse Ox 98 09/06/21 08:00 FiO2 35 08/30/21 07:11 Intake & Output 09/05/21 09/06/21 09/06/21 18:59 06:59 18:59 Output Total 500 350 Balance -500 -350 Output: Urine 500 350 Other: Voiding Method Indwelling Catheter # Bowel Movements 1 ABP, PAP, CO, CI - Last Documented Arterial Blood Pressure 174/34 - Labs CBC & Chem 7: 09/05/21 08:16 09/05/21 08:16 Labs: Abnormal Lab Results - Last 24 Hours (Table) 08/30/21 09/05/21 Range/Units 14:00 16:30 POC Glucose (mg/dL) 147 H (70-110) mg/dL Crossmatch See Detail
--- NOTE | 2021-09-06 15:27 | CDI ---
Documentation Clarification Form Date: 09/06/2021 02:59:36 PM From: Laxmi Schmitt RN CCDS Admit Date: 08/17/2021 04:55:00 PM Patient Name: Dani Jimenes Visit Number: [id number] Discharge Date: ATTENTION: The Clinical Documentation Specialists (CDI) and [facility] Coding Staff appreciate your assistance in clarifying documentation. Please respond to the clarification below the line at the bottom and electronically sign. The CDI & [facility] Coding staff will review the response and follow-up if needed. Please note: Queries are made part of the Legal Health Record. If you have any questions, please contact the author of this message via ITS. Dr. Mac E Sheet Sepsis POA is documented medicine progress notes , 09/01 09/03, but is not noted in subsequent documentation. Clarification is requested. History/Risk Factors: 71-year-old male presents to the ED via EMS from ECF with increased weakness and lethargy for two to three days. The patient is confused, looks cachectic and very frail. Medical history: COPD, HTN, Chronic pressure ulcers and acute kidney failure with ATN. Clinical Indicators: Admitting diagnosis: Multiple pressure ulcers with suspected infection. Possible severe sepsis. COPD with exacerbation. 08/18, H&P: Possible Severe sepsis 09/01, Medicine progress note: Sepsis, present on admission most likely secondary to pressure ulcers that appear infected. 08/17 VSS: B/P 141/64; HR 84; Temp 98.4 F Oral; RR 20; SpO2 97% 3L nasal cannula 08/17 LABS: Wbc 17.7, Neutrophils 16.4; Total protein 5.6; Albumin 2.9, D-dimer 0.97. 08/17 CXR: Small bilateral pleural effusions with minimal subsegmental atelectasis left base 08/19 Queries: Left heel pressure ulcer unstable, Right great toe pressure ulcer unstageable, Right willis pressure ulcer unstageable, Right heel pressure ulcer Unstageable: Full thickness tissue loss in which the base of the ulcer is covered by slough and or eschar in the wound bed. Bilateral buttock pressure ulcers stage 1. Treatment: 08/17 0.9NS 1L bolus, 08/17 Rocephin 1,000mg IVP x 1; 08/17 08/27 Omnicef 300mg PO BID. 08/18 08/19 Clindamycin 300mg IVPB Q8HR; 08/19 09/02 Piperacillin Sod/ Tazobactam Sod 3.375 IVPB Q8HR Please clarify if the Sepsis is: [ ] Sepsis POA confirmed, remains under treatment [ ] Sepsis POA confirmed, resolved [ ] Sepsis ruled out [ ] Other condition, please specify [ ] Unable to determine (Template Last Revised: May 2020) Sepsis POA confirmed, resolved. pt had leukocytosis and tachypnia as well as hypotension and tachycardia upon admission which is resolved MTDD
--- NOTE | 2021-09-06 15:46 | CDI ---
Documentation Clarification Form Date: 09/06/2021 03:28:34 PM From: Laxmi Schmitt RN CCDS Admit Date: 08/17/2021 04:55:00 PM Patient Name: Dani Jimenes Visit Number: [id number] Discharge Date: ATTENTION: The Clinical Documentation Specialists (CDI) and [facility] Coding Staff appreciate your assistance in clarifying documentation. Please respond to the clarification below the line at the bottom and electronically sign. The CDI & [facility] Coding staff will review the response and follow-up if needed. Please note: Queries are made part of the Legal Health Record. If you have any questions, please contact the author of this message via ITS. Dr. Mac E Sheet Conflicting documentation has been found in the medical record. As attending physician, please provide clarification. Moderate calorie malnutrition, medicine progress notes 08/30 09/03. Moderate to severe protein calorie malnutrition, medicine progress notes 09/04 - 09/06. History/Risk Factors: 71-year-old male presents to the ED via EMS from ECF with increased weakness and lethargy for two to three days. The patient is confused, looks cachectic and very frail. Medical history: COPD, HTN, Chronic pressure ulcers and acute kidney failure with ATN. Clinical Indicators: Admitting diagnosis: Multiple pressure ulcers with suspected infection. Possible severe sepsis. COPD with exacerbation and possible sepsis. 09/03, Medicine progress note: Patient is extremely cachectic and ill appearing and lethargic. 09/01,Nutritional Assessment: BMI 19 Hgt 5ft 6in Calculated ideal body wgt 64.5kg. Nutrition intake poor with Multiple pressure injuries. Estimated protein needs 77-129 grams a day. Estimated Energy national needs 1302 Kcal Estimated Fluid needs Fluid formula 1ml/Kcal Estimated fluid 1302. Patients intake is not adequate to meet nutritional needs. Treatment: Dietitian consult above. Ensure enlive TID , Tube feed at goal rate, Monitor supplement intake and oral intake. Monitor chemistry labs Please clarify which diagnosis is most appropriate: [ ] Moderate protein calorie malnutrition [ ] Moderate to severe protein calorie malnutrition [ ] Other (please specify) [ ] Unable to determine (Template Last Revised: May 2020) his BMI IS 21.7 Which is within the reference range MTDD
[2021-09-06 18:37] LABS: Glucose,Whole Blood 179 mg/dL (70-110)
--- NOTE | 2021-09-06 19:20 | P.PN ---
Subjective This is a pleasant 71 years old male with past medical history of COPD, Hyperlipidemia, Hypertension, Osteoarthritis , Metabolic Encaphalopathy, Acute kidney failure with tubular necrosis, Cachexia, Chronic non-pressure ulcer of back, Rhabdomylosis was sent from [facility] with increased weakness and lethargy over the last 2-3days Patient is poor historian but as per staff with his he has been a skilled nursing for the last 1-2 months and his been confused. pt looks cachectic and very frail, he is oriented to time ,place and person , but has no denture, his voice is muffled because of that he is been complaining from dyspnea and chest pain which is mild in the middle nonradiating and associated with very little cough. He says his shortness of breath was worse over the last 1 day and a half. Denies any abdominal pain or vomiting or diarrhea but he has low appetite. He denies any choking or swallow problem but he has no denture so we'll check for swallow evaluation Patient looks tachypneic with bilateral chest with some limited air entry but no ricardo wheezing. Patient states that he quit smoking about 10 years ago, used to smoke for more than 10 years. No alcohol or illicit drugs. He has multiple pressure ulcers he has one large pressure ulcers on the right leg laterally with drying scab Or any dressing . Also has multiple pressure ulcers with black eschar on both heels and left foot. The surrounding skin looks intact with no redness or swelling. On admission he was slightly tachypneic on 20, afebrile and heart rate was 84 and blood pressure 141/64, however overnight his blood pressure dropped with sys tolic 90s to 100, currently his blood pressure 104/68, also became tachycardic with heart rate 04/17/2049. He was saturating 9920% on 2-3 L oxygen via nasal cannula. He is mildly hypothermic at 97.2 His WBC is elevated at 17.7. Hemoglobin is 10.0. Platelet count 258. INR 0.9. BUN is 32 and creatinine 0.9. Troponin is 0.02 and less than 0.01. Glucose was on the low side 57 on admission and currently is 201. Urinalysis showed 1+ protein with no evidence of infection. Patient started on steroids and got a breathing treatment, IV fluids and started on amiodarone drips and Lovenox in the emergency room. D-dimer was elevated, therefore CTA of the chest was done which showed negative for pulmonary embolism, emphysematous changes with small pleural effusion. Also there is focal scattered versus speculated nodule in the right upper lobe we ordered stat CT of the brain and CT of the chest to rule out pulmonary embolism given his hypotension, tachycardia and tachypnea with elevated d-dimer. Also with mild hypoxia suspected. However patient confused per staff when he came in and could not be started on heparin drip before we rule out intracranial bleed before CT of the brain is also ordered with CT of the chest. Both tests came back negative 08/19/2021 Patient today during morning rounds found obtunded and responsive and unarousable with impending respiratory failure and he was transferred to the intensive care unit he got intubated and placed on mechanical ventilation with pulmonary/critical care team following closely and held with and management. His WBCs 11.6, hemoglobin 8.6, creatinine 1.4. chest x-ray sewn bilateral worsening infiltrates especially in the lower zones mood versus worsening infection His continued counseling atrial 60 mg, antibiotic form of Zosyn and amiodarone drip for developing A. fib and RVR. High-dose tenderness on hold 08/20/2021 Patient remains in the ICU intubated and sedated, he still tachypneic with respiratory rate of 28, his PEEP of 8.0 today. His hemoglobin is 7.1, creatinine 1.4. Remains on IV Solu-Medrol and Zosyn. Also is on amiodarone drip, and normal saline at 100 mL per hour. He still has bilateral leg ulceration with dried surface. 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 He is still on high PEEP relatively at 8 and FiO2 of 35%. He is tachypneic and tachycardic WBC 6.6, hemoglobin 7.5, creatinine improvement 1.2, chest x-ray showing no change. He remains on Zosyn, IV Solu-Medrol and normal saline I'm resume the care of the patient today 09/04/2021 Is currently status post extubation and was moved to the general medical floor on the room 463. He is lying in bed, mildly tachypneic, no dyspnea or respirat ory difficulty. No coughing or chest pain. No shortness of breath while at rest. He was saturating 97% on room air, breathing rate at 16-18. WBC 13.4, hemoglobin 8.9, potassium 4. Glucose controlled. Continue the prednisone 40 mg Losartan was held for hyperkalemia. Continue with Norvasc, metoprolol and amiodarone. Patient is DO NOT RESUSCITATE. Patient conference to me he does not want any surgical intervention, also he confirms to me he does not want hospice for now. 09/05/2021 Patient is awake and alert, breathing easily, mildly tachypneic. Tolerates diet well. No new complaints. No chest pain, dyspnea or abdominal pain. No weakness or numbness. He is hemodynamically stable. Labs checked today including CBC and BMP on they were stable. Remains on a prednisone 40 mg. Possible discharge in remains stable 09/06/2021 patient remains clinically stable. He is awake and alert, he is so fragile and weak. Patient also noncompliant with recommendations to surgical debridement of his legs. Also palliative consult is recommended for the patient and he declined for now. Patient finish his course of antibiotic and keep monitoring. No fever. Leukocytosis improving. Patient has no overt signs of infection. Therefore antibiotics at this point felt to be more risk than benefit. Also he is on the prednisone which may contribute to his mild leukocytosis. Patient has good appetite and he tolerates diet. Discussed the case with social service liaison, patient is medically stable for discharge pending placement However patient is high-risk for infection, hospitalization and or other complication given his multiple medical problems and fragile condition. Hospice care is recommended for the patient and he declined for now but he wants to be DO NOT RESUSCITATE Objective - Vital Signs Vital signs: Vital Signs Temp 98.2 F 09/06/21 08:00 Pulse 71 09/06/21 08:00 Resp 16 09/06/21 08:00 BP 170/69 09/06/21 08:00 Pulse Ox 98 09/06/21 08:00 FiO2 35 08/30/21 07:11 Intake & Output 09/05/21 09/06/21 09/06/21 18:59 06:59 18:59 Output Total 500 350 Balance -500 -350 Output: Urine 500 350 Other: Voiding Method Indwelling Catheter # Bowel Movements 1 ABP, PAP, CO, CI - Last Documented Arterial Blood Pressure 174/34 - Exam GENERAL: The patient is awake and alert, feels generally weak. Thin build ENT: Pupils are round and equally reacting to light. EOMI. No scleral icterus. No conjunctival pallor. Normocephalic, atraumatic. No pharyngeal erythema. No thyromegaly. CARDIOVASCULAR: S1 and S2 present. No murmurs, rubs, or gallops. -PULMONARY: Chest is clear to auscmild wheezing. No crepitation Abdomen : Soft, nontender, nondistended, normoactive bowel sounds. No palpable organomegaly. MUSCULOSKELETAL: No joint swelling or deformity. -EXTREMITIES: No cyanosis, clubbing, or pedal edema. Multiple bilateral leg ulcers including both heels and right lateral leg. No evidence of overt surrounding cellulitis NEUROLOGICAL: Gross neurological examination did not reveal any focal deficits. SKIN: No rashes. no petechiae. - Labs CBC & Chem 7: 09/05/21 08:16 09/05/21 08:16 Labs: Abnormal Lab Results - Last 24 Hours (Table) 08/30/21 09/05/21 Range/Units 14:00 16:30 POC Glucose (mg/dL) 147 H (70-110) mg/dL Crossmatch See Detail Assessment and Plan Assessment: Acute hypoxic respiratory failure status post extubation and S/B mechanical ventilation. Patient currently breathing easily COPD with exacerbation Multiple pressure ulcers with suspected infection Moderate to severe calories and protein malnutrition multiple leg wounds focal scar versus speculated nodule in the right upper lobe History of hypertension, currently he is hypotensive Hyperlipidemia Dehydration Chronic altered mental status with some elements of acute related to metabolic encephalopathy. Possible dementia History of osteoarthritis History of chronic nonpressure ulcer of the back Plan: This is a pleasant 71 years old male who presents with COPD and possible infected pressure ulcers and hypotension Continue with steroids currently on prednisone 40 mg Finished his course of IV antibiotics. Continue with amiodarone per behavioral instructor Check thyroid function, hemoglobin A1c and potential started the nursery. cardiology consult evaluated the patient Labs and medication were reviewed.. Continue same treatment. Continue with symptomatic treatment. Resume home medication. Monitor lytes and vitals. DVT and GI prophylaxis. Further recommendations depends on the clinical course of the patient DVT prophylaxis:no anticoagulation for DVT prophylaxis as his hemoglobin dropped during this hospitalization down to 6.4 on GI Prophylaxis: Pepcid PT/OT: Needs rehab Prognosis is guarded CODE STATUS DO NOT RESUSCITATE Patient is medically stable for discharge pending placement
[2021-09-07 04:22] LABS: Glucose,Whole Blood 123 mg/dL (70-110)
[2021-09-07 04:22] LABS: Glucose,Whole Blood 105 mg/dL (70-110)
[2021-09-07] MEDS: LEVOTHYROXINE 50 MCG TAB PO SCH (05:25)
--- NOTE | 2021-09-07 07:09 | P.PN ---
Subjective Progress Note Date: 09/06/21 Principal diagnosis: Possible aspiration pneumonia and multiple pressure ulcers She is a 71-year-old male with a past medical history significant for end-stage COPD admitted to the hospital with weakness and some shortness of breath patient did have worsening of his respiratory status requiring intubation and admission to the ICU, patient also have multiple pressure ulcers. Patient subsequently has been successfully extubated on 08/27/2021 On today's evaluation 09/06/2021, the patient remains to be afebrile, patient is breathing comfortably on room air, patient denies any chest pain however is complaining of shortness of breath , the patient did have mild cough but not bringing up any sputum no abdominal pain or diarrhea Objective - Vital Signs Vital signs: Vital Signs Temp 98.2 F 09/06/21 08:00 Pulse 71 09/06/21 08:00 Resp 16 09/06/21 08:00 BP 170/69 09/06/21 08:00 Pulse Ox 98 09/06/21 08:00 FiO2 35 08/30/21 07:11 Intake & Output 09/05/21 09/06/21 09/06/21 18:59 06:59 18:59 Output Total 500 350 Balance -500 -350 Output: Urine 500 350 Other: Voiding Method Indwelling Catheter # Bowel Movements 1 ABP, PAP, CO, CI - Last Documented Arterial Blood Pressure 174/34 - Exam GENERAL DESCRIPTION: An elderly male lying in bed in no distress RESPIRATORY SYSTEM: Unlabored breathing , decreased breath sounds at bases HEART: S1 S2 regular rate and rhythm , ABDOMEN: Soft , no tenderness EXTREMITIES: Right posterior thigh is currently covered with a complex no drainage on the dressing - Labs CBC & Chem 7: 09/05/21 08:16 09/05/21 08:16 Labs: Abnormal Lab Results - Last 24 Hours (Table) 08/30/21 09/05/21 Range/Units 14:00 16:30 POC Glucose (mg/dL) 147 H (70-110) mg/dL Crossmatch See Detail Assessment and Plan (1) Pneumonia Current Visit: Yes Status: Acute Code(s): J18.9 - PNEUMONIA, UNSPECIFIED OR GANISM SNOMED Code(s): 249563584 Plan: 1patient presented to hospital with increasing shortness of breath could be related to her underlying cardiac etiology, patient subsequently did have worsening of his respiratory status requiring intubation and concern for possible aspiration. 2sputum culture grew Corynebacterium more likely colonization 3patient to continue local wound care with Medihoney to the left thigh wound with a slough rest of the wound with a dry necrotic area to keep them dry and of the pressure. 4- right posterior thigh bruising area has been marked and continue with the current protective dressing 5patient underlying pneumonia has been adequately treated and received more than 2 weeks of antibiotic procalcitonin was normal, patient is currently off antibiotics 6elevated white count could be related to the central line which was discontinued and the white count was down to 11.5 as of yesterday however no CBC has been done today we'll continue to monitor closely Time with Patient: Less than 30
[2021-09-07] MEDS: IPRATROPIUM-ALBUTEROL 3 ML NEB INHALATION SCH ×4 (07:36→21:03)
[2021-09-07] MEDS: FORMOTEROL FUMARATE 20 MCG/2 ML NEBU INHALATION SCH ×2 (07:36→21:03)
[2021-09-07] MEDS: BUDESONIDE 1 MG/2 ML NEBU INHALATION SCH ×2 (07:36→21:03)
[2021-09-07] MEDS: AMIODARONE 200 MG TAB PO SCH ×2 (08:56→20:30)
[2021-09-07] MEDS: FAMOTIDINE 20 MG TAB PO SCH (08:56)
[2021-09-07] MEDS: amLODIPine 10 MG TAB PO SCH (08:56)
[2021-09-07] MEDS: predniSONE 20 MG TAB PO SCH (08:56)
[2021-09-07] MEDS: METOPROLOL TARTRATE 50 MG TAB PO SCH ×2 (08:56→20:30)
[2021-09-07] MEDS ORDERED: DOCUSATE 100 MG CAP PO PRN (08:57)
--- NOTE | 2021-09-07 13:21 | P.DS ---
Providers Date of admission: 08/17/21 16:55 Attending physician: Kenny Acuna Consults: 08/17/21 17:36 Consult Physician Routine Consulting Provider: Rissa Escobar Consult Reason/Comments: SVT Do you want consulting provider notified?: Yes, Notify in am 08/18/21 06:57 Consult Physician Urgent Consulting Provider: Edmundo Orantes Consult Reason/Comments: copd Do you want consulting provider notified?: Yes 08/18/21 08:25 Consult Physician Urgent Consulting Provider: Wagner Medrano Consult Reason/Comments: leg wounds Do you want consulting provider notified?: Yes 08/23/21 10:05 Consult Physician Routine Consulting Provider: Dylan Pollack Consult Reason/Comments: right leg wound, possible debridement needed Do you want consulting provider notified?: Yes Primary care physician: Physician Nonstaff Hospital Course: diagnoses: Acute hypoxic respiratory failure status post extubation and S/B mechanical ventilation. Patient currently breathing easily COPD with exacerbation Multiple pressure ulcers with suspected infection Moderate to severe calories and protein malnutrition multiple leg wounds focal scar versus speculated nodule in the right upper lobe History of hypertension, currently he is hypotensive Hyperlipidemia Dehydration Chronic altered mental status with some elements of acute related to metabolic encephalopathy. Possible dementia History of osteoarthritis History of chronic nonpressure ulcer of the back Hospital course: This is a pleasant 71 years old male with past medical history of COPD, Hyperlipidemia, Hypertension, Osteoarthritis , Metabolic Encaphalopathy, Acute kidney failure with tubular necrosis, Cachexia, Chronic non-pressure ulcer of back, Rhabdomylosis was sent from [facility] with increased weakness and lethargy over 2-3 days patient was found severe hypertension and tachycardic on admission and received several boluses of normal saline and started on antibiotic and steroids, however he deteriorated within 24 hours and he had to be intubated and sent to the intensive care unit. There he received extensive treatment and his been followed closely by several consultants including pulmonary, infectious disease, cardiology, Gen. surgery. Patient noted to have multiple wounds in the legs with no surrounding erythema or tenderness or swelling month there was also dry. Patient and family refused surgery. Patient gets stabilized and he got extubated and sent to the general medical floor. Currently patient is awake and alert, he is very weak and de-conditioned . Palliative on hospice care recommended for the patient however he declined however he wants to be DO NOT RESUSCITATE. On the day of discharge she denies chest pain or dyspnea, he is oriented to the surrounding and awake and follow commands. He is not in distress. He deniesany other complaints. He tolerates diet well he can about 100% of his lunch today.he is hemodynamically stable. Losartan was held because of hyperkalemia patient finished his antibiotic course and no need for further antibiotics upon discharge also patient is on prednisone 40,which will be tapered upon discharge and this will help lower his blood pressure. patient was cleared for discharge by all consultants including pulmonary and cardiology , infectious disease team , general surgery Problems and management plan were discussed with the patient and he verbalized understanding and acceptance Patient was found stable and can be discharged to ECF in guarded prognosis however he needs follow-up as an outpatient. Patient was instructed to follow up with PCP within one week and patient agrees patient is high-risk for decompensation and rehospitalization we recommend palliative consult as outpatient Physical exam -Gen: patient is a AAOx3, no distressabdomen generally weak and deconditioned CVS: S1-S2, RRR, no murmur Lungs: B/L CTA, no wheezing Abdomen: soft, no distention, no tenderness, positive bowel sounds Extremity: no leg edema or induration Time spent more than 35 minutes Plan - Discharge Summary Discharge Rx Participant: No New Discharge Prescriptions: No Action Metoprolol Tartrate [Lopressor] 25 mg PO TID@0700,1300,1900 Cephalexin [Keflex] 500 mg PO QID hydrALAZINE HCL [Apresoline] 100 mg PO TID@0500,1300,2100 Levothyroxine Sodium [Synthroid] 50 mcg PO DAILY@0500 Albuterol Inhaler [Ventolin Hfa Inhaler] 2 puff INHALATION RT-Q6H PRN PRN Reason: Shortness Of Breath Acetaminophen Tab [Tylenol] 650 mg PO Q4H PRN PRN Reason: Pain Or Fever > 100.5 Budesonide [Pulmicort] 0.5 mg INHALATION RT-BID amLODIPine [Norvasc] 10 mg PO DAILY traMADol HCL 50 mg PO Q6H PRN PRN Reason: Pain Discharge Medication List Acetaminophen Tab [Tylenol] 650 mg PO Q4H PRN 08/17/21 [History] Albuterol Inhaler [Ventolin Hfa Inhaler] 2 puff INHALATION RT-Q6H PRN 08/17/21 [History] Budesonide [Pulmicort] 0.5 mg INHALATION RT-BID 08/17/21 [History] Cephalexin [Keflex] 500 mg PO QID 08/17/21 [History] Levothyroxine Sodium [Synthroid] 50 mcg PO DAILY@0500 08/17/21 [History] Metoprolol Tartrate [Lopressor] 25 mg PO TID@0700,1300,1900 08/17/21 [History] amLODIPine [Norvasc] 10 mg PO DAILY 08/17/21 [History] hydrALAZINE HCL [Apresoline] 100 mg PO TID@0500,1300,2100 08/17/21 [History] traMADol HCL 50 mg PO Q6H PRN 08/17/21 [History] Follow up Appointment(s)/Referral(s): Nonstaff,Physician [Primary Care Provider] - 1-2 days
--- NOTE | 2021-09-07 14:32 | P.PN ---
Subjective Progress Note Date: 09/07/21 CHIEF COMPLAINT: Right leg wound HISTORY OF PRESENT ILLNESS: Patient is on regular medical floor. Lying in bed comfortably. Surgical service is following in regards to right leg pressure ulcer. Family has declined debridement. Afebrile. No new labs. Patient scheduled for discharge to [facility] today Patient seen and examined with Dr. corbin EXAM: VITAL SIGNS: Reviewed. ABDOMEN: Soft. Nondistended. Extremities right lower leg pressure ulceration with large scab ASSESSMENT: 1. Right lower leg pressure ulcer 2. Chronic unstageable sacral ulcer 3. Chronic unstageable heel ulcer PLAN: -No surgical intervention planned per family's request. -Continue supportive care Physician Director Of Corporate Sales note has been reviewed by physician. Signing provider agrees with the documented findings, assessment, and plan of care. Objective - Vital Signs Vital signs: Vital Signs Temp 98.0 F 09/07/21 07:00 Pulse 78 09/07/21 11:51 Resp 17 09/07/21 07:00 BP 163/67 09/07/21 07:00 Pulse Ox 97 09/07/21 07:38 FiO2 35 08/30/21 07:11 Intake & Output 09/06/21 09/07/21 09/07/21 18:59 06:59 18:59 Output Total 700 350 Balance -700 -350 Weight 60.9 kg Output: Urine 700 350 Other: Voiding Method Indwelling Catheter # Bowel Movements 1 ABP, PAP, CO, CI - Last Documented Arterial Blood Pressure 174/34 - Labs CBC & Chem 7: 09/05/21 08:16 09/05/21 08:16 Labs: Abnormal Lab Results - Last 24 Hours (Table) 09/06/21 09/07/21 Range/Units 18:36 04:20 POC Glucose (mg/dL) 179 H 123 H (70-110) mg/dL
[2021-09-08] MEDS: LEVOTHYROXINE 50 MCG TAB PO SCH (05:42)
[2021-09-08] MEDS: FORMOTEROL FUMARATE 20 MCG/2 ML NEBU INHALATION SCH ×2 (07:46→20:15)
[2021-09-08] MEDS: BUDESONIDE 1 MG/2 ML NEBU INHALATION SCH ×2 (07:46→20:15)
[2021-09-08] MEDS: IPRATROPIUM-ALBUTEROL 3 ML NEB INHALATION SCH ×4 (07:46→20:15)
[2021-09-08] MEDS: METOPROLOL TARTRATE 50 MG TAB PO SCH ×2 (10:02→20:40)
[2021-09-08] MEDS: AMIODARONE 200 MG TAB PO SCH ×2 (10:03→20:40)
[2021-09-08] MEDS: amLODIPine 10 MG TAB PO SCH (10:03)
[2021-09-08] MEDS: FAMOTIDINE 20 MG TAB PO SCH (10:03)
[2021-09-08] MEDS: predniSONE 20 MG TAB PO SCH (10:03)
--- NOTE | 2021-09-08 10:13 | CDI ---
Documentation Clarification Form Date: 09/08/2021 10:05 AM From: Laxmi Schmitt RN CCDS Admit Date: 08/17/2021 04:55:00 PM Patient Name: Dani Jimenes Visit Number: [id number] Discharge Date: ATTENTION: The Clinical Documentation Specialists (CDI) and [facility] Coding Staff appreciate your assistance in clarifying documentation. Please respond to the clarification below the line at the bottom and electronically sign. The CDI & [facility] Coding staff will review the response and follow-up if needed. Please note: Queries are made part of the Legal Health Record. If you have any questions, please contact the author of this message via ITS. Dr. Mac E Sheet Moderate to Severe Malnutrition is documented 09/07, DCS. Additional clarification regarding the severity of malnutrition is requested. History/Risk Factors: 71-year-old male presents to the ED via EMS from ECF with increased weakness and lethargy for two to three days. The patient is confused, looks cachectic and very frail. Medical history: COPD, HTN, Chronic pressure ulcers and acute kidney failure with ATN. Clinical Indicators: Admitting diagnosis: Multiple pressure ulcers with suspected infection. Possible severe sepsis. COPD with exacerbation and possible sepsis. 09/03, Medicine progress note: Patient is extremely cachectic and ill appearing and lethargic. 09/01,Nutritional Assessment: BMI 19 Hgt 5ft 6in Calculated ideal body wgt 64.5kg. Nutrition intake poor with Multiple pressure injuries. Estimated protein needs 77-129 grams a day. Estimated Energy national needs 1302 Kcal Estimated Fluid needs Fluid formula 1ml/Kcal Estimated fluid 1302. Patients intake is not adequate to meet nutritional needs. Treatment: Dietitian consult above. Ensure enlive TID , Tube feed at goal rate, Monitor supplement intake and oral intake. Monitor chemistry labs Please clarify which diagnosis is most appropriate: [ ] Moderate protein calorie malnutrition [ ] Severe protein calorie malnutrition [ ] Other (please specify) [ ] Unable to determine (Template Last Revised: May 2020) Moderate protein calorie malnutrition MTDD
--- NOTE | 2021-09-08 13:21 | P.PN ---
Subjective Progress Note Date: 09/08/21 CHIEF COMPLAINT: Right leg wound HISTORY OF PRESENT ILLNESS: Patient is on regular medical floor. Lying in bed comfortably. Surgical service is following in regards to right leg pressure ulcer. Family has declined debridement. Afebrile. No new labs. Patient scheduled for discharge to [facility] today pending insurance authorization Patient seen and examined with Dr. corbin EXAM: VITAL SIGNS: Reviewed. ABDOMEN: Soft. Nondistended. Extremities right lower leg pressure ulceration with large scab ASSESSMENT: 1. Right lower leg pressure ulcer 2. Chronic unstageable sacral ulcer 3. Chronic unstageable heel ulcer PLAN: -No surgical intervention planned per family's request. -Continue supportive care -Patient can be discharged from surgical standpoint Physician Endodontic Assistant note has been reviewed by physician. Signing provider agrees with the documented findings, assessment, and plan of care. Objective - Vital Signs Vital signs: Vital Signs Temp 98.1 F 09/08/21 09:12 Pulse 72 09/08/21 11:14 Resp 17 09/08/21 09:12 BP 167/64 09/08/21 09:12 Pulse Ox 97 09/08/21 09:12 FiO2 35 08/30/21 07:11 Intake & Output 09/07/21 09/08/21 09/08/21 18:59 06:59 18:59 Intake Total 840 Output Total 900 550 Balance -60 -550 Intake: Oral 840 Output: Urine 900 550 Other: Voiding Method Indwelling Catheter Indwelling Catheter # Bowel Movements 0 ABP, PAP, CO, CI - Last Documented Arterial Blood Pressure 174/34 - Labs CBC & Chem 7: 09/05/21 08:16 09/05/21 08:16
[2021-09-08] MEDS: ACETAMINOPHEN TAB 325 MG TAB PO PRN (14:58)
--- NOTE | 2021-09-08 19:52 | P.PN ---
Subjective This is a pleasant 71 years old male with past medical history of COPD, Hyperlipidemia, Hypertension, Osteoarthritis , Metabolic Encaphalopathy, Acute kidney failure with tubular necrosis, Cachexia, Chronic non-pressure ulcer of back, Rhabdomylosis was sent from [facility] with increased weakness and lethargy over the last 2-3days Patient is poor historian but as per staff with his he has been a fdc for the last 1-2 months and his been confused. pt looks cachectic and very frail, he is oriented to time ,place and person , but has no denture, his voice is muffled because of that he is been complaining from dyspnea and chest pain which is mild in the middle nonradiating and associated with very little cough. He says his shortness of breath was worse over the last 1 day and a half. Denies any abdominal pain or vomiting or diarrhea but he has low appetite. He denies any choking or swallow problem but he has no denture so we'll check for swallow evaluation Patient looks tachypneic with bilateral chest with some limited air entry but no ricardo wheezing. Patient states that he quit smoking about 10 years ago, used to smoke for more than 10 years. No alcohol or illicit drugs. He has multiple pressure ulcers he has one large pressure ulcers on the right leg laterally with drying scab Or any dressing . Also has multiple pressure ulcers with black eschar on both heels and left foot. The surrounding skin looks intact with no redness or swelling. On admission he was slightly tachypneic on 20, afebrile and heart rate was 84 and blood pressure 141/64, however overnight his blood pressure dropped with sys tolic 90s to 100, currently his blood pressure 104/68, also became tachycardic with heart rate 04/17/2049. He was saturating 9920% on 2-3 L oxygen via nasal cannula. He is mildly hypothermic at 97.2 His WBC is elevated at 17.7. Hemoglobin is 10.0. Platelet count 258. INR 0.9. BUN is 32 and creatinine 0.9. Troponin is 0.02 and less than 0.01. Glucose was on the low side 57 on admission and currently is 201. Urinalysis showed 1+ protein with no evidence of infection. Patient started on steroids and got a breathing treatment, IV fluids and started on amiodarone drips and Lovenox in the emergency room. D-dimer was elevated, therefore CTA of the chest was done which showed negative for pulmonary embolism, emphysematous changes with small pleural effusion. Also there is focal scattered versus speculated nodule in the right upper lobe we ordered stat CT of the brain and CT of the chest to rule out pulmonary embolism given his hypotension, tachycardia and tachypnea with elevated d-dimer. Also with mild hypoxia suspected. However patient confused per staff when he came in and could not be started on heparin drip before we rule out intracranial bleed before CT of the brain is also ordered with CT of the chest. Both tests came back negative 08/19/2021 Patient today during morning rounds found obtunded and responsive and unarousable with impending respiratory failure and he was transferred to the intensive care unit he got intubated and placed on mechanical ventilation with pulmonary/critical care team following closely and held with and management. His WBCs 11.6, hemoglobin 8.6, creatinine 1.4. chest x-ray sewn bilateral worsening infiltrates especially in the lower zones mood versus worsening infection His continued counseling atrial 60 mg, antibiotic form of Zosyn and amiodarone drip for developing A. fib and RVR. High-dose tenderness on hold 08/20/2021 Patient remains in the ICU intubated and sedated, he still tachypneic with respiratory rate of 28, his PEEP of 8.0 today. His hemoglobin is 7.1, creatinine 1.4. Remains on IV Solu-Medrol and Zosyn. Also is on amiodarone drip, and normal saline at 100 mL per hour. He still has bilateral leg ulceration with dried surface. 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 He is still on high PEEP relatively at 8 and FiO2 of 35%. He is tachypneic and tachycardic WBC 6.6, hemoglobin 7.5, creatinine improvement 1.2, chest x-ray showing no change. He remains on Zosyn, IV Solu-Medrol and normal saline I'm resume the care of the patient today 09/04/2021 Is currently status post extubation and was moved to the general medical floor on the room 463. He is lying in bed, mildly tachypneic, no dyspnea or respirat ory difficulty. No coughing or chest pain. No shortness of breath while at rest. He was saturating 97% on room air, breathing rate at 16-18. WBC 13.4, hemoglobin 8.9, potassium 4. Glucose controlled. Continue the prednisone 40 mg Losartan was held for hyperkalemia. Continue with Norvasc, metoprolol and amiodarone. Patient is DO NOT RESUSCITATE. Patient conference to me he does not want any surgical intervention, also he confirms to me he does not want hospice for now. 09/05/2021 Patient is awake and alert, breathing easily, mildly tachypneic. Tolerates diet well. No new complaints. No chest pain, dyspnea or abdominal pain. No weakness or numbness. He is hemodynamically stable. Labs checked today including CBC and BMP on they were stable. Remains on a prednisone 40 mg. Possible discharge in remains stable 09/06/2021 patient remains clinically stable. He is awake and alert, he is so fragile and weak. Patient also noncompliant with recommendations to surgical debridement of his legs. Also palliative consult is recommended for the patient and he declined for now. Patient finish his course of antibiotic and keep monitoring. No fever. Leukocytosis improving. Patient has no overt signs of infection. Therefore antibiotics at this point felt to be more risk than benefit. Also he is on the prednisone which may contribute to his mild leukocytosis. Patient has good appetite and he tolerates diet. Discussed the case with child welfare social worker, patient is medically stable for discharge pending placement However patient is high-risk for infection, hospitalization and or other complication given his multiple medical problems and fragile condition. Hospice care is recommended for the patient and he declined for now but he wants to be DO NOT RESUSCITATE 09/08/2021 Patient lying in bed most of the time, he denies any complaints, he still feels generally weak Vitals are stable. He tolerates diet well Discussed the case with child welfare social worker today, still pending Intermediate and long-term prognosis remains guarded Objective - Vital Signs Vital signs: Vital Signs Temp 98.1 F 09/08/21 09:12 Pulse 75 09/08/21 09:12 Resp 17 09/08/21 09:12 BP 167/64 09/08/21 09:12 Pulse Ox 97 09/08/21 09:12 FiO2 35 08/30/21 07:11 Intake & Output 09/07/21 09/08/21 09/08/21 18:59 06:59 18:59 Intake Total 840 Output Total 900 550 Balance -60 -550 Intake: Oral 840 Output: Urine 900 550 Other: Voiding Method Indwelling Catheter Indwelling Catheter # Bowel Movements 0 ABP, PAP, CO, CI - Last Documented Arterial Blood Pressure 174/34 - Exam GENERAL: The patient is awake and alert, feels generally weak. Thin build ENT: Pupils are round and equally reacting to light. EOMI. No scleral icterus. No conjunctival pallor. Normocephalic, atraumatic. No pharyngeal erythema. No thyromegaly. CARDIOVASCULAR: S1 and S2 present. No murmurs, rubs, or gallops. -PULMONARY: Chest is clear to auscmild wheezing. No crepitation Abdomen : Soft, nontender, nondistended, normoactive bowel sounds. No palpable organomegaly. MUSCULOSKELETAL: No joint swelling or deformity. -EXTREMITIES: No cyanosis, clubbing, or pedal edema. Multiple bilateral leg ulcers including both heels and right lateral leg. No evidence of overt surrounding cellulitis NEUROLOGICAL: Gross neurological examination did not reveal any focal deficits. SKIN: No rashes. no petechiae. - Labs CBC & Chem 7: 09/05/21 08:16 09/05/21 08:16 Assessment and Plan Assessment: Acute hypoxic respiratory failure status post extubation and S/B mechanical ventilation. Patient currently breathing easily COPD with exacerbation Multiple pressure ulcers with suspected infection Moderate to severe calories and protein malnutrition multiple leg wounds focal scar versus speculated nodule in the right upper lobe History of hypertension, currently he is hypotensive Hyperlipidemia Dehydration Chronic altered mental status with some elements of acute related to metabolic encephalopathy. Possible dementia History of osteoarthritis History of chronic nonpressure ulcer of the back Plan: This is a pleasant 71 years old male who presents with COPD and possible infected pressure ulcers and hypotension Continue with steroids currently on prednisone 40 mg Finished his course of IV antibiotics. Continue with amiodarone per chainstitch felled seam operator Check thyroid function, hemoglobin A1c and potential started the nursery. cardiology consult evaluated the patient Labs and medication were reviewed.. Continue same treatment. Continue with symptomatic treatment. Resume home medication. Monitor lytes and vitals. DVT and GI prophylaxis. Further recommendations depends on the clinical course of the patient DVT prophylaxis:no anticoagulation for DVT prophylaxis as his hemoglobin dropped during this hospitalization down to 6.4 on GI Prophylaxis: Pepcid PT/OT: Needs rehab Prognosis is guarded CODE STATUS DO NOT RESUSCITATE Patient is medically stable for discharge pending placement
[2021-09-09 02:10] VITALS: RESP 18
[2021-09-09] MEDS: LEVOTHYROXINE 50 MCG TAB PO SCH (05:07)
[2021-09-09] MEDS: METOPROLOL TARTRATE 50 MG TAB PO SCH (08:23)
[2021-09-09] MEDS: amLODIPine 10 MG TAB PO SCH (08:24)
[2021-09-09] MEDS: predniSONE 20 MG TAB PO SCH (08:24)
[2021-09-09] MEDS: FAMOTIDINE 20 MG TAB PO SCH (08:24)
[2021-09-09] MEDS: AMIODARONE 200 MG TAB PO SCH (08:24)
[2021-09-09] MEDS: IPRATROPIUM-ALBUTEROL 3 ML NEB INHALATION SCH ×2 (09:01→12:10)
[2021-09-09] MEDS: FORMOTEROL FUMARATE 20 MCG/2 ML NEBU INHALATION SCH (09:01)
[2021-09-09] MEDS: BUDESONIDE 1 MG/2 ML NEBU INHALATION SCH (09:01)
[2021-09-09 11:26] LABS: Glucose,Whole Blood 103 mg/dL (70-110)
[2021-09-09] MEDS: ACETAMINOPHEN TAB 325 MG TAB PO PRN (11:50)
--- NOTE | 2021-09-09 13:43 | P.DS ---
Providers Date of admission: 08/17/21 16:55 Attending physician: Kenny Acuna Consults: 08/17/21 17:36 Consult Physician Routine Consulting Provider: Rissa Escobar Consult Reason/Comments: SVT Do you want consulting provider notified?: Yes, Notify in am 08/18/21 06:57 Consult Physician Urgent Consulting Provider: Edmundo Orantes Consult Reason/Comments: copd Do you want consulting provider notified?: Yes 08/18/21 08:25 Consult Physician Urgent Consulting Provider: Wagner Medrano Consult Reason/Comments: leg wounds Do you want consulting provider notified?: Yes 08/23/21 10:05 Consult Physician Routine Consulting Provider: Dylan Pollack Consult Reason/Comments: right leg wound, possible debridement needed Do you want consulting provider notified?: Yes Primary care physician: Physician Nonstaff Hospital Course: diagnoses: Acute hypoxic respiratory failure status post extubation and S/p mechanical ventilation. Patient currently breathing easily on room air with saturation of 97% COPD with exacerbation Multiple pressure ulcers with suspected infection Moderate to severe calories and protein malnutrition multiple leg wounds focal scar versus speculated nodule in the right upper lobe History of hypertension, currently he is hypotensive Hyperlipidemia Dehydration Chronic altered mental status with some elements of acute related to metabolic encephalopathy. Possible dementia History of osteoarthritis History of chronic nonpressure ulcer of the back Hospital course: This is a pleasant 71 years old male with past medical history of COPD, Hyperlipidemia, Hypertension, Osteoarthritis , Metabolic Encaphalopathy, Acute kidney failure with tubular necrosis, Cachexia, Chronic non-pressure ulcer of back, Rhabdomylosis was sent from [facility] with increased weakness and lethargy over 2-3 days patient was found severe hypertension and tachycardic on admission and received several boluses of normal saline and started on antibiotic and steroids, however he deteriorated within 24 hours and he had to be intubated and sent to the intensive care unit. There he received extensive treatment and his been followed closely by several consultants including pulmonary, infectious disease, cardiology, Gen. surgery. Patient noted to have multiple wounds in the legs with no surrounding erythema or tenderness or swelling month there was also dry. Patient and family refused surgery. Patient gets stabilized and he got extubated and sent to the general medical floor. Currently patient is awake and alert, he is very weak and de-conditioned . Palliative on hospice care recommended for the patient however he declined however he wants to be DO NOT RESUSCITATE. On the day of discharge she denies chest pain or dyspnea, he is oriented to the surrounding and awake and follow commands. He is not in distress. He deniesany other complaints. He tolerates diet well he can about 100% of his lunch today.he is hemodynamically stable. Losartan was held because of hyperkalemia patient finished his antibiotic course and no need for further antibiotics upon discharge also patient is on prednisone 40,which will be tapered upon discharge and this will help lower his blood pressure. patient was cleared for discharge by all consultants including pulmonary and cardiology , infectious disease team , general surgery Problems and management plan were discussed with the patient and he verbalized understanding and acceptance Patient was found stable and can be discharged to F in guarded prognosis however he needs follow-up as an outpatient. Patient was instructed to follow up with PCP within one week and patient agrees patient is high-risk for decompensation and rehospitalization we recommend palliative consult as outpatient Physical exam -Gen: patient is a AAOx3, no distressabdomen generally weak and deconditioned CVS: S1-S2, RRR, no murmur Lungs: B/L CTA, no wheezing Abdomen: soft, no distention, no tenderness, positive bowel sounds Extremity: no leg edema or induration Time spent more than 35 minutes Plan - Discharge Summary Discharge Rx Participant: No New Discharge Prescriptions: New Docusate [Colace] 100 mg PO BID PRN cap PRN Reason: Constipation Metoprolol Tartrate [Lopressor] 100 mg PO BID tab Famotidine [Pepcid] 20 mg PO DAILY tab Amiodarone [Cordarone] 200 mg PO BID tab Ipratropium-Albuterol Nebulize [Duoneb 0.5 mg-3 mg/3 ml Soln] 3 ml INHALATION RT-Q4H PRN each PRN Reason: Shortness Of Breath Or Wheezing predniSONE 10 mg PO DIRECTED #25 tab Continue Levothyroxine Sodium [Synthroid] 50 mcg PO DAILY@0500 Albuterol Inhaler [Ventolin Hfa Inhaler] 2 puff INHALATION RT-Q6H PRN PRN Reason: Shortness Of Breath Acetaminophen Tab [Tylenol] 650 mg PO Q4H PRN PRN Reason: Pain Or Fever > 100.5 Budesonide [Pulmicort] 0.5 mg INHALATION RT-BID amLODIPine [Norvasc] 10 mg PO DAILY Discontinued Metoprolol Tartrate [Lopressor] 25 mg PO TID@0700,1300,1900 Cephalexin [Keflex] 500 mg PO QID hydrALAZINE HCL [Apresoline] 100 mg PO TID@0500,1300,2100 traMADol HCL 50 mg PO Q6H PRN PRN Reason: Pain Discharge Medication List Acetaminophen Tab [Tylenol] 650 mg PO Q4H PRN 08/17/21 [History] Albuterol Inhaler [Ventolin Hfa Inhaler] 2 puff INHALATION RT-Q6H PRN 08/17/21 [History] Budesonide [Pulmicort] 0.5 mg INHALATION RT-BID 08/17/21 [History] Levothyroxine Sodium [Synthroid] 50 mcg PO DAILY@0500 08/17/21 [History] amLODIPine [Norvasc] 10 mg PO DAILY 08/17/21 [History] Amiodarone [Cordarone] 200 mg PO BID tab 09/07/21 [Rx] Docusate [Colace] 100 mg PO BID PRN cap 09/07/21 [Rx] Famotidine [Pepcid] 20 mg PO DAILY tab 09/07/21 [Rx] Ipratropium-Albuterol Nebulize [Duoneb 0.5 mg-3 mg/3 ml Soln] 3 ml INHALATION RT-Q4H PRN each 09/07/21 [Rx] Metoprolol Tartrate [Lopressor] 100 mg PO BID tab 09/07/21 [Rx] predniSONE 10 mg PO DIRECTED #25 tab 09/07/21 [Rx] Follow up Appointment(s)/Referral(s): Edmundo Orantes DO [Doctor of Osteopathic Medicine] - 2 Weeks Nonstaff,Physician [Primary Care Provider] - 1-2 days Saloni Gomez MD [STAFF PHYSICIAN] - 1 Week (networking engineer ) Wagner Medrano MD [STAFF PHYSICIAN] - 2 Weeks Dylan Pollack MD [STAFF PHYSICIAN] - 2 Weeks Activity/Diet/Wound Care/Special Instructions: modified diet dysphagia level III: chopped Diet activity as tolerated patient will need wound care consult while in ECF Discharge Disposition: TRANSFER TO SNF/ECF
--- NOTE | 2021-09-09 13:51 | P.PN ---
Subjective Progress Note Date: 09/09/21 CHIEF COMPLAINT: Right leg wound HISTORY OF PRESENT ILLNESS: Patient is on regular medical floor. Lying in bed comfortably. Surgical service is following in regards to right leg pressure ulcer. Family has declined debridement. Afebrile. No new labs. Patient scheduled for discharge to [facility] today pending insurance authorization Patient seen and examined with Dr. corbin EXAM: VITAL SIGNS: Reviewed. ABDOMEN: Soft. Nondistended. Extremities right lower leg pressure ulceration with large scab ASSESSMENT: 1. Right lower leg pressure ulcer 2. Chronic unstageable sacral ulcer 3. Chronic unstageable heel ulcer PLAN: -No surgical intervention planned per family's request. 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 Signing provider agrees with the documented findings, assessment, and plan of care. Objective - Vital Signs Vital signs: Vital Signs Temp 98.8 F 09/09/21 08:00 Pulse 75 09/09/21 12:20 Resp 18 09/09/21 08:59 BP 159/65 09/09/21 08:00 Pulse Ox 97 09/09/21 08:00 FiO2 35 08/30/21 07:11 Intake & Output 09/08/21 09/09/21 09/09/21 18:59 06:59 18:59 Output Total 750 1500 Balance -750 -1500 Weight 60.9 kg Output: Urine 750 1500 Other: Voiding Method Indwelling Catheter Indwelling Catheter Indwelling Catheter ABP, PAP, CO, CI - Last Documented Arterial Blood Pressure 174/34 - Labs CBC & Chem 7: 09/05/21 08:16 09/05/21 08:16
[2021-09-09 15:48] VITALS: BP 145/65; PULSE 76; TEMP 99.2
== END 2021-09-09 15:50 | DRG 870 ==
LOC: EC 13:42 → 4SSUR 16:55 → 3SCARD 08-18 03:13 → 2SICU 08-19 09:23 → 4SSUR 09-01 10:53
PROVIDERS: ADMIT Hospitalist; ATTEND Hospitalist
PROC: 3E043XZ Introduction of Vasopressor into Central Vein, Percutaneous Approach (ICD-10-PCS; principal; 2021-08-19)
PROC: 0DH67UZ Insertion of Feeding Device into Stomach, Via Natural or Artificial Opening (ICD-10-PCS; principal; 2021-08-19)
PROC: 5A1955Z Respiratory Ventilation, Greater than 96 Consecutive Hours (ICD-10-PCS; principal; 2021-08-19)
PROC: 4A133B1 Monitoring of Arterial Pressure, Peripheral, Percutaneous Approach (ICD-10-PCS; principal; 2021-08-19)
PROC: 02HV33Z Insertion of Infusion Device into Superior Vena Cava, Percutaneous Approach (ICD-10-PCS; principal; 2021-08-19)
PROC: 3E0G76Z Introduction of Nutritional Substance into Upper GI, Via Natural or Artificial Opening (ICD-10-PCS; principal; 2021-08-19)
PROC: 0BH18EZ Insertion of Endotracheal Airway into Trachea, Via Natural or Artificial Opening Endoscopic (ICD-10-PCS; principal; 2021-08-19)
PROC: 03HY32Z Insertion of Monitoring Device into Upper Artery, Percutaneous Approach (ICD-10-PCS; principal; 2021-08-19)
PROC: 4A133J1 Monitoring of Arterial Pulse, Peripheral, Percutaneous Approach (ICD-10-PCS; principal; 2021-08-19)
PROC: 5A0935A Assistance with Respiratory Ventilation, Less than 24 Consecutive Hours, High Flow/Velocity Cannula (ICD-10-PCS; 2021-08-19)
PROC: 4A133B1 Monitoring of Arterial Pressure, Peripheral, Percutaneous Approach (ICD-10-PCS; 2021-08-22)
PROC: 4A133J1 Monitoring of Arterial Pulse, Peripheral, Percutaneous Approach (ICD-10-PCS; 2021-08-22)
PROC: 03HY32Z Insertion of Monitoring Device into Upper Artery, Percutaneous Approach (ICD-10-PCS; 2021-08-22)
PROC: 5A09357 Assistance with Respiratory Ventilation, Less than 24 Consecutive Hours, Continuous Positive Airway Pressure (ICD-10-PCS; 2021-08-27)
PROC: 05H933Z Insertion of Infusion Device into Right Brachial Vein, Percutaneous Approach (ICD-10-PCS; 2021-09-01)
DX: A41.9 Sepsis, unspecified organism (principal); L89.153 Pressure ulcer of sacral region, stage 3; E43 Unspecified severe protein-calorie malnutrition; G93.41 Metabolic encephalopathy; J69.0 Pneumonitis due to inhalation of food and vomit; J96.21 Acute and chronic respiratory failure with hypoxia; J96.22 Acute and chronic respiratory failure with hypercapnia; N17.0 Acute kidney failure with tubular necrosis; E87.0 Hyperosmolality and hypernatremia; E87.1 Hypo-osmolality and hyponatremia; I47.1 Supraventricular tachycardia; I48.19 Other persistent atrial fibrillation; I48.92 Unspecified atrial flutter; I82.502 Chronic embolism and thrombosis of unspecified deep veins of left lower extremity; J44.1 Chronic obstructive pulmonary disease with (acute) exacerbation; J44.0 Chronic obstructive pulmonary disease with (acute) lower respiratory infection; J90 Pleural effusion, not elsewhere classified; L03.119 Cellulitis of unspecified part of limb; L97.219 Non-pressure chronic ulcer of right calf with unspecified severity; L97.929 Non-pressure chronic ulcer of unspecified part of left lower leg with unspecified severity; M62.82 Rhabdomyolysis; L89.620 Pressure ulcer of left heel, unstageable; L89.610 Pressure ulcer of right heel, unstageable; F03.90 Unspecified dementia, unspecified severity, without behavioral disturbance, psychotic disturbance, mood disturbance, and anxiety; L89.890 Pressure ulcer of other site, unstageable; L89.229 Pressure ulcer of left hip, unspecified stage; L89.311 Pressure ulcer of right buttock, stage 1; L89.321 Pressure ulcer of left buttock, stage 1; E03.9 Hypothyroidism, unspecified; E87.8 Other disorders of electrolyte and fluid balance, not elsewhere classified; R62.7 Adult failure to thrive; I10 Essential (primary) hypertension; L97.519 Non-pressure chronic ulcer of other part of right foot with unspecified severity; I08.0 Rheumatic disorders of both mitral and aortic valves; L97.529 Non-pressure chronic ulcer of other part of left foot with unspecified severity; D64.9 Anemia, unspecified; Z68.21 Body mass index [BMI] 21.0-21.9, adult; Z66 Do not resuscitate; Z71.3 Dietary counseling and surveillance; E78.5 Hyperlipidemia, unspecified; E86.0 Dehydration; E86.1 Hypovolemia; E87.5 Hyperkalemia; E87.6 Hypokalemia; M19.90 Unspecified osteoarthritis, unspecified site; B87.1 Wound myiasis; S70.11XA Contusion of right thigh, initial encounter; Z53.9 Procedure and treatment not carried out, unspecified reason; Z79.890 Hormone replacement therapy; Z79.899 Other long term (current) drug therapy; Z87.891 Personal history of nicotine dependence; Z91.19 Patient's noncompliance with other medical treatment and regimen; R91.8 Other nonspecific abnormal finding of lung field; Z87.01 Personal history of pneumonia (recurrent)
CPT/HCPCS: 36410; 36415; 36600; 70450; 71045; 71046; 71275; 76937; 80048; 80053; 80076; 81001; 82805; 83036; 83605; 83735; 84132; 84145; 84443; 84484; 85025; 85027; 85379; 85610; 85730; 86140; 86850; 86900; 86901; 86920; 87040; 87070; 87205; 93005; 93306; 93970; 94002; 94003; 94640; 94660; 94760; 96374; 96375; 96376; 99285

== ENCOUNTER 2021-09-14 19:37 | Emergency (ER) | payer BC, MEDICARE ==
--- NOTE | 2021-09-14 19:51 | ED ---
General Adult HPI - General Stated complaint: Abnormal Labs Time Seen by Provider: 09/14/21 19:50 - History of Present Illness Initial comments: Dani is a 71-year-old male brought [facility] the [facility], outpatient labs revealed a hemoglobin of 6.4, patient does have a history of recurrent anemia likely related to chronic disease, patient denies any acute complaints today. - Related Data Home Medications Medication Instructions Recorded Confirmed RX: Albuterol Inhaler [Ventolin 2 puff INHALATION RT-Q6H PRN 08/17/21 09/14/21 Hfa Inhaler] RX: Budesonide [Pulmicort] 0.5 mg INHALATION RT-BID 08/17/21 09/14/21 RX: Levothyroxine Sodium 50 mcg PO DAILY 08/17/21 09/14/21 [Synthroid] RX: amLODIPine [Norvasc] 10 mg PO DAILY 08/17/21 09/14/21 Acetaminophen [Tylenol 8 Hour] 650 mg PO Q4H PRN 09/14/21 09/14/21 Ipratropium-Albuterol Nebulize 3 ml INHALATION RT-Q4H PRN 09/14/21 09/14/21 [Duoneb 0.5 mg-3 mg/3 ml Soln] Metoprolol Tartrate [Lopressor] 100 mg PO BID 09/14/21 09/14/21 RX: Ipratropium-Albuterol Nebulize 3 ml INHALATION RT-Q6H 09/14/21 09/14/21 [Duoneb 0.5 mg-3 mg/3 ml Soln] predniSONE [Deltasone] 20 mg PO DAILY 09/14/21 09/14/21 Previous Rx's Medication Instructions Recorded RX: Amiodarone [Cordarone] 200 mg PO BID tab 09/07/21 RX: Docusate [Colace] 100 mg PO BID PRN cap 09/07/21 RX: Famotidine [Pepcid] 20 mg PO DAILY tab 09/07/21 Allergies Allergy/AdvReac Type Severity Reaction Status Date / Time No Known Allergies Allergy Verified 09/14/21 20:51 Review of Systems ROS Statement: Those systems with pertinent positive or pertinent negative responses have been documented in the HPI. ROS Other: All systems not noted in ROS Statement are negative. Past Medical History Past Medical History: COPD, Hyperlipidemia, Hypertension, Osteoarthritis (OA) Additional Past Medical History / Comment(s): Anemia, Metabolic Encaphalopathy, Acute kidney failure with tubular necrosis, Cachexia, Chronic non-pressure ulcer of back, Rhabdomylosis, History of Any Multi-Drug Resistant Organisms: None Reported Past Surgical History: No Surgical Hx Reported Additional Past Surgical History / Comment(s): colonoscopy Past Anesthesia/Blood Transfusion Reactions: No Reported Reaction Past Psychological History: No Psychological Hx Reported Smoking Status: Former smoker Past Alcohol Use History: Unable to Obtain Past Drug Use History: None Reported General Exam - General Exam Comments Initial Comments: Physical Exam GENERAL: Chronically ill appearing Generalized edema HENT: Normocephalic, Atraumatic. EYES: PERRL, EOMI PULMONARY: Unlabored respirations. CARDIOVASCULAR: RRR ABDOMEN: Non-distended SKIN: Pale Pressure ulcer right lower leg Ulcers on feet : Deferred NEUROLOGIC: Alert and oriented MUSCULOSKELETAL: Bilateral lower extremities in boots PSYCHIATRIC: No SI/HI Course Vital Signs 09/14/21 19:38 Temperature 98 F Pulse Rate 84 Respiratory 16 Rate Blood Pressure 149/59 O2 Sat by Pulse 99 Oximetry Medical Decision Making - Medical Decision Making Pt was seen, labs were repeated, Hgb stable at 10.8 - Lab Data Result diagrams: 09/14/21 20:08 09/14/21 20:08 Lab Results 09/14/21 09/14/21 09/14/21 Range/Units 20:08 20:08 20:08 WBC 8.2 (3.8-10.6) k/uL RBC 3.47 L (4.30-5.90) m/uL Hgb 10.8 L (13.0-17.5) gm/dL Hct 34.7 L (39.0-53.0) % MCV 99.9 (80.0-100.0) fL MCH 31.2 (25.0-35.0) pg MCHC 31.2 (31.0-37.0) g/dL RDW 18.9 H (11.5-15.5) % Plt Count 196 (150-450) k/uL MPV 10.2 Neutrophils % 93 % Lymphocytes % 4 % Monocytes % 2 % Eosinophils % 0 % Basophils % 0 % Neutrophils # 7.7 (1.3-7.7) k/uL Lymphocytes # 0.3 L (1.0-4.8) k/uL Monocytes # 0.2 (0-1.0) k/uL Eosinophils # 0.0 (0-0.7) k/uL Basophils # 0.0 (0-0.2) k/uL Hypochromasia Marked Anisocytosis Slight Macrocytosis Moderate Sodium 140 (137-145) mmol/L Potassium 4.4 (3.5-5.1) mmol/L Chloride 107 (98-107) mmol/L Carbon Dioxide 30 (22-30) mmol/L Anion Gap 3 mmol/L BUN 31 H (9-20) mg/dL Creatinine 0.70 (0.66-1.25) mg/dL Est GFR (CKD-EPI)AfAm >90 (>60 ml/min/1.73 sqM) Est GFR (CKD-EPI)NonAf >90 (>60 ml/min/1.73 sqM) Glucose 169 H (74-99) mg/dL Calcium 8.1 L (8.4-10.2) mg/dL Total Bilirubin <0.1 L (0.2-1.3) mg/dL AST 21 (17-59) U/L ALT 54 H (4-49) U/L Alkaline Phosphatase 154 H (38-126) U/L Total Protein 4.6 L (6.3-8.2) g/dL Albumin 2.2 L (3.5-5.0) g/dL Blood Type A Positive Blood Type Recheck A Pos Bld Type Recheck Status No Antibody Screen NEGATIVE Spec Expiration Date 09/17/20212307 Disposition Clinical Impression: Abnormal laboratory test result Disposition: HOME SELF-CARE Condition: Stable Additional Instructions: Hemoglobin today was 10, no indication for transfusion, resume normal care Is patient prescribed a controlled substance at d/c from ED?: No Referrals: Nonstaff,Physician [REFERRING] - 1-2 days
[2021-09-14 19:58] VITALS: BP 149/59; RESP 16; TEMP 98
[2021-09-14 20:13] LABS: Anisocytosis Slight; Basophils % (A) 0 %; Eosinophils % (A) 0 %; HCT 34.7 % (39.0-53.0); HGB 10.8 gm/dL (13.0-17.5); Hypochromasia Marked; Lymphocytes # (A) 0.3 k/uL (1.0-4.8); Lymphocytes % (A) 4 %; MCH 31.2 pg (25.0-35.0); MCHC 31.2 g/dL (31.0-37.0); MCV 99.9 fL (80.0-100.0); Macrocytosis Moderate; Mean Platelet Volume 10.2; Monocytes # (A) 0.2 k/uL (0-1.0); Monocytes % (A) 2 %; Neutrophils # (A) 7.7 k/uL (1.3-7.7); Neutrophils % (A) 93 %; Platelet Count 196 k/uL (150-450); RBC 3.47 m/uL (4.30-5.90); RDW 18.9 % (11.5-15.5); WBC 8.2 k/uL (3.8-10.6)
[2021-09-14 20:22] LABS: ALT 54 U/L (4-49); AST 21 U/L (17-59); African American GFR (CKD) >90 (>60 ml/min/1.73 sqM); Albumin 2.2 g/dL (3.5-5.0); Alkaline Phosphatase 154 U/L (38-126); Anion Gap 3 mmol/L; Blood Urea Nitrogen 31 mg/dL (9-20); Calcium 8.1 mg/dL (8.4-10.2); Carbon Dioxide 30 mmol/L (22-30); Chloride 107 mmol/L (98-107); Glucose 169 mg/dL (74-99); Non-African American GFR(CKD) >90 (>60 ml/min/1.73 sqM); Potassium 4.4 mmol/L (3.5-5.1); Sodium 140 mmol/L (137-145); Total Bilirubin <0.1 mg/dL (0.2-1.3); Total Protein 4.6 g/dL (6.3-8.2)
[2021-09-14] MEDS ORDERED: MORPHINE SULFATE 4 MG/ML SYRINGE IVP STA (20:37)
[2021-09-14 22:06] VITALS: PULSE 82
== END 2021-09-14 22:06 | disposition home or self-care (01) ==
LOC: EC 19:37
DX: R79.9 Abnormal finding of blood chemistry, unspecified (principal); J44.9 Chronic obstructive pulmonary disease, unspecified; I10 Essential (primary) hypertension; Z79.51 Long term (current) use of inhaled steroids; Z79.899 Other long term (current) drug therapy
CPT/HCPCS: 86900; 86901; 80053; 85025; 86850; 99283; 96374; J2270; 36415